=== PATIENT | male | born 1955 | race Caucasian/White ===

== ENCOUNTER 2017-04-25 17:47 | Inpatient (IN) ==
[2017-04-25] MEDS ORDERED: 0.9 % Sodium Chloride 250 ML IVC ONE ×2 (18:13→18:30)
--- NOTE | 2017-04-25 18:20 | Emergency Department Note ---
Disposition Clinical Impression: Pre-syncope Disposition: Still a Patient Condition: Good [facility]: [facility] Care Provider[facility] - Forms: ED Satisfaction Letter Time of Disposition: 19:02 General Adult HPI - General Chief complaint: ED Weakness Stated complaint: low blood pressure Time Seen by Provider: 04/25/17 17:52 Source: patient, EMS Limitations: no limitations Nursing Notes Reviewed: Yes Vital Signs Reviewed: Yes - History of Present Illness HPI Narrative: Patient complaining of weakness that started today after dialysis. States that he was hypotensive on dialysis. After he got home he was weak and felt like he may pass out. Pain Scale: 0 - Related Data Home Medications Medication Instructions Recorded Confirmed Atorvastatin Calcium [Lipitor] 20 mg PO DAILY 10/04/16 10/22/16 Calcium Acetate [Phos-LO] 1,334 mg PO TIDWM 10/04/16 10/22/16 Carboxymethylcellulos/Glycerin 1 drop BOTH EYES QID 10/04/16 10/22/16 [Refresh Optive Gel Eye Drops] Fluticasone Propionate Nasal 100 mcg NS DAILY 10/04/16 10/22/16 [Flonase] Furosemide [Lasix] 40 mg PO QAM 10/04/16 10/22/16 Gabapentin [Neurontin] 300 mg PO BID 10/04/16 10/22/16 Insulin ASPART [NovoLOG] 35 unit SQ BIDWM 10/04/16 10/22/16 Insulin Glargine [Lantus] 78 unit SQ BID 10/04/16 10/22/16 Loratadine [Claritin] 10 mg PO DAILY 10/04/16 10/22/16 [place]-3 Acid Ethyl Esters [Lovaza] 4 gm PO DAILY 10/04/16 10/22/16 Oxycodone HCl 10 mg PO Q6H PRN 10/04/16 10/22/16 Pantoprazole Sodium [Protonix] 40 mg PO DAILY 10/04/16 10/22/16 Paroxetine [Paxil] 20 mg PO QAM 10/04/16 10/22/16 Ranitidine HCl [Heartburn Relief] 150 mg PO DAILY 10/04/16 10/22/16 Sod Chloride/B-6/Zinc Acet/Ca 1 - 2 spray TP AD 10/04/16 10/22/16 [Wound Cleanser] Tamsulosin [Flomax] 0.4 mg PO DAILY 10/04/16 10/22/16 amLODIPine [Norvasc] 5 mg PO DAILY 10/04/16 10/22/16 Furosemide [Lasix] 20 mg PO QPM 10/22/16 10/22/16 Ranolazine [Ranexa] 500 mg PO BID 10/22/16 10/22/16 Previous Rx's Medication Instructions Recorded Nitroglycerin 0.4 mg SL Q5MIN PRN #1 / 10/07/16 Sevelamer [Renvela] 1,600 mg PO TIDWM #180 tablet 10/07/16 Aspirin 81 mg PO DAILY #30 tab.chew 10/24/16 Atorvastatin [Lipitor] 20 mg PO DAILY #30 tablet 10/24/16 Clopidogrel [Plavix] 75 mg PO DAILY #30 tablet 10/24/16 Isosorbide MONOnitrate (24 HR) 30 mg PO DAILY #30 tab.er.24h 10/24/16 [Imdur] Metoprolol [Lopressor] 50 mg PO BID #60 tablet 10/24/16 Allergies Allergy/AdvReac Type Severity Reaction Status Date / Time codeine Allergy Unknown Hives Verified 10/04/16 16:06 Methadone Allergy Unknown Rash Verified 10/04/16 16:06 Penicillins [PCN] Allergy Unknown Rash Verified 10/04/16 16:06 promethazine [From Phenergan] Allergy Unknown Hives Verified 10/04/16 16:06 trazodone Allergy Unknown Itching Verified 10/04/16 16:06 Review of Systems: Patient denies any fevers or chills. He denies any headaches or vision changes. He does report generalized weakness and the feeling of near-syncope. He denies any chest pain or shortness of breath. He denies Coughs or congestion. He denies any abdominal pain nausea vomiting or diarrhea. He does report that his urine has a foul smell occasionally however it is not darker and there is no burning on urination. He denies any hematochezia hematuria or melena. He denies any swelling to his extremities. He states that he did finish his dialysis today. He does this 3 times a week. All systems ED: reviewed and negative except as stated. Past Medical History - Past Medical History Medical history: Reports: coronary artery disease, diabetes, hyperlipidemia, hypertension, renal disease, other Surgical history: Reports: angioplasty/stent (1997), coronary bypass (CABG) ( 1998 and 2002) Psychiatric history: Reports: bipolar - Social History Smoking Status: Never smoker Smokeless Tobacco Status: No Alcohol use: Reports: none Drug use: Reports: opiates Physical Exam - General Limitations: no limitations General appearance: alert, in no apparent distress - Head Head exam: atraumatic, normocephalic, normal inspection - Eye Eye exam: Present: normal appearance, PERRL, EOMI. Absent: scleral icterus - ENT ENT exam: normal exam, normal oropharynx, mucous membranes moist - Neck Neck exam: Present: normal inspection, full ROM, trachea midline. Absent: tenderness, meningismus, lymphadenopathy - Chest Chest inspection: Present: normal inspection, symmetric chest wall rise. Absent : tenderness, rash, abscess - Respiratory Respiratory exam: Present: normal lung sounds bilaterally. Absent: respiratory distress, wheezes - Cardiovascular Cardiovascular exam: Present: regular rate, normal rhythm, normal heart sounds - Abdominal Exam Abdominal exam: Present: soft, Non-Tender, normal bowel sounds. Absent: tenderness, distention, guarding, rebound, rigidity, organomegaly - Extremities Exam Extremities exam: Present: normal inspection, full ROM, normal capillary refill. Absent: tenderness, pedal edema - Back Exam Back exam: Present: normal inspection, full ROM. Absent: tenderness, CVA tenderness (R), CVA tenderness (L) - Neurological Exam Neurological exam: Present: alert, oriented X3 - Psychiatric Psychiatric exam: Present: normal affect, normal mood - Skin Skin exam: Present: warm, dry, intact, normal color Course Course Narrative: Male dialysis patient presents the emergency department complaining of generalized weakness. He states he was at dialysis today and had low blood pressure. He states it was in the 70s systolic. He is to come back out and he is discharged home. He states when he got home he felt dizzy lightheaded like he may pass out. He did not have a syncopal episode. He states that he still feels weak at this time. Patient is hypotensive in the 80's. He denies any chest pain or shortness of breath. He denies any blurry vision or headaches. He denies any urinary symptoms or trouble defecating. He states that his urine does have a foul odor occasionally. He denies any hematochezia or melena. He denies any hematuria. He is alert and oriented 3 mentating appropriately. He states that he had a stress test done yesterday. We will give the patient a small fluid challenge while he is here. We will get a basic lab workup. On patient's EKG he does have some worsening of his ST depressions in leads V4 V5 and V6. I anticipate admission for this patient however he will be signed out to the oncoming night staff. I signed this patient out to the night staff. Vital Signs Temperature 97.7 F 04/25/17 17:50 Pulse Rate 83 04/25/17 17:50 Respiratory Rate 18 04/25/17 17:50 Blood Pressure 88/76 04/25/17 17:50 O2 Sat by Pulse Oximetry 99 04/25/17 17:50 Temperature 97.7 F 04/25/17 17:50 Pulse Rate 81 04/25/17 19:06 Respiratory Rate 16 04/25/17 19:06 Blood Pressure 115/68 04/25/17 19:06 O2 Sat by Pulse Oximetry 100 04/25/17 19:06 Oxygen Delivery Oxygen Delivery Room Air Medical Decision Making - Lab Data Result diagrams: 04/25/17 18:58 Lab Results 04/25/17 04/25/17 Range/Units 18:58 18:58 WBC 4.0 L (4.3-11.1) K/mcL RBC 3.06 L (4.19-5.50) M/mcL Hgb 9.4 L (12.9-16.9) g/dL Hct 27.1 L (37.5-50.1) % MCV 88.6 (83.0-100.0) fL MCH 30.7 (28.0-33.3) pg MCHC 34.7 (31.6-35.5) g/dL RDW 13.4 (11.5-14.5) % Plt Count 116 L (140-400) K/mcL MPV 10.5 (9.4-12.4) fL Immature Gran % 0.8 (0-4) % Seg Neutrophils % 64.0 % Lymphocytes % 22.6 % Monocytes % 9.8 % Eosinophils % 2.3 % Basophils % 0.5 % Neutrophils # 2.6 (1.6-8.9) K/mcL Lymphocytes # 0.9 (0.6-4.6) K/mcL Monocytes # 0.4 (0.0-1.3) K/mcL Eosinophils # 0.1 (0.0-0.6) K/mcL Basophils # 0.0 (0.0-0.2) K/mcL Troponin I 1.25 H* (0-0.03) ng/mL - EKG Data EKG #1 EKG attestation: Yes I reviewed and interpreted this EKG. EKG results narrative: Normal sinus rhythm at a rate of 83. NC interval is 174. QRS duration is 91. QT is 380. QTC is 420. Patient has T-wave inversions in lead one to aVL aVF and V4 V5 and V6. He has ST depressions in leads 1 to aVL V4 V5 and V6. He has ST elevation in leads aVR. The only significant change that I can appreciate from previous EKG dated 10/22/2016 was good deepening of his T-wave inversions in leads V4 V5 and V6. Attestation Statement - Attestation Attestation: I, Virgil Carey, examined this patient and my medical decision-making was reviewed with the J[employer]AG CLIPPER/PA/Advanced Practice Nurse/Resident Physician. I agree with the documented findings, disposition and treatment plan as described except to the extent set forth below. 61-year-old male presents after a near syncopal episode at home. Patient states he is dialysis today and was hypotensive after the treatment. He had a blood pressure in the 70s at that time. He went home feeling well after a small amount of IV fluids. While at home he developed near syncopal episode where he became mildly mildly nauseated. Patient denies chest pain emergency department. He is not short of breath or to and denies other symptoms. EKG was concerning for a normal sinus rhythm with a rate of [address] depressions in V5 V6 with mild elevation in aVR. Patient has no chest pain at this time however we will obtain labs and evaluate further for possible ACS. Patient had a stress testyesterday which was technically difficult and showed a mild area of ischemia on the imaging portion of the stress test. At this time this patient is pending laboratory results and he will be signed out to the night physician pending further evaluation and disposition.
[2017-04-25 19:08] LABS: Basophils % 0.5 %; Eosinophils # 0.1 K/mcL (0.0-0.6); Eosinophils % 2.3 %; Hematocrit 27.1 % (37.5-50.1); Hemoglobin 9.4 g/dL (12.9-16.9); Immature Granulocytes % 0.8 % (0-4); Lymphocytes # 0.9 K/mcL (0.6-4.6); Lymphocytes % 22.6 %; Mean Corpuscular HGB Conc 34.7 g/dL (31.6-35.5); Mean Corpuscular Hemoglobin 30.7 pg (28.0-33.3); Mean Corpuscular Volume 88.6 fL (83.0-100.0); Mean Platelet Volume 10.5 fL (9.4-12.4); Monocytes # 0.4 K/mcL (0.0-1.3); Monocytes % 9.8 %; Neutrophils # 2.6 K/mcL (1.6-8.9); Platelet Count 116 K/mcL (140-400); Red Blood Count 3.06 M/mcL (4.19-5.50); Red Cell Distribution Width 13.4 % (11.5-14.5)
--- NOTE | 2017-04-25 19:11 | Emergency Department Note ---
Disposition Clinical Impression: NSTEMI (non-ST elevated myocardial infarction) Disposition: Admitted As Inpatient Condition: Fair [facility]errals: [facility] [Primary Care Provider[facility] - Forms: ED Satisfaction Letter General Adult HPI - General Chief complaint: ED Weakness Stated complaint: low blood pressure Time Seen by Provider: 04/25/17 17:52 Source: patient, EMS Mode of arrival: EMS Limitations: no limitations Nursing Notes Reviewed: Yes Vital Signs Reviewed: Yes - History of Present Illness HPI Narrative: 61-year-old male history of end-stage renal disease dialysis dependent, CAD, CABG, hypertension who presents to the ER with a chief complaint of of weakness and dizziness. Patient reports that he was at dialysis earlier today and that his blood pressure was low. He states that this happens periodically and they recently changed his metoprolol from 100 mg twice a day to 25 mg twice a day. He states that he went home and then became dizzy and had a near syncopal episode. Patient reports he has felt weak ever since dialysis. He denies any chest pain or shortness of breath. He denies syncope. No other complaints. Pt Subjective Complaint: hypotension, weakness Onset (ago): hour(s) Radiation: non-radiation Pain Scale: 0 Consistency: constant Improves with: nothing Worsens with: nothing Associated symptoms: Reports: weakness. Denies: chest pain, cough, diaphoresis , nausea/vomiting, shortness of breath Treatments Prior to Arrival: none - Related Data Home Medications Medication Instructions Recorded Confirmed Atorvastatin Calcium [Lipitor] 20 mg PO DAILY 10/04/16 10/22/16 Calcium Acetate [Phos-LO] 1,334 mg PO TIDWM 10/04/16 10/22/16 Carboxymethylcellulos/Glycerin 1 drop BOTH EYES QID 10/04/16 10/22/16 [Refresh Optive Gel Eye Drops] Fluticasone Propionate Nasal 100 mcg NS DAILY 10/04/16 10/22/16 [Flonase] Furosemide [Lasix] 40 mg PO QAM 10/04/16 10/22/16 Gabapentin [Neurontin] 300 mg PO BID 10/04/16 10/22/16 Insulin ASPART [NovoLOG] 35 unit SQ BIDWM 10/04/16 10/22/16 Insulin Glargine [Lantus] 78 unit SQ BID 10/04/16 10/22/16 Loratadine [Claritin] 10 mg PO DAILY 10/04/16 10/22/16 [place]-3 Acid Ethyl Esters [Lovaza] 4 gm PO DAILY 10/04/16 10/22/16 Oxycodone HCl 10 mg PO Q6H PRN 10/04/16 10/22/16 Pantoprazole Sodium [Protonix] 40 mg PO DAILY 10/04/16 10/22/16 Paroxetine [Paxil] 20 mg PO QAM 10/04/16 10/22/16 Ranitidine HCl [Heartburn Relief] 150 mg PO DAILY 10/04/16 10/22/16 Sod Chloride/B-6/Zinc Acet/Ca 1 - 2 spray TP AD 10/04/16 10/22/16 [Wound Cleanser] Tamsulosin [Flomax] 0.4 mg PO DAILY 10/04/16 10/22/16 amLODIPine [Norvasc] 5 mg PO DAILY 10/04/16 10/22/16 Furosemide [Lasix] 20 mg PO QPM 10/22/16 10/22/16 Ranolazine [Ranexa] 500 mg PO BID 10/22/16 10/22/16 Previous Rx's Medication Instructions Recorded Nitroglycerin 0.4 mg SL Q5MIN PRN #1 / 10/07/16 Sevelamer [Renvela] 1,600 mg PO TIDWM #180 tablet 10/07/16 Aspirin 81 mg PO DAILY #30 tab.chew 10/24/16 Atorvastatin [Lipitor] 20 mg PO DAILY #30 tablet 10/24/16 Clopidogrel [Plavix] 75 mg PO DAILY #30 tablet 10/24/16 Isosorbide MONOnitrate (24 HR) 30 mg PO DAILY #30 tab.er.24h 10/24/16 [Imdur] Metoprolol [Lopressor] 50 mg PO BID #60 tablet 10/24/16 Allergies Allergy/AdvReac Type Severity Reaction Status Date / Time codeine Allergy Unknown Hives Verified 10/04/16 16:06 Methadone Allergy Unknown Rash Verified 10/04/16 16:06 Penicillins [PCN] Allergy Unknown Rash Verified 10/04/16 16:06 promethazine [From Phenergan] Allergy Unknown Hives Verified 10/04/16 16:06 trazodone Allergy Unknown Itching Verified 10/04/16 16:06 All systems ED: reviewed and negative except as stated. Constitutional: Denies: fever Cardiovascular: Denies: chest pain Respiratory: Denies: cough, dyspnea Gastrointestinal: Denies: abdominal pain, nausea, vomiting Neurological: Reports: weakness Past Medical History - Past Medical History Attestation: Yes The following information was validated with the patient. Source: patient Medical history: Reports: coronary artery disease, diabetes, hyperlipidemia, hypertension, renal disease, other Surgical history: Reports: angioplasty/stent (1997), coronary bypass (CABG) ( 1998 and 2002) Psychiatric history: Reports: bipolar - Social History Smoking Status: Never smoker Smokeless Tobacco Status: No Alcohol use: Reports: none Drug use: Reports: opiates Physical Exam - General Limitations: no limitations General appearance: alert, in no apparent distress - Head Head exam: atraumatic, normocephalic, normal inspection - Eye Eye exam: Present: normal appearance, EOMI - ENT ENT exam: normal exam - Neck Neck exam: Present: normal inspection - Chest Chest inspection: Present: normal inspection, symmetric chest wall rise - Respiratory Respiratory exam: Present: normal lung sounds bilaterally - Cardiovascular Cardiovascular exam: Present: regular rate, normal rhythm, normal heart sounds - Abdominal Exam Abdominal exam: Present: soft, Non-Tender. Absent: tenderness - Extremities Exam Extremities exam: Present: normal inspection, full ROM - Expanded Upper Extremity Exam Shoulder exam: Present: normal inspection, full ROM Arm exam: Present: normal inspection, full ROM Elbow exam: Present: normal inspection, full ROM Forearm/Wrist exam: Present: normal inspection, full ROM Hand exam: Present: normal inspection, full ROM - Expanded Lower Extremity Exam Hip/Pelvis exam: Present: normal inspection, full ROM Upper leg exam: Present: normal inspection, full ROM Knee exam: Present: normal inspection, full ROM Lower leg exam: Present: normal inspection, full ROM Ankle exam: Present: normal inspection, full ROM Foot/toe exam: Present: normal inspection, full ROM - Neurological Exam Neurological exam: Present: alert - Psychiatric Psychiatric exam: Present: normal affect, normal mood - Skin Skin exam: Present: warm, dry, intact, normal color Course Course Narrative: Patient seen and examined. Vital signs reviewed. EKG reviewed as well which shows worsening ST depressions as compared to previous. We will obtain serum chemistry S the patient had labs earlier today and he will likely require admission for his new EKG findings and symptomatology. - Reevaluation(s) Reevaluation #1: I discussed results of labwork and cardiology recommendations with the patient. He is agreeable with staying in the hospital. He still denies chest pain at this time. - Consultations Consultation #1: I discussed this case with the on-call clinical manager home care Dr. Carrillo. Discussed patient's history, vitals, prior cardiac history and current lab and EKG findings. He recommends to heparinize the patient and they will see them in the morning in consultation. Vital Signs Temperature 97.7 F 04/25/17 17:50 Pulse Rate 83 04/25/17 17:50 Respiratory Rate 18 04/25/17 17:50 Blood Pressure 88/76 04/25/17 17:50 O2 Sat by Pulse Oximetry 99 04/25/17 17:50 Temperature 97.7 F 04/25/17 17:50 Pulse Rate 81 04/25/17 19:06 Respiratory Rate 16 04/25/17 19:06 Blood Pressure 115/68 04/25/17 19:06 O2 Sat by Pulse Oximetry 100 04/25/17 19:06 Oxygen Delivery Oxygen Delivery Room Air Medical Decision Making - MDM Narrative Medical decision making narrative: 61-year-old male presents to the ER after dialysis due to weakness and dizziness. He was hypotensive earlier today. Here his EKG shows new ischemic changes from his prior EKG with ST depressions in the lateral leads. His troponin is elevated at 1.25. This case was discussed with the clinical manager home care who recommended to heparinize the patient and admit for serial troponins and cardiac consultation in the morning. - Lab Data Lab results reviewed: Yes I reviewed the patient's lab results. Result diagrams: 04/25/17 18:58 04/25/17 18:58 Lab Results 04/25/17 04/25/17 04/25/17 Range/Units 18:58 18:58 18:58 WBC 4.0 L (4.3-11.1) K/mcL RBC 3.06 L (4.19-5.50) M/mcL Hgb 9.4 L (12.9-16.9) g/dL Hct 27.1 L (37.5-50.1) % MCV 88.6 (83.0-100.0) fL MCH 30.7 (28.0-33.3) pg MCHC 34.7 (31.6-35.5) g/dL RDW 13.4 (11.5-14.5) % Plt Count 116 L (140-400) K/mcL MPV 10.5 (9.4-12.4) fL Immature Gran % 0.8 (0-4) % Seg Neutrophils % 64.0 % Lymphocytes % 22.6 % Monocytes % 9.8 % Eosinophils % 2.3 % Basophils % 0.5 % Neutrophils # 2.6 (1.6-8.9) K/mcL Lymphocytes # 0.9 (0.6-4.6) K/mcL Monocytes # 0.4 (0.0-1.3) K/mcL Eosinophils # 0.1 (0.0-0.6) K/mcL Basophils # 0.0 (0.0-0.2) K/mcL Sodium 135 L (136-145) mEq/L Potassium 4.1 (3.5-4.5) mEq/L Chloride 97 L (98-109) mEq/L Carbon Dioxide 28 (19-29) mEq/L BUN 13 (8-26) mg/dL Creatinine 3.08 H (0.72-1.25) mg/dL Est GFR ( Amer) 25 L (> 60) Est GFR (Non-Af Amer) 21 L (> 60) BUN/Creatinine Ratio 4 L (6-26) Glucose 269 H (70-99) mg/dL Calculated Osmolality 290 (280-300) Calcium 9.1 (8.6-10.8) mg/dL Total Bilirubin 0.5 (0.2-1.2) mg/dL AST 60 H (5-34) Units/L ALT 48 (0-55) Units/L Alkaline Phosphatase 196 H (38-126) Units/L Troponin I 1.25 H* (0-0.03) ng/mL Serum Total Protein 7.8 (6.0-8.3) g/dL Albumin 3.4 L (3.5-5.0) g/dL Globulin 4.4 H (2.4-3.5) g/dL Albumin/Globulin Ratio 0.8 L (1.1-2.2) Urine Color (Yellow) Urine Clarity (Clear) Urine pH (5.0-8.0) pH Units Ur Specific Crystal (1.010-1.025) Urine Protein (Neg-Trace) mg/dL Urine Glucose (UA) (Normal) mg/dL Urine Ketones (Negative) mg/dL Urine Blood (Negative) Urine Nitrite (Negative) Urine Bilirubin (Negative) Urine Urobilinogen (Normal) mg/dL Ur Leukocyte Esterase (Negative) Urine Microscopic RBC (0-3) per hpf Urine Microscopic WBC (0-3) per hpf Ur Squamous Epith Cells (None-Few) per lpf Urine Bacteria (None-Few) per hpf Hyaline Casts (None-Few) per lpf Ur Culture Indicated? (NO) 04/25/17 Range/Units 19:23 WBC (4.3-11.1) K/mcL RBC (4.19-5.50) M/mcL Hgb (12.9-16.9) g/dL Hct (37.5-50.1) % MCV (83.0-100.0) fL MCH (28.0-33.3) pg MCHC (31.6-35.5) g/dL RDW (11.5-14.5) % Plt Count (140-400) K/mcL MPV (9.4-12.4) fL Immature Gran % (0-4) % Seg Neutrophils % % Lymphocytes % % Monocytes % % Eosinophils % % Basophils % % Neutrophils # (1.6-8.9) K/mcL Lymphocytes # (0.6-4.6) K/mcL Monocytes # (0.0-1.3) K/mcL Eosinophils # (0.0-0.6) K/mcL Basophils # (0.0-0.2) K/mcL Sodium (136-145) mEq/L Potassium (3.5-4.5) mEq/L Chloride (98-109) mEq/L Carbon Dioxide (19-29) mEq/L BUN (8-26) mg/dL Creatinine (0.72-1.25) mg/dL Est GFR ( Amer) (> 60) Est GFR (Non-Af Amer) (> 60) BUN/Creatinine Ratio (6-26) Glucose (70-99) mg/dL Calculated Osmolality (280-300) Calcium (8.6-10.8) mg/dL Total Bilirubin (0.2-1.2) mg/dL AST (5-34) Units/L ALT (0-55) Units/L Alkaline Phosphatase (38-126) Units/L Troponin I (0-0.03) ng/mL Serum Total Protein (6.0-8.3) g/dL Albumin (3.5-5.0) g/dL Globulin (2.4-3.5) g/dL Albumin/Globulin Ratio (1.1-2.2) Urine Color Yellow (Yellow) Urine Clarity Cloudy A (Clear) Urine pH 7.0 (5.0-8.0) pH Units Ur Specific Crystal 1.018 (1.010-1.025) Urine Protein >=300 H (Neg-Trace) mg/dL Urine Glucose (UA) 250 H (Normal) mg/dL Urine Ketones Negative (Negative) mg/dL Urine Blood Negative (Negative) Urine Nitrite Negative (Negative) Urine Bilirubin Negative (Negative) Urine Urobilinogen Normal (Normal) mg/dL Ur Leukocyte Esterase Negative (Negative) Urine Microscopic RBC 5-15 H (0-3) per hpf Urine Microscopic WBC 0-3 (0-3) per hpf Ur Squamous Epith Cells Many H (None-Few) per lpf Urine Bacteria None Seen (None-Few) per hpf Hyaline Casts None Seen (None-Few) per lpf Ur Culture Indicated? NO (NO) - EKG Data EKG #1 EKG attestation: Yes I reviewed and interpreted this EKG. EKG results narrative: EKG demonstrates normal sinus rhythm with a rate of 83 bpm. Normal axis. NV interval 174 QRS duration 91 QTC 420 there are T-wave inversions in lead 1 and unchanged from previous EKG. There are also T-wave inversions in lead aVL unchanged from previous EKG. There are T-wave inversions in the lateral leads V4 through V6 with ST depression in leads V5 and V6 that are new compared to his old EKG on 10/22/16. Critical Care Time Critical Care Time: Yes Total Critical Care Time: 45 Attestation: Critical care performed: Time is exclusive of separately billable procedures. Time includes: direct patient care, patient reassessment, coordination of patient care, interpretation of data (laboratory data, radiology data, and respiratory data), review of patient's medical records, medical consultation and documentation of patient care. Procedures included in critical care time: Procedures excluded from critical care time: S.B.A.R. - Michelle Situation: Demographics, MOA Background: Presenting Complaint, Relevant PMH, Meds, & Allergies Assessment: Vital Signs, Course and respsone to treatment, Exam Concerns, Patient/Family Expectation, Pertinant Lab Results, Outstanding Labs Recommendation: Barrier(s) to disposition, Recommendation based on pending studies, treatments, or consults SMele Report Given to: Dr. Wilmer Martinez Repor Time: 19:53 Attestation Statement - Attestation Attestation: I, Maik Samuels MD, personally evaluated this patient and discussed their management with the resident physician. I reviewed the resident's note and agree with the documented findings, medical decision making, and plan of care. This patient was signed out at shift change from day shift, Dr. Carey and Dr. Calhoun. Please refer to their notes for complete details of the history and physical examination. Patient is a 61-year-old male who is on hemodialysis and presented to the emergency department complaining that after his dialysis this morning his blood pressure was low when he felt very weak. He had near syncope but denies loss of consciousness. He denies any chest pain or palpitations or shortness of breath. On examination patient is a well-developed well-nourished male in no acute distress. He is alert and oriented 3. There is no cyanosis or diaphoresis. Breath sounds are clear and equal bilaterally. Heart regular rate and rhythm. Abdomen is soft and nontender with normal bowel sounds. Labs reviewed. Troponin elevated at 1.5. Anterolateral ischemic changes on EKG. Chest x-ray negative. Dr. Bond discussed the case with the clinical manager home care air route controller, Dr. Carrillo, and he recommended the patient be started on heparin and admitted to the hospitalist to trend his troponins. He felt this was likely due to demand ischemia secondary to the patient's hypotension. The hospitalist, Dr. Guillen, was consulted and accepted admission of the patient.
[2017-04-25] MEDS ORDERED: 0.9 % Sodium Chloride 250 ML ONE (19:18)
[2017-04-25 19:26] LABS: Albumin 3.4 g/dL (3.5-5.0); Albumin/Globulin Ratio 0.8 (1.1-2.2); Bilirubin,Total 0.5 mg/dL (0.2-1.2); Calcium 9.1 mg/dL (8.6-10.8); Globulin 4.4 g/dL (2.4-3.5); Potassium 4.1 mEq/L (3.5-4.5); Total Protein 7.8 g/dL (6.0-8.3)
[2017-04-25 19:31] LABS: Bilirubin,Urine Negative (Negative); Blood,Urine Negative (Negative); Clarity,Urine Cloudy (Clear); Color,Urine Yellow (Yellow); Glucose,Urine (UA) 250 mg/dL (Normal); Ketones,Urine Negative (Negative); Leukocyte Esterase,Urine Negative (Negative); Nitrite,Urine Negative (Negative); Protein,Urine >=300 mg/dL (Neg-Trace); Specific Gravity,Urine 1.018 (1.010-1.025); Urobilinogen,Urine Normal (Normal)
[2017-04-25 19:32] LABS: Bacteria,Urine None Seen per hpf (None-Few); Hyaline Casts,Urine None Seen per lpf (None-Few); Squamous Epithelial Cell,Urine Many per lpf (None-Few); WBC,Urine 0-3 per hpf (0-3)
[2017-04-25] MEDS ORDERED: *HR* Heparin 5,000 UNIT/ML VIAL IVP PRN (19:43)
[2017-04-25] MEDS ORDERED: *HR* Heparin 5,000 UNIT/ML VIAL IVP ONE (19:43)
[2017-04-25] MEDS ORDERED: Heparin 25,000 UNIT/500 ML D5W 25,000 UNIT/500 ML MLS IVC SCH (19:45)
[2017-04-25 20:12] LABS: INR 1.1; Prothrombin Time 11.6 Seconds (9.4-12.1)
[2017-04-25 20:15] LABS: Activated Partial Thrombo Time 29.3 Seconds (26.0-36.0)
[2017-04-25] MEDS ORDERED: *HR* OxyCODONE Immed Rel 5 MG TABLET PO ONE (20:26)
[2017-04-25] MEDS ORDERED: Acetaminophen 325 MG TABLET PO PRN (21:01)
[2017-04-25] MEDS ORDERED: Naloxone 0.4 MG/ML INJ IVP PRN (21:01)
[2017-04-25] MEDS ORDERED: Ondansetron 4 MG/2 ML VIAL IVP PRN (21:01)
--- NOTE | 2017-04-25 23:42 | Event Note ---
Date of Encounter: 04/25/17 Time of Encounter: 23:39 I examined this patient and my medical decision-making was reviewed with the INTAKE NURSE/PA/Advanced Practice Nurse/Resident Physician. I agree with the documented findings, disposition and treatment plan as described except to the extent set forth below. 61-year-old male with a history of end-stage renal disease, coronary artery disease status post CABG presented to the emergency department due to lightheadedness. He denies any chest pain, shortness of breath. In the emergency department, he was found to have a non-STEMI and has been started on heparin drip after consultation with cardiology. On exam, lying in bed in no acute distress. Clear breath sounds bilaterally. First and second heart sounds present. Midline CABG scar. EKG reviewed personally-compared to prior EKG, new onset T-wave inversions in leads 2 and aVF suggestive of inferior wall ischemia. Labs reviewed. Assessment/plan: 1. [id number] to the hospital to inpatient status. Expect her to be in the hospital for at least overnight. High risk due to risk of lethal arrhythmias and the need for intravenous heparin drip which needs close monitoring. Expected discharge disposition is back home. Cardiac consult. Continue heparin drip. Continue aspirin, Plavix, statin and beta sam. Echocardiogram. Currently chest pain-free and hence no indication for nitroglycerin. 2. Coronary artery disease status post CABG and currently with non-STEMI 3. End-stage renal disease on hemodialysis-nephrology consult. LANDON Whitlock
--- NOTE | 2017-04-25 23:50 | Internal Med History&Physical ---
Date of Encounter: 04/26/17 Time of Encounter: 23:00 Assessment and Plan (1) NSTEMI (non-ST elevated myocardial infarction) Current visit: Yes Status: Acute Assess: Patient presents with non-NSTEMI and is high risk due to arrhythmias and need for IV heparain which will require close monitoring. Plan: Cardiology consult ordered Heparin drip started EV echocardiogram ordered Continuous cardiac telemetry ordered Continue aspirin therapy Continue Plavix Continue statin and beta-sam Monitor patient and vital signs (2) Coronary artery disease Current visit: Yes Status: Chronic Assess: Patient presents with history of coronary artery disease post CABG which is complicated by current status of non-STEMI. Plan: Cardiology consult ordered Heparin drip started EV echocardiogram ordered Continuous cardiac telemetry ordered Continue aspirin therapy Continue Plavix Continue statin and beta-sam Monitor patient and vital signs Qualifiers: Coronary Disease-Associated Artery/Lesion type: bypass graft [place] vs. transplanted heart: [place] heart Associated angina: with unstable angina Qualified Code(s): I25.700 - Atherosclerosis of coronary artery bypass graft(s) , unspecified, with unstable angina pectoris (3) ESRD (end stage renal disease) on dialysis Current visit: Yes Status: Chronic Assess: Patient presents with end stage renal disease (stage 5) on dialysis. Plan: Nephrology consult ordered (4) Hypertension Current visit: Yes Status: Chronic Assess: Patient presents with history of chronic hypertension. Plan: Continue Lopressor 25 mg BID Qualifiers: Hypertension type: essential hypertension Qualified Code(s): I10 - Essential (primary) hypertension (5) DVT prophylaxis Current visit: Yes Status: Acute Assess: Patient to be placed on DVT prophylaxis due to admission protocol and current diagnosis of non-STEMI. Plan: Heparin drip started Internal Medicine - H&P: HPI Chief complaint: Lightheadedness/Near Syncope Admitted From: Emergency Dept Plans for Post Hospital Care: Home History of present illness: Mr. Velarde is a 61 year old male presents from the ED with chief complaint of dizziness/lightheadedness, weakness in his legs, and near syncope within the past 24 hours after having dialysis performed. Patient states that following dialysis, his blood pressure was low and he had to drink several glasses of water to bring the BP up. He reports that the last time this occurred was several months ago. He also states that his dosing of metoprolol was changed from 100 mg twice a day to 50 mg twice a day to 25 mg twice a day due to his BP being so low. He denies chest pain or shortness of breath, cough diaphoresis nausea, vomiting, or syncope. Patient has history of coronary artery disease, diabetes, hyperlipidemia, hypertension, and end-stage renal disease. Patient also reports anxiety and depression. Patient had angioplasty with 2 stent placement in 1997, coronary bypass (CABG) in 1998 at [address] Patient [address] Dr[address] Castaneda for dialysis. Patient had nuclear stress test performed yesterday () which was considered abnormal. Consults to cardiology and nephrology have been placed. Patient to be placed as inpatient status due to initial diagnosis of non-NSTEMI. Patient is at high risk due to his risk factors of CAD , hypertension, hyperlipidemia, and previous CABG . Orders for continuous cardiac monitoring, EV echocardiogram, and heparin drip have been placed. EKG dated 04/25/17 shows new T-wave inversions in leads II and aVF when compared to previous EKG which is suggestive of inferior wall ischemia. Patient to be monitored closely and placed as falls precautions and [id number] only due to near syncopal episodes. Orthostatic BP and vital signs ordered as well. Past Med Surg Social Fam HX - Past Medical History Source: patient Medical history: coronary artery disease, diabetes, hyperlipidemia, hypertension , renal disease, other Psychiatric history: anxiety, depression - Past Surgical History Surgical History: angioplasty/stent, coronary bypass (CABG), orthopedic, other ( Surgery on right knee x4, scope on left knee x1), other (Amputation of left great toe, re-attachment of right hand after accident at work) - Social History Smoking Status: Never smoker Smokeless Tobacco Status: No Alcohol use: none Drug use: none Occupational status: retired Current living situation: Home - Independent Activity Level: Independent ambulation Recent Out of Country Travel Within the Last 8 Weeks: No Exposure or Possible Exposure to Illness During Travel: No - Family History Mother Adopted: No Family Member Ethnicity: Non- Living Status: Still Living Hx Family Cardiac Disorders: Yes (Heart Disease) Hx Family Cancer: Yes (Melanoma) Hx Family GI Disorders: No Hx Family Endocrine Disorder: Yes (Diabetes) Hx Family Musculoskeletal Disorders: Yes (Arthritis) Hx Family Neuromuscular Disorders: No Hx Family Neurologic Disorders: No Hx Family HEENT Disorders: No Hx Family Autoimmune Disorders: No Father Race: Family Member Ethnicity: Non- Hx Family Cardiac Disorders: Yes (HD) Brother Race: Family Member Ethnicity: Non- Living Status: Still Living Hx Family Cardiac Disorders: Yes (MD) Sister Race: Family Member Ethnicity: Non- Living Status: Still Living Hx Family Endocrine Disorder: Yes (DM) Internal Medicine - H&P: Meds Atorvastatin Calcium [Lipitor] 20 mg PO HS 10/04/16 [History] Calcium Acetate [Phos-LO] 1,334 mg PO TIDWM 10/04/16 [History] Gabapentin [Neurontin] 300 mg PO BID 10/04/16 [History] Loratadine [Claritin] 10 mg PO DAILY 10/04/16 [History] [place]-3 Acid Ethyl Esters [Lovaza] 4 gm PO DAILY 10/04/16 [History] Pantoprazole Sodium [Protonix] 40 mg PO DAILY 10/04/16 [History] Paroxetine [Paxil] 20 mg PO QAM 10/04/16 [History] Ranitidine HCl [Heartburn Relief] 150 mg PO DAILY 10/04/16 [History] Tamsulosin [Flomax] 0.4 mg PO DAILY 10/04/16 [History] amLODIPine [Norvasc] 5 mg PO DAILY 10/04/16 [History] Furosemide [Lasix] 60 mg PO BID 10/22/16 [History] Aspirin 81 mg PO DAILY #30 tab.chew 10/24/16 [Rx] Metoprolol [Lopressor] 50 mg PO BID #60 tablet 10/24/16 [Rx] Insulin ASPART [NovoLOG] 35 unit SQ BIDWM 04/25/17 [History] Allergies codeine Allergy (Unknown, Verified 10/04/16 16:06) Hives Methadone Allergy (Unknown, Verified 10/04/16 16:06) Rash Penicillins [PCN] Allergy (Unknown, Verified 10/04/16 16:06) Rash promethazine [From Phenergan] Allergy (Unknown, Verified 10/04/16 16:06) Hives trazodone Allergy (Unknown, Verified 10/04/16 16:06) Itching All Systems PM: A 10-system review of systems was performed and is negative for pertinent findings except as documented above in the HPI. - Constitutional Constitutional: as per HPI, weakness, no chills, no fever(s), no night sweats - EENT Eyes: no change in vision, no discharge, no pain, no photophobia Ears: no ear discharge, no ear pain, no tinnitus Nose, mouth and throat: no dysphagia, no nasal discharge, no neck pain, no sore throat - Breasts Breasts: as per HPI - Cardiovascular Cardiovascular ROS IM: as per HPI, lightheadedness, no chest pain, no diaphoresis, no dyspnea, no palpitations, no syncope - Respiratory Respiratory: no cough, no dyspnea, no wheezing, no excessive phlegm production - Gastrointestinal Gastrointestinal: no abdominal pain, no diarrhea, no hematemesis, no hematochezia, no melena, no nausea, no vomiting - Genitourinary Genitourinary ROS male: as per HPI - Musculoskeletal Musculoskeletal ROS IM: no numbness, no tingling - Integumentary Integumentary IM: no rash, no unusual bruising - Neurological Neurological ROS: as per HPI, disequilibrium, dizziness, weakness - Psychiatric Psychiatric: as per HPI - Endocrine Endocrine IM: as per HPI - Hematologic/Lymphatic Hematologic/Lymphatic: no easy bruising - Allergic/Immunologic Allergic/Immunologic: as per HPI - Constitutional Vitals: Temp Pulse Resp BP Pulse Ox 98.9 F 86 19 145/65 97 04/25/17 23:37 04/25/17 23:37 04/25/17 23:37 04/25/17 23:37 04/25/17 23:37 General appearance: Present: cooperative, A&O X 3, pleasant, no acute distress, obese, answers questions appropriately - Head Head exam: Present: atraumatic, normocephalic - Eye Eye exam: Present: PERRL, conjuntiva pink, sclera anicteric Pupils: Present: PERRL - ENT ENT exam: Present: normal exam, normal external ear exam - Neck Neck exam general surgery: Present: supple, trachea midline. Absent: lymphadenopathy - Respiratory Respiratory exam: Present: CTAB. Absent: accessory muscle use, rales, rhonchi, wheezes - Cardiovascular Cardiovascular exam: Present: RRR, +S1, +S2. Absent: diastolic murmur, gallop, rubs, systolic murmur - GI/Abdominal GI/Abdominal exam: Present: normal bowel sounds, soft, no peritoneal signs. Absent: distended, tenderness - Rectal Rectal exam: Present: deferred - Additional comments: exam deferred. - Extremities Exam Extremities exam: Present: warm, radial pulses palpable and symetrical. Absent : calf tenderness, cyanotic, pedal edema - Back Exam Back exam: Present: normal inspection - Neurological Exam Neurological exam: Present: CN II-XII intact, oriented X3, no focal deficits. Absent: pronater drift, facial droop, speech deficit - Psychiatric Psychiatric exam: Present: normal affect, normal mood - Skin Skin exam: Present: dry, intact Internal Med - H&P Results - Labs CBC & Chem 7: 04/25/17 18:58 04/25/17 18:58 - EKG Data EKG shows normal: sinus rhythm - EKG Data When compared to previous EKG: there are significant changes EKG comments: 04/26/17 00:07 EKG dated 10/22/16 shows sinus rhythm with borderline right axis deviation, ST deviation and moderate T-wave abnormality, consider lateral ischemia. EKG dated 04/25/17 shows sinus rhythm with left ventricular hypertrophy and ST- T changes [voltage criteria plus ST/T abnormality]. There is new onset of T- wave inversions in leads II and aVF suggestive of inferior wall ischemia. - Diagnostic Studies Chest x-ray Additional comments: Impressions Chest X-Ray 04/25/17 18:11 IMPRESSION: 1. No acute cardiopulmonary abnormality. 2. Stable cardiomegaly. D/ / Arie Tarango MD / Arie Tarango MD Interpreting Provider: Arie Tarango MD
[2017-04-26 02:34] LABS: Basophils % 0.3 %; Eosinophils # 0.1 K/mcL (0.0-0.6); Eosinophils % 2.6 %; Hematocrit 26.7 % (37.5-50.1); Hemoglobin 9.1 g/dL (12.9-16.9); Immature Granulocytes % 0.9 % (0-4); Lymphocytes # 1.1 K/mcL (0.6-4.6); Lymphocytes % 30.1 %; Mean Corpuscular HGB Conc 34.1 g/dL (31.6-35.5); Mean Corpuscular Hemoglobin 30.6 pg (28.0-33.3); Mean Corpuscular Volume 89.9 fL (83.0-100.0); Mean Platelet Volume 11.1 fL (9.4-12.4); Monocytes # 0.3 K/mcL (0.0-1.3); Monocytes % 9.1 %; Red Blood Count 2.97 M/mcL (4.19-5.50); Red Cell Distribution Width 13.4 % (11.5-14.5)
[2017-04-26 02:35] LABS: Platelet Count 95 K/mcL (140-400)
[2017-04-26] MEDS: *HR* OxyCODONE Immed Rel 5 MG TABLET PO PRN ×3 (02:48→18:43)
[2017-04-26 02:56] LABS: Albumin 3.2 g/dL (3.5-5.0); Albumin/Globulin Ratio 0.8 (1.1-2.2); Bilirubin,Total 0.4 mg/dL (0.2-1.2); Calcium 8.6 mg/dL (8.6-10.8); Chol/HDL Ratio 3.7 (0-4.9); Globulin 3.9 g/dL (2.4-3.5); Magnesium 1.6 mg/dL (1.6-2.6); Potassium 4.5 mEq/L (3.5-4.5); Total Protein 7.1 g/dL (6.0-8.3)
[2017-04-26] MEDS: *HR* Heparin 5,000 UNIT/ML VIAL IVP PRN ×2 (02:57→10:14)
--- NOTE | 2017-04-26 08:16 | Nephrology Consult Note ---
Date of Encounter: 04/26/17 Time of Encounter: 08:13 Assessment and Plan (1) ESRD (end stage renal disease) on dialysis Current Visit: Yes Status: Chronic The patient has end-stage renal disease related to diabetic nephropathy. He had post-dialytic hypotension yesterday and presented with an elevated troponin. Does have a history of coronary disease. Heart catheter results from October have been noted. He is currently on heparin for possible end STEMI. He is going to see cardiology while he is here in the hospital. He may require a additional cardiac catheterization. (2) CAD (coronary artery disease), [place] coronary artery Current Visit: Yes Status: Acute Qualifiers: [place] vs. transplanted heart: [place] heart Associated angina: without angina Qualified Code(s): I25.10 - Atherosclerotic heart disease of [place] coronary artery without angina pectoris (3) NSTEMI (non-ST elevated myocardial infarction) Current Visit: No Status: Acute (4) Anemia in CKD (chronic kidney disease) Current Visit: No Status: Chronic History of Present Illness - History of Present Illness This is a 62-year-old male who has end-stage renal disease related to type 1 diabetes. Patient receives dialysis every Friday and . Yesterday the patient went home and experienced post-dialytic hypotension. He presented to the emergency room with a blood pressure of 88/ 76. Current blood pressure is 132/65. He was noted to have a troponin of 1.25 yesterday. This morning it is 0.97. Patient denies any chest pain nausea vomiting diaphoresis or shortness of breath. Patient does have a history of coronary disease. He has had a CABG in 1998 as well as the early 1999s. He had a cardiac catheter in 10/23/2016 which showed severe three-vessel coronary disease and patent grafts 2 out of 2. Ejection fraction was 65%. Patient had a stress test done on April 24 which showed some possible mild ischemia. However apparently the quality of the study was not ideal. Patient is currently on a heparin drip. Currently he has no complaints other than his chronic pain issues. Past Med Surg Social Fam HX - Past Medical History Medical history: coronary artery disease, diabetes, hyperlipidemia, hypertension , renal disease, other Psychiatric history: anxiety, depression - Past Surgical History Surgical History: angioplasty/stent, coronary bypass (CABG), orthopedic, other ( Surgery on right knee x4, scope on left knee x1), other (Amputation of left great toe, re-attachment of right hand after accident at work) - Social History Smoking Status: Never smoker Smokeless Tobacco Status: No Alcohol use: none Drug use: none - Family History Father Race: Family Member Ethnicity: Non- Hx Family Cardiac Disorders: Yes (HD) Brother Race: Family Member Ethnicity: Non- Living Status: Still Living Hx Family Cardiac Disorders: Yes (PR) Sister Race: Family Member Ethnicity: Non- Living Status: Still Living Hx Family Endocrine Disorder: Yes (DM) Mother Adopted: No Family Member Ethnicity: Non- Living Status: Still Living Hx Family Cardiac Disorders: Yes (Heart Disease) Hx Family Cancer: Yes (Melanoma) Hx Family GI Disorders: No Hx Family Endocrine Disorder: Yes (Diabetes) Hx Family Musculoskeletal Disorders: Yes (Arthritis) Hx Family Neuromuscular Disorders: No Hx Family Neurologic Disorders: No Hx Family HEENT Disorders: No Hx Family Autoimmune Disorders: No Medications and Allergies Atorvastatin Calcium [Lipitor] 20 mg PO HS 10/04/16 [History] Calcium Acetate [Phos-LO] 1,334 mg PO TIDWM 10/04/16 [History] Gabapentin [Neurontin] 300 mg PO BID 10/04/16 [History] Loratadine [Claritin] 10 mg PO DAILY 10/04/16 [History] [place]-3 Acid Ethyl Esters [Lovaza] 4 gm PO DAILY 10/04/16 [History] Pantoprazole Sodium [Protonix] 40 mg PO DAILY 10/04/16 [History] Paroxetine [Paxil] 20 mg PO QAM 10/04/16 [History] Ranitidine HCl [Heartburn Relief] 150 mg PO DAILY 10/04/16 [History] Tamsulosin [Flomax] 0.4 mg PO DAILY 10/04/16 [History] amLODIPine [Norvasc] 5 mg PO DAILY 10/04/16 [History] Furosemide [Lasix] 60 mg PO BID 10/22/16 [History] Aspirin 81 mg PO DAILY #30 tab.chew 10/24/16 [Rx] Metoprolol [Lopressor] 50 mg PO BID #60 tablet 10/24/16 [Rx] Insulin ASPART [NovoLOG] 35 unit SQ BIDWM 04/25/17 [History] OxyCODONE Immed Rel [Roxicodone 5 MG] 10 mg PO Q6HR PRN 04/26/17 [History] Allergies codeine Allergy (Unknown, Verified 10/04/16 16:06) Hives Methadone Allergy (Unknown, Verified 10/04/16 16:06) Rash Penicillins [PCN] Allergy (Unknown, Verified 10/04/16 16:06) Rash promethazine [From Phenergan] Allergy (Unknown, Verified 10/04/16 16:06) Hives trazodone Allergy (Unknown, Verified 10/04/16 16:06) Itching Review of Systems Constitutional: as per HPI Eyes: bilateral: blurred vision (patient denies), diplopia (patient denies) Nose, mouth and throat: no dizziness, no headache(s) Cardiovascular: no chest pain, no palpitations Respiratory: no cough, no dyspnea Gastrointestinal: no abdominal pain, no change in bowel habits Musculoskeletal: as per HPI, back pain Integumentary: no hirsutism, no striae Neurological: as per HPI Psychiatric: no depression, no difficulty concentrating Endocrine: as per HPI Hematologic/Lymphatic: no easy bruising, no lymphadenopathy Exam - Vital Signs Vital signs: Initial Vital Signs Temp Pulse Resp BP Pulse Ox 97.7 F 83 18 88/76 99 04/25/17 17:50 04/25/17 17:50 04/25/17 17:50 04/25/17 17:50 04/25/17 17:50 Vital Signs - Last 8 Hours Temp Pulse Resp BP Pulse Ox 04/26/17 06:51 97.7 F 78 16 132/65 98 04/26/17 04:59 98.1 F 80 16 140/58 98 Intake and Output 04/25/17 04/26/17 04/26/17 23:59 07:59 15:59 Intake Total 100 / 100 Balance 100 / 100 Intake: IV Fluids 100 / 100 Heparin 25,000 UNIT/500 100 / 100 ML D5W 25,000 unit In 500 ml @ 10.446 UNIT/KG/HR 19.995 mls/hr IVC .Q24H [id number] Rx#:[id number] Other: # Voids 1 Weight 98.1 kg Blood Glucose* 383 Patient Weight 04/26/17 23:59 Weight 98.1 kg - General Appearance Exam: Patient is alert and oriented. He is in no acute distress. Vital signs are stable. . Lungs clear to auscultation. Heart regular rate and rhythm with a 2/6 stock ejection murmur. Abdomen shows normal bowel sounds of bruits masses gema megaly or tenderness. There is no lower extremity swelling. There is a functioning AV fistula in the left arm. Results - Lab Results 04/26/17 02:08 04/26/17 02:08 Most recent lab results Calcium 8.6 mg/dL (8.6-10.8) 04/26/17 02:08 Magnesium 1.6 mg/dL (1.6-2.6) 04/26/17 02:08 Consult Discharge Plan - Plan [facility]errals: [facility] Care Provider[facility] -
[2017-04-26] MEDS: Insulin LISPRO 300 UNITS/3 ML VIAL SQ SCH ×2 (08:29→18:36)
[2017-04-26] MEDS: Gabapentin 300 MG CAPSULE PO SCH ×2 (08:30→21:07)
[2017-04-26] MEDS: Loratadine 10 MG TABLET PO SCH (08:30)
[2017-04-26] MEDS: Aspirin 81 MG TAB.CHEW PO SCH (08:30)
[2017-04-26] MEDS: Calcium Acetate 667 MG CAPSULE PO SCH ×3 (08:31→18:36)
[2017-04-26] MEDS: OMEGA ACID ETHYL ESTERS PO SCH (08:32)
[2017-04-26] MEDS ORDERED: Pantoprazole 40 MG VIAL IVP SCH (09:00)
[2017-04-26] MEDS ORDERED: Furosemide 20 MG TABLET PO SCH (09:00)
[2017-04-26] MEDS ORDERED: NON-FORMULARY MEDICATION 1 EACH EACH (Ranitidine Hcl [Heartburn Relief] 150 MG) PO SCH (09:00)
[2017-04-26] MEDS ORDERED: amLODIPine 5 MG TABLET PO SCH (09:00)
--- NOTE | 2017-04-26 10:57 | Cardiology Consult Note ---
Date of Encounter: 04/26/17 Time of Encounter: 10:00 Assessment and Plan (1) Elevated troponin Current Visit: Yes Status: Acute Presented with pre-syncopal symptoms, likely secondary to hypovolemia, improved with IVF. Peak troponin 1.25 with downward trend, no significant ECG changes from previous. Chest pain free, denies chest pain prior to admission. Suspect troponin elevation secondary to acute hypotensive episode after HD yesterday, SBP 70's. No indication for cardiac rehab at this time. [facility] 10/2016--patent 2/2 bypass grafts, medical management recommended. Recommend limited echo to evaluate LVEF and wall motion. Stop IV heparin gtt. Continue asa, plavix, and betablocker. Will resume home statin. If not significant findings on TTE, anticipate sign-off. He should follow closely with [facility] within 1-2 weeks after discharge. (2) Renal failure Current Visit: Yes Status: Acute ESRD on HD, MWF. Nephrology consulted and following. Discussion w patient/family: The assessment and plan as outlined above was discussed with the patient and/or family members who expressed understanding and agreement. All questions were answered. Thank you for involving us in the care of your patient. Please call with any questions. The patient will be discussed and reviewed with Dr. Carrillo; changes to be made accordingly. History of Present Illness Consult date: 04/26/17 Requesting physician: Lucio Damon Consult reason: Elevated troponin Chief complaint: Dizziness, pre-syncope History of present illness: Mr. Velarde is a 62 year old male with PMH significant for CAD s/p 2v CABG (1998 ) and redo 3v CABG (2002), ESRD on HD, HTN, DMII, and PUD who presented to the ED with complaints of pre-syncopal symptoms including dizziness and lightheadedness after HD yesterday. He reports hypotension throughout dialysis, SBP was in the 70's. After going home, he continued to feel worse and called EMS. Upon arrival to ED, he was hypotensive with SBP in the 80's, he states symptoms improved with IVF. He denies chest pain or discomfort or dyspnea. Follows with the [facility] for Card[facility]. Recent CV testing at [facility]: [facility] 10/23/16: s/p CABG 2 of 2 patent bypass grafts; medical management recommended, mild, non-obstructive disease in LCx. TTE 10/23/16: EF 55%, severe LVDD, moderate to severely dilated LA, mild MR, TR, and PH, normal wall motion Regadenoson nuclear 04/24/17: poor quality study, global and regional areas of hypokinesis, unable to r/o ischemia in the basal to mid anterior wall, borderline evidence for TID, gated EF unreliable Past Med Surg Social Fam HX - Past Medical History Attestation: Yes The following information was validated with the patient. Source: patient, old records reviewed Medical history: coronary artery disease, diabetes, GERD, hyperlipidemia, hypertension, renal disease Psychiatric history: anxiety, depression - Past Surgical History Surgical History: angioplasty/stent, coronary bypass (CABG) (2v CABG in 1998, redo 3v CABG in 2002), orthopedic, other (Surgery on right knee x4, scope on left knee x1), other (Amputation of left great toe, re-attachment of right hand after accident at work) - Social History Smoking Status: Never smoker Smokeless Tobacco Status: No Alcohol use: none Drug use: none - Family History Father Race: Family Member Ethnicity: Non- Hx Family Cardiac Disorders: Yes (HD) Brother Race: Family Member Ethnicity: Non- Living Status: Still Living Hx Family Cardiac Disorders: Yes ([place]) Sister Race: Family Member Ethnicity: Non- Living Status: Still Living Hx Family Endocrine Disorder: Yes (DM) Mother Adopted: No Family Member Ethnicity: Non- Living Status: Still Living Hx Family Cardiac Disorders: Yes (Heart Disease) Hx Family Cancer: Yes (Melanoma) Hx Family GI Disorders: No Hx Family Endocrine Disorder: Yes (Diabetes) Hx Family Musculoskeletal Disorders: Yes (Arthritis) Hx Family Neuromuscular Disorders: No Hx Family Neurologic Disorders: No Hx Family HEENT Disorders: No Hx Family Autoimmune Disorders: No Medications and Allergies Atorvastatin Calcium [Lipitor] 20 mg PO HS 10/04/16 [History] Calcium Acetate [Phos-LO] 1,334 mg PO TIDWM 10/04/16 [History] Gabapentin [Neurontin] 300 mg PO BID 10/04/16 [History] Loratadine [Claritin] 10 mg PO DAILY 10/04/16 [History] [place]-3 Acid Ethyl Esters [Lovaza] 4 gm PO DAILY 10/04/16 [History] Pantoprazole Sodium [Protonix] 40 mg PO DAILY 10/04/16 [History] Paroxetine [Paxil] 20 mg PO QAM 10/04/16 [History] Ranitidine HCl [Heartburn Relief] 150 mg PO DAILY 10/04/16 [History] Tamsulosin [Flomax] 0.4 mg PO DAILY 10/04/16 [History] amLODIPine [Norvasc] 5 mg PO DAILY 10/04/16 [History] Furosemide [Lasix] 60 mg PO BID 10/22/16 [History] Aspirin 81 mg PO DAILY #30 tab.chew 10/24/16 [Rx] Metoprolol [Lopressor] 50 mg PO BID #60 tablet 10/24/16 [Rx] Insulin ASPART [NovoLOG] 35 unit SQ BIDWM 04/25/17 [History] OxyCODONE Immed Rel [Roxicodone 5 MG] 10 mg PO Q6HR PRN 04/26/17 [History] Allergies codeine Allergy (Unknown, Verified 10/04/16 16:06) Hives Methadone Allergy (Unknown, Verified 10/04/16 16:06) Rash Penicillins [PCN] Allergy (Unknown, Verified 10/04/16 16:06) Rash promethazine [From Phenergan] Allergy (Unknown, Verified 10/04/16 16:06) Hives trazodone Allergy (Unknown, Verified 10/04/16 16:06) Itching All Systems Review: A 10-system review of systems was performed and is negative for pertinent findings except as documented above in the HPI. - Cardiovascular Cardiovascular: as per HPI Physical Examination General: Conversant, Other (appears chronically ill) Cardiac: Reg Rate and Rhythm, Normal S1 and S2 Lungs: Normal Breath Sounds Neuro: Alert and responsive Abdomen: Soft Skin: No rashes noted on visualized skin Musculoskeletal: No Chest Wall Tenderness Extremities: No Edema, Normal Pulses Results 04/26/17 02:08 04/26/17 02:08 Lab Results 04/26/17 04/26/17 04/26/17 02:08 02:08 02:08 WBC 3.5 L Hgb 9.1 L Hct 26.7 L Plt Count 95 L APTT 32.0 Sodium 133 L Potassium 4.5 Chloride 96 L Carbon Dioxide 26 BUN 20 Creatinine 3.72 H Glucose 370 H Calcium 8.6 Magnesium 1.6 Total Bilirubin 0.4 AST 40 H ALT 38 Alkaline Phosphatase 176 H Troponin I B-Natriuretic Peptide 04/26/17 04/26/17 04/26/17 02:08 05:52 09:34 WBC Hgb Hct Plt Count APTT 38.8 H Sodium Potassium Chloride Carbon Dioxide BUN Creatinine Glucose Calcium Magnesium Total Bilirubin AST ALT Alkaline Phosphatase Troponin I 0.97 H* B-Natriuretic Peptide 463 H - Imaging and Cardiology Stress Test: report reviewed Echo: report reviewed Cardiac cath: report reviewed Other Results: 12 hour tele: avg HR=80 SR. No significant event noted. - EKG Interpretation EKG results cardiology: personally reviewed Consult Discharge Plan - Plan [facility]errals: [facility] [Primary Care Provider] -
--- NOTE | 2017-04-26 14:59 | Internal Med Progress Note ---
Date of Encounter: 04/26/17 Time of Encounter: 11:30 - Assessment and plan (1) Hypotension of hemodialysis Current Visit: Yes Status: Acute Assessment and plan: Pt stated his BP has been on low side in dialysis recently. Will monitor BP here. (2) Coronary artery disease Current Visit: Yes Status: Chronic Assessment and plan: No acute issues at this time. Qualifiers: Coronary Disease-Associated Artery/Lesion type: bypass graft [place] vs. transplanted heart: [place] heart Associated angina: without angina Qualified Code(s): I25.810 - Atherosclerosis of coronary artery bypass graft(s) without angina pectoris (3) Diabetes mellitus Current Visit: Yes Status: Chronic Assessment and plan: Following blood sugars. Qualifiers: Diabetes mellitus type: type 2 Diabetes mellitus complication status: with kidney complications Diabetes mellitus complication detail: with chronic kidney disease Diabetes mellitus watermaster insulin use: with correction use Chronic kidney disease stage: stage 5, not on chronic dialysis Qualified Code( s): E11.22 - Type 2 diabetes mellitus with diabetic chronic kidney disease; N18.5 - Chronic kidney disease, stage 5; Z79.4 - nursing home (current) use of insulin (4) Anemia in CKD (chronic kidney disease) Current Visit: No Status: Chronic Assessment and plan: Following. (5) Diastolic CHF, chronic Current Visit: No Status: Chronic Assessment and plan: Continue current management. (6) Elevated troponin Current Visit: Yes Status: Acute Assessment and plan: Demand ischemia. Appreciate cardiology input. (7) ESRD (end stage renal disease) on dialysis Current Visit: Yes Status: Chronic Assessment and plan: Per Dr. Castaneda. - Subjective Interval history: Mr. Velarde is currently admitted for hypotension post dialysis and elevated troponin. He remains moderate to high risk due to potential for worsening cardiac symptoms. Mr. Velarde feels OK but is very tired. No CP or SOB. Says BP was low after dialysis. No dysuria. No cough. No GI symptoms. No fever or chills. - Constitutional Vitals: Temp Pulse Resp BP Pulse Ox 97.6 F 74 16 134/76 98 04/26/17 11:02 04/26/17 11:02 04/26/17 11:02 04/26/17 11:02 04/26/17 11:02 General appearance: Present: cooperative, A&O X 3, pleasant, answers questions appropriately - Head Head exam: Present: normocephalic - Eye Eye exam: Present: EOMI, conjuntiva pink - ENT ENT exam: Present: mucous membranes moist - Respiratory Respiratory exam: Present: decreased breath sounds, CTAB - Cardiovascular Cardiovascular exam: Present: RRR. Absent: tachycardia - GI/Abdominal GI/Abdominal exam: Present: soft. Absent: mass, tenderness - Extremities Exam Extremities exam: Present: warm. Absent: tenderness - Neurological Exam Neurological exam: Present: alert, oriented X3 - Psychiatric Psychiatric exam: Present: normal affect, normal mood Internal Medicine: Result - Labs CBC & Chem 7: 04/26/17 02:08 04/26/17 02:08 Labs: Short CBC 04/26/17 Range/Units 02:08 WBC 3.5 L (4.3-11.1) K/mcL Hgb 9.1 L (12.9-16.9) g/dL Hct 26.7 L (37.5-50.1) % Plt Count 95 L (140-400) K/mcL Neutrophils # 2.0 (1.6-8.9) K/mcL BMP 04/26/17 02:08 Sodium 133 L Potassium 4.5 Chloride 96 L Carbon Dioxide 26 BUN 20 Creatinine 3.72 H Glucose 370 H Calcium 8.6 Cardiac Enzymes 04/26/17 Range/Units 05:52 Troponin I 0.97 H* (0-0.03) ng/mL Liver Function 04/26/17 Range/Units 02:08 Total Bilirubin 0.4 (0.2-1.2) mg/dL AST 40 H (5-34) Units/L ALT 38 (0-55) Units/L Alkaline Phosphatase 176 H (38-126) Units/L Albumin 3.2 L (3.5-5.0) g/dL - ABG Interpretation ABG results: PT/INR, D-dimer PT 11.6 Seconds (9.4-12.1) 04/25/17 18:58 Consult Discharge Plan - Plan [facility]errals: [facility] [Primary Care Provider] -
[2017-04-26] MEDS: *HR* Heparin 5,000 UNIT/ML VIAL SQ SCH (18:37)
[2017-04-27 04:33] LABS: Red Cell Distribution Width 13.5 % (11.5-14.5)
[2017-04-27 04:35] LABS: Hematocrit 25.3 % (37.5-50.1); Hemoglobin 8.6 g/dL (12.9-16.9); Immature Platelets 5.3 % (1.1-6.1); Mean Corpuscular Hemoglobin 30.5 pg (28.0-33.3); Mean Corpuscular Volume 89.7 fL (83.0-100.0); Mean Platelet Volume 11.4 fL (9.4-12.4); Red Blood Count 2.82 M/mcL (4.19-5.50)
[2017-04-27 04:48] LABS: Calcium 9.3 mg/dL (8.6-10.8); Potassium 4.7 mEq/L (3.5-4.5)
[2017-04-27] MEDS: *HR* Heparin 5,000 UNIT/ML VIAL SQ SCH ×2 (05:14→17:14)
[2017-04-27] MEDS: Aspirin 81 MG TAB.CHEW PO SCH (08:09)
[2017-04-27] MEDS: Insulin LISPRO 300 UNITS/3 ML VIAL SQ SCH ×2 (08:10→17:13)
[2017-04-27] MEDS: Gabapentin 300 MG CAPSULE PO SCH ×2 (08:10→20:30)
[2017-04-27] MEDS: Calcium Acetate 667 MG CAPSULE PO SCH ×3 (08:10→17:14)
[2017-04-27] MEDS: Loratadine 10 MG TABLET PO SCH (08:10)
[2017-04-27] MEDS: OMEGA ACID ETHYL ESTERS PO SCH (08:11)
[2017-04-27] MEDS: *HR* OxyCODONE Immed Rel 5 MG TABLET PO PRN ×2 (11:02→17:20)
--- NOTE | 2017-04-27 13:45 | Internal Med Progress Note ---
Date of Encounter: 04/27/17 Time of Encounter: 11:30 - Assessment and plan (1) Hypotension of hemodialysis Current Visit: Yes Status: Resolved Assessment and plan: BP beginning to increase. Will increase metoprolol to home dose. Norvasc still on hold. (2) Thrombocytopenia Current Visit: Yes Status: Acute Assessment and plan: ? med related. Recheck tomorrow. (3) Coronary artery disease Current Visit: Yes Status: Chronic Assessment and plan: No acute issues at this time. Qualifiers: Coronary Disease-Associated Artery/Lesion type: bypass graft [place] vs. transplanted heart: [place] heart Associated angina: without angina Qualified Code(s): I25.810 - Atherosclerosis of coronary artery bypass graft(s) without angina pectoris (4) Diabetes mellitus Current Visit: Yes Status: Chronic Assessment and plan: Very uncontrolled but is only on short acting insulin. Add back Lantus. 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 (6) Diastolic CHF, chronic Current Visit: No Status: Chronic Assessment and plan: Continue current management. (7) Elevated troponin Current Visit: Yes Status: Acute Assessment and plan: Demand ischemia. Appreciate cardiology input. - Subjective Interval history: Mr. Velarde is currently admitted for hypotension post dialysis and elevated troponin. He remains moderate to high risk due to potential for worsening cardiac symptoms. Mr. Velarde feels somewhat better today as well. No cough. No fever. No CP or worsening dyspnea. BP has been higher. Blood sugar very high - has not been on the long acting med (Lantus). - Constitutional Vitals: Temp Pulse Resp BP Pulse Ox 98.1 F 73 16 117/51 98 04/27/17 11:23 04/27/17 11:23 04/27/17 11:23 04/27/17 11:23 04/27/17 11:23 General appearance: Present: cooperative, A&O X 3, pleasant, answers questions appropriately - Head Head exam: Present: normocephalic - Eye Eye exam: Present: conjuntiva pink - ENT ENT exam: Present: mucous membranes moist - Respiratory Respiratory exam: Present: decreased breath sounds, CTAB. Absent: rhonchi, wheezes - Cardiovascular Cardiovascular exam: Present: RRR. Absent: tachycardia - GI/Abdominal GI/Abdominal exam: Present: soft, no peritoneal signs. Absent: tenderness - Extremities Exam Extremities exam: Present: warm. Absent: tenderness - Neurological Exam Neurological exam: Present: alert, oriented X3 - Psychiatric Psychiatric exam: Present: normal affect, normal mood Internal Medicine: Result - Labs CBC & Chem 7: 04/27/17 03:54 04/27/17 03:54 Labs: Short CBC 04/27/17 Range/Units 03:54 WBC 3.5 L (4.3-11.1) K/mcL Hgb 8.6 L (12.9-16.9) g/dL Hct 25.3 L (37.5-50.1) % Plt Count 90 L (140-400) K/mcL [facility] 04/27/17 03:54 Sodium 134 L Potassium 4.7 H Chloride 96 L Carbon Dioxide 26 BUN 30 H D Creatinine 4.59 H Glucose 261 H Calcium 9.3 - ABG Interpretation ABG results: PT/INR, D-dimer PT 11.6 Seconds (9.4-12.1) 04/25/17 18:58 Consult Discharge Plan - Plan [facility]errals: [facility] [Primary Care Provider] -
[2017-04-27] MEDS: Insulin DETEMIR 100 UNIT/ML X5UNITS SQ SCH (20:30)
[2017-04-28] MEDS: *HR* OxyCODONE Immed Rel 5 MG TABLET PO PRN ×3 (00:43→16:57)
[2017-04-28 03:47] LABS: Hematocrit 24.5 % (37.5-50.1); Hemoglobin 8.2 g/dL (12.9-16.9); Mean Corpuscular HGB Conc 33.5 g/dL (31.6-35.5); Mean Corpuscular Hemoglobin 30.3 pg (28.0-33.3); Mean Corpuscular Volume 90.4 fL (83.0-100.0); Mean Platelet Volume 11.2 fL (9.4-12.4); Red Blood Count 2.71 M/mcL (4.19-5.50); Red Cell Distribution Width 13.9 % (11.5-14.5)
[2017-04-28 03:49] LABS: Platelet Count 88 K/mcL (140-400)
[2017-04-28 03:59] LABS: Calcium 9.3 mg/dL (8.6-10.8); Potassium 5.1 mEq/L (3.5-4.5)
--- NOTE | 2017-04-28 07:08 | Electrocardiograph Report ---
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
[2017-04-28] MEDS ORDERED: 0.9 % Sodium Chloride 250 ML IVC PRN (08:37)
--- NOTE | 2017-04-28 08:38 | Nephrology Progress Note ---
Date of Encounter: 04/28/17 Time of Encounter: 08:36 - Assessment and Plan (1) ESRD (end stage renal disease) on dialysis Current Visit: Yes Status: Chronic Patient will undergo dialysis today. Orders have been submitted. The patient may be able to be discharged home later today. (2) CAD (coronary artery disease), [place] coronary artery Current Visit: Yes Status: Acute Qualifiers: [place] vs. transplanted heart: [place] heart Associated angina: without angina Qualified Code(s): I25.10 - Atherosclerotic heart disease of [place] coronary artery without angina pectoris (3) NSTEMI (non-ST elevated myocardial infarction) Current Visit: No Status: Acute (4) Anemia in CKD (chronic kidney disease) Current Visit: No Status: Chronic Subjective Interval history: Cardiology input has been noted. The patient denies any chest pain or shortness of breath. He has had minimal dizziness. His main complaint is that of his chronic pain. He also has unsteadiness on his feet. Patient will undergo his usual dialysis today. Objective - Vital Signs Vital signs: Vital Signs Temp Pulse Resp BP Pulse Ox 04/28/17 06:56 97.7 F 76 16 147/65 95 04/28/17 03:53 97.7 F 77 16 139/71 96 04/27/17 20:30 97 04/27/17 20:21 97.7 F 79 16 171/80 97 04/27/17 15:27 98 F 78 16 133/72 98 04/27/17 11:23 98.1 F 73 16 117/51 98 Intake and Output 04/27/17 04/28/17 04/28/17 23:59 07:59 15:59 Intake Total 0 / 0 200 / 200 Balance 0 / 0 200 / 200 Intake: Oral 0 / 0 200 / 200 Other: # Voids 0 Weight 98.6 kg Blood Glucose* 216 292 Patient Weight 04/28/17 23:59 Weight 98.6 kg - General Appearance Exam: Patient is alert and oriented. He is in no acute distress. Lungs clear to auscultation. Heart regular rate and rhythm. Abdomen is benign. There is no lower extremity swelling. There is a functioning AV fistula in the left arm. - Lab 04/28/17 03:22 04/28/17 03:22 Most recent lab results Calcium 9.3 mg/dL (8.6-10.8) 04/28/17 03:22 Magnesium 1.6 mg/dL (1.6-2.6) 04/26/17 02:08 Consult Discharge Plan - Plan [facility]errals: [facility] [Primary Care Provider] -
[2017-04-28] MEDS: Insulin DETEMIR 100 UNIT/ML X5UNITS SQ SCH (09:09)
[2017-04-28] MEDS: *HR* Heparin 5,000 UNIT/ML VIAL SQ SCH ×2 (09:09→17:45)
[2017-04-28] MEDS: Calcium Acetate 667 MG CAPSULE PO SCH ×3 (09:10→16:57)
[2017-04-28] MEDS: Loratadine 10 MG TABLET PO SCH (09:10)
[2017-04-28] MEDS: Gabapentin 300 MG CAPSULE PO SCH (09:10)
[2017-04-28] MEDS: Aspirin 81 MG TAB.CHEW PO SCH (09:10)
[2017-04-28] MEDS: OMEGA ACID ETHYL ESTERS PO SCH (09:11)
[2017-04-28] MEDS: Insulin LISPRO 300 UNITS/3 ML VIAL SQ SCH ×2 (09:12→16:58)
[2017-04-28] MEDS ORDERED: 0.9 % Sodium Chloride 2,000 ML ONE (12:36)
[2017-04-28 13:04] VITALS: BP 135/60
--- NOTE | 2017-04-28 13:34 | Discharge Summary ---
<Arie Ahumada - Last Filed: 04/28/17 14:10> Date of Encounter: 04/28/17 Time of Encounter: 13:31 - Discharge Diagnosis (1) Near syncope Priority: Primary Status: Acute (2) Coronary artery disease Priority: Secondary Status: Chronic Qualifiers: Coronary Disease-Associated Artery/Lesion type: bypass graft [place] vs. transplanted heart: [place] heart Associated angina: without angina Qualified Code(s): I25.810 - Atherosclerosis of coronary artery bypass graft(s) without angina pectoris (3) NSTEMI (non-ST elevated myocardial infarction) Priority: Primary Status: Acute (4) Chronic kidney disease, stage V Priority: Secondary Status: Chronic (5) ESRD (end stage renal disease) on dialysis Priority: Primary Status: Chronic (6) Diastolic CHF, chronic Priority: Secondary Status: Chronic (7) Hypotension of hemodialysis Priority: Primary Status: Resolved (8) Thrombocytopenia Priority: Secondary Status: Acute (9) DM renal manif type II Priority: Secondary Status: Acute Qualifiers: Qualified Code(s): E11.22 - Type 2 diabetes mellitus with diabetic chronic kidney disease; N18.6 - End stage renal disease; Z79.4 - lobsterman (current) use of insulin; Z99.2 - Dependence on renal dialysis - Discharge Medications Prescriptions: Clopidogrel [Plavix] 75 mg PO DAILY #30 tablet Home Medications: Atorvastatin Calcium [Lipitor] 20 mg PO HS 10/04/16 [History] Calcium Acetate [Phos-LO] 1,334 mg PO TIDWM 10/04/16 [History] Gabapentin [Neurontin] 300 mg PO BID 10/04/16 [History] Loratadine [Claritin] 10 mg PO DAILY 10/04/16 [History] [place]-3 Acid Ethyl Esters [Lovaza] 4 gm PO DAILY 10/04/16 [History] Pantoprazole Sodium [Protonix] 40 mg PO DAILY 10/04/16 [History] Paroxetine [Paxil] 20 mg PO QAM 10/04/16 [History] Ranitidine HCl [Heartburn Relief] 150 mg PO DAILY 10/04/16 [History] Tamsulosin [Flomax] 0.4 mg PO DAILY 10/04/16 [History] Aspirin 81 mg PO DAILY #30 tab.chew 10/24/16 [Rx] Metoprolol [Lopressor] 50 mg PO BID #60 tablet 10/24/16 [Rx] Insulin ASPART [NovoLOG] 35 unit SQ BIDWM 04/25/17 [History] OxyCODONE Immed Rel [Roxicodone 5 MG] 10 mg PO Q6HR PRN 04/26/17 [History] Clopidogrel [Plavix] 75 mg PO DAILY #30 tablet 04/28/17 [Rx] Allergies/Adverse Reactions: Allergies codeine Allergy (Unknown, Verified 10/04/16 16:06) Hives Methadone Allergy (Unknown, Verified 10/04/16 16:06) Rash Penicillins [PCN] Allergy (Unknown, Verified 10/04/16 16:06) Rash promethazine [From Phenergan] Allergy (Unknown, Verified 10/04/16 16:06) Hives trazodone Allergy (Unknown, Verified 10/04/16 16:06) Itching Procedures/tests Complete & Pending: Procedures Performed prior 72 hours Category Date Time Status EV limited echocardiogram Routine Y 04/26/17 10:39 Completed Date of admission: 04/26/17 00:29 [facility] physician[facility] Consults: 04/28/17 08:45 Consult to Dialysis [CONS] ONCE Discharging clinician: Arie Ahumada Anticipated date of discharge: 04/28/17 - Patient Status Disposition: Home, Self-Care Condition: Fair Functional capacity at discharge: uses cane/walker Overall status at discharge: patient is progressing back to baseline - Discharge Instructions Instructions: Clopidogrel (By mouth), Renal Failure Diet (DC), Dialysis Diet ( DC), Chronic Kidney Disease, Caddie Supervisor (GEN) Follow Up With: [facility] [Primary Care Provider] - (F/u with his PCP in a week for hospital d/c f /u.) [facility] [Outside] (F/u with 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 Velarde is a 62 year old male with chief complaint of dizziness/ lightheadedness, weakness in his legs, and near syncope within the past 24 hours after having dialysis performed. Patient states that following dialysis, his blood pressure was low and he had to drink several glasses of water to bring the BP up. Patient had nuclear stress test performed (04/24/17) which was considered abnormal. 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 During this hospital stay, CCB and lasix home dosages were held and his BP improved. Nephro was consulted for M,W, F HD. 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 - Time Spent with Patient Total time spent providing and/or coordinating discharge services: - Constitutional Vitals: Temp Pulse Resp BP Pulse Ox 98.8 F 76 14 135/60 95 04/28/17 12:45 04/28/17 08:58 04/28/17 12:45 04/28/17 12:45 04/28/17 09:30 General appearance: Present: cooperative, A&O X 3, pleasant, answers questions appropriately - Respiratory Respiratory exam: Present: CTAB. Absent: rales, rhonchi, wheezes - Cardiovascular Cardiovascular exam: Present: RRR, +S1, +S2. Absent: clicks, diastolic murmur, gallop, systolic murmur - GI/Abdominal GI/Abdominal exam: Present: normal bowel sounds, soft. Absent: distended, firm , guarding, rebound, rigid, tenderness - Extremities Exam Extremities exam: Present: warm, radial pulses palpable and symetrical. Absent : calf tenderness, tenderness <Phillip Iqbal - Last Filed: 04/28/17 15:52> Date of Encounter: 04/28/17 - Discharge Diagnosis (1) Hypotension of hemodialysis Status: Resolved (2) Thrombocytopenia Status: Acute (3) Coronary artery disease Status: Chronic Qualifiers: Coronary Disease-Associated Artery/Lesion type: bypass graft [place] vs. transplanted heart: [place] heart Associated angina: without angina Qualified Code(s): I25.810 - Atherosclerosis of coronary artery bypass graft(s) without angina pectoris (4) Diabetes mellitus Priority: Secondary Status: Chronic Qualifiers: Diabetes mellitus type: type 2 Diabetes mellitus complication status: with kidney complications Diabetes mellitus complication detail: with chronic kidney disease Diabetes mellitus senior living insulin use: with terminal operator use Chronic kidney disease stage: on chronic dialysis Qualified Code(s): E11.22 - Type 2 diabetes mellitus with diabetic chronic kidney disease; N18.6 - End stage renal disease; Z79.4 - alf (current) use of insulin; Z99.2 - Dependence on renal dialysis (5) Anemia in CKD (chronic kidney disease) Priority: Secondary Status: Chronic (6) Diastolic CHF, chronic Status: Chronic (7) Elevated troponin Priority: Secondary Status: Resolved Procedures/tests Complete & Pending: Procedures Performed prior 72 hours Category Date Time Status EV limited echocardiogram Routine Y 04/26/17 10:39 Completed Date of admission: 04/26/17 00:29 Primary care physician: PCP CT Consults: 04/28/17 08:45 Consult to Dialysis [CONS] ONCE Hospital course: Mr. Velarde is a 62 year old male - Time Spent with Patient Total time spent providing and/or coordinating discharge services: 36min - Constitutional Vitals: Temp Pulse Resp BP Pulse Ox 98.8 F 76 14 135/60 95 04/28/17 12:45 04/28/17 08:58 04/28/17 12:45 04/28/17 12:45 04/28/17 09:30 - Attending Attestation I examined this patient and my medical decision-making was reviewed with the Resident Physician on 04/28/17. I agree with the documented findings, disposition and treatment plan as described except to the extent set forth below. Mr Velarde is feeling OK at this time. He has had no issues since admit. BP has been stable even in dialysis today. No fever. Exam Alert. Comfortable Heart reg No edema Plan D/C today Hold Lasix at discharge Follow with PCP and Dr. Castaneda.
== END 2017-04-28 18:50 | disposition home or self-care (01) | DRG 280 ==
LOC: 2NENU 17:47 → EMEROO 17:47 → 2NENU 21:09
PROVIDERS: ADMIT Internal Medicine; ATTEND Internal Medicine

== ENCOUNTER 2017-05-23 18:57 | Inpatient (IN) ==
[2017-05-23] MEDS ORDERED: Naloxone 0.4 MG/ML INJ IVP PRN (21:21)
--- NOTE | 2017-05-23 21:26 | Internal Med History&Physical ---
Date of Encounter: 05/23/17 Time of Encounter: 21:26 Assessment and Plan (1) Physical deconditioning Current visit: Yes Status: Acute patient's presentation is concerning for deconditioning, we will get PT/OT to weigh in (2) Type 2 diabetes mellitus with diabetic chronic kidney disease Current visit: Yes Status: Chronic his A1c was 7.9% in 10/2016, he is on insulin regimen, we will continue his home basal bolus regimen with FS ACHS, will update A1c Qualifiers: Diabetes mellitus moth exterminator insulin use: with mcc use Chronic kidney disease stage: on chronic dialysis Qualified Code(s): E11.22 - Type 2 diabetes mellitus with diabetic chronic kidney disease; N18.6 - End stage renal disease; Z79.4 - intermediate (current) use of insulin; Z99.2 - Dependence on renal dialysis (3) Hypertension Current visit: Yes Status: Chronic we will continue his home antihypertensive regimen, he reports that for some time now he has been hypotensive during dialysis prompting a reduction in his metoprolol dose from 100mg BID to 25mg PO Q12H, we will continue to monitor closely Qualifiers: Hypertension type: essential hypertension Qualified Code(s): I10 - Essential (primary) hypertension (4) ESRD (end stage renal disease) on dialysis Current visit: Yes Status: Chronic he has ESRD on HD MWF, he missed today, clinically he looks euvolumic and his CXR was unremarkable, we will get nephrology to weigh in regarding inpatient dialysis Internal Medicine - H&P: HPI Chief complaint: fatigue Admitted From: Emergency Dept Plans for Post Hospital Care: Home History of present illness: Mr. Velarde is a 62 year old male with a hx of ESRD on HD MWF/HTN/DM2 among other comorbidities was sent here from [facility] as a referral after he showed up there today. He reports that for the past couple of weeks he has been unwell with complaints of fatigue, lightheadedness, generalized weakness, headache and dyspnea. He has been able to follow his regular HD schedule despite these limiting symptoms but his symptoms worsened over the past 3 days so he was unable to go for HD today and rather went to the ER for further evaluation. He was able to have his HD on Friday per schedule. He denies fever but reports chills, has nausea but no vomiting and also reports non productive cough. He still produces urine but has no concerning urinary symptoms. Brad transferred him here for further evaluation. Past Med Surg Social Fam HX - Past Medical History Medical history: coronary artery disease, diabetes, GERD, hyperlipidemia, hypertension, renal disease (ESRD on HD) Psychiatric history: anxiety, depression - Past Surgical History Surgical History: angioplasty/stent, coronary bypass (CABG) (2v CABG in 1998, redo 3v CABG in 2002), orthopedic, other (Surgery on right knee x4, scope on left knee x1), other (Amputation of left great toe, re-attachment of right hand after accident at work) - Social History Smoking Status: Never smoker Smokeless Tobacco Status: No Alcohol use: none Drug use: none - Family History Father Family Member Ethnicity: Non- Hx Family Cardiac Disorders: Yes (HD) Brother Family Member Ethnicity: Non- Living Status: Still Living Hx Family Cardiac Disorders: Yes ([place]) Sister Family Member Ethnicity: Non- Living Status: Still Living Hx Family Endocrine Disorder: Yes (DM) Mother Adopted: No Family Member Ethnicity: Non- Living Status: Still Living Hx Family Cardiac Disorders: Yes (Heart Disease) Hx Family Cancer: Yes (Melanoma) Hx Family GI Disorders: No Hx Family Endocrine Disorder: Yes (Diabetes) Hx Family Neuromuscular Disorders: No Hx Family Neurologic Disorders: No Hx Family HEENT Disorders: No Hx Family Autoimmune Disorders: No Internal Medicine - H&P: Meds Atorvastatin Calcium [Lipitor] 20 mg PO HS 10/04/16 [History] Calcium Acetate [Phos-LO] 1,334 mg PO TIDWM 10/04/16 [History] Gabapentin [Neurontin] 300 mg PO BID 10/04/16 [History] Loratadine [Claritin] 10 mg PO DAILY 10/04/16 [History] Pantoprazole Sodium [Protonix] 40 mg PO DAILY 10/04/16 [History] Paroxetine [Paxil] 20 mg PO QAM 10/04/16 [History] Ranitidine HCl [Heartburn Relief] 150 mg PO DAILY 10/04/16 [History] Tamsulosin [Flomax] 0.4 mg PO DAILY 10/04/16 [History] Aspirin 81 mg PO DAILY #30 tab.chew 10/24/16 [Rx] Metoprolol [Lopressor] 50 mg PO BID #60 tablet 10/24/16 [Rx] Insulin ASPART [NovoLOG] 35 unit SQ BIDWM 04/25/17 [History] OxyCODONE Immed Rel [Roxicodone 5 MG] 10 mg PO Q6HR PRN 04/26/17 [History] Clopidogrel [Plavix] 75 mg PO DAILY #30 tablet 04/28/17 [Rx] Furosemide [Lasix] 60 mg PO BID 05/23/17 [History] Isosorbide MONOnitrate (24 HR) [Imdur] 30 mg PO DAILY 05/23/17 [History] Nitroglycerin [Nitrostat] 0.4 mg SL Q5M PRN 05/23/17 [History] amLODIPine [Norvasc] 5 mg PO DAILY 05/23/17 [History] Allergies codeine Allergy (Unknown, Verified 10/04/16 16:06) Hives Methadone Allergy (Unknown, Verified 10/04/16 16:06) Rash Penicillins [PCN] Allergy (Unknown, Verified 10/04/16 16:06) Rash promethazine [From Phenergan] Allergy (Unknown, Verified 10/04/16 16:06) Hives trazodone Allergy (Unknown, Verified 10/04/16 16:06) Itching All Systems PM: A 10-system review of systems was performed and is negative for pertinent findings except as documented above in the HPI. - Constitutional Vitals: Temp Pulse Resp BP Pulse Ox 97.6 F 70 15 145/60 98 05/23/17 20:39 05/23/17 20:39 05/23/17 20:39 05/23/17 20:39 05/23/17 20:39 GENERAL: Adult male, sitting up at the edge of his bed, Alert, not in acute distress, HEENT: NC/AT, EOMI, PERRLA, anicteric sclera, normal conjunctiva, supple, clear nares, moist mucous membranes, clear oropharynx, central uvula RESP: Lungs are clear to auscultation bilaterally, good AE bilaterally, No crackles or wheeze CARDIO: Normal hearts sounds; S1 and 2, RRR with no murmurs, no JVD, no ankle edema GI: Soft, full, no tenderness, no organomegaly felt, normal bowel sounds heard MUSCULOSKELETAL: grossly normal movements bilaterally, left great toe missing, LAVF with thrill and bruit NEUROLOGIC: CN 2-12 intact grossly. No motor/sensory deficit appreciated, PSYCHIATRY: AAO x 3. Mood is fair, SKIN: desquamated skin on lower extremities bilaterally, surgical scars noted on the LUE Internal Med - H&P Results - EKG Data -: EKG Interpreted by Myself - Diagnostic Studies Chest x-ray Additional comments: reviewed imaging reports as well as labs from transferring hospital
[2017-05-23] MEDS ORDERED: *HR* Dextrose 50 % in Water (Syg) 50 ML SYRINGE IVP PRN (22:40)
[2017-05-23] MEDS ORDERED: D5% in Water 1,000 ML IVC PRN (22:40)
[2017-05-23] MEDS ORDERED: Dextrose Gel 15 GM PO PRN ×2 (22:40)
[2017-05-23] MEDS: Insulin LISPRO 300 UNITS/3 ML VIAL SQ SCH ×2 (23:21)
[2017-05-23] MEDS: *HR* OxyCODONE Immed Rel 5 MG TABLET PO PRN (23:51)
[2017-05-23] MEDS: Gabapentin 300 MG CAPSULE PO SCH (23:51)
[2017-05-23] MEDS: *HR* Heparin 5,000 UNIT/ML VIAL SQ SCH (23:51)
[2017-05-24] MEDS: *HR* LORazepam 0.5 MG TABLET PO PRN ×2 (00:01→12:42)
[2017-05-24] MEDS: *HR* Heparin 5,000 UNIT/ML VIAL SQ SCH ×3 (05:38→21:24)
[2017-05-24 07:01] LABS: Calcium 8.5 mg/dL (8.6-10.8); Magnesium 1.7 mg/dL (1.6-2.6); Phosphorous 5.4 mg/dL (2.3-4.7)
[2017-05-24 07:03] LABS: Hemoglobin A1C 9.6 %
[2017-05-24 08:10] LABS: Basophils % 0.4 %; Hemoglobin 7.6 g/dL (12.9-16.9); Immature Granulocytes % 0.4 % (0-4)
[2017-05-24 08:12] LABS: Eosinophils % 1.6 %; Hematocrit 23.5 % (37.5-50.1); Immature Platelets 4.1 % (1.1-6.1); Lymphocytes # 0.9 K/mcL (0.6-4.6); Lymphocytes % 37.2 %; Mean Corpuscular HGB Conc 32.3 g/dL (31.6-35.5); Mean Corpuscular Hemoglobin 30.9 pg (28.0-33.3); Mean Corpuscular Volume 95.5 fL (83.0-100.0); Mean Platelet Volume 11.1 fL (9.4-12.4); Monocytes # 0.3 K/mcL (0.0-1.3); Monocytes % 10.9 %; Neutrophils # 1.2 K/mcL (1.6-8.9); Red Blood Count 2.46 M/mcL (4.19-5.50); Red Cell Distribution Width 15.6 % (11.5-14.5); Segmented Neutrophils % 49.5 %
--- NOTE | 2017-05-24 08:17 | Nephrology Consult Note ---
Date of Encounter: 05/24/17 Time of Encounter: 08:15 Assessment and Plan (1) ESRD (end stage renal disease) on dialysis Current Visit: Yes Status: Chronic The patient will undergo dialysis today since he missed yesterday. He will not require much in the way of volume removal. He is currently on amlodipine. Blood pressure stable at 134/72. We will monitor his blood pressure closely. (2) Weakness Current Visit: Yes Status: Acute (3) Hypotension Current Visit: Yes Status: Acute Qualifiers: Hypotension type: unspecified hypotension type Qualified Code(s): I95.9 - Hypotension, unspecified History of Present Illness - History of Present Illness This is a 62-year-old male with end-stage renal disease related to diabetic nephropathy. Patient receives dialysis every Friday in [place]. Patient was admitted to the hospital with several days of weakness and lightheadedness. He has had issues with low blood pressure and dialysis and his beta sam has been reduced in dosage. Patient also complains of some diffuse pain as well as some chest pain. Patient was recently admitted to the hospital for chest pain and seen by cardiology at that time. Patient has have a history of coronary disease and is status post CABG. Patient did not receive his dialysis yesterday because he was feeling poorly. Past Med Surg Social Fam HX - Past Medical History Medical history: coronary artery disease, diabetes, GERD, hyperlipidemia, hypertension, renal disease (ESRD on HD) Psychiatric history: anxiety, depression - Past Surgical History Surgical History: angioplasty/stent, coronary bypass (CABG) (2v CABG in 1998, redo 3v CABG in 2002), orthopedic, other (Surgery on right knee x4, scope on left knee x1), other (Amputation of left great toe, re-attachment of right hand after accident at work) - Social History Smoking Status: Never smoker Smokeless Tobacco Status: No Alcohol use: none Drug use: none - Family History Father Family Member Ethnicity: Non- Hx Family Cardiac Disorders: Yes (HD) Brother Family Member Ethnicity: Non- Living Status: Still Living Hx Family Cardiac Disorders: Yes ([place]) Sister Family Member Ethnicity: Non- Living Status: Still Living Hx Family Endocrine Disorder: Yes (DM) Mother History Unknown: Yes Adopted: [place]: Jessica Cotton Age: 82 Family Member Ethnicity: Non- Living Status: Still Living Hx Family Cardiac Disorders: Yes (Heart Disease) Hx Family Respiratory Disorders: Yes Hx Family Cancer: Yes (Melanoma) Hx Family GI Disorders: No Hx Family Genitourinary Disorders: No Hx Family Endocrine Disorder: Yes (Diabetes) Hx Family Musculoskeletal Disorders: No Hx Family Neuromuscular Disorders: No Hx Family Neurologic Disorders: No Hx Family HEENT Disorders: No Hx Family Autoimmune Disorders: No Medications and Allergies Atorvastatin Calcium [Lipitor] 20 mg PO HS 10/04/16 [History] Calcium Acetate [Phos-LO] 1,334 mg PO TIDWM 10/04/16 [History] Gabapentin [Neurontin] 300 mg PO BID 10/04/16 [History] Loratadine [Claritin] 10 mg PO DAILY 10/04/16 [History] Pantoprazole Sodium [Protonix] 40 mg PO DAILY 10/04/16 [History] Paroxetine [Paxil] 20 mg PO QAM 10/04/16 [History] Ranitidine HCl [Heartburn Relief] 150 mg PO DAILY 10/04/16 [History] Tamsulosin [Flomax] 0.4 mg PO DAILY 10/04/16 [History] Aspirin 81 mg PO DAILY #30 tab.chew 10/24/16 [Rx] Metoprolol [Lopressor] 50 mg PO BID #60 tablet 10/24/16 [Rx] Insulin ASPART [NovoLOG] 35 unit SQ BIDWM 04/25/17 [History] OxyCODONE Immed Rel [Roxicodone 5 MG] 10 mg PO Q6HR PRN 04/26/17 [History] Clopidogrel [Plavix] 75 mg PO DAILY #30 tablet 04/28/17 [Rx] Furosemide [Lasix] 60 mg PO BID 05/23/17 [History] Isosorbide MONOnitrate (24 HR) [Imdur] 30 mg PO DAILY 05/23/17 [History] Nitroglycerin [Nitrostat] 0.4 mg SL Q5M PRN 05/23/17 [History] amLODIPine [Norvasc] 5 mg PO DAILY 05/23/17 [History] Allergies codeine Allergy (Unknown, Verified 10/04/16 16:06) Hives Methadone Allergy (Unknown, Verified 10/04/16 16:06) Rash Penicillins [PCN] Allergy (Unknown, Verified 10/04/16 16:06) Rash promethazine [From Phenergan] Allergy (Unknown, Verified 10/04/16 16:06) Hives trazodone Allergy (Unknown, Verified 10/04/16 16:06) Itching Review of Systems Constitutional: as per HPI, weakness Eyes: bilateral: blurred vision (patient denies), diplopia (patient denies) Nose, mouth and throat: no dizziness, no headache(s) Cardiovascular: as per HPI, chest pain, chest pain at rest, dyspnea on exertion Respiratory: dyspnea on exertion Gastrointestinal: no abdominal pain, no change in bowel habits Musculoskeletal: as per HPI, back pain Integumentary: no hirsutism, no striae Neurological: as per HPI, weakness Psychiatric: no depression, no difficulty concentrating Endocrine: as per HPI Exam - Vital Signs Vital signs: Initial Vital Signs Temp Pulse Resp BP Pulse Ox 97.6 F 70 15 145/60 98 05/23/17 20:39 05/23/17 20:39 05/23/17 20:39 05/23/17 20:39 05/23/17 20:39 Vital Signs - Last 8 Hours Temp Pulse Resp BP Pulse Ox 05/24/17 07:11 98.1 F 71 16 134/72 94 05/24/17 04:08 97.7 F 72 15 124/64 95 Intake and Output 05/23/17 05/24/17 05/24/17 23:59 07:59 15:59 Intake Total 0 / 0 Balance 0 / 0 Intake: Oral 0 / 0 Other: Weight 100.516 kg 105.715 kg Blood Glucose* 150 206 Patient Weight 05/24/17 23:59 Weight 105.715 kg - General Appearance Exam: The patient is somnolent. He awakens to verbal stimuli he will answer a few questions and then drifts back off to sleep. Blood pressures 134/72. He is afebrile. He does appear to be oriented. Lungs diminished breath sounds otherwise clear. Heart regular rate and rhythm with a 2/6 soft ejection murmur. Abdomen shows a mobile sounds or bruits masses or megaly or tenderness. There is no lower extremity swelling. There is a functioning AV fistula in the left arm. Results - Lab Results 05/24/17 06:40 Most recent lab results Calcium 8.5 mg/dL (8.6-10.8) L 07/08/17 06:40 Phosphorus 5.4 mg/dL (2.3-4.7) H 05/24/17 06:40 Magnesium 1.7 mg/dL (1.6-2.6) 05/24/17 06:40 Consult Discharge Plan - Plan [facility]errals: [facility],PCP [Primary Care Provider] -
[2017-05-24] MEDS ORDERED: 0.9 % Sodium Chloride 250 ML IVC PRN (08:19)
[2017-05-24 08:23] LABS: Platelet Count 80 K/mcL (140-400)
--- NOTE | 2017-05-24 08:25 | Internal Med Progress Note ---
<Sarah Graves - Last Filed: 05/24/17 17:03> Date of Encounter: 05/24/17 Time of Encounter: 08:22 - Assessment and plan (1) Physical deconditioning Current Visit: Yes Status: Acute Assessment and plan: Patient presents with weakness and lethargy. PT and OT consult has been ordered. (2) Type 2 diabetes mellitus with diabetic chronic kidney disease Current Visit: Yes Status: Chronic Assessment and plan: Blood glucose is 203 and hemoglobin A1C is 9.6. October 2016 it was 7.9. We will continue his home medications, diabetic diet has been ordered. We will continue to monitor. Qualifiers: Diabetes mellitus fci insulin use: with terminal superintendent use Chronic kidney disease stage: on chronic dialysis Qualified Code(s): E11.22 - Type 2 diabetes mellitus with diabetic chronic kidney disease; N18.6 - End stage renal disease; Z79.4 - alf (current) use of insulin; Z99.2 - Dependence on renal dialysis (3) ESRD (end stage renal disease) on dialysis Current Visit: Yes Status: Chronic Assessment and plan: Nephrology was consulted and had patient complete hemodialysis today, since he did not have it yesterday. He normally gets hemodialysis Friday. Electrolytes are normal but will continue to monitor. (4) Hypertension Current Visit: Yes Status: Chronic Assessment and plan: Hypertension is at goal for this patient. We will continue to monitor. Qualifiers: Hypertension type: essential hypertension Qualified Code(s): I10 - Essential (primary) hypertension (5) Pancytopenia Current Visit: Yes Status: Acute Assessment and plan: Patient is currently has pancytopenia. WBC 2.5, Hgb 7.6, platelets 80. Patient chronically has pancytopenia. Chronic kidney disease may play a role. We will continue to monitor. Ferrous sulfate supplements have been ordered. There is no sign of active bleeding. Patient denies melena, hematemesis. - Subjective Interval history: Patient is laying in bed lethargic but answering questions appropriately. He states that he currently has fatigue and weakness. He denies chest pain, shortness of breath, cough. He will be getting hemodialysis today. - Constitutional Vitals: Temp Pulse Resp BP Pulse Ox 98.1 F 71 16 134/72 94 05/24/17 07:11 05/24/17 07:11 05/24/17 07:11 05/24/17 07:11 05/24/17 07:11 General appearance: Present: A&O X 3, pleasant, answers questions appropriately - Head Head exam: Present: atraumatic, normal inspection - Eye Eye exam: Present: EOMI, conjuntiva pink. Absent: periorbital swelling, scleral icterus - Respiratory Respiratory exam: Present: rales. Absent: accessory muscle use, decreased breath sounds, wheezes Additional comments: RALES at the base of lungs bilaterally - Cardiovascular Cardiovascular exam: Present: RRR, +S1, +S2. Absent: clicks, gallop - GI/Abdominal GI/Abdominal exam: Present: distended, normal bowel sounds, soft. Absent: guarding, tenderness - Extremities Exam Extremities exam: Absent: calf tenderness, pedal edema, tenderness Additional comments: No edema in lower extremities - Neurological Exam Neurological exam: Present: CN II-XII intact, oriented X3, no focal deficits. Absent: pronater drift, facial droop, speech deficit - Skin Skin exam: Present: dry, intact, petechiae (on lower extremities b/l) Internal Medicine: Result - Labs CBC & Chem 7: 05/24/17 07:57 05/24/17 06:40 Labs: BMP 05/24/17 06:40 Sodium 137 Potassium 4.0 Chloride 103 Carbon Dioxide 25 BUN 45 H Creatinine 6.11 H Glucose 203 H Calcium 8.5 L Consult Discharge Plan - Plan [facility]: [facility] Care Provider[facility] - <Mervin Schmidt - Last Filed: 05/24/17 18:28> Date of Encounter: 05/24/17 - Constitutional Vitals: Temp Pulse Resp BP Pulse Ox 98 F 79 14 134/71 95 05/24/17 15:36 05/24/17 15:36 05/24/17 15:36 05/24/17 15:36 05/24/17 15:36 Internal Medicine: Result - Labs CBC & Chem 7: 05/24/17 07:57 05/24/17 06:40 Labs: Short CBC 05/24/17 Range/Units 07:57 WBC 2.5 L (4.3-11.1) K/mcL Hgb 7.6 L (12.9-16.9) g/dL Hct 23.5 L (37.5-50.1) % Plt Count 80 L (140-400) K/mcL Neutrophils # 1.2 L (1.6-8.9) K/mcL BMP 05/24/17 06:40 Sodium 137 Potassium 4.0 Chloride 103 Carbon Dioxide 25 BUN 45 H Creatinine 6.11 H Glucose 203 H Calcium 8.5 L Cardiac Enzymes 05/24/17 Range/Units 07:57 Troponin I 0.10 H* (0-0.03) ng/mL - Attending Attestation I examined this patient and my medical decision-making was reviewed with the Resident Physician, Dr Graves. I agree with the documented findings, disposition and treatment plan as described except to the extent set forth below. patient presented to the hospital for evaluation of generalized weakness. On exam he appears sedated but in no Acute distress. Heart reveals regular S1 and S2 with no murmur. Lungs are clear. Abdomen is obese and soft. skin reveals small nonblanching macular rash on lower extremities, abdomen and hands. Plan: I will add a basic autoimmune workup to rule out vasculitisgiven weakness, pancytopenia and rash. ESR and CRP are elevated with no clear sign of infection.
[2017-05-24] MEDS: Aspirin 81 MG TAB.CHEW PO SCH (08:58)
[2017-05-24] MEDS: Gabapentin 300 MG CAPSULE PO SCH ×2 (08:58→21:24)
[2017-05-24] MEDS ORDERED: 0.9 % Sodium Chloride 2,000 ML ONE (08:58)
[2017-05-24] MEDS: Calcium Acetate 667 MG CAPSULE PO SCH ×3 (08:58→16:39)
[2017-05-24] MEDS: Insulin LISPRO 300 UNITS/3 ML VIAL SQ SCH ×4 (08:58→21:24)
[2017-05-24 09:05] LABS: Thyroid Stimulating Hormone 2.481 mcIU/mL (0.350-4.840)
[2017-05-24] MEDS: *HR* OxyCODONE Immed Rel 5 MG TABLET PO PRN ×2 (09:12→18:36)
[2017-05-24 10:33] LABS: Hepatitis B Surface Antigen Nonreactive (Nonreactive)
[2017-05-24] MEDS: amLODIPine 5 MG TABLET PO SCH (16:40)
[2017-05-24 19:19] LABS: Albumin 3.2 g/dL (3.5-5.0); Albumin/Globulin Ratio 0.8 (1.1-2.2); Bilirubin,Total 0.5 mg/dL (0.2-1.2); Calcium 8.8 mg/dL (8.6-10.8); Globulin 3.9 g/dL (2.4-3.5); Potassium 4.3 mEq/L (3.5-4.5); Total Protein 7.1 g/dL (6.0-8.3)
[2017-05-25] MEDS: *HR* OxyCODONE Immed Rel 5 MG TABLET PO PRN ×4 (00:55→22:03)
[2017-05-25] MEDS: *HR* LORazepam 0.5 MG TABLET PO PRN ×2 (00:58→15:18)
[2017-05-25 03:54] LABS: Immature Granulocytes % 0.4 % (0-4)
[2017-05-25 03:55] LABS: Eosinophils % 1.2 %; Hematocrit 21.9 % (37.5-50.1); Hemoglobin 7.2 g/dL (12.9-16.9); Immature Platelets 5.5 % (1.1-6.1); Lymphocytes # 0.8 K/mcL (0.6-4.6); Lymphocytes % 32.4 %; Mean Corpuscular HGB Conc 32.9 g/dL (31.6-35.5); Mean Corpuscular Hemoglobin 31.2 pg (28.0-33.3); Mean Corpuscular Volume 94.8 fL (83.0-100.0); Mean Platelet Volume 11.9 fL (9.4-12.4); Monocytes # 0.3 K/mcL (0.0-1.3); Monocytes % 11.5 %; Neutrophils # 1.3 K/mcL (1.6-8.9); Red Blood Count 2.31 M/mcL (4.19-5.50); Red Cell Distribution Width 15.1 % (11.5-14.5); Segmented Neutrophils % 54.5 %
[2017-05-25 04:02] LABS: Platelet Count 82 K/mcL (140-400)
[2017-05-25] MEDS: *HR* Heparin 5,000 UNIT/ML VIAL SQ SCH ×3 (06:50→22:04)
[2017-05-25] MEDS: amLODIPine 5 MG TABLET PO SCH (08:13)
[2017-05-25] MEDS: Calcium Acetate 667 MG CAPSULE PO SCH ×3 (08:13→18:06)
[2017-05-25] MEDS: Aspirin 81 MG TAB.CHEW PO SCH (08:13)
[2017-05-25] MEDS: Gabapentin 300 MG CAPSULE PO SCH ×2 (08:13→22:03)
[2017-05-25] MEDS: Insulin LISPRO 300 UNITS/3 ML VIAL SQ SCH ×4 (08:26→20:18)
[2017-05-25 09:00] LABS: Calcium 8.7 mg/dL (8.6-10.8); Magnesium 1.6 mg/dL (1.6-2.6); Potassium 4.6 mEq/L (3.5-4.5)
--- NOTE | 2017-05-25 19:50 | Internal Med Progress Note ---
Date of Encounter: 05/25/17 Time of Encounter: 11:00 - Assessment and plan (1) Type 2 diabetes mellitus with diabetic chronic kidney disease Current Visit: Yes Status: Chronic Assessment and plan: Blood glucose is 203 and hemoglobin A1C is 9.6. October 2016 it was 7.9. We will continue his home medications, diabetic diet has been ordered. We will continue to monitor. Qualifiers: Diabetes mellitus tank terminal gauger insulin use: with mcfp use Chronic kidney disease stage: on chronic dialysis Qualified Code(s): E11.22 - Type 2 diabetes mellitus with diabetic chronic kidney disease; N18.6 - End stage renal disease; Z79.4 - terminal make up operator (current) use of insulin; Z99.2 - Dependence on renal dialysis (2) ESRD (end stage renal disease) on dialysis Current Visit: Yes Status: Chronic Assessment and plan: hhemodialysis per nephrology Friday. (3) Pre-syncope Current Visit: No Status: Acute Assessment and plan: Orthostatics are negative. I will hold amlodipine since his blood pressure is well ontrolled. (4) Hypotension of hemodialysis Current Visit: No Status: Resolved Assessment and plan: consider midodrine. (5) Physical deconditioning Current Visit: Yes Status: Acute Assessment and plan: Patient presents with weakness and lethargy. PT and OT consult has been ordered. (6) Pancytopenia Current Visit: Yes Status: Acute Assessment and plan: Patient is currently has pancytopenia. WBC 2.5, Hgb 7.6, platelets 80. Patient chronically has pancytopenia. Chronic kidney disease may play a role. We will continue to monitor. Ferrous sulfate supplements have been ordered. There is no sign of active bleeding. Patient denies melena, hematemesis. - Subjective Interval history: patient reports lightheadedness upon standingunchanged from yesterday. No chest pain or syncope. - Constitutional Vitals: Temp Pulse Resp BP Pulse Ox 97.3 F L 90 18 125/63 96 05/25/17 15:46 05/25/17 15:46 05/25/17 15:46 05/25/17 15:52 05/25/17 15:46 General appearance: Present: A&O X 3, pleasant, answers questions appropriately - Eye Eye exam: Present: PERRL, conjuntiva pink, sclera anicteric Pupils: Present: PERRL - Respiratory Respiratory exam: Present: CTAB. Absent: accessory muscle use, rales, rhonchi, wheezes - Cardiovascular Cardiovascular exam: Present: RRR, +S1, +S2. Absent: diastolic murmur, gallop, rubs, systolic murmur - GI/Abdominal GI/Abdominal exam: Present: normal bowel sounds, soft, no peritoneal signs. Absent: distended, tenderness - Extremities Exam Extremities exam: Present: warm, radial pulses palpable and symetrical. Absent : calf tenderness, cyanotic, pedal edema - Skin Skin exam: Present: dry, intact Additional comments: petechial rash on lower extremities im Improved from yesterday. Internal Medicine: Result - Labs CBC & Chem 7: 05/25/17 03:08 05/25/17 08:15 Labs: Short CBC 05/25/17 Range/Units 03:08 WBC 2.4 L (4.3-11.1) K/mcL Hgb 7.2 L (12.9-16.9) g/dL Hct 21.9 L (37.5-50.1) % Plt Count 82 L (140-400) K/mcL Neutrophils # 1.3 L (1.6-8.9) K/mcL BMP 05/25/17 08:15 Sodium 135 L Potassium 4.6 H Chloride 99 Carbon Dioxide 28 BUN 30 H Creatinine 4.38 H Glucose 296 H Calcium 8.7 - Impressions Impressions Brain MRI 05/25/17 13:52 IMPRESSION: Suspected small focus of chronic ischemia within the right frontal lobe deep white matter. Mild atrophy. No evidence of acute intracranial abnormality. D/ /25/2017 14:58:52 Avila Hinton MD / earnold Interpreting Provider: Avila Hinton MD Consult Discharge Plan - Plan [facility]errals: [facility] [Primary Care Provider] -
[2017-05-25 21:13] LABS: Basophils % 0.4 %; Eosinophils % 1.4 %; Hemoglobin 7.4 g/dL (12.9-16.9); Mean Platelet Volume 11.5 fL (9.4-12.4); Segmented Neutrophils % 62.6 %
[2017-05-25 21:15] LABS: Immature Granulocytes % 0.4 % (0-4); Immature Platelets 4.6 % (1.1-6.1); Lymphocytes # 0.8 K/mcL (0.6-4.6); Mean Corpuscular HGB Conc 33.6 g/dL (31.6-35.5); Mean Corpuscular Hemoglobin 31.8 pg (28.0-33.3); Mean Corpuscular Volume 94.4 fL (83.0-100.0); Monocytes # 0.2 K/mcL (0.0-1.3); Monocytes % 8.2 %; Neutrophils # 1.8 K/mcL (1.6-8.9); Red Blood Count 2.33 M/mcL (4.19-5.50); Red Cell Distribution Width 15.3 % (11.5-14.5)
[2017-05-25 21:28] LABS: Magnesium 1.8 mg/dL (1.6-2.6); Potassium 4.5 mEq/L (3.5-4.5)
[2017-05-25 21:32] LABS: Platelet Count 84 K/mcL (140-400)
[2017-05-25 21:50] LABS: Platelet Estimate Decreased (Normal)
[2017-05-25 21:51] LABS: Anisocytosis 1+ (Not Present)
[2017-05-25] MEDS ORDERED: Magnesium Oxide 400 MG TABLET PO ONE (22:00)
[2017-05-26] MEDS: *HR* LORazepam 0.5 MG TABLET PO PRN ×2 (00:07→12:04)
[2017-05-26 03:38] LABS: Hemoglobin 7.4 g/dL (12.9-16.9); Lymphocytes % 20.2 %
[2017-05-26 03:40] LABS: Basophils % 0.3 %; Eosinophils % 0.6 %; Hematocrit 22.4 % (37.5-50.1); Immature Granulocytes % 0.6 % (0-4); Lymphocytes # 0.7 K/mcL (0.6-4.6); Mean Corpuscular Hemoglobin 31.1 pg (28.0-33.3); Mean Corpuscular Volume 94.1 fL (83.0-100.0); Mean Platelet Volume 11.7 fL (9.4-12.4); Monocytes # 0.3 K/mcL (0.0-1.3); Monocytes % 9.8 %; Neutrophils # 2.3 K/mcL (1.6-8.9); Red Blood Count 2.38 M/mcL (4.19-5.50); Red Cell Distribution Width 15.2 % (11.5-14.5); Segmented Neutrophils % 68.5 %
[2017-05-26 03:44] LABS: Platelet Count 81 K/mcL (140-400)
[2017-05-26 03:52] LABS: Albumin 3.4 g/dL (3.5-5.0); Bilirubin,Total 0.6 mg/dL (0.2-1.2); Calcium 9.1 mg/dL (8.6-10.8); Globulin 3.5 g/dL (2.4-3.5); Total Protein 6.9 g/dL (6.0-8.3)
[2017-05-26 04:15] LABS: Platelet Estimate Decreased (Normal)
[2017-05-26] MEDS: *HR* OxyCODONE Immed Rel 5 MG TABLET PO PRN ×3 (06:03→21:26)
[2017-05-26] MEDS: *HR* Heparin 5,000 UNIT/ML VIAL SQ SCH ×3 (06:05→21:25)
[2017-05-26] MEDS ORDERED: Lactulose Oral Soln 20 GM/30 ML UDC PO PRN (06:30)
[2017-05-26] MEDS: Calcium Acetate 667 MG CAPSULE PO SCH ×3 (08:37→18:00)
[2017-05-26] MEDS: Gabapentin 300 MG CAPSULE PO SCH ×2 (08:38→20:39)
[2017-05-26] MEDS: Aspirin 81 MG TAB.CHEW PO SCH (08:38)
[2017-05-26] MEDS: Insulin LISPRO 300 UNITS/3 ML VIAL SQ SCH ×5 (08:42→21:25)
--- NOTE | 2017-05-26 08:42 | Nephrology Progress Note ---
Date of Encounter: 05/26/17 Time of Encounter: 08:40 - Assessment and Plan (1) ESRD (end stage renal disease) on dialysis Current Visit: Yes Status: Chronic Patient will undergo dialysis today. I am going to transfuse him 2 units of packed red blood cells on dialysis to see if this helps some of his symptoms. I would recommend hematology evaluation for what appears to be pancytopenia. (2) Weakness Current Visit: Yes Status: Acute (3) Hypotension Current Visit: Yes Status: Acute Qualifiers: Hypotension type: unspecified hypotension type Qualified Code(s): I95.9 - Hypotension, unspecified Subjective Interval history: Patient reports she was sitting on the edge of the bed last night and apparently passed out and found himself lying on the floor. He continues to complain of generalized weakness and lightheadedness. Hemoglobin is 7.4. Hemoglobin as an outpatient was 9.1. His Aranesp was increased but his subsequent hemoglobin decreased to 8.3. Patient denies any melena or hematochezia. Objective - Vital Signs Vital signs: Vital Signs Temp Pulse Resp BP BP BP Pulse Ox 05/26/17 07:24 98.7 F 103 24 118/76 92 05/26/17 04:38 98.1 F 100 18 105/64 92 05/25/17 23:54 98.6 F 95 18 122/72 92 05/25/17 22:00 98 127/71 05/25/17 20:13 98.4 F 96 20 118/76 90 05/25/17 15:52 125/63 124/68 05/25/17 15:46 97.3 F L 90 18 125/63 96 Intake and Output 05/25/17 05/26/17 05/26/17 23:59 07:59 15:59 Intake Total 1040 / 1040 Balance 1040 / 1040 Intake: Oral 1040 / 1040 Other: Meal Dinner Percent of Meal Consumed 100% # Voids 3 Weight 103.4 kg Blood Glucose* 349 334 Patient Weight 05/26/17 23:59 Weight 103.4 kg - General Appearance Exam: Patient is alert and oriented. He is in no acute distress. Lungs clear to auscultation. Heart regular rate and rhythm. Abdomen is benign. There is no peripheral edema. There is a left arm AV fistula. - Lab 05/26/17 03:02 05/26/17 03:02 Most recent lab results Calcium 9.1 mg/dL (8.6-10.8) 05/26/17 03:02 Phosphorus 5.4 mg/dL (2.3-4.7) H 05/24/17 06:40 Magnesium 1.8 mg/dL (1.6-2.6) 05/25/17 21:03 Consult Discharge Plan - Plan [facility]errals: [facility] [Primary Care Provider] -
[2017-05-26] MEDS ORDERED: 0.9 % Sodium Chloride 250 ML IVC PRN (08:43)
[2017-05-26 09:28] LABS: % Iron Saturation 12 % (20-55); Iron 32 mcg/dL (65-175); Transferrin 193 mg/dL (174-364)
[2017-05-26 09:37] LABS: Hepatitis B Surface Antibody 0.35 mIU/mL
[2017-05-26 09:49] LABS: Ferritin 694 ng/ml (22-275)
[2017-05-26 12:25] LABS: Folate 4.9 ng/mL (7.0-31.4)
--- NOTE | 2017-05-26 14:10 | Oncology Inp Consult Note ---
Date of Encounter: 05/26/17 Time of Encounter: 12:00 Assessment and Plan (1) Anemia Status: Acute Assessment and plan: Patient with low-dose iron saturation, ferritin around 600, status post Aranesp dosed by nephrology, patient reports having had a GI workup endoscopy colonoscopy outside facility these reports are not available. Review her results consider repeat testing. Folic acid supplements added, pancytopenia/anemia probably multifactorial. Patient reports having had a bone marrow procedure completed last year at outside facility? [facility],? [facility] and reports not scanned into the system. If patient has not had one outside recommend a bone marrow aspiration and biopsy during this hospitalization. Lethargy-likely related to anemia-r/o ac process like infection. Ct Po iron. He is likely to receive PRBC tomorrow with dialysis. Plan d/w patient, will review above results from outside Qualifiers: Anemia type: iron deficiency Iron deficiency anemia type: unspecified iron deficiency Qualified Code(s): D50.9 - Iron deficiency anemia, unspecified - Data of Consult Requesting Physician: Mervin Schmidt MD Primary Care Provider: PCP [place] - Consult Narrative Reason for consult: Anemia History of present illness: Mr. Velarde is a 62 year old male with medical history significant for coronary artery disease, history of CHF, end-stage renal disease on hemodialysis, chronic anemia, per nephrology on Aranesp dosing has been changed still patient was hospitalized with generalized weakness fatigue and a low hemoglobin. He is scheduled to have transfusion with the dialysis for hemoglobin today of 7.4. Patient denies any melena or hematochezia. He denies any abdominal pain discomfort. Lab work showed your folate levels on folic acid supplements. Ferritin was in 600s. Patient reports having had a colonoscopy and upper GI endoscopy late last year reports not in our system. He also reports having had a bone marrow procedure last year, reports not in the system. He denies any chest pain lower extremity discomfort or neuropathy symptoms. Past Med Surg Social Fam HX - Past Medical History Medical history: coronary artery disease, diabetes, GERD, hyperlipidemia, hypertension, renal disease (ESRD on HD) Psychiatric history: anxiety, depression - Past Surgical History Surgical History: angioplasty/stent, coronary bypass (CABG) (2v CABG in 1998, redo 3v CABG in 2002), orthopedic, other (Surgery on right knee x4, scope on left knee x1), other (Amputation of left great toe, re-attachment of right hand after accident at work) - Social History Smoking Status: Never smoker Smokeless Tobacco Status: No Alcohol use: none Drug use: none - Family History Father Family Member Ethnicity: Non- Hx Family Cardiac Disorders: Yes (HD) Brother Family Member Ethnicity: Non- Living Status: Still Living Hx Family Cardiac Disorders: Yes ([place]) Sister Family Member Ethnicity: Non- Living Status: Still Living Hx Family Endocrine Disorder: Yes (DM) Mother History Unknown: Yes Adopted: [place]: Jessica Cotton Age: 82 Family Member Ethnicity: Non- Living Status: Still Living Hx Family Cardiac Disorders: Yes (Heart Disease) Hx Family Respiratory Disorders: Yes Hx Family Cancer: Yes (Melanoma) Hx Family GI Disorders: No Hx Family Genitourinary Disorders: No Hx Family Endocrine Disorder: Yes (Diabetes) Hx Family Musculoskeletal Disorders: No Hx Family Neuromuscular Disorders: No Hx Family Neurologic Disorders: No Hx Family HEENT Disorders: No Hx Family Autoimmune Disorders: No Medications and Allergies Atorvastatin Calcium [Lipitor] 20 mg PO HS 10/04/16 [History] Calcium Acetate [Phos-LO] 1,334 mg PO TIDWM 10/04/16 [History] Gabapentin [Neurontin] 300 mg PO BID 10/04/16 [History] Loratadine [Claritin] 10 mg PO DAILY 10/04/16 [History] Pantoprazole Sodium [Protonix] 40 mg PO DAILY 10/04/16 [History] Paroxetine [Paxil] 20 mg PO QAM 10/04/16 [History] Ranitidine HCl [Heartburn Relief] 150 mg PO DAILY 10/04/16 [History] Tamsulosin [Flomax] 0.4 mg PO DAILY 10/04/16 [History] Aspirin 81 mg PO DAILY #30 tab.chew 10/24/16 [Rx] Metoprolol [Lopressor] 50 mg PO BID #60 tablet 10/24/16 [Rx] Insulin ASPART [NovoLOG] 35 unit SQ BIDWM 04/25/17 [History] OxyCODONE Immed Rel [Roxicodone 5 MG] 10 mg PO Q6HR PRN 04/26/17 [History] Clopidogrel [Plavix] 75 mg PO DAILY #30 tablet 04/28/17 [Rx] Furosemide [Lasix] 60 mg PO BID 05/23/17 [History] Isosorbide MONOnitrate (24 HR) [Imdur] 30 mg PO DAILY 05/23/17 [History] Nitroglycerin [Nitrostat] 0.4 mg SL Q5M PRN 05/23/17 [History] amLODIPine [Norvasc] 5 mg PO DAILY 05/23/17 [History] Allergies codeine Allergy (Unknown, Verified 10/04/16 16:06) Hives Methadone Allergy (Unknown, Verified 10/04/16 16:06) Rash Penicillins [PCN] Allergy (Unknown, Verified 10/04/16 16:06) Rash promethazine [From Phenergan] Allergy (Unknown, Verified 10/04/16 16:06) Hives trazodone Allergy (Unknown, Verified 10/04/16 16:06) Itching Review of systems: as in HPI Oncology - Exam - Constitutional Vitals: Temp Pulse Resp BP Pulse Ox 98.9 F 101 22 116/73 91 05/26/17 11:10 05/26/17 11:10 05/26/17 11:10 05/26/17 11:10 05/26/17 11:10 General appearance: no acute distress Exam: lethargic, in the chair-eating lunch - Head Head exam: Present: atraumatic - Eye Eye exam: Present: sclera anicteric - ENT ENT exam: Present: mucous membranes moist - Neck Neck exam: Present: normal inspection - Respiratory Respiratory exam: Present: CTAB - Cardiovascular Cardiovascular exam: Present: +S1, +S2 - GI/Abdominal GI/Abdominal exam: Present: soft Additional comments: distended, non tender - Extremities Exam Additional comments: trace edema, LUext shunt - Neurological Exam Neurological exam: Present: altered, CN II-XII intact, no focal deficits - Psychiatric Additional comments: not assessed Oncology - Results - Labs Labs: Short CBC 05/25/17 05/26/17 Range/Units 21:03 03:02 WBC 2.8 L 3.4 L (4.3-11.1) K/mcL Hgb 7.4 L 7.4 L (12.9-16.9) g/dL Hct 22.0 L 22.4 L (37.5-50.1) % Plt Count 84 L 81 L (140-400) K/mcL Neutrophils # 1.8 2.3 (1.6-8.9) K/mcL BMP 05/25/17 05/26/17 21:03 03:02 Sodium 135 L 132 L Potassium 4.5 5.0 H Chloride 99 98 Carbon Dioxide 26 24 BUN 36 H 38 H Creatinine 4.86 H 5.13 H Glucose 301 H 282 H Calcium 9.0 9.1 Cardiac Enzymes 05/25/17 05/26/17 05/26/17 Range/Units 21:03 03:02 08:42 Troponin I 0.05 H* 0.05 H* 0.05 H* (0-0.03) ng/mL Liver Function 05/26/17 Range/Units 03:02 Total Bilirubin 0.6 (0.2-1.2) mg/dL AST 12 (5-34) Units/L ALT 9 (0-55) Units/L Alkaline Phosphatase 123 (38-126) Units/L Albumin 3.4 L (3.5-5.0) g/dL Consult Discharge Plan - Plan [facility]errals: [facility] [Primary Care Provider] -
[2017-05-26] MEDS ORDERED: 0.9 % Sodium Chloride 2,000 ML ONE (17:09)
--- NOTE | 2017-05-26 17:23 | Internal Med Progress Note ---
<Sarah Graves - Last Filed: 05/26/17 18:01> Date of Encounter: 05/26/17 Time of Encounter: 13:00 - Assessment and plan (1) Physical deconditioning Current Visit: Yes Status: Acute Assessment and plan: Patient presents with weakness and lethargy. PT and OT recommend that patient be discharged to SNF to address weakness strengthen balance (2) Type 2 diabetes mellitus with diabetic chronic kidney disease Current Visit: Yes Status: Chronic Assessment and plan: Blood glucose is 282 and hemoglobin A1C is 9.6. October 2016 it was 7.9. We will continue his home medications, diabetic diet has been ordered. We will continue to monitor. Qualifiers: Diabetes mellitus terminal operator insulin use: with terminal operator use Chronic kidney disease stage: on chronic dialysis Qualified Code(s): E11.22 - Type 2 diabetes mellitus with diabetic chronic kidney disease; N18.6 - End stage renal disease; Z79.4 - FPC (current) use of insulin; Z99.2 - Dependence on renal dialysis (3) ESRD (end stage renal disease) on dialysis Current Visit: Yes Status: Chronic Assessment and plan: Hemodialysis per nephrology Friday. The patient had hemodialysis today along with 2 the packed red blood cells in his dialysis to help alleviate some of his symptoms. (4) Hypertension Current Visit: Yes Status: Chronic Assessment and plan: Hypertension is at goal for this patient. We will continue to monitor. Qualifiers: Hypertension type: essential hypertension Qualified Code(s): I10 - Essential (primary) hypertension (5) Pancytopenia Current Visit: Yes Status: Acute Assessment and plan: Patient chronically has pancytopenia. This is probably multifactorial. WBC 3.5 has increase Hgb 7.4 platelets 81 Hematology has been consulted. The patient has possibly had a bone marrow aspiration and biopsy and EGD/ colonoscopy a year ago at the [place]. We are requesting the patient's medical history from the [place] so that we can verify this procedures. We will continue to monitor. Ferrous sulfate and folate supplements have been ordered. There is no sign of active bleeding. Patient denies melena, hematemesis, hematochezia. - Subjective Interval history: Patient is laying in bed lethargic but answering questions appropriately. He states that he currently has fatigue and weakness. He denies chest pain, shortness of breath, cough. He received hemodialysis today. - Constitutional Vitals: Temp Pulse Resp BP Pulse Ox 97.7 F 87 18 119/64 91 05/26/17 16:40 05/26/17 16:40 05/26/17 16:40 05/26/17 17:00 05/26/17 11:10 General appearance: Present: A&O X 3, pleasant, answers questions appropriately - Head Head exam: Present: atraumatic, normocephalic - Eye Eye exam: Present: normal appearance, conjuntiva pink - Respiratory Respiratory exam: Present: CTAB (In the upper lobes lungs bilaterally) Additional comments: No strider, rhonchi, accessory muscle use, wheezing. - Cardiovascular Cardiovascular exam: Present: RRR, +S1, +S2 - GI/Abdominal GI/Abdominal exam: Present: normal bowel sounds, soft. Absent: guarding, tenderness - Extremities Exam Extremities exam: Absent: mottling, pedal edema, tenderness - Back Exam Back exam: Present: normal inspection. Absent: tenderness - Skin Skin exam: Present: dry, intact Internal Medicine: Result - Labs CBC & Chem 7: 05/26/17 03:02 05/26/17 03:02 Labs: Short CBC 05/25/17 05/26/17 Range/Units 21:03 03:02 WBC 2.8 L 3.4 L (4.3-11.1) K/mcL Hgb 7.4 L 7.4 L (12.9-16.9) g/dL Hct 22.0 L 22.4 L (37.5-50.1) % Plt Count 84 L 81 L (140-400) K/mcL Neutrophils # 1.8 2.3 (1.6-8.9) K/mcL BMP 05/25/17 05/26/17 21:03 03:02 Sodium 135 L 132 L Potassium 4.5 5.0 H Chloride 99 98 Carbon Dioxide 26 24 BUN 36 H 38 H Creatinine 4.86 H 5.13 H Glucose 301 H 282 H Calcium 9.0 9.1 Cardiac Enzymes 05/25/17 05/26/17 05/26/17 Range/Units 21:03 03:02 08:42 Troponin I 0.05 H* 0.05 H* 0.05 H* (0-0.03) ng/mL Liver Function 05/26/17 Range/Units 03:02 Total Bilirubin 0.6 (0.2-1.2) mg/dL AST 12 (5-34) Units/L ALT 9 (0-55) Units/L Alkaline Phosphatase 123 (38-126) Units/L Albumin 3.4 L (3.5-5.0) g/dL - Impressions Impressions Head CT 05/25/17 20:27 IMPRESSION: No acute intracranial abnormality. D/ / Raciel Ku MD / Raciel Ku MD Interpreting Provider: Raciel Ku MD Hip X-Ray 05/26/17 21:56 IMPRESSION: No acute osseous abnormality. The femur is well seated in the acetabulum. D/ / Reese Trujillo MD / Reese Trujillo MD Interpreting Provider: Reese Trujillo MD Consult Discharge Plan - Plan [facility]errals: [facility] [Primary Care Provider[facility] - <Mervin Schmdit - Last Filed: 05/26/17 19:55> Date of Encounter: 05/26/17 - Assessment and plan (1) Type 2 diabetes mellitus with diabetic chronic kidney disease Current Visit: Yes Status: Chronic Qualifiers: Diabetes mellitus senior care insulin use: with senior care use Chronic kidney disease stage: on chronic dialysis Qualified Code(s): E11.22 - Type 2 diabetes mellitus with diabetic chronic kidney disease; N18.6 - End stage renal disease; 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; Z99.2 - Dependence on renal dialysis (2) ESRD (end stage renal disease) on dialysis Current Visit: Yes Status: Chronic (3) Pre-syncope Current Visit: No Status: Acute (4) Physical deconditioning Current Visit: Yes Status: Acute (5) Pancytopenia Current Visit: Yes Status: Acute - Constitutional Vitals: Temp Pulse Resp BP Pulse Ox 97.7 F 87 18 115/49 91 05/26/17 17:30 05/26/17 16:40 05/26/17 17:30 05/26/17 17:30 05/26/17 11:10 Internal Medicine: Result - Labs CBC & Chem 7: 05/26/17 03:02 05/26/17 03:02 Labs: Short CBC 05/25/17 05/26/17 Range/Units 21:03 03:02 WBC 2.8 L 3.4 L (4.3-11.1) K/mcL Hgb 7.4 L 7.4 L (12.9-16.9) g/dL Hct 22.0 L 22.4 L (37.5-50.1) % Plt Count 84 L 81 L (140-400) K/mcL Neutrophils # 1.8 2.3 (1.6-8.9) K/mcL BMP 05/25/17 05/26/17 21:03 03:02 Sodium 135 L 132 L Potassium 4.5 5.0 H Chloride 99 98 Carbon Dioxide 26 24 BUN 36 H 38 H Creatinine 4.86 H 5.13 H Glucose 301 H 282 H Calcium 9.0 9.1 Cardiac Enzymes 05/25/17 05/26/17 05/26/17 Range/Units 21:03 03:02 08:42 Troponin I 0.05 H* 0.05 H* 0.05 H* (0-0.03) ng/mL Liver Function 05/26/17 Range/Units 03:02 Total Bilirubin 0.6 (0.2-1.2) mg/dL AST 12 (5-34) Units/L ALT 9 (0-55) Units/L Alkaline Phosphatase 123 (38-126) Units/L Albumin 3.4 L (3.5-5.0) g/dL - Impressions Impressions Head CT 05/25/17 20:27 IMPRESSION: No acute intracranial abnormality. D/ / Raciel Ku MD / Raciel Ku MD Interpreting Provider: Raciel Ku MD Hip X-Ray 05/26/17 21:56 IMPRESSION: No acute osseous abnormality. The femur is well seated in the acetabulum. D/ / Reese Trujillo MD / Reese Trujillo MD Interpreting Provider: Reese Trujillo MD - Attending Attestation I examined this patient and my medical decision-making was reviewed with the Resident Physician, Dr Graves. I agree with the documented findings, disposition and treatment plan as described except to the extent set forth below. [facility] for [facility]cytopenia. Continue with hemodialysis. On exam he appears tired, no acute distress. Heart is rrregular with S1-S2.
[2017-05-26] MEDS: Insulin DETEMIR 100 UNIT/ML X5UNITS SQ SCH (21:25)
[2017-05-27] MEDS: *HR* LORazepam 0.5 MG TABLET PO PRN ×2 (00:50→12:02)
[2017-05-27] MEDS: *HR* Heparin 5,000 UNIT/ML VIAL SQ SCH ×3 (05:06→23:19)
[2017-05-27 05:54] LABS: Albumin 3.4 g/dL (3.5-5.0); Albumin/Globulin Ratio 0.9 (1.1-2.2); Bilirubin,Total 0.9 mg/dL (0.2-1.2); Calcium 9.3 mg/dL (8.6-10.8); Globulin 3.6 g/dL (2.4-3.5)
[2017-05-27 06:00] LABS: Basophils % 0.3 %; Hematocrit 27.1 % (37.5-50.1); Red Cell Distribution Width 15.8 % (11.5-14.5)
[2017-05-27 06:02] LABS: Eosinophils # 0.1 K/mcL (0.0-0.6); Eosinophils % 1.4 %; Hemoglobin 8.9 g/dL (12.9-16.9); Immature Granulocytes % 0.3 % (0-4); Immature Platelets 6.3 % (1.1-6.1); Lymphocytes # 0.7 K/mcL (0.6-4.6); Lymphocytes % 19.8 %; Mean Corpuscular HGB Conc 32.8 g/dL (31.6-35.5); Mean Corpuscular Hemoglobin 30.3 pg (28.0-33.3); Mean Corpuscular Volume 92.2 fL (83.0-100.0); Mean Platelet Volume 11.4 fL (9.4-12.4); Monocytes # 0.3 K/mcL (0.0-1.3); Monocytes % 9.5 %; Neutrophils # 2.5 K/mcL (1.6-8.9); Red Blood Count 2.94 M/mcL (4.19-5.50); Segmented Neutrophils % 68.7 %
[2017-05-27 06:04] LABS: Platelet Count 71 K/mcL (140-400)
[2017-05-27] MEDS: Gabapentin 300 MG CAPSULE PO SCH ×2 (08:09→23:18)
[2017-05-27] MEDS: Folic Acid 1 MG TABLET PO SCH (08:09)
[2017-05-27] MEDS: Calcium Acetate 667 MG CAPSULE PO SCH ×3 (08:09→16:55)
[2017-05-27] MEDS: Aspirin 81 MG TAB.CHEW PO SCH (08:09)
[2017-05-27] MEDS: Insulin DETEMIR 100 UNIT/ML X5UNITS SQ SCH ×2 (08:10→20:18)
[2017-05-27] MEDS: Insulin LISPRO 300 UNITS/3 ML VIAL SQ SCH ×7 (08:10→20:18)
[2017-05-27] MEDS: *HR* OxyCODONE Immed Rel 5 MG TABLET PO PRN (10:59)
--- NOTE | 2017-05-27 11:12 | Internal Med Progress Note ---
<Sarah Graves - Last Filed: 05/27/17 11:54> Date of Encounter: 05/27/17 Time of Encounter: 10:00 - Assessment and plan (1) Physical deconditioning Current Visit: Yes Status: Acute Assessment and plan: Patient presents with weakness and lethargy. PT and OT recommend that patient be discharged to SNF to address weakness strengthen balance (2) Type 2 diabetes mellitus with diabetic chronic kidney disease Current Visit: Yes Status: Chronic Assessment and plan: Blood glucose is 249, improving from yesterday it was 282. We will continue his home medications, diabetic diet has been ordered. We will continue to monitor. 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 The patient will hav hemodialysis tomorrow. (4) Hypertension Current Visit: Yes Status: Chronic Assessment and plan: Hypertension is at goal for this patient. We will continue to monitor. Qualifiers: Hypertension type: essential hypertension Qualified Code(s): I10 - Essential (primary) hypertension (5) Pancytopenia Current Visit: Yes Status: Acute Assessment and plan: Patient chronically has pancytopenia. This is probably multifactorial. WBC 3.6 has increase Hgb 8.9 platelets 71 decreased Hematology has been consulted. The patient has possibly had a bone marrow aspiration and biopsy and EGD/ colonoscopy a year ago at the [place]. We are requesting the patient's medical history from the [place] so that we can verify this procedures. Respiratory infection panel, Parvovirus, and Monospot test has been ordered. Patient has has a sick contact within 2 weeks. Chest X-ray has been ordered due to RALES in right middle and lower lobes of lung. Lasix has been restarted. We will continue to monitor. Ferrous sulfate and folate supplements have been ordered. There is no sign of active bleeding. Patient denies melena, hematemesis, hematochezia. - Subjective Interval history: Patient is laying in bed comfortably answering questions appropriately. He states that he still has dizziness. He admits to shortness of breath and submandibular tenderness. He denies chest pain, cough, nausea, vomiting, abdominal pain, palpitations. He received hemodialysis yesterday. - Constitutional Vitals: Temp Pulse Resp BP Pulse Ox 98.3 F 90 16 133/76 93 05/27/17 07:52 05/27/17 07:52 05/27/17 07:52 05/27/17 07:52 05/27/17 08:26 General appearance: Present: A&O X 3, pleasant, answers questions appropriately - Head Head exam: Present: atraumatic, normocephalic - Eye Eye exam: Present: conjuntiva pink. Absent: scleral icterus - ENT ENT exam: Present: mucous membranes moist - Neck Neck exam general surgery: Present: lymphadenopathy (Submandibular lymphadenopathy and tenderness on the right side), tenderness, supple, trachea midline - Respiratory Respiratory exam: Present: CTAB (Left lung and right upper lung ), rales (Right middle and lower lobes ). Absent: chest wall tenderness, respiratory distress, wheezes - Cardiovascular Cardiovascular exam: Present: RRR, +S1, +S2. Absent: rubs - GI/Abdominal GI/Abdominal exam: Present: normal bowel sounds. Absent: guarding, tenderness - Extremities Exam Extremities exam: Absent: calf tenderness, mottling, pedal edema - Back Exam Back exam: Absent: rash noted, tenderness - Skin Skin exam: Present: dry, intact Internal Medicine: Result - Labs CBC & Chem 7: 05/27/17 05:02 05/27/17 05:02 Labs: Short CBC 05/27/17 Range/Units 05:02 WBC 3.6 L (4.3-11.1) K/mcL Hgb 8.9 L D (12.9-16.9) g/dL Hct 27.1 L (37.5-50.1) % Plt Count 71 L (140-400) K/mcL Neutrophils # 2.5 (1.6-8.9) K/mcL BMP 05/27/17 05:02 Sodium 131 L Potassium 5.0 H Chloride 98 Carbon Dioxide 24 BUN 46 H Creatinine 5.81 H Glucose 249 H Calcium 9.3 Liver Function 05/27/17 Range/Units 05:02 Total Bilirubin 0.9 (0.2-1.2) mg/dL AST 14 (5-34) Units/L ALT 9 (0-55) Units/L Alkaline Phosphatase 123 (38-126) Units/L Albumin 3.4 L (3.5-5.0) g/dL Consult Discharge Plan - Plan [facility]errals: [facility] [Primary Care Provider] - <Lucio Damon H - Last Filed: 05/27/17 12:52> Date of Encounter: 05/27/17 - Constitutional Vitals: Temp Pulse Resp BP Pulse Ox 98.2 F 90 16 134/77 98 05/27/17 11:51 05/27/17 12:08 05/27/17 12:08 05/27/17 11:51 05/27/17 12:08 Internal Medicine: Result - Labs CBC & Chem 7: 05/27/17 05:02 05/27/17 05:02 Labs: Short CBC 05/27/17 Range/Units 05:02 WBC 3.6 L (4.3-11.1) K/mcL Hgb 8.9 L D (12.9-16.9) g/dL Hct 27.1 L (37.5-50.1) % Plt Count 71 L (140-400) K/mcL Neutrophils # 2.5 (1.6-8.9) K/mcL BMP 05/27/17 05:02 Sodium 131 L Potassium 5.0 H Chloride 98 Carbon Dioxide 24 BUN 46 H Creatinine 5.81 H Glucose 249 H Calcium 9.3 Liver Function 05/27/17 Range/Units 05:02 Total Bilirubin 0.9 (0.2-1.2) mg/dL AST 14 (5-34) Units/L ALT 9 (0-55) Units/L Alkaline Phosphatase 123 (38-126) Units/L Albumin 3.4 L (3.5-5.0) g/dL - Attending Attestation pancytopenia of unclear etiology. COnsider viral infection a a cause. Parvo, EBV, etc, Send RUQ ultrasound ( cirrhosis?) Consider Plavix as a possible cause, consider discontinuing Plavix I examined this patient and my medical decision-making was reviewed with the RADIO MECHANIC/PA/Advanced Practice Nurse/Resident Physician. I agree with the documented findings, disposition and treatment plan as described except to the extent set forth below.
--- NOTE | 2017-05-27 11:38 | Nephrology Progress Note ---
Date of Encounter: 05/27/17 Time of Encounter: 11:30 - Assessment and Plan (1) ESRD (end stage renal disease) on dialysis Current Visit: Yes Status: Chronic Hgb 8.9. Onc consult appreciated. HD tomorrow, keeping MWF schedule. Subjective Interval history: Laying in bed, states feeling somewhat better following PRBC transfusiion yesterday. No new complaints. Objective - Vital Signs Vital signs: Vital Signs Temp Pulse Resp BP Pulse Ox 05/27/17 08:26 93 05/27/17 07:52 98.3 F 90 16 133/76 89 05/27/17 04:55 98.2 F 89 19 110/51 92 05/26/17 23:35 97.9 F 87 18 116/67 91 05/26/17 20:43 97.6 F 88 18 136/84 92 05/26/17 17:30 97.7 F 18 115/49 05/26/17 17:15 108/65 05/26/17 17:00 119/64 05/26/17 16:45 118/66 05/26/17 16:40 97.7 F 87 18 107/63 05/26/17 16:30 112/66 05/26/17 16:15 117/70 05/26/17 16:00 97.5 F L 87 18 112/61 05/26/17 15:45 97.7 F 87 18 104/61 05/26/17 15:40 98 F 86 18 103/63 05/26/17 15:30 94/38 05/26/17 15:20 97.4 F L 18 106/65 05/26/17 15:15 110/69 05/26/17 15:05 98.1 F 80 18 98/62 05/26/17 15:00 102/61 05/26/17 14:45 101/62 05/26/17 14:30 100/68 05/26/17 14:15 98.1 F 19 105/62 Intake and Output 05/26/17 05/27/17 05/27/17 23:59 07:59 15:59 Intake Total 590 / 590 400 / 400 Output Total 1580 / 1580 280 / 280 250 / 250 Balance -990 / -990 120 / 120 -250 / -250 Intake: Oral 240 / 240 400 / 400 Blood Product 350 / 350 Rbcs Leuko Poor As-1 350 / 350 Unit [id number] Output: Urine 280 / 280 280 / 280 250 / 250 Total Dialysis (HD) 1300 / 1300 Output Other: Meal Dinner Breakfast Percent of Meal Consumed 80% 100% Weight 103.7 kg Blood Glucose* 265 270 Hemodialysis Net Fluid 700 Removed (mL) Patient Weight 05/27/17 23:59 Weight 103.7 kg - General Appearance General appearance: Present: well-developed, well-nourished, appears started age EENT: Present: mucous membranes moist Neck: Present: no JVD Respiratory: Present: clear Cardiology: Present: edema, regular rate, regular rhythm Additional Comments: trace pitting LE Gastrointestinal: Present: hypoactive bowel sounds, no tenderness Integumentary: Present: warm and dry Neurologic: Present: alert and oriented x3 Psychiatric: Present: mood/affect appropriate, cooperative - Lab 05/27/17 05:02 05/27/17 05:02 Most recent lab results Calcium 9.3 mg/dL (8.6-10.8) 05/27/17 05:02 Phosphorus 5.4 mg/dL (2.3-4.7) H 05/24/17 06:40 Magnesium 1.8 mg/dL (1.6-2.6) 05/25/17 21:03 Consult Discharge Plan - Plan [facility]errals: [facility] [Primary Care Provider] -
--- NOTE | 2017-05-27 16:06 | Electrocardiograph Report ---
[place] [id number] Test Date: 2017-05-25 Pat Name: Orlando Velarde Department: 112 Room: 2A Gender: M Manager Of Care: : 1955 Requested By: Mervin Schmidt Order Number: [id number] Reading MD: Virgil Ruiz Measurements Intervals [place] Rate: 91 P: 11 DC: 129 QRS: 83 QRSD: 101 T: -87 QT: 358 QTc: 407 Interpretive Statements SINUS RHYTHM ST DEVIATION AND MODERATE T-WAVE ABNORMALITY, CONSIDER INFERIOR ISCHEMIA LVH Electronically Signed On 05-27-2017 16:04:49 EDT by Virgil Ruiz
[2017-05-27 23:24] LABS: Adenovirus Not Detected (Not Detect); Bordetella Pertussis Not Detected (Not Detect); Chlamydophila pneumoniae Not Detected (Not Detect); Coronavirus 229E Not Detected (Not Detect); Coronavirus HKU1 Not Detected (Not Detect); Coronavirus NL63 Not Detected (Not Detect); Coronavirus OC43 Not Detected (Not Detect); Human Metapneumovirus Not Detected (Not Detect); Human Rhinovirus/Enterovirus Not Detected (Not Detect); Influenza A Subtype 2009 H1 Not Detected (Not Detect); Influenza A Untypeable Not Detected (Not Detect); Influenza B Not Detected (Not Detect); Mycoplasma pneumoniae Not Detected (Not Detect); Parainfluenza Virus 1 Not Detected (Not Detect); Parainfluenza Virus 2 Not Detected (Not Detect); Parainfluenza Virus 3 Not Detected (Not Detect); Parainfluenza Virus 4 Not Detected (Not Detect); Respiratory Syncytial Virus Not Detected (Not Detect)
[2017-05-28 06:09] LABS: Basophils % 0.4 %; Immature Granulocytes % 0.4 % (0-4)
[2017-05-28 06:11] LABS: Eosinophils # 0.1 K/mcL (0.0-0.6); Hematocrit 25.3 % (37.5-50.1); Hemoglobin 8.3 g/dL (12.9-16.9); Immature Platelets 6.2 % (1.1-6.1); Lymphocytes # 0.6 K/mcL (0.6-4.6); Lymphocytes % 24.6 %; Mean Corpuscular HGB Conc 32.8 g/dL (31.6-35.5); Mean Corpuscular Hemoglobin 30.2 pg (28.0-33.3); Mean Platelet Volume 11.7 fL (9.4-12.4); Monocytes # 0.2 K/mcL (0.0-1.3); Monocytes % 9.4 %; Neutrophils # 1.5 K/mcL (1.6-8.9); Red Blood Count 2.75 M/mcL (4.19-5.50); Red Cell Distribution Width 15.3 % (11.5-14.5); Segmented Neutrophils % 63.2 %
[2017-05-28 06:16] LABS: Platelet Count 66 K/mcL (140-400)
[2017-05-28 06:20] LABS: Potassium 4.6 mEq/L (3.5-4.5)
[2017-05-28 07:53] LABS: CKMB Percent NOT DONE (0.0-5.0)
[2017-05-28 07:53] LABS: Complement Component 3 103 mg/dL (88-201); Complement Component 4 21 mg/dL (10-40)
[2017-05-28 07:53] LABS: CKMB Percent NOT DONE (0.0-5.0)
[2017-05-28 08:01] LABS: ANA IgG by ELISA DETECTED (None Detected)
[2017-05-28] MEDS: Folic Acid 1 MG TABLET PO SCH (08:30)
[2017-05-28] MEDS: Gabapentin 300 MG CAPSULE PO SCH ×2 (08:31→21:58)
[2017-05-28] MEDS: Aspirin 81 MG TAB.CHEW PO SCH (08:31)
[2017-05-28] MEDS: Calcium Acetate 667 MG CAPSULE PO SCH ×3 (08:32→17:15)
[2017-05-28] MEDS: Insulin DETEMIR 100 UNIT/ML X5UNITS SQ SCH ×2 (08:34→22:04)
[2017-05-28] MEDS: Insulin LISPRO 300 UNITS/3 ML VIAL SQ SCH ×7 (08:35→22:01)
[2017-05-28] MEDS: *HR* Heparin 5,000 UNIT/ML VIAL SQ SCH ×3 (08:36→22:04)
[2017-05-28] MEDS ORDERED: Ferumoxytol 510 MG in 0.9 % Sodium Chloride 100 ML IVPB ONE (08:42)
--- NOTE | 2017-05-28 08:42 | Nephrology Progress Note ---
Date of Encounter: 05/28/17 Time of Encounter: 08:39 - Assessment and Plan (1) ESRD (end stage renal disease) on dialysis Current Visit: Yes Status: Chronic The patient will undergo dialysis today. Iron saturation is 12% so he will receive some parenteral iron. Folic acid is low so he will receive supplements. His overall clinical picture raises the issue that possibly the patient is overmedicated. He is on oxycodone and Lyrica and lorazepam. I would favor reducing the doses of some of these medications if possible. This may lead to some improvement in the patient's overall complaints of weakness and lightheadedness. (2) Weakness Current Visit: Yes Status: Acute (3) Hypotension Current Visit: Yes Status: Acute Qualifiers: Hypotension type: unspecified hypotension type Qualified Code(s): I95.9 - Hypotension, unspecified Subjective Interval history: The patient continues to complain of generalized weakness and lightheadedness. Oncology consultation has been reviewed. Patient is scheduled for his usual dialysis today Objective - Vital Signs Vital signs: Vital Signs Temp Pulse Resp BP Pulse Ox 05/28/17 08:18 98.0 F 81 26 131/77 96 05/28/17 04:08 97.6 F 78 17 109/63 96 05/28/17 00:50 97.5 F L 85 17 148/77 95 05/27/17 20:18 93 05/27/17 20:09 97.9 F 84 20 138/71 93 05/27/17 15:58 97.5 F L 84 22 135/77 96 05/27/17 12:08 90 16 94 05/27/17 11:51 98.2 F 90 22 134/77 87 Intake and Output 05/27/17 05/28/17 05/28/17 23:59 07:59 15:59 Intake Total 440 / 440 600 / 600 Output Total 220 / 220 425 / 425 Balance 220 / 220 175 / 175 Intake: Oral 440 / 440 600 / 600 Output: Urine 220 / 220 425 / 425 Other: Meal 2 cereals Percent of Meal Consumed 100% Stool Size Small Stool Consistency formed Stool Color Brown Weight 103.8 kg Blood Glucose* 219 273 Patient Weight 05/28/17 23:59 Weight 103.8 kg - General Appearance Exam: Patient is alert and oriented but appears lethargic. Lungs exhibit rales in the right base. Heart regular rate and rhythm. Abdomen is benign. There is minimal lower extremity swelling. There is an AV fistula in the left arm. - Lab 05/28/17 05:55 05/28/17 05:55 Most recent lab results Calcium 9.0 mg/dL (8.6-10.8) 05/28/17 05:55 Phosphorus 5.4 mg/dL (2.3-4.7) H 05/24/17 06:40 Magnesium 1.8 mg/dL (1.6-2.6) 05/25/17 21:03 Consult Discharge Plan - Plan [facility]errals: [facility] [Primary Care Provider] -
[2017-05-28] MEDS ORDERED: 0.9 % Sodium Chloride 250 ML IVC PRN (08:43)
--- NOTE | 2017-05-28 09:22 | Internal Med Progress Note ---
<Sarah Graves - Last Filed: 05/28/17 10:08> Date of Encounter: 05/28/17 Time of Encounter: 09:00 - Assessment and plan (1) Pancytopenia Current Visit: Yes Status: Acute Assessment and plan: Patient has pancytopenia. This is probably multifactorial. 10/26/2014 Bone marrow aspiration and biopsy (@[facility])- no primary or secondary pathology, anemia of chronic disease(increase iron storage, decrease sideroblasts), pancytopenia, no immunophenotypic abnormalities. 06/19/2016 (@[facility]) Colonoscopy- normal EGD- severe gastritis, ulcers in body of stomach, polyp in antrum. Biopsies taken from all of the previous. Report not sent over. Will consult Hem/ Onc. Negative for respiratory infection panel, Parvovirus, and Monospot. Chest X-ray demonstrated acute CHF- Lasix increased Ferrous sulfate and folate supplements have been ordered. There is no sign of active bleeding. Patient denies melena, hematemesis, hematochezia. (2) ESRD (end stage renal disease) on dialysis Current Visit: Yes Status: Chronic Assessment and plan: Hemodialysis Friday. The patient will have hemodialysis today. (3) Type 2 diabetes mellitus with diabetic chronic kidney disease Current Visit: Yes Status: Chronic Assessment and plan: Blood glucose is 276. We will continue his home medications, diabetic diet. We will continue to monitor. Qualifiers: Diabetes mellitus fdc insulin use: with fdc use Chronic kidney disease stage: on chronic dialysis Qualified Code(s): E11.22 - Type 2 diabetes mellitus with diabetic chronic kidney disease; N18.6 - End stage renal disease; Z79.4 - long term care phlebotomist (current) use of insulin; Z99.2 - Dependence on renal dialysis (4) Hypertension Current Visit: Yes Status: Chronic Assessment and plan: Hypertension is at goal for this patient. We will continue to monitor. Qualifiers: Hypertension type: essential hypertension Qualified Code(s): I10 - Essential (primary) hypertension (5) Physical deconditioning Current Visit: Yes Status: Acute Assessment and plan: Patient presents with weakness and lethargy. PT and OT recommend that patient be discharged to SNF to address weakness strengthen balance - Subjective Interval history: Patient is sitting up in bed comfortably answering questions appropriately. He states that he still has dizziness and weakness, cough with jerome sputum, and shortness of breath. He denies chest pain, nausea, vomiting, abdominal pain, palpitations, change in vision. He will receive hemodialysis today. He is on 2 L of oxygen. - Constitutional Vitals: Temp Pulse Resp BP Pulse Ox 98.0 F 81 26 131/77 96 05/28/17 08:18 05/28/17 08:18 05/28/17 08:18 05/28/17 08:18 05/28/17 08:18 General appearance: Present: A&O X 3, pleasant, answers questions appropriately - Head Head exam: Present: atraumatic, normocephalic - Eye Eye exam: Present: conjuntiva pink. Absent: scleral icterus - Neck Neck exam general surgery: Present: supple, trachea midline - Respiratory Respiratory exam: Present: CTAB (Upper lobes of lungs bilaterally), rales (Base of lungs bilaterally). Absent: accessory muscle use, respiratory distress, stridor, wheezes - Cardiovascular Cardiovascular exam: Present: RRR, +S1, +S2. Absent: clicks, rubs - GI/Abdominal GI/Abdominal exam: Present: normal bowel sounds. Absent: guarding, tenderness - Extremities Exam Extremities exam: Absent: calf tenderness, joint swelling, mottling - Back Exam Back exam: Present: normal inspection. Absent: tenderness - Skin Skin exam: Present: dry, intact Internal Medicine: Result - Labs CBC & Chem 7: 05/28/17 05:55 05/28/17 05:55 Labs: Short CBC 05/28/17 Range/Units 05:55 WBC 2.4 L (4.3-11.1) K/mcL Hgb 8.3 L (12.9-16.9) g/dL Hct 25.3 L (37.5-50.1) % Plt Count 66 L (140-400) K/mcL Neutrophils # 1.5 L (1.6-8.9) K/mcL BMP 05/28/17 05:55 Sodium 131 L Potassium 4.6 H Chloride 97 L Carbon Dioxide 24 BUN 53 H Creatinine 5.98 H Glucose 276 H Calcium 9.0 Cardiac Enzymes 05/26/17 05/26/17 Range/Units 03:02 08:42 CK-MB (CK-2) 2.3 2.1 (0.0-5.0) ug/L - Impressions Impressions Chest X-Ray 05/27/17 11:42 IMPRESSION: Findings suggesting developing acute congestive heart failure with mild effusions. D/ / 05/27/2017 14:27:11 Terry Selby MD / [email or web address] Interpreting Provider: Terry Selby MD Abdomen Ultrasound 05/27/17 20:00 IMPRESSION: Hepatomegaly, with coarsened echotexture which may be related to fibrofatty infiltration. No definite capsular nodularity is identified. Small stones and sludge within the gallbladder, without evidence of cholecystitis. Incidental note made of a right pleural effusion. D/ / Reese Trujillo MD / Reese Trujillo MD Interpreting Provider: Reese Trujillo MD Consult Discharge Plan - Plan [facility]errals: [facility] [Primary Care Provider] - <Lucio Damon H - Last Filed: 05/28/17 11:04> Date of Encounter: 05/28/17 - Constitutional Vitals: Temp Pulse Resp BP Pulse Ox 98.0 F 81 26 131/77 96 05/28/17 08:18 05/28/17 08:18 05/28/17 08:18 05/28/17 08:18 05/28/17 08:18 Internal Medicine: Result - Labs CBC & Chem 7: 05/28/17 05:55 05/28/17 05:55 Labs: Short CBC 05/28/17 Range/Units 05:55 WBC 2.4 L (4.3-11.1) K/mcL Hgb 8.3 L (12.9-16.9) g/dL Hct 25.3 L (37.5-50.1) % Plt Count 66 L (140-400) K/mcL Neutrophils # 1.5 L (1.6-8.9) K/mcL BMP 05/28/17 05:55 Sodium 131 L Potassium 4.6 H Chloride 97 L Carbon Dioxide 24 BUN 53 H Creatinine 5.98 H Glucose 276 H Calcium 9.0 Cardiac Enzymes 05/26/17 05/26/17 Range/Units 03:02 08:42 CK-MB (CK-2) 2.3 2.1 (0.0-5.0) ug/L - Impressions Impressions Chest X-Ray 05/27/17 11:42 IMPRESSION: Findings suggesting developing acute congestive heart failure with mild effusions. D/ / 05/27/2017 14:27:11 Terry Selby MD / [email or web address] Interpreting Provider: Terry Selby MD Abdomen Ultrasound 05/27/17 20:00 IMPRESSION: Hepatomegaly, with coarsened echotexture which may be related to fibrofatty infiltration. No definite capsular nodularity is identified. Small stones and sludge within the gallbladder, without evidence of cholecystitis. Incidental note made of a right pleural effusion. D/ / Reese Trujillo MD / Reese Trujillo MD Interpreting Provider: Reese Trujillo MD - Attending Attestation -Acute diastolic CHF likely related to volume overload from ESRD CXR on 05/26/17 acute CHF with mild effusions Robb remove 2 Lt of Volume through HD COntinue Lasix - Pancytopenia unclear origin Liver ultrasound did not show signs of cirrhosis Parvo and EBV test pending consier Plavix as a possible cause, consider discontinuing it Oncology recommendations appreciated I examined this patient and my medical decision-making was reviewed with the INSTRUMENTATION SPECIALIST/PA/Advanced Practice Nurse/Resident Physician. I agree with the documented findings, disposition and treatment plan as described except to the extent set forth below.
[2017-05-28] MEDS ORDERED: 0.9 % Sodium Chloride 2,000 ML ONE (10:48)
[2017-05-28] MEDS: *HR* OxyCODONE Immed Rel 5 MG TABLET PO PRN ×2 (14:50→22:00)
[2017-05-28] MEDS: *HR* LORazepam 0.5 MG TABLET PO PRN (14:51)
[2017-05-28] MEDS: Furosemide 40 MG TABLET PO SCH (17:15)
[2017-05-29] MEDS: *HR* Heparin 5,000 UNIT/ML VIAL SQ SCH ×3 (06:31→21:31)
[2017-05-29 06:43] LABS: Calcium 9.1 mg/dL (8.6-10.8); Potassium 4.7 mEq/L (3.5-4.5)
[2017-05-29 06:50] LABS: Hematocrit 25.3 % (37.5-50.1); Hemoglobin 8.3 g/dL (12.9-16.9); Immature Platelets 9.4 % (1.1-6.1); Mean Corpuscular HGB Conc 32.8 g/dL (31.6-35.5); Mean Corpuscular Hemoglobin 30.5 pg (28.0-33.3); Mean Platelet Volume 12.4 fL (9.4-12.4); Red Blood Count 2.72 M/mcL (4.19-5.50); Red Cell Distribution Width 15.4 % (11.5-14.5)
--- NOTE | 2017-05-29 09:33 | Nephrology Progress Note ---
Date of Encounter: 05/29/17 Time of Encounter: 09:20 - Assessment and Plan (1) ESRD (end stage renal disease) on dialysis Current Visit: Yes Status: Chronic Hgb 8.3. Tsat 12, will repeat Ferehem today. Onc consult appreciated. HD tomorrow, keeping MWF schedule. Subjective Interval history: Laying in bed, states feeling somewhat weak. No new complaints. Objective - Vital Signs Vital signs: Vital Signs Temp Pulse Resp BP Pulse Ox 05/29/17 08:17 97.7 F 83 16 135/72 94 05/29/17 00:17 97.6 F 79 17 133/69 97 05/28/17 19:42 98.0 F 88 15 129/63 100 05/28/17 16:39 98.0 F 87 16 125/78 94 05/28/17 13:10 98.3 F 16 123/69 05/28/17 13:00 115/64 05/28/17 12:45 118/74 05/28/17 12:30 115/63 05/28/17 12:15 112/65 05/28/17 12:00 118/63 05/28/17 11:45 122/62 05/28/17 11:30 114/65 05/28/17 11:15 118/66 05/28/17 11:00 115/49 05/28/17 10:45 111/56 05/28/17 10:30 117/65 05/28/17 10:15 119/72 05/28/17 10:00 98.0 F 16 133/67 Intake and Output 05/28/17 05/29/17 05/29/17 23:59 07:59 15:59 Intake Total 540 / 540 460 / 460 Output Total 250 / 250 50 / 50 Balance 290 / 290 -50 / -50 460 / 460 Intake: Oral 540 / 540 460 / 460 Output: Urine 250 / 250 50 / 50 Other: Meal Dinner Breakfast Percent of Meal Consumed 100% 100% Blood Glucose* 338 284 - General Appearance General appearance: Present: well-developed, well-nourished, appears started age EENT: Present: mucous membranes moist Neck: Present: no JVD Respiratory: Present: clear Cardiology: Present: edema, regular rate, regular rhythm Additional Comments: mild pitting LE Gastrointestinal: Present: normoactive bowel sounds, no tenderness, distended Integumentary: Present: warm and dry Neurologic: Present: alert and oriented x3 Psychiatric: Present: mood/affect appropriate, cooperative - Lab 05/29/17 04:31 05/29/17 04:31 Most recent lab results Calcium 9.1 mg/dL (8.6-10.8) 05/29/17 04:31 Phosphorus 5.4 mg/dL (2.3-4.7) H 05/24/17 06:40 Magnesium 1.8 mg/dL (1.6-2.6) 05/25/17 21:03 Consult Discharge Plan - Plan [facility]errals: [facility] [Primary Care Provider] - ([facility] )
[2017-05-29] MEDS ORDERED: Ferumoxytol 510 MG in 0.9 % Sodium Chloride 100 ML IVPB ONE (09:34)
[2017-05-29] MEDS: Calcium Acetate 667 MG CAPSULE PO SCH ×3 (09:50→17:53)
[2017-05-29] MEDS: Insulin LISPRO 300 UNITS/3 ML VIAL SQ SCH ×7 (09:50→21:31)
[2017-05-29] MEDS: Furosemide 40 MG TABLET PO SCH ×2 (09:50→17:53)
[2017-05-29] MEDS: Gabapentin 300 MG CAPSULE PO SCH ×2 (09:50→20:05)
[2017-05-29] MEDS: Folic Acid 1 MG TABLET PO SCH (09:51)
[2017-05-29] MEDS: Insulin DETEMIR 100 UNIT/ML X5UNITS SQ SCH ×2 (09:51→21:30)
[2017-05-29] MEDS: Aspirin 81 MG TAB.CHEW PO SCH (09:51)
--- NOTE | 2017-05-29 11:22 | Internal Med Progress Note ---
<Sarah Graves - Last Filed: 05/29/17 11:20> Date of Encounter: 05/29/17 Time of Encounter: 11:20 - Assessment and plan (1) Pancytopenia Current Visit: Yes Status: Acute Assessment and plan: Patient has pancytopenia, this is chronic. This is probably multifactorial. 10/26/2014 Bone marrow aspiration and biopsy (@[facility])- no primary or secondary pathology, anemia of chronic disease(increase iron storage, decrease sideroblasts), pancytopenia, no immunophenotypic abnormalities. 06/19/2016 (@[facility]) Colonoscopy- normal EGD- severe gastritis, ulcers in body of stomach, polyp in antrum. Biopsies taken from all of the previous. Report not sent over. Hem/ Onc consult appreciated. Negative for respiratory infection panel, Parvovirus, and Monospot. Chest X-ray demonstrated acute CHF- Lasix increased Ferrous sulfate and folate supplements have been ordered. There is no sign of active bleeding. Patient denies melena, hematemesis, hematochezia. (2) ESRD (end stage renal disease) on dialysis Current Visit: Yes Status: Chronic Assessment and plan: Hemodialysis Friday. (3) Type 2 diabetes mellitus with diabetic chronic kidney disease Current Visit: Yes Status: Chronic Assessment and plan: Blood glucose is 310- increasing Levemir for better control. We will continue his home medications, diabetic diet. We will continue to monitor. 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 We will continue to monitor. Qualifiers: Hypertension type: essential hypertension Qualified Code(s): I10 - Essential (primary) hypertension (5) Physical deconditioning Current Visit: Yes Status: Acute Assessment and plan: Patient presents with weakness and lethargy. PT and OT recommend that patient be discharged to SNF to address weakness strengthen balance - Subjective Interval history: Patient is laying in bed comfortably answering questions appropriately. He states that he still has dizziness and weakness, and shortness of breath that has improved from yesterday. He denies chest pain, nausea, vomiting, abdominal pain, palpitations, change in vision. He will receive hemodialysis tomorrow. He is on 2 L of oxygen. - Constitutional Vitals: Temp Pulse Resp BP Pulse Ox 97.9 F 80 16 120/55 96 05/29/17 11:07 05/29/17 11:07 05/29/17 11:07 05/29/17 11:07 05/29/17 11:07 General appearance: Present: A&O X 3, pleasant, answers questions appropriately - Head Head exam: Present: atraumatic, normocephalic - Eye Eye exam: Present: conjuntiva pink. Absent: scleral icterus - Neck Neck exam general surgery: Present: lymphadenopathy (Less tender on the right submandibular), supple, trachea midline - Respiratory Respiratory exam: Present: CTAB (Right and left upper lobes), rales (Lower lobes bilaterally, improved from yesterday). Absent: respiratory distress, stridor, wheezes - Cardiovascular Cardiovascular exam: Present: RRR, +S1, +S2. Absent: gallop - GI/Abdominal GI/Abdominal exam: Present: normal bowel sounds. Absent: guarding, tenderness - Extremities Exam Extremities exam: Present: normal inspection. Absent: mottling, tenderness - Back Exam Back exam: Absent: rash noted, tenderness - Skin Skin exam: Present: dry, intact Internal Medicine: Result - Labs CBC & Chem 7: 05/29/17 04:31 05/29/17 04:31 Labs: Short CBC 05/29/17 Range/Units 04:31 WBC 2.1 L (4.3-11.1) K/mcL Hgb 8.3 L (12.9-16.9) g/dL Hct 25.3 L (37.5-50.1) % Plt Count 72 L (140-400) K/mcL BMP 05/29/17 04:31 Sodium 131 L Potassium 4.7 H Chloride 98 Carbon Dioxide 26 BUN 38 H D Creatinine 4.54 H Glucose 310 H Calcium 9.1 Consult Discharge Plan - Plan [facility]errals: [facility] [Primary Care Provider] - ([facility] ) <Lucio Damon H - Last Filed: 05/29/17 13:10> Date of Encounter: 05/29/17 - Constitutional Vitals: Temp Pulse Resp BP Pulse Ox 98.0 F 78 14 142/68 95 05/29/17 12:43 05/29/17 12:43 05/29/17 12:43 05/29/17 12:43 05/29/17 12:43 Internal Medicine: Result - Labs CBC & Chem 7: 05/29/17 04:31 05/29/17 04:31 Labs: Short CBC 05/29/17 Range/Units 04:31 WBC 2.1 L (4.3-11.1) K/mcL Hgb 8.3 L (12.9-16.9) g/dL Hct 25.3 L (37.5-50.1) % Plt Count 72 L (140-400) K/mcL BMP 05/29/17 04:31 Sodium 131 L Potassium 4.7 H Chloride 98 Carbon Dioxide 26 BUN 38 H D Creatinine 4.54 H Glucose 310 H Calcium 9.1 - Attending Attestation Parvovirus test pending ( unlikely the source of his pancytopenia. ) Oncology recommendations appreciated. The patient is feeling very nauseous, start Zofran IV as needed I examined this patient and my medical decision-making was reviewed with the GRAIN BLENDER/PA/Advanced Practice Nurse/Resident Physician. I agree with the documented findings, disposition and treatment plan as described except to the extent set forth below.
[2017-05-29] MEDS: *HR* OxyCODONE Immed Rel 5 MG TABLET PO PRN ×2 (11:31→20:04)
[2017-05-29] MEDS: Ondansetron 4 MG/2 ML VIAL IVP PRN (13:48)
[2017-05-29] MEDS: Lactulose Oral Soln 20 GM/30 ML UDC PO PRN (14:37)
[2017-05-29] MEDS: *HR* LORazepam 0.5 MG TABLET PO PRN (17:54)
[2017-05-30] MEDS: *HR* Heparin 5,000 UNIT/ML VIAL SQ SCH ×3 (06:02→22:19)
[2017-05-30 06:48] LABS: Calcium 9.3 mg/dL (8.6-10.8); Eosinophils % 1.5 %; Hematocrit 25.9 % (37.5-50.1); Hemoglobin 8.3 g/dL (12.9-16.9); Immature Granulocytes % 0.5 % (0-4); Lymphocytes # 0.5 K/mcL (0.6-4.6); Lymphocytes % 27.2 %; Mean Corpuscular Hemoglobin 29.7 pg (28.0-33.3); Mean Corpuscular Volume 92.8 fL (83.0-100.0); Mean Platelet Volume 11.6 fL (9.4-12.4); Monocytes # 0.2 K/mcL (0.0-1.3); Monocytes % 10.8 %; Neutrophils # 1.2 K/mcL (1.6-8.9); Red Blood Count 2.79 M/mcL (4.19-5.50); Red Cell Distribution Width 14.9 % (11.5-14.5)
[2017-05-30 07:40] LABS: Platelet Count 81 K/mcL (140-400)
[2017-05-30 07:44] LABS: Platelet Estimate Slight Decrease (Normal)
[2017-05-30 08:04] LABS: ANA IgG IFA Titer 1:40 (<1:40)
[2017-05-30 08:30] LABS: Parvovirus B19, IgG 5.25 IV (<=0.89); Parvovirus B19, IgM 0.11 IV (<=0.89)
[2017-05-30] MEDS: Calcium Acetate 667 MG CAPSULE PO SCH ×3 (08:50→18:34)
[2017-05-30] MEDS: *HR* OxyCODONE Immed Rel 5 MG TABLET PO PRN ×2 (08:50→18:35)
[2017-05-30] MEDS: Folic Acid 1 MG TABLET PO SCH (08:51)
[2017-05-30] MEDS: Insulin LISPRO 300 UNITS/3 ML VIAL SQ SCH ×7 (08:51→20:21)
[2017-05-30] MEDS: Aspirin 81 MG TAB.CHEW PO SCH (08:51)
[2017-05-30] MEDS: Gabapentin 300 MG CAPSULE PO SCH ×2 (08:51→20:17)
[2017-05-30] MEDS: Insulin DETEMIR 100 UNIT/ML X5UNITS SQ SCH ×2 (08:57→20:17)
[2017-05-30] MEDS: Furosemide 40 MG TABLET PO SCH ×2 (08:57→18:34)
--- NOTE | 2017-05-30 09:37 | Nephrology Progress Note ---
Date of Encounter: 05/30/17 Time of Encounter: 09:25 - Assessment and Plan (1) ESRD (end stage renal disease) on dialysis Current Visit: Yes Status: Chronic Hgb stable. Onc consult appreciated. HD today, keeping MWF schedule. Orders given. Subjective Interval history: Laying in bed, states feeling somewhat weak. No new complaints. Objective - Vital Signs Vital signs: Vital Signs Temp Pulse Resp BP Pulse Ox 05/30/17 08:06 97.7 F 80 22 126/74 96 05/30/17 04:00 97.8 F 76 16 129/72 95 05/30/17 00:02 97.6 F 74 16 126/65 97 05/29/17 19:37 97.4 F L 76 18 118/68 94 05/29/17 15:59 97.5 F L 77 24 132/71 92 05/29/17 12:43 98.0 F 78 14 142/68 95 05/29/17 11:07 97.9 F 80 16 120/55 96 05/29/17 09:50 96 Intake and Output 05/29/17 05/30/17 05/30/17 23:59 07:59 15:59 Intake Total 0 / 0 Output Total 125 / 125 Balance -125 / -125 Intake: Oral 0 / 0 Output: Urine 125 / 125 Other: Weight 103.079 kg Blood Glucose* 204 269 Patient Weight 05/30/17 23:59 Weight 103.079 kg - General Appearance General appearance: Present: well-developed, well-nourished, appears started age , obese EENT: Present: mucous membranes moist Neck: Present: no JVD Respiratory: Present: clear Cardiology: Present: edema, regular rate, regular rhythm Additional Comments: trace pitting Gastrointestinal: Present: normoactive bowel sounds, no tenderness, distended Integumentary: Present: warm and dry Neurologic: Present: alert and oriented x3 Psychiatric: Present: mood/affect appropriate - Lab 05/30/17 06:00 05/30/17 06:00 Most recent lab results Calcium 9.3 mg/dL (8.6-10.8) 05/30/17 06:00 Phosphorus 5.4 mg/dL (2.3-4.7) H 05/24/17 06:40 Magnesium 1.8 mg/dL (1.6-2.6) 05/25/17 21:03 Consult Discharge Plan - Plan [facility]errals: [facility] [Primary Care Provider] - ([facility] )
[2017-05-30] MEDS ORDERED: 0.9 % Sodium Chloride 250 ML IVC PRN (10:34)
[2017-05-30] MEDS ORDERED: 0.9 % Sodium Chloride 1,000 ML PRIME SCH (10:45)
[2017-05-30] MEDS: Ondansetron 4 MG/2 ML VIAL IVP PRN (12:10)
[2017-05-30] MEDS: *HR* LORazepam 0.5 MG TABLET PO PRN (13:57)
--- NOTE | 2017-05-30 14:01 | Oncology Inp Progress Note ---
Date of Encounter: 05/30/17 Time of Encounter: 13:00 (1) Anemia Current Visit: No Status: Acute Assessment and plan: This patient has a normocytic normochromic anemia with indices consistent with anemia of chronic kidney disease as well as functional iron deficiency. I would continue with JAMES with hemodialysis and maximize dosing per nephrology protocol, in addition, I would recommend continued iron supplementation to achieve a transferrin saturation greater than 20% as I think is functional iron deficiency is contributing. His ferritin is likely elevated in the setting of cirrhosis. Qualifiers: Anemia type: iron deficiency Iron deficiency anemia type: unspecified iron deficiency Qualified Code(s): D50.9 - Iron deficiency anemia, unspecified (2) Pancytopenia Current Visit: Yes Status: Acute Assessment and plan: His leukopenia and from cytopenia are secondary to splenic sequestration related to cirrhosis. No intervention is necessary Oncology: Subj Interval history: Currently eating lunch. States once does not taste all that good to him. No fever chills symptoms of infection. Still short of breath. Frustrated about having to undergo dialysis. Still fatigued and tired as well. - Constitutional Vitals: Vital Signs Temp Pulse Resp BP Pulse Ox 05/30/17 11:58 97.6 F 79 16 161/74 95 05/30/17 09:00 96 05/30/17 08:06 97.7 F 80 22 126/74 96 05/30/17 04:00 97.8 F 76 16 129/72 95 05/30/17 00:02 97.6 F 74 16 126/65 97 05/29/17 19:37 97.4 F L 76 18 118/68 94 05/29/17 15:59 97.5 F L 77 24 132/71 92 Intake and Output 05/30/17 05/30/17 05/30/17 00:59 08:59 16:59 Intake Total 0 / 0 240 / 240 Output Total 125 / 125 0 / 0 Balance -125 / -125 240 / 240 Intake: Oral 0 / 0 240 / 240 Output: Urine 125 / 125 0 / 0 Other: Meal Lunch Percent of Meal Consumed 95% Weight 103.079 kg Blood Glucose* 204 269 242 Patient Weight 05/31/17 00:59 Weight 103.079 kg General appearance: no acute distress, obese - Head Head exam: Present: atraumatic, normal inspection, normocephalic - Eye Eye exam: Present: normal appearance - ENT ENT exam: Present: mucous membranes moist, normal oropharynx - Neck Neck exam: Present: full ROM, normal inspection - Respiratory Respiratory exam: Present: CTAB - Cardiovascular Cardiovascular exam: Present: RRR - GI/Abdominal GI/Abdominal exam: Present: normal bowel sounds, soft - Extremities Exam Extremities exam: Present: pedal edema - Neurological Exam Neurological exam: Present: alert, CN II-XII intact, oriented X3 Oncology: Obj Data - Labs CBC & Chem 7: 05/30/17 06:00 05/30/17 06:00 Labs: Laboratory Results - last 24 hr 05/25/17 05/27/17 05/28/17 03:08 12:05 16:41 WBC RBC Hgb Hct MCV MCH MCHC RDW Plt Count MPV Immature Gran % Seg Neutrophils % Lymphocytes % Monocytes % Eosinophils % Basophils % Neutrophils # Lymphocytes # Monocytes # Eosinophils # Basophils # Platelet Estimate Immature Plt Fraction Sodium Potassium Chloride Carbon Dioxide BUN Creatinine Est GFR ( Amer) Est GFR (Non-Af Amer) BUN/Creatinine Ratio Glucose POC Glucose 302 H Calculated Osmolality Calcium SABAS Titer 1:40 H Parvovirus B19 IgG Ab 5.25 H Parvovirus B19 IgM Ab 0.11 05/29/17 05/29/17 05/29/17 08:12 11:03 12:42 WBC RBC Hgb Hct MCV MCH MCHC RDW Plt Count MPV Immature Gran % Seg Neutrophils % Lymphocytes % Monocytes % Eosinophils % Basophils % Neutrophils # Lymphocytes # Monocytes # Eosinophils # Basophils # Platelet Estimate Immature Plt Fraction Sodium Potassium Chloride Carbon Dioxide BUN Creatinine Est GFR ( Amer) Est GFR (Non-Af Amer) BUN/Creatinine Ratio Glucose POC Glucose 284 H 309 H 209 H Calculated Osmolality Calcium SABAS Titer Parvovirus B19 IgG Ab Parvovirus B19 IgM Ab 05/29/17 05/29/17 05/30/17 16:02 20:30 06:00 WBC 2.0 L RBC 2.79 L Hgb 8.3 L Hct 25.9 L MCV 92.8 MCH 29.7 MCHC 32.0 RDW 14.9 H Plt Count 81 L MPV 11.6 Immature Gran % 0.5 Seg Neutrophils % 60.0 Lymphocytes % 27.2 Monocytes % 10.8 Eosinophils % 1.5 Basophils % 0.0 Neutrophils # 1.2 L Lymphocytes # 0.5 L Monocytes # 0.2 Eosinophils # 0.0 Basophils # 0.0 Platelet Estimate Slight Decrease L Immature Plt Fraction 7.0 H Sodium Potassium Chloride Carbon Dioxide BUN Creatinine Est GFR ( Amer) Est GFR (Non-Af Amer) BUN/Creatinine Ratio Glucose POC Glucose 88 204 H Calculated Osmolality Calcium SABAS Titer Parvovirus B19 IgG Ab Parvovirus B19 IgM Ab 05/30/17 05/30/17 06:00 08:10 WBC RBC Hgb Hct MCV MCH MCHC RDW Plt Count MPV Immature Gran % Seg Neutrophils % Lymphocytes % Monocytes % Eosinophils % Basophils % Neutrophils # Lymphocytes # Monocytes # Eosinophils # Basophils # Platelet Estimate Immature Plt Fraction Sodium 134 L Potassium 5.0 H Chloride 98 Carbon Dioxide 27 BUN 43 H Creatinine 4.98 H Est GFR ( Amer) 14 L Est GFR (Non-Af Amer) 12 L BUN/Creatinine Ratio 9 Glucose 237 H POC Glucose 269 H Calculated Osmolality 297 Calcium 9.3 SABAS Titer Parvovirus B19 IgG Ab Parvovirus B19 IgM Ab - Impressions Impressions Abdomen/Pelvis CT 05/29/17 14:00 IMPRESSION: 1. No acute intra-abdominal or intrapelvic process. 2. Mild splenomegaly may suggest underlying portal hypertension given the patient's history of cirrhosis. There is a minimal amount of subphrenic ascites. 3. Cholelithiasis. 4. Bilateral renal cysts. 5. Bilateral pleural effusions, right greater than left, with bibasilar atelectasis. There is mild interstitial pulmonary edema as well. D/ : / 05/29/2017 14:42:18 Leonidas Arnold MD / [email or web address] Interpreting Provider: Leonidas Arnold MD Consult Discharge Plan - Plan [facility]errals: [facility] [Primary Care Provider] - (Patient will more than j[facility] go [place] [facility] )
--- NOTE | 2017-05-30 14:35 | Internal Med Progress Note ---
<Sarah Graves - Last Filed: 05/30/17 14:33> Date of Encounter: 05/30/17 Time of Encounter: 10:00 - Assessment and plan (1) Pancytopenia Current Visit: Yes Status: Acute Assessment and plan: Patient has chronic pancytopenia. Hem/ Onc consult appreciated. -Leukopenia and cytopenia are most likely secondary to splenic sequestration related to cirrhosis. -The patient has a normocytic normochromic anemia that is distant with anemia of chronic kidney disease. Along with a iron deficiency. 10/26/2014 Bone marrow aspiration and biopsy (@[place])- no primary or secondary pathology, anemia of chronic disease(increase iron storage, decrease sideroblasts), pancytopenia, no immunophenotypic abnormalities. 06/19/2016 (@[place]) Colonoscopy- normal EGD- severe gastritis, ulcers in body of stomach, polyp in antrum. Biopsies taken from all of the previous. Report not sent over. Ct abd/pelvis demonstrate no acute process. Mild splenomegaly from portal hypertension given cirrhosis. Negative for respiratory infection panel, Parvovirus, and Monospot. No intervention needed. Ferrous sulfate and folate supplements continued. There is no sign of active bleeding. Patient denies melena, hematemesis, hematochezia. (2) ESRD (end stage renal disease) on dialysis Current Visit: Yes Status: Chronic Assessment and plan: Hemodialysis Friday. Continue with JAMES (3) Type 2 diabetes mellitus with diabetic chronic kidney disease Current Visit: Yes Status: Chronic Assessment and plan: Blood glucose has improved and is 239 Levemir was increased for better control. We will continue his home medications, diabetic diet. We will continue to monitor. Qualifiers: Diabetes mellitus senior living insulin use: with senior living use Chronic kidney disease stage: on chronic dialysis Qualified Code(s): E11.22 - Type 2 diabetes mellitus with diabetic chronic kidney disease; N18.6 - End stage renal disease; Z79.4 - bed bug exterminator (current) use of insulin; Z99.2 - Dependence on renal dialysis (4) Hypertension Current Visit: Yes Status: Chronic Assessment and plan: Hypertension is at goal for this patient. We will continue to monitor. Qualifiers: Hypertension type: essential hypertension Qualified Code(s): I10 - Essential (primary) hypertension (5) Physical deconditioning Current Visit: Yes Status: Acute Assessment and plan: Patient presents with weakness and lethargy. PT and OT recommend that patient be discharged to SNF to address weakness strengthen balance Patient would rather go home but is considering. - Subjective Interval history: Patient is laying in bed comfortably answering questions appropriately. He states that he still has dizziness and weakness, and shortness of breath that has improved from yesterday. He denies chest pain, nausea, vomiting, abdominal pain, palpitations, change in vision. He will receive hemodialysis today He is on 2 L of oxygen. - Constitutional Vitals: Temp Pulse Resp BP Pulse Ox 97.6 F 79 16 161/74 95 05/30/17 11:58 05/30/17 11:58 05/30/17 11:58 05/30/17 11:58 05/30/17 11:58 General appearance: Present: A&O X 3, pleasant, answers questions appropriately - Head Head exam: Present: atraumatic, normocephalic - Eye Eye exam: Present: PERRL, conjuntiva pink. Absent: scleral icterus - Neck Neck exam general surgery: Present: supple, trachea midline - Respiratory Respiratory exam: Present: CTAB (Upper lobes of lung bilaterally), rales (Very little and lower lobes of long bilaterally). Absent: stridor, wheezes - Cardiovascular Cardiovascular exam: Present: RRR, +S1, +S2. Absent: rubs - GI/Abdominal GI/Abdominal exam: Present: normal bowel sounds. Absent: guarding, tenderness - Extremities Exam Extremities exam: Present: normal inspection. Absent: mottling, pedal edema, tenderness - Back Exam Back exam: Present: normal inspection. Absent: tenderness - Skin Skin exam: Present: dry, intact Internal Medicine: Result - Labs CBC & Chem 7: 05/30/17 06:00 05/30/17 06:00 Labs: Short CBC 05/30/17 Range/Units 06:00 WBC 2.0 L (4.3-11.1) K/mcL Hgb 8.3 L (12.9-16.9) g/dL Hct 25.9 L (37.5-50.1) % Plt Count 81 L (140-400) K/mcL Neutrophils # 1.2 L (1.6-8.9) K/mcL BMP 05/30/17 06:00 Sodium 134 L Potassium 5.0 H Chloride 98 Carbon Dioxide 27 BUN 43 H Creatinine 4.98 H Glucose 237 H Calcium 9.3 - Impressions Impressions Abdomen/Pelvis CT 05/29/17 14:00 IMPRESSION: 1. No acute intra-abdominal or intrapelvic process. 2. Mild splenomegaly may suggest underlying portal hypertension given the patient's history of cirrhosis. There is a minimal amount of subphrenic ascites. 3. Cholelithiasis. 4. Bilateral renal cysts. 5. Bilateral pleural effusions, right greater than left, with bibasilar atelectasis. There is mild interstitial pulmonary edema as well. D/ / 05/29/2017 14:42:18 Leonidas Arnold MD / [email or web address] Interpreting Provider: Leonidas Arnold MD Consult Discharge Plan - Plan [facility]errals: [facility] [Primary Care Provider] - (Patient will more than jaja go to [facility] ) <Phillip Iqbal - Last Filed: 05/30/17 18:15> Date of Encounter: 05/30/17 - Assessment and plan (1) Pancytopenia Current Visit: Yes Status: Acute (2) Weakness Current Visit: Yes Status: Acute (3) Hypertension Current Visit: Yes Status: Chronic Qualifiers: Hypertension type: essential hypertension Qualified Code(s): I10 - Essential (primary) hypertension (4) Physical deconditioning Current Visit: Yes Status: Acute (5) ESRD (end stage renal disease) on dialysis Current Visit: Yes Status: Chronic (6) Type 2 diabetes mellitus with diabetic chronic kidney disease Current Visit: Yes Status: Chronic Qualifiers: Diabetes mellitus senior living insulin use: with machine long goods helper use Chronic kidney disease stage: on chronic dialysis Qualified Code(s): E11.22 - Type 2 diabetes mellitus with diabetic chronic kidney disease; N18.6 - End stage renal disease; Z79.4 - bed bug exterminator (current) use of insulin; Z99.2 - Dependence on renal dialysis (7) Anemia Current Visit: No Status: Acute Qualifiers: Anemia type: due to chronic kidney disease Chronic kidney disease stage: on chronic dialysis Qualified Code(s): N18.6 - End stage renal disease; D63.1 - Anemia in chronic kidney disease; Z99.2 - Dependence on renal dialysis - Constitutional Vitals: Temp Pulse Resp BP Pulse Ox 97.9 F 79 18 132/67 95 05/30/17 14:40 05/30/17 11:58 05/30/17 14:40 05/30/17 17:25 05/30/17 11:58 Internal Medicine: Result - Labs CBC & Chem 7: 05/30/17 06:00 05/30/17 06:00 Labs: Short CBC 05/30/17 Range/Units 06:00 WBC 2.0 L (4.3-11.1) K/mcL Hgb 8.3 L (12.9-16.9) g/dL Hct 25.9 L (37.5-50.1) % Plt Count 81 L (140-400) K/mcL Neutrophils # 1.2 L (1.6-8.9) K/mcL BMP 05/30/17 06:00 Sodium 134 L Potassium 5.0 H Chloride 98 Carbon Dioxide 27 BUN 43 H Creatinine 4.98 H Glucose 237 H Calcium 9.3 - Impressions Impressions Abdomen/Pelvis CT 05/29/17 14:00 IMPRESSION: 1. No acute intra-abdominal or intrapelvic process. 2. Mild splenomegaly may suggest underlying portal hypertension given the patient's history of cirrhosis. There is a minimal amount of subphrenic ascites. 3. Cholelithiasis. 4. Bilateral renal cysts. 5. Bilateral pleural effusions, right greater than left, with bibasilar atelectasis. There is mild interstitial pulmonary edema as well. D/ / 05/29/2017 14:42:18 Leonidas Arnold MD / [email or web address] Interpreting Provider: Leonidas Arnold MD - Attending Attestation I examined this patient and my medical decision-making was reviewed with the Resident Physician on 05/30/17. I agree with the documented findings, disposition and treatment plan as described except to the extent set forth below. Mr. Velarde is currently admitted due to pancytopenia, weakness and and ESRD. He remains moderate risk due to potential for worsening clinical status due to chronic comorbidities. Mr. Velarde still feels very tired. He is very reluctant to go to rehab. He denies CP or SOB. No cough. No fever or chills. His blood pressure and blood sugar have been doing somewhat better. Exam Alert Comfortable in bed Mucus membranes dry Heart reg Lungs diminished Abd soft - nontender Labs reviewed I/P 1. Pancytopenia - appears related to splenic sequestration. 2. Anemia chr disease 3. ESRD on HD 4. HTN - currently controlled 5. DM Further diagnoses and plan as above [facility] We will continue to address over the weekend.
[2017-05-31] MEDS: *HR* LORazepam 0.5 MG TABLET PO PRN ×2 (02:27→21:31)
[2017-05-31] MEDS: *HR* OxyCODONE Immed Rel 5 MG TABLET PO PRN ×3 (03:24→21:28)
[2017-05-31] MEDS: *HR* Heparin 5,000 UNIT/ML VIAL SQ SCH ×3 (05:46→21:32)
[2017-05-31 07:36] LABS: Immature Granulocytes % 0.5 % (0-4); Mean Platelet Volume 11.8 fL (9.4-12.4)
[2017-05-31 07:37] LABS: Potassium 4.8 mEq/L (3.5-4.5)
[2017-05-31 07:38] LABS: Eosinophils % 1.4 %; Hematocrit 24.5 % (37.5-50.1); Hemoglobin 7.8 g/dL (12.9-16.9); Immature Platelets 5.8 % (1.1-6.1); Lymphocytes # 0.6 K/mcL (0.6-4.6); Lymphocytes % 27.4 %; Mean Corpuscular HGB Conc 31.8 g/dL (31.6-35.5); Mean Corpuscular Volume 94.2 fL (83.0-100.0); Monocytes # 0.3 K/mcL (0.0-1.3); Monocytes % 12.6 %; Neutrophils # 1.3 K/mcL (1.6-8.9); Red Cell Distribution Width 14.6 % (11.5-14.5); Segmented Neutrophils % 58.1 %
[2017-05-31 07:51] LABS: Platelet Count 79 K/mcL (140-400)
[2017-05-31] MEDS: Folic Acid 1 MG TABLET PO SCH (08:11)
[2017-05-31] MEDS: Aspirin 81 MG TAB.CHEW PO SCH (08:11)
[2017-05-31] MEDS: Gabapentin 300 MG CAPSULE PO SCH ×2 (08:11→21:28)
[2017-05-31] MEDS: Calcium Acetate 667 MG CAPSULE PO SCH ×3 (08:11→17:04)
[2017-05-31] MEDS: Furosemide 40 MG TABLET PO SCH ×2 (08:12→17:04)
[2017-05-31] MEDS: Insulin LISPRO 300 UNITS/3 ML VIAL SQ SCH ×7 (08:12→21:28)
[2017-05-31] MEDS: Insulin DETEMIR 100 UNIT/ML X5UNITS SQ SCH ×2 (08:12→21:28)
--- NOTE | 2017-05-31 09:52 | Nephrology Progress Note ---
Date of Encounter: 05/31/17 Time of Encounter: 09:10 - Assessment and Plan (1) ESRD (end stage renal disease) on dialysis Current Visit: Yes Status: Chronic Hem/Onc consult appreciated. Next HD on Friday, keeping MWF schedule. Orders given. Subjective Interval history: Laying in bed, states feeling somewhat weak, feels fatigued. No new complaints. Objective - Vital Signs Vital signs: Vital Signs Temp Pulse Resp BP Pulse Ox 05/31/17 06:54 97.5 F L 74 18 113/57 98 05/31/17 03:59 97.9 F 80 16 134/72 95 05/30/17 23:59 98.1 F 82 16 134/61 97 05/30/17 19:53 97.9 F 85 16 156/73 95 05/30/17 18:00 98.4 F 18 131/69 05/30/17 17:40 128/66 05/30/17 17:25 132/67 05/30/17 17:10 125/64 05/30/17 16:55 122/61 05/30/17 16:40 123/60 05/30/17 16:25 129/56 05/30/17 16:10 123/63 05/30/17 15:55 130/64 05/30/17 15:40 132/63 05/30/17 15:25 117/62 05/30/17 15:10 122/63 05/30/17 14:55 134/70 05/30/17 14:40 97.9 F 18 132/71 05/30/17 11:58 97.6 F 79 16 161/74 95 Intake and Output 05/30/17 05/31/17 05/31/17 23:59 07:59 15:59 Intake Total 840 / 840 0 / 0 480 / 480 Output Total 2850 / 2850 100 / 100 Balance -2009 / -2009 -100 / -100 480 / 480 Intake: Oral 840 / 840 0 / 0 480 / 480 Output: Urine 250 / 250 100 / 100 Total Dialysis (HD) 2600 / 2600 Output Other: Meal Dinner Breakfast Percent of Meal Consumed 100% 95% Weight 102.149 kg Blood Glucose* 225 266 Hemodialysis Net Fluid 2000 Removed (mL) Patient Weight 05/31/17 23:59 Weight 102.149 kg - General Appearance General appearance: Present: well-developed, well-nourished, appears started age EENT: Present: mucous membranes moist Neck: Present: no JVD Respiratory: Present: clear Cardiology: Present: no edema, regular rate, regular rhythm Gastrointestinal: Present: normoactive bowel sounds, no tenderness, distended Integumentary: Present: warm and dry Neurologic: Present: alert and oriented x3 Psychiatric: Present: mood/affect appropriate, cooperative - Lab 05/31/17 06:20 05/31/17 06:20 Most recent lab results Calcium 9.0 mg/dL (8.6-10.8) 05/31/17 06:20 Phosphorus 5.4 mg/dL (2.3-4.7) H 05/24/17 06:40 Magnesium 1.8 mg/dL (1.6-2.6) 05/25/17 21:03 Consult Discharge Plan - Plan [facility]errals: [facility]Primary Care Provider[facility] - [facility]
--- NOTE | 2017-05-31 14:02 | Internal Med Progress Note ---
<Adrian Velarde - Last Filed: 05/31/17 15:16> Date of Encounter: 05/31/17 Time of Encounter: 10:45 - Assessment and plan (1) Pancytopenia Current Visit: Yes Status: Acute Assessment and plan: Patient has chronic pancytopenia. There is no sign of active bleeding. Hem/ Onc consult appreciated. -Leukopenia and cytopenia are most likely secondary to splenic sequestration related to cirrhosis. -The patient has a normocytic normochromic anemia that is distant with anemia of chronic kidney disease with concurrent with a iron deficiency. 10/26/2014 Bone marrow aspiration and biopsy (@[place])- no primary or secondary pathology, anemia of chronic disease(increase iron storage, decrease sideroblasts), pancytopenia, no immunophenotypic abnormalities. 06/19/2016 (@[place]) Colonoscopy- normal EGD- severe gastritis, ulcers in body of stomach, polyp in antrum. Biopsies taken from all of the previous. Report not sent over. Ct abd/pelvis demonstrate no acute process. Mild splenomegaly from portal hypertension given cirrhosis. Negative for respiratory infection panel, Parvovirus, and Monospot. No intervention needed currently Ferrous sulfate and folate supplements continued. (2) ESRD (end stage renal disease) on dialysis Current Visit: Yes Status: Chronic Assessment and plan: Hemodialysis Friday per nephrology Avoid potentially nephrotoxic agents Nephrology following (3) Hypertension Current Visit: Yes Status: Chronic Assessment and plan: Hypertension is at goal for this patient. We will continue to monitor. Qualifiers: Hypertension type: essential hypertension Qualified Code(s): I10 - Essential (primary) hypertension (4) Physical deconditioning Current Visit: Yes Status: Acute Assessment and plan: Patient continues to have weakness and lethargy. Possibly a result of his multiple medical conditions and pancytopenia PT and OT recommend that patient be discharged to SNF to address weakness strengthen balance Patient would rather go home but is considering. (5) Type 2 diabetes mellitus with diabetic chronic kidney disease Current Visit: Yes Status: Chronic Assessment and plan: Blood glucose has improved, but is still elevated Levemir was increased to 20 units BID diabetic diet Insulin sliding scale Continued monitoring with regular POC glucose checks Qualifiers: Diabetes mellitus mcc insulin use: with mcc use Chronic kidney disease stage: on chronic dialysis Qualified Code(s): E11.22 - Type 2 diabetes mellitus with diabetic chronic kidney disease; N18.6 - End stage renal disease; Z79.4 - prison (current) use of insulin; Z99.2 - Dependence on renal dialysis (6) Weakness Current Visit: Yes Status: Acute Assessment and plan: Patient has continued weakness and lethargy. He is recommended to go to rehab at discharge (7) DVT prophylaxis Current Visit: No Status: Acute Assessment and plan: Heparin SQ TID - Subjective Interval history: Patient reports little change in his overall weakness since yesterday. He continues to report his chronic whole body pain. He states that he is still undecided about whether or not to pursue rehab (as recommended). - Constitutional Vitals: Temp Pulse Resp BP Pulse Ox 97.6 F 74 18 129/69 98 05/31/17 10:49 05/31/17 10:49 05/31/17 10:49 05/31/17 10:49 05/31/17 10:49 General appearance: Present: A&O X 3, pleasant, answers questions appropriately Exam: General: Cooperative, pleasant, no acute distress, alert and oriented 3, answers questions appropriately HEENT: Normocephalic, atraumatic, neck supple, trachea midline, Conjunctiva pink , sclera anicteric, oral mucosa moist, no orophargeal erythema or exudates Respiratory: No accessory muscle usage, slight bibasilar rales Cardiovascular: Regular rate and rhythm, S1 and S2 present, no murmurs/rubs/ gallops/clicks appreciated GI/abdominal: Nondistended, nontender, soft, normal bowel sounds, no peritoneal signs Extremities: No calf tenderness, noncyanotic, no pedal edema appreciated, warm, lower extremity pulses palpable and symmetrical Neurological: Alert and oriented 3, no facial droop, no focal deficits Skin: Dry, intact, normal color Internal Medicine: Result - Labs CBC & Chem 7: 05/31/17 06:20 05/31/17 06:20 Labs: Short CBC 05/31/17 Range/Units 06:20 WBC 2.2 L (4.3-11.1) K/mcL Hgb 7.8 L (12.9-16.9) g/dL Hct 24.5 L (37.5-50.1) % Plt Count 79 L (140-400) K/mcL Neutrophils # 1.3 L (1.6-8.9) K/mcL BMP 05/31/17 06:20 Sodium 135 L Potassium 4.8 H Chloride 98 Carbon Dioxide 31 H BUN 29 H D Creatinine 3.88 H Glucose 275 H Calcium 9.0 Consult Discharge Plan - Plan [facility]errals: [facility] [Primary Care Provider] - (Patient will more than jaja go to in rehab ) <Phillip Iqbal - Last Filed: 05/31/17 17:41> Date of Encounter: 05/31/17 - Assessment and plan (1) Pancytopenia Current Visit: Yes Status: Acute (2) Weakness Current Visit: Yes Status: Acute (3) Hypertension Current Visit: Yes Status: Chronic Qualifiers: Hypertension type: essential hypertension Qualified Code(s): I10 - Essential (primary) hypertension (4) Physical deconditioning Current Visit: Yes Status: Acute (5) ESRD (end stage renal disease) on dialysis Current Visit: Yes Status: Chronic (6) Type 2 diabetes mellitus with diabetic chronic kidney disease Current Visit: Yes Status: Chronic Qualifiers: Diabetes mellitus mcc insulin use: with tank terminal gauger use Chronic kidney disease stage: on chronic dialysis Qualified Code(s): E11.22 - Type 2 diabetes mellitus with diabetic chronic kidney disease; N18.6 - End stage renal disease; Z79.4 - manager long term care (current) use of insulin; Z99.2 - Dependence on renal dialysis (7) Anemia Current Visit: No Status: Acute Qualifiers: Anemia type: due to chronic kidney disease Chronic kidney disease stage: on chronic dialysis Qualified Code(s): N18.6 - End stage renal disease; D63.1 - Anemia in chronic kidney disease; Z99.2 - Dependence on renal dialysis - Constitutional Vitals: Temp Pulse Resp BP Pulse Ox 97.4 F L 73 18 132/66 98 05/31/17 15:14 05/31/17 15:14 05/31/17 15:14 05/31/17 15:14 05/31/17 15:14 Internal Medicine: Result - Labs CBC & Chem 7: 05/31/17 06:20 05/31/17 06:20 Labs: Short CBC 05/31/17 Range/Units 06:20 WBC 2.2 L (4.3-11.1) K/mcL Hgb 7.8 L (12.9-16.9) g/dL Hct 24.5 L (37.5-50.1) % Plt Count 79 L (140-400) K/mcL Neutrophils # 1.3 L (1.6-8.9) K/mcL BMP 05/31/17 06:20 Sodium 135 L Potassium 4.8 H Chloride 98 Carbon Dioxide 31 H BUN 29 H D Creatinine 3.88 H Glucose 275 H Calcium 9.0 - Attending Attestation I examined this patient and my medical decision-making was reviewed with the Resident Physician on 05/31/17. I agree with the documented findings, disposition and treatment plan as described except to the extent set forth below. Mr. Velarde is currently admitted for pancytopenia and weakness. He remains moderate risk due to continued symptoms despite treatment. Mr. Velarde remains very weak he reports. Seems to be sleeping a lot. No fever or chills. No diarrhea. No CP or SOB. Still thinking about whether to go to rehab. Exam Alert. Comfortable at rest. Mucus membranes dry Heart reg No wheeze but poor effort. Abd soft I/P 1. Pancytopenia - presumed due to cirrhosis but has no prior diagnoses. Liver spleen scan ordered. Continue to monitor. 2. Fatigue - recheck echo. ? if another process (i.e. depression). Needs rehab but he has been reluctant to go. 3. ESRD on HD Further diagnoses and plan as above.
[2017-05-31] MEDS: Lactulose Oral Soln 20 GM/30 ML UDC PO PRN (21:34)
[2017-06-01] MEDS: *HR* Heparin 5,000 UNIT/ML VIAL SQ SCH ×3 (06:04→20:56)
[2017-06-01] MEDS: *HR* OxyCODONE Immed Rel 5 MG TABLET PO PRN ×3 (06:07→20:56)
[2017-06-01 06:15] LABS: Hemoglobin 8.2 g/dL (12.9-16.9); Mean Corpuscular Volume 92.6 fL (83.0-100.0)
[2017-06-01 06:17] LABS: Eosinophils % 1.5 %; Hematocrit 25.1 % (37.5-50.1); Immature Granulocytes % 0.4 % (0-4); Immature Platelets 3.9 % (1.1-6.1); Lymphocytes % 24.7 %; Mean Corpuscular HGB Conc 32.7 g/dL (31.6-35.5); Mean Corpuscular Hemoglobin 30.3 pg (28.0-33.3); Mean Platelet Volume 10.7 fL (9.4-12.4); Monocytes # 0.3 K/mcL (0.0-1.3); Monocytes % 11.4 %; Neutrophils # 1.6 K/mcL (1.6-8.9); Red Blood Count 2.71 M/mcL (4.19-5.50); Red Cell Distribution Width 14.6 % (11.5-14.5)
[2017-06-01 06:18] LABS: Lymphocytes # 0.6 K/mcL (0.6-4.6); Platelet Count 95 K/mcL (140-400)
[2017-06-01 06:31] LABS: Calcium 9.2 mg/dL (8.6-10.8); Potassium 4.4 mEq/L (3.5-4.5)
[2017-06-01 06:54] LABS: Platelet Estimate Slight Decrease (Normal)
[2017-06-01] MEDS: Furosemide 40 MG TABLET PO SCH ×2 (08:08→17:02)
[2017-06-01] MEDS: Gabapentin 300 MG CAPSULE PO SCH ×2 (08:08→20:56)
[2017-06-01] MEDS: Aspirin 81 MG TAB.CHEW PO SCH (08:08)
[2017-06-01] MEDS: Folic Acid 1 MG TABLET PO SCH (08:08)
[2017-06-01] MEDS: Calcium Acetate 667 MG CAPSULE PO SCH ×3 (08:09→17:02)
[2017-06-01] MEDS: Insulin LISPRO 300 UNITS/3 ML VIAL SQ SCH ×7 (08:10→21:00)
[2017-06-01] MEDS: Insulin DETEMIR 100 UNIT/ML X5UNITS SQ SCH ×2 (08:14→20:56)
--- NOTE | 2017-06-01 08:17 | Nephrology Progress Note ---
Date of Encounter: 06/01/17 Time of Encounter: 08:00 - Assessment and Plan (1) ESRD (end stage renal disease) on dialysis Current Visit: Yes Status: Chronic Hem/Onc consult appreciated. Next HD on Friday, keeping MWF schedule. Orders given. Subjective Interval history: Sitting on edge of bed, eating breakfast. Feels fatigued. No new complaints. States will be staying at [facility] when discharged. Objective - Vital Signs Vital signs: Vital Signs Temp Pulse Resp BP Pulse Ox 06/01/17 07:08 98 F 82 18 149/72 95 06/01/17 03:41 97.8 F 82 16 151/79 95 05/31/17 23:35 98.2 F 88 16 152/74 98 05/31/17 20:06 98.2 F 79 16 137/67 98 05/31/17 15:14 97.4 F L 73 18 132/66 98 05/31/17 10:49 97.6 F 74 18 129/69 98 Intake and Output 05/31/17 06/01/17 06/01/17 23:59 07:59 15:59 Output Total 150 / 150 Balance -150 / -150 Output: Urine 150 / 150 Other: Weight 102.7 kg Blood Glucose* 210 248 Patient Weight 06/01/17 23:59 Weight 102.7 kg - General Appearance General appearance: Present: well-developed, well-nourished, appears started age EENT: Present: mucous membranes moist Neck: Present: no JVD Respiratory: Present: clear Cardiology: Present: edema, regular rate, regular rhythm Additional Comments: trace Gastrointestinal: Present: normoactive bowel sounds, no tenderness, distended Integumentary: Present: warm and dry Neurologic: Present: alert and oriented x3 Psychiatric: Present: cooperative - Lab 06/01/17 05:57 06/01/17 05:57 Most recent lab results Calcium 9.2 mg/dL (8.6-10.8) 06/01/17 05:57 Phosphorus 5.4 mg/dL (2.3-4.7) H 05/24/17 06:40 Magnesium 1.8 mg/dL (1.6-2.6) 05/25/17 21:03 Consult Discharge Plan - Plan [facility]errals: [facility] [Primary Care Provider[facility] - [facility]
--- NOTE | 2017-06-01 13:46 | Discharge Summary ---
<Adrian Velarde - Last Filed: 06/01/17 13:42> Date of Encounter: 06/01/17 Time of Encounter: 09:30 - Discharge Diagnosis (1) Pancytopenia Priority: Primary Status: Acute (2) ESRD (end stage renal disease) on dialysis Priority: Primary Status: Chronic (3) Hypertension Priority: Primary Status: Chronic Qualifiers: Hypertension type: essential hypertension Qualified Code(s): I10 - Essential (primary) hypertension (4) Physical deconditioning Priority: Primary Status: Acute (5) Type 2 diabetes mellitus with diabetic chronic kidney disease Priority: Primary Status: Chronic Qualifiers: 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 school teacher insulin use: with intermediate school teacher use Chronic kidney disease stage: on chronic dialysis Qualified Code(s): E11.22 - Type 2 diabetes mellitus with diabetic chronic kidney disease; N18.6 - End stage renal disease; Z79.4 - continuous churn buttermaker (current) use of insulin; Z99.2 - Dependence on renal dialysis (6) Weakness Priority: Primary Status: Acute (7) DVT prophylaxis Priority: Secondary Status: Acute - Discharge Medications Prescriptions: Ferrous Sulfate 325 mg PO DAILY@0800 #30 tab Home Medications: Atorvastatin Calcium [Lipitor] 20 mg PO HS 10/04/16 [History] Calcium Acetate [Phos-LO] 1,334 mg PO TIDWM 10/04/16 [History] Gabapentin [Neurontin] 300 mg PO BID 10/04/16 [History] Loratadine [Claritin] 10 mg PO DAILY 10/04/16 [History] Pantoprazole Sodium [Protonix] 40 mg PO DAILY 10/04/16 [History] Paroxetine [Paxil] 20 mg PO QAM 10/04/16 [History] Ranitidine HCl [Heartburn Relief] 150 mg PO DAILY 10/04/16 [History] Tamsulosin [Flomax] 0.4 mg PO DAILY 10/04/16 [History] Aspirin 81 mg PO DAILY #30 tab.chew 10/24/16 [Rx] Metoprolol [Lopressor] 50 mg PO BID #60 tablet 10/24/16 [Rx] Insulin ASPART [NovoLOG] 35 unit SQ BIDWM 04/25/17 [History] OxyCODONE Immed Rel [Roxicodone 5 MG] 10 mg PO Q6HR PRN 04/26/17 [History] Clopidogrel [Plavix] 75 mg PO DAILY #30 tablet 04/28/17 [Rx] Furosemide [Lasix] 60 mg PO BID 05/23/17 [History] Isosorbide MONOnitrate (24 HR) [Imdur] 30 mg PO DAILY 05/23/17 [History] Nitroglycerin [Nitrostat] 0.4 mg SL Q5M PRN 05/23/17 [History] amLODIPine [Norvasc] 5 mg PO DAILY 05/23/17 [History] Docusate [Colace] 100 mg PO DAILY 06/01/17 [Rx] Ferrous Sulfate 325 mg PO DAILY@0800 #30 tab 06/01/17 [Rx] Folic Acid 2 mg PO DAILY tab 06/01/17 [Rx] Allergies/Adverse Reactions: Allergies codeine Allergy (Unknown, Verified 10/04/16 16:06) Hives Methadone Allergy (Unknown, Verified 10/04/16 16:06) Rash Penicillins [PCN] Allergy (Unknown, Verified 10/04/16 16:06) Rash promethazine [From Phenergan] Allergy (Unknown, Verified 10/04/16 16:06) Hives trazodone Allergy (Unknown, Verified 10/04/16 16:06) Itching Procedures/tests Complete & Pending: Procedures Performed prior 72 hours Category Date Time Status CT abd pelvis wo no iv no oral [CT] Routine Cat Scan 05/29/17 14:00 Completed NM liver and spleen static [NM] Routine Exams 05/31/17 12:43 Completed EV limited echocardiogram Routine Y 06/01/17 12:42 Completed Date of admission: 05/23/17 21:21 [facility] Consults: 05/23/17 21:24 Consult to Nephrology [CONS] Routine Consulting Provider: Kidney [facility] HTN Spclst JAIRO Reason for Consult: pls assist in managing this pt known to you for inpt HD, thanks Call Completed: No 05/24/17 03:37 Consult to Occupational Therapy [CONS] Routine Comment: Evaluate, develop and implement POC Reason for Consult: concerned about physical deconditioning Consult to Physical Therapy [CONS] Routine Comment: Evaluate, develop and implement POC Reason for Consult: concerned about physical deconditioning 05/24/17 08:30 Consult to Dialysis [CONS] ONCE 05/26/17 08:45 Consult to Dialysis [CONS] ONCE 05/26/17 11:16 Consult to Oncology Hematology [CONS] Routine Consulting Provider: Margarita Heller Reason for Consult: Pancytopenia Time Notified: 11:20 Call Completed: Yes 05/26/17 17:23 Consult to Smokehouse Operator [CONS] Routine Reason for SW Consult: PT/OT recommending SNF/ECF. 05/28/17 08:45 Consult to Dialysis [CONS] ONCE 05/30/17 10:45 Consult to Dialysis [CONS] ONCE Discharging clinician: Adrian Prachi Anticipated date of discharge: 06/02/17 - Patient Status Disposition: Home, Self-Care Condition: Fair Functional capacity at discharge: independent ambulation Overall status at discharge: patient is back to baseline - Discharge Instructions Follow Up With: Kevan Carrizales MD [Partnered Physician] - [place],PCP [Primary Care Provider] - (Patient will [facility] ) Additional Instructions: Take all medications as prescribed: Continue your home medications Start iron daily Start folic acid daily Follow up with your primary care physician in 1-2 weeks Follow up with Heme/Onc in 2-4 weeks Return to ER if return of symptoms, development of fever, chest pain, or shortness of breath - Diet and Activity Activity: as per physical therapy, increase activity as tolerated Diet: diabetic diet Interval History: Patient reports feeling much better today than he has previously. He reports no concerns/complaints today. Hospital course: Mr. Velarde is a 62 year old male with past medical history of chronic pancytopenia, CAD, ESRD on HD mwf presented to [facility] from [facility] as transfer on . He had originally presented to [facility] because of generalized weakness and fatigue of several weeks duration with worsening for several days prior to presentation, causing him to miss a session of dialysis. During his admission to [facility] he was continued on his normal HD regimen and he received PT/OT. Hematology was consulted to help address his chronic pancytopenia. He had had prior bone marrow aspiration and colonoscopy that were negative. It was Heme/Onc 's opinion that his chronic pancytopenia was due to his chronic kidney disease with concurrent iron deficiency anemia. It is recommended to continue workup for his anemia as an outpatient. As of now patient reports feeling much improved and he is safe/stable for discharge. It is recommended that he do to an inpatient rehab facility where he could further work on his strength, though this was highly recommended multiple times, he refused both the inpatient rehab as well as home health. - Time Spent with Patient Total time spent providing and/or coordinating discharge services: Greater than 30 minutes - Constitutional Vitals: Temp Pulse Resp BP Pulse Ox 98 F 80 18 156/71 99 06/01/17 11:05 06/01/17 11:05 06/01/17 11:05 06/01/17 11:05 06/01/17 11:05 General appearance: Present: A&O X 3, pleasant, answers questions appropriately Exam: General: Cooperative, pleasant, no acute distress, alert and oriented 3, answers questions appropriately HEENT: Normocephalic, atraumatic, neck supple, trachea midline, Conjunctiva pink , sclera anicteric, oral mucosa moist, no orophargeal erythema or exudates Respiratory: No accessory muscle usage, slight bibasilar rales Cardiovascular: Regular rate and rhythm, S1 and S2 present, no murmurs/rubs/ gallops/clicks appreciated GI/abdominal: Nondistended, nontender, soft, normal bowel sounds, no peritoneal signs Extremities: No calf tenderness, noncyanotic, no pedal edema appreciated, warm, lower extremity pulses palpable and symmetrical Neurological: Alert and oriented 3, no facial droop, no focal deficits Skin: Dry, intact, normal color <Phillip Iqbal - Last Filed: 06/01/17 16:10> Date of Encounter: 06/01/17 - Discharge Diagnosis (1) Pancytopenia Status: Acute (2) Weakness Status: Acute (3) Hypertension Status: Chronic Qualifiers: Hypertension type: essential hypertension Qualified Code(s): I10 - Essential (primary) hypertension (4) Physical deconditioning Status: Acute (5) ESRD (end stage renal disease) on dialysis Status: Chronic (6) Type 2 diabetes mellitus with diabetic chronic kidney disease Status: Chronic Qualifiers: 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 school teacher insulin use: with intermediate school teacher use Chronic kidney disease stage: on chronic dialysis Qualified Code(s): E11.22 - Type 2 diabetes mellitus with diabetic chronic kidney disease; N18.6 - End stage renal disease; Z79.4 - continuous churn buttermaker (current) use of insulin; Z99.2 - Dependence on renal dialysis (7) Anemia Status: Acute Qualifiers: Anemia type: due to chronic kidney disease Chronic kidney disease stage: on chronic dialysis Qualified Code(s): N18.6 - End stage renal disease; D63.1 - Anemia in chronic kidney disease; Z99.2 - Dependence on renal dialysis (8) Portal hypertension Priority: Secondary Status: Chronic (9) Splenomegaly Priority: Secondary Status: Chronic Procedures/tests Complete & Pending: Procedures Performed prior 72 hours Category Date Time Status NM liver and spleen static [NM] Routine Exams 05/31/17 12:43 Completed EV limited echocardiogram Routine Y 06/01/17 12:42 Completed Date of admission: 05/23/17 21:21 [facility] physician: [facility] Consults: 05/23/17 21:24 Consult to Nephrology [CONS] Routine Consulting Provider: Kidney & HTN Spclst JAIRO Reason for Consult: pls assist in managing this pt known to you for inpt HD, thanks Call Completed: No 05/24/17 03:37 Consult to Occupational Therapy [CONS] Routine Comment: Evaluate, develop and implement POC Reason for Consult: concerned about physical deconditioning Consult to Physical Therapy [CONS] Routine Comment: Evaluate, develop and implement POC Reason for Consult: concerned about physical deconditioning 05/24/17 08:30 Consult to Dialysis [CONS] ONCE 05/26/17 08:45 Consult to Dialysis [CONS] ONCE 05/26/17 11:16 Consult to Oncology Hematology [CONS] Routine Consulting Provider: Margarita Heller Reason for Consult: Pancytopenia Time Notified: 11:20 Call Completed: Yes 05/26/17 17:23 Consult to Smokehouse Operator [CONS] Routine Reason for SW Consult: PT/OT recommending SNF/ECF. 05/28/17 08:45 Consult to Dialysis [CONS] ONCE 05/30/17 10:45 Consult to Dialysis [CONS] ONCE Hospital course: Mr. Velarde is a 62 year old male - Time Spent with Patient Total time spent providing and/or coordinating discharge services: 40min - Constitutional Vitals: Temp Pulse Resp BP Pulse Ox 98 F 80 18 156/71 99 06/01/17 11:05 06/01/17 11:05 06/01/17 11:05 06/01/17 11:05 06/01/17 11:05 - Attending Attestation I examined this patient and my medical decision-making was reviewed with the Resident Physician on 06/01/17. I agree with the documented findings, disposition and treatment plan as described except to the extent set forth below. Mr. Velarde feels somewhat better today. He is concerned about liver/spleen. No fever or chills and vitals stable. Exam Alert. Comfortable Mucus membranes dry Heart reg No wheeze Abd soft Plan D/C after dialysis [facility]
[2017-06-01] MEDS: *HR* LORazepam 0.5 MG TABLET PO PRN (20:56)
[2017-06-02] MEDS: *HR* OxyCODONE Immed Rel 5 MG TABLET PO PRN ×2 (03:33→13:49)
[2017-06-02 05:36] LABS: Immature Granulocytes % 0.4 % (0-4)
[2017-06-02 05:38] LABS: Eosinophils % 1.8 %; Hematocrit 24.2 % (37.5-50.1); Immature Platelets 4.3 % (1.1-6.1); Lymphocytes # 0.6 K/mcL (0.6-4.6); Lymphocytes % 26.1 %; Mean Corpuscular HGB Conc 33.1 g/dL (31.6-35.5); Mean Corpuscular Hemoglobin 30.7 pg (28.0-33.3); Mean Corpuscular Volume 92.7 fL (83.0-100.0); Mean Platelet Volume 11.4 fL (9.4-12.4); Monocytes # 0.3 K/mcL (0.0-1.3); Monocytes % 11.1 %; Neutrophils # 1.4 K/mcL (1.6-8.9); Platelet Count 82 K/mcL (140-400); Red Blood Count 2.61 M/mcL (4.19-5.50); Red Cell Distribution Width 14.5 % (11.5-14.5); Segmented Neutrophils % 60.6 %
[2017-06-02 05:47] LABS: Calcium 9.2 mg/dL (8.6-10.8); Potassium 4.6 mEq/L (3.5-4.5)
[2017-06-02] MEDS: *HR* Heparin 5,000 UNIT/ML VIAL SQ SCH ×2 (06:40→13:49)
[2017-06-02] MEDS: Insulin LISPRO 300 UNITS/3 ML VIAL SQ SCH ×4 (08:08→12:15)
[2017-06-02] MEDS: Aspirin 81 MG TAB.CHEW PO SCH (08:09)
[2017-06-02] MEDS: Calcium Acetate 667 MG CAPSULE PO SCH ×2 (08:09→12:16)
[2017-06-02] MEDS: Folic Acid 1 MG TABLET PO SCH (08:09)
[2017-06-02] MEDS: Gabapentin 300 MG CAPSULE PO SCH (08:09)
[2017-06-02] MEDS: Furosemide 40 MG TABLET PO SCH (08:09)
[2017-06-02] MEDS: Insulin DETEMIR 100 UNIT/ML X5UNITS SQ SCH (08:13)
[2017-06-02] MEDS ORDERED: Darbepoetin 100 MCG/0.5 ML SYRINGE SQ SCH (08:15)
--- NOTE | 2017-06-02 08:15 | Nephrology Progress Note ---
Date of Encounter: 06/02/17 Time of Encounter: 08:14 - Assessment and Plan (1) ESRD (end stage renal disease) on dialysis Current Visit: Yes Status: Chronic The patient will undergo dialysis today. He will receive Aranesp for his anemia. He will be discharged following dialysis today. (2) Weakness Current Visit: Yes Status: Acute (3) Hypotension Current Visit: Yes Status: Acute Qualifiers: Hypotension type: unspecified hypotension type Qualified Code(s): I95.9 - Hypotension, unspecified Subjective Interval history: Patient reports she is feeling better. He is scheduled to be discharged home following dialysis. Objective - Vital Signs Vital signs: Vital Signs Temp Pulse Resp BP Pulse Ox 06/02/17 07:33 97.4 F L 78 21 149/74 97 06/02/17 03:00 97.6 F 79 16 138/73 98 06/01/17 23:13 97.5 F L 84 18 139/70 96 06/01/17 20:54 98 F 84 18 141/67 97 06/01/17 16:26 98 F 82 18 153/70 98 06/01/17 11:05 98 F 80 18 156/71 99 Intake and Output 06/01/17 06/02/17 06/02/17 23:59 07:59 15:59 Output Total 800 / 800 925 / 925 Balance -800 / -800 -925 / -925 Output: Urine 800 / 800 925 / 925 Other: Weight 104.3 kg Blood Glucose* 195 287 Patient Weight 06/02/17 23:59 Weight 104.3 kg - General Appearance Exam: Patient is sitting on the edge of the bed eating breakfast. He is alert and oriented. Lungs essentially clear to auscultation. Heart regular rate and rhythm. Abdomen is benign. There is minimal lower extremity swelling. There is an AV fistula in the left upper extremity. - Lab 06/02/17 04:37 06/02/17 04:37 Most recent lab results Calcium 9.2 mg/dL (8.6-10.8) 06/02/17 04:37 Phosphorus 5.4 mg/dL (2.3-4.7) H 05/24/17 06:40 Magnesium 1.8 mg/dL (1.6-2.6) 05/25/17 21:03 Consult Discharge Plan - Plan Additional Instructions: Take all medications as prescribed: Continue your home medications Start iron daily Start folic acid daily Follow up with your primary care physician in 1-2 weeks Follow up with Heme/Onc in 2-4 weeks Return to ER if return of symptoms, development of fever, chest pain, or shortness of breath Referrals: Kevan Carrizales MD [Partnered Physician] - [place],PCP [Primary Care Provider] - (Patient will more than likley go to [facility] ) Prescriptions: Ferrous Sulfate 325 mg PO DAILY@0800 #30 tab
[2017-06-02] MEDS ORDERED: 0.9 % Sodium Chloride 250 ML IVC PRN (08:16)
--- NOTE | 2017-06-02 10:10 | Internal Med Progress Note ---
<Sarah Graves - Last Filed: 06/02/17 10:07> Date of Encounter: 06/02/17 Time of Encounter: 10:00 - Assessment and plan (1) Pancytopenia Current Visit: Yes Status: Acute Assessment and plan: Patient has chronic pancytopenia. There is no sign of active bleeding. Hem/ Onc consult appreciated. -Leukopenia and cytopenia are most likely secondary to splenic sequestration related to cirrhosis. -The patient has a normocytic normochromic anemia that is constant with anemia of chronic kidney disease with concurrent with a iron deficiency. 10/26/2014 Bone marrow aspiration and biopsy (@[facility])- no primary or secondary pathology, anemia of chronic disease(increase iron storage, decrease sideroblasts), pancytopenia, no immunophenotypic abnormalities. 06/19/2016 (@[facility]) Colonoscopy- normal EGD- severe gastritis, ulcers in body of stomach, polyp in antrum. Biopsies taken from all of the previous. Report not sent over. Ct abd/pelvis demonstrate no acute process. Mild splenomegaly from portal hypertension given cirrhosis. Negative for respiratory infection panel, Parvovirus, and Monospot. No intervention needed currently Ferrous sulfate and folate supplements continued. Patient is to follow up with PCP. (2) ESRD (end stage renal disease) on dialysis Current Visit: Yes Status: Chronic Assessment and plan: Hemodialysis Friday per nephrology Avoid potentially nephrotoxic agents Nephrology following (3) Type 2 diabetes mellitus with diabetic chronic kidney disease Current Visit: Yes Status: Chronic Assessment and plan: Blood glucose has improved, but is still elevated Levemir was increased to 20 units BID diabetic diet Insulin sliding scale Continued monitoring with regular POC glucose checks Upon discharge patient is to follow up with PCP for better glucose control Qualifiers: Diabetes mellitus [facility] insulin use: with [facility] use Chronic kidney disease stage: on chronic dialysis Qualified Code(s): E11.22 - Type 2 diabetes mellitus with diabetic chronic kidney disease; N18.6 - End stage renal disease; Z79.4 - intermediate manager (current) use of insulin; Z99.2 - Dependence on renal dialysis (4) Hypertension Current Visit: Yes Status: Chronic Assessment and plan: Hypertension is at goal for this patient. We will continue to monitor. Echocardiogram: normal left systolic function LVEF 55-60%, atypical septal motion consistent with prior cardiac surgery. - Unchanged from 04/26/2017 LVEF 60% Qualifiers: Hypertension type: essential hypertension Qualified Code(s): I10 - Essential (primary) hypertension (5) Physical deconditioning Current Visit: Yes Status: Acute Assessment and plan: Patient continues to have weakness and lethargy. Possibly a result of his multiple medical conditions and pancytopenia PT and OT recommend that patient be discharged to SNF to address weakness strengthen balance Patient stated he wants to go home. - Subjective Interval history: Patient getting dialysis and laying in bed comfortably answering questions appropriately. Patient said he feels much better today and is looking forward to going home. He denies chest pain, shortness of breath, nausea, vomiting, abdominal pain, palpitations, change in vision. - Constitutional Vitals: Temp Pulse Resp BP Pulse Ox 97.4 F L 78 21 149/74 97 06/02/17 07:33 06/02/17 07:33 06/02/17 07:33 06/02/17 09:44 06/02/17 07:33 General appearance: Present: A&O X 3, pleasant, answers questions appropriately - Head Head exam: Present: atraumatic, normocephalic - Eye Eye exam: Present: conjuntiva pink. Absent: scleral icterus - Neck Neck exam general surgery: Present: supple, trachea midline - Respiratory Respiratory exam: Present: CTAB. Absent: rales, respiratory distress, stridor, wheezes - Cardiovascular Cardiovascular exam: Present: RRR, +S1, +S2. Absent: gallop - GI/Abdominal GI/Abdominal exam: Present: normal bowel sounds, soft. Absent: guarding, tenderness - Extremities Exam Extremities exam: Present: normal inspection, radial pulses palpable and symetrical. Absent: calf tenderness, tenderness - Back Exam Back exam: Present: normal inspection. Absent: rash noted, tenderness - Skin Skin exam: Present: dry, intact Internal Medicine: Result - Labs CBC & Chem 7: 06/02/17 04:37 06/02/17 04:37 Labs: Short CBC 06/02/17 Range/Units 04:37 WBC 2.3 L (4.3-11.1) K/mcL Hgb 8.0 L (12.9-16.9) g/dL Hct 24.2 L (37.5-50.1) % Plt Count 82 L (140-400) K/mcL Neutrophils # 1.4 L (1.6-8.9) K/mcL BMP 06/02/17 04:37 Sodium 133 L Potassium 4.6 H Chloride 97 L Carbon Dioxide 31 H BUN 43 H Creatinine 4.94 H Glucose 284 H Calcium 9.2 - Impressions Impressions Liver/Spleen Scan Nuclear Medicine 05/31/17 12:43 IMPRESSION: Splenomegaly and borderline colloid shift. D/ / Dominick Miller MD / Dominick Miller MD Interpreting Provider: Dominick Miller MD Consult Discharge Plan - Plan Additional Instructions: Take all medications as prescribed: Continue your home medications Start iron daily Start folic acid daily Follow up with your primary care physician in 1-2 weeks Follow up with Heme/Onc in 2-4 weeks Return to ER if return of symptoms, development of fever, chest pain, or shortness of breath Referrals: Kevan Carrizales MD [Partnered Physician] - 06/23/17 8:00 am (Please follow up as schedule...) VENECIA,PCP [Primary Care Provider] - 06/10/17 2:15 pm ( Please follow up as schedule.....) Prescriptions: Ferrous Sulfate 325 mg PO DAILY@0800 #30 tab <Phillip Iqbal - Last Filed: 06/02/17 16:17> Date of Encounter: 06/02/17 - Assessment and plan (1) Pancytopenia Current Visit: Yes Status: Acute (2) Weakness Current Visit: Yes Status: Acute (3) Hypertension Current Visit: Yes Status: Chronic Qualifiers: Hypertension type: essential hypertension Qualified Code(s): I10 - Essential (primary) hypertension (4) Physical deconditioning Current Visit: Yes Status: Acute (5) ESRD (end stage renal disease) on dialysis Current Visit: Yes Status: Chronic (6) Type 2 diabetes mellitus with diabetic chronic kidney disease Current Visit: Yes Status: Chronic Qualifiers: Diabetes mellitus buttermaker insulin use: with buttermaker use Chronic kidney disease stage: on chronic dialysis Qualified Code(s): E11.22 - Type 2 diabetes mellitus with diabetic chronic kidney disease; N18.6 - End stage renal disease; Z79.4 - senior care (current) use of insulin; Z99.2 - Dependence on renal dialysis (7) Anemia Current Visit: No Status: Acute Qualifiers: Anemia type: due to chronic kidney disease Chronic kidney disease stage: on chronic dialysis Qualified Code(s): N18.6 - End stage renal disease; D63.1 - Anemia in chronic kidney disease; Z99.2 - Dependence on renal dialysis (8) Portal hypertension Current Visit: Yes Status: Chronic (9) Splenomegaly Current Visit: Yes Status: Chronic - Constitutional Vitals: Temp Pulse Resp BP Pulse Ox 98.3 F 78 18 125/68 97 06/02/17 14:21 06/02/17 07:33 06/02/17 14:21 06/02/17 14:21 06/02/17 07:33 Internal Medicine: Result - Labs CBC & Chem 7: 06/02/17 04:37 06/02/17 04:37 Labs: Short CBC 06/02/17 Range/Units 04:37 WBC 2.3 L (4.3-11.1) K/mcL Hgb 8.0 L (12.9-16.9) g/dL Hct 24.2 L (37.5-50.1) % Plt Count 82 L (140-400) K/mcL Neutrophils # 1.4 L (1.6-8.9) K/mcL BMP 06/02/17 04:37 Sodium 133 L Potassium 4.6 H Chloride 97 L Carbon Dioxide 31 H BUN 43 H Creatinine 4.94 H Glucose 284 H Calcium 9.2 - Attending Attestation I examined this patient and my medical decision-making was reviewed with the Resident Physician on 06/02/17. I agree with the documented findings, disposition and treatment plan as described except to the extent set forth below. Mr. Velarde had no issues overnight. He has had dialysis today. No dyspnea. No fever or chills. Vitals are stable. Plan for d/c today after dialysis. He is currently moderate risk due to his comorbid conditions. Exam Alert. Comfortable Mucus membranes dry Heart reg No wheeze No edema Abd soft I/P 1. Pancytopenia - numbers appear to be stable 2. ESRD on HD Pt does not want to go to rehab or have HHC. Plan d/c today Follow up with PCP and Dr. Castaneda.
[2017-06-02] MEDS: *HR* LORazepam 0.5 MG TABLET PO PRN (13:50)
[2017-06-02 14:23] VITALS: BP 125/68
[2017-06-02] MEDS ORDERED: 0.9 % Sodium Chloride 2,000 ML ONE (14:44)
== END 2017-06-02 16:13 | disposition home or self-care (01) | DRG 808 ==
LOC: 2ANU → SUATTDRO 21:21
PROVIDERS: ADMIT Family Medicine; ATTEND Internal Medicine

== ENCOUNTER 2017-06-04 13:46 | Inpatient (IN) ==
[2017-06-04] MEDS ORDERED: *HR* LORazepam 2 MG/ML VIAL IVP ONE (14:33)
[2017-06-04] MEDS ORDERED: Furosemide 40 MG/4 ML VIAL IVP ONE (14:33)
--- NOTE | 2017-06-04 15:26 | Emergency Department Note ---
Disposition Clinical Impression: Acute CHF (congestive heart failure), Chest pain, rule out acute myocardial infarction, Elevated troponin Disposition: Admitted As Inpatient Condition: Good [facility] - Forms: ED Satisfaction Letter Time of Disposition: 13:00 SOB HPI - General Chief Complaint: ED Shortness of Breath/Dyspnea Stated Complaint: Luis Fernando, Chest pressure (Troponin elevated) Time Seen by Provider: 06/04/17 14:08 Source: patient, EMS Limitations: no limitations Nursing Notes Reviewed: Yes Vital Signs Reviewed: Yes - History of Present Illness 62-year-old male presents with concerns of difficulty in breathing and chest pain. Patient states he was just discharged from the hospital 5 days ago and has since had increasing shortness of breath. Patient feels like he is fluid overloaded. [facility] of breath which has been increasing over the past 2 days. The shortness of breath with his with exertion. He also had associated chest pain today. He did not become nauseated or have diaphoresis however he feels weak and fatigued. Initial troponin was elevated 0.09. This could be due to the patient's renal failure however it is mildly elevated compared to what it was on previous evaluations. He has no chest pain in the emergency department. Patient states he does produce some urine and takes 60 mg of Lasix 3 times a day. - Related Data Home Medications Medication Instructions Recorded Confirmed Atorvastatin Calcium [Lipitor] 20 mg PO HS 10/04/16 05/23/17 Calcium Acetate [Phos-LO] 1,334 mg PO TIDWM 10/04/16 05/23/17 Gabapentin [Neurontin] 300 mg PO BID 10/04/16 05/23/17 Loratadine [Claritin] 10 mg PO DAILY 10/04/16 05/23/17 Pantoprazole Sodium [Protonix] 40 mg PO DAILY 10/04/16 05/23/17 Paroxetine [Paxil] 20 mg PO QAM 10/04/16 05/23/17 Ranitidine HCl [Heartburn Relief] 150 mg PO DAILY 10/04/16 05/23/17 Tamsulosin [Flomax] 0.4 mg PO DAILY 10/04/16 05/23/17 Insulin ASPART [NovoLOG] 35 unit SQ BIDWM 04/25/17 05/23/17 OxyCODONE Immed Rel [Roxicodone 5 10 mg PO Q6HR PRN 04/26/17 05/23/17 MG] Furosemide [Lasix] 60 mg PO BID 05/23/17 05/23/17 Isosorbide MONOnitrate (24 HR) 30 mg PO DAILY 05/23/17 [Imdur] Nitroglycerin [Nitrostat] 0.4 mg SL Q5M PRN 05/23/17 amLODIPine [Norvasc] 5 mg PO DAILY 05/23/17 05/23/17 Previous Rx's Medication Instructions Recorded Aspirin 81 mg PO DAILY #30 tab.chew 10/24/16 Metoprolol [Lopressor] 50 mg PO BID #60 tablet 10/24/16 Clopidogrel [Plavix] 75 mg PO DAILY #30 tablet 04/28/17 Docusate [Colace] 100 mg PO DAILY 06/01/17 Ferrous Sulfate 325 mg PO DAILY@0800 #30 tab 06/01/17 Folic Acid 2 mg PO DAILY tab 06/01/17 Allergies Allergy/AdvReac Type Severity Reaction Status Date / Time codeine Allergy Unknown Hives Verified 10/04/16 16:06 Methadone Allergy Unknown Rash Verified 10/04/16 16:06 Penicillins [PCN] Allergy Unknown Rash Verified 10/04/16 16:06 promethazine [From Phenergan] Allergy Unknown Hives Verified 10/04/16 16:06 trazodone Allergy Unknown Itching Verified 10/04/16 16:06 All systems ED: reviewed and negative except as stated. Constitutional: Denies: fever, chills, weakness Cardiovascular: Reports: chest pain, dyspnea on exertion, edema. Denies: palpitations, syncope Respiratory: Reports: dyspnea. Denies: cough, wheezes, hemoptysis Gastrointestinal: Denies: abdominal pain, nausea, vomiting, diarrhea Integumentary: Denies: rash Neurological: Denies: headache, weakness, numbness Past Medical History - Past Medical History Attestation: Yes The following information was validated with the patient. Source: patient Medical history: Reports: coronary artery disease, diabetes, GERD, hyperlipidemia, hypertension, renal disease Surgical history: Reports: angioplasty/stent, coronary bypass (CABG) (2v CABG in 1998, redo 3v CABG in 2002), orthopedic, other (Surgery on right knee x4, scope on left knee x1), other (Amputation of left great toe, re-attachment of right hand after accident at work) Psychiatric history: Reports: anxiety, depression - Social History Smoking Status: Never smoker Smokeless Tobacco Status: No Alcohol use: Reports: none Drug use: Reports: none Physical Exam General: Alert and in no acute distress Skin: Warm, dry, intact Head: Normocephalic and atraumatic Neck: Supple, trachea midline and no tenderness Cardiovascular: RRR, no murmur, normal perfusion Respiratory: Crackles in the bilateral lung bases. Otherwise breath sounds present bilaterally. Musculoskeletal: Normal strength, no tenderness, swelling or deformity GI: Soft, nontender, nondistended. Bowel sounds present Neuro: A&O to person, place, time and situation. No focal deficits noted on exam Psychiatric: cooperative and appropriate mood and affect. - General Limitations: no limitations General appearance: alert, in no apparent distress Course Vital Signs Temperature 98.6 F 06/04/17 13:48 Pulse Rate 86 06/04/17 13:48 Respiratory Rate 18 06/04/17 13:48 Blood Pressure 132/71 06/04/17 13:48 O2 Sat by Pulse Oximetry 94 06/04/17 13:48 Temperature 98.6 F 06/04/17 13:48 Pulse Rate 84 06/04/17 14:40 Respiratory Rate 18 06/04/17 14:40 Blood Pressure 132/71 06/04/17 14:40 O2 Sat by Pulse Oximetry 98 06/04/17 14:40 Oxygen Delivery Oxygen Delivery Nasal Cannula Shortness of Breath/Dyspnea - [facility] Narrative Medical decision making narrative: Laboratory testing an x-ray performed at the [facility] which show troponin of 0.09, white blood cell count of 4.1, hemoglobin 9.5, lactate of 0.9, AST 20, ALC 21, calcium 9.1, albumin 3.7, sodium 139, potassium 4.1, chloride 101, glucose 231, BUNs and 35, creatinine 4.71, estimated GFR 13.5, BNP 12,300 . I spoke with Dr. Hallman with nephrology who agreed patient would be able to receive dialysis today. EKG in the emergency department shows mild ST depression of lead 1 however it does not show any evidence of STEMI and has a normal sinus rhythm with a rate of 86. Patient will be admitted to the hospitalist for further care and evaluation of his chest pain, for dialysis and further care. - Medical Records Medical records reviewed: Yes I reviewed the patient's medical records. - Lab Data Lab results reviewed: Yes I reviewed the patient's lab results. - Radiology Data Radiology results reviewed: Yes I reviewed the patient's radiology results.
[2017-06-04] MEDS ORDERED: Acetaminophen 325 MG TABLET PO PRN (17:38)
[2017-06-04] MEDS ORDERED: Ondansetron 4 MG/2 ML VIAL IVP PRN (17:38)
[2017-06-04] MEDS ORDERED: Naloxone 0.4 MG/ML INJ IVP PRN (17:38)
[2017-06-04] MEDS ORDERED: D5% in Water 1,000 ML IVC PRN (17:46)
[2017-06-04] MEDS ORDERED: Dextrose Gel 15 GM PO PRN ×2 (17:46)
[2017-06-04] MEDS ORDERED: *HR* Dextrose 50 % in Water (Syg) 50 ML SYRINGE IVP PRN (17:46)
[2017-06-04] MEDS ORDERED: Ipratropium/Albuterol Neb 3 ML IH PRN (17:49)
[2017-06-04] MEDS ORDERED: Nitroglycerin 0.4 MG TAB.SUBL SL PRN (18:13)
[2017-06-04] MEDS: Insulin LISPRO 300 UNITS/3 ML VIAL SQ SCH (18:26)
[2017-06-04] MEDS: Pantoprazole 40 MG VIAL IVP SCH (18:26)
[2017-06-04 18:36] LABS: Basophils % 0.3 %; Eosinophils % 0.9 %; Hematocrit 28.5 % (37.5-50.1); Hemoglobin 9.4 g/dL (12.9-16.9); Immature Granulocytes % 0.9 % (0-4); Lymphocytes # 0.6 K/mcL (0.6-4.6); Lymphocytes % 17.6 %; Mean Corpuscular Hemoglobin 30.9 pg (28.0-33.3); Mean Corpuscular Volume 93.8 fL (83.0-100.0); Mean Platelet Volume 11.4 fL (9.4-12.4); Monocytes # 0.2 K/mcL (0.0-1.3); Monocytes % 6.7 %; Neutrophils # 2.4 K/mcL (1.6-8.9); Platelet Count 114 K/mcL (140-400); Red Blood Count 3.04 M/mcL (4.19-5.50); Segmented Neutrophils % 73.6 %
[2017-06-04 18:44] LABS: INR 1.1; Prothrombin Time 12.2 Seconds (9.4-12.1)
[2017-06-04 18:47] LABS: Activated Partial Thrombo Time 24.3 Seconds (26.0-36.0); Calcium 9.5 mg/dL (8.6-10.8); Potassium 4.4 mEq/L (3.5-4.5)
[2017-06-04 18:51] LABS: Chol/HDL Ratio 4.5 (0-4.9); Magnesium 1.9 mg/dL (1.6-2.6)
--- NOTE | 2017-06-04 19:28 | Internal Med History&Physical ---
<ShirleypiyushdeniseBenigno umaña - Last Filed: 06/04/17 20:08> Date of Encounter: 06/04/17 Time of Encounter: 16:00 Assessment and Plan (1) Chest pain Current visit: Yes Status: Acute Patient presents with acute chest pressure that he states is across his sub- sternal region of his chest. He states the pressure is there with and without exertion. Patient was seen previously in April for similar symptoms when he was given an echocardiogram and stress test. Echocardiogram shows LVEF of 55-60%. Stress test showed gated EF of 55% which may be unreliable and borderline evidence of transient ischemic dilation. EKG dated today shows sinus rhythm with ST deviation moderate T-wave abnormality. Consider lateral ischemia and inferior ischemia. Patient to have troponins trended x2. Patient will be placed on continuous cardiac telemetry with supplemental O2. Nitroglycerin PRN ordered. Will continue patient's statin and anti-hypertensive medications. Patient to be monitored closely for signs of increasing cardiac and/or respiratory distress. Qualifiers: Chest pain type: other chest pain Qualified Code(s): R07.89 - Other chest pain; R07.8 - Other chest pain (2) SOB (shortness of breath) Current visit: Yes Status: Acute Patient presents with acute SOB related to current chest pain symptoms and symptoms correlating to acute exacerbation of CHF. Will place patient on supplemental O2 with titration if SPO2 < 92% and continuous SpO2 monitoring. DuoNebs ordered Q4 PRN. Patient to be placed as falls precautions/[id number] /bed rest with bathroom privileges with assist only due to current SOB. Will monitor patient and vital signs. (3) Acute CHF (congestive heart failure) Current visit: Yes Status: Acute Patient presents with acute CHF exacerbation symptoms which may be related to current need for dialysis. Patient was given IV Lasix in the ED but only produced a small amount of urine. Currently patient does not have pitting edema in lower extremities. Fluid restriction of 1.5 L daily ordered. Will continue patient's Lasix 60 mg by mouth daily BID. Will monitor I&O and daily weight. Qualifiers: Congestive heart failure type: unspecified congestive heart failure type Qualified Code(s): I50.9 - Heart failure, unspecified (4) Elevated troponin Current visit: Yes Status: Acute Patient presents with initial troponin of 0.09 when he was admitted to the ED. Will trend troponins x2 and place patient on continuous cardiac telemetry. Patient's last echocardiogram and stress test were last month. Follow-up labs ordered. (5) Anemia Current visit: Yes Status: Chronic Patient presents with chronic anemia related to current renal failure. Patient reports when he was hospitalized previously, he was transfused with 3 units of packed RBCs. Will monitor patient's H/H. Patient's current Hgb is 9.4 today, up from 8.0 from 06/02/17. Will continue to monitor patient for signs of bleeding or anemia. Qualifiers: Anemia type: due to chronic kidney disease Chronic kidney disease stage: on chronic dialysis Qualified Code(s): N18.6 - End stage renal disease; D63.1 - Anemia in chronic kidney disease; Z99.2 - Dependence on renal dialysis (6) Diabetes mellitus Current visit: Yes Status: Chronic Patient presents with history of chronic diabetes requiring insulin dependency. Patient's current diabetes medications in order low-dose correction insulin sliding scale as well as hypoglycemia protocol. Blood glucose monitoring ACHS. A1c ordered. 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 Patient was supposed to receive dialysis today but became short of breath at the [facility] and came to the ED instead. He is consult with Dr. Campoverde is aware of patient' s required dialysis. Dr. Campoverde to see patient tomorrow (06/05/17). Renal diet ordered with fluid restriction of 1.5 L daily. (8) Hypertension Current visit: Yes Status: Chronic Patient presents with history of chronic hypertension. Will continue patient's Norvasc and Lopressor. Will monitor patient's vital signs. Qualifiers: Hypertension type: essential hypertension Qualified Code(s): I10 - Essential (primary) hypertension (9) HLD (hyperlipidemia) Current visit: Yes Status: Chronic Patient presents with history of chronic hyperlipidemia. Lipid panel ordered. Continue patient's Lipitor. Qualifiers: Hyperlipidemia type: pure hypercholesterolemia Qualified Code(s): E78.00 - Pure hypercholesterolemia, unspecified; E78.0 - Pure hypercholesterolemia (10) DVT prophylaxis Current visit: Yes Status: Acute Patient to be placed on DVT prophylaxis due to current admission protocol and current bed rest status. Bilateral SCDs ordered for patient's LEs. Internal Medicine - H&P: HPI Chief complaint: Shortness of breath, chest pressure Admitted From: Emergency Dept Plans for Post Hospital Care: Home History of present illness: Mr. Velarde is a 62 year old male who presents from the ED with chief complaint of shortness of breath and chest pressure that he describes as located at the sternum of his chest. Patient reports he was discharged from the hospital 5 days ago for similar symptoms. Patient states he feels as if he is fluid overloaded. Patient currently requires dialysis Friday, Friday, and Friday. He went to the [facility] today to complete paperwork and became extremely short of breath with chest pressure and missed his dialysis appointment to come to the ED. Initial troponin was 0.09. Consult with Dr. Castaneda placed in the ED. She will require dialysis as today is Friday. Patient denies nausea, vomiting, fever, chills, recent illness, weakness, palpitations, syncope, numbness, or tingling. Patient has a history of coronary artery disease, diabetes with insulin dependency, GERD, HLD, HTN, renal disease requiring dialysis. Patient is at high risk for cardiac event based on current risk factors of CAD, diabetes, HLD, and HTN as well as current symptomatology. Patient currently exhibits symptoms which correlate with CHF. Patient placed as inpatient status with continuous cardiac telemetry, trend troponins 2, supplemental O2 with titration if SpO2 < 92%, continuous SpO2 monitoring, aspirin therapy, nitroglycerin PRN, and bed rest status. We will also continue patient's statin and anti-hypertensive medications. Patient to be monitored closely for signs of increasing cardiac and/or respiratory distress. Time spent with patient > 40 minutes. Past Med Surg Social Fam HX - Past Medical History Source: patient Medical history: coronary artery disease, diabetes, GERD, hyperlipidemia, hypertension, renal disease Psychiatric history: anxiety, depression - Past Surgical History Surgical History: angioplasty/stent, coronary bypass (CABG) (2v CABG in 1998, redo 3v CABG in 2002), orthopedic, other (Surgery on right knee x4, scope on left knee x1), other (Amputation of left great toe, re-attachment of right hand after accident at work) - Social History Smoking Status: Never smoker Smokeless Tobacco Status: No Alcohol use: none Drug use: none Occupational status: previously employed Current living situation: Home Activity Level: Independent ambulation Recent Out of Country Travel Within the Last 8 Weeks: No Exposure or Possible Exposure to Illness During Travel: No - Family History Father History Unknown: Yes Adopted: [place]: Ephraim Velarde Age: 81 Race: Family Member Ethnicity: Non- Living Status: Still Living Brother Family Member Ethnicity: Non- Living Status: Still Living Hx Family Cardiac Disorders: Yes (VT) Sister Family Member Ethnicity: Non- Living Status: Still Living Hx Family Endocrine Disorder: Yes (DM) Mother Adopted: [place]: Jessica Yury Age: 82 Race: Family Member Ethnicity: Non- Living Status: Still Living Hx Family Cardiac Disorders: Yes (VT, Pacemaker) Hx Family Respiratory Disorders: Yes (COPD) Hx Family Endocrine Disorder: Yes (DM) Internal Medicine - H&P: Meds Atorvastatin Calcium [Lipitor] 20 mg PO HS 10/04/16 [History] Calcium Acetate [Phos-LO] 1,334 mg PO TIDWM 10/04/16 [History] Gabapentin [Neurontin] 300 mg PO BID 10/04/16 [History] Loratadine [Claritin] 10 mg PO DAILY 10/04/16 [History] Pantoprazole Sodium [Protonix] 40 mg PO DAILY 10/04/16 [History] Paroxetine [Paxil] 20 mg PO QAM 10/04/16 [History] Ranitidine HCl [Heartburn Relief] 150 mg PO DAILY 10/04/16 [History] Tamsulosin [Flomax] 0.4 mg PO DAILY 10/04/16 [History] Aspirin 81 mg PO DAILY #30 tab.chew 10/24/16 [Rx] Insulin ASPART [NovoLOG] 35 unit SQ BIDWM 04/25/17 [History] OxyCODONE Immed Rel [Roxicodone 5 MG] 10 mg PO Q6HR PRN 04/26/17 [History] Clopidogrel [Plavix] 75 mg PO DAILY #30 tablet 04/28/17 [Rx] Furosemide [Lasix] 60 mg PO BID 05/23/17 [History] amLODIPine [Norvasc] 5 mg PO DAILY 05/23/17 [History] Docusate [Colace] 100 mg PO DAILY 06/01/17 [Rx] Ferrous Sulfate 325 mg PO DAILY@0800 #30 tab 06/01/17 [Rx] Folic Acid 2 mg PO DAILY tab 06/01/17 [Rx] Metoprolol [Lopressor] 50 mg PO BID 06/04/17 [History] Allergies codeine Allergy (Unknown, Verified 10/04/16 16:06) Hives Methadone Allergy (Unknown, Verified 10/04/16 16:06) Rash Penicillins [PCN] Allergy (Unknown, Verified 10/04/16 16:06) Rash promethazine [From Phenergan] Allergy (Unknown, Verified 10/04/16 16:06) Hives trazodone Allergy (Unknown, Verified 10/04/16 16:06) Itching All Systems PM: A 10-system review of systems was performed and is negative for pertinent findings except as documented above in the HPI. - Constitutional Constitutional: no chills, no fever(s), no night sweats - EENT Eyes: no change in vision, no discharge, no pain, no photophobia Ears: no ear discharge, no ear pain, no tinnitus Nose, mouth and throat: no dysphagia, no nasal discharge, no neck pain, no sore throat - Breasts Breasts: as per HPI - Cardiovascular Cardiovascular ROS IM: as per HPI, chest pain, dyspnea, edema - Respiratory Respiratory: as per HPI, dyspnea - Gastrointestinal Gastrointestinal: no abdominal pain, no diarrhea, no hematemesis, no hematochezia, no melena, no nausea, no vomiting - Genitourinary Genitourinary ROS male: as per HPI, difficulty urinating (Due to renal failure requiring dialysis. Patient states he still makes urine but in small amounts. ) - Musculoskeletal Musculoskeletal ROS IM: no numbness, no tingling - Integumentary Integumentary IM: no rash, no unusual bruising - Neurological Neurological ROS: no confusion, no convulsions, no focal weakness, no numbness, no tingling, no tremor(s) - Psychiatric Psychiatric: as per HPI - Endocrine Endocrine IM: as per HPI - Hematologic/Lymphatic Hematologic/Lymphatic: no easy bruising - Allergic/Immunologic Allergic/Immunologic: as per HPI - Constitutional Vitals: Temp Pulse Resp BP Pulse Ox 97.5 F L 84 16 148/78 97 06/04/17 17:42 06/04/17 17:42 06/04/17 17:42 06/04/17 17:42 06/04/17 17:42 General appearance: Present: cooperative, A&O X 3, pleasant, no acute distress, obese, answers questions appropriately - Head Head exam: Present: atraumatic, normocephalic - Eye Eye exam: Present: PERRL, conjuntiva pink, sclera anicteric Pupils: Present: PERRL - ENT ENT exam: Present: normal exam, normal external ear exam - Neck Neck exam general surgery: Present: supple, trachea midline. Absent: lymphadenopathy - Respiratory Respiratory exam: Present: CTAB. Absent: accessory muscle use, rales, rhonchi, wheezes - Cardiovascular Cardiovascular exam: Present: RRR, +S1, +S2. Absent: diastolic murmur, gallop, rubs, systolic murmur - GI/Abdominal GI/Abdominal exam: Present: normal bowel sounds, soft, no peritoneal signs. Absent: distended, tenderness - Rectal Rectal exam: Present: deferred - Additional comments: exam deferred. - Extremities Exam Extremities exam: Present: warm, radial pulses palpable and symetrical. Absent : calf tenderness, cyanotic, pedal edema - Back Exam Back exam: Present: normal inspection - Neurological Exam Neurological exam: Present: CN II-XII intact, oriented X3, no focal deficits. Absent: pronater drift, facial droop, speech deficit - Psychiatric Psychiatric exam: Present: normal affect, normal mood - Skin Skin exam: Present: dry, intact Internal Med - H&P Results - Labs CBC & Chem 7: 06/04/17 17:54 06/04/17 17:54 Labs: Short CBC 06/04/17 Range/Units 17:54 WBC 3.3 L (4.3-11.1) K/mcL Hgb 9.4 L (12.9-16.9) g/dL Hct 28.5 L (37.5-50.1) % Plt Count 114 L (140-400) K/mcL Neutrophils # 2.4 (1.6-8.9) K/mcL BMP 06/04/17 17:54 Sodium 137 Potassium 4.4 Chloride 101 Carbon Dioxide 29 BUN 39 H Creatinine 4.64 H Glucose 373 H Calcium 9.5 Cardiac Enzymes 06/04/17 Range/Units 17:54 Troponin I 0.05 H* (0-0.03) ng/mL - EKG Data EKG shows normal: sinus rhythm - EKG Data Prior EKG available for review: yes When compared to previous EKG: there is no significant change Interpretation IM: suggestive of ischemia EKG comments: 06/04/17 19:38 EKG dated 05/25/17 shows sinus rhythm with ST deviation and moderate T-wave abnormality. Consider inferior ischemia, LVH. EKG dated 06/04/17 shows sinus rhythm with ST deviation and moderate T-wave abnormality. Consider lateral ischemia and inferior ischemia. - VTE Documentation of Mechanical Device: Intermittent pneumatic compression device <Faizan León - Last Filed: 06/04/17 20:52> Date of Encounter: 06/04/17 Internal Medicine - H&P: HPI History of present illness: Mr. Velarde is a 62 year old male All Systems PM: A 10-system review of systems was performed and is negative for pertinent findings except as documented above in the HPI. - Constitutional Vitals: Temp Pulse Resp BP Pulse Ox 98.1 F 93 16 146/75 97 06/04/17 19:33 06/04/17 19:33 06/04/17 19:33 06/04/17 19:33 06/04/17 19:33 Internal Med - H&P Results - Labs CBC & Chem 7: 06/04/17 17:54 06/04/17 17:54 Labs: Short CBC 06/04/17 Range/Units 17:54 WBC 3.3 L (4.3-11.1) K/mcL Hgb 9.4 L (12.9-16.9) g/dL Hct 28.5 L (37.5-50.1) % Plt Count 114 L (140-400) K/mcL Neutrophils # 2.4 (1.6-8.9) K/mcL BMP 06/04/17 17:54 Sodium 137 Potassium 4.4 Chloride 101 Carbon Dioxide 29 BUN 39 H Creatinine 4.64 H Glucose 373 H Calcium 9.5 Cardiac Enzymes 06/04/17 Range/Units 17:54 Troponin I 0.05 H* (0-0.03) ng/mL - Attending Attestation I have seen and examined pt. I discussed with ADMISSION SPECIALIST regarding the management plan. I agree with the documentation. Pt may has fluid overload, nephrology informed, plan for HD. Will track 3 sets of troponin for chest pain and elevated troponin.
[2017-06-04] MEDS: Furosemide 20 MG TABLET PO SCH (20:30)
[2017-06-04] MEDS: Gabapentin 300 MG CAPSULE PO SCH (20:30)
[2017-06-04] MEDS: *HR* OxyCODONE Immed Rel 5 MG TABLET PO PRN (20:45)
[2017-06-04] MEDS ORDERED: Insulin LISPRO 300 UNITS/3 ML VIAL SQ SCH (21:00)
[2017-06-05 01:39] LABS: Basophils % 0.3 %; Eosinophils # 0.1 K/mcL (0.0-0.6); Eosinophils % 1.4 %; Hematocrit 27.4 % (37.5-50.1); Immature Granulocytes % 0.6 % (0-4); Lymphocytes # 0.9 K/mcL (0.6-4.6); Lymphocytes % 23.9 %; Mean Corpuscular HGB Conc 32.8 g/dL (31.6-35.5); Mean Corpuscular Hemoglobin 30.9 pg (28.0-33.3); Mean Corpuscular Volume 94.2 fL (83.0-100.0); Mean Platelet Volume 11.5 fL (9.4-12.4); Monocytes # 0.3 K/mcL (0.0-1.3); Monocytes % 8.2 %; Neutrophils # 2.3 K/mcL (1.6-8.9); Platelet Count 109 K/mcL (140-400); Red Blood Count 2.91 M/mcL (4.19-5.50); Segmented Neutrophils % 65.6 %
[2017-06-05 01:49] LABS: Calcium 9.2 mg/dL (8.6-10.8); Potassium 4.6 mEq/L (3.5-4.5)
[2017-06-05 01:50] LABS: Hemoglobin A1C 8.3 %
[2017-06-05] MEDS ORDERED: Insulin LISPRO 300 UNITS/3 ML VIAL SQ SCH ×3 (07:30→21:00)
[2017-06-05] MEDS: Furosemide 20 MG TABLET PO SCH ×2 (08:43→21:01)
[2017-06-05] MEDS: Calcium Acetate 667 MG CAPSULE PO SCH ×3 (08:43→16:58)
[2017-06-05] MEDS: Gabapentin 300 MG CAPSULE PO SCH ×2 (08:44→21:01)
[2017-06-05] MEDS: Loratadine 10 MG TABLET PO SCH (08:45)
[2017-06-05] MEDS: Aspirin 81 MG TAB.CHEW PO SCH (08:45)
[2017-06-05] MEDS: Insulin LISPRO 300 UNITS/3 ML VIAL SQ SCH ×4 (08:46→17:03)
[2017-06-05] MEDS: Pantoprazole 40 MG VIAL IVP SCH (08:47)
[2017-06-05] MEDS: *HR* OxyCODONE Immed Rel 5 MG TABLET PO PRN ×2 (08:55→21:00)
[2017-06-05] MEDS ORDERED: amLODIPine 5 MG TABLET PO SCH (09:00)
--- NOTE | 2017-06-05 10:06 | Nephrology Consult Note ---
Date of Encounter: 06/05/17 Time of Encounter: 09:25 Assessment and Plan (1) ESRD (end stage renal disease) on dialysis Current Visit: Yes Status: Chronic Chest pressure, continuous cardiac monitoring. ESRD- will do HD today, orders given. Fluid restriction. History of Present Illness - Reason for Consult end stage renal disease - History of Present Illness Mr. Velarde is a 62 year old male with ESRD who dialyzes at [place] on MWF, last dialysis this past Friday which was his day of hospital discharge for weakness, fatigue and chronic pancytopenia. Other PMH- coronary artery disease, CABG, Stent, diabetes, GERD, hyperlipidemia, hypertension. Mr. Velarde states he was at the [facility] yesterday dropping off paperwork and became increasingly short of breath which he had noticed for past two days and chest pressure. He presented to their ER to be evaluated and was transferred to [place]. He missed his scheduled dialysis yesterday r/t this event. EKG in ER no evidence of STEMI. He received Lasix in ER with small output of urine. This morning he continues to have weakness, states chest pressure "almost gone. " He can reproduce with movement. Past Med Surg Social Fam HX - Past Medical History Medical history: coronary artery disease, diabetes, GERD, hyperlipidemia, hypertension, renal disease Psychiatric history: anxiety, depression - Past Surgical History Surgical History: angioplasty/stent, coronary bypass (CABG) (2v CABG in 1998, redo 3v CABG in 2002), orthopedic, other (Surgery on right knee x4, scope on left knee x1), other (Amputation of left great toe, re-attachment of right hand after accident at work) - Social History Smoking Status: Never smoker Smokeless Tobacco Status: No Alcohol use: none Drug use: none - Family History Father History Unknown: Yes Adopted: [place]: Ephraim Velarde Age: 81 Race: Family Member Ethnicity: Non- Living Status: Still Living Hx Family Cardiac Disorders: Yes (Coronary artery disease?) Hx Family Respiratory Disorders: No Hx Family Cancer: Yes Hx Family GI Disorders: No Hx Family Genitourinary Disorders: No Hx Family Endocrine Disorder: Yes (brothers, sister) Hx Family Musculoskeletal Disorders: Yes Hx Family Neuromuscular Disorders: No Hx Family Neurologic Disorders: No Hx Family HEENT Disorders: No Hx Family Autoimmune Disorders: No Hx Family Reproductive Disorders: No Hx Family Psychosocial Disorders: Yes (Biplar disorder) Hx Family Medical Disorders: No Brother Family Member Ethnicity: Non- Living Status: Still Living Hx Family Cardiac Disorders: Yes (LA) Sister Family Member Ethnicity: Non- Living Status: Still Living Hx Family Endocrine Disorder: Yes (DM) Mother Adopted: [place]: Jessica Cotton Age: 82 Race: Family Member Ethnicity: Non- Living Status: Still Living Hx Family Cardiac Disorders: Yes (LA, Pacemaker) Hx Family Respiratory Disorders: Yes (COPD) Hx Family Cancer: Yes Hx Family GI Disorders: No Hx Family Genitourinary Disorders: No Hx Family Endocrine Disorder: Yes (DM) Hx Family Musculoskeletal Disorders: Yes (Arthritis) Hx Family Neuromuscular Disorders: No Hx Family Neurologic Disorders: No Hx Family HEENT Disorders: No Hx Family Autoimmune Disorders: No Hx Family Reproductive Disorders: No Hx Family Psychosocial Disorders: No Hx Family Medical Disorders: No Medications and Allergies Atorvastatin Calcium [Lipitor] 20 mg PO HS 10/04/16 [History] Calcium Acetate [Phos-LO] 1,334 mg PO TIDWM 10/04/16 [History] Gabapentin [Neurontin] 300 mg PO BID 10/04/16 [History] Loratadine [Claritin] 10 mg PO DAILY 10/04/16 [History] Pantoprazole Sodium [Protonix] 40 mg PO DAILY 10/04/16 [History] Paroxetine [Paxil] 20 mg PO QAM 10/04/16 [History] Ranitidine HCl [Heartburn Relief] 150 mg PO DAILY 10/04/16 [History] Tamsulosin [Flomax] 0.4 mg PO DAILY 10/04/16 [History] Aspirin 81 mg PO DAILY #30 tab.chew 10/24/16 [Rx] Insulin ASPART [NovoLOG] 35 unit SQ BIDWM 04/25/17 [History] OxyCODONE Immed Rel [Roxicodone 5 MG] 10 mg PO Q6HR PRN 04/26/17 [History] Clopidogrel [Plavix] 75 mg PO DAILY #30 tablet 04/28/17 [Rx] Furosemide [Lasix] 60 mg PO BID 05/23/17 [History] amLODIPine [Norvasc] 5 mg PO DAILY 05/23/17 [History] Docusate [Colace] 100 mg PO DAILY 06/01/17 [Rx] Ferrous Sulfate 325 mg PO DAILY@0800 #30 tab 06/01/17 [Rx] Folic Acid 2 mg PO DAILY tab 06/01/17 [Rx] Metoprolol [Lopressor] 50 mg PO BID 06/04/17 [History] Allergies codeine Allergy (Unknown, Verified 10/04/16 16:06) Hives Methadone Allergy (Unknown, Verified 10/04/16 16:06) Rash Penicillins [PCN] Allergy (Unknown, Verified 10/04/16 16:06) Rash promethazine [From Phenergan] Allergy (Unknown, Verified 10/04/16 16:06) Hives trazodone Allergy (Unknown, Verified 10/04/16 16:06) Itching Review of Systems All Systems: reviewed and no additional remarkable complaints except as stated Exam - Vital Signs Vital signs: Initial Vital Signs Temp Pulse Resp BP Pulse Ox 98.6 F 86 18 132/71 94 06/04/17 13:48 06/04/17 13:48 06/04/17 13:48 06/04/17 13:48 06/04/17 13:48 Vital Signs - Last 8 Hours Temp Pulse Resp BP Pulse Ox 06/05/17 06:44 97.6 F 66 18 125/70 97 06/05/17 03:49 97.9 F 62 16 121/69 98 Intake and Output 06/04/17 06/05/17 06/05/17 23:59 07:59 15:59 Intake Total 0 / 0 120 / 120 Output Total 500 / 500 200 / 200 Balance -500 / -500 -200 / -200 120 / 120 Intake: Oral 0 / 0 120 / 120 Output: Urine 500 / 500 200 / 200 Other: Meal Breakfast Percent of Meal Consumed 25% Weight 101.8 kg Blood Glucose* 380 310 Patient Weight 06/05/17 23:59 Weight 101.8 kg - General Appearance General appearance: well-developed, well-nourished, appears started age EENT: mucous membranes moist Neck: no JVD, no carotid bruit Respiratory: clear Cardiology: edema, regular rate, regular rhythm Additional Comments: 2/6 systolic murmur - Dialysis Access Dialysis Vascular Access: Arteriovenous Fistula thrill: Yes bruit: Yes Gastrointestinal: normoactive bowel sounds, no tenderness Integumentary: warm and dry Neurologic: alert and oriented x3 Psychiatric: mood/affect appropriate, cooperative Results - Lab Results 06/05/17 00:44 06/05/17 00:44 Most recent lab results Calcium 9.2 mg/dL (8.6-10.8) 06/05/17 00:44 Phosphorus 3.0 mg/dL (2.3-4.7) 06/04/17 17:54 Magnesium 1.9 mg/dL (1.6-2.6) 06/04/17 17:54 Consult Discharge Plan - Plan [facility]errals: [facility] [Primary Care Provider] -
[2017-06-05] MEDS: Insulin DETEMIR 100 UNIT/ML X5UNITS SQ SCH (12:14)
[2017-06-05] MEDS ORDERED: 0.9 % Sodium Chloride 250 ML IVC PRN (12:24)
[2017-06-05] MEDS ORDERED: 0.9 % Sodium Chloride 1,000 ML PRIME SCH (12:45)
--- NOTE | 2017-06-05 15:05 | Electrocardiograph Report ---
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
--- NOTE | 2017-06-05 20:10 | Internal Med Progress Note ---
Date of Encounter: 06/05/17 Time of Encounter: 19:00 - Assessment and plan (1) Chest pain Current Visit: Yes Status: Acute Assessment and plan: Patient presents with left-sided chest pain. Last C was in Oct 2016 and showed patent 2/2 grafts. He was seen here in April for similar chest pain symptoms and had an echocardiogram and stress test. Echocardiogram shows LVEF of 55-60%. Stress test was unremarkable. Now, troponins are adynamic 0.05 and 0.04. EKG was reviewed. Patient is asymptomatic. continue cardiac telemetry. add imdur. if no recurrent chest pain , i will dc in am. Qualifiers: Chest pain type: other chest pain Qualified Code(s): R07.89 - Other chest pain; R07.8 - Other chest pain (2) Elevated troponin Current Visit: Yes Status: Acute Assessment and plan: adynamic. secondary to ESRD. (3) ESRD (end stage renal disease) on dialysis Current Visit: Yes Status: Chronic Assessment and plan: appreciate nephrology input. dialysis. (4) Hypertension Current Visit: Yes Status: Chronic Assessment and plan: controlled. continue home meds Qualifiers: Hypertension type: essential hypertension Qualified Code(s): I10 - Essential (primary) hypertension (5) Type 2 diabetes mellitus with diabetic chronic kidney disease Current Visit: No Status: Chronic Assessment and plan: iss. diabetic diet. 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 he had dialysis this morning. no complains. - Constitutional Vitals: Temp Pulse Resp BP Pulse Ox 97.6 F 66 14 124/65 98 06/05/17 19:13 06/05/17 19:13 06/05/17 19:13 06/05/17 19:13 06/05/17 19:13 General appearance: Present: cooperative, A&O X 3, pleasant, no acute distress, obese, answers questions appropriately - Neck Neck exam general surgery: Present: supple, trachea midline. Absent: lymphadenopathy - Respiratory Respiratory exam: Present: CTAB - Cardiovascular Cardiovascular exam: Present: RRR - GI/Abdominal GI/Abdominal exam: Present: normal bowel sounds, soft. Absent: distended, tenderness - Extremities Exam Extremities exam: Absent: pedal edema - Back Exam Back exam: Absent: CVA tenderness (L), CVA tenderness (R) - Neurological Exam Neurological exam: Present: alert, oriented X3, no focal deficits. Absent: facial droop, speech deficit - Skin Skin exam: Absent: rash Internal Medicine: Result - Labs CBC & Chem 7: 06/05/17 00:44 06/05/17 00:44 Labs: Short CBC 06/05/17 Range/Units 00:44 WBC 3.6 L (4.3-11.1) K/mcL Hgb 9.0 L (12.9-16.9) g/dL Hct 27.4 L (37.5-50.1) % Plt Count 109 L (140-400) K/mcL Neutrophils # 2.3 (1.6-8.9) K/mcL BMP 06/05/17 00:44 Sodium 136 Potassium 4.6 H Chloride 101 Carbon Dioxide 30 H BUN 43 H Creatinine 4.76 H Glucose 339 H Calcium 9.2 Cardiac Enzymes 06/05/17 06/05/17 Range/Units 00:44 06:07 Troponin I 0.04 H* 0.04 H* (0-0.03) ng/mL - ABG Interpretation ABG results: PT/INR, D-dimer PT 12.2 Seconds (9.4-12.1) H 06/04/17 17:54 - VTE Documentation of Mechanical Device: Intermittent pneumatic compression device Consult Discharge Plan - Plan [facility]errals: [facility] [Primary Care Provider] - 06/10/17 2:15 pm
[2017-06-06 05:28] LABS: Basophils % 0.3 %; Eosinophils # 0.1 K/mcL (0.0-0.6); Eosinophils % 1.6 %; Hematocrit 26.4 % (37.5-50.1); Hemoglobin 8.6 g/dL (12.9-16.9); Immature Granulocytes % 0.3 % (0-4); Lymphocytes # 0.8 K/mcL (0.6-4.6); Mean Corpuscular HGB Conc 32.6 g/dL (31.6-35.5); Mean Corpuscular Hemoglobin 30.6 pg (28.0-33.3); Mean Platelet Volume 11.4 fL (9.4-12.4); Monocytes # 0.3 K/mcL (0.0-1.3); Monocytes % 10.1 %; Neutrophils # 1.9 K/mcL (1.6-8.9); Platelet Count 100 K/mcL (140-400); Red Blood Count 2.81 M/mcL (4.19-5.50); Red Cell Distribution Width 14.9 % (11.5-14.5); Segmented Neutrophils % 60.7 %
[2017-06-06 05:43] LABS: Magnesium 1.9 mg/dL (1.6-2.6)
[2017-06-06] MEDS ORDERED: Isosorbide MONOnitrate (24 HR) 30 MG TAB.ER.24H PO SCH (09:00)
[2017-06-06] MEDS: Gabapentin 300 MG CAPSULE PO SCH (09:06)
[2017-06-06] MEDS: Calcium Acetate 667 MG CAPSULE PO SCH ×3 (09:06→18:49)
[2017-06-06] MEDS: Loratadine 10 MG TABLET PO SCH (09:06)
[2017-06-06] MEDS: Aspirin 81 MG TAB.CHEW PO SCH (09:06)
[2017-06-06] MEDS: Furosemide 20 MG TABLET PO SCH (09:06)
[2017-06-06] MEDS: Insulin LISPRO 300 UNITS/3 ML VIAL SQ SCH ×3 (09:08→18:48)
[2017-06-06] MEDS: Pantoprazole 40 MG VIAL IVP SCH (09:08)
[2017-06-06] MEDS: Insulin DETEMIR 100 UNIT/ML X5UNITS SQ SCH (09:08)
[2017-06-06] MEDS: *HR* OxyCODONE Immed Rel 5 MG TABLET PO PRN ×2 (09:15→17:51)
[2017-06-06] MEDS ORDERED: 0.9 % Sodium Chloride 250 ML IVC PRN (09:19)
[2017-06-06] MEDS ORDERED: 0.9 % Sodium Chloride 1,000 ML PRIME SCH (09:30)
--- NOTE | 2017-06-06 09:43 | Nephrology Progress Note ---
Date of Encounter: 06/06/17 Time of Encounter: 09:25 - Assessment and Plan (1) ESRD (end stage renal disease) on dialysis Current Visit: Yes Status: Chronic ESRD- Will dialyze again today, keeping MWF schedule. Orders given. Subjective Interval history: Laying in bed, states feels much better, stronger. Objective - Vital Signs Vital signs: Vital Signs Temp Pulse Resp BP Pulse Ox 06/06/17 09:20 100 06/06/17 07:00 98 F 61 13 103/62 99 06/06/17 03:23 97.6 F 58 15 95/57 97 06/05/17 23:06 98.1 F 66 13 133/75 96 06/05/17 19:13 97.6 F 66 14 124/65 98 06/05/17 16:52 97.7 F 67 18 118/71 95 06/05/17 15:46 98.3 F 18 126/69 06/05/17 14:45 110/54 06/05/17 14:30 106/69 06/05/17 14:15 106/52 06/05/17 14:00 112/63 06/05/17 13:45 117/59 06/05/17 13:30 111/59 06/05/17 13:15 114/59 06/05/17 13:00 108/60 06/05/17 12:45 105/59 06/05/17 12:30 109/57 06/05/17 12:15 115/61 06/05/17 12:00 116/66 06/05/17 11:45 124/59 06/05/17 11:30 122/65 06/05/17 11:15 97.6 F 18 126/70 Intake and Output 06/05/17 06/06/17 06/06/17 23:59 07:59 15:59 Intake Total 570 / 570 0 / 0 470 / 470 Output Total 3250 / 3250 0 / 0 Balance -2680 / -2680 0 / 0 470 / 470 Intake: Oral 570 / 570 0 / 0 470 / 470 Output: Urine 250 / 250 0 / 0 Total Dialysis Output 3000 / 3000 Other: Meal Dinner Breakfast Percent of Meal Consumed 100% 100% Weight 101.2 kg Blood Glucose* 340 322 Patient Weight 06/06/17 23:59 Weight 101.2 kg - General Appearance General appearance: Present: well-developed, well-nourished, appears started age EENT: Present: mucous membranes moist Neck: Present: no JVD Respiratory: Present: clear Cardiology: Present: no edema, regular rate, regular rhythm Gastrointestinal: Present: normoactive bowel sounds, no tenderness Integumentary: Present: warm and dry Neurologic: Present: alert and oriented x3 Psychiatric: Present: mood/affect appropriate, cooperative - Lab 06/06/17 04:40 06/06/17 04:40 Most recent lab results Calcium 9.0 mg/dL (8.6-10.8) 06/06/17 04:40 Phosphorus 3.0 mg/dL (2.3-4.7) 06/04/17 17:54 Magnesium 1.9 mg/dL (1.6-2.6) 06/06/17 04:40 - VTE Documentation of Mechanical Device: Intermittent pneumatic compression device Consult Discharge Plan - Plan Referrals: [facility] [Primary Care Provider] - 06/10/17 2:15 pm
--- NOTE | 2017-06-06 11:09 | Discharge Summary ---
Date of Encounter: 06/07/17 Time of Encounter: 11:06 - Discharge Diagnosis (1) Chest pain Priority: Primary Status: Acute Qualifiers: Chest pain type: other chest pain Qualified Code(s): R07.89 - Other chest pain; R07.8 - Other chest pain (2) Elevated troponin Priority: Primary Status: Acute (3) ESRD (end stage renal disease) on dialysis Priority: Secondary Status: Chronic (4) Hypertension Priority: Secondary Status: Chronic Qualifiers: Hypertension type: essential hypertension Qualified Code(s): I10 - Essential (primary) hypertension (5) Type 2 diabetes mellitus with diabetic chronic kidney disease Priority: Secondary Status: Chronic Qualifiers: 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 Chronic kidney disease stage: on chronic dialysis Qualified Code(s): E11.22 - Type 2 diabetes mellitus with diabetic chronic kidney disease; N18.6 - End stage renal disease; 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; Z99.2 - Dependence on renal dialysis - Discharge Medications Prescriptions: Isosorbide MONOnitrate (24 HR) [Imdur] 30 mg PO DAILY #30 Home Medications: Atorvastatin Calcium [Lipitor] 20 mg PO HS 10/04/16 [History] Calcium Acetate [Phos-LO] 1,334 mg PO TIDWM 10/04/16 [History] Gabapentin [Neurontin] 300 mg PO BID 10/04/16 [History] Loratadine [Claritin] 10 mg PO DAILY 10/04/16 [History] Pantoprazole Sodium [Protonix] 40 mg PO DAILY 10/04/16 [History] Paroxetine [Paxil] 20 mg PO QAM 10/04/16 [History] Ranitidine HCl [Heartburn Relief] 150 mg PO DAILY 10/04/16 [History] Tamsulosin [Flomax] 0.4 mg PO DAILY 10/04/16 [History] Aspirin 81 mg PO DAILY #30 tab.chew 10/24/16 [Rx] Insulin ASPART [NovoLOG] 35 unit SQ BIDWM 04/25/17 [History] OxyCODONE Immed Rel [Roxicodone 5 MG] 10 mg PO Q6HR PRN 04/26/17 [History] Clopidogrel [Plavix] 75 mg PO DAILY #30 tablet 04/28/17 [Rx] Furosemide [Lasix] 60 mg PO BID 05/23/17 [History] Ferrous Sulfate 325 mg PO DAILY@0800 #30 tab 06/01/17 [Rx] Folic Acid 2 mg PO DAILY tab 06/01/17 [Rx] Metoprolol [Lopressor] 50 mg PO BID 06/04/17 [History] Docusate [Colace] 100 mg PO DAILY PRN #0 06/06/17 [Rx] Isosorbide MONOnitrate (24 HR) [Imdur] 30 mg PO DAILY #30 06/06/17 [Rx] Allergies/Adverse Reactions: Allergies codeine Allergy (Unknown, Verified 10/04/16 16:06) Hives Methadone Allergy (Unknown, Verified 10/04/16 16:06) Rash Penicillins [PCN] Allergy (Unknown, Verified 10/04/16 16:06) Rash promethazine [From Phenergan] Allergy (Unknown, Verified 10/04/16 16:06) Hives trazodone Allergy (Unknown, Verified 10/04/16 16:06) Itching Procedures/tests Complete & Pending: Procedures Performed prior 72 hours Category Date Time Status ECG 12 lead ECG [ECG] Routine Y 06/04/17 13:53 Completed Date of admission: 06/04/17 16:19 [facility] physician[facility] Consults: 06/05/17 12:30 Consult to Dialysis [CONS] ONCE 06/06/17 09:30 Consult to Dialysis [CONS] ONCE - Patient Status Disposition: Home, Self-Care Condition: Good Functional capacity at discharge: independent ambulation Overall status at discharge: patient is progressing back to baseline - Discharge Instructions Instructions: Heart Failure (DC), Chest Pain (DC), Diabetes Mellitus Type 2 in Adults (DC), Chronic Hypertension (DC), Anemia (GEN) Follow Up With: [facility] [Primary Care Provider] - 06/10/17 2:15 pm Additional Instructions: check your blood pressure twice daily, same time in the morning and evening. write down numbers and bring record to doctor's appointment. follow a strict diabetic diet, check your blood sugars before meals and at bedtime. write down numbers and bring record to doctor's appointment. - Diet and Activity Activity: resume usual activities as tolerated Diet: diabetic diet, low fat, low cholesterol, low salt diet Interval History: patient denies any chest pain or shortness of breath. he complains of arthritis pain in knees. Hospital course: Mr. Velarde is a 62 year old male with past medical history of diabetes, hypertension, end-stage renal disease on dialysis and CAD who presented with a chief complaint of left-sided chest pain. Last C was in Oct 2016 and showed patent 2/2 grafts. He was seen here in April for similar chest pain symptoms and had an echocardiogram and stress test. Echocardiogram shows LVEF of 55-60%. Stress test was unremarkable. During this admission, troponins are adynamic 0.05 and 0.04. EKG was unremarkable. Patient remained asymptomatic. Imdur was added. Plan: Follow with primary care physician next week. - Time Spent with Patient Total time spent providing and/or coordinating discharge services: - Constitutional Vitals: Temp Pulse Resp BP Pulse Ox 98 F 61 13 103/62 94 06/06/17 07:00 06/06/17 07:00 06/06/17 07:00 06/06/17 07:00 06/06/17 10:43 General appearance: Present: cooperative, A&O X 3, pleasant, no acute distress, obese, answers questions appropriately - Respiratory Respiratory exam: Present: CTAB - Cardiovascular Cardiovascular exam: Present: RRR - GI/Abdominal GI/Abdominal exam: Present: normal bowel sounds, soft. Absent: distended, tenderness - Back Exam Back exam: Absent: CVA tenderness (L), CVA tenderness (R) - Neurological Exam Neurological exam: Present: alert, strengths equal and symetr throughout. Absent: facial droop, speech deficit - Skin Skin exam: Absent: rash - VTE Documentation of Mechanical Device: Intermittent pneumatic compression device
[2017-06-06] MEDS ORDERED: 0.9 % Sodium Chloride 2,000 ML ONE (12:23)
[2017-06-06 19:53] VITALS: BP 136/50
== END 2017-06-06 20:45 | disposition home or self-care (01) | DRG 313 ==
LOC: EMEROO 13:46 → SUATTDRO 16:19 → 2ANU 16:19
PROVIDERS: ADMIT Internal Medicine; ATTEND Internal Medicine

== ENCOUNTER 2017-09-15 20:27 | Inpatient (IN) ==
[2017-09-15] MEDS ORDERED: Ondansetron 4 MG/2 ML VIAL IVP ONE (20:39)
--- NOTE | 2017-09-15 20:44 | Emergency Department Note ---
Disposition Clinical Impression: Hyperglycemia, Elevated troponin, ESRD (end stage renal disease) CHF exacerbation Qualifiers: Congestive heart failure type: unspecified congestive heart failure type Qualified Code(s): I50.9 - Heart failure, unspecified Nausea and vomiting Qualifiers: Vomiting type: unspecified Vomiting Intractability: non-intractable Qualified Code(s): R11.2 - Nausea with vomiting, unspecified Disposition: Admitted As Inpatient Condition: Good General Adult HPI - General Chief complaint: ED Nausea/Vomiting/Diarrhea Stated complaint: N/V after dialysis Time Seen by Provider: 09/15/17 20:33 Source: patient, EMS Limitations: no limitations Nursing Notes Reviewed: Yes Vital Signs Reviewed: Yes - History of Present Illness HPI Narrative: 62-year-old male past medical history of coronary arterial disease with history of bypass, end-stage renal disease on dialysis. He presents after having dialysis today with nausea and vomiting. He started to have the nausea and near the end of his dialysis session. He has had a couple episodes of vomiting but mostly his nausea. After he started vomiting he did develop some epigastric discomfort. He is not having any chest pain. He denies having a fever. He still makes urine and is still urinating without difficulty and is having normal bowel movements. He denies a history of nausea and vomiting after dialysis. He also states for the last 2-3 weeks he has been feeling short of breath when he lays down flat. He does not feel short of breath when he sitting upright. Radiation: non-radiation Pain Severity: moderate Pain Scale: 7 Consistency: constant Improves with: nothing Worsens with: nothing Associated symptoms: Reports: denies other symptoms Treatments Prior to Arrival: none - Related Data Home Medications Medication Instructions Recorded Confirmed Atorvastatin Calcium [Lipitor] 20 mg PO HS 10/04/16 06/04/17 Calcium Acetate [Phos-LO] 1,334 mg PO TIDWM 10/04/16 06/04/17 Gabapentin [Neurontin] 300 mg PO BID 10/04/16 06/04/17 Loratadine [Claritin] 10 mg PO DAILY 10/04/16 06/04/17 Pantoprazole Sodium [Protonix] 40 mg PO DAILY 10/04/16 06/04/17 Paroxetine [Paxil] 20 mg PO QAM 10/04/16 06/04/17 Ranitidine HCl [Heartburn Relief] 150 mg PO DAILY 10/04/16 06/04/17 Tamsulosin [Flomax] 0.4 mg PO DAILY 10/04/16 06/04/17 Insulin ASPART [NovoLOG] 35 unit SQ BIDWM 04/25/17 06/04/17 OxyCODONE Immed Rel [Roxicodone 5 10 mg PO Q6HR PRN 04/26/17 06/04/17 MG] Furosemide [Lasix] 60 mg PO BID 05/23/17 06/04/17 Metoprolol [Lopressor] 50 mg PO BID 06/04/17 06/04/17 Previous Rx's Medication Instructions Recorded Aspirin 81 mg PO DAILY #30 tab.chew 10/24/16 Clopidogrel [Plavix] 75 mg PO DAILY #30 tablet 04/28/17 Ferrous Sulfate 325 mg PO DAILY@0800 #30 tab 06/01/17 Folic Acid 2 mg PO DAILY tab 06/01/17 Docusate [Colace] 100 mg PO DAILY PRN #0 06/06/17 Isosorbide MONOnitrate (24 HR) 30 mg PO DAILY #30 06/06/17 [Imdur] Allergies Allergy/AdvReac Type Severity Reaction Status Date / Time codeine Allergy Unknown Hives Verified 10/04/16 16:06 Methadone Allergy Unknown Rash Verified 10/04/16 16:06 Penicillins [PCN] Allergy Unknown Rash Verified 10/04/16 16:06 promethazine [From Phenergan] Allergy Unknown Hives Verified 10/04/16 16:06 trazodone Allergy Unknown Itching Verified 10/04/16 16:06 All systems ED: reviewed and negative except as stated. Constitutional: Denies: fever ENT ED: Denies: throat pain Cardiovascular: Denies: chest pain Respiratory: Denies: cough Musculoskeletal: Denies: back pain Integumentary: Denies: rash Endocrine: Denies: fatigue Past Medical History - Past Medical History Medical history: Reports: coronary artery disease, diabetes, GERD, hyperlipidemia, hypertension, renal disease Surgical history: Reports: angioplasty/stent, coronary bypass (CABG) (2v CABG in 1998, redo 3v CABG in 2002), orthopedic, other (Surgery on right knee x4, scope on left knee x1), other (Amputation of left great toe, re-attachment of right hand after accident at work) Psychiatric history: Reports: anxiety, depression - Social History Smoking Status: Never smoker Smokeless Tobacco Status: No Alcohol use: Reports: none Drug use: Reports: none Physical Exam - General Limitations: no limitations General appearance: alert, in no apparent distress - Head Head exam: atraumatic - Eye Eye exam: Present: normal appearance, PERRL - ENT ENT exam: normal exam, normal oropharynx - Neck Neck exam: Present: normal inspection - Chest Chest inspection: Present: normal inspection - Respiratory Respiratory exam: Present: normal lung sounds bilaterally. Absent: respiratory distress - Cardiovascular Cardiovascular exam: Present: regular rate, normal rhythm - Abdominal Exam Abdominal exam: Present: soft, tenderness (Mild epigastric). Absent: guarding, rebound - Extremities Exam Extremities exam: Present: normal inspection - Neurological Exam Neurological exam: Present: alert, oriented X3 - Psychiatric Psychiatric exam: Present: normal affect, normal mood - Skin Skin exam: Present: warm, dry Course Course Narrative: We will treat him symptomatically and look for electrolyte derangement. In addition I will get a chest x-ray and a BNP due to his long-standing shortness of breath with laying supine. CXR shows signs of CHF. He is symptomatic with orthopnea. Not hypoxic. Will give lasix as he still makes urine and put on nitropaste. He is in no distress. Will obtain CT abd/pelvis due to n/v. EF 55-60% in May of this year. He does have hyperglycemia but is not acidotic. He does have ketones but no elevated lactate. He is not in DKA, but we will go ahead and give some IV insulin. He does not appear to be dehydrated and I am giving him some Lasix and nitroglycerin due to his congestive heart failure. CT scan of the belly is negative. He will be admitted observation due to his congestive heart failure, hyperglycemia, nausea or vomiting. Vital Signs Temperature 97.7 F 09/15/17 20:31 Pulse Rate 80 09/15/17 20:31 Respiratory Rate 16 09/15/17 20:31 Blood Pressure 151/78 09/15/17 20:31 O2 Sat by Pulse Oximetry 92 09/15/17 20:31 Temperature 97.5 F L 09/16/17 03:28 Pulse Rate 67 09/16/17 03:28 Respiratory Rate 16 09/16/17 03:28 Blood Pressure 142/64 09/16/17 03:28 O2 Sat by Pulse Oximetry 98 09/16/17 03:28 Oxygen Delivery Oxygen Delivery Room Air Medical Decision Making - Medical Records Medical records reviewed: Yes I reviewed the patient's medical records. - Lab Data Lab results reviewed: Yes I reviewed the patient's lab results. Result diagrams: 09/16/17 02:30 09/16/17 02:30 Lab Results 09/15/17 09/15/17 09/15/17 Range/Units 21:14 21:14 22:02 WBC 2.7 L (4.3-11.1) K/mcL RBC 2.91 L (4.19-5.50) M/mcL Hgb 9.1 L (12.9-16.9) g/dL Hct 26.7 L (37.5-50.1) % MCV 91.8 (83.0-100.0) fL MCH 31.3 (28.0-33.3) pg MCHC 34.1 (31.6-35.5) g/dL RDW 13.4 (11.5-14.5) % Plt Count 80 L (140-400) K/mcL MPV 11.5 (9.4-12.4) fL Immature Gran % 0.4 (0-4) % Seg Neutrophils % 75.7 % Lymphocytes % 14.6 % Monocytes % 8.2 % Eosinophils % 0.7 % Basophils % 0.4 % Neutrophils # 2.0 (1.6-8.9) K/mcL Lymphocytes # 0.4 L (0.6-4.6) K/mcL Monocytes # 0.2 (0.0-1.3) K/mcL Eosinophils # 0.0 (0.0-0.6) K/mcL Basophils # 0.0 (0.0-0.2) K/mcL VBG pH (7.32-7.42) pH Units VBG pCO2 (41-51) mmHg VBG pO2 (25-50) mmHg VBG HCO3 (21-27) mEq/L Sodium 137 (136-145) mEq/L Potassium 4.7 H (3.5-4.5) mEq/L Chloride 97 L (98-109) mEq/L Carbon Dioxide 25 (19-29) mEq/L BUN 15 (8-26) mg/dL Creatinine 3.04 H (0.72-1.25) mg/dL Est GFR ( Amer) 26 L (> 60) Est GFR (Non-Af Amer) 21 L (> 60) BUN/Creatinine Ratio 5 L (6-26) Glucose 391 H (70-99) mg/dL Calculated Osmolality 301 H (280-300) Lactic Acid (0.5-2.2) mmol/L Calcium 9.3 (8.6-10.8) mg/dL Total Bilirubin 1.2 (0.2-1.2) mg/dL Direct Bilirubin 0.5 (0.0-0.5) mg/dL Indirect Bilirubin 0.7 (0.0-1.2) mg/dL AST 14 (5-34) Units/L ALT 9 (0-55) Units/L Alkaline Phosphatase 157 H (38-126) Units/L Troponin I (0-0.03) ng/mL B-Natriuretic Peptide (0-100) pg/mL Serum Total Protein 7.7 (6.0-8.3) g/dL Albumin 3.8 (3.5-5.0) g/dL Globulin 3.9 H (2.4-3.5) g/dL Albumin/Globulin Ratio 1.0 L (1.1-2.2) Lipase 38 (8-78) Units/L Beta-Hydroxybutyric Acd (0.02-0.27) mmol/L Urine Color Yellow (Yellow) Urine Clarity Clear (Clear) Urine pH 7.5 (5.0-8.0) pH Units Ur Specific [place] 1.019 (1.010-1.025) Urine Protein >=300 H (Neg-Trace) mg/dL Urine Glucose (UA) >=1000 H (Normal) mg/dL Urine Ketones Trace H (Negative) mg/dL Urine Blood Trace H (Negative) Urine Nitrite Negative (Negative) Urine Bilirubin Negative (Negative) Urine Urobilinogen Normal (Normal) mg/dL Ur Leukocyte Esterase Negative (Negative) Urine Microscopic RBC 3-5 H (0-3) per hpf Urine Microscopic WBC 0-3 (0-3) per hpf Ur Squamous Epith Cells Many H (None-Few) per lpf Urine Bacteria None Seen (None-Few) per hpf Hyaline Casts None Seen (None-Few) per lpf Ur Culture Indicated? NO (NO) 09/15/17 09/15/17 09/15/17 Range/Units 23:10 23:10 23:10 WBC (4.3-11.1) K/mcL RBC (4.19-5.50) M/mcL Hgb (12.9-16.9) g/dL Hct (37.5-50.1) % MCV (83.0-100.0) fL MCH (28.0-33.3) pg MCHC (31.6-35.5) g/dL RDW (11.5-14.5) % Plt Count (140-400) K/mcL MPV (9.4-12.4) fL Immature Gran % (0-4) % Seg Neutrophils % % Lymphocytes % % Monocytes % % Eosinophils % % Basophils % % Neutrophils # (1.6-8.9) K/mcL Lymphocytes # (0.6-4.6) K/mcL Monocytes # (0.0-1.3) K/mcL Eosinophils # (0.0-0.6) K/mcL Basophils # (0.0-0.2) K/mcL VBG pH (7.32-7.42) pH Units VBG pCO2 (41-51) mmHg VBG pO2 (25-50) mmHg VBG HCO3 (21-27) mEq/L Sodium (136-145) mEq/L Potassium (3.5-4.5) mEq/L Chloride (98-109) mEq/L Carbon Dioxide (19-29) mEq/L BUN (8-26) mg/dL Creatinine (0.72-1.25) mg/dL Est GFR ( Amer) (> 60) Est GFR (Non-Af Amer) (> 60) BUN/Creatinine Ratio (6-26) Glucose (70-99) mg/dL Calculated Osmolality (280-300) Lactic Acid 1.3 (0.5-2.2) mmol/L Calcium (8.6-10.8) mg/dL Total Bilirubin (0.2-1.2) mg/dL Direct Bilirubin (0.0-0.5) mg/dL Indirect Bilirubin (0.0-1.2) mg/dL AST (5-34) Units/L ALT (0-55) Units/L Alkaline Phosphatase (38-126) Units/L Troponin I 0.04 H* (0-0.03) ng/mL B-Natriuretic Peptide (0-100) pg/mL Serum Total Protein (6.0-8.3) g/dL Albumin (3.5-5.0) g/dL Globulin (2.4-3.5) g/dL Albumin/Globulin Ratio (1.1-2.2) Lipase (8-78) Units/L Beta-Hydroxybutyric Acd > 2.00 H (0.02-0.27) mmol/L Urine Color (Yellow) Urine Clarity (Clear) Urine pH (5.0-8.0) pH Units Ur Specific [place] (1.010-1.025) Urine Protein (Neg-Trace) mg/dL Urine Glucose (UA) (Normal) mg/dL Urine Ketones (Negative) mg/dL Urine Blood (Negative) Urine Nitrite (Negative) Urine Bilirubin (Negative) Urine Urobilinogen (Normal) mg/dL Ur Leukocyte Esterase (Negative) Urine Microscopic RBC (0-3) per hpf Urine Microscopic WBC (0-3) per hpf Ur Squamous Epith Cells (None-Few) per lpf Urine Bacteria (None-Few) per hpf Hyaline Casts (None-Few) per lpf Ur Culture Indicated? (NO) 09/15/17 09/15/17 Range/Units 23:10 23:24 WBC (4.3-11.1) K/mcL RBC (4.19-5.50) M/mcL Hgb (12.9-16.9) g/dL Hct (37.5-50.1) % MCV (83.0-100.0) fL MCH (28.0-33.3) pg MCHC (31.6-35.5) g/dL RDW (11.5-14.5) % Plt Count (140-400) K/mcL MPV (9.4-12.4) fL Immature Gran % (0-4) % Seg Neutrophils % % Lymphocytes % % Monocytes % % Eosinophils % % Basophils % % Neutrophils # (1.6-8.9) K/mcL Lymphocytes # (0.6-4.6) K/mcL Monocytes # (0.0-1.3) K/mcL Eosinophils # (0.0-0.6) K/mcL Basophils # (0.0-0.2) K/mcL VBG pH 7.42 (7.32-7.42) pH Units VBG pCO2 43 (41-51) mmHg VBG pO2 85 H (25-50) mmHg VBG HCO3 28 H (21-27) mEq/L Sodium (136-145) mEq/L Potassium (3.5-4.5) mEq/L Chloride (98-109) mEq/L Carbon Dioxide (19-29) mEq/L BUN (8-26) mg/dL Creatinine (0.72-1.25) mg/dL Est GFR ( Amer) (> 60) Est GFR (Non-Af Amer) (> 60) BUN/Creatinine Ratio (6-26) Glucose (70-99) mg/dL Calculated Osmolality (280-300) Lactic Acid (0.5-2.2) mmol/L Calcium (8.6-10.8) mg/dL Total Bilirubin (0.2-1.2) mg/dL Direct Bilirubin (0.0-0.5) mg/dL Indirect Bilirubin (0.0-1.2) mg/dL AST (5-34) Units/L ALT (0-55) Units/L Alkaline Phosphatase (38-126) Units/L Troponin I (0-0.03) ng/mL B-Natriuretic Peptide 2618 H (0-100) pg/mL Serum Total Protein (6.0-8.3) g/dL Albumin (3.5-5.0) g/dL Globulin (2.4-3.5) g/dL Albumin/Globulin Ratio (1.1-2.2) Lipase (8-78) Units/L Beta-Hydroxybutyric Acd (0.02-0.27) mmol/L Urine Color (Yellow) Urine Clarity (Clear) Urine pH (5.0-8.0) pH Units Ur Specific [place] (1.010-1.025) Urine Protein (Neg-Trace) mg/dL Urine Glucose (UA) (Normal) mg/dL Urine Ketones (Negative) mg/dL Urine Blood (Negative) Urine Nitrite (Negative) Urine Bilirubin (Negative) Urine Urobilinogen (Normal) mg/dL Ur Leukocyte Esterase (Negative) Urine Microscopic RBC (0-3) per hpf Urine Microscopic WBC (0-3) per hpf Ur Squamous Epith Cells (None-Few) per lpf Urine Bacteria (None-Few) per hpf Hyaline Casts (None-Few) per lpf Ur Culture Indicated? (NO) - Radiology Data Radiology results reviewed: Yes I reviewed the patient's radiology results. - EKG Data EKG #1 EKG attestation: Yes I reviewed and interpreted this EKG. EKG shows normal: sinus rhythm Rate: normal [place]/QRS: normal ST segment depression in: II, v5, v6 T wave inversions noted in: II, v6 When compared to previous EKG there are: no significant changes Interpretation: no acute changes Attestation Statement - Attestation Attestation: I examined this patient and my medical decision-making was reviewed with the Resident Physician. I agree with the documented findings, disposition and treatment plan as described except to the extent set forth below. Heart failure , increasing pro BNP, plan admit for cardiac consultation, possible need for echocardiogram, evaluation of nausea vomiting the setting of end-stage renal disease.
[2017-09-15 21:24] LABS: Basophils % 0.4 %; Eosinophils % 0.7 %; Hematocrit 26.7 % (37.5-50.1); Hemoglobin 9.1 g/dL (12.9-16.9); Immature Granulocytes % 0.4 % (0-4); Lymphocytes # 0.4 K/mcL (0.6-4.6); Lymphocytes % 14.6 %; Mean Corpuscular HGB Conc 34.1 g/dL (31.6-35.5); Mean Corpuscular Hemoglobin 31.3 pg (28.0-33.3); Mean Corpuscular Volume 91.8 fL (83.0-100.0); Mean Platelet Volume 11.5 fL (9.4-12.4); Monocytes # 0.2 K/mcL (0.0-1.3); Monocytes % 8.2 %; Red Blood Count 2.91 M/mcL (4.19-5.50); Red Cell Distribution Width 13.4 % (11.5-14.5); Segmented Neutrophils % 75.7 %
[2017-09-15 21:26] LABS: Platelet Count 80 K/mcL (140-400)
[2017-09-15 21:38] LABS: Albumin 3.8 g/dL (3.5-5.0); Bilirubin,Direct 0.5 mg/dL (0.0-0.5); Bilirubin,Indirect 0.7 mg/dL (0.0-1.2); Bilirubin,Total 1.2 mg/dL (0.2-1.2); Calcium 9.3 mg/dL (8.6-10.8); Globulin 3.9 g/dL (2.4-3.5); Potassium 4.7 mEq/L (3.5-4.5); Total Protein 7.7 g/dL (6.0-8.3)
[2017-09-15 22:16] LABS: Bilirubin,Urine Negative (Negative); Blood,Urine Trace (Negative); Clarity,Urine Clear (Clear); Color,Urine Yellow (Yellow); Glucose,Urine (UA) >=1000 mg/dL (Normal); Ketones,Urine Trace mg/dL (Negative); Leukocyte Esterase,Urine Negative (Negative); Nitrite,Urine Negative (Negative); PH,Urine 7.5 pH Units (5.0-8.0); Protein,Urine >=300 mg/dL (Neg-Trace); Specific Gravity,Urine 1.019 (1.010-1.025); Urobilinogen,Urine Normal (Normal)
[2017-09-15 22:18] LABS: Bacteria,Urine None Seen per hpf (None-Few); Hyaline Casts,Urine None Seen per lpf (None-Few); Squamous Epithelial Cell,Urine Many per lpf (None-Few); WBC,Urine 0-3 per hpf (0-3)
[2017-09-15] MEDS ORDERED: Furosemide 40 MG/4 ML VIAL IVP ONE (22:45)
[2017-09-15] MEDS ORDERED: Nitroglycerin 1 INCH/GM PACKET TP ONE (22:46)
[2017-09-15 23:29] LABS: VBG HCO3 28 mEq/L (21-27); VBG PCO2 43 mmHg (41-51); VBG PH 7.42 pH Units (7.32-7.42); VBG PO2 85 mmHg (25-50)
[2017-09-15] MEDS ORDERED: Insulin Regular, Human 100 UNIT/ML IV ONE (23:35)
[2017-09-15] MEDS ORDERED: *HR* OxyCODONE Immed Rel 5 MG TABLET PO ONE (23:55)
[2017-09-16] MEDS ORDERED: Naloxone 0.4 MG/ML INJ IVP PRN (01:19)
[2017-09-16] MEDS ORDERED: Ondansetron 4 MG/2 ML VIAL IVP PRN (01:19)
[2017-09-16] MEDS ORDERED: Acetaminophen 325 MG TABLET PO PRN (01:19)
[2017-09-16] MEDS ORDERED: *HR* OxyCODONE Immed Rel 5 MG TABLET PO PRN (01:34)
[2017-09-16] MEDS ORDERED: Dextrose Gel 15 GM PO PRN ×2 (01:38)
[2017-09-16] MEDS ORDERED: D5% in Water 1,000 ML IVC PRN (01:38)
--- NOTE | 2017-09-16 01:48 | Internal Med History&Physical ---
Date of Encounter: 09/16/17 Time of Encounter: 11:00 Assessment and Plan (1) Abdominal pain Current visit: Yes Status: Acute he has significant epigastric discomfort. CT abdomen showed some gallstones. I will order ultrasound of gallbladder in the morning and keep patient nothing by mouth. Due to CHF it would be difficult to start IV fluid. I will keep him on Pepcid IV. Qualifiers: Abdominal location: epigastric Qualified Code(s): R10.13 - Epigastric pain (2) Diabetic ketoacidosis Current visit: Yes Status: Acute Blood sugar elevated with beta hydroxybutyric acid also elevated. This could be due to chronic kidney disease. However he also has an anion gap. Due to CHF it would be very difficult to start IV fluid and IV insulin drip. For now I will try to treat him with subcutaneous insulin and see if it produced desired if fact. His electrolyte and beta hydroxybutyric acid will be monitored. Patient is transferred to [facility]. Qualifiers: Diabetes mellitus type: type 2 Diabetes mellitus complication detail: without coma Qualified Code(s): E13.10 - Other specified diabetes mellitus with ketoacidosis without coma (3) Bilateral pleural effusion Current visit: Yes Status: Acute Chest x-ray and CAT scan showed bilateral pleural effusion with possible underlying pneumonia. Blood culture ordered IV Zosyn as started. (4) Congestive heart failure Current visit: Yes Status: Acute Patient has history of coronary artery disease and had CHF in the past. He is a hemodialysis patient. We have restarted him on IV Lasix however he probably will need another dialysis and therefore nephrology is consulted. Dr. Rubio needs to be called in the morning. Qualifiers: Congestive heart failure type: unspecified congestive heart failure type Congestive heart failure chronicity: unspecified congestive heart failure chronicity Qualified Code(s): I50.9 - Heart failure, unspecified (5) CAD (coronary artery disease), [place] coronary artery Current visit: Yes Status: Acute History of coronary artery disease status post CABG. Troponin slightly elevated but this could be secondary to renal failure and also therefore I have ordered serial troponin to see what is the trend. EKG did not show any ST elevations. Continue beta sam and aspirin and if appear necessary nitrates can be added Qualifiers: [place] vs. transplanted heart: [place] heart Associated angina: without angina Qualified Code(s): I25.10 - Atherosclerotic heart disease of [place] coronary artery without angina pectoris (6) Nausea and vomiting Current visit: Yes Status: Acute Treat symptomatically unfortunately due to CHF IV fluid will be avoided.. Qualifiers: Vomiting type: unspecified Vomiting Intractability: non-intractable Qualified Code(s): R11.2 - Nausea with vomiting, unspecified Internal Medicine - H&P: HPI Chief complaint: Nausea / Vomitting Admitted From: Home Plans for Post Hospital Care: Home History of present illness: Mr. Velarde is a 62 year old male past medical history significant for ESRD/ dialysis, diabetes hypertension dyslipidemia and coronary artery disease status post CABG. Patient had been short of breath lately however he claims that he had dialysis today and his body weight is actually under his dry body weight. The reason he came in is mainly nausea vomiting diarrhea. Mild epigastric abdominal pain with tenderness. No fever no blood in his stools or urine or hematemesis or hemoptysis or chest pain palpitations and dizziness syncope. In ER chest x-ray was done which showed bilateral pleural effusion with atelectasis. His blood sugars are also noted elevated with elevated beta hydroxybutyric acid and positive anion gap. However venous ABG were done and pH is not too bad. Past Med Surg Social Fam HX - Past Medical History Medical history: arthritis, CHF, coronary artery disease, diabetes, GERD, hyperlipidemia, hypertension, renal disease Psychiatric history: anxiety, depression - Past Surgical History Surgical History: angioplasty/stent, coronary bypass (CABG), orthopedic, other, other - Social History Smoking Status: Never smoker Smokeless Tobacco Status: No Alcohol use: none Drug use: none - Family History Father Adopted: No Family Member Ethnicity: Non- Living Status: Still Living Hx Family Cardiac Disorders: Yes (Coronary artery disease?) Hx Family Respiratory Disorders: No Hx Family Cancer: Yes Hx Family GI Disorders: No Hx Family Endocrine Disorder: Yes (brothers, sister) Hx Family Neuromuscular Disorders: No Hx Family Neurologic Disorders: No Hx Family HEENT Disorders: No Hx Family Autoimmune Disorders: No Brother Family Member Ethnicity: Non- Living Status: Still Living Hx Family Cardiac Disorders: Yes ([place]) Sister Family Member Ethnicity: Non- Living Status: Still Living Hx Family Endocrine Disorder: Yes (DM) Mother Adopted: No Family Member Ethnicity: Non- Living Status: Still Living Hx Family Cardiac Disorders: Yes ([place], Pacemaker) Hx Family Respiratory Disorders: Yes (COPD) Hx Family Cancer: Yes Hx Family GI Disorders: No Hx Family Endocrine Disorder: Yes (DM) Hx Family Neuromuscular Disorders: No Hx Family Neurologic Disorders: No Hx Family HEENT Disorders: No Hx Family Autoimmune Disorders: No Internal Medicine - H&P: Meds Atorvastatin Calcium [Lipitor] 20 mg PO HS 10/04/16 [History] Calcium Acetate [Phos-LO] 1,334 mg PO TIDWM 10/04/16 [History] Gabapentin [Neurontin] 300 mg PO BID 10/04/16 [History] Loratadine [Claritin] 10 mg PO DAILY 10/04/16 [History] Pantoprazole Sodium [Protonix] 40 mg PO DAILY 10/04/16 [History] Paroxetine [Paxil] 20 mg PO QAM 10/04/16 [History] Ranitidine HCl [Heartburn Relief] 150 mg PO DAILY 10/04/16 [History] Tamsulosin [Flomax] 0.4 mg PO DAILY 10/04/16 [History] Aspirin 81 mg PO DAILY #30 tab.chew 10/24/16 [Rx] Insulin ASPART [NovoLOG] 35 unit SQ BIDWM 04/25/17 [History] OxyCODONE Immed Rel [Roxicodone 5 MG] 10 mg PO Q6HR PRN 04/26/17 [History] Clopidogrel [Plavix] 75 mg PO DAILY #30 tablet 04/28/17 [Rx] Furosemide [Lasix] 60 mg PO BID 05/23/17 [History] Ferrous Sulfate 325 mg PO DAILY@0800 #30 tab 06/01/17 [Rx] Folic Acid 2 mg PO DAILY tab 06/01/17 [Rx] Metoprolol [Lopressor] 50 mg PO BID 06/04/17 [History] Docusate [Colace] 100 mg PO DAILY PRN #0 06/06/17 [Rx] Isosorbide MONOnitrate (24 HR) [Imdur] 30 mg PO DAILY #30 06/06/17 [Rx] 3 Allergy/AdvReac Type Severity Reaction Status Date / Time codeine Allergy Unknown Hives Verified 10/04/16 16:06 Methadone Allergy Unknown Rash Verified 10/04/16 16:06 Penicillins [PCN] Allergy Unknown Rash Verified 10/04/16 16:06 promethazine [From Phenergan] Allergy Unknown Hives Verified 10/04/16 16:06 trazodone Allergy Unknown Itching Verified 10/04/16 16:06 All Systems PM: A 10-system review of systems was performed and is negative for pertinent findings except as documented above in the HPI. - Constitutional Vitals: Temp Pulse Resp BP Pulse Ox 99.3 F 74 17 140/73 97 09/16/17 01:29 09/16/17 01:29 09/16/17 01:29 09/16/17 01:29 09/16/17 01:29 General appearance: Present: A&O X 3, no acute distress, answers questions appropriately - Head Head exam: Present: atraumatic, normocephalic - Eye Eye exam: Present: PERRL, conjuntiva pink, sclera anicteric Pupils: Present: PERRL - Neck Neck exam general surgery: Present: supple, trachea midline. Absent: lymphadenopathy - Respiratory Respiratory exam: Present: CTAB. Absent: accessory muscle use, rales, rhonchi, wheezes - Cardiovascular Cardiovascular exam: Present: RRR, +S1, +S2. Absent: diastolic murmur, gallop, rubs, systolic murmur - GI/Abdominal GI/Abdominal exam: Present: normal bowel sounds, soft, tenderness, no peritoneal signs. Absent: distended - Extremities Exam Extremities exam: Present: warm, radial pulses palpable and symmetrical. Absent : calf tenderness, cyanotic, pedal edema - Neurological Exam Neurological exam: Present: CN II-XII intact, oriented X3, no focal deficits. Absent: pronater drift, facial droop, speech deficit - Skin Skin exam: Present: dry, intact Internal Med - H&P Results - Labs CBC & Chem 7: 09/15/17 21:14 09/15/17 21:14
[2017-09-16] MEDS ORDERED: Levofloxacin 500 MG/100 ML 500 MG/100 ML BAG IVPB SCH (02:00)
[2017-09-16] MEDS: MetroNIDAZOLE 500 MG/100 ML 500 MG/100 ML BAG IVPB SCH ×3 (02:36→08:45)
[2017-09-16] MEDS: Furosemide 40 MG/4 ML VIAL IVP SCH ×3 (02:36→16:51)
[2017-09-16 02:39] LABS: Basophils % 0.4 %; Mean Corpuscular HGB Conc 34.4 g/dL (31.6-35.5)
[2017-09-16 02:41] LABS: Eosinophils % 1.1 %; Hematocrit 24.7 % (37.5-50.1); Hemoglobin 8.5 g/dL (12.9-16.9); Immature Granulocytes % 0.8 % (0-4); Immature Platelets 8.2 % (1.1-6.1); Lymphocytes # 0.7 K/mcL (0.6-4.6); Lymphocytes % 24.4 %; Mean Corpuscular Hemoglobin 31.6 pg (28.0-33.3); Mean Corpuscular Volume 91.8 fL (83.0-100.0); Mean Platelet Volume 11.6 fL (9.4-12.4); Monocytes # 0.3 K/mcL (0.0-1.3); Monocytes % 9.8 %; Neutrophils # 1.7 K/mcL (1.6-8.9); Red Blood Count 2.69 M/mcL (4.19-5.50); Red Cell Distribution Width 13.2 % (11.5-14.5); Segmented Neutrophils % 63.5 %
[2017-09-16 02:44] LABS: Beta-Hydroxybutyric Acid > 2.00 mmol/L (0.02-0.27)
[2017-09-16 02:47] LABS: Platelet Count 91 K/mcL (140-400)
[2017-09-16 02:56] LABS: Alanine Aminotransferase 9 Units/L (0-55); Albumin 3.5 g/dL (3.5-5.0); Alkaline Phosphatase 139 Units/L (38-126); Aspartate Amino Transferase 12 Units/L (5-34); BUN/Creatinine Ratio 5 (6-26); Blood Urea Nitrogen 17 mg/dL (8-26); Calcium 9.1 mg/dL (8.6-10.8); Carbon Dioxide 26 mEq/L (19-29); Chloride 99 mEq/L (98-109); Chol/HDL Ratio 8.9 (0-4.9); Cholesterol 186 mg/dL (< 200); Globulin 3.4 g/dL (2.4-3.5); Glucose 347 mg/dL (70-99); HDL Cholesterol 21 mg/dL (40-59); LDL Cholesterol,Calculated 107 mg/dL (0-99); Magnesium 1.8 mg/dL (1.6-2.6); Osmolality,Calculated 299 (280-300); Phosphorous 3.4 mg/dL (2.3-4.7); Potassium 4.2 mEq/L (3.5-4.5); Sodium 137 mEq/L (136-145); Total Protein 6.9 g/dL (6.0-8.3); Triglycerides 292 mg/dL (< 150); eGFR For African Americans 22 (> 60); eGFR For Non-African Americans 18 (> 60)
[2017-09-16 03:10] LABS: Hemoglobin A1C 12.1 %
[2017-09-16] MEDS ORDERED: Famotidine 20 MG/2 ML VIAL IVP SCH (06:00)
[2017-09-16] MEDS: Insulin LISPRO 300 UNITS/3 ML VIAL SQ SCH ×3 (06:14→17:57)
[2017-09-16] MEDS: Aspirin 81 MG TAB.CHEW PO SCH (08:36)
[2017-09-16] MEDS: Folic Acid 1 MG TABLET PO SCH (08:36)
[2017-09-16] MEDS: Isosorbide MONOnitrate (24 HR) 30 MG TAB.ER.24H PO SCH (08:36)
[2017-09-16] MEDS: Calcium Acetate 667 MG CAPSULE PO SCH ×3 (08:36→16:49)
[2017-09-16] MEDS: Gabapentin 300 MG CAPSULE PO SCH ×2 (08:36→20:43)
[2017-09-16] MEDS ORDERED: Famotidine 20 MG TABLET PO SCH (09:00)
[2017-09-16 09:11] LABS: Bilirubin,Urine Negative (Negative); Blood,Urine Trace (Negative); Clarity,Urine Clear (Clear); Color,Urine Yellow (Yellow); Glucose,Urine (UA) >=1000 mg/dL (Normal); Ketones,Urine Trace mg/dL (Negative); Leukocyte Esterase,Urine Negative (Negative); Nitrite,Urine Negative (Negative); Protein,Urine 100 mg/dL (Neg-Trace); Specific Gravity,Urine 1.016 (1.010-1.025); Urobilinogen,Urine Normal (Normal)
[2017-09-16 09:13] LABS: Bacteria,Urine None Seen per hpf (None-Few); Hyaline Casts,Urine None Seen per lpf (None-Few); RBC,Urine 0-3 per hpf (0-3); Squamous Epithelial Cell,Urine Many per lpf (None-Few)
[2017-09-16 10:21] LABS: Beta-Hydroxybutyric Acid 0.23 mmol/L (0.02-0.27)
--- NOTE | 2017-09-16 10:55 | Internal Med Progress Note ---
Date of Encounter: 09/16/17 Time of Encounter: 10:10 - Assessment and plan (1) Nausea and vomiting Current Visit: Yes Status: Acute Assessment and plan: Unclear etiology. Started after completing hemodialysis session yesterday. Could be related to hyperglycemia. Currently improving. Continue supportive care with when necessary antiemetics. CT abdomen/pelvis shows no acute abnormality except cholelithiasis. Right upper quadrant ultrasound shows no evidence of cholecystitis, does show gallstones and gallbladder sludge. Start diet as tolerated. Qualifiers: Vomiting type: unspecified Vomiting Intractability: non-intractable Qualified Code(s): R11.2 - Nausea with vomiting, unspecified (2) Acute exacerbation of congestive heart failure Current Visit: Yes Status: Acute Assessment and plan: Patient reports at least 2-3 week history of exertional dyspnea. Continue IV Lasix. Will receive hemodialysis per schedule. Continue Imdur, beta sam, supplemental oxygen as needed. Echocardiogram reviewed-shows ejection fraction around 55%, mild concentric left ventricular hypertrophy, severe left ventricular diastolic dysfunction. Qualifiers: Congestive heart failure type: diastolic Qualified Code(s): I50.33 - Acute on chronic diastolic (congestive) heart failure (3) Coronary artery disease Current Visit: Yes Status: Chronic Assessment and plan: Continue aspirin, Plavix, beta sam and statin. Serial troponins are flat and adynamic, around 0.05. Likely related to volume overload and underlying end -stage renal disease. Qualifiers: Coronary Disease-Associated Artery/Lesion type: bypass graft [place] vs. transplanted heart: [place] heart Associated angina: without angina Qualified Code(s): I25.810 - Atherosclerosis of coronary artery bypass graft(s) without angina pectoris (4) Diabetes mellitus Current Visit: Yes Status: Chronic Assessment and plan: Patient presented with hyperglycemia, did not meet criteria for DKA. Continues to have mild beta hydroxybutyric acid elevation with no metabolic acidosis, normal pH. Blood sugars noted to be improving, continue to be high 200s. Start basal insulin. Continue Accu-Chek blood glucose monitoring with sliding scale insulin. Diabetic diet as tolerated. Hemoglobin A1c noted to be 12.1% suggestive of poorly controlled diabetes. 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 Follows with oncology as outpatient. Continue Aranesp along with oral ferrous sulfate supplements. Qualifiers: Chronic kidney disease stage: on chronic dialysis Qualified Code(s): N18.6 - End stage renal disease; D63.1 - Anemia in chronic kidney disease; D63.1 - Anemia in chronic kidney disease; Z99.2 - Dependence on renal dialysis; Z99.2 - Dependence on renal dialysis; Z99.2 - Dependence on renal dialysis; Z99.2 - Dependence on renal dialysis (6) ESRD (end stage renal disease) on dialysis Current Visit: Yes Status: Chronic Assessment and plan: Nephrology consulted for hemodialysis needs. Scheduled for dialysis tomorrow, per schedule. (7) HLD (hyperlipidemia) Current Visit: Yes Status: Chronic Qualifiers: Hyperlipidemia type: unspecified Qualified Code(s): E78.5 - Hyperlipidemia , unspecified (8) Hyperglycemia Current Visit: Yes Status: Acute Assessment and plan: Improving. Plan as above. - Subjective Interval history: Continues to have intermittent nausea; abdominal pain from retching and vomiting ; no diarrhea, fever/chills; completed dialysis yesterday, after which his symptoms began. - Constitutional Vitals: Temp Pulse Resp BP Pulse Ox 97.9 F 61 16 120/62 96 09/16/17 07:03 09/16/17 07:03 09/16/17 07:03 09/16/17 07:03 09/16/17 07:03 General appearance: Present: A&O X 3, answers questions appropriately - Respiratory Respiratory exam: Present: CTAB. Absent: accessory muscle use, rales, rhonchi, wheezes - Cardiovascular Cardiovascular exam: Present: RRR, +S1, +S2. Absent: diastolic murmur, gallop, rubs, systolic murmur - GI/Abdominal GI/Abdominal exam: Present: normal bowel sounds, soft, no peritoneal signs. Absent: distended, tenderness - Extremities Exam Extremities exam: Present: full ROM, warm, radial pulses palpable and symmetrical. Absent: calf tenderness, cyanotic, pedal edema - Neurological Exam Neurological exam: Present: CN II-XII intact, oriented X3, no focal deficits. Absent: pronater drift, facial droop, speech deficit Internal Medicine: Result - Labs CBC & Chem 7: 09/16/17 02:30 09/16/17 09:37 Labs: Short CBC 09/16/17 Range/Units 02:30 WBC 2.7 L (4.3-11.1) K/mcL Hgb 8.5 L (12.9-16.9) g/dL Hct 24.7 L (37.5-50.1) % Plt Count 91 L (140-400) K/mcL Neutrophils # 1.7 (1.6-8.9) K/mcL BMP 09/16/17 02:30 Sodium 137 Potassium 4.2 Chloride 99 Carbon Dioxide 26 BUN 17 Creatinine 3.46 H Glucose 347 H Calcium 9.1 Cardiac Enzymes 09/16/17 09/16/17 Range/Units 02:30 07:45 Troponin I 0.04 H* 0.05 H* (0-0.03) ng/mL Liver Function 09/16/17 Range/Units 02:30 Total Bilirubin 1.0 (0.2-1.2) mg/dL AST 12 (5-34) Units/L ALT 9 (0-55) Units/L Alkaline Phosphatase 139 H (38-126) Units/L Albumin 3.5 (3.5-5.0) g/dL Urine 09/16/17 Range/Units 08:55 Urine Color Yellow (Yellow) Urine Clarity Clear (Clear) Urine pH 7.0 (5.0-8.0) pH Units Ur Specific [place] 1.016 (1.010-1.025) Urine Protein 100 H (Neg-Trace) mg/dL Urine Glucose (UA) >=1000 H (Normal) mg/dL - VTE Documentation of Mechanical Device: Graduated compression elastic hosiery Consult Discharge Plan - Plan [facility]errals: [facility] [Primary Care Provider] -
[2017-09-16 10:59] LABS: Magnesium 1.8 mg/dL (1.6-2.6); Potassium 3.8 mEq/L (3.5-4.5)
--- NOTE | 2017-09-16 12:44 | Nephrology Consult Note ---
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 He developed nausea and vomiting at the end of his dialysis session yesterday. This may be related to over aggressive volume removal. Is unclear if he had hypotension at the time. He denies having any muscle cramps at that time. Patient will continue to be supported with dialysis every Friday. With his next session we will be less aggressive with fluid removal. Patient has a several month history of exertional dyspnea. He denies any chest pain. Etiology is unclear. It is important to note that his last heart catheterization back in October 2016 did show an 80% lesion of the bypass graft to the first diagonal branch. (2) Anemia in CKD (chronic kidney disease) Current Visit: No Status: Chronic Qualifiers: Chronic kidney disease stage: on chronic dialysis Qualified Code(s): N18.6 - End stage renal disease; D63.1 - Anemia in chronic kidney disease; D63.1 - Anemia in chronic kidney disease; Z99.2 - Dependence on renal dialysis; Z99.2 - Dependence on renal dialysis; Z99.2 - Dependence on renal dialysis; Z99.2 - Dependence on renal dialysis (3) CAD (coronary artery disease), [place] coronary artery Current Visit: Yes Status: Acute Qualifiers: [place] vs. transplanted heart: [place] heart Associated angina: without angina Qualified Code(s): I25.10 - Atherosclerotic heart disease of [place] coronary artery without angina pectoris (4) Nausea and vomiting Current Visit: Yes Status: Acute Qualifiers: Vomiting type: unspecified Vomiting Intractability: non-intractable Qualified Code(s): R11.2 - Nausea with vomiting, unspecified History of Present Illness - History of Present Illness This is a 62-year-old male who has end-stage renal disease related to type I diabetic nephropathy. He receives dialysis every Friday in [place]. At the conclusion of the patient's dialysis session yesterday he developed some nausea and vomiting. He subsequently presents to emergency room and was admitted to the hospital for further evaluation and management. He has some abdominal pain which he blames on the nausea and vomiting. Today his nausea is still present but partially improved. He has had no further vomiting. Imaging studies have shown evidence of gallbladder disease but no acute cholecystitis. Patient is also been having issues with chronic exertional dyspnea for several months. He denies any chest pain. He does not have any peripheral edema. He does have anemia of chronic kidney disease which has been treated aggressively. He has had several similar episodes of nausea and vomiting following dialysis within the past several weeks. We have been trying to keep his dry weight as low as possible because of his complaints of exertional dyspnea. His last echocardiogram showed an ejection fraction of 55- 60%. Patient did undergo a cardiac catheterization December 2015. He had 2 bypass grafts evaluated. The graft to the first diagonal was said to have an 80 % stenosis. Medical therapy was recommended at that time. Past Med Surg Social Fam HX - Past Medical History Medical history: coronary artery disease, diabetes, GERD, hyperlipidemia, hypertension, renal disease Psychiatric history: anxiety, depression - Past Surgical History Surgical History: angioplasty/stent, coronary bypass (CABG) (2v CABG in 1998, redo 3v CABG in 2002), orthopedic, other (Surgery on right knee x4, scope on left knee x1), other (Amputation of left great toe, re-attachment of right hand after accident at work) - Social History Smoking Status: Never smoker Smokeless Tobacco Status: No Alcohol use: none Drug use: none - Family History Father Adopted: No Family Member Ethnicity: Non- Living Status: Still Living Hx Family Cardiac Disorders: Yes (Coronary artery disease?) Hx Family Respiratory Disorders: No Hx Family Cancer: Yes Hx Family GI Disorders: No Hx Family Endocrine Disorder: Yes (brothers, sister) Hx Family Neuromuscular Disorders: No Hx Family Neurologic Disorders: No Hx Family HEENT Disorders: No Hx Family Autoimmune Disorders: No Brother Family Member Ethnicity: Non- Living Status: Still Living Hx Family Cardiac Disorders: Yes ([place]) Sister Family Member Ethnicity: Non- Living Status: Still Living Hx Family Endocrine Disorder: Yes (DM) Mother Adopted: No Family Member Ethnicity: Non- Living Status: Still Living Hx Family Cardiac Disorders: Yes ([place], Pacemaker) Hx Family Respiratory Disorders: Yes (COPD) Hx Family Cancer: Yes Hx Family GI Disorders: No Hx Family Endocrine Disorder: Yes (DM) Hx Family Neuromuscular Disorders: No Hx Family Neurologic Disorders: No Hx Family HEENT Disorders: No Hx Family Autoimmune Disorders: No Medications and Allergies Calcium Acetate [Phos-LO] 1,334 mg PO TIDWM 10/04/16 [History] Gabapentin [Neurontin] 300 mg PO BID 10/04/16 [History] Loratadine [Claritin] 10 mg PO DAILY 10/04/16 [History] Pantoprazole Sodium [Protonix] 40 mg PO DAILY 10/04/16 [History] Paroxetine [Paxil] 20 mg PO QAM 10/04/16 [History] Ranitidine HCl [Heartburn Relief] 150 mg PO DAILY 10/04/16 [History] Tamsulosin [Flomax] 0.4 mg PO DAILY 10/04/16 [History] Aspirin 81 mg PO DAILY #30 tab.chew 10/24/16 [Rx] Insulin ASPART [NovoLOG] 35 unit SQ BIDWM 04/25/17 [History] OxyCODONE Immed Rel [Roxicodone 5 MG] 10 mg PO Q6HR PRN 04/26/17 [History] Clopidogrel [Plavix] 75 mg PO DAILY #30 tablet 04/28/17 [Rx] Furosemide [Lasix] 60 mg PO BID 05/23/17 [History] Ferrous Sulfate 325 mg PO DAILY@0800 #30 tab 06/01/17 [Rx] Folic Acid 2 mg PO DAILY tab 06/01/17 [Rx] Metoprolol [Lopressor] 50 mg PO BID 06/04/17 [History] Docusate [Colace] 100 mg PO DAILY PRN #0 06/06/17 [Rx] Isosorbide MONOnitrate (24 HR) [Imdur] 30 mg PO DAILY #30 06/06/17 [Rx] 3 Allergy/AdvReac Type Severity Reaction Status Date / Time codeine Allergy Unknown Hives Verified 10/04/16 16:06 Methadone Allergy Unknown Rash Verified 10/04/16 16:06 Penicillins [PCN] Allergy Unknown Rash Verified 10/04/16 16:06 promethazine [From Phenergan] Allergy Unknown Hives Verified 10/04/16 16:06 trazodone Allergy Unknown Itching Verified 10/04/16 16:06 Review of Systems Constitutional: as per HPI, weakness Nose, mouth and throat: no dizziness, no headache(s) Cardiovascular: dyspnea, dyspnea on exertion Respiratory: dyspnea, dyspnea on exertion Gastrointestinal: abdominal pain, nausea, vomiting Genitourinary Male: as per HPI Musculoskeletal: back pain Integumentary: no hirsutism, no striae Neurological: as per HPI, weakness Psychiatric: no depression, no difficulty concentrating Endocrine: as per HPI Exam - Vital Signs Vital signs: Initial Vital Signs Temp Pulse Resp BP Pulse Ox 97.7 F 80 16 151/78 92 09/15/17 20:31 09/15/17 20:31 09/15/17 20:31 09/15/17 20:31 09/15/17 20:31 Vital Signs - Last 8 Hours Temp Pulse Resp BP Pulse Ox 09/16/17 07:03 97.9 F 61 16 120/62 96 Intake and Output 09/15/17 09/16/17 09/16/17 23:59 07:59 15:59 Intake Total 100 / 100 Output Total 400 / 400 Balance 100 / 100 -400 / -400 Intake: IV Fluids 100 / 100 Flagyl Premix 500 MG/100 ML 500 100 / 100 mg In 100 ml @ 100 mls/hr IVPB Q8HR COUNT INCLUDES THE [facility] Rx#:[id number] Oral 0 / 0 Output: Urine 400 / 400 Other: Weight 93.497 kg Blood Glucose* 286 Patient Weight 09/16/17 23:59 Weight 93.497 kg - General Appearance Exam: Patient is alert and oriented. He is in no acute distress. Appears chronically ill. Lungsbreath sounds otherwise clear to auscultation. Heart regular rate and rhythm with a 2/6 ejection murmur. Abdomen shows normal bowel sounds. Abdomen is soft. There is some mild tenderness in left lower quadrant as well as the right upper quadrant. There is no guarding or rigidity. There is no lower extremity swelling. There is a functioning AV fistula in the left upper extremity. Results - Lab Results 09/16/17 02:30 09/16/17 09:37 Most recent lab results Calcium 9.0 mg/dL (8.6-10.8) 09/16/17 09:37 Phosphorus 3.4 mg/dL (2.3-4.7) 09/16/17 02:30 Magnesium 1.8 mg/dL (1.6-2.6) 09/16/17 09:37 Consult Discharge Plan - Plan [facility]errals: [facility] [Primary Care Provider] -
[2017-09-16 13:51] LABS: Thyroid Stimulating Hormone 1.868 mcIU/mL (0.350-4.840)
[2017-09-16] MEDS: Darbepoetin 100 MCG/0.5 ML SYRINGE SQ SCH (13:59)
[2017-09-16 15:57] LABS: Hepatitis B Surface Antibody 1.68 mIU/mL; Hepatitis B Surface Antigen Nonreactive (Nonreactive)
--- NOTE | 2017-09-16 17:17 | Electrocardiograph Report ---
[address] [address] Test Date: 2017-09-15 Pat Name: Orlando Velarde Department: 103 Room: 2A Gender: M [employer] Miner: HERBERTH : 1955 Requested By: Ang Diaz Order Number: [id number] Reading MD: Makayla Jimenez Measurements Intervals [place] Rate: 74 P: -5 MD: 142 QRS: 75 QRSD: 98 T: 159 QT: 417 QTc: 445 Interpretive Statements SINUS RHYTHM LEFT VENTRICULAR HYPERTROPHY AND ST-T CHANGE [VOLTAGE CRITERIA PLUS ST/T ABNORMALITY] Electronically Signed On 09-16-2017 17:15:36 EDT by Makayla Jimenez
[2017-09-16] MEDS: *HR* OxyCODONE Immed Rel 5 MG TABLET PO PRN (18:32)
[2017-09-16] MEDS: Insulin DETEMIR 100 UNIT/ML X5UNITS SQ SCH (22:49)
[2017-09-17] MEDS: Insulin LISPRO 300 UNITS/3 ML VIAL SQ SCH ×6 (00:48→20:13)
[2017-09-17] MEDS: *HR* OxyCODONE Immed Rel 5 MG TABLET PO PRN ×3 (00:54→18:51)
[2017-09-17 05:42] LABS: Mean Platelet Volume 11.2 fL (9.4-12.4)
[2017-09-17 05:44] LABS: Basophils % 0.4 %; Eosinophils # 0.1 K/mcL (0.0-0.6); Eosinophils % 2.2 %; Hematocrit 24.7 % (37.5-50.1); Hemoglobin 8.3 g/dL (12.9-16.9); Immature Platelets 6.5 % (1.1-6.1); Lymphocytes # 0.9 K/mcL (0.6-4.6); Lymphocytes % 31.5 %; Mean Corpuscular HGB Conc 33.6 g/dL (31.6-35.5); Mean Corpuscular Hemoglobin 30.9 pg (28.0-33.3); Mean Corpuscular Volume 91.8 fL (83.0-100.0); Monocytes # 0.3 K/mcL (0.0-1.3); Monocytes % 11.4 %; Neutrophils # 1.5 K/mcL (1.6-8.9); Red Blood Count 2.69 M/mcL (4.19-5.50); Red Cell Distribution Width 13.4 % (11.5-14.5); Segmented Neutrophils % 54.5 %
[2017-09-17 05:47] LABS: Platelet Count 86 K/mcL (140-400)
[2017-09-17 05:55] LABS: Albumin 3.2 g/dL (3.5-5.0); Calcium 9.4 mg/dL (8.6-10.8); Potassium 3.7 mEq/L (3.5-4.5)
[2017-09-17 06:02] LABS: Albumin 3.2 g/dL (3.5-5.0); Albumin/Globulin Ratio 0.9 (1.1-2.2); Bilirubin,Total 0.4 mg/dL (0.2-1.2); Calcium 9.3 mg/dL (8.6-10.8); Globulin 3.4 g/dL (2.4-3.5); Magnesium 1.9 mg/dL (1.6-2.6); Potassium 3.7 mEq/L (3.5-4.5); Total Protein 6.6 g/dL (6.0-8.3)
[2017-09-17] MEDS: Aspirin 81 MG TAB.CHEW PO SCH (08:15)
[2017-09-17] MEDS: Calcium Acetate 667 MG CAPSULE PO SCH ×3 (08:15→17:15)
[2017-09-17] MEDS: Gabapentin 300 MG CAPSULE PO SCH ×2 (08:15→20:13)
[2017-09-17] MEDS: Folic Acid 1 MG TABLET PO SCH (08:15)
[2017-09-17] MEDS: Insulin DETEMIR 100 UNIT/ML X5UNITS SQ SCH ×2 (08:16→20:12)
[2017-09-17] MEDS: Famotidine 20 MG TABLET PO SCH (08:16)
[2017-09-17] MEDS: Furosemide 40 MG/4 ML VIAL IVP SCH ×2 (08:16→18:49)
[2017-09-17] MEDS ORDERED: 0.9 % Sodium Chloride 250 ML IVC PRN (08:20)
--- NOTE | 2017-09-17 08:20 | Nephrology Progress Note ---
Date of Encounter: 09/17/17 Time of Encounter: 08:19 - Assessment and Plan (1) ESRD (end stage renal disease) on dialysis Current Visit: Yes Status: Chronic Patient will undergo dialysis today. He will he is on Aranesp for his anemia. It may be worthwhile to request a cardiology review his previous heart catheterization results from October 2016 where it was noted that he had an 80 % stenosis in one of his bypass grafts. (2) Anemia in CKD (chronic kidney disease) Current Visit: Yes Status: Chronic Qualifiers: Chronic kidney disease stage: on chronic dialysis Qualified Code(s): N18.6 - End stage renal disease; D63.1 - Anemia in chronic kidney disease; D63.1 - Anemia in chronic kidney disease; Z99.2 - Dependence on renal dialysis; Z99.2 - Dependence on renal dialysis; Z99.2 - Dependence on renal dialysis; Z99.2 - Dependence on renal dialysis (3) CAD (coronary artery disease), [place] coronary artery Current Visit: Yes Status: Acute Qualifiers: [place] vs. transplanted heart: [place] heart Associated angina: without angina Qualified Code(s): I25.10 - Atherosclerotic heart disease of [place] coronary artery without angina pectoris (4) Nausea and vomiting Current Visit: Yes Status: Acute Qualifiers: Vomiting type: unspecified Vomiting Intractability: non-intractable Qualified Code(s): R11.2 - Nausea with vomiting, unspecified Subjective Interval history: The patient reports his nausea vomiting abdominal pain have resolved. He also reports he is less short of breath with the use of supplemental oxygen. He is scheduled for his usual dialysis today. Echocardiogram shows severe diastolic dysfunction. Objective - Vital Signs Vital signs: Vital Signs Temp Pulse Resp BP Pulse Ox 09/17/17 07:42 98.0 F 50 16 131/63 98 09/17/17 03:56 97.6 F 48 17 102/55 97 09/16/17 23:49 98.8 F 65 18 128/65 97 09/16/17 19:45 98.6 F 60 18 115/53 97 09/16/17 15:48 99.1 F 59 17 122/55 93 09/16/17 13:59 123/46 09/16/17 12:51 97.7 F 51 17 123/46 97 Intake and Output 09/16/17 09/17/17 09/17/17 23:59 07:59 15:59 Intake Total 240 / 240 Output Total 175 / 175 Balance -175 / -175 240 / 240 Intake: Oral 240 / 240 Output: Urine 175 / 175 Other: Weight 208.9 kg Blood Glucose* 222 195 Patient Weight 09/17/17 23:59 Weight 208.9 kg - General Appearance Exam: Patient is alert and oriented. He is in no acute distress. Lungs diminished breath sounds otherwise clear. Heart regular rate and rhythm with a 2/6 talk ejection murmur. Abdomen is benign. There is no lower extremity swelling. There is a functioning AV fistula in the left upper extremity. - Lab 09/17/17 05:25 09/17/17 05:25 Most recent lab results Calcium 9.4 mg/dL (8.6-10.8) 09/17/17 05:25 Phosphorus 4.0 mg/dL (2.3-4.7) 09/17/17 05:25 Magnesium 1.9 mg/dL (1.6-2.6) 09/17/17 05:25 - VTE Documentation of Mechanical Device: Graduated compression elastic hosiery Consult Discharge Plan - Plan [facility]errals: [facility] [Primary Care Provider] -
--- NOTE | 2017-09-17 13:11 | Internal Med Progress Note ---
Date of Encounter: 09/17/17 Time of Encounter: 13:09 - Assessment and plan (1) Nausea and vomiting Current Visit: Yes Status: Resolved Assessment and plan: Unclear etiology. Started after completing hemodialysis session yesterday. Likely related to excess ultrafiltration, per nephrology. Could be related to hyperglycemia. Currently resolved. Able to tolerate oral diet. Continue supportive care with when necessary antiemetics. CT abdomen/pelvis shows no acute abnormality except cholelithiasis. Right upper quadrant ultrasound shows no evidence of cholecystitis, does show gallstones and gallbladder sludge. Qualifiers: Vomiting type: unspecified Vomiting Intractability: non-intractable Qualified Code(s): R11.2 - Nausea with vomiting, unspecified (2) Acute exacerbation of congestive heart failure Current Visit: Yes Status: Acute Assessment and plan: Patient reports at least 2-3 week history of exertional dyspnea. Case discussed with nephrology, patient has been doing poorly at least for the last few months, continues to deteriorate. Requested cardiology to review patient's previous left heart catheterization report from October 2016 which shows multiple abnormalities and medical management was recommended at that time. Will continue to f/up. Serial Troponins are flat and adynamic. Will receive hemodialysis per schedule. Continue Lasix, Imdur, beta sam, supplemental oxygen as needed. Echocardiogram reviewed-shows ejection fraction around 55%, mild concentric left ventricular hypertrophy, severe left ventricular diastolic dysfunction. Qualifiers: Congestive heart failure type: diastolic Qualified Code(s): I50.33 - Acute on chronic diastolic (congestive) heart failure (3) Coronary artery disease Current Visit: Yes Status: Chronic Assessment and plan: Continue aspirin, Plavix, beta sam and statin. Serial troponins are flat and adynamic, around 0.05. Likely related to volume overload and underlying end -stage renal disease. Qualifiers: Coronary Disease-Associated Artery/Lesion type: bypass graft [place] vs. transplanted heart: [place] heart Associated angina: without angina Qualified Code(s): I25.810 - Atherosclerosis of coronary artery bypass graft(s) without angina pectoris (4) Diabetes mellitus Current Visit: Yes Status: Chronic Assessment and plan: Patient presented with hyperglycemia, did not meet criteria for DKA. Blood sugars noted to be improving, but intermittent high readings, we will increase basal insulin and continue sliding scale insulin. Patient is noted to take high -dose of twice-daily short-acting insulin at home, which is erroneous. Continue Accu-Chek blood glucose monitoring. Diabetic diet as tolerated. Hemoglobin A1c noted to be 12.1% suggestive of poorly controlled diabetes. Qualifiers: Diabetes mellitus type: type 2 Diabetes mellitus complication status: with kidney complications Diabetes mellitus complication detail: with chronic kidney disease Diabetes mellitus care home insulin use: with hide sorter use Chronic kidney disease stage: on chronic dialysis Qualified Code(s): E11.22 - Type 2 diabetes mellitus with diabetic chronic kidney disease; N18.6 - End stage renal disease; N18.6 - End stage renal disease; N18.6 - End stage renal disease; N18.6 - End stage renal disease; Z79.4 - custodial (current) use of insulin; Z79.4 - custodial (current) use of insulin; Z79.4 - custodial (current ) use of insulin; Z79.4 - custodial (current) use of insulin; Z99.2 - Dependence on renal dialysis; Z99.2 - Dependence on renal dialysis; Z99.2 - Dependence on renal dialysis; Z99.2 - Dependence on renal dialysis (5) Anemia in CKD (chronic kidney disease) Current Visit: Yes Status: Chronic Assessment and plan: Patient does have a history of cirrhosis and splenomegaly. Follows with oncology as outpatient. Continue Aranesp along with oral ferrous sulfate supplements. Qualifiers: Chronic kidney disease stage: on chronic dialysis Qualified Code(s): N18.6 - End stage renal disease; D63.1 - Anemia in chronic kidney disease; D63.1 - Anemia in chronic kidney disease; Z99.2 - Dependence on renal dialysis; Z99.2 - Dependence on renal dialysis; Z99.2 - Dependence on renal dialysis; Z99.2 - Dependence on renal dialysis (6) ESRD (end stage renal disease) on dialysis Current Visit: Yes Status: Chronic Assessment and plan: Nephrology consulted for hemodialysis needs. Scheduled for dialysis today, per schedule. (7) HLD (hyperlipidemia) Current Visit: Yes Status: Chronic Qualifiers: Hyperlipidemia type: unspecified Qualified Code(s): E78.5 - Hyperlipidemia , unspecified (8) Hyperglycemia Current Visit: Yes Status: Resolved - Subjective Interval history: Feels better today; sitting up at the edge of bed and having lunch; improved nausea, vomiting; no diarrhea, fever/chills. Does have exertional dyspnea for the last few months; has elevated blood sugar readings at home and claims he has been prescribed 35units of Novolog twice daily? - Constitutional Vitals: Temp Pulse Resp BP Pulse Ox 98.3 F 55 18 113/63 97 09/17/17 11:29 09/17/17 11:29 09/17/17 11:29 09/17/17 11:29 09/17/17 11:29 General appearance: Present: A&O X 3, answers questions appropriately - Respiratory Respiratory exam: Present: CTAB. Absent: accessory muscle use, rales, rhonchi, wheezes - Cardiovascular Cardiovascular exam: Present: RRR, +S1, +S2. Absent: diastolic murmur, gallop, rubs, systolic murmur - GI/Abdominal GI/Abdominal exam: Present: normal bowel sounds, soft, no peritoneal signs. Absent: distended, tenderness - Extremities Exam Extremities exam: Present: full ROM, warm, radial pulses palpable and symmetrical. Absent: calf tenderness, cyanotic, pedal edema - Neurological Exam Neurological exam: Present: CN II-XII intact, oriented X3, no focal deficits. Absent: pronater drift, facial droop, speech deficit Internal Medicine: Result - Labs CBC & Chem 7: 09/17/17 05:25 09/17/17 05:25 Labs: Short CBC 09/17/17 Range/Units 05:25 WBC 2.7 L (4.3-11.1) K/mcL Hgb 8.3 L (12.9-16.9) g/dL Hct 24.7 L (37.5-50.1) % Plt Count 86 L (140-400) K/mcL Neutrophils # 1.5 L (1.6-8.9) K/mcL BMP 09/16/17 09/17/17 09/17/17 09:37 05:25 05:25 Sodium 138 139 140 Potassium 3.8 3.7 3.7 Chloride 100 100 100 Carbon Dioxide 29 29 30 H BUN 19 22 22 Creatinine 3.70 H 4.99 H 5.00 H Glucose 239 H 210 H 213 H Calcium 9.0 9.3 9.4 Cardiac Enzymes 09/16/17 Range/Units 13:33 Troponin I 0.05 H* (0-0.03) ng/mL Liver Function 09/17/17 09/17/17 Range/Units 05:25 05:25 Total Bilirubin 0.4 (0.2-1.2) mg/dL AST 10 (5-34) Units/L ALT 6 (0-55) Units/L Alkaline Phosphatase 126 (38-126) Units/L Albumin 3.2 L 3.2 L (3.5-5.0) g/dL - Impressions Impressions Echocardiogram 09/16/17 01:29 Impressions: LVEF 55%. Atypical septal motion. Mild concentric left ventricular hypertrophy. Severe left ventricular diastolic dysfunction. Normal right ventricular structure and function. Mild tricuspid regurgitation. Mild pulmonary hypertension. Left Ventricular Wall Motion: Rest Echo Findings All wall segments showed normal motion. Findings: Study Quality * Technically adequate exam. ECG Findings * Sinus bradycardia. Left Ventricle * LVEF 55%. * Atypical septal motion consistent with post-operative status. * Mild concentric left ventricular hypertrophy. * Normal LV size. * Severe left ventricular diastolic dysfunction. Systolic blunting of the pulmonary venous waveform. Right Ventricle * Normal right ventricular structure and function. Left Atrium * Severely dilated left atrium. Right Atrium * Normal right atrial size. Aortic Valve * Trileaflet aortic valve. * Mildly sclerotic aortic valve leaflets. * No aortic stenosis. * Trace aortic regurgitation. Mitral Valve * No mitral stenosis. * Trace mitral regurgitation. * Mild mitral annular calcification Tricuspid Valve * Normal tricuspid valve structure. * Mild tricuspid regurgitation. * Estimated RA pressure is 3 mmHg. * Estimated RVSP is 43 mmHg. * Mild pulmonary hypertension. Pulmonic Valve * Pulmonic valve is not well visualized. * No pulmonic stenosis. * No pulmonic regurgitation. Pulmonary Artery * Pulmonary artery not well visualized. Aorta * Normally sized aortic root. Pericardium * There is no pericardial effusion present. Interatrial Septum * No evidence of PFO by color Doppler. IVC * The IVC is not dilated. * < 50% respiratory change. - VTE Documentation of Mechanical Device: Graduated compression elastic hosiery Consult Discharge Plan - Plan [facility]errals: [facility] [Primary Care Provider] -
[2017-09-17] MEDS: Isosorbide MONOnitrate (24 HR) 30 MG TAB.ER.24H PO SCH (18:00)
[2017-09-17] MEDS ORDERED: 0.9 % Sodium Chloride 1,000 ML ONE (19:09)
[2017-09-18] MEDS: *HR* OxyCODONE Immed Rel 5 MG TABLET PO PRN ×2 (02:32→21:28)
[2017-09-18 05:55] LABS: Mean Corpuscular Volume 92.3 fL (83.0-100.0)
[2017-09-18 05:57] LABS: Eosinophils # 0.1 K/mcL (0.0-0.6); Eosinophils % 2.2 %; Hematocrit 23.9 % (37.5-50.1); Hemoglobin 7.9 g/dL (12.9-16.9); Immature Granulocytes % 0.4 % (0-4); Lymphocytes # 0.6 K/mcL (0.6-4.6); Mean Corpuscular HGB Conc 33.1 g/dL (31.6-35.5); Mean Corpuscular Hemoglobin 30.5 pg (28.0-33.3); Mean Platelet Volume 11.7 fL (9.4-12.4); Monocytes # 0.3 K/mcL (0.0-1.3); Monocytes % 12.8 %; Neutrophils # 1.3 K/mcL (1.6-8.9); Red Blood Count 2.59 M/mcL (4.19-5.50); Red Cell Distribution Width 13.4 % (11.5-14.5); Segmented Neutrophils % 57.6 %
[2017-09-18 06:14] LABS: Albumin/Globulin Ratio 0.9 (1.1-2.2); Bilirubin,Total 0.4 mg/dL (0.2-1.2); Calcium 8.4 mg/dL (8.6-10.8); Globulin 3.5 g/dL (2.4-3.5); Magnesium 1.6 mg/dL (1.6-2.6); Potassium 4.5 mEq/L (3.5-4.5); Total Protein 6.5 g/dL (6.0-8.3)
[2017-09-18 06:18] LABS: Platelet Count 66 K/mcL (140-400)
[2017-09-18] MEDS: Insulin LISPRO 300 UNITS/3 ML VIAL SQ SCH ×6 (08:35→21:29)
[2017-09-18] MEDS: Calcium Acetate 667 MG CAPSULE PO SCH ×3 (08:35→16:06)
[2017-09-18] MEDS: Furosemide 40 MG/4 ML VIAL IVP SCH ×2 (08:35→17:00)
[2017-09-18] MEDS: Gabapentin 300 MG CAPSULE PO SCH ×2 (08:36→21:27)
[2017-09-18] MEDS: Famotidine 20 MG TABLET PO SCH (08:36)
[2017-09-18] MEDS: Aspirin 81 MG TAB.CHEW PO SCH (08:36)
[2017-09-18] MEDS: Isosorbide MONOnitrate (24 HR) 30 MG TAB.ER.24H PO SCH (08:36)
[2017-09-18] MEDS: Folic Acid 1 MG TABLET PO SCH (08:36)
[2017-09-18] MEDS: Insulin DETEMIR 100 UNIT/ML X5UNITS SQ SCH ×2 (09:31→21:27)
--- NOTE | 2017-09-18 10:38 | Nephrology Progress Note ---
Date of Encounter: 09/18/17 Time of Encounter: 10:15 - Assessment and Plan (1) ESRD (end stage renal disease) on dialysis Current Visit: Yes Status: Chronic No HD today, keeping MWF schedule. Subjective Interval history: Sleeping left side, arouses easily. O2 NC. States breathing easier, denies N/V. Objective - Vital Signs Vital signs: Vital Signs Temp Pulse Resp BP Pulse Ox 09/18/17 06:46 98.1 F 59 18 138/69 99 09/18/17 04:30 98.7 F 61 16 127/61 99 09/17/17 23:44 98.5 F 64 16 159/68 93 09/17/17 19:16 98.1 F 71 16 99/58 92 09/17/17 18:25 97.6 F 16 145/60 09/17/17 18:00 138/62 09/17/17 17:30 144/65 09/17/17 17:00 157/74 09/17/17 16:30 148/72 09/17/17 16:00 139/62 09/17/17 15:30 137/61 09/17/17 15:00 97.7 F 18 125/59 09/17/17 11:29 98.3 F 55 18 113/63 97 Intake and Output 09/17/17 09/18/17 09/18/17 23:59 07:59 15:59 Intake Total 240 / 240 Output Total 1600 / 1600 175 / 175 Balance -1600 / -1600 -175 / -175 240 / 240 Intake: Oral 240 / 240 Output: Urine 0 / 0 175 / 175 Total Dialysis (HD) Output 1600 / 1600 Other: Meal Breakfast Percent of Meal Consumed 100% Weight 209 kg Blood Glucose* 145 375 Hemodialysis Net Fluid Removed 1000 (mL) Patient Weight 09/18/17 23:59 Weight 209 kg - General Appearance General appearance: Present: well-developed, well-nourished, appears started age EENT: Present: mucous membranes moist Neck: Present: no JVD Respiratory: Present: clear Cardiology: Present: no edema, regular rate, regular rhythm Gastrointestinal: Present: normoactive bowel sounds, no tenderness Integumentary: Present: warm and dry Neurologic: Present: alert and oriented x3 Psychiatric: Present: mood/affect appropriate, cooperative - Lab 09/18/17 05:34 09/18/17 05:34 Most recent lab results Calcium 8.4 mg/dL (8.6-10.8) L 09/18/17 05:34 Phosphorus 3.0 mg/dL (2.3-4.7) 09/18/17 05:34 Magnesium 1.6 mg/dL (1.6-2.6) 09/18/17 05:34 - VTE Documentation of Mechanical Device: Intermittent pneumatic compression device Consult Discharge Plan - Plan Referrals: [facility] [Primary Care Provider] -
--- NOTE | 2017-09-18 11:22 | Cardiology Consult Note ---
Date of Encounter: 09/18/17 Time of Encounter: 11:18 Assessment and Plan (1) Anginal equivalent Current Visit: Yes Status: Acute Pt reports nausea, vomiting, worsening fatigue and dyspnea over the past 4-5 weeks. Reports similar to previous anginal equivalent. Borderline trops 0.04 x 2 and 0.05 x 2 in setting of ESRD on dialysis and CHF-- nondiagnostic for ACS. No EKG changes. Echo EF preserved, severe LVDD. Hx of CAD s/p CABG, CABG redo and PCI. [facility] 10/23/16: s/p CABG 2 of 2 patent bypass grafts; medical management recommended, mild, non-obstructive disease in LCx. Regadenoson nuclear 04/24/17: poor quality study, global and regional areas of hypokinesis, unable to r/o ischemia in the basal to mid anterior wall, borderline evidence for TID, gated EF unreliable. Given symptoms concerning for anginal equivalent and recent stress test with unclear results/unable to rule out ischemia, recommend [facility] to further evaluate. R/B/A discussed. Pt agrees to proceed. Continue ASA, Plavix, Statin, BB. Chronic anemia in setting of CKD, pancytopenic but already on ASA and Plavix at home. (2) Coronary artery disease Current Visit: Yes Status: Chronic Hx CABG and PCI as above. ASA, Statin, Plavix, BB. Qualifiers: Coronary Disease-Associated Artery/Lesion type: bypass graft [place] vs. transplanted heart: [place] heart Associated angina: without angina Qualified Code(s): I25.810 - Atherosclerosis of coronary artery bypass graft(s) without angina pectoris (3) Diastolic CHF, acute on chronic Current Visit: Yes Status: Acute BNP 2618 (baseline 500s-600s). Also in setting of ESRD on dialysis. Worsening dyspnea x 4-5 weeks. Makes urine output, agree with IV Lasix 40mg BID for diuresis and also dialysis to help achieve optimal fluid volume status. Imaging consistent with CHF and pleural effusions. Echo EF preserved, severe diastolic dysfunction. Strict I/Os, Na and fluid restriction, daily weights. (4) Anemia in CKD (chronic kidney disease) Current Visit: Yes Status: Chronic Chronic anemia and pancytopenic. HGB 7.9, PLT 66. Within previous baseline range. Already on ASA and Plavix at home. Qualifiers: Chronic kidney disease stage: on chronic dialysis Qualified Code(s): N18.6 - End stage renal disease; D63.1 - Anemia in chronic kidney disease; D63.1 - Anemia in chronic kidney disease; Z99.2 - Dependence on renal dialysis; Z99.2 - Dependence on renal dialysis; Z99.2 - Dependence on renal dialysis; Z99.2 - Dependence on renal dialysis Discussion w patient/family: The assessment and plan as outlined above was discussed with the patient and/or family members who expressed understanding and agreement. All questions were answered. Thank you for involving us in the care of your patient. Please call with any questions. I will discuss all the above with Dr. Perdomo and make changes as necessary. History of Present Illness Consult date: 09/18/17 Requesting physician: Suyapa Ortiz Consult reason: anginal equivalent, CHF Chief complaint: dyspnea, n/v History of present illness: Mr. Velarde is a 62 year old male with PMH significant for CAD s/p 2v CABG (1998 ) and redo 3v CABG (2002), ESRD on HD, HTN, DMII, anemia of chronic disease, and PUD who presented to the ED with complaints of nausea, vomiting, diarrhea, fatigue, worsening dyspnea over the past 4-5 weeks. BNP 2618 (baseline 500s-600s ). Troponins borderline 0.04 x2 and 0.05 x2. Per pt, symptoms feel similar to past anginal equivalent. He denies any significant chest pain, but reports he experienced some when vomiting. Imaging shows gallstones, pleural effusions and findings consistent with CHF. Echo completed 09/16/17 EF 55%, mild concentric LVH, severe LVDD, mild TR, mild phtn. Pt reports he does still have urine output despite being on dialysis. Follows with the [facility] for Cardiology. Recent CV testing at [facility]: [facility] 10/23/16: s/p CABG 2 of 2 patent bypass grafts; medical management recommended, mild, non-obstructive disease in LCx. [facility] 10/23/16: EF 55%, severe LVDD, moderate to severely dilated LA, mild MR, TR, and PH, normal wall motion Regadenoson nuclear 04/24/17: poor quality study, global and regional areas of hypokinesis, unable to r/o ischemia in the basal to mid anterior wall, borderline evidence for TID, gated EF unreliable Past Med Surg Social Fam HX - Past Medical History Medical history: coronary artery disease, diabetes, GERD, hyperlipidemia, hypertension, renal disease Psychiatric history: anxiety, depression - Past Surgical History Surgical History: angioplasty/stent, coronary bypass (CABG) (2v CABG in 1998, redo 3v CABG in 2002), orthopedic, other (Surgery on right knee x4, scope on left knee x1), other (Amputation of left great toe, re-attachment of right hand after accident at work) - Social History Smoking Status: Never smoker Smokeless Tobacco Status: No Alcohol use: none Drug use: none - Family History Father Adopted: No Family Member Ethnicity: Non- Living Status: Still Living Hx Family Cardiac Disorders: Yes (Coronary artery disease?) Hx Family Respiratory Disorders: No Hx Family Cancer: Yes Hx Family GI Disorders: No Hx Family Endocrine Disorder: Yes (brothers, sister) Hx Family Neuromuscular Disorders: No Hx Family Neurologic Disorders: No Hx Family HEENT Disorders: No Hx Family Autoimmune Disorders: No Brother Family Member Ethnicity: Non- Living Status: Still Living Hx Family Cardiac Disorders: Yes ([place]) Sister Family Member Ethnicity: Non- Living Status: Still Living Hx Family Endocrine Disorder: Yes (DM) Mother Adopted: No Family Member Ethnicity: Non- Living Status: Still Living Hx Family Cardiac Disorders: Yes ([place], Pacemaker) Hx Family Respiratory Disorders: Yes (COPD) Hx Family Cancer: Yes Hx Family GI Disorders: No Hx Family Endocrine Disorder: Yes (DM) Hx Family Neuromuscular Disorders: No Hx Family Neurologic Disorders: No Hx Family HEENT Disorders: No Hx Family Autoimmune Disorders: No Medications and Allergies Calcium Acetate [Phos-LO] 1,334 mg PO TIDWM 10/04/16 [History] Gabapentin [Neurontin] 300 mg PO BID 10/04/16 [History] Loratadine [Claritin] 10 mg PO DAILY 10/04/16 [History] Pantoprazole Sodium [Protonix] 40 mg PO DAILY 10/04/16 [History] Paroxetine [Paxil] 20 mg PO QAM 10/04/16 [History] Ranitidine HCl [Heartburn Relief] 150 mg PO DAILY 10/04/16 [History] Tamsulosin [Flomax] 0.4 mg PO DAILY 10/04/16 [History] Aspirin 81 mg PO DAILY #30 tab.chew 12/08/16 [Rx] Insulin ASPART [NovoLOG] 35 unit SQ BIDWM 04/25/17 [History] OxyCODONE Immed Rel [Roxicodone 5 MG] 10 mg PO Q6HR PRN 04/26/17 [History] Clopidogrel [Plavix] 75 mg PO DAILY #30 tablet 04/28/17 [Rx] Furosemide [Lasix] 60 mg PO BID 05/23/17 [History] Ferrous Sulfate 325 mg PO DAILY@0800 #30 tab 06/01/17 [Rx] Folic Acid 2 mg PO DAILY tab 06/01/17 [Rx] Metoprolol [Lopressor] 50 mg PO BID 06/04/17 [History] Docusate [Colace] 100 mg PO DAILY PRN #0 06/06/17 [Rx] Isosorbide MONOnitrate (24 HR) [Imdur] 30 mg PO DAILY #30 06/06/17 [Rx] 3 Allergy/AdvReac Type Severity Reaction Status Date / Time codeine Allergy Unknown Hives Verified 10/04/16 16:06 Methadone Allergy Unknown Rash Verified 10/04/16 16:06 Penicillins [PCN] Allergy Unknown Rash Verified 10/04/16 16:06 promethazine [From Phenergan] Allergy Unknown Hives Verified 10/04/16 16:06 trazodone Allergy Unknown Itching Verified 10/04/16 16:06 All Systems Review: A 10-system review of systems was performed and is negative for pertinent findings except as documented above in the HPI. - Constitutional Constitutional: fatigue, weakness - Cardiovascular Cardiovascular: as per HPI, dyspnea at rest, dyspnea on exertion - Gastrointestinal Gastrointestinal: nausea Physical Examination Vital Signs, Last 4 Hours Temp Pulse Resp BP Pulse Ox 09/18/17 10:36 98.2 F 54 16 104/53 100 Vital Signs Temp Pulse Resp BP Pulse Ox 09/18/17 10:36 98.2 F 54 16 104/53 100 09/18/17 06:46 98.1 F 59 18 138/69 99 09/18/17 04:30 98.7 F 61 16 127/61 99 09/17/17 23:44 98.5 F 64 16 159/68 93 09/17/17 19:16 98.1 F 71 16 99/58 92 09/17/17 18:25 97.6 F 16 145/60 09/17/17 18:00 138/62 09/17/17 17:30 144/65 09/17/17 17:00 157/74 09/17/17 16:30 148/72 09/17/17 16:00 139/62 09/17/17 15:30 137/61 09/17/17 15:00 97.7 F 18 125/59 09/17/17 11:29 98.3 F 55 18 113/63 97 Intake and Output 09/17/17 09/18/17 09/18/17 23:59 07:59 15:59 Intake Total 240 / 240 Output Total 1600 / 1600 175 / 175 Balance -1600 / -1600 -175 / -175 240 / 240 Intake: Oral 240 / 240 Output: Urine 0 / 0 175 / 175 Total Dialysis (HD) Output 1600 / 1600 Other: Meal Breakfast Percent of Meal Consumed 100% Weight 209 kg Blood Glucose* 145 375 220 Hemodialysis Net Fluid Removed 1000 (mL) Patient Weight 09/18/17 23:59 Weight 209 kg General: Conversant, No Apparent Distress HEENT: Atraumatic, Normocephaly, Mucus Membranes Moist Neck: Normal carotid pulses Cardiac: Reg Rate and Rhythm, Normal S1 and S2, No Murmur Lungs: Other (diminished) Neuro: Alert and responsive, No focal deficits noted Abdomen: Soft, Non-Tender Skin: No rashes noted on visualized skin Musculoskeletal: No Chest Wall Tenderness Extremities: No Clubbing, No Cyanosis, No Edema, Normal Pulses Results 09/18/17 05:34 09/18/17 05:34 Lab Results 09/18/17 09/18/17 05:34 05:34 WBC 2.3 L Hgb 7.9 L Hct 23.9 L Plt Count 66 L Sodium 135 L Potassium 4.5 Chloride 98 Carbon Dioxide 29 BUN 17 Creatinine 4.34 H Glucose 461 H Calcium 8.4 L Magnesium 1.6 Total Bilirubin 0.4 AST 13 ALT 9 Alkaline Phosphatase 136 H Short CBC 09/18/17 Range/Units 05:34 WBC 2.3 L (4.3-11.1) K/mcL Hgb 7.9 L (12.9-16.9) g/dL Hct 23.9 L (37.5-50.1) % Plt Count 66 L (140-400) K/mcL Neutrophils # 1.3 L (1.6-8.9) K/mcL BMP 09/18/17 Range/Units 05:34 Sodium 135 L (136-145) mEq/L Potassium 4.5 (3.5-4.5) mEq/L Chloride 98 (98-109) mEq/L Carbon Dioxide 29 (19-29) mEq/L BUN 17 (8-26) mg/dL Creatinine 4.34 H (0.72-1.25) mg/dL Glucose 461 H (70-99) mg/dL Calcium 8.4 L (8.6-10.8) mg/dL Liver Function 09/18/17 Range/Units 05:34 Total Bilirubin 0.4 (0.2-1.2) mg/dL AST 13 (5-34) Units/L ALT 9 (0-55) Units/L Alkaline Phosphatase 136 H (38-126) Units/L Albumin 3.0 L (3.5-5.0) g/dL Active Medications Acetaminophen (Tylenol) 650 mg PO Q6HR PRN PRN Reason: Mild Pain (1-3) Stop: 03/18/18 01:20 Aspirin (Aspirin) 81 mg PO DAILY [facility] Stop: 03/18/18 09:01 Last Admin: 09/18/17 08:36 Dose: 81 mg Calcium Acetate (Phos-Lo) 1,334 mg PO TIDWM [facility] Stop: 03/18/18 08:01 Last Admin: 09/18/17 08:35 Dose: 1,334 mg Clopidogrel Bisulfate (Plavix) 75 mg PO DAILY [facility] Stop: 03/18/18 09:01 Last Admin: 09/18/17 08:36 Dose: 75 mg Darbepoetin Jordi (Aranesp) 100 mcg SQ Tu@0900 [facility] Stop: 03/18/18 13:01 Last Admin: 09/16/17 13:59 Dose: 100 mcg Dextrose/Water (Dextrose 50% (Syg)) 25 ml IVP AD PRN PRN Reason: Hypoglycemia Stop: 03/18/18 01:39 Docusate Sodium (Colace) 100 mg PO BID PRN PRN Reason: Constipation Stop: 03/18/18 01:20 Famotidine (Pepcid) 20 mg PO DAILY [facility] PRN Reason: Protocol Stop: 03/19/18 09:01 Last Admin: 09/18/17 08:36 Dose: 20 mg Ferrous Sulfate (Ferrous Sulfate) 325 mg PO DAILY@0800 [facility] Stop: 03/18/18 08:01 Last Admin: 09/18/17 08:36 Dose: 325 mg Folic Acid (Folic Acid) 2 mg PO DAILY [facility] Stop: 03/18/18 09:01 Last Admin: 09/18/17 08:36 Dose: 2 mg Furosemide (Lasix) 40 mg IVP BIDDIURETIC [facility] Stop: 03/18/18 17:01 Last Admin: 09/18/17 08:35 Dose: 40 mg Gabapentin (Neurontin) 300 mg PO BID [facility] Stop: 03/18/18 09:01 Last Admin: 09/18/17 08:36 Dose: 300 mg Glucagon (Glucagen) 1 mg IM ONCE PRN PRN Reason: Hypoglycemia Stop: 03/18/18 01:39 Glucose (Gluctose) 15 gm PO ONCE PRN PRN Reason: Hypoglycemia Stop: 03/18/18 01:39 Glucose (Gluctose) 30 gm PO ONCE PRN PRN Reason: Hypoglycemia Stop: 03/18/18 01:39 Dextrose (Dextrose 5%) 1,000 mls @ 100 mls/hr IVC .Q10H PRN PRN Reason: HYPOGLYCEMIA Stop: 03/18/18 01:39 Sodium Chloride (0.9 % Sodium Chloride) 250 mls @ 937.5 mls/hr IVC .Q16M PRN PRN Reason: Hypotension Stop: 03/19/18 08:21 Insulin Detemir (Levemir) 20 unit SQ BID [facility] Stop: 03/19/18 21:01 Last Admin: 09/18/17 09:31 Dose: 20 unit Insulin Human Lispro (Humalog) 0 units SQ HS [facility] PRN Reason: Protocol Stop: 03/19/18 21:01 Last Admin: 09/17/17 20:13 Dose: Not Given Insulin Human Lispro (Humalog) 0 units SQ TIDAC [facility] PRN Reason: Protocol Stop: 03/19/18 11:31 Last Admin: 09/18/17 08:35 Dose: 14 units Insulin Human Lispro (Humalog) 5 units SQ TIDWM [facility] Stop: 03/20/18 12:01 Isosorbide Mononitrate (Imdur) 30 mg PO DAILY [facility] Stop: 03/18/18 09:01 Last Admin: 09/18/17 08:36 Dose: 30 mg Metoprolol Tartrate (Lopressor) 50 mg PO BID [facility] Stop: 03/18/18 09:01 Last Admin: 09/18/17 08:36 Dose: Not Given Naloxone HCl (Narcan) 0.4 mg IVP Q2MIN PRN PRN Reason: Opioid Reversal Stop: 03/18/18 01:20 Ondansetron HCl (Zofran) 4 mg IVP Q6HR PRN PRN Reason: Nausea And Vomiting Stop: 03/18/18 01:20 Oxycodone HCl (Roxicodone) 10 mg PO Q6HR PRN PRN Reason: Moderate to Severe Pain (4-10) Stop: 03/18/18 01:35 Last Admin: 09/18/17 02:32 Dose: 10 mg Paroxetine HCl (Paxil) 20 mg PO QAM [facility] PRN Reason: Protocol Stop: 03/18/18 09:01 Last Admin: 09/18/17 08:36 Dose: 20 mg Simvastatin (Zocor) 40 mg PO HS [facility] Stop: 03/18/18 01:46 Last Admin: 09/17/17 20:13 Dose: 40 mg Tamsulosin HCl (Flomax) 0.4 mg PO DAILY [facility] PRN Reason: Protocol Stop: 03/18/18 09:01 Last Admin: 09/18/17 08:36 Dose: 0.4 mg - Imaging and Cardiology Stress Test: report reviewed Echo: report reviewed Cardiac cath: report reviewed - EKG Interpretation EKG results cardiology: personally reviewed (SR, LVH), other (12 hr tele AVG HR 60, SR, no significant pauses or arrhythmias.) Consult Discharge Plan - Plan [facility]errals: [facility] [Primary Care Provider] -
--- NOTE | 2017-09-18 13:04 | Internal Med Progress Note ---
Date of Encounter: 09/18/17 Time of Encounter: 10:00 - Assessment and plan (1) Nausea and vomiting Current Visit: Yes Status: Resolved Qualifiers: Vomiting type: unspecified Vomiting Intractability: non-intractable Qualified Code(s): R11.2 - Nausea with vomiting, unspecified (2) Acute exacerbation of congestive heart failure Current Visit: Yes Status: Acute Assessment and plan: Worsening fatigue, exertional dyspnea, pedal edema over last few months. Serial Troponins are flat and adynamic. Will receive hemodialysis per schedule. Continue Lasix, Imdur, beta sam, supplemental oxygen as needed. Echocardiogram reviewed-shows ejection fraction around 55%, mild concentric left ventricular hypertrophy, severe left ventricular diastolic dysfunction. Cardiology consulted, plan for LHC due to abnormal stress test and LHC in 2016; Qualifiers: Congestive heart failure type: diastolic Qualified Code(s): I50.33 - Acute on chronic diastolic (congestive) heart failure (3) Coronary artery disease Current Visit: Yes Status: Chronic Assessment and plan: Continue aspirin, Plavix, beta sam and statin. Serial troponins are flat and adynamic, around 0.05. Likely related to volume overload and underlying end -stage renal disease. Qualifiers: Coronary Disease-Associated Artery/Lesion type: bypass graft [place] vs. transplanted heart: [place] heart Associated angina: without angina Qualified Code(s): I25.810 - Atherosclerosis of coronary artery bypass graft(s) without angina pectoris (4) Diabetes mellitus Current Visit: Yes Status: Chronic Assessment and plan: Patient presented with hyperglycemia, did not meet criteria for DKA. Blood sugars noted to be improving, but intermittent high readings, we will increase bedtime basal insulin and continue sliding scale insulin, add nutritional insulin. Patient is noted to take high-dose of twice-daily short-acting insulin at home, which is erroneous. Continue Accu-Chek blood glucose monitoring. Diabetic diet as tolerated. Hemoglobin A1c noted to be 12.1% suggestive of poorly controlled diabetes. 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 Follows with oncology as outpatient. Continue Aranesp along with oral ferrous sulfate supplements. Qualifiers: Chronic kidney disease stage: on chronic dialysis Qualified Code(s): N18.6 - End stage renal disease; D63.1 - Anemia in chronic kidney disease; D63.1 - Anemia in chronic kidney disease; Z99.2 - Dependence on renal dialysis; Z99.2 - Dependence on renal dialysis; Z99.2 - Dependence on renal dialysis; Z99.2 - Dependence on renal dialysis (6) ESRD (end stage renal disease) on dialysis Current Visit: Yes Status: Chronic Assessment and plan: Nephrology consulted for hemodialysis needs. Receiving HD per schedule. (7) HLD (hyperlipidemia) Current Visit: Yes Status: Chronic Qualifiers: Hyperlipidemia type: unspecified Qualified Code(s): E78.5 - Hyperlipidemia , unspecified - Subjective Interval history: Feels tired today; no nausea, vomiting, abdominal pain, diarrhea; no chest pain ; - Constitutional Vitals: Temp Pulse Resp BP Pulse Ox 98.2 F 54 16 104/53 100 09/18/17 10:36 09/18/17 10:36 09/18/17 10:36 09/18/17 10:36 09/18/17 10:36 General appearance: Present: A&O X 3, answers questions appropriately - Respiratory Respiratory exam: Present: CTAB. Absent: accessory muscle use, rales, rhonchi, wheezes - Cardiovascular Cardiovascular exam: Present: RRR, +S1, +S2. Absent: diastolic murmur, gallop, rubs, systolic murmur - GI/Abdominal GI/Abdominal exam: Present: normal bowel sounds, soft, no peritoneal signs. Absent: distended, tenderness - Extremities Exam Extremities exam: Present: pedal edema, warm, radial pulses palpable and symmetrical. Absent: calf tenderness, cyanotic - Neurological Exam Neurological exam: Present: CN II-XII intact, oriented X3, no focal deficits. Absent: pronater drift, facial droop, speech deficit Internal Medicine: Result - Labs CBC & Chem 7: 09/18/17 05:34 09/18/17 05:34 Labs: Short CBC 09/18/17 Range/Units 05:34 WBC 2.3 L (4.3-11.1) K/mcL Hgb 7.9 L (12.9-16.9) g/dL Hct 23.9 L (37.5-50.1) % Plt Count 66 L (140-400) K/mcL Neutrophils # 1.3 L (1.6-8.9) K/mcL BMP 09/18/17 05:34 Sodium 135 L Potassium 4.5 Chloride 98 Carbon Dioxide 29 BUN 17 Creatinine 4.34 H Glucose 461 H Calcium 8.4 L Liver Function 09/18/17 Range/Units 05:34 Total Bilirubin 0.4 (0.2-1.2) mg/dL AST 13 (5-34) Units/L ALT 9 (0-55) Units/L Alkaline Phosphatase 136 H (38-126) Units/L Albumin 3.0 L (3.5-5.0) g/dL - VTE Documentation of Mechanical Device: Intermittent pneumatic compression device Consult Discharge Plan - Plan [facility]errals: [facility] [Primary Care Provider] -
[2017-09-18] MEDS: *HR* Dextrose 50 % in Water (Syg) 50 ML SYRINGE IVP PRN ×2 (14:18→16:06)
[2017-09-18] MEDS ORDERED: *HR* Heparin 10,000 UNIT/10 ML VIAL ONE (16:15)
[2017-09-18] MEDS ORDERED: 0.9 % Sodium Chloride 1,000 ML ONE ×2 (16:15→16:18)
[2017-09-18] MEDS ORDERED: Heparin 1,000 UNITS/500 mL NS 500 ML ONE (16:15)
[2017-09-18] MEDS ORDERED: Nitroglycerin 1,000 MCG/10 ML VIAL IV ONE (16:18)
--- NOTE | 2017-09-18 16:51 | Pre-Sedation Evaluation ---
Pre-sedation evaluation - Pre-sedation checklist Date of procedure: 09/18/17 Procedure: HEART CATH Recent Vitals: Last Vital Signs Temp 97.8 F 09/18/17 15:38 Pulse 63 09/18/17 15:38 Resp 22 09/18/17 15:38 BP 128/53 09/18/17 15:38 Pulse Ox 96 09/18/17 15:38 H&P (including ROS) documented in medical record: Yes Previous reaction to sedatives/anesthetics: No Dietary Status: NPO 6 hours prior to procedure Airway Assessment: Patient can open mouth completely, TMJ function normal Dentition: No loose teeth or bridges Possible difficult airway: No ASA Classification *see protocol: CLASS III-Severe systemic disease Plan of Care: Pt appropriate candidate for procedure/moderate/conscious sedation , Risks/benefits of procedure/sedation discussed w/ patient/family, If not NPO; Risk of intake outweiged by necessity to perform procedure
[2017-09-18] MEDS ORDERED: *HR* Midazolam HCl 2 MG/2 ML VIAL ONE ×2 (16:56→17:25)
--- NOTE | 2017-09-18 18:20 | Event Note ---
Date of Encounter: 09/18/17 Time of Encounter: 18:15 - Cardiology Event Note Left heart Cath results: EF 35%, ant, apical hypokinesis LMT distal 80% to 0% with 3.5 x 8 Synergy LAD - occluded prox Cirx, - mild distal disease OM1 chronic total occlusoin prox, filled distal by severlely diseased SVG. RCA - chronic total occlusoinpo LOPEZ - occluded proximal SVG to OM! -90% proximal lesion,extreemely tortuous, able to cross wire, but unable to cross with 1.5 mm balloon
[2017-09-19] MEDS: *HR* OxyCODONE Immed Rel 5 MG TABLET PO PRN ×3 (03:59→17:54)
[2017-09-19 04:11] LABS: Eosinophils % 1.2 %; Hematocrit 23.5 % (37.5-50.1); Immature Granulocytes % 0.4 % (0-4); Monocytes % 8.5 %; Red Cell Distribution Width 13.6 % (11.5-14.5)
[2017-09-19 04:13] LABS: Immature Platelets 7.3 % (1.1-6.1); Lymphocytes # 0.4 K/mcL (0.6-4.6); Lymphocytes % 17.1 %; Mean Corpuscular Hemoglobin 31.3 pg (28.0-33.3); Mean Corpuscular Volume 91.8 fL (83.0-100.0); Monocytes # 0.2 K/mcL (0.0-1.3); Neutrophils # 1.9 K/mcL (1.6-8.9); Red Blood Count 2.56 M/mcL (4.19-5.50); Segmented Neutrophils % 72.8 %
[2017-09-19 04:15] LABS: Platelet Count 63 K/mcL (140-400)
[2017-09-19 04:26] LABS: Calcium 8.7 mg/dL (8.6-10.8); Phosphorous 3.3 mg/dL (2.3-4.7); Potassium 4.3 mEq/L (3.5-4.5)
[2017-09-19] MEDS: Insulin LISPRO 300 UNITS/3 ML VIAL SQ SCH ×7 (08:07→20:47)
[2017-09-19] MEDS: Furosemide 40 MG/4 ML VIAL IVP SCH ×2 (08:09→17:54)
[2017-09-19] MEDS: Isosorbide MONOnitrate (24 HR) 30 MG TAB.ER.24H PO SCH (08:09)
[2017-09-19] MEDS: Gabapentin 300 MG CAPSULE PO SCH ×2 (08:10→20:46)
[2017-09-19] MEDS: Aspirin 81 MG TAB.CHEW PO SCH (08:10)
[2017-09-19] MEDS: Famotidine 20 MG TABLET PO SCH (08:10)
[2017-09-19] MEDS: Folic Acid 1 MG TABLET PO SCH (08:10)
[2017-09-19] MEDS ORDERED: 0.9 % Sodium Chloride 250 ML IVC PRN (09:08)
[2017-09-19] MEDS ORDERED: Insulin LISPRO 300 UNITS/3 ML VIAL SQ ONE ×3 (09:12→18:04)
[2017-09-19] MEDS ORDERED: 0.9 % Sodium Chloride 1,000 ML PRIME SCH (09:15)
--- NOTE | 2017-09-19 09:27 | Nephrology Progress Note ---
Date of Encounter: 09/19/17 Time of Encounter: 09:10 - Assessment and Plan (1) ESRD (end stage renal disease) on dialysis Current Visit: Yes Status: Chronic S/P LHC-stent x 1. HD today, keeping MWF schedule. Orders given. Subjective Interval history: S/P LHC. Laying quietly, denies chest pain. Objective - Vital Signs Vital signs: Vital Signs Temp Pulse Resp BP Pulse Ox 09/19/17 07:34 98.2 F 70 17 128/70 92 09/19/17 03:34 98.3 F 18 159/67 94 09/18/17 23:35 97.6 F 70 16 169/77 93 09/18/17 21:15 97.4 F L 66 16 171/73 93 09/18/17 20:15 97.7 F 68 18 138/66 100 09/18/17 19:45 97.3 F L 59 14 130/56 97 09/18/17 19:19 98.2 F 57 17 139/67 97 09/18/17 19:01 58 12 131/62 96 09/18/17 18:37 97.6 F 57 10 127/64 97 09/18/17 17:15 97.4 F L 56 12 132/71 97 09/18/17 15:38 97.8 F 63 22 128/53 96 09/18/17 10:36 98.2 F 54 16 104/53 100 Intake and Output 09/18/17 09/19/17 09/19/17 23:59 07:59 15:59 Intake Total 0 / 0 400 / 400 Output Total 300 / 300 Balance 0 / 0 -300 / -300 400 / 400 Intake: Oral 0 / 0 400 / 400 Output: Urine 300 / 300 Other: Meal Dinner Percent of Meal Consumed 0% Weight 96.706 kg Blood Glucose* 98 427 444 Patient Weight 09/19/17 23:59 Weight 96.706 kg - General Appearance General appearance: Present: well-developed, well-nourished, appears started age EENT: Present: mucous membranes moist Neck: Present: no JVD Respiratory: Present: clear Cardiology: Present: no edema, regular rate, regular rhythm Gastrointestinal: Present: normoactive bowel sounds, no tenderness Integumentary: Present: warm and dry Neurologic: Present: alert and oriented x3 Psychiatric: Present: mood/affect appropriate, cooperative - Lab 09/19/17 04:01 09/19/17 04:01 Most recent lab results Calcium 8.7 mg/dL (8.6-10.8) 09/19/17 04:01 Phosphorus 3.3 mg/dL (2.3-4.7) 09/19/17 04:01 Magnesium 1.6 mg/dL (1.6-2.6) 09/18/17 05:34 - VTE Documentation of Mechanical Device: Intermittent pneumatic compression device Consult Discharge Plan - Plan Referrals: [facility] [Primary Care Provider] -
--- NOTE | 2017-09-19 09:49 | Cardiology Progress Note ---
Date of Encounter: 09/19/17 Time of Encounter: 09:44 Assessment and Plan (1) Coronary artery disease Current Visit: Yes Status: Chronic Hx of CABG, CABG redo and PCI. S/P C yesterday for anginal equivalent symptoms--PCI/ABBI to LM artery 80% distal stenosis. LAD occluded proximally, LCx with mid to distal disease, OM1 ADJUNCT PROFESSOR OF VOICE proximal filled distal by severely diseased SVG. RCA ADJUNCT PROFESSOR OF VOICE. The LOPEZ is occluded proximally, SVG-OM1 90% proximal lesion was extremely tortuous, able to cross wire but unable to cross balloon. Final cath report pending. EF on cath estimated to be 35%. However, Echo this admission shows EF preserved, severe diastolic dysfunction. DAPT (ASA and Plavix) uninterrupted x 1 year. Pt verbalizes understanding. Continue BB and Statin. Will increase Imdur to 60mg daily given his significant CAD. Right femoral access site healing well. No bleeding, hematoma or ecchymosis noted. Restrictions discussed. Cardiology signing off. Reconsult PRN. Follow-up as outpt in 2 weeks. Will coordinate. Qualifiers: Coronary Disease-Associated Artery/Lesion type: bypass graft [place] vs. transplanted heart: [place] heart Associated angina: without angina Qualified Code(s): I25.810 - Atherosclerosis of coronary artery bypass graft(s) without angina pectoris (2) Diastolic CHF, acute on chronic Current Visit: Yes Status: Acute BNP 2618 (baseline 500s-600s). Also in setting of ESRD on dialysis. Worsening dyspnea x 4-5 weeks. Makes urine output, agree with IV Lasix 40mg BID for diuresis and also dialysis to help achieve optimal fluid volume status. Imaging consistent with CHF and pleural effusions. Echo EF preserved, severe diastolic dysfunction. Strict I/Os, Na and fluid restriction, daily weights. (3) Anemia in CKD (chronic kidney disease) Current Visit: Yes Status: Chronic Chronic anemia and pancytopenic. Within previous baseline range. Continue ASA and Plavix. Qualifiers: Chronic kidney disease stage: on chronic dialysis Qualified Code(s): N18.6 - End stage renal disease; D63.1 - Anemia in chronic kidney disease; D63.1 - Anemia in chronic kidney disease; Z99.2 - Dependence on renal dialysis; Z99.2 - Dependence on renal dialysis; Z99.2 - Dependence on renal dialysis; Z99.2 - Dependence on renal dialysis Discussion w patient/family: The assessment and plan as outlined above was discussed with the patient and/or family members who expressed understanding and agreement. All questions were answered. Thank you for involving us in the care of your patient. Please call with any questions. I will discuss all the above with Dr. Perdomo and make changes as necessary. Subjective Principal diagnosis: CAD, CHF Interval history: S/P C yesterday--PCI/ABBI to LM artery 80% distal stenosis. LAD occluded proximally, LCx with mid to distal disease, OM1 ADJUNCT PROFESSOR OF VOICE proximal filled distal by severely diseased SVG. RCA ADJUNCT PROFESSOR OF VOICE. The LOPEZ is occluded proximally, SVG-OM1 90% proximal lesion was extremely tortuous, able to cross wire but unable to cross balloon. Final cath report pending. EF on cath estimated 35%. Reports breathing has improved from admission. Denies chest pain. Objective Vital Signs, Last 4 Hours Temp Pulse Resp BP Pulse Ox 09/19/17 07:34 98.2 F 70 17 128/70 92 Vital Signs Temp Pulse Resp BP Pulse Ox 09/19/17 07:34 98.2 F 70 17 128/70 92 09/19/17 03:34 98.3 F 18 159/67 94 09/18/17 23:35 97.6 F 70 16 169/77 93 09/18/17 21:15 97.4 F L 66 16 171/73 93 09/18/17 20:15 97.7 F 68 18 138/66 100 09/18/17 19:45 97.3 F L 59 14 130/56 97 09/18/17 19:19 98.2 F 57 17 139/67 97 09/18/17 19:01 58 12 131/62 96 09/18/17 18:37 97.6 F 57 10 127/64 97 09/18/17 17:15 97.4 F L 56 12 132/71 97 09/18/17 15:38 97.8 F 63 22 128/53 96 09/18/17 10:36 98.2 F 54 16 104/53 100 Intake and Output 09/18/17 09/19/17 09/19/17 23:59 07:59 15:59 Intake Total 0 / 0 400 / 400 Output Total 300 / 300 Balance 0 / 0 -300 / -300 400 / 400 Intake: Oral 0 / 0 400 / 400 Output: Urine 300 / 300 Other: Meal Dinner Percent of Meal Consumed 0% Weight 96.706 kg Blood Glucose* 98 427 444 Patient Weight 09/19/17 23:59 Weight 96.706 kg General: Conversant, No Apparent Distress HEENT: Atraumatic, Normocephaly, Mucus Membranes Moist Neck: Normal carotid pulses Cardiac: Reg Rate and Rhythm, Normal S1 and S2, No Murmur Lungs: Other (diminished) Neuro: Alert and responsive, No focal deficits noted Abdomen: Soft, Non-Tender Skin: Other (right femoral access site healing well. No bleeding, hematoma or ecchymosis noted.) Musculoskeletal: No Chest Wall Tenderness Extremities: No Clubbing, No Cyanosis, No Edema, Normal Pulses Results 09/19/17 04:01 09/19/17 04:01 Lab Results 09/19/17 09/19/17 04:01 04:01 WBC 2.6 L Hgb 8.0 L Hct 23.5 L Plt Count 63 L Sodium 136 Potassium 4.3 Chloride 101 Carbon Dioxide 25 BUN 23 Creatinine 5.11 H Glucose 286 H Calcium 8.7 Short CBC 09/19/17 Range/Units 04:01 WBC 2.6 L (4.3-11.1) K/mcL Hgb 8.0 L (12.9-16.9) g/dL Hct 23.5 L (37.5-50.1) % Plt Count 63 L (140-400) K/mcL Neutrophils # 1.9 (1.6-8.9) K/mcL BMP 09/19/17 Range/Units 04:01 Sodium 136 (136-145) mEq/L Potassium 4.3 (3.5-4.5) mEq/L Chloride 101 (98-109) mEq/L Carbon Dioxide 25 (19-29) mEq/L BUN 23 (8-26) mg/dL Creatinine 5.11 H (0.72-1.25) mg/dL Glucose 286 H (70-99) mg/dL Calcium 8.7 (8.6-10.8) mg/dL Liver Function 09/19/17 Range/Units 04:01 Albumin 3.0 L (3.5-5.0) g/dL Active Medications Acetaminophen (Tylenol) 650 mg PO Q6HR PRN PRN Reason: Mild Pain (1-3) Stop: 03/18/18 01:20 Aspirin (Aspirin) 81 mg PO DAILY [facility] Stop: 03/18/18 09:01 Last Admin: 09/19/17 08:10 Dose: 81 mg Calcium Acetate (Phos-Lo) 1,334 mg PO TIDWM [facility] Stop: 03/18/18 08:01 Last Admin: 09/18/17 16:06 Dose: Not Given Clopidogrel Bisulfate (Plavix) 75 mg PO DAILY [facility] Stop: 03/18/18 09:01 Last Admin: 09/19/17 08:10 Dose: 75 mg Darbepoetin Jordi (Aranesp) 100 mcg SQ Tu@0900 [facility] Stop: 03/18/18 13:01 Last Admin: 09/16/17 13:59 Dose: 100 mcg Dextrose/Water (Dextrose 50% (Syg)) 25 ml IVP AD PRN PRN Reason: Hypoglycemia Stop: 03/18/18 01:39 Last Admin: 09/18/17 16:06 Dose: 25 ml Docusate Sodium (Colace) 100 mg PO BID PRN PRN Reason: Constipation Stop: 03/18/18 01:20 Famotidine (Pepcid) 20 mg PO DAILY ЕЛЕНА PRN Reason: Protocol Stop: 03/19/18 09:01 Last Admin: 09/19/17 08:10 Dose: 20 mg Ferrous Sulfate (Ferrous Sulfate) 325 mg PO DAILY@0800 [facility] Stop: 03/18/18 08:01 Last Admin: 09/19/17 08:10 Dose: 325 mg Folic Acid (Folic Acid) 2 mg PO DAILY ЕЛЕНА Stop: 03/18/18 09:01 Last Admin: 09/19/17 08:10 Dose: 2 mg Furosemide (Lasix) 40 mg IVP BIDDIURETIC ЕЛЕНА Stop: 03/18/18 17:01 Last Admin: 09/19/17 08:09 Dose: 40 mg Gabapentin (Neurontin) 300 mg PO BID ЕЛЕНА Stop: 03/18/18 09:01 Last Admin: 09/19/17 08:10 Dose: 300 mg Glucagon (Glucagen) 1 mg IM ONCE PRN PRN Reason: Hypoglycemia Stop: 03/18/18 01:39 Glucose (Gluctose) 15 gm PO ONCE PRN PRN Reason: Hypoglycemia Stop: 03/18/18 01:39 Glucose (Gluctose) 30 gm PO ONCE PRN PRN Reason: Hypoglycemia Stop: 03/18/18 01:39 Dextrose (Dextrose 5%) 1,000 mls @ 100 mls/hr IVC .Q10H PRN PRN Reason: HYPOGLYCEMIA Stop: 03/18/18 01:39 Sodium Chloride (0.9 % Sodium Chloride) 250 mls @ 937.5 mls/hr IVC .Q16M PRN PRN Reason: Hypotension Stop: 03/19/18 08:21 Sodium Chloride (0.9 % Sodium Chloride) 250 mls @ 937.5 mls/hr IVC .Q16M PRN PRN Reason: Hypotension Stop: 03/21/18 09:09 Sodium Chloride (0.9 % Sodium Chloride) 1,000 mls @ 0 mls/hr PRIME .Q0M ЕЛЕНА PRN Reason: As Directed Stop: 03/21/18 09:16 Insulin Detemir (Levemir) 20 unit SQ BID [facility] Stop: 03/19/18 21:01 Last Admin: 09/18/17 21:27 Dose: 20 unit Insulin Human Lispro (Humalog) 0 units SQ HS [facility] PRN Reason: Protocol Stop: 03/19/18 21:01 Last Admin: 09/18/17 21:29 Dose: Not Given Insulin Human Lispro (Humalog) 0 units SQ TIDAC [facility] PRN Reason: Protocol Stop: 03/19/18 11:31 Last Admin: 09/19/17 08:09 Dose: 16 units Insulin Human Lispro (Humalog) 5 units SQ TIDWM [facility] Stop: 03/20/18 12:01 Last Admin: 09/19/17 08:07 Dose: 5 units Isosorbide Mononitrate (Imdur) 30 mg PO DAILY [facility] Stop: 03/18/18 09:01 Last Admin: 09/19/17 08:09 Dose: 30 mg Metoprolol Tartrate (Lopressor) 50 mg PO BID [facility] Stop: 03/18/18 09:01 Last Admin: 09/19/17 08:09 Dose: 50 mg Naloxone HCl (Narcan) 0.4 mg IVP Q2MIN PRN PRN Reason: Opioid Reversal Stop: 03/18/18 01:20 Ondansetron HCl (Zofran) 4 mg IVP Q6HR PRN PRN Reason: Nausea And Vomiting Stop: 03/18/18 01:20 Oxycodone HCl (Roxicodone) 10 mg PO Q6HR PRN PRN Reason: Moderate to Severe Pain (4-10) Stop: 03/18/18 01:35 Last Admin: 09/19/17 03:59 Dose: 10 mg Paroxetine HCl (Paxil) 20 mg PO QAM ЕЛЕНА PRN Reason: Protocol Stop: 03/18/18 09:01 Last Admin: 09/19/17 08:09 Dose: 20 mg Simvastatin (Zocor) 40 mg PO HS ЕЛЕНА Stop: 03/18/18 01:46 Last Admin: 09/18/17 21:27 Dose: 40 mg Tamsulosin HCl (Flomax) 0.4 mg PO DAILY ЕЛЕНА PRN Reason: Protocol Stop: 03/18/18 09:01 Last Admin: 09/19/17 08:09 Dose: 0.4 mg - VTE Documentation of Mechanical Device: Intermittent pneumatic compression device Consult Discharge Plan - Plan Additional Instructions: RISK FACTORS: STOP SMOKING: If you smoke, STOP. Smoking or tobacco use significantly increases your risk of heart disease because nicotine causes the arteries to narrow or constrict. It also causes fats to stick to the artery. Your chances of having a heart attack are greatly increased if you continue to smoke. For more information, call the education line for smoking cessation 2-358-MYUGUOK EAT A LOW FAT/CHOLESTEROL/SODIUM DIET: This diet may help reduce your chances of having a heart attack. LIFTING: Avoid lifting anything more than 10 pounds for 5-7 days Prior to straining, laughing, sneezing and/or coughing, apply manual pressure directly over insertion site. ACTIVITY: You may walk or climb stairs as tolerated You can resume sexual activity as tolerated In general, you are encouraged to engage in a minimum of 30 minutes or more of moderate intensity physical activity, such as brisk walking, daily or at least 3 -4 times weekly BATHING Do not submerge the site into water (bath tub, hot tub, swimming pool) for 1 week. This can be a source for infection into the blood stream. You may shower after 24 hours SITE CARE: After 24 hours, you may remove the dressing and leave the site open to air. Keep the site clean and dry. Clean gently and pat dry. You can expect bruising and tenderness that gradually resolve within a week or two. Return to work as instructed per your physician Resume driving as instructed per physician Keep all scheduled follow up appointments Resume medications as instructed IMPORTANT: If prescribed a Platelet Aggregation Inhibitor such as, Plavix, Brilinta or Effient: Duration of therapy is minimum one year These medications are often used in combination with Aspirin in prevention of future heart attacks Never discontinue unless consult with your Painting Worker STROKE (CVA) Risk factors for a stroke are: Age, cigarette smoking, diabetes, excessive alcohol consumption, family history, high blood pressure, overweight, physical inactivity, prior stroke, heart attack, diagnosis of carotid artery stenosis or other artery disease. Warning signs: Sudden numbness or weakness of the face, arm or leg; especially on one side of the body, sudden confusion, trouble speaking or understanding, sudden trouble seeing in one or both eyes, sudden trouble walking, dizziness, loss of balance or coordination, sudden severe headache with no cause. Call 911 or go to the Emergency Room. CONGESTIVE HEART FAILURE: If you have been diagnosed with Congestive Heart Failure (CHF) and your symptoms return, make an appointment with your physician Weigh yourself daily. Notify your physician if you have a weight gain of two or more pounds in one day or five or more pounds in one week. If you experience any difficulty breathing, please call 911 BLEEDING: Although the risk of bleeding is minimal, it can happen. If you have any bleeding from the site, apply firm pressure above the puncture site for 10-15 minutes. If the bleeding does not stop, continue manual pressure and call 911 Contact your physician if: You develop a fever greater than 101 degrees Fahrenheit Your site becomes reddened or has any drainage You have an increase in pain or burning at the site or if a large knot forms at the site. If you experience chest pain, shortness of breath, dizziness, or extreme tiredness, stop the activity and rest. Please notify your physicians office if you experience any of these symptoms and they are not relieved by rest please call 911! [facility]errals: [facility] [Primary Care Provider[facility] -
[2017-09-19] MEDS: Calcium Acetate 667 MG CAPSULE PO SCH ×3 (10:39→18:46)
--- NOTE | 2017-09-19 16:55 | Internal Med Progress Note ---
Date of Encounter: 09/19/17 Time of Encounter: 15:15 - Assessment and plan (1) Bronchitis Current Visit: Yes Status: Acute (2) Diabetes mellitus Current Visit: Yes Status: Chronic Qualifiers: Diabetes mellitus type: type 2 Diabetes mellitus complication status: with kidney complications Diabetes mellitus complication detail: with chronic kidney disease Diabetes mellitus tank terminal gauger insulin use: with tank terminal gauger use Chronic kidney disease stage: on chronic dialysis Qualified Code(s): E11.22 - Type 2 diabetes mellitus with diabetic chronic kidney disease; N18.6 - End stage renal disease; Z99.2 - Dependence on renal dialysis; Z99.2 - Dependence on renal dialysis; Z99.2 - Dependence on renal dialysis; N18.6 - End stage renal disease; N18.6 - End stage renal disease; N18.6 - End stage renal disease ; Z79.4 - FPC (current) use of insulin; Z79.4 - FPC (current) use of insulin; Z79.4 - FPC (current) use of insulin; Z79.4 - FPC ( current) use of insulin; Z99.2 - Dependence on renal dialysis (3) Anemia Current Visit: Yes Status: Acute Qualifiers: Anemia type: due to chronic kidney disease Chronic kidney disease stage: on chronic dialysis Qualified Code(s): N18.6 - End stage renal disease; D63.1 - Anemia in chronic kidney disease; D63.1 - Anemia in chronic kidney disease; Z99.2 - Dependence on renal dialysis; Z99.2 - Dependence on renal dialysis; Z99.2 - Dependence on renal dialysis; Z99.2 - Dependence on renal dialysis - Subjective Interval history: Patient is complaining of trouble swallowing occasionally had a very high blood sugar this morning, he is complaining of generalized body aching. - Constitutional Vitals: Temp Pulse Resp BP Pulse Ox 98.6 F 58 17 123/54 96 09/19/17 15:56 09/19/17 15:56 09/19/17 15:56 09/19/17 15:56 09/19/17 15:56 General appearance: Present: A&O X 3, pleasant, no acute distress, answers questions appropriately - Head Head exam: Present: atraumatic, normocephalic - Neck Neck exam general surgery: Present: supple, trachea midline. Absent: lymphadenopathy - Respiratory Respiratory exam: Present: decreased breath sounds, prolonged expiratory phase, rales (Left upper and lower lobe). Absent: accessory muscle use, rhonchi, wheezes - Cardiovascular Cardiovascular exam: Present: RRR, +S1, +S2. Absent: diastolic murmur, gallop, rubs, systolic murmur - GI/Abdominal GI/Abdominal exam: Present: normal bowel sounds, soft, no peritoneal signs. Absent: distended, tenderness - Extremities Exam Extremities exam: Present: warm, radial pulses palpable and symmetrical. Absent : calf tenderness, cyanotic, pedal edema Internal Medicine: Result - Labs CBC & Chem 7: 09/19/17 04:01 09/19/17 04:01 Labs: Short CBC 09/19/17 Range/Units 04:01 WBC 2.6 L (4.3-11.1) K/mcL Hgb 8.0 L (12.9-16.9) g/dL Hct 23.5 L (37.5-50.1) % Plt Count 63 L (140-400) K/mcL Neutrophils # 1.9 (1.6-8.9) K/mcL BMP 09/19/17 04:01 Sodium 136 Potassium 4.3 Chloride 101 Carbon Dioxide 25 BUN 23 Creatinine 5.11 H Glucose 286 H Calcium 8.7 Liver Function 09/19/17 Range/Units 04:01 Albumin 3.0 L (3.5-5.0) g/dL - VTE Documentation of Mechanical Device: Intermittent pneumatic compression device Consult Discharge Plan - Plan Additional Instructions: RISK FACTORS: STOP SMOKING: If you smoke, STOP. Smoking or tobacco use significantly increases your risk of heart disease because nicotine causes the arteries to narrow or constrict. It also causes fats to stick to the artery. Your chances of having a heart attack are greatly increased if you continue to smoke. For more information, call the education line for smoking cessation 9-516-RZHNWKD EAT A LOW FAT/CHOLESTEROL/SODIUM DIET: This diet may help reduce your chances of having a heart attack. LIFTING: Avoid lifting anything more than 10 pounds for 5-7 days Prior to straining, laughing, sneezing and/or coughing, apply manual pressure directly over insertion site. ACTIVITY: You may walk or climb stairs as tolerated You can resume sexual activity as tolerated In general, you are encouraged to engage in a minimum of 30 minutes or more of moderate intensity physical activity, such as brisk walking, daily or at least 3 -4 times weekly BATHING Do not submerge the site into water (bath tub, hot tub, swimming pool) for 1 week. This can be a source for infection into the blood stream. You may shower after 24 hours SITE CARE: After 24 hours, you may remove the dressing and leave the site open to air. Keep the site clean and dry. Clean gently and pat dry. You can expect bruising and tenderness that gradually resolve within a week or two. Return to work as instructed per your physician Resume driving as instructed per physician Keep all scheduled follow up appointments Resume medications as instructed IMPORTANT: If prescribed a Platelet Aggregation Inhibitor such as, Plavix, Brilinta or Effient: Duration of therapy is minimum one year These medications are often used in combination with Aspirin in prevention of future heart attacks Never discontinue unless consult with your Spray Drier STROKE (CVA) Risk factors for a stroke are: Age, cigarette smoking, diabetes, excessive alcohol consumption, family history, high blood pressure, overweight, physical inactivity, prior stroke, heart attack, diagnosis of carotid artery stenosis or other artery disease. Warning signs: Sudden numbness or weakness of the face, arm or leg; especially on one side of the body, sudden confusion, trouble speaking or understanding, sudden trouble seeing in one or both eyes, sudden trouble walking, dizziness, loss of balance or coordination, sudden severe headache with no cause. Call 911 or go to the Emergency Room. CONGESTIVE HEART FAILURE: If you have been diagnosed with Congestive Heart Failure (CHF) and your symptoms return, make an appointment with your physician Weigh yourself daily. Notify your physician if you have a weight gain of two or more pounds in one day or five or more pounds in one week. If you experience any difficulty breathing, please call 911 BLEEDING: Although the risk of bleeding is minimal, it can happen. If you have any bleeding from the site, apply firm pressure above the puncture site for 10-15 minutes. If the bleeding does not stop, continue manual pressure and call 911 Contact your physician if: You develop a fever greater than 101 degrees Fahrenheit Your site becomes reddened or has any drainage You have an increase in pain or burning at the site or if a large knot forms at the site. If you experience chest pain, shortness of breath, dizziness, or extreme tiredness, stop the activity and rest. Please notify your physicians office if you experience any of these symptoms and they are not relieved by rest please call 911! [facility]errals: [facility] [Primary Care Provider[facility] -
[2017-09-19] MEDS ORDERED: 0.9 % Sodium Chloride 2,000 ML ONE (17:13)
[2017-09-19] MEDS: Insulin DETEMIR 100 UNIT/ML X5UNITS SQ SCH ×2 (17:36→20:47)
[2017-09-19] MEDS: traMADol 50 MG TABLET PO SCH (20:46)
[2017-09-20 07:06] LABS: % Iron Saturation 20 % (20-55); Iron 43 mcg/dL (65-175); Transferrin 156 mg/dL (174-364)
[2017-09-20] MEDS: Insulin LISPRO 300 UNITS/3 ML VIAL SQ SCH ×7 (07:31→20:49)
--- NOTE | 2017-09-20 08:43 | Nephrology Progress Note ---
Date of Encounter: 09/20/17 Time of Encounter: 08:25 - Assessment and Plan (1) ESRD (end stage renal disease) on dialysis Current Visit: Yes Status: Chronic S/P LHC-stent x 1. No HD today, keeping MWF schedule. Subjective Principal diagnosis: CAD, CHF Interval history: S/P LHC. Sitting on edge of bed. Ate breakfast. Denies chest pain or nausea. Objective - Vital Signs Vital signs: Vital Signs Temp Pulse Resp BP Pulse Ox 09/20/17 06:21 98.5 F 76 17 130/66 95 09/20/17 04:42 98.2 F 58 18 108/55 94 09/20/17 00:27 98.6 F 56 18 130/66 94 09/19/17 20:34 98.7 F 09/19/17 19:07 99.1 F 64 16 129/62 92 09/19/17 15:56 98.6 F 58 17 123/54 96 09/19/17 14:30 97.9 F 15 108/51 09/19/17 14:20 103/55 09/19/17 14:05 102/58 09/19/17 13:50 113/44 09/19/17 13:35 94/63 09/19/17 13:20 98/65 09/19/17 13:05 104/47 09/19/17 12:50 111/59 09/19/17 12:35 117/45 09/19/17 12:20 100/46 09/19/17 12:05 101/56 09/19/17 11:50 111/58 09/19/17 11:35 113/58 09/19/17 11:20 97.8 F 17 129/63 09/19/17 10:21 98.8 F 55 17 143/63 92 Intake and Output 09/19/17 09/20/17 09/20/17 23:59 07:59 15:59 Intake Total 720 / 720 Balance 720 / 720 Intake: Oral 720 / 720 Other: Meal Breakfast Percent of Meal Consumed 100% # Voids 1 Weight 96.887 kg Blood Glucose* 205 129 Patient Weight 09/20/17 23:59 Weight 96.887 kg - General Appearance General appearance: Present: well-developed, well-nourished, appears started age EENT: Present: mucous membranes moist Neck: Present: no JVD Respiratory: Present: clear Cardiology: Present: no edema, regular rate, regular rhythm Gastrointestinal: Present: normoactive bowel sounds, no tenderness Integumentary: Present: warm and dry Neurologic: Present: alert and oriented x3 Psychiatric: Present: mood/affect appropriate, cooperative - Lab 09/19/17 04:01 09/19/17 04:01 Most recent lab results Calcium 8.7 mg/dL (8.6-10.8) 09/19/17 04:01 Phosphorus 3.3 mg/dL (2.3-4.7) 09/19/17 04:01 Magnesium 1.6 mg/dL (1.6-2.6) 09/18/17 05:34 - VTE Documentation of Mechanical Device: Intermittent pneumatic compression device Consult Discharge Plan - Plan Additional Instructions: RISK FACTORS: STOP SMOKING: If you smoke, STOP. Smoking or tobacco use significantly increases your risk of heart disease because nicotine causes the arteries to narrow or constrict. It also causes fats to stick to the artery. Your chances of having a heart attack are greatly increased if you continue to smoke. For more information, call the education line for smoking cessation 5-236-HMLIRLY EAT A LOW FAT/CHOLESTEROL/SODIUM DIET: This diet may help reduce your chances of having a heart attack. LIFTING: Avoid lifting anything more than 10 pounds for 5-7 days Prior to straining, laughing, sneezing and/or coughing, apply manual pressure directly over insertion site. ACTIVITY: You may walk or climb stairs as tolerated You can resume sexual activity as tolerated In general, you are encouraged to engage in a minimum of 30 minutes or more of moderate intensity physical activity, such as brisk walking, daily or at least 3 -4 times weekly BATHING Do not submerge the site into water (bath tub, hot tub, swimming pool) for 1 week. This can be a source for infection into the blood stream. You may shower after 24 hours SITE CARE: After 24 hours, you may remove the dressing and leave the site open to air. Keep the site clean and dry. Clean gently and pat dry. You can expect bruising and tenderness that gradually resolve within a week or two. Return to work as instructed per your physician Resume driving as instructed per physician Keep all scheduled follow up appointments Resume medications as instructed IMPORTANT: If prescribed a Platelet Aggregation Inhibitor such as, Plavix, Brilinta or Effient: Duration of therapy is minimum one year These medications are often used in combination with Aspirin in prevention of future heart attacks Never discontinue unless consult with your [employer] Storage Architect STROKE (CVA) Risk factors for a stroke are: Age, cigarette smoking, diabetes, excessive alcohol consumption, family history, high blood pressure, overweight, physical inactivity, prior stroke, heart attack, diagnosis of carotid artery stenosis or other artery disease. Warning signs: Sudden numbness or weakness of the face, arm or leg; especially on one side of the body, sudden confusion, trouble speaking or understanding, sudden trouble seeing in one or both eyes, sudden trouble walking, dizziness, loss of balance or coordination, sudden severe headache with no cause. Call 911 or go to the Emergency Room. CONGESTIVE HEART FAILURE: If you have been diagnosed with Congestive Heart Failure (CHF) and your symptoms return, make an appointment with your physician Weigh yourself daily. Notify your physician if you have a weight gain of two or more pounds in one day or five or more pounds in one week. If you experience any difficulty breathing, please call 911 BLEEDING: Although the risk of bleeding is minimal, it can happen. If you have any bleeding from the site, apply firm pressure above the puncture site for 10-15 minutes. If the bleeding does not stop, continue manual pressure and call 911 Contact your physician if: You develop a fever greater than 101 degrees Fahrenheit Your site becomes reddened or has any drainage You have an increase in pain or burning at the site or if a large knot forms at the site. If you experience chest pain, shortness of breath, dizziness, or extreme tiredness, stop the activity and rest. Please notify your physicians office if you experience any of these symptoms and they are not relieved by rest please call 911! [facility]: [facility] [Primary Care Provider[facility] -
[2017-09-20] MEDS: Calcium Acetate 667 MG CAPSULE PO SCH ×3 (09:49→17:39)
[2017-09-20] MEDS: Insulin DETEMIR 100 UNIT/ML X5UNITS SQ SCH ×2 (09:50→22:23)
[2017-09-20] MEDS: Furosemide 40 MG/4 ML VIAL IVP SCH ×2 (09:51→17:39)
[2017-09-20] MEDS: Folic Acid 1 MG TABLET PO SCH (09:51)
[2017-09-20] MEDS: traMADol 50 MG TABLET PO SCH ×3 (09:51→20:02)
[2017-09-20] MEDS: Famotidine 20 MG TABLET PO SCH ×2 (09:51→19:52)
[2017-09-20] MEDS: Gabapentin 300 MG CAPSULE PO SCH ×2 (09:52→20:02)
[2017-09-20] MEDS: Isosorbide MONOnitrate (24 HR) 60 MG TAB.ER.24H PO SCH (09:52)
[2017-09-20] MEDS: Aspirin 81 MG TAB.CHEW PO SCH (09:52)
[2017-09-20] MEDS ORDERED: Iron Sucrose Complex 250 MG in 0.9 % Sodium Chloride 250 ML IVPB ONE (11:30)
[2017-09-20 16:25] LABS: Hematocrit 22.7 % (37.5-50.1); Hemoglobin 7.6 g/dL (12.9-16.9)
[2017-09-20] MEDS ORDERED: Lactulose Oral Soln 20 GM/30 ML UDC PO ONE (18:14)
[2017-09-20] MEDS ORDERED: Sennosides/Docusate Sodium TABLET PO PRN (18:14)
--- NOTE | 2017-09-20 18:51 | Internal Med Progress Note ---
Date of Encounter: 09/20/17 Time of Encounter: 15:45 - Assessment and plan (1) Bronchitis Current Visit: Yes Status: Acute (2) Diabetes mellitus Current Visit: Yes Status: Chronic Qualifiers: Diabetes mellitus type: type 2 Diabetes mellitus complication status: with kidney complications Diabetes mellitus complication detail: with chronic kidney disease Diabetes mellitus documentation clerk insulin use: with documentation clerk use Chronic kidney disease stage: on chronic dialysis Qualified Code(s): E11.22 - Type 2 diabetes mellitus with diabetic chronic kidney disease; N18.6 - End stage renal disease; Z99.2 - Dependence on renal dialysis; Z99.2 - Dependence on renal dialysis; Z99.2 - Dependence on renal dialysis; N18.6 - End stage renal disease; N18.6 - End stage renal disease; N18.6 - End stage renal disease ; Z79.4 - halfway (current) use of insulin; Z79.4 - halfway (current) use of insulin; Z79.4 - halfway (current) use of insulin; Z79.4 - halfway ( current) use of insulin; Z99.2 - Dependence on renal dialysis (3) Anemia Current Visit: Yes Status: Acute Qualifiers: Anemia type: due to chronic kidney disease Chronic kidney disease stage: on chronic dialysis Qualified Code(s): N18.6 - End stage renal disease; D63.1 - Anemia in chronic kidney disease; D63.1 - Anemia in chronic kidney disease; Z99.2 - Dependence on renal dialysis; Z99.2 - Dependence on renal dialysis; Z99.2 - Dependence on renal dialysis; Z99.2 - Dependence on renal dialysis (4) Constipation Current Visit: Yes Status: Acute Qualifiers: Constipation type: slow transit constipation Qualified Code(s): K59.01 - Slow transit constipation (5) GERD (gastroesophageal reflux disease) Current Visit: Yes Status: Acute Qualifiers: Esophagitis presence: without esophagitis Qualified Code(s): K21.9 - Gastro -esophageal reflux disease without esophagitis - Time Spent With Patient Hx of CABG, CABG redo and PCI.S/P [facility] yesterday for anginal equivalent symptoms- -PCI/ABBI to LM artery 80% distal stenosis. LAD occluded proximally, LCx with mid to distal disease, OM1 MASTER HEARTH TECHNICIAN proximal filled distal by severely diseased SVG. RCA MASTER HEARTH TECHNICIAN. The LOPEZ is occluded proximally, SVG-OM1 90% proximal lesion was extremely tortuous, able to cross wire but unable to cross balloon. EF on cath estimated to be 35%. Patient hemoglobin is trending down, received Aranesp . We will transfuse 1 unit of blood, add Protonix twice a day, check hemoglobin at every morning, add laxative, close monitoring of patient's symptom, with his significant coronary artery disease keep hemoglobin more than 8. With his recent stent to continue Plavix for now, repeat chest x-ray consistent and clinical exam consistent with pneumonia. Admit Augmentin and doxycycline, glucose monitoring of patient's symptom, add Mucinex twice a day, aerosol treatment every 6 hour. Incentive spirometry Greater than 35 minutes - Subjective Interval history: Patient is feeling tired. Patient denies any bowel movement since admission. Drop of his hemoglobin compared to his baseline. Patient has a symptoms of gastroesophageal reflux disease. - Constitutional Vitals: Temp Pulse Resp BP Pulse Ox 98.3 F 59 18 127/64 96 09/20/17 16:31 09/20/17 16:31 09/20/17 16:31 09/20/17 16:31 09/20/17 16:31 General appearance: Present: A&O X 3, pleasant, no acute distress - Head Head exam: Present: atraumatic, normocephalic - Neck Neck exam general surgery: Present: supple, trachea midline. Absent: lymphadenopathy - Respiratory Respiratory exam: Present: decreased breath sounds. Absent: accessory muscle use, rales, rhonchi, wheezes - Cardiovascular Cardiovascular exam: Present: RRR, +S1, +S2. Absent: diastolic murmur, gallop, rubs, systolic murmur - GI/Abdominal GI/Abdominal exam: Present: normal bowel sounds, soft, tenderness (Mild diffuse abdominal tenderness ), no peritoneal signs. Absent: distended - Extremities Exam Extremities exam: Present: warm, radial pulses palpable and symmetrical. Absent : calf tenderness, cyanotic, pedal edema - Skin Skin exam: Present: dry, intact Internal Medicine: Result - Labs CBC & Chem 7: 09/20/17 16:17 09/19/17 04:01 Labs: Short CBC 09/20/17 Range/Units 16:17 Hgb 7.6 L (12.9-16.9) g/dL Hct 22.7 L (37.5-50.1) % - Impressions Impressions Chest X-Ray 09/19/17 18:28 IMPRESSION: Right pleural effusion has resolved. Hazy opacity again noted throughout the lungs, worse on the left. This is stable to minimally improved. D/ / Kate Fernando MD / Kate Fernando MD Interpreting Provider: Kate Fernando MD - VTE Documentation of Mechanical Device: Intermittent pneumatic compression device Consult Discharge Plan - Plan Additional Instructions: RISK FACTORS: STOP SMOKING: If you smoke, STOP. Smoking or tobacco use significantly increases your risk of heart disease because nicotine causes the arteries to narrow or constrict. It also causes fats to stick to the artery. Your chances of having a heart attack are greatly increased if you continue to smoke. For more information, call the education line for smoking cessation 9-565-ZTTLFAG EAT A LOW FAT/CHOLESTEROL/SODIUM DIET: This diet may help reduce your chances of having a heart attack. LIFTING: Avoid lifting anything more than 10 pounds for 5-7 days Prior to straining, laughing, sneezing and/or coughing, apply manual pressure directly over insertion site. ACTIVITY: You may walk or climb stairs as tolerated You can resume sexual activity as tolerated In general, you are encouraged to engage in a minimum of 30 minutes or more of moderate intensity physical activity, such as brisk walking, daily or at least 3 -4 times weekly BATHING Do not submerge the site into water (bath tub, hot tub, swimming pool) for 1 week. This can be a source for infection into the blood stream. You may shower after 24 hours SITE CARE: After 24 hours, you may remove the dressing and leave the site open to air. Keep the site clean and dry. Clean gently and pat dry. You can expect bruising and tenderness that gradually resolve within a week or two. Return to work as instructed per your physician Resume driving as instructed per physician Keep all scheduled follow up appointments Resume medications as instructed IMPORTANT: If prescribed a Platelet Aggregation Inhibitor such as, Plavix, Brilinta or Effient: Duration of therapy is minimum one year These medications are often used in combination with Aspirin in prevention of future heart attacks Never discontinue unless consult with your Sales And Marketing Executive STROKE (CVA) Risk factors for a stroke are: Age, cigarette smoking, diabetes, excessive alcohol consumption, family history, high blood pressure, overweight, physical inactivity, prior stroke, heart attack, diagnosis of carotid artery stenosis or other artery disease. Warning signs: Sudden numbness or weakness of the face, arm or leg; especially on one side of the body, sudden confusion, trouble speaking or understanding, sudden trouble seeing in one or both eyes, sudden trouble walking, dizziness, loss of balance or coordination, sudden severe headache with no cause. Call 911 or go to the Emergency Room. CONGESTIVE HEART FAILURE: If you have been diagnosed with Congestive Heart Failure (CHF) and your symptoms return, make an appointment with your physician Weigh yourself daily. Notify your physician if you have a weight gain of two or more pounds in one day or five or more pounds in one week. If you experience any difficulty breathing, please call 911 BLEEDING: Although the risk of bleeding is minimal, it can happen. If you have any bleeding from the site, apply firm pressure above the puncture site for 10-15 minutes. If the bleeding does not stop, continue manual pressure and call 911 Contact your physician if: You develop a fever greater than 101 degrees Fahrenheit Your site becomes reddened or has any drainage You have an increase in pain or burning at the site or if a large knot forms at the site. If you experience chest pain, shortness of breath, dizziness, or extreme tiredness, stop the activity and rest. Please notify your physicians office if you experience any of these symptoms and they are not relieved by rest please call 911! [facility]errals: [facility] [Primary Care Provider] -
[2017-09-20] MEDS ORDERED: Doxycycline 100 MG in 0.9 % Sodium Chloride Mini Bag 100 ML IVPB ONE (18:54)
[2017-09-20] MEDS ORDERED: 0.9 % Sodium Chloride 250 ML ONE (19:49)
[2017-09-20] MEDS: Lactobacillus 1 EACH CAP.SPRINK PO SCH (19:52)
[2017-09-20] MEDS ORDERED: Cefepime HCl 1,000 MG in Water for inj. (sterile) 10 ML IVP SCH (20:00)
[2017-09-20] MEDS: Cefepime HCl 1,000 MG in Water for inj. (sterile) 10 ML IVP SCH (20:02)
[2017-09-20] MEDS: Ipratropium/Albuterol Neb 3 ML IH SCH ×2 (20:59→23:43)
[2017-09-21] MEDS: *HR* OxyCODONE Immed Rel 5 MG TABLET PO PRN ×3 (00:01→21:28)
[2017-09-21] MEDS ORDERED: 0.9 % Sodium Chloride 1,000 ML ONE (01:19)
[2017-09-21] MEDS ORDERED: 0.9 % Sodium Chloride 250 ML ONE (01:20)
[2017-09-21] MEDS: Ipratropium/Albuterol Neb 3 ML IH SCH ×6 (04:10→23:38)
[2017-09-21] MEDS: Folic Acid 1 MG TABLET PO SCH (07:42)
[2017-09-21] MEDS: Famotidine 20 MG TABLET PO SCH (07:42)
[2017-09-21] MEDS: Lactobacillus 1 EACH CAP.SPRINK PO SCH (07:42)
[2017-09-21] MEDS: Aspirin 81 MG TAB.CHEW PO SCH (07:43)
[2017-09-21] MEDS: Calcium Acetate 667 MG CAPSULE PO SCH ×3 (07:43→17:54)
[2017-09-21] MEDS: Isosorbide MONOnitrate (24 HR) 60 MG TAB.ER.24H PO SCH (07:43)
[2017-09-21] MEDS: Gabapentin 300 MG CAPSULE PO SCH ×2 (07:43→21:19)
[2017-09-21] MEDS: Furosemide 40 MG/4 ML VIAL IVP SCH ×2 (07:44→17:54)
[2017-09-21] MEDS: Insulin DETEMIR 100 UNIT/ML X5UNITS SQ SCH (07:53)
[2017-09-21] MEDS: Insulin LISPRO 300 UNITS/3 ML VIAL SQ SCH ×7 (07:54→21:17)
[2017-09-21 08:45] LABS: Immature Granulocytes % 0.4 % (0-4); Mean Platelet Volume 12.2 fL (9.4-12.4); Red Cell Distribution Width 15.1 % (11.5-14.5)
[2017-09-21 08:47] LABS: Eosinophils % 1.7 %; Hematocrit 27.5 % (37.5-50.1); Hemoglobin 9.3 g/dL (12.9-16.9); Immature Platelets 7.7 % (1.1-6.1); Lymphocytes # 0.6 K/mcL (0.6-4.6); Lymphocytes % 23.9 %; Mean Corpuscular HGB Conc 33.8 g/dL (31.6-35.5); Mean Corpuscular Hemoglobin 30.8 pg (28.0-33.3); Mean Corpuscular Volume 91.1 fL (83.0-100.0); Monocytes # 0.3 K/mcL (0.0-1.3); Monocytes % 10.5 %; Neutrophils # 1.5 K/mcL (1.6-8.9); Red Blood Count 3.02 M/mcL (4.19-5.50); Segmented Neutrophils % 63.5 %
[2017-09-21 08:48] LABS: Platelet Count 71 K/mcL (140-400)
[2017-09-21 08:57] LABS: Albumin 3.3 g/dL (3.5-5.0); Magnesium 1.7 mg/dL (1.6-2.6); Potassium 4.1 mEq/L (3.5-4.5)
[2017-09-21] MEDS ORDERED: Iron Sucrose Complex 200 MG in 0.9 % Sodium Chloride 100 ML IVPB ONE (09:00)
--- NOTE | 2017-09-21 09:42 | Internal Med Progress Note ---
Date of Encounter: 09/21/17 Time of Encounter: 09:40 - Assessment and plan (1) Diabetes mellitus Current Visit: Yes Status: Chronic Qualifiers: Diabetes mellitus type: type 2 Diabetes mellitus complication status: with kidney complications Diabetes mellitus complication detail: with chronic kidney disease Diabetes mellitus superintendent marine oil terminal insulin use: with fpc use Chronic kidney disease stage: on chronic dialysis Qualified Code(s): E11.22 - Type 2 diabetes mellitus with diabetic chronic kidney disease; N18.6 - End stage renal disease; Z99.2 - Dependence on renal dialysis; Z99.2 - Dependence on renal dialysis; Z99.2 - Dependence on renal dialysis; N18.6 - End stage renal disease; N18.6 - End stage renal disease; N18.6 - End stage renal disease ; Z79.4 - longterm (current) use of insulin; Z79.4 - longterm (current) use of insulin; Z79.4 - longterm (current) use of insulin; Z79.4 - tank terminal gauger ( current) use of insulin; Z99.2 - Dependence on renal dialysis (2) Anemia Current Visit: Yes Status: Acute Qualifiers: Anemia type: due to chronic kidney disease Chronic kidney disease stage: on chronic dialysis Qualified Code(s): N18.6 - End stage renal disease; D63.1 - Anemia in chronic kidney disease; D63.1 - Anemia in chronic kidney disease; Z99.2 - Dependence on renal dialysis; Z99.2 - Dependence on renal dialysis; Z99.2 - Dependence on renal dialysis; Z99.2 - Dependence on renal dialysis (3) Constipation Current Visit: Yes Status: Acute Qualifiers: Constipation type: slow transit constipation Qualified Code(s): K59.01 - Slow transit constipation (4) GERD (gastroesophageal reflux disease) Current Visit: Yes Status: Acute Qualifiers: Esophagitis presence: without esophagitis Qualified Code(s): K21.9 - Gastro -esophageal reflux disease without esophagitis (5) Pneumonia Current Visit: Yes Status: Acute Qualifiers: Pneumonia type: due to unspecified organism Laterality: bilateral Lung location: lower lobe of lung Qualified Code(s): J18.9 - Pneumonia, unspecified organism - Time Spent With Patient Hemoglobin is trending up, patient had history of severe gastritis. Patient stated that recently he had colonoscopy and EGD. Patient denies any nausea vomiting. Patient is feeling better now. Continue proton pump inhibitor, close monitoring of his H&H, continue aspirin and Plavix. If his H&H stable tomorrow morning patient can be discharged home. Continue current antibiotic. Counseling patient about deep breathing . Adjust medication for diabetes 25 - 35 minutes - Subjective Interval history: Patient denies any chest pain or shortness of breath. Patient is feeling better compared to yesterday. Patient had bowel movement of the laxative - Constitutional Vitals: Temp Pulse Resp BP Pulse Ox 98.3 F 57 14 159/84 95 09/21/17 07:23 09/21/17 07:23 09/21/17 07:23 09/21/17 07:23 09/21/17 07:23 General appearance: Present: A&O X 3, pleasant, no acute distress - Head Head exam: Present: atraumatic, normocephalic - Neck Neck exam general surgery: Present: supple, trachea midline. Absent: lymphadenopathy - Respiratory Respiratory exam: Present: decreased breath sounds (Markedly diminished breathing sounds right lung base), prolonged expiratory phase. Absent: accessory muscle use, rales, rhonchi, wheezes - GI/Abdominal GI/Abdominal exam: Present: normal bowel sounds, soft, no peritoneal signs. Absent: distended, tenderness - Extremities Exam Extremities exam: Present: warm, radial pulses palpable and symmetrical. Absent : calf tenderness, cyanotic, pedal edema - Neurological Exam Neurological exam: Present: CN II-XII intact, oriented X3, no focal deficits. Absent: pronater drift, facial droop, speech deficit Internal Medicine: Result - Labs CBC & Chem 7: 09/21/17 08:28 09/21/17 08:28 Labs: Short CBC 09/20/17 09/21/17 Range/Units 16:17 08:28 WBC 2.4 L (4.3-11.1) K/mcL Hgb 7.6 L 9.3 L D (12.9-16.9) g/dL Hct 22.7 L 27.5 L (37.5-50.1) % Plt Count 71 L (140-400) K/mcL Neutrophils # 1.5 L (1.6-8.9) K/mcL BMP 09/21/17 08:28 Sodium 134 L Potassium 4.1 Chloride 98 Carbon Dioxide 24 BUN 31 H Creatinine 5.35 H Glucose 219 H Calcium 9.0 Liver Function 09/21/17 Range/Units 08:28 Albumin 3.3 L (3.5-5.0) g/dL - VTE Documentation of Mechanical Device: Intermittent pneumatic compression device Consult Discharge Plan - Plan Additional Instructions: RISK FACTORS: STOP SMOKING: If you smoke, STOP. Smoking or tobacco use significantly increases your risk of heart disease because nicotine causes the arteries to narrow or constrict. It also causes fats to stick to the artery. Your chances of having a heart attack are greatly increased if you continue to smoke. For more information, call the education line for smoking cessation 9-813-SAKZUWD EAT A LOW FAT/CHOLESTEROL/SODIUM DIET: This diet may help reduce your chances of having a heart attack. LIFTING: Avoid lifting anything more than 10 pounds for 5-7 days Prior to straining, laughing, sneezing and/or coughing, apply manual pressure directly over insertion site. ACTIVITY: You may walk or climb stairs as tolerated You can resume sexual activity as tolerated In general, you are encouraged to engage in a minimum of 30 minutes or more of moderate intensity physical activity, such as brisk walking, daily or at least 3 -4 times weekly BATHING Do not submerge the site into water (bath tub, hot tub, swimming pool) for 1 week. This can be a source for infection into the blood stream. You may shower after 24 hours SITE CARE: After 24 hours, you may remove the dressing and leave the site open to air. Keep the site clean and dry. Clean gently and pat dry. You can expect bruising and tenderness that gradually resolve within a week or two. Return to work as instructed per your physician Resume driving as instructed per physician Keep all scheduled follow up appointments Resume medications as instructed IMPORTANT: If prescribed a Platelet Aggregation Inhibitor such as, Plavix, Brilinta or Effient: Duration of therapy is minimum one year These medications are often used in combination with Aspirin in prevention of future heart attacks Never discontinue unless consult with your Optical Mechanic STROKE (CVA) Risk factors for a stroke are: Age, cigarette smoking, diabetes, excessive alcohol consumption, family history, high blood pressure, overweight, physical inactivity, prior stroke, heart attack, diagnosis of carotid artery stenosis or other artery disease. Warning signs: Sudden numbness or weakness of the face, arm or leg; especially on one side of the body, sudden confusion, trouble speaking or understanding, sudden trouble seeing in one or both eyes, sudden trouble walking, dizziness, loss of balance or coordination, sudden severe headache with no cause. Call 911 or go to the Emergency Room. CONGESTIVE HEART FAILURE: If you have been diagnosed with Congestive Heart Failure (CHF) and your symptoms return, make an appointment with your physician Weigh yourself daily. Notify your physician if you have a weight gain of two or more pounds in one day or five or more pounds in one week. If you experience any difficulty breathing, please call 911 BLEEDING: Although the risk of bleeding is minimal, it can happen. If you have any bleeding from the site, apply firm pressure above the puncture site for 10-15 minutes. If the bleeding does not stop, continue manual pressure and call 911 Contact your physician if: You develop a fever greater than 101 degrees Fahrenheit Your site becomes reddened or has any drainage You have an increase in pain or burning at the site or if a large knot forms at the site. If you experience chest pain, shortness of breath, dizziness, or extreme tiredness, stop the activity and rest. Please notify your physicians office if you experience any of these symptoms and they are not relieved by rest please call 911! [facility]errals: [facility] [Primary Care Provider] -
[2017-09-21] MEDS ORDERED: Insulin DETEMIR 100 UNIT/ML X5UNITS SQ SCH (09:47)
[2017-09-21] MEDS: traMADol 50 MG TABLET PO SCH ×3 (09:57→21:19)
--- NOTE | 2017-09-21 10:33 | Nephrology Progress Note ---
Date of Encounter: 09/21/17 Time of Encounter: 10:15 - Assessment and Plan (1) ESRD (end stage renal disease) on dialysis Current Visit: Yes Status: Chronic S/P LHC-stent x 1. No HD today, keeping MWF schedule. Subjective Principal diagnosis: CAD, CHF Interval history: S/P LHC. Denies chest pain or nausea. Rec'd PRBC yesterday. Objective - Vital Signs Vital signs: Vital Signs Temp Pulse Resp BP Pulse Ox 09/21/17 07:23 98.3 F 57 14 159/84 95 09/21/17 04:26 97.5 F L 58 16 157/78 94 09/21/17 04:12 18 96 09/21/17 01:49 EST 97.4 F L 65 16 157/73 96 09/21/17 01:24 EST 98.4 F 09/21/17 01:20 EST 98.4 F 66 16 141/60 94 09/20/17 23:45 18 95 09/20/17 23:22 98.6 F 62 18 139/65 94 09/20/17 21:02 18 92 09/20/17 18:59 98.3 F 66 16 134/59 92 09/20/17 16:31 98.3 F 59 18 127/64 96 Intake and Output 09/21/17 09/21/17 09/21/17 00:59 07:59 15:59 Intake Total 240 / 240 Output Total 0 / 0 Balance 240 / 240 Intake: Oral 240 / 240 Blood Product Rbcs Leuko Poor As-1 Unit [id number] Output: Urine 0 / 0 Other: Meal Breakfast Percent of Meal Consumed 100% Weight Blood Glucose* Patient Weight 09/21/17 22:59 Weight 97.341 kg - General Appearance General appearance: Present: well-developed, well-nourished, appears started age EENT: Present: mucous membranes moist Neck: Present: no JVD Respiratory: Present: clear Cardiology: Present: no edema, regular rate, regular rhythm Dialysis Vascular Access: Arteriovenous Fistula Gastrointestinal: Present: normoactive bowel sounds, no tenderness Integumentary: Present: warm and dry Neurologic: Present: alert and oriented x3 Psychiatric: Present: mood/affect appropriate, cooperative - Lab 09/21/17 08:28 09/21/17 08:28 Most recent lab results Calcium 9.0 mg/dL (8.6-10.8) 09/21/17 08:28 Phosphorus 3.3 mg/dL (2.3-4.7) 09/19/17 04:01 Magnesium 1.7 mg/dL (1.6-2.6) 09/21/17 08:28 - VTE Documentation of Mechanical Device: Intermittent pneumatic compression device Consult Discharge Plan - Plan Additional Instructions: RISK FACTORS: STOP SMOKING: If you smoke, STOP. Smoking or tobacco use significantly increases your risk of heart disease because nicotine causes the arteries to narrow or constrict. It also causes fats to stick to the artery. Your chances of having a heart attack are greatly increased if you continue to smoke. For more information, call the education line for smoking cessation 5-526-LAKZFPS EAT A LOW FAT/CHOLESTEROL/SODIUM DIET: This diet may help reduce your chances of having a heart attack. LIFTING: Avoid lifting anything more than 10 pounds for 5-7 days Prior to straining, laughing, sneezing and/or coughing, apply manual pressure directly over insertion site. ACTIVITY: You may walk or climb stairs as tolerated You can resume sexual activity as tolerated In general, you are encouraged to engage in a minimum of 30 minutes or more of moderate intensity physical activity, such as brisk walking, daily or at least 3 -4 times weekly BATHING Do not submerge the site into water (bath tub, hot tub, swimming pool) for 1 week. This can be a source for infection into the blood stream. You may shower after 24 hours SITE CARE: After 24 hours, you may remove the dressing and leave the site open to air. Keep the site clean and dry. Clean gently and pat dry. You can expect bruising and tenderness that gradually resolve within a week or two. Return to work as instructed per your physician Resume driving as instructed per physician Keep all scheduled follow up appointments Resume medications as instructed IMPORTANT: If prescribed a Platelet Aggregation Inhibitor such as, Plavix, Brilinta or Effient: Duration of therapy is minimum one year These medications are often used in combination with Aspirin in prevention of future heart attacks Never discontinue unless consult with your Environmental Systems Coordinator STROKE (CVA) Risk factors for a stroke are: Age, cigarette smoking, diabetes, excessive alcohol consumption, family history, high blood pressure, overweight, physical inactivity, prior stroke, heart attack, diagnosis of carotid artery stenosis or other artery disease. Warning signs: Sudden numbness or weakness of the face, arm or leg; especially on one side of the body, sudden confusion, trouble speaking or understanding, sudden trouble seeing in one or both eyes, sudden trouble walking, dizziness, loss of balance or coordination, sudden severe headache with no cause. Call 911 or go to the Emergency Room. CONGESTIVE HEART FAILURE: If you have been diagnosed with Congestive Heart Failure (CHF) and your symptoms return, make an appointment with your physician Weigh yourself daily. Notify your physician if you have a weight gain of two or more pounds in one day or five or more pounds in one week. If you experience any difficulty breathing, please call 911 BLEEDING: Although the risk of bleeding is minimal, it can happen. If you have any bleeding from the site, apply firm pressure above the puncture site for 10-15 minutes. If the bleeding does not stop, continue manual pressure and call 911 Contact your physician if: You develop a fever greater than 101 degrees Fahrenheit Your site becomes reddened or has any drainage You have an increase in pain or burning at the site or if a large knot forms at the site. If you experience chest pain, shortness of breath, dizziness, or extreme tiredness, stop the activity and rest. Please notify your physicians office if you experience any of these symptoms and they are not relieved by rest please call 911! [facility]errals: [facility] [Primary Care Provider] -
[2017-09-21] MEDS: Cefepime HCl 1,000 MG in Water for inj. (sterile) 10 ML IVP SCH (21:16)
[2017-09-22] MEDS: Ipratropium/Albuterol Neb 3 ML IH SCH ×5 (03:51→20:09)
[2017-09-22] MEDS: *HR* OxyCODONE Immed Rel 5 MG TABLET PO PRN ×2 (04:33→20:35)
[2017-09-22] MEDS ORDERED: 0.9 % Sodium Chloride 250 ML IVC PRN (08:43)
--- NOTE | 2017-09-22 08:43 | Nephrology Progress Note ---
Date of Encounter: 09/22/17 Time of Encounter: 08:41 - Assessment and Plan (1) ESRD (end stage renal disease) on dialysis Current Visit: Yes Status: Chronic Patient will undergo dialysis today. He continues on Aranesp for his anemia. Unfortunately he still has some coronary lesions which were unable to be treated. (2) Anemia in CKD (chronic kidney disease) Current Visit: Yes Status: Chronic Qualifiers: Chronic kidney disease stage: on chronic dialysis Qualified Code(s): N18.6 - End stage renal disease; D63.1 - Anemia in chronic kidney disease; D63.1 - Anemia in chronic kidney disease; Z99.2 - Dependence on renal dialysis; Z99.2 - Dependence on renal dialysis; Z99.2 - Dependence on renal dialysis; Z99.2 - Dependence on renal dialysis (3) CAD (coronary artery disease), [place] coronary artery Current Visit: Yes Status: Acute Qualifiers: [place] vs. transplanted heart: [place] heart Associated angina: without angina Qualified Code(s): I25.10 - Atherosclerotic heart disease of [place] coronary artery without angina pectoris (4) Nausea and vomiting Current Visit: Yes Status: Resolved Qualifiers: Vomiting type: unspecified Vomiting Intractability: non-intractable Qualified Code(s): R11.2 - Nausea with vomiting, unspecified Subjective Principal diagnosis: CAD, CHF Interval history: Patient reports he is having less exertional dyspnea since undergoing cardiac catheterization and stent placement last week. He denies any chest pain. He is scheduled for his usual dialysis today. Objective - Vital Signs Vital signs: Vital Signs Temp Pulse Resp BP Pulse Ox 09/22/17 08:15 97.5 F L 67 18 154/63 95 09/22/17 04:14 97.6 F 64 18 146/64 95 09/22/17 03:51 19 95 09/22/17 00:16 98.2 F 62 18 136/67 94 09/21/17 23:38 16 93 09/21/17 20:12 18 95 09/21/17 18:37 97.8 F 68 18 130/58 97 09/21/17 16:15 16 95 09/21/17 15:47 97.8 F 62 18 161/77 96 09/21/17 12:06 98.4 F 61 16 141/55 97 09/21/17 10:39 16 92 Intake and Output 09/21/17 09/22/17 09/22/17 23:59 07:59 15:59 Intake Total 380 / 380 Output Total 250 / 250 450 / 450 Balance 130 / 130 -450 / -450 Intake: IV Fluids 20 / 20 Maxipime 1,000 MG In Water for 20 / 20 inj. (sterile) 10 ML @ 150 mls/ hr IVP Q24H [id number] Rx#:[id number] Oral 360 / 360 Output: Urine 250 / 250 450 / 450 Other: Meal Dinner Percent of Meal Consumed 100% Weight 97.2 kg Blood Glucose* 151 166 Patient Weight 09/22/17 23:59 Weight 97.2 kg - General Appearance Exam: Patient is alert and oriented. He is in no acute distress. Lungs clear to auscultation. Heart regular rate and rhythm with a 2/6 systolic ejection murmur. Abdomen is benign. There is no lower extremity swelling. There is a functioning AV fistula in the left upper extremity. - Lab 09/21/17 08:28 09/21/17 08:28 Most recent lab results Calcium 9.0 mg/dL (8.6-10.8) 09/21/17 08:28 Phosphorus 3.3 mg/dL (2.3-4.7) 09/19/17 04:01 Magnesium 1.7 mg/dL (1.6-2.6) 09/21/17 08:28 - VTE Documentation of Mechanical Device: Intermittent pneumatic compression device Consult Discharge Plan - Plan Additional Instructions: RISK FACTORS: STOP SMOKING: If you smoke, STOP. Smoking or tobacco use significantly increases your risk of heart disease because nicotine causes the arteries to narrow or constrict. It also causes fats to stick to the artery. Your chances of having a heart attack are greatly increased if you continue to smoke. For more information, call the education line for smoking cessation 4-993-QCBZVJM EAT A LOW FAT/CHOLESTEROL/SODIUM DIET: This diet may help reduce your chances of having a heart attack. LIFTING: Avoid lifting anything more than 10 pounds for 5-7 days Prior to straining, laughing, sneezing and/or coughing, apply manual pressure directly over insertion site. ACTIVITY: You may walk or climb stairs as tolerated You can resume sexual activity as tolerated In general, you are encouraged to engage in a minimum of 30 minutes or more of moderate intensity physical activity, such as brisk walking, daily or at least 3 -4 times weekly BATHING Do not submerge the site into water (bath tub, hot tub, swimming pool) for 1 week. This can be a source for infection into the blood stream. You may shower after 24 hours SITE CARE: After 24 hours, you may remove the dressing and leave the site open to air. Keep the site clean and dry. Clean gently and pat dry. You can expect bruising and tenderness that gradually resolve within a week or two. Return to work as instructed per your physician Resume driving as instructed per physician Keep all scheduled follow up appointments Resume medications as instructed IMPORTANT: If prescribed a Platelet Aggregation Inhibitor such as, Plavix, Brilinta or Effient: Duration of therapy is minimum one year These medications are often used in combination with Aspirin in prevention of future heart attacks Never discontinue unless consult with your Propulsion Motor And Generator Repairer STROKE (CVA) Risk factors for a stroke are: Age, cigarette smoking, diabetes, excessive alcohol consumption, family history, high blood pressure, overweight, physical inactivity, prior stroke, heart attack, diagnosis of carotid artery stenosis or other artery disease. Warning signs: Sudden numbness or weakness of the face, arm or leg; especially on one side of the body, sudden confusion, trouble speaking or understanding, sudden trouble seeing in one or both eyes, sudden trouble walking, dizziness, loss of balance or coordination, sudden severe headache with no cause. Call 911 or go to the Emergency Room. CONGESTIVE HEART FAILURE: If you have been diagnosed with Congestive Heart Failure (CHF) and your symptoms return, make an appointment with your physician Weigh yourself daily. Notify your physician if you have a weight gain of two or more pounds in one day or five or more pounds in one week. If you experience any difficulty breathing, please call 911 BLEEDING: Although the risk of bleeding is minimal, it can happen. If you have any bleeding from the site, apply firm pressure above the puncture site for 10-15 minutes. If the bleeding does not stop, continue manual pressure and call 911 Contact your physician if: You develop a fever greater than 101 degrees Fahrenheit Your site becomes reddened or has any drainage You have an increase in pain or burning at the site or if a large knot forms at the site. If you experience chest pain, shortness of breath, dizziness, or extreme tiredness, stop the activity and rest. Please notify your physicians office if you experience any of these symptoms and they are not relieved by rest please call 911! [facility]: [facility] [Primary Care Provider] -
[2017-09-22] MEDS: Furosemide 40 MG/4 ML VIAL IVP SCH ×2 (09:58→16:56)
[2017-09-22] MEDS: Insulin DETEMIR 100 UNIT/ML X5UNITS SQ SCH ×2 (09:58→20:46)
[2017-09-22] MEDS: Lactobacillus 1 EACH CAP.SPRINK PO SCH (09:59)
[2017-09-22] MEDS: Famotidine 20 MG TABLET PO SCH (09:59)
[2017-09-22] MEDS: Gabapentin 300 MG CAPSULE PO SCH ×2 (10:00→20:37)
[2017-09-22] MEDS: Calcium Acetate 667 MG CAPSULE PO SCH ×3 (10:00→17:00)
[2017-09-22] MEDS: traMADol 50 MG TABLET PO SCH ×3 (10:00→20:35)
[2017-09-22] MEDS: Folic Acid 1 MG TABLET PO SCH (10:00)
[2017-09-22] MEDS: Aspirin 81 MG TAB.CHEW PO SCH (10:01)
[2017-09-22] MEDS: Isosorbide MONOnitrate (24 HR) 60 MG TAB.ER.24H PO SCH (10:02)
[2017-09-22] MEDS: Insulin LISPRO 300 UNITS/3 ML VIAL SQ SCH ×7 (10:03→20:36)
[2017-09-22] MEDS ORDERED: 0.9 % Sodium Chloride 2,000 ML ONE (10:51)
[2017-09-22 12:17] LABS: Hematocrit 25.4 % (37.5-50.1); Hemoglobin 8.6 g/dL (12.9-16.9)
[2017-09-22 12:30] LABS: Calcium 8.8 mg/dL (8.6-10.8); Potassium 3.7 mEq/L (3.5-4.5)
[2017-09-22] MEDS ORDERED: hydrALAZINE 25 MG TABLET PO PRN (16:09)
--- NOTE | 2017-09-22 16:13 | Internal Med Progress Note ---
Date of Encounter: 09/22/17 Time of Encounter: 16:11 - Assessment and plan (1) Diabetes mellitus Current Visit: Yes Status: Chronic Qualifiers: Diabetes mellitus type: type 2 Diabetes mellitus complication status: with kidney complications Diabetes mellitus complication detail: with chronic kidney disease Diabetes mellitus exterminator termite insulin use: with penitentiary use Chronic kidney disease stage: on chronic dialysis Qualified Code(s): E11.22 - Type 2 diabetes mellitus with diabetic chronic kidney disease; N18.6 - End stage renal disease; Z99.2 - Dependence on renal dialysis; Z99.2 - Dependence on renal dialysis; Z99.2 - Dependence on renal dialysis; N18.6 - End stage renal disease; N18.6 - End stage renal disease; N18.6 - End stage renal disease ; Z79.4 - shelter (current) use of insulin; Z79.4 - shelter (current) use of insulin; Z79.4 - shelter (current) use of insulin; Z79.4 - terminal operations supervisor ( current) use of insulin; Z99.2 - Dependence on renal dialysis (2) Anemia Current Visit: Yes Status: Acute Qualifiers: Anemia type: due to chronic kidney disease Chronic kidney disease stage: on chronic dialysis Qualified Code(s): N18.6 - End stage renal disease; D63.1 - Anemia in chronic kidney disease; D63.1 - Anemia in chronic kidney disease; Z99.2 - Dependence on renal dialysis; Z99.2 - Dependence on renal dialysis; Z99.2 - Dependence on renal dialysis; Z99.2 - Dependence on renal dialysis (3) Constipation Current Visit: Yes Status: Acute Qualifiers: Constipation type: slow transit constipation Qualified Code(s): K59.01 - Slow transit constipation (4) GERD (gastroesophageal reflux disease) Current Visit: Yes Status: Acute Qualifiers: Esophagitis presence: without esophagitis Qualified Code(s): K21.9 - Gastro -esophageal reflux disease without esophagitis (5) Pneumonia Current Visit: Yes Status: Acute Qualifiers: Pneumonia type: due to unspecified organism Laterality: bilateral Lung location: lower lobe of lung Qualified Code(s): J18.9 - Pneumonia, unspecified organism (6) Constipation Current Visit: Yes Status: Acute Qualifiers: Constipation type: slow transit constipation Qualified Code(s): K59.01 - Slow transit constipation - Time Spent With Patient Continue Protonix twice a day for gastritis, with his CV of constipation with add lactulose 20 g PRN x 4 doses. If no bowel movement, rectal enema, discussed with dampener operator about patient hemoglobin and condition. He stated this most likely secondary to chronic kidney disease. Recommended to monitor. If any evidence of GI bleeding will report to dampener operator. Awaiting stool for occult blood test. Add hydralazine as needed for blood pressure more than 150. Continue beta sam and Imdur. Discussed with clinical pharmacy is about diabetic medication and adjustment of insulin on days of dialysis and days off dialysis. Reevaluate patient. If better possible discharge in next 24 hour 25 - 35 minutes - Subjective Interval history: Patient complaining of nausea, he is feeling sick to his stomach. Patient stated that he has not had any bowel movement for last 6 days. He denies any vomiting. no CP or sob . - Constitutional Vitals: Temp Pulse Resp BP Pulse Ox 89.2 F L 68 17 175/60 97 09/22/17 15:59 09/22/17 15:59 09/22/17 15:59 09/22/17 15:59 09/22/17 15:59 General appearance: Present: A&O X 3, pleasant, no acute distress - Neck Neck exam general surgery: Present: supple, trachea midline. Absent: lymphadenopathy - Respiratory Respiratory exam: Present: decreased breath sounds, rales (bilateral lung base) . Absent: accessory muscle use, rhonchi, wheezes - GI/Abdominal GI/Abdominal exam: Present: normal bowel sounds, soft, tenderness (mild diffuse abdominal tenderness), no peritoneal signs. Absent: distended - Extremities Exam Extremities exam: Present: warm, radial pulses palpable and symmetrical. Absent : calf tenderness, cyanotic, pedal edema - Neurological Exam Neurological exam: Present: CN II-XII intact, oriented X3, no focal deficits. Absent: pronater drift, facial droop, speech deficit Internal Medicine: Result - Labs CBC & Chem 7: 09/22/17 12:05 09/22/17 12:05 Labs: Short CBC 09/22/17 Range/Units 12:05 Hgb 8.6 L (12.9-16.9) g/dL Hct 25.4 L (37.5-50.1) % BMP 09/22/17 12:05 Sodium 137 Potassium 3.7 Chloride 97 L Carbon Dioxide 29 BUN 19 D Creatinine 3.07 H Glucose 126 H Calcium 8.8 - Impressions Impressions Chest X-Ray 09/22/17 06:00 IMPRESSION: Small right pleural effusion with airspace opacity in the retrocardiac region seen only on the lateral view. Pneumonia is not excluded. Otherwise stable cardiomegaly and interstitial edema. D/ / 09/22/2017 14:20:07 Juani Stephenson MD / [employer]arter Interpreting Provider: Juani Stephenson MD - VTE Documentation of Mechanical Device: Intermittent pneumatic compression device Consult Discharge Plan - Plan Additional Instructions: RISK FACTORS: STOP SMOKING: If you smoke, STOP. Smoking or tobacco use significantly increases your risk of heart disease because nicotine causes the arteries to narrow or constrict. It also causes fats to stick to the artery. Your chances of having a heart attack are greatly increased if you continue to smoke. For more information, call the education line for smoking cessation 0-324-UGHXIBC EAT A LOW FAT/CHOLESTEROL/SODIUM DIET: This diet may help reduce your chances of having a heart attack. LIFTING: Avoid lifting anything more than 10 pounds for 5-7 days Prior to straining, laughing, sneezing and/or coughing, apply manual pressure directly over insertion site. ACTIVITY: You may walk or climb stairs as tolerated You can resume sexual activity as tolerated In general, you are encouraged to engage in a minimum of 30 minutes or more of moderate intensity physical activity, such as brisk walking, daily or at least 3 -4 times weekly BATHING Do not submerge the site into water (bath tub, hot tub, swimming pool) for 1 week. This can be a source for infection into the blood stream. You may shower after 24 hours SITE CARE: After 24 hours, you may remove the dressing and leave the site open to air. Keep the site clean and dry. Clean gently and pat dry. You can expect bruising and tenderness that gradually resolve within a week or two. Return to work as instructed per your physician Resume driving as instructed per physician Keep all scheduled follow up appointments Resume medications as instructed IMPORTANT: If prescribed a Platelet Aggregation Inhibitor such as, Plavix, Brilinta or Effient: Duration of therapy is minimum one year These medications are often used in combination with Aspirin in prevention of future heart attacks Never discontinue unless consult with your Land Clearer STROKE (CVA) Risk factors for a stroke are: Age, cigarette smoking, diabetes, excessive alcohol consumption, family history, high blood pressure, overweight, physical inactivity, prior stroke, heart attack, diagnosis of carotid artery stenosis or other artery disease. Warning signs: Sudden numbness or weakness of the face, arm or leg; especially on one side of the body, sudden confusion, trouble speaking or understanding, sudden trouble seeing in one or both eyes, sudden trouble walking, dizziness, loss of balance or coordination, sudden severe headache with no cause. Call 911 or go to the Emergency Room. CONGESTIVE HEART FAILURE: If you have been diagnosed with Congestive Heart Failure (CHF) and your symptoms return, make an appointment with your physician Weigh yourself daily. Notify your physician if you have a weight gain of two or more pounds in one day or five or more pounds in one week. If you experience any difficulty breathing, please call 911 BLEEDING: Although the risk of bleeding is minimal, it can happen. If you have any bleeding from the site, apply firm pressure above the puncture site for 10-15 minutes. If the bleeding does not stop, continue manual pressure and call 911 Contact your physician if: You develop a fever greater than 101 degrees Fahrenheit Your site becomes reddened or has any drainage You have an increase in pain or burning at the site or if a large knot forms at the site. If you experience chest pain, shortness of breath, dizziness, or extreme tiredness, stop the activity and rest. Please notify your physicians office if you experience any of these symptoms and they are not relieved by rest please call 911! [facility]errals: [facility] [Primary Care Provider] -
[2017-09-22] MEDS: Lactulose Oral Soln 20 GM/30 ML UDC PO SCH ×4 (17:46→22:37)
[2017-09-22] MEDS: Cefepime HCl 1,000 MG in Water for inj. (sterile) 10 ML IVP SCH (20:36)
[2017-09-23] MEDS: Ipratropium/Albuterol Neb 3 ML IH SCH ×7 (00:25→23:55)
[2017-09-23] MEDS: *HR* OxyCODONE Immed Rel 5 MG TABLET PO PRN (06:04)
[2017-09-23] MEDS: Insulin LISPRO 300 UNITS/3 ML VIAL SQ SCH ×7 (09:38→20:59)
[2017-09-23] MEDS: Lactobacillus 1 EACH CAP.SPRINK PO SCH (09:40)
[2017-09-23] MEDS: Darbepoetin 100 MCG/0.5 ML SYRINGE SQ SCH (09:40)
[2017-09-23] MEDS: Gabapentin 300 MG CAPSULE PO SCH ×2 (09:41→20:59)
[2017-09-23] MEDS: traMADol 50 MG TABLET PO SCH ×3 (09:41→20:59)
[2017-09-23] MEDS: Calcium Acetate 667 MG CAPSULE PO SCH ×3 (09:41→17:41)
[2017-09-23] MEDS: Folic Acid 1 MG TABLET PO SCH (09:41)
[2017-09-23] MEDS: Isosorbide MONOnitrate (24 HR) 60 MG TAB.ER.24H PO SCH (09:42)
[2017-09-23] MEDS: Aspirin 81 MG TAB.CHEW PO SCH (09:42)
[2017-09-23] MEDS: Furosemide 40 MG/4 ML VIAL IVP SCH ×2 (09:42→17:41)
[2017-09-23] MEDS: Insulin DETEMIR 100 UNIT/ML X5UNITS SQ SCH ×2 (10:02→20:58)
--- NOTE | 2017-09-23 17:26 | Internal Med Progress Note ---
Date of Encounter: 09/23/17 Time of Encounter: 17:00 - Assessment and plan (1) Pneumonia Current Visit: Yes Status: Acute Assessment and plan: Now improved Continue DuoNeb breathing treatment, IV cefepime Cultures - no growth Qualifiers: Pneumonia type: due to unspecified organism Laterality: bilateral Lung location: lower lobe of lung Qualified Code(s): J18.9 - Pneumonia, unspecified organism (2) Congestive heart failure Current Visit: No Status: Acute Assessment and plan: Systolic dysfunction CHF, LVEF 35% - stable Continue Lopressor, Lasix Fluid restriction, strict I's and O's, daily weight Qualifiers: Congestive heart failure type: diastolic Congestive heart failure chronicity: unspecified congestive heart failure chronicity Qualified Code(s) : I50.30 - Unspecified diastolic (congestive) heart failure (3) CAD (coronary artery disease), [place] coronary artery Current Visit: Yes Status: Acute Assessment and plan: Status post LHC - ABBI with PTCA to left main Continue Aspirin, Plavix, Lipitor Qualifiers: [place] vs. transplanted heart: [place] heart Associated angina: without angina Qualified Code(s): I25.10 - Atherosclerotic heart disease of [place] coronary artery without angina pectoris (4) ESRD (end stage renal disease) on dialysis Current Visit: Yes Status: Chronic Assessment and plan: Nephrology consulted for hemodialysis needs. Receiving HD per schedule - Friday (5) Diabetes mellitus Current Visit: Yes Status: Chronic Assessment and plan: Type 2 diabetes mellitus, insulin-dependent, hyperglycemia Sliding-scale insulin, glucose checks Qualifiers: Diabetes mellitus type: type 2 Diabetes mellitus complication status: with kidney complications Diabetes mellitus complication detail: with chronic kidney disease Diabetes mellitus long term care administrator insulin use: with penitentiary use Chronic kidney disease stage: on chronic dialysis Qualified Code(s): E11.22 - Type 2 diabetes mellitus with diabetic chronic kidney disease; N18.6 - End stage renal disease; Z99.2 - Dependence on renal dialysis; Z99.2 - Dependence on renal dialysis; Z99.2 - Dependence on renal dialysis; N18.6 - End stage renal disease; N18.6 - End stage renal disease; N18.6 - End stage renal disease ; Z79.4 - medical terminologist (current) use of insulin; Z79.4 - nursing home (current) use of insulin; Z79.4 - medical terminologist (current) use of insulin; Z79.4 - nursing home ( current) use of insulin; Z99.2 - Dependence on renal dialysis (6) DVT prophylaxis Current Visit: Yes Status: Acute Assessment and plan: Continue SCDs, ambulate - Time Spent With Patient 25 - 35 minutes - Subjective Interval history: Examined this evening. Patient is awake and alert. Not in any distress. Denies chest pain or shortness of breath. Tolerating oral diet well. No fever. Hemodynamically stable. No other acute events or complaints. Anticipate discharge tomorrow. - Constitutional Vitals: Temp Pulse Resp BP Pulse Ox 98.1 F 64 17 123/53 96 09/23/17 15:08 09/23/17 15:08 09/23/17 15:08 09/23/17 15:08 09/23/17 15:08 General appearance: Present: cooperative, A&O X 3, pleasant, no acute distress, answers questions appropriately - Head Head exam: Present: atraumatic - Eye Eye exam: Present: EOMI - ENT ENT exam: Present: mucous membranes moist - Respiratory Respiratory exam: Present: CTAB. Absent: rales, rhonchi, wheezes, tachypnea - Cardiovascular Cardiovascular exam: Present: RRR, +S1, +S2 - GI/Abdominal GI/Abdominal exam: Present: soft. Absent: distended, firm, guarding, tenderness - Extremities Exam Extremities exam: Present: radial pulses palpable and symmetrical. Absent: calf tenderness, cyanotic, pedal edema - Neurological Exam Neurological exam: Present: alert, oriented X3, no focal deficits. Absent: facial droop, speech deficit Internal Medicine: Result - Labs CBC & Chem 7: 09/22/17 12:05 09/22/17 12:05 - VTE Documentation of Mechanical Device: Intermittent pneumatic compression device Consult Discharge Plan - Plan Additional Instructions: RISK FACTORS: STOP SMOKING: If you smoke, STOP. Smoking or tobacco use significantly increases your risk of heart disease because nicotine causes the arteries to narrow or constrict. It also causes fats to stick to the artery. Your chances of having a heart attack are greatly increased if you continue to smoke. For more information, call the education line for smoking cessation 6-197-SPEMGUX EAT A LOW FAT/CHOLESTEROL/SODIUM DIET: This diet may help reduce your chances of having a heart attack. LIFTING: Avoid lifting anything more than 10 pounds for 5-7 days Prior to straining, laughing, sneezing and/or coughing, apply manual pressure directly over insertion site. ACTIVITY: You may walk or climb stairs as tolerated You can resume sexual activity as tolerated In general, you are encouraged to engage in a minimum of 30 minutes or more of moderate intensity physical activity, such as brisk walking, daily or at least 3 -4 times weekly BATHING Do not submerge the site into water (bath tub, hot tub, swimming pool) for 1 week. This can be a source for infection into the blood stream. You may shower after 24 hours SITE CARE: After 24 hours, you may remove the dressing and leave the site open to air. Keep the site clean and dry. Clean gently and pat dry. You can expect bruising and tenderness that gradually resolve within a week or two. Return to work as instructed per your physician Resume driving as instructed per physician Keep all scheduled follow up appointments Resume medications as instructed IMPORTANT: If prescribed a Platelet Aggregation Inhibitor such as, Plavix, Brilinta or Effient: Duration of therapy is minimum one year These medications are often used in combination with Aspirin in prevention of future heart attacks Never discontinue unless consult with your Side Hemmer STROKE (CVA) Risk factors for a stroke are: Age, cigarette smoking, diabetes, excessive alcohol consumption, family history, high blood pressure, overweight, physical inactivity, prior stroke, heart attack, diagnosis of carotid artery stenosis or other artery disease. Warning signs: Sudden numbness or weakness of the face, arm or leg; especially on one side of the body, sudden confusion, trouble speaking or understanding, sudden trouble seeing in one or both eyes, sudden trouble walking, dizziness, loss of balance or coordination, sudden severe headache with no cause. Call 911 or go to the Emergency Room. CONGESTIVE HEART FAILURE: If you have been diagnosed with Congestive Heart Failure (CHF) and your symptoms return, make an appointment with your physician Weigh yourself daily. Notify your physician if you have a weight gain of two or more pounds in one day or five or more pounds in one week. If you experience any difficulty breathing, please call 911 BLEEDING: Although the risk of bleeding is minimal, it can happen. If you have any bleeding from the site, apply firm pressure above the puncture site for 10-15 minutes. If the bleeding does not stop, continue manual pressure and call 911 Contact your physician if: You develop a fever greater than 101 degrees Fahrenheit Your site becomes reddened or has any drainage You have an increase in pain or burning at the site or if a large knot forms at the site. If you experience chest pain, shortness of breath, dizziness, or extreme tiredness, stop the activity and rest. Please notify your physicians office if you experience any of these symptoms and they are not relieved by rest please call 911! [facility]errals: [facility] [Primary Care Provider] -
[2017-09-23] MEDS: Cefepime HCl 1,000 MG in Water for inj. (sterile) 10 ML IVP SCH (20:58)
[2017-09-24] MEDS: *HR* OxyCODONE Immed Rel 5 MG TABLET PO PRN ×3 (00:39→16:50)
[2017-09-24] MEDS: Ipratropium/Albuterol Neb 3 ML IH SCH ×2 (03:31→08:09)
[2017-09-24 03:54] LABS: Eosinophils % 1.8 %; Hemoglobin 8.2 g/dL (12.9-16.9); Mean Platelet Volume 12.1 fL (9.4-12.4); Red Cell Distribution Width 14.6 % (11.5-14.5)
[2017-09-24 03:56] LABS: Eosinophils # 0.1 K/mcL (0.0-0.6); Hematocrit 24.9 % (37.5-50.1); Immature Granulocytes % 0.7 % (0-4); Immature Platelets 8.4 % (1.1-6.1); Lymphocytes # 0.5 K/mcL (0.6-4.6); Lymphocytes % 19.1 %; Mean Corpuscular HGB Conc 32.9 g/dL (31.6-35.5); Mean Corpuscular Hemoglobin 30.9 pg (28.0-33.3); Monocytes # 0.4 K/mcL (0.0-1.3); Monocytes % 14.7 %; Neutrophils # 1.8 K/mcL (1.6-8.9); Red Blood Count 2.65 M/mcL (4.19-5.50); Segmented Neutrophils % 63.7 %
[2017-09-24 04:08] LABS: Calcium 8.9 mg/dL (8.6-10.8); Potassium 4.6 mEq/L (3.5-4.5)
[2017-09-24 04:15] LABS: Platelet Count 74 K/mcL (140-400)
[2017-09-24] MEDS: Calcium Acetate 667 MG CAPSULE PO SCH ×3 (08:00→16:49)
[2017-09-24] MEDS: Lactobacillus 1 EACH CAP.SPRINK PO SCH (08:01)
[2017-09-24] MEDS: Aspirin 81 MG TAB.CHEW PO SCH (08:01)
[2017-09-24] MEDS: traMADol 50 MG TABLET PO SCH ×3 (08:02→20:57)
[2017-09-24] MEDS: Isosorbide MONOnitrate (24 HR) 60 MG TAB.ER.24H PO SCH (08:02)
[2017-09-24] MEDS: Gabapentin 300 MG CAPSULE PO SCH ×2 (08:02→20:57)
[2017-09-24] MEDS: Folic Acid 1 MG TABLET PO SCH (08:03)
[2017-09-24] MEDS: Famotidine 20 MG TABLET PO SCH (08:03)
[2017-09-24] MEDS: Insulin LISPRO 300 UNITS/3 ML VIAL SQ SCH ×7 (08:08→20:56)
[2017-09-24] MEDS ORDERED: 0.9 % Sodium Chloride 250 ML IVC PRN (08:13)
--- NOTE | 2017-09-24 08:13 | Nephrology Progress Note ---
Date of Encounter: 09/24/17 Time of Encounter: 08:11 - Assessment and Plan (1) ESRD (end stage renal disease) on dialysis Current Visit: Yes Status: Chronic Patient will undergo routine dialysis today. 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 This is in the setting of pancytopenia. My recommendation is that the patient have another hematology oncology evaluation and that he would likely benefit from a bone marrow biopsy. I did discuss this with the patient and he said he would be willing to do this. (2) Anemia in CKD (chronic kidney disease) Current Visit: Yes Status: Chronic Qualifiers: Chronic kidney disease stage: on chronic dialysis Qualified Code(s): N18.6 - End stage renal disease; D63.1 - Anemia in chronic kidney disease; D63.1 - Anemia in chronic kidney disease; Z99.2 - Dependence on renal dialysis; Z99.2 - Dependence on renal dialysis; Z99.2 - Dependence on renal dialysis; Z99.2 - Dependence on renal dialysis (3) CAD (coronary artery disease), [place] coronary artery Current Visit: Yes Status: Acute Qualifiers: [place] vs. transplanted heart: [place] heart Associated angina: without angina Qualified Code(s): I25.10 - Atherosclerotic heart disease of [place] coronary artery without angina pectoris (4) Nausea and vomiting Current Visit: Yes Status: Resolved Qualifiers: Vomiting type: unspecified Vomiting Intractability: non-intractable Qualified Code(s): R11.2 - Nausea with vomiting, unspecified Subjective Principal diagnosis: CAD, CHF Interval history: The patient voices no new complaints. His serum hemoglobin continues to slowly decrease. He is going from 9.3-8.6-8.2. He also was leukopenic and thrombocytopenic. He previously been seen by hematology oncology back in May. Patient reports she had a bone marrow biopsy several years ago although he does not remember exactly when or where or what the findings were. Objective - Vital Signs Vital signs: Vital Signs Temp Pulse Resp BP Pulse Ox 09/24/17 07:07 97.6 F 64 18 134/66 96 09/24/17 03:31 16 98 09/24/17 03:24 97.9 F 65 16 143/70 92 09/23/17 23:57 18 95 09/23/17 22:41 98.3 F 67 20 131/62 93 09/23/17 20:46 97.8 F 64 16 130/53 100 09/23/17 20:34 17 97 09/23/17 15:08 98.1 F 64 17 123/53 96 09/23/17 11:28 98.1 F 69 17 136/62 100 09/23/17 11:22 16 95 Intake and Output 09/23/17 09/24/17 09/24/17 23:59 07:59 15:59 Intake Total 1180 / 1180 Output Total 200 / 200 325 / 325 Balance 980 / 980 -325 / -325 Intake: Oral 1180 / 1180 Output: Urine 200 / 200 325 / 325 Other: Meal Dinner Percent of Meal Consumed 100% Weight 97.84 kg Blood Glucose* 212 162 Patient Weight 09/24/17 23:59 Weight 97.84 kg - General Appearance Exam: Patient is alert and oriented. He is in no acute distress. Lungs essentially clear to auscultation. Heart regular rate and rhythm. Abdomen is benign. There is no peripheral edema. There is a functioning AV fistula in the left upper extremity. - Lab 09/24/17 03:22 09/24/17 03:22 Most recent lab results Calcium 8.9 mg/dL (8.6-10.8) 09/24/17 03:22 Phosphorus 3.3 mg/dL (2.3-4.7) 09/19/17 04:01 Magnesium 1.7 mg/dL (1.6-2.6) 09/21/17 08:28 - VTE Documentation of Mechanical Device: Intermittent pneumatic compression device Consult Discharge Plan - Plan Additional Instructions: RISK FACTORS: STOP SMOKING: If you smoke, STOP. Smoking or tobacco use significantly increases your risk of heart disease because nicotine causes the arteries to narrow or constrict. It also causes fats to stick to the artery. Your chances of having a heart attack are greatly increased if you continue to smoke. For more information, call the education line for smoking cessation 9-185-NGLRGDX EAT A LOW FAT/CHOLESTEROL/SODIUM DIET: This diet may help reduce your chances of having a heart attack. LIFTING: Avoid lifting anything more than 10 pounds for 5-7 days Prior to straining, laughing, sneezing and/or coughing, apply manual pressure directly over insertion site. ACTIVITY: You may walk or climb stairs as tolerated You can resume sexual activity as tolerated In general, you are encouraged to engage in a minimum of 30 minutes or more of moderate intensity physical activity, such as brisk walking, daily or at least 3 -4 times weekly BATHING Do not submerge the site into water (bath tub, hot tub, swimming pool) for 1 week. This can be a source for infection into the blood stream. You may shower after 24 hours SITE CARE: After 24 hours, you may remove the dressing and leave the site open to air. Keep the site clean and dry. Clean gently and pat dry. You can expect bruising and tenderness that gradually resolve within a week or two. Return to work as instructed per your physician Resume driving as instructed per physician Keep all scheduled follow up appointments Resume medications as instructed IMPORTANT: If prescribed a Platelet Aggregation Inhibitor such as, Plavix, Brilinta or Effient: Duration of therapy is minimum one year These medications are often used in combination with Aspirin in prevention of future heart attacks Never discontinue unless consult with your Furnace Caretaker STROKE (CVA) Risk factors for a stroke are: Age, cigarette smoking, diabetes, excessive alcohol consumption, family history, high blood pressure, overweight, physical inactivity, prior stroke, heart attack, diagnosis of carotid artery stenosis or other artery disease. Warning signs: Sudden numbness or weakness of the face, arm or leg; especially on one side of the body, sudden confusion, trouble speaking or understanding, sudden trouble seeing in one or both eyes, sudden trouble walking, dizziness, loss of balance or coordination, sudden severe headache with no cause. Call 911 or go to the Emergency Room. CONGESTIVE HEART FAILURE: If you have been diagnosed with Congestive Heart Failure (CHF) and your symptoms return, make an appointment with your physician Weigh yourself daily. Notify your physician if you have a weight gain of two or more pounds in one day or five or more pounds in one week. If you experience any difficulty breathing, please call 911 BLEEDING: Although the risk of bleeding is minimal, it can happen. If you have any bleeding from the site, apply firm pressure above the puncture site for 10-15 minutes. If the bleeding does not stop, continue manual pressure and call 911 Contact your physician if: You develop a fever greater than 101 degrees Fahrenheit Your site becomes reddened or has any drainage You have an increase in pain or burning at the site or if a large knot forms at the site. If you experience chest pain, shortness of breath, dizziness, or extreme tiredness, stop the activity and rest. Please notify your physicians office if you experience any of these symptoms and they are not relieved by rest please call 911! [facility]errals: [facility] [Primary Care Provider] -
[2017-09-24] MEDS ORDERED: Ipratropium/Albuterol Neb 3 ML IH PRN (09:13)
[2017-09-24] MEDS: Insulin DETEMIR 100 UNIT/ML X5UNITS SQ SCH ×2 (09:29→22:13)
[2017-09-24] MEDS ORDERED: 0.9 % Sodium Chloride 2,000 ML ONE (11:18)
[2017-09-24] MEDS: Furosemide 40 MG/4 ML VIAL IVP SCH ×2 (11:57→16:48)
--- NOTE | 2017-09-24 15:24 | Internal Med Progress Note ---
Date of Encounter: 09/24/17 Time of Encounter: 10:40 - Assessment and plan (1) Pneumonia Current Visit: Yes Status: Acute Assessment and plan: Now improved Continue DuoNeb breathing treatment, IV Cefepime Chest x-ray - airspace opacity seen on lateral view, small right pleural effusion Cultures - no growth Qualifiers: Pneumonia type: due to unspecified organism Laterality: bilateral Lung location: lower lobe of lung Qualified Code(s): J18.9 - Pneumonia, unspecified organism (2) Congestive heart failure Current Visit: No Status: Acute Assessment and plan: Systolic dysfunction CHF, LVEF 35% - stable - not in exacerbation Continue Lopressor, Lasix Fluid restriction, strict I's and O's, daily weight Qualifiers: Congestive heart failure type: diastolic Congestive heart failure chronicity: unspecified congestive heart failure chronicity Qualified Code(s) : I50.30 - Unspecified diastolic (congestive) heart failure (3) CAD (coronary artery disease), [place] coronary artery Current Visit: Yes Status: Acute Assessment and plan: Status post LHC - ABBI with PTCA to left main Continue Aspirin, Plavix, Lipitor Qualifiers: [place] vs. transplanted heart: [place] heart Associated angina: without angina Qualified Code(s): I25.10 - Atherosclerotic heart disease of [place] coronary artery without angina pectoris (4) ESRD (end stage renal disease) on dialysis Current Visit: Yes Status: Chronic Assessment and plan: Nephrology consulted for hemodialysis needs Receiving HD per schedule - Friday (5) Diabetes mellitus Current Visit: Yes Status: Chronic Assessment and plan: Type 2 diabetes mellitus, insulin-dependent, hyperglycemia Sliding-scale insulin, glucose checks Qualifiers: Diabetes mellitus type: type 2 Diabetes mellitus complication status: with kidney complications Diabetes mellitus complication detail: with chronic kidney disease Diabetes mellitus termite exterminator insulin use: with jail use Chronic kidney disease stage: on chronic dialysis Qualified Code(s): E11.22 - Type 2 diabetes mellitus with diabetic chronic kidney disease; N18.6 - End stage renal disease; Z99.2 - Dependence on renal dialysis; Z99.2 - Dependence on renal dialysis; Z99.2 - Dependence on renal dialysis; N18.6 - End stage renal disease; N18.6 - End stage renal disease; N18.6 - End stage renal disease ; Z79.4 - retirement (current) use of insulin; Z79.4 - retirement (current) use of insulin; Z79.4 - manager intermediate (current) use of insulin; Z79.4 - manager intermediate ( current) use of insulin; Z99.2 - Dependence on renal dialysis (6) DVT prophylaxis Current Visit: Yes Status: Acute Assessment and plan: Continue SCDs, ambulate - Time Spent With Patient 25 - 35 minutes - Subjective Interval history: Examined this evening. Patient is awake and alert. Not in any distress. Denies chest pain or shortness of breath. Tolerating oral diet well. No fever. Hemodynamically stable. No other acute events or complaints. Anticipate discharge in a.m. Hemodialysis today. - Constitutional Vitals: Temp Pulse Resp BP Pulse Ox 97 F L 64 18 127/63 96 09/24/17 10:55 09/24/17 07:07 09/24/17 10:55 09/24/17 13:25 09/24/17 07:07 General appearance: Present: cooperative, A&O X 3, pleasant, no acute distress, answers questions appropriately - Head Head exam: Present: atraumatic - Eye Eye exam: Present: EOMI - ENT ENT exam: Present: mucous membranes moist - Respiratory Respiratory exam: Present: CTAB. Absent: rales, rhonchi, wheezes, tachypnea - Cardiovascular Cardiovascular exam: Present: RRR, +S1, +S2 - GI/Abdominal GI/Abdominal exam: Present: soft. Absent: distended, firm, guarding, tenderness - Extremities Exam Extremities exam: Present: radial pulses palpable and symmetrical. Absent: calf tenderness, cyanotic, pedal edema - Neurological Exam Neurological exam: Present: alert, oriented X3, no focal deficits. Absent: facial droop, speech deficit Internal Medicine: Result - Labs CBC & Chem 7: 09/24/17 03:22 09/24/17 03:22 Labs: Short CBC 09/24/17 Range/Units 03:22 WBC 2.8 L (4.3-11.1) K/mcL Hgb 8.2 L (12.9-16.9) g/dL Hct 24.9 L (37.5-50.1) % Plt Count 74 L (140-400) K/mcL Neutrophils # 1.8 (1.6-8.9) K/mcL BMP 09/24/17 03:22 Sodium 135 L Potassium 4.6 H Chloride 97 L Carbon Dioxide 27 BUN 32 H D Creatinine 5.02 H D Glucose 163 H Calcium 8.9 - VTE Documentation of Mechanical Device: Intermittent pneumatic compression device Consult Discharge Plan - Plan Additional Instructions: RISK FACTORS: STOP SMOKING: If you smoke, STOP. Smoking or tobacco use significantly increases your risk of heart disease because nicotine causes the arteries to narrow or constrict. It also causes fats to stick to the artery. Your chances of having a heart attack are greatly increased if you continue to smoke. For more information, call the education line for smoking cessation 5-088-TEKHBQY EAT A LOW FAT/CHOLESTEROL/SODIUM DIET: This diet may help reduce your chances of having a heart attack. LIFTING: Avoid lifting anything more than 10 pounds for 5-7 days Prior to straining, laughing, sneezing and/or coughing, apply manual pressure directly over insertion site. ACTIVITY: You may walk or climb stairs as tolerated You can resume sexual activity as tolerated In general, you are encouraged to engage in a minimum of 30 minutes or more of moderate intensity physical activity, such as brisk walking, daily or at least 3 -4 times weekly BATHING Do not submerge the site into water (bath tub, hot tub, swimming pool) for 1 week. This can be a source for infection into the blood stream. You may shower after 24 hours SITE CARE: After 24 hours, you may remove the dressing and leave the site open to air. Keep the site clean and dry. Clean gently and pat dry. You can expect bruising and tenderness that gradually resolve within a week or two. Return to work as instructed per your physician Resume driving as instructed per physician Keep all scheduled follow up appointments Resume medications as instructed IMPORTANT: If prescribed a Platelet Aggregation Inhibitor such as, Plavix, Brilinta or Effient: Duration of therapy is minimum one year These medications are often used in combination with Aspirin in prevention of future heart attacks Never discontinue unless consult with your Clarity Specialists STROKE (CVA) Risk factors for a stroke are: Age, cigarette smoking, diabetes, excessive alcohol consumption, family history, high blood pressure, overweight, physical inactivity, prior stroke, heart attack, diagnosis of carotid artery stenosis or other artery disease. Warning signs: Sudden numbness or weakness of the face, arm or leg; especially on one side of the body, sudden confusion, trouble speaking or understanding, sudden trouble seeing in one or both eyes, sudden trouble walking, dizziness, loss of balance or coordination, sudden severe headache with no cause. Call 911 or go to the Emergency Room. CONGESTIVE HEART FAILURE: If you have been diagnosed with Congestive Heart Failure (CHF) and your symptoms return, make an appointment with your physician Weigh yourself daily. Notify your physician if you have a weight gain of two or more pounds in one day or five or more pounds in one week. If you experience any difficulty breathing, please call 911 BLEEDING: Although the risk of bleeding is minimal, it can happen. If you have any bleeding from the site, apply firm pressure above the puncture site for 10-15 minutes. If the bleeding does not stop, continue manual pressure and call 911 Contact your physician if: You develop a fever greater than 101 degrees Fahrenheit Your site becomes reddened or has any drainage You have an increase in pain or burning at the site or if a large knot forms at the site. If you experience chest pain, shortness of breath, dizziness, or extreme tiredness, stop the activity and rest. Please notify your physicians office if you experience any of these symptoms and they are not relieved by rest please call 911! [facility]errals: [facility] [Primary Care Provider] -
--- NOTE | 2017-09-24 16:22 | Oncology Inp Consult Note ---
Date of Encounter: 09/24/17 Time of Encounter: 16:17 Assessment and Plan (1) Pancytopenia Status: Acute Assessment and plan: - Etiology remains unclear. Mr. Velarde was evaluated by hematology as inpatient on May 26, 2010, a bone marrow biopsy was considered during inpatient stay in view of the persistent/worsening cytopenias. Peripheric blood smear reviewed: expected thrombocytopenia, with normocytic, hypocromic red blood cells, no schistocytes, no blasts, but a few myelocytes seen. In view of the chronicity , negative previous work up, and lack of a clear explanation, a primary bone marrow disorder needs to be ruled out. I discussed with him my recommendations to proceed with a bone marrow biopsy ( as inpatient ) and he expressed agreement. Plan: - Please arrange for an IR guided bone marrow biopsy/aspirate - Check for flow cytometry, cytogenetics from bone marrow material. - If his cytopenias remain stable, he can be discharged home after completion of the BMBx, but please arrange for hematology outpatient follow up in a couple of weeks to review the results and discuss further recommendations. - Data of Consult Requesting Physician: Suyapa Ortiz MD Primary Care Provider: PCP [place] - Consult Narrative Reason for consult: pancytopenia. History of present illness: Mr. Velarde is a 62 year old male with history of chronic pancytopenia, ESRD admitted due to nausea, vomiting. Hematology consult was requested due to chronic, worsening pancytopenia of unclear etiology. Upon review of his records , his pancytopenia has been present at least for one year, and is characterized for normocytic anemia, resistant to prior treatments with aranesp. His WBC has remained in the range of 2-3K since Oct 2016. There is also associated thrombocytopenia, present at least since January 2016, overall stable in the 80s, but dropping to the 70s during the current admission. Prior US of the abdomen showed evidence of hepatomegaly. He is not sure whether or not he had a BMBx years ago, but is not sure whether or not the procedure was done, the location and timing. He was evaluated by hematology here in [place] in May, with a bone marrow biopsy recommended if not BMBx performed previously. He denies recent bleeding events. Denies recent febrile episodes, but reports recurrent and chronic episodes of night sweats. He reports being , having 3 adult daughters. Currently living with his brother. He is being followed closely by nephrology for his ESRD, on HD. His last ferritin levels on may 26, 2017 were 694 ng/ml. Prior labs showed a low albumin ( 3.3), but normal INR ( 1.1 on May). He reports significant improvement of his nausea since admission. Past Med Surg Social Fam HX - Past Medical History Medical history: coronary artery disease, diabetes, GERD, hyperlipidemia, hypertension, renal disease Psychiatric history: anxiety, depression - Past Surgical History Surgical History: angioplasty/stent, coronary bypass (CABG) (2v CABG in 1998, redo 3v CABG in 2002), orthopedic, other (Surgery on right knee x4, scope on left knee x1), other (Amputation of left great toe, re-attachment of right hand after accident at work) - Social History Smoking Status: Never smoker Smokeless Tobacco Status: No Alcohol use: none Drug use: none - Family History Father Adopted: No Family Member Ethnicity: Non- Living Status: Still Living Hx Family Cardiac Disorders: Yes (Coronary artery disease?) Hx Family Respiratory Disorders: No Hx Family Cancer: Yes Hx Family GI Disorders: No Hx Family Endocrine Disorder: Yes (brothers, sister) Hx Family Neuromuscular Disorders: No Hx Family Neurologic Disorders: No Hx Family HEENT Disorders: No Hx Family Autoimmune Disorders: No Brother Family Member Ethnicity: Non- Living Status: Still Living Hx Family Cardiac Disorders: Yes ([place]) Sister Family Member Ethnicity: Non- Living Status: Still Living Hx Family Endocrine Disorder: Yes (DM) Mother Adopted: No Family Member Ethnicity: Non- Living Status: Still Living Hx Family Cardiac Disorders: Yes ([place], Pacemaker) Hx Family Respiratory Disorders: Yes (COPD) Hx Family Cancer: Yes Hx Family GI Disorders: No Hx Family Endocrine Disorder: Yes (DM) Hx Family Neuromuscular Disorders: No Hx Family Neurologic Disorders: No Hx Family HEENT Disorders: No Hx Family Autoimmune Disorders: No Medications and Allergies Calcium Acetate [Phos-LO] 1,334 mg PO TIDWM 10/04/16 [History] Gabapentin [Neurontin] 300 mg PO BID 10/04/16 [History] Loratadine [Claritin] 10 mg PO DAILY 10/04/16 [History] Pantoprazole Sodium [Protonix] 40 mg PO DAILY 10/04/16 [History] Paroxetine [Paxil] 20 mg PO QAM 10/04/16 [History] Ranitidine HCl [Heartburn Relief] 150 mg PO DAILY 10/04/16 [History] Tamsulosin [Flomax] 0.4 mg PO DAILY 10/04/16 [History] Aspirin 81 mg PO DAILY #30 tab.chew 10/24/16 [Rx] Insulin ASPART [NovoLOG] 35 unit SQ BIDWM 04/25/17 [History] OxyCODONE Immed Rel [Roxicodone 5 MG] 10 mg PO Q6HR PRN 04/26/17 [History] Clopidogrel [Plavix] 75 mg PO DAILY #30 tablet 04/28/17 [Rx] Furosemide [Lasix] 60 mg PO BID 05/23/17 [History] Ferrous Sulfate 325 mg PO DAILY@0800 #30 tab 06/01/17 [Rx] Folic Acid 2 mg PO DAILY tab 06/01/17 [Rx] Metoprolol [Lopressor] 50 mg PO BID 06/04/17 [History] Docusate [Colace] 100 mg PO DAILY PRN #0 06/06/17 [Rx] Isosorbide MONOnitrate (24 HR) [Imdur] 30 mg PO DAILY #30 06/06/17 [Rx] 3 Allergy/AdvReac Type Severity Reaction Status Date / Time codeine Allergy Unknown Hives Verified 10/04/16 16:06 Methadone Allergy Unknown Rash Verified 10/04/16 16:06 Penicillins [PCN] Allergy Unknown Rash Verified 10/04/16 16:06 promethazine [From Phenergan] Allergy Unknown Hives Verified 10/04/16 16:06 trazodone Allergy Unknown Itching Verified 10/04/16 16:06 Constitutional: Present: fatigue. Absent: fever(s) Cardiovascular: Absent: chest pain, chest pain with activity, diaphoresis Respiratory: Absent: hemoptysis, pain on inspiration Gastrointestinal: Present: early satiety. Absent: diarrhea Musculoskeletal: Absent: arthralgias Integumentary: Absent: bleeding lesions Neurological: Absent: behavioral changes, lack of coordination Psychiatric: Absent: hallucinations Hematologic/Lymphatic: Present: as per HPI Oncology - Exam - Constitutional Vitals: Temp Pulse Resp BP Pulse Ox 97.7 F 66 22 129/61 96 09/24/17 16:00 09/24/17 16:00 09/24/17 16:00 09/24/17 16:00 09/24/17 16:00 - Head Head exam: Present: normal inspection, normocephalic - Eye Eye exam: Present: EOMI, normal appearance - ENT ENT exam: Present: normal exam - Neck Neck exam: Absent: tenderness, thyromegaly - Respiratory Respiratory exam: Present: CTAB. Absent: prolonged expiratory phase - Cardiovascular Cardiovascular exam: Present: RRR. Absent: irregular rhythm - GI/Abdominal GI/Abdominal exam: Present: normal bowel sounds, organomegaly (mild hepatomegaly ) - Extremities Exam Extremities exam: Present: normal inspection, pedal edema - Back Exam Back exam: Present: normal inspection. Absent: paraspinal tenderness - Neurological Exam Neurological exam: Present: alert, oriented X3 - Psychiatric Psychiatric exam: Present: normal affect, normal mood - Skin Skin exam: Present: normal color, pallor Oncology - Results Labs: Short CBC 09/24/17 Range/Units 03:22 WBC 2.8 L (4.3-11.1) K/mcL Hgb 8.2 L (12.9-16.9) g/dL Hct 24.9 L (37.5-50.1) % Plt Count 74 L (140-400) K/mcL Neutrophils # 1.8 (1.6-8.9) K/mcL BMP 09/24/17 03:22 Sodium 135 L Potassium 4.6 H Chloride 97 L Carbon Dioxide 27 BUN 32 H D Creatinine 5.02 H D Glucose 163 H Calcium 8.9 Consult Discharge Plan - Plan Additional Instructions: RISK FACTORS: STOP SMOKING: If you smoke, STOP. Smoking or tobacco use significantly increases your risk of heart disease because nicotine causes the arteries to narrow or constrict. It also causes fats to stick to the artery. Your chances of having a heart attack are greatly increased if you continue to smoke. For more information, call the education line for smoking cessation 1-513-COBQGSK EAT A LOW FAT/CHOLESTEROL/SODIUM DIET: This diet may help reduce your chances of having a heart attack. LIFTING: Avoid lifting anything more than 10 pounds for 5-7 days Prior to straining, laughing, sneezing and/or coughing, apply manual pressure directly over insertion site. ACTIVITY: You may walk or climb stairs as tolerated You can resume sexual activity as tolerated In general, you are encouraged to engage in a minimum of 30 minutes or more of moderate intensity physical activity, such as brisk walking, daily or at least 3 -4 times weekly BATHING Do not submerge the site into water (bath tub, hot tub, swimming pool) for 1 week. This can be a source for infection into the blood stream. You may shower after 24 hours SITE CARE: After 24 hours, you may remove the dressing and leave the site open to air. Keep the site clean and dry. Clean gently and pat dry. You can expect bruising and tenderness that gradually resolve within a week or two. Return to work as instructed per your physician Resume driving as instructed per physician Keep all scheduled follow up appointments Resume medications as instructed IMPORTANT: If prescribed a Platelet Aggregation Inhibitor such as, Plavix, Brilinta or Effient: Duration of therapy is minimum one year These medications are often used in combination with Aspirin in prevention of future heart attacks Never discontinue unless consult with your [employer] STROKE (CVA) Risk factors for a stroke are: Age, cigarette smoking, diabetes, excessive alcohol consumption, family history, high blood pressure, overweight, physical inactivity, prior stroke, heart attack, diagnosis of carotid artery stenosis or other artery disease. Warning signs: Sudden numbness or weakness of the face, arm or leg; especially on one side of the body, sudden confusion, trouble speaking or understanding, sudden trouble seeing in one or both eyes, sudden trouble walking, dizziness, loss of balance or coordination, sudden severe headache with no cause. Call 911 or go to the Emergency Room. CONGESTIVE HEART FAILURE: If you have been diagnosed with Congestive Heart Failure (CHF) and your symptoms return, make an appointment with your physician Weigh yourself daily. Notify your physician if you have a weight gain of two or more pounds in one day or five or more pounds in one week. If you experience any difficulty breathing, please call 911 BLEEDING: Although the risk of bleeding is minimal, it can happen. If you have any bleeding from the site, apply firm pressure above the puncture site for 10-15 minutes. If the bleeding does not stop, continue manual pressure and call 911 Contact your physician if: You develop a fever greater than 101 degrees Fahrenheit Your site becomes reddened or has any drainage You have an increase in pain or burning at the site or if a large knot forms at the site. If you experience chest pain, shortness of breath, dizziness, or extreme tiredness, stop the activity and rest. Please notify your physicians office if you experience any of these symptoms and they are not relieved by rest please call 911! [facility]errals: [facility] [Primary Care Provider[facility] -
[2017-09-24] MEDS: Cefepime HCl 1,000 MG in Water for inj. (sterile) 10 ML IVP SCH (20:55)
[2017-09-25] MEDS: *HR* OxyCODONE Immed Rel 5 MG TABLET PO PRN (01:08)
[2017-09-25] MEDS: Insulin LISPRO 300 UNITS/3 ML VIAL SQ SCH ×7 (07:54→20:19)
[2017-09-25 07:57] LABS: Calcium 9.3 mg/dL (8.6-10.8); Potassium 4.3 mEq/L (3.5-4.5)
[2017-09-25 08:09] LABS: Basophils % 0.3 %; Immature Granulocytes % 0.3 % (0-4); Red Cell Distribution Width 14.4 % (11.5-14.5)
[2017-09-25] MEDS: Calcium Acetate 667 MG CAPSULE PO SCH ×3 (08:10→17:21)
[2017-09-25 08:11] LABS: Eosinophils # 0.1 K/mcL (0.0-0.6); Eosinophils % 1.9 %; Hematocrit 26.5 % (37.5-50.1); Hemoglobin 8.6 g/dL (12.9-16.9); Immature Platelets 9.8 % (1.1-6.1); Lymphocytes # 0.6 K/mcL (0.6-4.6); Lymphocytes % 15.2 %; Mean Corpuscular HGB Conc 32.5 g/dL (31.6-35.5); Mean Corpuscular Hemoglobin 30.8 pg (28.0-33.3); Mean Platelet Volume 12.9 fL (9.4-12.4); Monocytes # 0.5 K/mcL (0.0-1.3); Monocytes % 12.7 %; Neutrophils # 2.5 K/mcL (1.6-8.9); Red Blood Count 2.79 M/mcL (4.19-5.50); Segmented Neutrophils % 69.6 %
[2017-09-25] MEDS: Isosorbide MONOnitrate (24 HR) 60 MG TAB.ER.24H PO SCH (08:11)
[2017-09-25] MEDS: Gabapentin 300 MG CAPSULE PO SCH ×2 (08:11→20:31)
[2017-09-25] MEDS: Folic Acid 1 MG TABLET PO SCH (08:11)
[2017-09-25] MEDS: Furosemide 40 MG/4 ML VIAL IVP SCH ×2 (08:11→17:21)
[2017-09-25] MEDS: Lactobacillus 1 EACH CAP.SPRINK PO SCH (08:11)
[2017-09-25 08:12] LABS: Platelet Count 84 K/mcL (140-400)
[2017-09-25] MEDS: traMADol 50 MG TABLET PO SCH ×3 (08:12→20:31)
[2017-09-25] MEDS: Famotidine 20 MG TABLET PO SCH (08:12)
[2017-09-25] MEDS: Aspirin 81 MG TAB.CHEW PO SCH (08:12)
--- NOTE | 2017-09-25 08:59 | Nephrology Progress Note ---
Date of Encounter: 09/25/17 Time of Encounter: 08:50 - Assessment and Plan (1) ESRD (end stage renal disease) on dialysis Current Visit: Yes Status: Chronic S/P LHC-stent x 1. No HD today, keeping MWF schedule. Pancytopenia. Neupogen/ Aranesp resistant. Scheduled for bone marrow bx today. Subjective Principal diagnosis: CAD, CHF Interval history: Laying in bed. NPO. States going for bone marrow bx this afternoon Objective - Vital Signs Vital signs: Vital Signs Temp Pulse Resp BP Pulse Ox 09/25/17 07:48 98.9 F 71 16 132/64 96 09/25/17 04:31 98.7 F 68 17 138/66 96 09/24/17 23:53 18 93 09/24/17 23:21 98.1 F 60 16 131/67 94 09/24/17 19:20 98.0 F 64 16 144/65 94 09/24/17 16:00 97.7 F 66 22 129/61 96 09/24/17 14:15 97.1 F L 18 130/63 09/24/17 13:55 100/52 09/24/17 13:25 127/63 09/24/17 12:55 114/55 09/24/17 12:25 121/57 09/24/17 11:55 117/55 09/24/17 11:25 128/52 09/24/17 10:55 97 F L 18 130/62 Intake and Output 09/24/17 09/25/17 09/25/17 23:59 07:59 15:59 Intake Total 500 / 500 Output Total 325 / 325 150 / 150 Balance 175 / 175 -150 / -150 Intake: IV Fluids 20 / 20 Maxipime 1,000 MG In Water for 20 / 20 inj. (sterile) 10 ML @ 150 mls/ hr IVP Q24H [facility] Rx#:[id number] Oral 480 / 480 Output: Urine 325 / 325 150 / 150 Other: Meal Dinner Breakfast Percent of Meal Consumed 90% 20% Weight 98.6 kg Blood Glucose* 108 88 Patient Weight 09/25/17 23:59 Weight 98.6 kg - General Appearance General appearance: Present: well-developed, well-nourished, appears started age EENT: Present: mucous membranes moist Neck: Present: no JVD Respiratory: Present: clear Cardiology: Present: no edema, regular rate, regular rhythm Gastrointestinal: Present: normoactive bowel sounds, no tenderness Integumentary: Present: warm and dry Neurologic: Present: alert and oriented x3 Psychiatric: Present: mood/affect appropriate, cooperative - Lab 09/25/17 06:53 09/25/17 06:53 Most recent lab results Calcium 9.3 mg/dL (8.6-10.8) 09/25/17 06:53 Phosphorus 3.3 mg/dL (2.3-4.7) 09/19/17 04:01 Magnesium 1.7 mg/dL (1.6-2.6) 09/21/17 08:28 - VTE Documentation of Mechanical Device: Intermittent pneumatic compression device Consult Discharge Plan - Plan Additional Instructions: RISK FACTORS: STOP SMOKING: If you smoke, STOP. Smoking or tobacco use significantly increases your risk of heart disease because nicotine causes the arteries to narrow or constrict. It also causes fats to stick to the artery. Your chances of having a heart attack are greatly increased if you continue to smoke. For more information, call the education line for smoking cessation 2-811-VLZQUFY EAT A LOW FAT/CHOLESTEROL/SODIUM DIET: This diet may help reduce your chances of having a heart attack. LIFTING: Avoid lifting anything more than 10 pounds for 5-7 days Prior to straining, laughing, sneezing and/or coughing, apply manual pressure directly over insertion site. ACTIVITY: You may walk or climb stairs as tolerated You can resume sexual activity as tolerated In general, you are encouraged to engage in a minimum of 30 minutes or more of moderate intensity physical activity, such as brisk walking, daily or at least 3 -4 times weekly BATHING Do not submerge the site into water (bath tub, hot tub, swimming pool) for 1 week. This can be a source for infection into the blood stream. You may shower after 24 hours SITE CARE: After 24 hours, you may remove the dressing and leave the site open to air. Keep the site clean and dry. Clean gently and pat dry. You can expect bruising and tenderness that gradually resolve within a week or two. Return to work as instructed per your physician Resume driving as instructed per physician Keep all scheduled follow up appointments Resume medications as instructed IMPORTANT: If prescribed a Platelet Aggregation Inhibitor such as, Plavix, Brilinta or Effient: Duration of therapy is minimum one year These medications are often used in combination with Aspirin in prevention of future heart attacks Never discontinue unless consult with your [employer] STROKE (CVA) Risk factors for a stroke are: Age, cigarette smoking, diabetes, excessive alcohol consumption, family history, high blood pressure, overweight, physical inactivity, prior stroke, heart attack, diagnosis of carotid artery stenosis or other artery disease. Warning signs: Sudden numbness or weakness of the face, arm or leg; especially on one side of the body, sudden confusion, trouble speaking or understanding, sudden trouble seeing in one or both eyes, sudden trouble walking, dizziness, loss of balance or coordination, sudden severe headache with no cause. Call 911 or go to the Emergency Room. CONGESTIVE HEART FAILURE: If you have been diagnosed with Congestive Heart Failure (CHF) and your symptoms return, make an appointment with your physician Weigh yourself daily. Notify your physician if you have a weight gain of two or more pounds in one day or five or more pounds in one week. If you experience any difficulty breathing, please call 911 BLEEDING: Although the risk of bleeding is minimal, it can happen. If you have any bleeding from the site, apply firm pressure above the puncture site for 10-15 minutes. If the bleeding does not stop, continue manual pressure and call 911 Contact your physician if: You develop a fever greater than 101 degrees Fahrenheit Your site becomes reddened or has any drainage You have an increase in pain or burning at the site or if a large knot forms at the site. If you experience chest pain, shortness of breath, dizziness, or extreme tiredness, stop the activity and rest. Please notify your physicians office if you experience any of these symptoms and they are not relieved by rest please call 911! [facility]errals: [facility] [Primary Care Provider[facility] -
[2017-09-25] MEDS: Insulin DETEMIR 100 UNIT/ML X5UNITS SQ SCH ×2 (09:01→20:31)
[2017-09-25] MEDS ORDERED: *HR* Midazolam HCl 2 MG/2 ML VIAL ONE (14:26)
[2017-09-25] MEDS ORDERED: 0.9 % Sodium Chloride 500 ML ONE (14:27)
[2017-09-25] MEDS ORDERED: *HR* FentaNYL (PF) 100 MCG/2 ML VIAL ONE (14:27)
[2017-09-25] MEDS ORDERED: *HR* FentaNYL (PF) 100 MCG/2 ML VIAL IVP ONE (15:54)
[2017-09-25] MEDS ORDERED: *HR* Midazolam HCl 2 MG/2 ML VIAL IVP ONE (15:54)
--- NOTE | 2017-09-25 16:30 | Internal Med Progress Note ---
Date of Encounter: 09/25/17 Time of Encounter: 09:30 - Assessment and plan (1) Pancytopenia Current Visit: Yes Status: Acute Assessment and plan: Unclear etiology. Pancytopenia Peripheral smear - reviewed IR guided bone marrow biopsy done today - flow cytometry, cytogenetics from bone marrow material Oncology consult - appreciate input (2) Pneumonia Current Visit: Yes Status: Acute Assessment and plan: Now improved Continue DuoNeb breathing treatment, IV Cefepime, discharge on Levaquin Chest x-ray - airspace opacity seen on lateral view, small right pleural effusion Cultures - no growth Qualifiers: Pneumonia type: due to unspecified organism Laterality: bilateral Lung location: lower lobe of lung Qualified Code(s): J18.9 - Pneumonia, unspecified organism (3) Congestive heart failure Current Visit: No Status: Acute Assessment and plan: Systolic dysfunction CHF, LVEF 35% - stable - not in exacerbation Continue Lopressor, Lasix Fluid restriction, strict I's and O's, daily weight Qualifiers: Congestive heart failure type: diastolic Congestive heart failure chronicity: unspecified congestive heart failure chronicity Qualified Code(s) : I50.30 - Unspecified diastolic (congestive) heart failure (4) CAD (coronary artery disease), [place] coronary artery Current Visit: Yes Status: Acute Assessment and plan: Status post LHC - ABBI with PTCA to left main Continue Aspirin, Plavix, Lipitor Qualifiers: [place] vs. transplanted heart: [place] heart Associated angina: without angina Qualified Code(s): I25.10 - Atherosclerotic heart disease of [place] coronary artery without angina pectoris (5) ESRD (end stage renal disease) on dialysis Current Visit: Yes Status: Chronic Assessment and plan: Nephrology consulted for hemodialysis needs Receiving HD per schedule - Friday Continue regular hemodialysis on discharge (6) Diabetes mellitus Current Visit: Yes Status: Chronic Assessment and plan: Type 2 diabetes mellitus, insulin-dependent, hyperglycemia Sliding-scale insulin, glucose checks Qualifiers: Diabetes mellitus type: type 2 Diabetes mellitus complication status: with kidney complications Diabetes mellitus complication detail: with chronic kidney disease Diabetes mellitus watermaster insulin use: with watermaster use Chronic kidney disease stage: on chronic dialysis Qualified Code(s): E11.22 - Type 2 diabetes mellitus with diabetic chronic kidney disease; N18.6 - End stage renal disease; Z99.2 - Dependence on renal dialysis; Z99.2 - Dependence on renal dialysis; Z99.2 - Dependence on renal dialysis; N18.6 - End stage renal disease; N18.6 - End stage renal disease; N18.6 - End stage renal disease ; Z79.4 - skilled nursing (current) use of insulin; Z79.4 - skilled nursing (current) use of insulin; Z79.4 - watermaster (current) use of insulin; Z79.4 - skilled nursing ( current) use of insulin; Z99.2 - Dependence on renal dialysis (7) DVT prophylaxis Current Visit: Yes Status: Acute Assessment and plan: Continue SCDs, ambulate - Time Spent With Patient 25 - 35 minutes - Subjective Interval history: Examined this evening. Patient is awake and alert. Not in any distress. Denies chest pain or shortness of breath. Tolerating oral diet well. No fever. Hemodynamically stable. No other acute events or complaints. Anticipate discharge tomorrow. Oncology has evaluated patient. Bone marrow biopsy today. Discharge in a.m. if patient tolerates procedure well. - Constitutional Vitals: Temp Pulse Resp BP Pulse Ox 98.4 F 65 13 120/66 100 09/25/17 11:11 09/25/17 14:38 09/25/17 14:38 09/25/17 14:38 09/25/17 14:38 General appearance: Present: cooperative, A&O X 3, pleasant, no acute distress, answers questions appropriately - Head Head exam: Present: atraumatic - Eye Eye exam: Present: EOMI - ENT ENT exam: Present: mucous membranes moist - Respiratory Respiratory exam: Present: CTAB. Absent: chest wall tenderness, rales, rhonchi , wheezes, tachypnea - Cardiovascular Cardiovascular exam: Present: RRR, +S1, +S2 - GI/Abdominal GI/Abdominal exam: Present: soft. Absent: distended, firm, guarding, tenderness - Extremities Exam Extremities exam: Present: radial pulses palpable and symmetrical. Absent: calf tenderness, cyanotic, pedal edema - Neurological Exam Neurological exam: Present: alert, oriented X3, no focal deficits. Absent: facial droop, speech deficit Internal Medicine: Result - Labs CBC & Chem 7: 09/25/17 06:53 09/25/17 06:53 Labs: Short CBC 09/25/17 Range/Units 06:53 WBC 3.6 L (4.3-11.1) K/mcL Hgb 8.6 L (12.9-16.9) g/dL Hct 26.5 L (37.5-50.1) % Plt Count 84 L (140-400) K/mcL Neutrophils # 2.5 (1.6-8.9) K/mcL BMP 09/25/17 06:53 Sodium 135 L Potassium 4.3 Chloride 99 Carbon Dioxide 28 BUN 22 D Creatinine 3.86 H Glucose 83 Calcium 9.3 - Impressions Impressions Chest X-Ray 09/22/17 06:00 IMPRESSION: Small right pleural effusion with airspace opacity in the retrocardiac region seen only on the lateral view. Pneumonia is not excluded. Otherwise stable cardiomegaly and interstitial edema. D/ / 09/22/2017 14:20:07 Juani Stephenson MD / [email or web address] Interpreting Provider: Juani Stephenson MD - V[facility] Documentation of Mechanical Device: Intermittent pneumatic compression device Consult Discharge Plan - Plan Additional Instructions: RISK FACTORS: STOP SMOKING: If you smoke, STOP. Smoking or tobacco use significantly increases your risk of heart disease because nicotine causes the arteries to narrow or constrict. It also causes fats to stick to the artery. Your chances of having a heart attack are greatly increased if you continue to smoke. For more information, call the education line for smoking cessation 3-002-ZTACKZV EAT A LOW FAT/CHOLESTEROL/SODIUM DIET: This diet may help reduce your chances of having a heart attack. LIFTING: Avoid lifting anything more than 10 pounds for 5-7 days Prior to straining, laughing, sneezing and/or coughing, apply manual pressure directly over insertion site. ACTIVITY: You may walk or climb stairs as tolerated You can resume sexual activity as tolerated In general, you are encouraged to engage in a minimum of 30 minutes or more of moderate intensity physical activity, such as brisk walking, daily or at least 3 -4 times weekly BATHING Do not submerge the site into water (bath tub, hot tub, swimming pool) for 1 week. This can be a source for infection into the blood stream. You may shower after 24 hours SITE CARE: After 24 hours, you may remove the dressing and leave the site open to air. Keep the site clean and dry. Clean gently and pat dry. You can expect bruising and tenderness that gradually resolve within a week or two. Return to work as instructed per your physician Resume driving as instructed per physician Keep all scheduled follow up appointments Resume medications as instructed IMPORTANT: If prescribed a Platelet Aggregation Inhibitor such as, Plavix, Brilinta or Effient: Duration of therapy is minimum one year These medications are often used in combination with Aspirin in prevention of future heart attacks Never discontinue unless consult with your Motion Picture Director STROKE (CVA) Risk factors for a stroke are: Age, cigarette smoking, diabetes, excessive alcohol consumption, family history, high blood pressure, overweight, physical inactivity, prior stroke, heart attack, diagnosis of carotid artery stenosis or other artery disease. Warning signs: Sudden numbness or weakness of the face, arm or leg; especially on one side of the body, sudden confusion, trouble speaking or understanding, sudden trouble seeing in one or both eyes, sudden trouble walking, dizziness, loss of balance or coordination, sudden severe headache with no cause. Call 911 or go to the Emergency Room. CONGESTIVE HEART FAILURE: If you have been diagnosed with Congestive Heart Failure (CHF) and your symptoms return, make an appointment with your physician Weigh yourself daily. Notify your physician if you have a weight gain of two or more pounds in one day or five or more pounds in one week. If you experience any difficulty breathing, please call 911 BLEEDING: Although the risk of bleeding is minimal, it can happen. If you have any bleeding from the site, apply firm pressure above the puncture site for 10-15 minutes. If the bleeding does not stop, continue manual pressure and call 911 Contact your physician if: You develop a fever greater than 101 degrees Fahrenheit Your site becomes reddened or has any drainage You have an increase in pain or burning at the site or if a large knot forms at the site. If you experience chest pain, shortness of breath, dizziness, or extreme tiredness, stop the activity and rest. Please notify your physicians office if you experience any of these symptoms and they are not relieved by rest please call 911! [facility]errals: [facility] [Primary Care Provider[facility] -
[2017-09-25] MEDS: Cefepime HCl 1,000 MG in Water for inj. (sterile) 10 ML IVP SCH (20:31)
[2017-09-26] MEDS: *HR* OxyCODONE Immed Rel 5 MG TABLET PO PRN (03:58)
[2017-09-26 07:26] LABS: Hematocrit 26.6 % (37.5-50.1); Hemoglobin 8.5 g/dL (12.9-16.9); Mean Platelet Volume 11.9 fL (9.4-12.4); Red Blood Count 2.83 M/mcL (4.19-5.50); Red Cell Distribution Width 14.3 % (11.5-14.5)
[2017-09-26 07:28] LABS: Platelet Count 81 K/mcL (140-400)
[2017-09-26 07:40] LABS: Calcium 9.3 mg/dL (8.6-10.8); Potassium 4.6 mEq/L (3.5-4.5)
--- NOTE | 2017-09-26 08:48 | Nephrology Progress Note ---
Date of Encounter: 09/26/17 Time of Encounter: 08:35 - Assessment and Plan (1) ESRD (end stage renal disease) on dialysis Current Visit: Yes Status: Chronic S/P LHC-stent x 1. S/P bone marrow bx. HD today, keeping MWF schedule. Subjective Principal diagnosis: CAD, CHF Interval history: S/P bone Marrow bx. Sitting on edge of bed. No new complaints. Thinks is being discharged after HD today Objective - Vital Signs Vital signs: Vital Signs Temp Pulse Resp BP Pulse Ox 09/26/17 07:34 98.5 F 71 14 164/69 97 09/26/17 03:05 97.5 F L 76 16 134/64 96 09/25/17 23:21 97.6 F 63 16 147/68 97 09/25/17 18:53 97.9 F 60 18 108/51 95 09/25/17 17:06 97.5 F L 64 16 132/68 97 09/25/17 14:38 65 13 120/66 100 09/25/17 14:33 67 13 135/62 99 09/25/17 14:26 68 13 141/65 100 09/25/17 11:11 98.4 F 67 17 113/54 95 Intake and Output 09/25/17 09/26/17 09/26/17 23:59 07:59 15:59 Intake Total 120 / 120 Balance 120 / 120 Intake: Oral 120 / 120 Other: Meal Dinner Percent of Meal Consumed 85% Weight 95.617 kg Blood Glucose* 115 99 Patient Weight 09/26/17 23:59 Weight 95.617 kg - General Appearance General appearance: Present: well-developed, well-nourished, appears started age EENT: Present: mucous membranes moist Neck: Present: no JVD Respiratory: Present: clear Cardiology: Present: no edema, regular rate, regular rhythm Gastrointestinal: Present: normoactive bowel sounds, no tenderness Integumentary: Present: warm and dry Neurologic: Present: alert and oriented x3 Psychiatric: Present: mood/affect appropriate, cooperative - Lab 09/26/17 07:00 09/26/17 07:00 Most recent lab results Calcium 9.3 mg/dL (8.6-10.8) 09/26/17 07:00 Phosphorus 3.3 mg/dL (2.3-4.7) 09/19/17 04:01 Magnesium 1.7 mg/dL (1.6-2.6) 09/21/17 08:28 - VTE Documentation of Mechanical Device: Intermittent pneumatic compression device Consult Discharge Plan - Plan Additional Instructions: RISK FACTORS: STOP SMOKING: If you smoke, STOP. Smoking or tobacco use significantly increases your risk of heart disease because nicotine causes the arteries to narrow or constrict. It also causes fats to stick to the artery. Your chances of having a heart attack are greatly increased if you continue to smoke. For more information, call the education line for smoking cessation 1-678-VPNYMFM EAT A LOW FAT/CHOLESTEROL/SODIUM DIET: This diet may help reduce your chances of having a heart attack. LIFTING: Avoid lifting anything more than 10 pounds for 5-7 days Prior to straining, laughing, sneezing and/or coughing, apply manual pressure directly over insertion site. ACTIVITY: You may walk or climb stairs as tolerated You can resume sexual activity as tolerated In general, you are encouraged to engage in a minimum of 30 minutes or more of moderate intensity physical activity, such as brisk walking, daily or at least 3 -4 times weekly BATHING Do not submerge the site into water (bath tub, hot tub, swimming pool) for 1 week. This can be a source for infection into the blood stream. You may shower after 24 hours SITE CARE: After 24 hours, you may remove the dressing and leave the site open to air. Keep the site clean and dry. Clean gently and pat dry. You can expect bruising and tenderness that gradually resolve within a week or two. Return to work as instructed per your physician Resume driving as instructed per physician Keep all scheduled follow up appointments Resume medications as instructed IMPORTANT: If prescribed a Platelet Aggregation Inhibitor such as, Plavix, Brilinta or Effient: Duration of therapy is minimum one year These medications are often used in combination with Aspirin in prevention of future heart attacks Never discontinue unless consult with your Photolettering Machine Operator STROKE (CVA) Risk factors for a stroke are: Age, cigarette smoking, diabetes, excessive alcohol consumption, family history, high blood pressure, overweight, physical inactivity, prior stroke, heart attack, diagnosis of carotid artery stenosis or other artery disease. Warning signs: Sudden numbness or weakness of the face, arm or leg; especially on one side of the body, sudden confusion, trouble speaking or understanding, sudden trouble seeing in one or both eyes, sudden trouble walking, dizziness, loss of balance or coordination, sudden severe headache with no cause. Call 911 or go to the Emergency Room. CONGESTIVE HEART FAILURE: If you have been diagnosed with Congestive Heart Failure (CHF) and your symptoms return, make an appointment with your physician Weigh yourself daily. Notify your physician if you have a weight gain of two or more pounds in one day or five or more pounds in one week. If you experience any difficulty breathing, please call 911 BLEEDING: Although the risk of bleeding is minimal, it can happen. If you have any bleeding from the site, apply firm pressure above the puncture site for 10-15 minutes. If the bleeding does not stop, continue manual pressure and call 911 Contact your physician if: You develop a fever greater than 101 degrees Fahrenheit Your site becomes reddened or has any drainage You have an increase in pain or burning at the site or if a large knot forms at the site. If you experience chest pain, shortness of breath, dizziness, or extreme tiredness, stop the activity and rest. Please notify your physicians office if you experience any of these symptoms and they are not relieved by rest please call 911! [facility]errals: [facility] [Primary Care Provider] -
[2017-09-26] MEDS: Insulin LISPRO 300 UNITS/3 ML VIAL SQ SCH ×4 (08:58→13:29)
[2017-09-26] MEDS: Aspirin 81 MG TAB.CHEW PO SCH (09:13)
[2017-09-26] MEDS: Gabapentin 300 MG CAPSULE PO SCH (09:13)
[2017-09-26] MEDS: Lactobacillus 1 EACH CAP.SPRINK PO SCH (09:13)
[2017-09-26] MEDS: traMADol 50 MG TABLET PO SCH (09:13)
[2017-09-26] MEDS: Calcium Acetate 667 MG CAPSULE PO SCH ×2 (09:13→13:29)
[2017-09-26] MEDS: Famotidine 20 MG TABLET PO SCH (09:13)
[2017-09-26] MEDS: Folic Acid 1 MG TABLET PO SCH (09:13)
[2017-09-26] MEDS: Isosorbide MONOnitrate (24 HR) 60 MG TAB.ER.24H PO SCH (09:14)
[2017-09-26] MEDS: Insulin DETEMIR 100 UNIT/ML X5UNITS SQ SCH (09:14)
[2017-09-26] MEDS ORDERED: 0.9 % Sodium Chloride 250 ML IVC PRN (09:34)
--- NOTE | 2017-09-26 10:02 | Discharge Summary ---
Date of Encounter: 09/26/17 Time of Encounter: 09:40 - Discharge Diagnosis (1) Pancytopenia Priority: Primary Status: Acute Comments: Unclear etiology - Pancytopenia Peripheral smear - reviewed IR guided bone marrow bx done - flow cytometry, cytogenetics from bone marrow material Oncology consult - appreciate input Follow-up with oncology as outpatient (2) Pneumonia Priority: Primary Status: Acute Comments: Now improved Continue DuoNeb breathing treatment, IV Cefepime course complete - no need for antibiotics on discharge Chest x-ray - airspace opacity seen on lateral view, small right pleural effusion Cultures - no growth Qualifiers: Pneumonia type: due to unspecified organism Laterality: bilateral Lung location: lower lobe of lung Qualified Code(s): J18.9 - Pneumonia, unspecified organism (3) Congestive heart failure Priority: Primary Status: Acute Comments: Systolic dysfunction CHF, LVEF 35% - stable - not in exacerbation Continue Lopressor, Lasix Fluid restriction, strict I's and O's, daily weight Qualifiers: Congestive heart failure type: diastolic Congestive heart failure chronicity: unspecified congestive heart failure chronicity Qualified Code(s) : I50.30 - Unspecified diastolic (congestive) heart failure (4) CAD (coronary artery disease), [place] coronary artery Priority: Secondary Status: Acute Comments: Status post LHC - ABBI with PTCA to left main Continue Aspirin, Plavix, Lipitor Qualifiers: [place] vs. transplanted heart: [place] heart Associated angina: without angina Qualified Code(s): I25.10 - Atherosclerotic heart disease of [place] coronary artery without angina pectoris (5) ESRD (end stage renal disease) on dialysis Priority: Secondary Status: Chronic Comments: Nephrology consulted for hemodialysis needs Receiving HD per schedule - Friday Continue regular hemodialysis on discharge (6) Diabetes mellitus Priority: Secondary Status: Chronic Comments: Type 2 diabetes mellitus, insulin-dependent, hyperglycemia Continue regular home dose of insulin Qualifiers: Diabetes mellitus type: type 2 Diabetes mellitus complication status: with kidney complications Diabetes mellitus complication detail: with chronic kidney disease 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 Chronic kidney disease stage: on chronic dialysis Qualified Code(s): E11.22 - Type 2 diabetes mellitus with diabetic chronic kidney disease; N18.6 - End stage renal disease; N18.6 - End stage renal disease; N18.6 - End stage renal disease; N18.6 - End stage renal disease; 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; 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; Z79.4 - [facility] (current ) use of insulin; Z79.4 - [facility] (current) use of insulin; Z99.2 - Dependence on renal dialysis; Z99.2 - Dependence on renal dialysis; Z99.2 - Dependence on renal dialysis; Z99.2 - Dependence on renal dialysis - Discharge Medications Prescriptions: Atorvastatin Calcium [Lipitor] 20 mg PO HS #30 tablet Home Medications: Calcium Acetate [Phos-LO] 1,334 mg PO TIDWM 10/04/16 [History] Gabapentin [Neurontin] 300 mg PO BID 10/04/16 [History] Loratadine [Claritin] 10 mg PO DAILY 10/04/16 [History] Pantoprazole Sodium [Protonix] 40 mg PO DAILY 10/04/16 [History] Paroxetine [Paxil] 20 mg PO QAM 10/04/16 [History] Ranitidine HCl [Heartburn Relief] 150 mg PO DAILY 10/04/16 [History] Tamsulosin [Flomax] 0.4 mg PO DAILY 10/04/16 [History] Aspirin 81 mg PO DAILY #30 tab.chew 10/24/16 [Rx] Insulin ASPART [NovoLOG] 35 unit SQ BIDWM 04/25/17 [History] OxyCODONE Immed Rel [Roxicodone 5 MG] 10 mg PO Q6HR PRN 04/26/17 [History] Clopidogrel [Plavix] 75 mg PO DAILY #30 tablet 04/28/17 [Rx] Furosemide [Lasix] 60 mg PO BID 05/23/17 [History] Ferrous Sulfate 325 mg PO DAILY@0800 #30 tab 06/01/17 [Rx] Metoprolol [Lopressor] 50 mg PO BID 06/04/17 [History] Docusate [Colace] 100 mg PO DAILY PRN #0 06/06/17 [Rx] Isosorbide MONOnitrate (24 HR) [Imdur] 30 mg PO DAILY #30 06/06/17 [Rx] Atorvastatin Calcium [Lipitor] 20 mg PO HS #30 tablet 09/26/17 [Rx] Folic Acid 2 mg PO DAILY #0 tab 09/26/17 [Rx] Allergies/Adverse Reactions: 3 Allergy/AdvReac Type Severity Reaction Status Date / Time codeine Allergy Unknown Hives Verified 10/04/16 16:06 Methadone Allergy Unknown Rash Verified 10/04/16 16:06 Penicillins [PCN] Allergy Unknown Rash Verified 10/04/16 16:06 promethazine [From Phenergan] Allergy Unknown Hives Verified 10/04/16 16:06 trazodone Allergy Unknown Itching Verified 10/04/16 16:06 Procedures/tests Complete & Pending: Procedures Performed prior 72 hours Category Date Time Status CT guided biopsy [CT] Routine Cat Scan 09/25/[address] biopsy bone marrow [CT] Routine Exams 09/25/17 Taken Date of admission: 09/16/17 01:19 Primary care physician: [facility] Consults: 09/16/17 08:45 Consult to Nephrology [CONS] Routine Consulting Provider: [facility] Reason for Consult: ESRD, for HD Call Completed: No 09/17/17 08:30 Consult to Dialysis [CONS] ONCE 09/18/17 11:20 Consult to Cardiology [CONS] Routine Comment: Consulting Provider: Cardiology [facility] Reason for Consult: Exertional dyspnea, fatigue, abnormal LHC Call Completed: Yes 09/19/17 09:15 Consult to Dialysis [CONS] ONCE 09/19/17 10:07 Consult to Cardiac Rehabilitation-Phase1 [CONS] Routine Comment: Reason for Consult: CAD s/p PCI Call Completed: No 09/19/17 18:30 Consult to Speech Therapy [CONS] Routine Comment: Evaluate, develop and implement POC Reason for Consult: Possible dysphagia Call Completed: No 09/22/17 08:45 Consult to Dialysis [CONS] ONCE 09/24/17 08:15 Consult to Dialysis [CONS] ONCE 09/24/17 15:35 Consult to Oncology [CONS] Routine Consulting Provider: [facility] Reason for Consult: pancytopenia, possible need for bone marrow biopsy Call Completed: No 09/25/17 07:10 Consult to Interventional Radiology [CONS] Routine Consulting Provider: Radiology [facility] Reason for Consult: bone marrow biopsy for pancytopenia Call Completed: Yes 09/26/17 09:45 Consult to Dialysis [CONS] ONCE Anticipated date of discharge: 09/26/17 - Patient Status Disposition: Home, Self-Care Condition: Good Functional capacity at discharge: independent ambulation Overall status at discharge: patient is back to baseline - Discharge Instructions Follow Up With: [facility],PCP [Primary Care Provider] - Dot Beebe MD [Partnered Physician] - Additional Instructions: RISK FACTORS: STOP SMOKING: If you smoke, STOP. Smoking or tobacco use significantly increases your risk of heart disease because nicotine causes the arteries to narrow or constrict. It also causes fats to stick to the artery. Your chances of having a heart attack are greatly increased if you continue to smoke. For more information, call the education line for smoking cessation 6-524-QGNRSCI EAT A LOW FAT/CHOLESTEROL/SODIUM DIET: This diet may help reduce your chances of having a heart attack. - Continue all meds as per discharge instructions - Return if symptoms worsen - Advised to follow up with oncology/hematology as outpatient - Advised to follow-up with PCP at the [facility] - Diet and Activity Activity: increase activity as tolerated, resume usual activities as tolerated Diet: advance to your usual diet Hospital course: Mr. Velarde is a 62 year old male with past medical history of CHF, coronary artery disease, ESRD, diabetes, GERD, hyperlipidemia, hypertension, anxiety and depression. He presented to ED with complaints of nausea and vomiting. The patient also initially had diabetic ketoacidosis and was started on IV insulin drip and IV fluids. Abdominal pain and nausea vomiting most likely due to DKA. Patient was also having acute exacerbation of CHF. He was then given Lasix and was receiving hemodialysis as per his regular schedule. CHF is now improved. He is tolerating hemodialysis sessions well. Patient was continued on his regular home dose of aspirin and Plavix and statin and beta sam. Patient has a history of severe left ventricular diastolic dysfunction. Nephrology has evaluated the patient and has been following the patient. Cardiology has also evaluated the patient. Patient does have chronic anemia and also pancytopenia. Oncology recommended bone marrow biopsy and follow-up as outpatient. Patient tolerated bone marrow biopsy procedure well. Patient was also on IV cefepime for pneumonia and he has completed 7 day course. He does not require any more antibiotics. He is currently ambulating well and tolerating oral diet well. No other acute events or complications during his stay in the hospital. Advised to return if symptoms worsen. Follow up with primary care physician. Continue regular hemodialysis sessions. Patient has been explained about his condition and plan of care in detail. He understood and agreed. No unanswered questions. Patient is being discharged in stable condition. - Time Spent with Patient Total time spent providing and/or coordinating discharge services: Greater than 30 minutes - Constitutional Vitals: Temp Pulse Resp BP Pulse Ox 98.5 F 71 14 164/69 97 09/26/17 07:34 09/26/17 07:34 09/26/17 07:34 09/26/17 07:34 09/26/17 07:34 General appearance: Present: cooperative, A&O X 3, pleasant, no acute distress, answers questions appropriately - Head Head exam: Present: atraumatic - Eye Eye exam: Present: EOMI - ENT ENT exam: Present: mucous membranes moist - Respiratory Respiratory exam: Present: CTAB. Absent: accessory muscle use, rales, rhonchi, wheezes, tachypnea - Cardiovascular Cardiovascular exam: Present: RRR, +S1, +S2 - GI/Abdominal GI/Abdominal exam: Present: soft. Absent: distended, firm, guarding, tenderness - Extremities Exam Extremities exam: Present: radial pulses palpable and symmetrical. Absent: calf tenderness, cyanotic, pedal edema - Neurological Exam Neurological exam: Present: alert, oriented X3, no focal deficits. Absent: facial droop, speech deficit - VTE Documentation of Mechanical Device: Intermittent pneumatic compression device
[2017-09-26] MEDS: Furosemide 40 MG/4 ML VIAL IVP SCH (13:42)
[2017-09-26 15:46] VITALS: BP 149/78
== END 2017-09-26 15:01 | disposition home or self-care (01) | DRG 246 ==
LOC: 2ANU 20:27 → EMEROO 20:27 → 2ANU 09-16 01:06 → SUATTDRO 09-16 01:19
PROVIDERS: ADMIT Internal Medicine; ATTEND Internal Medicine

== ENCOUNTER 2018-01-29 05:45 | Observation (INO) ==
[2018-01-29] MEDS ORDERED: Ondansetron 4 MG/2 ML VIAL IVP ONE (06:22)
[2018-01-29] MEDS ORDERED: *HR* OxyCODONE/APAP 5/325 TABLET PO ONE (06:22)
[2018-01-29] MEDS ORDERED: OXYCODONE Oral CONC 10 MG/0.5 ML ORAL.SYG SL ONE (06:31)
--- NOTE | 2018-01-29 07:33 | Emergency Department Note ---
Disposition Clinical Impression: Syncope Qualifiers: Syncope type: unspecified Qualified Code(s): R55 - Syncope and collapse Disposition: Admitted As Inpatient Condition: Fair [facility]: [facility]Primary Care Provider[facility] - Forms: ED Satisfaction Letter Syncope HPI - General Chief Complaint: ED Fall Stated Complaint: Fall Time Seen by Provider: 01/29/18 06:12 Source: patient, family, EMS Mode of arrival: EMS Limitations: no limitations Nursing Notes Reviewed: Yes Vital Signs Reviewed: Yes - History of Present Illness Pt Subjective Complaint: collapsed Onset (ago): hour(s) Number of episodes: 1 Duration: second(s) Description of Event: post-event confusion, other (patient ambulated from his bed to the bathroom. He was in the bathroom with the door shut. Patient's son heard a "thud" and opened the door to find patient on the floor wedged between the toilet and the door. Patient was initially unresponsive, so the son picked him up away from the wall and placed him flat on the floor. Patient then regained consciousness and complained of pain in neck and right shoulder. ) Prodromal Symptoms: other (Patient woke his son up and told him that he was "feeling funny." Son checked patient's blood sugar. It was 98. Son notes that this is "low" for the patient. Patient then said he needed to use the bathroom. Patient was able to walk to the bathroom without assistance. ) Witnessed: no Context: after urination, standing up, other (Dialysis yesterday. Patient went to bed very early last night. After dialysis one day last week patient had to be sent to the ED for eval of low BP and weakness. ) Injuries Sustained Associated with Event: neck (back and right side), face (nose ), RUE, other (left hip) Current Symptoms: other ("A lot of pain, otherwise normal") History: previous syncopal episode, history of CAD, other (ESRD, DM) Treatments prior to arrival: other (C-collar applied) Associated trauma secondary to event: Yes - Related Data Home Medications Medication Instructions Recorded Confirmed Calcium Acetate [Phos-LO] 1,334 mg PO TIDWM 10/04/16 09/16/17 Gabapentin [Neurontin] 300 mg PO BID 10/04/16 09/16/17 Loratadine [Claritin] 10 mg PO DAILY 10/04/16 09/16/17 Pantoprazole Sodium [Protonix] 40 mg PO DAILY 10/04/16 09/16/17 Paroxetine [Paxil] 20 mg PO QAM 10/04/16 09/16/17 Ranitidine HCl [Heartburn Relief] 150 mg PO DAILY 10/04/16 09/16/17 Tamsulosin [Flomax] 0.4 mg PO DAILY 10/04/16 09/16/17 Insulin ASPART [NovoLOG] 35 unit SQ BIDWM 04/25/17 09/16/17 OxyCODONE Immed Rel [Roxicodone 5 10 mg PO Q6HR PRN 04/26/17 09/16/17 MG] Furosemide [Lasix] 60 mg PO BID 05/23/17 09/16/17 Metoprolol [Lopressor] 50 mg PO BID 06/04/17 09/16/17 Previous Rx's Medication Instructions Recorded Aspirin 81 mg PO DAILY #30 tab.chew 10/24/16 Clopidogrel [Plavix] 75 mg PO DAILY #30 tablet 04/28/17 Ferrous Sulfate 325 mg PO DAILY@0800 #30 tab 06/01/17 Docusate [Colace] 100 mg PO DAILY PRN #0 06/06/17 Isosorbide MONOnitrate (24 HR) 30 mg PO DAILY #30 06/06/17 [Imdur] Atorvastatin Calcium [Lipitor] 20 mg PO HS #30 tablet 09/26/17 Folic Acid 2 mg PO DAILY #0 tab 09/26/17 Allergies Allergy/AdvReac Type Severity Reaction Status Date / Time codeine Allergy Unknown Hives Verified 10/04/16 16:06 Methadone Allergy Unknown Rash Verified 10/04/16 16:06 Penicillins [PCN] Allergy Unknown Rash Verified 10/04/16 16:06 promethazine [From Phenergan] Allergy Unknown Hives Verified 10/04/16 16:06 trazodone Allergy Unknown Itching Verified 10/04/16 16:06 All systems ED: reviewed and negative except as stated. Review of Systems: As Per HPI Constitutional: Denies: fever, chills, weakness Eyes: Denies: vision change ENT ED: Denies: throat pain, dental pain (no loose teeth), congestion, dysphagia Cardiovascular: Denies: chest pain, palpitations, dyspnea on exertion, orthopnea , edema, syncope Respiratory: Denies: cough, dyspnea, wheezes, stridor Gastrointestinal: Denies: abdominal pain, nausea, vomiting, diarrhea Musculoskeletal: Reports: as per HPI, neck pain, arthralgia (left hip, right shoulder, right elbow, right wrist). Denies: back pain Neurological: Reports: numbness ("All the time" Hands and feet - symmetric, Hx of peripheral neuropathy). Denies: headache, paresthesias, confusion, vertigo Endocrine: Reports: fatigue Hematological/Lymphatic: Reports: easy bleeding, easy bruising Past Medical History - Past Medical History Attestation: Yes The following information was validated with the patient. Source: patient, old records reviewed, obtained from family Medical history: Reports: coronary artery disease, diabetes, dialysis, GERD, hyperlipidemia, hypertension, renal disease, other (C-spine DDD, Neuropathy) Surgical history: Reports: angioplasty/stent, coronary bypass (CABG) (2v CABG in 1998, redo 3v CABG in 2002), orthopedic, other (Surgery on right knee x4, scope on left knee x1), other (Amputation of left great toe, re-attachment of right hand after accident at work) Psychiatric history: Reports: anxiety, depression - Social History Smoking Status: Never smoker Smokeless Tobacco Status: No Alcohol use: Reports: none Drug use: Reports: none Physical Exam - General Limitations: no limitations General appearance: alert, in no apparent distress - Head Head exam: normocephalic - Expanded Head Exam Head exam physicial: Present: contusion (nasal bridge). Absent: laceration, abrasion, hematoma, raccoon eyes, Do's sign, CSF rhinorrhea, CSF otorrhea 1 - tenderness, contusion 2 - dried blood - Eye Eye exam: Present: normal appearance, PERRL, EOMI. Absent: scleral icterus, conjunctival injection, nystagmus, miosis, mydriasis, periorbital swelling, periorbital tenderness - ENT ENT exam: normal exam, normal oropharynx, mucous membranes moist - Neck Neck exam: Present: normal inspection, trachea midline, tenderness. Absent: full ROM (C-collar in place), meningismus, lymphadenopathy - Expanded Neck Exam Neck exam focused ED: Present: midline tenderness, paraspinal tenderness. Absent: tenderness (other), tracheal deviation, anterior neck swelling, JVD, carotid bruit - Chest Chest inspection: Present: normal inspection, symmetric chest wall rise. Absent : tenderness - Respiratory Respiratory exam: Present: normal lung sounds bilaterally. Absent: respiratory distress, wheezes, stridor, accessory muscle use, prolonged expiratory phase - Cardiovascular Cardiovascular exam: Present: regular rate, normal rhythm, normal heart sounds - Abdominal Exam Abdominal exam: Present: soft, Non-Tender. Absent: distention, guarding, rebound, rigidity, mass - Extremities Exam Extremities exam: Present: normal inspection, tenderness, normal capillary refill. Absent: full ROM, pedal edema, joint swelling - Expanded Lower Extremity Exam Hip/Pelvis exam: Present: pelvis stable. Absent: full ROM (decreased in left second to pain), tenderness, swelling, ecchymosis, deformity, crepitus, dislocation, external rotation, internal rotation, shortening Upper leg exam: Present: normal inspection. Absent: tenderness Knee exam: Present: normal inspection, full ROM. Absent: tenderness Lower leg exam: Present: normal inspection. Absent: tenderness Ankle exam: Present: normal inspection, full ROM. Absent: tenderness Foot/toe exam: Present: full ROM. Absent: normal inspection (Left great toe has been amputated), tenderness, swelling Neurovascular/Tendon exam: Present: normal capillary refill, sensory deficit ( decreased bilateral feet - symmetric). Absent: pulse deficit, motor deficit Gait: not tested/not observed - Back Exam Back exam: Absent: tenderness - Neurological Exam Neurological exam: Present: alert, oriented X3, CN II-XII intact - Psychiatric Psychiatric exam: Present: normal affect, normal mood - Skin Skin exam: Present: warm, dry, intact, normal color Course Course Narrative: Patient presents from home by squad with c-collar on. He was brought in for evaluation of injuries from a fall. He had a syncopal episode after urinating. He was standing in the bathroom at the time and ended up on the floor between the wall and the toilet. His family member helped him into a more comfortable position and called for the squad. Patient has end-stage renal disease and underwent dialysis yesterday. He came home and was feeling fine, but went to bed very early. He got up around 5:00 this morning and told his family member that he was not feeling well. His blood sugar was checked and it was 90. He was given by mouth glucose and then walked to the bathroom. He states that he remembers urinating in the toilet, while standing, and then he woke up on the floor. He complains of pain in the neck, right shoulder, right arm, right wrist and left hip. He has had problems with his neck and right shoulder in the past. He denies vertigo, chest pain, shortness of breath, recent fever, chills, nausea , vomiting, diarrhea or constipation. X-rays and CTs have been ordered along with pain medication. Patient had minimal relief with the pain medication. Additional meds have been ordered. - Reevaluation(s) Reevaluation #1: CT of face, head and c-spine show no acute abnormality per Radiologist. C- collar removed. Patient C/O 7/10 pain "everywhere". Time: 08:08 Reevaluation #2: Orthostatic vitals obtained. Patient is orthostatic. His blood pressure decreased to 89 systolic upon standing. His heart rate did not change. Supine , sitting or standing. Upon standing, he felt lightheaded. Once he returned to the supine position, his blood pressure returned to normal, 120 systolic. - Consultations Consultation #1: Labs are back and are at baseline for the patient. Vitals are stable. Pain is better controlled. Hospitalist has been consulted. He is in agreement with accepting the patient for admission. He requests that orthostatic vitals be obtained. Vital Signs Temperature 97.8 F 01/29/18 05:49 Pulse Rate 60 01/29/18 05:49 Respiratory Rate 18 01/29/18 05:49 Blood Pressure 124/56 01/29/18 05:49 O2 Sat by Pulse Oximetry 100 01/29/18 05:49 Temperature 97.8 F 01/29/18 05:49 Pulse Rate 57 01/29/18 06:40 Respiratory Rate 16 01/29/18 06:40 Blood Pressure 115/57 01/29/18 06:40 O2 Sat by Pulse Oximetry 100 01/29/18 06:40 Oxygen Delivery Oxygen Delivery Room Air Syncope - Medical Records Medical records reviewed: Yes I reviewed the patient's medical records. - Lab Data Lab results reviewed: Yes I reviewed the patient's lab results. Lab results narrative: Laboratory Last Values WBC 5.4 K/mcL (4.3-11.1) 01/29/18 07:59 RBC 3.07 M/mcL (4.19-5.50) L 01/29/18 07:59 Hgb 9.5 g/dL (12.9-16.9) L 01/29/18 07:59 Hct 27.2 % (37.5-50.1) L 01/29/18 07:59 MCV 88.6 fL (83.0-100.0) 01/29/18 07:59 MCH 30.9 pg (28.0-33.3) 01/29/18 07:59 MCHC 34.9 g/dL (31.6-35.5) 01/29/18 07:59 RDW 13.3 % (11.5-14.5) 01/29/18 07:59 Plt Count 130 K/mcL (140-400) L 01/29/18 07:59 MPV 10.1 fL (9.4-12.4) 01/29/18 07:59 Immature Gran % 0.4 % (0-4) 01/29/18 07:59 Seg Neutrophils % 65.8 % 01/29/18 07:59 Lymphocytes % 21.4 % 01/29/18 07:59 Monocytes % 11.6 % 01/29/18 07:59 Eosinophils % 0.6 % 01/29/18 07:59 Basophils % 0.2 % 01/29/18 07:59 Neutrophils # 3.6 K/mcL (1.6-8.9) 01/29/18 07:59 Lymphocytes # 1.2 K/mcL (0.6-4.6) 01/29/18 07:59 Monocytes # 0.6 K/mcL (0.0-1.3) 01/29/18 07:59 Eosinophils # 0.0 K/mcL (0.0-0.6) 01/29/18 07:59 Basophils # 0.0 K/mcL (0.0-0.2) 01/29/18 07:59 PT 11.6 Seconds (9.4-12.1) 01/29/18 07:59 INR 1.1 01/29/18 07:59 Sodium 136 mEq/L (136-145) 01/29/18 07:59 Potassium 4.0 mEq/L (3.5-5.1) 01/29/18 07:59 Chloride 98 mEq/L (98-107) 01/29/18 07:59 Carbon Dioxide 26 mEq/L (23-29) 01/29/18 07:59 BUN 31 mg/dL (8-23) H 01/29/18 07:59 Creatinine 5.69 mg/dL (0.70-1.30) H 01/29/18 07:59 Est GFR ( Amer) 12 (> 60) L 01/29/18 07:59 Est GFR (Non-Af Amer) 10 (> 60) L 01/29/18 07:59 BUN/Creatinine Ratio 5 (6-26) L 01/29/18 07:59 Glucose 113 mg/dL (70-105) H 01/29/18 07:59 POC Glucose 127 (58-89) H 01/29/18 05:59 Calculated Osmolality 289 (280-300) 01/29/18 07:59 Calcium 9.7 mg/dL (8.6-10.3) 01/29/18 07:59 Phosphorus 4.0 mg/dL (2.7-4.5) 01/29/18 07:59 Magnesium 2.3 mg/dL (1.6-2.6) 01/29/18 07:59 Troponin I < 0.03 ng/mL (< 0.04) 01/29/18 07:59 Lab Results 01/29/18 Range/Units 05:59 POC Glucose 127 H (58-89) - Radiology Data Radiology results reviewed: Yes I reviewed the patient's radiology results. Cervical Spine CT 01/29/18 06:22 IMPRESSION: No acute abnormality identified in the cervical spine. Multilevel degenerative changes. D/ / Reese Trujillo MD / Reese Trujillo MD Interpreting Provider: Reese Trujillo MD Elbow X-Ray 01/29/18 06:22 IMPRESSION: Old fracture seen through the distal right radius which is well healed. No acute abnormality seen within the right shoulder, right humerus, right elbow or right wrist. Normal x-ray left hip. D/ / 01/29/2018 08:46:42 Jair Kennedy MD / oliverio Interpreting Provider: Jair Kennedy MD Face CT 01/29/18 06:22 IMPRESSION: No acute intracranial abnormality. No acute traumatic injury of the facial bones. D/ / Quang Ward MD / Quang Ward MD Interpreting Provider: Quang Ward MD Head CT 01/29/18 06:22 IMPRESSION: No acute intracranial abnormality. No acute traumatic injury of the facial bones. D/ / Quang Ward MD / Quang Ward MD Interpreting Provider: Quang Ward MD Hip X-Ray 01/29/18 06:22 IMPRESSION: Old fracture seen through the distal right radius which is well healed. No acute abnormality seen within the right shoulder, right humerus, right elbow or right wrist. Normal x-ray left hip. D/ / 01/29/2018 08:46:42 Jair Kennedy MD / oliverio Interpreting Provider: Jair Kennedy MD Humerus X-Ray 01/29/18 06:22 IMPRESSION: Old fracture seen through the distal right radius which is well healed. No acute abnormality seen within the right shoulder, right humerus, right elbow or right wrist. Normal x-ray left hip. D/ / 01/29/2018 08:46:42 Jair Kennedy MD / oliverio Interpreting Provider: Jair Kennedy MD Shoulder X-Ray 01/29/18 06:22 IMPRESSION: Old fracture seen through the distal right radius which is well healed. No acute abnormality seen within the right shoulder, right humerus, right elbow or right wrist. Normal x-ray left hip. D/ / 01/29/2018 08:46:42 Jair Kennedy MD / oliverio Interpreting Provider: Jair Kennedy MD Wrist X-Ray 01/29/18 06:22
[2018-01-29 08:16] LABS: Basophils % 0.2 %; Eosinophils % 0.6 %; Hematocrit 27.2 % (37.5-50.1); Hemoglobin 9.5 g/dL (12.9-16.9); Immature Granulocytes % 0.4 % (0-4); Lymphocytes % 21.4 %; Mean Corpuscular HGB Conc 34.9 g/dL (31.6-35.5); Mean Corpuscular Hemoglobin 30.9 pg (28.0-33.3); Mean Corpuscular Volume 88.6 fL (83.0-100.0); Mean Platelet Volume 10.1 fL (9.4-12.4); Monocytes % 11.6 %; Platelet Count 130 K/mcL (140-400); Red Blood Count 3.07 M/mcL (4.19-5.50); Red Cell Distribution Width 13.3 % (11.5-14.5); Segmented Neutrophils % 65.8 %
[2018-01-29 08:17] LABS: Lymphocytes # 1.2 K/mcL (0.6-4.6); Monocytes # 0.6 K/mcL (0.0-1.3); Neutrophils # 3.6 K/mcL (1.6-8.9)
[2018-01-29 08:23] LABS: BUN/Creatinine Ratio 5 (6-26); Blood Urea Nitrogen 31 mg/dL (8-23); Calcium 9.7 mg/dL (8.6-10.3); Carbon Dioxide 26 mEq/L (23-29); Chloride 98 mEq/L (98-107); Glucose 113 mg/dL (70-105); Magnesium 2.3 mg/dL (1.6-2.6); Osmolality,Calculated 289 (280-300); Sodium 136 mEq/L (136-145); eGFR For African Americans 12 (> 60); eGFR For Non-African Americans 10 (> 60)
[2018-01-29] MEDS ORDERED: *HR* FentaNYL (PF) 100 MCG/2 ML VIAL IVP ONE (08:29)
[2018-01-29 08:37] LABS: INR 1.1; Prothrombin Time 11.6 Seconds (9.4-12.1)
[2018-01-29 08:41] LABS: Troponin I < 0.03 ng/mL (< 0.04)
[2018-01-29] MEDS ORDERED: Naloxone 0.4 MG/ML INJ IVP PRN (10:46)
--- NOTE | 2018-01-29 11:17 | Internal Med History&Physical ---
Date of Encounter: 01/29/18 Time of Encounter: 11:12 Assessment and Plan (1) Syncope Current visit: Yes Status: Acute Likely from hypotension. Orthostatic hypotension positive with HR maintaining in 60s with change despite change in positioning. Likely from beta sam. Will hold hypertensive medications and observe since this is recurring. Will give 250 ml bolus of IV fluids as well. Qualifiers: Syncope type: unspecified Qualified Code(s): R55 - Syncope and collapse (2) Anemia Current visit: No Status: Acute At baseline Qualifiers: Anemia type: due to chronic kidney disease Chronic kidney disease stage: on chronic dialysis Qualified Code(s): N18.6 - End stage renal disease; D63.1 - Anemia in chronic kidney disease; D63.1 - Anemia in chronic kidney disease; Z99.2 - Dependence on renal dialysis; Z99.2 - Dependence on renal dialysis; Z99.2 - Dependence on renal dialysis; Z99.2 - Dependence on renal dialysis (3) CAD (coronary artery disease), [place] coronary artery Current visit: No Status: Acute Continue ASA/Plavix Qualifiers: [place] vs. 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 Chronic kidney disease stage: on chronic dialysis Qualified Code(s): E11.22 - Type 2 diabetes mellitus with diabetic chronic kidney disease; N18.6 - End stage renal disease; N18.6 - End stage renal disease; N18.6 - End stage renal disease; N18.6 - End stage renal disease; Z99.2 - Dependence on renal dialysis; Z99.2 - Dependence on renal dialysis; Z99.2 - Dependence on renal dialysis; Z99.2 - Dependence on renal dialysis (7) Diastolic CHF, chronic Current visit: No Status: Chronic not in acute exacerbation (8) HLD (hyperlipidemia) Current visit: No Status: Chronic Qualifiers: Hyperlipidemia type: unspecified Qualified Code(s): E78.5 - Hyperlipidemia , unspecified (9) Hypertension Current visit: No Status: Chronic Because of hypotensive/syncopal episodes, will hold off medications for now and observe. Qualifiers: Hypertension type: essential hypertension Qualified Code(s): I10 - Essential (primary) hypertension (10) Fall Current visit: Yes Status: Acute Today event likely orthostatic hypotension. However this did happen in the past as well, likely hypotension. We will have PT/OT evaluate patient prior to discharge. - PT.OT Qualifiers: Encounter type: initial encounter Qualified Code(s): W19.XXXA - Unspecified fall, initial encounter (11) DVT prophylaxis Current visit: No Status: Acute Internal Medicine - H&P: HPI History of present illness: Mr. Velarde is a 62 year old male with history of CAD s/p CABG, DM, ESRD on dialysis, GERD, hypertension, diastolic heart failure presented for syncope. Patient was going from bed to bathroom and was urinating and son heard a fall. Patient had pain in neck and shoulder. At home his son checked patient's glucose and was 98. Patient has not taken his morning medications. He denies any symptoms prior to LOC. He awoke by his nephew and denied any loss of bowel or bladder function. He received dialysis yesterday per his normal schedule and states he gets dizzy and hypotensive regularly from this and occasionally needs to have IV fluids given. He was in ED last week for hypotension and fall as well. He has had a recent echocardiogram in 08/2017 that showed EF 55% with severe LV diastolic dysfunction. [place] in the ED showed Normal BMP outside of creatinine 5.69. Hemoglobin is 9.5 and INR 1.1. Troponin was negative on arrival. A spine, elbow, hip and head CT imaging were all negative for fracture. He was given Fentanyl and Percocet in ED for pain. He had orthostatic vitals that were positive from change in blood pressure. He denies any prior episode of syncope. Past Med Surg Social Fam HX - Past Medical History Medical history: coronary artery disease, diabetes, dialysis, GERD, hyperlipidemia, hypertension, renal disease, other (C-spine DDD, Neuropathy) Psychiatric history: anxiety, depression - Past Surgical History Surgical History: angioplasty/stent, coronary bypass (CABG) (2v CABG in 1998, redo 3v CABG in 2002), orthopedic, other (Surgery on right knee x4, scope on left knee x1), other (Amputation of left great toe, re-attachment of right hand after accident at work) - Social History Smoking Status: Never smoker Smokeless Tobacco Status: No Alcohol use: none Drug use: none - Family History Father Adopted: No Family Member Ethnicity: Non- Living Status: Still Living Hx Family Cardiac Disorders: Yes (Coronary artery disease?) Hx Family Respiratory Disorders: No Hx Family Cancer: Yes Hx Family GI Disorders: No Hx Family Endocrine Disorder: Yes (brothers, sister) Hx Family Neuromuscular Disorders: No Hx Family Neurologic Disorders: No Hx Family HEENT Disorders: No Hx Family Autoimmune Disorders: No Brother Family Member Ethnicity: Non- Living Status: Still Living Hx Family Cardiac Disorders: Yes ([place]) Sister Family Member Ethnicity: Non- Living Status: Still Living Hx Family Endocrine Disorder: Yes (DM) Mother Adopted: No Family Member Ethnicity: Non- Living Status: Still Living Hx Family Cardiac Disorders: Yes ([place], Pacemaker) Hx Family Respiratory Disorders: Yes (COPD) Hx Family Cancer: Yes Hx Family GI Disorders: No Hx Family Endocrine Disorder: Yes (DM) Hx Family Neuromuscular Disorders: No Hx Family Neurologic Disorders: No Hx Family HEENT Disorders: No Hx Family Autoimmune Disorders: No Internal Medicine - H&P: Meds Calcium Acetate [Phos-LO] 1,334 mg PO TIDWM 10/04/16 [History] Gabapentin [Neurontin] 300 mg PO BID 10/04/16 [History] Loratadine [Claritin] 10 mg PO DAILY 10/04/16 [History] Pantoprazole Sodium [Protonix] 40 mg PO DAILY 10/04/16 [History] Paroxetine [Paxil] 20 mg PO QAM 10/04/16 [History] Ranitidine HCl [Heartburn Relief] 150 mg PO DAILY 10/04/16 [History] Tamsulosin [Flomax] 0.4 mg PO DAILY 10/04/16 [History] Aspirin 81 mg PO DAILY #30 tab.chew 10/24/16 [Rx] Insulin ASPART [NovoLOG] 35 unit SQ BIDWM 04/25/17 [History] OxyCODONE Immed Rel [Roxicodone 5 MG] 10 mg PO Q6HR PRN 04/26/17 [History] Clopidogrel [Plavix] 75 mg PO DAILY #30 tablet 04/28/17 [Rx] Furosemide [Lasix] 60 mg PO BID 05/23/17 [History] Metoprolol [Lopressor] 50 mg PO BID 06/04/17 [History] Isosorbide MONOnitrate (24 HR) [Imdur] 30 mg PO DAILY #30 06/06/17 [Rx] Atorvastatin Calcium [Lipitor] 20 mg PO HS #30 tablet 09/26/17 [Rx] Insulin Glargine,Hum.rec.anlog [Lantus Solostar] 35 unit SQ DAILY 01/29/18 [ History] Renal Vitamin [Renal Caps Softgel] 1 mg PO DAILY 01/29/18 [History] 3 Allergy/AdvReac Type Severity Reaction Status Date / Time codeine Allergy Unknown Hives Verified 10/04/16 16:06 Methadone Allergy Unknown Rash Verified 10/04/16 16:06 Penicillins [PCN] Allergy Unknown Rash Verified 10/04/16 16:06 promethazine [From Phenergan] Allergy Unknown Hives Verified 10/04/16 16:06 trazodone Allergy Unknown Itching Verified 10/04/16 16:06 All Systems PM: A 10-system review of systems was performed and is negative for pertinent findings except as documented above in the HPI. Review of systems: As per HPI - Constitutional Vitals: Temp Pulse Resp BP Pulse Ox 97.8 F 63 18 125/70 100 01/29/18 05:49 01/29/18 10:57 01/29/18 10:57 01/29/18 10:57 01/29/18 10:57 - Head Head exam: Present: atraumatic, normocephalic - Eye Eye exam: Present: PERRL, conjuntiva pink, sclera anicteric Pupils: Present: PERRL - Neck Neck exam general surgery: Present: supple, trachea midline. Absent: lymphadenopathy - Respiratory Respiratory exam: Present: CTAB. Absent: accessory muscle use, rales, rhonchi, wheezes - Cardiovascular Cardiovascular exam: Present: RRR, +S1, +S2. Absent: diastolic murmur, gallop, rubs, systolic murmur - GI/Abdominal GI/Abdominal exam: Present: normal bowel sounds, soft, no peritoneal signs. Absent: distended, tenderness - Extremities Exam Extremities exam: Present: warm, radial pulses palpable and symmetrical. Absent : calf tenderness, cyanotic, pedal edema - Neurological Exam Neurological exam: Present: CN II-XII intact, oriented X3, no focal deficits. Absent: pronater drift, facial droop, speech deficit - Skin Skin exam: Present: dry, intact Internal Med - H&P Results - Labs CBC & Chem 7: 01/29/18 07:59 01/29/18 07:59
[2018-01-29] MEDS: Calcium Acetate 667 MG CAPSULE PO SCH ×2 (12:05→17:27)
[2018-01-29] MEDS ORDERED: *HR* FentaNYL (PF) 100 MCG/2 ML VIAL IVP PRN (13:41)
[2018-01-29] MEDS ORDERED: 0.9 % Sodium Chloride 250 ML IVC ONE (13:45)
[2018-01-29] MEDS: *HR* OxyCODONE Immed Rel 5 MG TABLET PO PRN ×2 (15:16→21:18)
[2018-01-29] MEDS: Insulin LISPRO 300 UNITS/3 ML VIAL SQ SCH ×2 (17:27→20:36)
[2018-01-29] MEDS: Gabapentin 300 MG CAPSULE PO SCH (20:41)
[2018-01-30 04:02] LABS: Basophils % 0.2 %; Eosinophils % 0.7 %; Hematocrit 25.5 % (37.5-50.1); Hemoglobin 9.1 g/dL (12.9-16.9); Immature Granulocytes % 0.5 % (0-4); Lymphocytes # 1.2 K/mcL (0.6-4.6); Lymphocytes % 29.8 %; Mean Corpuscular HGB Conc 35.7 g/dL (31.6-35.5); Mean Corpuscular Hemoglobin 31.6 pg (28.0-33.3); Mean Corpuscular Volume 88.5 fL (83.0-100.0); Monocytes # 0.4 K/mcL (0.0-1.3); Monocytes % 10.8 %; Neutrophils # 2.4 K/mcL (1.6-8.9); Platelet Count 103 K/mcL (140-400); Red Blood Count 2.88 M/mcL (4.19-5.50); Red Cell Distribution Width 13.4 % (11.5-14.5)
[2018-01-30 04:16] LABS: Calcium 9.3 mg/dL (8.6-10.3); Potassium 4.4 mEq/L (3.5-5.1)
[2018-01-30] MEDS: *HR* OxyCODONE Immed Rel 5 MG TABLET PO PRN ×2 (05:43→14:20)
[2018-01-30] MEDS: Gabapentin 300 MG CAPSULE PO SCH (07:52)
[2018-01-30] MEDS: Renal Vitamin 1 MG CAPSULE PO SCH (07:52)
[2018-01-30] MEDS: Loratadine 10 MG TABLET PO SCH (07:53)
[2018-01-30] MEDS: Insulin LISPRO 300 UNITS/3 ML VIAL SQ SCH ×4 (07:53→22:32)
[2018-01-30] MEDS: Calcium Acetate 667 MG CAPSULE PO SCH ×3 (07:53→17:10)
[2018-01-30] MEDS: Aspirin 81 MG TAB.CHEW PO SCH (07:53)
[2018-01-30] MEDS ORDERED: Furosemide 20 MG TABLET PO SCH (09:00)
[2018-01-30] MEDS ORDERED: Famotidine 20 MG TABLET PO SCH (09:00)
[2018-01-30 09:08] LABS: Hepatitis B Surface Antibody 4.86 mIU/mL; Hepatitis B Surface Antigen Nonreactive (Nonreactive)
--- NOTE | 2018-01-30 11:01 | Nephrology Consult Note ---
Date of Encounter: 01/30/18 Time of Encounter: 09:40 Assessment and Plan (1) ESRD (end stage renal disease) on dialysis Current Visit: Yes Status: Acute ESRD-HD today, keeping MWF schedule. Orders given, no fluid removal. Will stop Lasix. Most likely a DW issue versus autonomic neuropathy related to diabetes. History of Present Illness - Reason for Consult end stage renal disease - History of Present Illness Mr. Velarde is a 62 year old male with ESRD who dialyzes at [facility] on MWF, last HD on Friday. Other PMH-coronary artery disease, diabetes, dialysis, GERD, hyperlipidemia, hypertension, renal disease, other (C-spine DDD, Neuropathy) angioplasty/stent, coronary bypass (CABG) (2v CABG in 1998, redo 3v CABG in 2002), orthopedic, other (Surgery on right knee x4, scope on left knee x1), other (Amputation of left great toe, re-attachment of right hand after accident at work), anxiety, depression. Mr. Velarde presented to ER yesterday following a syncopal episode at home with LOC. Son checked blood sugar, it was 98. Patient had been sent to ER last week following HD for low BP and weakness. He denies increase of appetite leading to weight gain. He states he measures fluid intake, however coming to HD 4.5-5.5 kg above DW. CXR negative for fluid overload, no edema on exam. States taking Lasix at home but is only voiding small amounts, less gus one cup daily. Past Med Surg Social Fam HX - Past Medical History Medical history: coronary artery disease, diabetes, dialysis, GERD, hyperlipidemia, hypertension, renal disease, other (C-spine DDD, Neuropathy) Psychiatric history: anxiety, depression - Past Surgical History Surgical History: angioplasty/stent, coronary bypass (CABG) (2v CABG in 1998, redo 3v CABG in 2002), orthopedic, other (Surgery on right knee x4, scope on left knee x1), other (Amputation of left great toe, re-attachment of right hand after accident at work) - Social History Smoking Status: Never smoker Smokeless Tobacco Status: No Alcohol use: none Drug use: none - Family History Father Adopted: No Family Member Ethnicity: Non- Living Status: Still Living Hx Family Cardiac Disorders: Yes (Coronary artery disease?) Hx Family Respiratory Disorders: No Hx Family Cancer: Yes Hx Family GI Disorders: No Hx Family Endocrine Disorder: Yes (brothers, sister) Hx Family Neuromuscular Disorders: No Hx Family Neurologic Disorders: No Hx Family HEENT Disorders: No Hx Family Autoimmune Disorders: No Brother Family Member Ethnicity: Non- Living Status: Still Living Hx Family Cardiac Disorders: Yes (ME) Sister Family Member Ethnicity: Non- Living Status: Still Living Hx Family Endocrine Disorder: Yes (DM) Mother Adopted: No Family Member Ethnicity: Non- Living Status: Still Living Hx Family Cardiac Disorders: Yes (ME, Pacemaker) Hx Family Respiratory Disorders: Yes (COPD) Hx Family Cancer: Yes Hx Family GI Disorders: No Hx Family Endocrine Disorder: Yes (DM) Hx Family Neuromuscular Disorders: No Hx Family Neurologic Disorders: No Hx Family HEENT Disorders: No Hx Family Autoimmune Disorders: No Medications and Allergies Calcium Acetate [Phos-LO] 1,334 mg PO TIDWM 10/04/16 [History] Gabapentin [Neurontin] 300 mg PO BID 10/04/16 [History] Loratadine [Claritin] 10 mg PO DAILY 10/04/16 [History] Pantoprazole Sodium [Protonix] 40 mg PO DAILY 10/04/16 [History] Paroxetine [Paxil] 20 mg PO QAM 10/04/16 [History] Ranitidine HCl [Heartburn Relief] 150 mg PO DAILY 10/04/16 [History] Tamsulosin [Flomax] 0.4 mg PO DAILY 10/04/16 [History] Aspirin 81 mg PO DAILY #30 tab.chew 10/24/16 [Rx] Insulin ASPART [NovoLOG] 35 unit SQ BIDWM 04/25/17 [History] OxyCODONE Immed Rel [Roxicodone 5 MG] 10 mg PO Q6HR PRN 04/26/17 [History] Clopidogrel [Plavix] 75 mg PO DAILY #30 tablet 04/28/17 [Rx] Furosemide [Lasix] 60 mg PO BID 05/23/17 [History] Metoprolol [Lopressor] 50 mg PO BID 06/04/17 [History] Isosorbide MONOnitrate (24 HR) [Imdur] 30 mg PO DAILY #30 06/06/17 [Rx] Atorvastatin Calcium [Lipitor] 20 mg PO HS #30 tablet 09/26/17 [Rx] Insulin Glargine,Hum.rec.anlog [Lantus Solostar] 35 unit SQ DAILY 01/29/18 [ History] Renal Vitamin [Renal Caps Softgel] 1 mg PO DAILY 01/29/18 [History] 3 Allergy/AdvReac Type Severity Reaction Status Date / Time codeine Allergy Unknown Hives Verified 10/04/16 16:06 Methadone Allergy Unknown Rash Verified 10/04/16 16:06 Penicillins [PCN] Allergy Unknown Rash Verified 10/04/16 16:06 promethazine [From Phenergan] Allergy Unknown Hives Verified 10/04/16 16:06 trazodone Allergy Unknown Itching Verified 10/04/16 16:06 Exam - Vital Signs Vital signs: Initial Vital Signs Temp Pulse Resp BP Pulse Ox 97.8 F 60 18 124/56 100 01/29/18 05:49 01/29/18 05:49 01/29/18 05:49 01/29/18 05:49 01/29/18 05:49 Vital Signs - Last 8 Hours Temp Pulse Resp BP Pulse Ox 01/30/18 10:33 98.1 F 72 16 133/67 98 01/30/18 07:12 98.0 F 71 16 130/68 96 01/30/18 04:08 98.2 F 69 14 95/50 97 Intake and Output 01/29/18 01/30/18 01/30/18 23:59 07:59 15:59 Intake Total 60 / 60 350 / 350 240 / 240 Output Total 0 / 0 Balance 60 / 60 350 / 350 240 / 240 Intake: Oral 60 / 60 350 / 350 240 / 240 Output: Urine 0 / 0 Other: Meal HS SNACK. PE[employer] Breakfast Percent of Meal Consumed 100% # Voids 1 Weight 95.935 kg Blood Glucose* 192 253 Patient Weight 01/30/18 23:59 Weight 95.935 kg - General Appearance General appearance: well-developed, well-nourished, appears started age EENT: mucous membranes moist Neck: no JVD Respiratory: clear Cardiology: no edema, regular rate, regular rhythm - Dialysis Access Dialysis Vascular Access: Arteriovenous Fistula Gastrointestinal: normoactive bowel sounds, no tenderness Integumentary: warm and dry Neurologic: alert and oriented x3 Results - Lab Results 01/30/18 03:46 01/30/18 03:46 Most recent lab results Calcium 9.3 mg/dL (8.6-10.3) 01/30/18 03:46 Phosphorus 4.0 mg/dL (2.7-4.5) 01/29/18 07:59 Magnesium 2.3 mg/dL (1.6-2.6) 01/29/18 07:59 Consult Discharge Plan - Plan [facility]errals: [facility] [Primary Care Provider] -
[2018-01-30] MEDS: Gabapentin 100 MG CAPSULE PO SCH ×3 (11:53→22:33)
[2018-01-30] MEDS: Insulin DETEMIR 100 UNIT/ML X5UNITS SQ SCH (12:15)
[2018-01-30] MEDS ORDERED: 0.9 % Sodium Chloride 250 ML IVC PRN (12:54)
[2018-01-30] MEDS ORDERED: 0.9 % Sodium Chloride 1,000 ML PRIME SCH (13:00)
--- NOTE | 2018-01-30 14:42 | Internal Med Progress Note ---
Date of Encounter: 01/30/18 Time of Encounter: 11:10 - Assessment and plan (1) Syncope Current Visit: Yes Status: Acute Assessment and plan: Mostly due to ortho static reviewed his ortho stat vitals..very significant drop of BP noticed Will d/c his Lasix and hold all BP meds If nephro suggests will give gentle hydration strict fall precautions ordered 2 D Echo and Caroitd doppler for complete work up Qualifiers: Syncope type: unspecified Qualified Code(s): R55 - Syncope and collapse (2) Orthostatic hypotension Current Visit: Yes Status: Acute (3) ESRD (end stage renal disease) on dialysis Current Visit: Yes Status: Acute Assessment and plan: HD M/W/F As Nephr recommendations may need to keep more volume since he does have severe ortho static hypotension (4) Left hip pain Current Visit: Yes Status: Acute Assessment and plan: ordered CT of Hip - No acute / occult fx noticed DJD noticed PT / OT eval (5) CAD (coronary artery disease), [place] coronary artery Current Visit: No Status: Acute Assessment and plan: resumed home meds Qualifiers: [place] vs. transplanted heart: [place] heart Associated angina: without angina Qualified Code(s): I25.10 - Atherosclerotic heart disease of [place] coronary artery without angina pectoris (6) GERD (gastroesophageal reflux disease) Current Visit: No Status: Acute Assessment and plan: on PPI Qualifiers: Esophagitis presence: without esophagitis Qualified Code(s): K21.9 - Gastro -esophageal reflux disease without esophagitis (7) Physical deconditioning Current Visit: No Status: Acute Assessment and plan: PT / OT eval (8) Thrombocytopenia Current Visit: No Status: Acute Assessment and plan: chronic and stable (9) Anemia in CKD (chronic kidney disease) Current Visit: No Status: Chronic Assessment and plan: stable and at baseline Qualifiers: Chronic kidney disease stage: on chronic dialysis Qualified Code(s): N18.6 - End stage renal disease; D63.1 - Anemia in chronic kidney disease; D63.1 - Anemia in chronic kidney disease; Z99.2 - Dependence on renal dialysis; Z99.2 - Dependence on renal dialysis; Z99.2 - Dependence on renal dialysis; Z99.2 - Dependence on renal dialysis (10) Diastolic CHF, chronic Current Visit: No Status: Chronic (11) HLD (hyperlipidemia) Current Visit: No Status: Chronic Qualifiers: Hyperlipidemia type: unspecified Qualified Code(s): E78.5 - Hyperlipidemia , unspecified (12) Type 2 diabetes mellitus with diabetic chronic kidney disease Current Visit: No Status: Chronic Assessment and plan: on ISS Qualifiers: 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 Velarde is a 62 year old male with history of CAD s/p CABG, DM, ESRD on dialysis, GERD, hypertension, diastolic heart failure presented for syncope. Patient was going from bed to bathroom and was urinating and nephew heard a fall. Patient had pain in neck, shoulder and hip. He did mention of loss of conciousness briefly, he does not remember the fall. Now pt is alert, awake and O x 3. Denied any CP / SOB. However he does c/o moderate Left hip pain. - Constitutional Vitals: Temp Pulse Resp BP Pulse Ox 98.1 F 74 16 148/66 98 01/30/18 10:33 01/30/18 13:30 01/30/18 10:33 01/30/18 13:30 01/30/18 10:33 General appearance: Present: A&O X 3, no acute distress, answers questions appropriately - Head Head exam: Present: atraumatic, normal inspection - Neck Neck exam general surgery: Present: supple - Respiratory Respiratory exam: Present: decreased breath sounds. Absent: rales, respiratory distress, rhonchi, wheezes - Cardiovascular Cardiovascular exam: Present: RRR, +S1, +S2. Absent: tachycardia - GI/Abdominal GI/Abdominal exam: Present: normal bowel sounds, soft. Absent: rebound, rigid, tenderness - Extremities Exam Extremities exam: Absent: calf tenderness, pedal edema, tenderness Additional comments: moderate discomfort in Left hip.. no swelling noticed.. no bruises noticed. - Back Exam Back exam: Absent: CVA tenderness (L), CVA tenderness (R) - Neurological Exam Neurological exam: Present: alert, oriented X3 - Psychiatric Psychiatric exam: Present: normal affect, normal mood - Skin Skin exam: Absent: rash Internal Medicine: Result - Labs CBC & Chem 7: 01/30/18 03:46 01/30/18 03:46 Labs: Short CBC 01/30/18 Range/Units 03:46 WBC 4.1 L (4.3-11.1) K/mcL Hgb 9.1 L (12.9-16.9) g/dL Hct 25.5 L (37.5-50.1) % Plt Count 103 L (140-400) K/mcL Neutrophils # 2.4 (1.6-8.9) K/mcL BMP 01/30/18 03:46 Sodium 136 Potassium 4.4 Chloride 97 L Carbon Dioxide 27 BUN 40 H Creatinine 7.06 H Glucose 227 H Calcium 9.3 - ABG Interpretation ABG results: PT/INR, D-dimer PT 11.6 Seconds (9.4-12.1) 01/29/18 07:59 - Impressions Impressions Hip CT 01/30/18 12:30 IMPRESSION: 1. No acute osseous abnormality identified. 2. [id number] osteoarthritis of the bilateral hips. D/ / Raciel Ku MD / Raciel Ku MD Interpreting Provider: Raciel Ku MD Consult Discharge Plan - Plan Referrals: [facility] [Primary Care Provider] -
[2018-01-30] MEDS ORDERED: 0.9 % Sodium Chloride 1,000 ML ONE (15:41)
[2018-01-31] MEDS: *HR* OxyCODONE Immed Rel 5 MG TABLET PO PRN ×2 (00:12→09:27)
--- NOTE | 2018-01-31 09:16 | Nephrology Progress Note ---
Date of Encounter: 01/31/18 Time of Encounter: 08:50 - Assessment and Plan (1) ESRD (end stage renal disease) on dialysis Current Visit: Yes Status: Acute ESRD-No HD today, keeping MWF schedule. Most likely a DW issue versus autonomic neuropathy related to diabetes. Subjective Interval history: Laying quietly. States generalized discomfort related to hiss fall, "feels bruised." Objective - Vital Signs Vital signs: Vital Signs Temp Pulse Pulse Pulse Pulse Resp BP 01/31/18 07:10 98.6 F 78 18 126/63 01/31/18 04:34 98.2 F 18 131/74 01/31/18 01:09 98.1 F 82 16 130/71 01/30/18 20:07 98.3 F 76 16 129/61 01/30/18 18:39 97.2 F L 18 135/62 01/30/18 18:15 138/70 01/30/18 18:00 126/68 01/30/18 17:45 138/70 01/30/18 17:30 131/74 01/30/18 17:15 140/68 01/30/18 17:00 116/62 01/30/18 16:45 129/62 01/30/18 16:30 131/65 01/30/18 16:15 127/66 01/30/18 16:00 130/62 01/30/18 15:45 131/66 01/30/18 15:30 136/69 01/30/18 15:15 97.3 F L 18 141/69 01/30/18 13:30 74 73 76 01/30/18 10:33 98.1 F 72 16 133/67 BP BP BP Pulse Ox 01/31/18 07:10 98 01/31/18 04:34 96 01/31/18 01:09 99 01/30/18 20:07 98 01/30/18 18:39 01/30/18 18:15 01/30/18 18:00 01/30/18 17:45 01/30/18 17:30 01/30/18 17:15 01/30/18 17:00 01/30/18 16:45 01/30/18 16:30 01/30/18 16:15 01/30/18 16:00 01/30/18 15:45 01/30/18 15:30 03/16/18 15:15 01/30/18 13:30 148/66 124/63 96/57 01/30/18 10:33 98 Intake and Output 01/30/18 01/31/18 01/31/18 23:59 07:59 15:59 Intake Total 280 / 280 120 / 120 Output Total 700 / 700 Balance -420 / -420 120 / 120 Intake: Oral 280 / 280 120 / 120 Output: Urine 100 / 100 Total Dialysis (HD) Output 600 / 600 Other: Meal Dinner Breakfast Percent of Meal Consumed 0% 100% Weight 95.799 kg Blood Glucose* 158 280 Hemodialysis Net Fluid Removed 0 (mL) Patient Weight 01/31/18 23:59 Weight 95.799 kg - General Appearance General appearance: Present: well-developed, well-nourished, appears started age EENT: Present: mucous membranes moist Neck: Present: no JVD Respiratory: Present: clear Cardiology: Present: no edema, regular rate, regular rhythm Gastrointestinal: Present: normoactive bowel sounds, no tenderness Integumentary: Present: warm and dry Neurologic: Present: alert and oriented x3 - Lab 01/30/18 03:46 01/30/18 03:46 Most recent lab results Calcium 9.3 mg/dL (8.6-10.3) 01/30/18 03:46 Phosphorus 4.0 mg/dL (2.7-4.5) 01/29/18 07:59 Magnesium 2.3 mg/dL (1.6-2.6) 01/29/18 07:59 Consult Discharge Plan - Plan Referrals: [facility] [Primary Care Provider] -
[2018-01-31] MEDS: Insulin LISPRO 300 UNITS/3 ML VIAL SQ SCH ×2 (09:17→12:42)
[2018-01-31] MEDS: Renal Vitamin 1 MG CAPSULE PO SCH (09:18)
[2018-01-31] MEDS: Calcium Acetate 667 MG CAPSULE PO SCH ×2 (09:18→12:42)
[2018-01-31] MEDS: Aspirin 81 MG TAB.CHEW PO SCH (09:18)
[2018-01-31] MEDS: Loratadine 10 MG TABLET PO SCH (09:18)
[2018-01-31] MEDS: Insulin DETEMIR 100 UNIT/ML X5UNITS SQ SCH (09:18)
[2018-01-31] MEDS: Gabapentin 100 MG CAPSULE PO SCH (09:18)
[2018-01-31] MEDS ORDERED: Sennosides/Docusate Sodium TABLET PO SCH (10:30)
[2018-01-31 10:32] VITALS: BP 144/74
--- NOTE | 2018-01-31 11:31 | Discharge Summary ---
- NOTES TO OUTPATIENT PROVIDER Notes to Outpatient Provider: f/u with Ronnell Escamilla / Dr. Castaneda on Friday at HD clinic. Stop taking all BP meds including Lasix, Metoprolol and Imdur. If your BP is above 140 then you can start taking Metoprolol. Your geoscientist will discuss with you about medications again on Friday. please use front wheel walker when ambulate since you are high risk for falls Date of Encounter: 01/31/18 Time of Encounter: 11:29 - Discharge Diagnosis (1) Syncope Priority: Primary Status: Acute Qualifiers: Syncope type: unspecified Qualified Code(s): R55 - Syncope and collapse (2) Orthostatic hypotension Priority: Primary Status: Acute (3) ESRD (end stage renal disease) on dialysis Priority: Secondary Status: Acute (4) Left hip pain Priority: Secondary Status: Acute (5) CAD (coronary artery disease), [place] coronary artery Priority: Secondary Status: Acute Qualifiers: [place] vs. transplanted heart: [place] heart Associated angina: without angina Qualified Code(s): I25.10 - Atherosclerotic heart disease of [place] coronary artery without angina pectoris (6) GERD (gastroesophageal reflux disease) Priority: Secondary Status: Acute Qualifiers: Esophagitis presence: without esophagitis Qualified Code(s): K21.9 - Gastro -esophageal reflux disease without esophagitis (7) Physical deconditioning Priority: Secondary Status: Acute (8) Thrombocytopenia Priority: Secondary Status: Acute (9) Anemia in CKD (chronic kidney disease) Priority: Secondary Status: Chronic Qualifiers: Chronic kidney disease stage: on chronic dialysis Qualified Code(s): N18.6 - End stage renal disease; D63.1 - Anemia in chronic kidney disease; D63.1 - Anemia in chronic kidney disease; Z99.2 - Dependence on renal dialysis; Z99.2 - Dependence on renal dialysis; Z99.2 - Dependence on renal dialysis; Z99.2 - Dependence on renal dialysis (10) Diastolic CHF, chronic Priority: Secondary Status: Chronic (11) HLD (hyperlipidemia) Priority: Secondary Status: Chronic Qualifiers: Hyperlipidemia type: unspecified Qualified Code(s): E78.5 - Hyperlipidemia , unspecified (12) Type 2 diabetes mellitus with diabetic chronic kidney disease Priority: Secondary Status: Chronic Qualifiers: Diabetes mellitus correction insulin use: with correction use Chronic kidney disease stage: on chronic dialysis Qualified Code(s): E11.22 - Type 2 diabetes mellitus with diabetic chronic kidney disease; N18.6 - End stage renal disease; 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 Velarde is a 62 year old male with history of CAD s/p CABG, DM, ESRD on dialysis, GERD, hypertension, diastolic heart failure presented for syncope. Patient was going from bed to bathroom and was urinating and nephew heard a fall. Patient had pain in neck, shoulder and hip. He did mention of loss of conciousness briefly, he does not remember the fall. Pt was admitted in the hospital and placed him on hospital monitor. He does have significant ortho static hypotension which might contributed to his syncopal epiosde. Held all of his BP meds Lasix, Metoprolol and Imdur. Pt was evaluated by Nephro and held his HD on Friday. Pt has been doing well now, his BP and Ortho stat vital also little better today. So recommend to continue holding BP meds until he sees geoscientist on Friday at HD clinic. Also educated the pt about ortho stats. He was evaluated by PT / OT who suggested a front wheel walker, so will send him home with FWW today. Pt did c/o Left hip pain, I checked CT of Hip- which did not show any fracture. - Time Spent with Patient Total time spent providing and/or coordinating discharge services: - Discharge Medications Home Medications: Calcium Acetate [Phos-LO] 1,334 mg PO TIDWM 10/04/16 [History] Gabapentin [Neurontin] 300 mg PO BID 10/04/16 [History] Loratadine [Claritin] 10 mg PO DAILY 10/04/16 [History] Pantoprazole Sodium [Protonix] 40 mg PO DAILY 10/04/16 [History] Paroxetine [Paxil] 20 mg PO QAM 10/04/16 [History] Ranitidine HCl [Heartburn Relief] 150 mg PO DAILY 10/04/16 [History] Tamsulosin [Flomax] 0.4 mg PO DAILY 10/04/16 [History] Aspirin 81 mg PO DAILY #30 tab.chew 10/24/16 [Rx] Insulin ASPART [NovoLOG] 35 unit SQ BIDWM 04/25/17 [History] Clopidogrel [Plavix] 75 mg PO DAILY #30 tablet 04/28/17 [Rx] Atorvastatin Calcium [Lipitor] 20 mg PO HS #30 tablet 09/26/17 [Rx] Insulin Glargine,Hum.rec.anlog [Lantus Solostar] 35 unit SQ DAILY 01/29/18 [ History] Renal Vitamin [Renal Caps Softgel] 1 mg PO DAILY 01/29/18 [History] Lansoprazole [Prevacid] 30 mg PO QAM capsule. 01/31/18 [Rx] OxyCODONE Immed Rel [Roxicodone 5 MG] 5 mg PO Q6HR PRN 5 Days #0 01/31/18 [Rx] Allergies/Adverse Reactions: 3 Allergy/AdvReac Type Severity Reaction Status Date / Time codeine Allergy Unknown Hives Verified 10/04/16 16:06 Methadone Allergy Unknown Rash Verified 10/04/16 16:06 Penicillins [PCN] Allergy Unknown Rash Verified 10/04/16 16:06 promethazine [From Phenergan] Allergy Unknown Hives Verified 10/04/16 16:06 trazodone Allergy Unknown Itching Verified 10/04/16 16:06 Date of admission: 01/29/18 09:20 [facility] care physician: [facility] Consults: 01/29/18 13:36 Consult to Nephrology [CONS] Routine Consulting Provider: [facility]IRO Reason for Consult: dialysis patient, hypotension Call Completed: Yes 01/30/18 05:01 Consult to Studio Musician [CONS] Routine Reason for SW Consult: hemodialysis patient 01/30/18 05:02 Consult to Nutrition [CONS] Routine Comment: Consulting Provider: NUTRITION Reason for Dietary Consult: Other Other:: hemodialysis 01/30/18 13:00 Consult to Dialysis [CONS] ONCE - Constitutional Vitals: Temp Pulse Resp BP Pulse Ox 99.0 F 82 18 144/74 98 01/31/18 10:28 01/31/18 10:28 01/31/18 10:28 01/31/18 10:28 01/31/18 10:28 General appearance: Present: A&O X 3, no acute distress, answers questions appropriately - Head Head exam: Present: atraumatic, normal inspection - Neck Neck exam general surgery: Present: supple - Respiratory Respiratory exam: Present: decreased breath sounds. Absent: rales, respiratory distress, rhonchi, wheezes - Cardiovascular Cardiovascular exam: Present: RRR, +S1, +S2. Absent: tachycardia - GI/Abdominal GI/Abdominal exam: Present: normal bowel sounds, soft. Absent: rebound, rigid, tenderness - Extremities Exam Extremities exam: Absent: calf tenderness, pedal edema, tenderness - Back Exam Back exam: Absent: CVA tenderness (L), CVA tenderness (R) - Neurological Exam Neurological exam: Present: alert, no focal deficits - Psychiatric Psychiatric exam: Present: normal affect, normal mood - Patient Status Disposition: Home, Self-Care Condition: Good Overall status at discharge: patient is back to baseline - Discharge Instructions Follow Up With: [facility] [Primary Care Provider] - - Diet and Activity Activity: increase activity as tolerated Diet: low salt diet
--- NOTE | 2018-02-03 08:44 | Electrocardiograph Report ---
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
== END 2018-01-31 13:49 | disposition home or self-care (01) ==
LOC: 2ANU 05:45 → EMEROO 05:45 → 2ANU 11:07
PROVIDERS: ADMIT Student in an Organized Health Care Education/Training Program; ATTEND Family Medicine

== ENCOUNTER 2018-04-27 12:59 | Observation (INO) ==
[2018-04-27] MEDS ORDERED: Aspirin 81 MG TAB.CHEW PO ONE (13:23)
[2018-04-27] MEDS ORDERED: Ondansetron 4 MG/2 ML VIAL IVP ONE (13:23)
[2018-04-27] MEDS ORDERED: *HR* FentaNYL (PF) 100 MCG/2 ML VIAL IVP ONE ×2 (13:24→16:05)
[2018-04-27] MEDS ORDERED: Nitroglycerin 0.4 MG TAB.SUBL SL PRN (13:25)
--- NOTE | 2018-04-27 13:48 | Emergency Department Note ---
Disposition Clinical Impression: Chest pain Qualifiers: Chest pain type: unspecified Qualified Code(s): R07.9 - Chest pain, unspecified Disposition: Admitted As Inpatient Condition: Good Time of Disposition: 16:15 Chest Pain HPI - General Chief Complaint: ED Chest Pain Stated Complaint: CP Time Seen by Provider: 04/27/18 13:02 Source: patient, EMS Limitations: no limitations Vital Signs Reviewed: Yes Nursing Notes Reviewed: Yes - History of Present Illness HPI Narrative: Left-sided chest pain that began this morning. Sharp in nature. Radiates to his back and left arm. No associated shortness of breath. Is reporting some nausea this. One episode of diarrhea earlier this morning. Patient states this feels like his previous OR. Severity scale (1-10): 7 - Related Data Home Medications Medication Instructions Recorded Confirmed Calcium Acetate [Phos-LO] 1,334 mg PO TIDWM 10/04/16 01/29/18 Loratadine [Claritin] 10 mg PO DAILY 10/04/16 01/29/18 Pantoprazole Sodium [Protonix] 40 mg PO DAILY 10/04/16 01/29/18 Paroxetine [Paxil] 20 mg PO QAM 10/04/16 01/29/18 Ranitidine HCl [Heartburn Relief] 150 mg PO DAILY 10/04/16 01/29/18 Insulin ASPART [NovoLOG] 35 unit SQ BIDWM 04/25/17 09/16/17 Insulin Glargine,Hum.rec.anlog 35 unit SQ DAILY 01/29/18 01/29/18 [Lantus Solostar] Renal Vitamin [Renal Caps Softgel] 1 mg PO DAILY 01/29/18 01/29/18 OxyCODONE Immed Rel [Roxicodone 5 10 mg PO Q6HR PRN 04/27/18 04/27/18 MG] Tamsulosin [Flomax] 0.4 mg PO DAILY 04/27/18 04/27/18 Previous Rx's Medication Instructions Recorded Aspirin 81 mg PO DAILY #30 tab.chew 10/24/16 Clopidogrel [Plavix] 75 mg PO DAILY #30 tablet 04/28/17 Atorvastatin Calcium [Lipitor] 20 mg PO HS #30 tablet 09/26/17 Lansoprazole [Prevacid] 30 mg PO QAM capsule. 01/31/18 Allergies Allergy/AdvReac Type Severity Reaction Status Date / Time codeine Allergy Unknown Hives Verified 04/27/18 16:17 Methadone Allergy Unknown Rash Verified 04/27/18 16:17 Penicillins [PCN] Allergy Unknown Rash Verified 04/27/18 16:17 promethazine [From Phenergan] Allergy Unknown Hives Verified 04/27/18 16:17 trazodone Allergy Unknown Itching Verified 04/27/18 16:17 All systems ED: reviewed and negative except as stated. Constitutional: Reports: chills (Occasional). Denies: fever Cardiovascular: Reports: chest pain. Denies: palpitations, syncope Respiratory: Denies: cough, dyspnea Gastrointestinal: Reports: nausea, diarrhea. Denies: abdominal pain, vomiting Musculoskeletal: Denies: back pain, neck pain Integumentary: Denies: rash Neurological: Denies: weakness Chest Pain PMH - Past Medical History Medical history: Reports: coronary artery disease, diabetes, dialysis, GERD, hyperlipidemia, hypertension, renal disease, other Surgical history: Reports: angioplasty/stent, coronary bypass (CABG) (2v CABG in 1998, redo 3v CABG in 2002), orthopedic, other (Surgery on right knee x4, scope on left knee x1), other (Amputation of left great toe, re-attachment of right hand after accident at work) Psychiatric history: Reports: anxiety, depression - Social History Smoking Status: Never smoker Alcohol use: Reports: none Drug use: Reports: none Physical Exam - General Limitations: no limitations General appearance: alert, in no apparent distress - Head Head exam: atraumatic, normocephalic, normal inspection - Eye Eye exam: Present: normal appearance, PERRL, EOMI - ENT ENT exam: normal exam, normal oropharynx, mucous membranes moist - Neck Neck exam: Present: normal inspection, full ROM, trachea midline - Chest Chest inspection: Present: normal inspection, symmetric chest wall rise - Respiratory Respiratory exam: Present: normal lung sounds bilaterally - Cardiovascular Cardiovascular exam: Present: regular rate, normal rhythm, normal heart sounds - Abdominal Exam Abdominal exam: Present: soft, Non-Tender. Absent: tenderness, distention, guarding, rebound, rigidity, organomegaly - Extremities Exam Extremities exam: Present: normal inspection, full ROM, normal capillary refill. Absent: tenderness, pedal edema - Back Exam Back exam: Present: normal inspection, full ROM. Absent: tenderness - Neurological Exam Neurological exam: Present: alert, oriented X3 - Psychiatric Psychiatric exam: Present: normal affect, normal mood - Skin Skin exam: Present: warm, dry, intact, normal color. Absent: rash, cyanosis, diaphoresis Course Course Narrative: Male patient presenting to the emergency department, complaining of chest pain that started this morning. Describes it as a sharp pain in the left side of his chest radiates to his back and on his left arm. States this is how his previous OR stop. Did have an OR in October with one stent placed. He is a dialysis patient. Missed his last dialysis treatment last week and is now missing a dialysis treatment today. States that he just was not feeling well all week and all weekend. Just general malaise. Denies any shortness of breath. Lung sounds are clear heart tones are normal abdomen is soft nontender. Does report one episode of loose stools this morning. No blood in this. No trouble urinating. Does still make urine. We will get basic lab workup as well as EKG and chest x-ray. - Reevaluation(s) Reevaluation #1: Patient reassessed. He is still having chest pain. He has a concerning EKG with T-wave inversions in leads 1, V5 and V6. However these were present on his previous EKG dated 01/29/2018. We will place an inch of Nitropaste on the patient's chest admitted to the hospital. Time: 16:06 - Consultations Consultation #1: Dr Vivar accepted Pt in stable condition. Time: 17:04 Vital Signs Temperature 98.1 F 04/27/18 13:02 Pulse Rate 88 04/27/18 13:02 Respiratory Rate 18 04/27/18 13:02 Blood Pressure 118/72 04/27/18 13:02 O2 Sat by Pulse Oximetry 96 04/27/18 13:02 Temperature 98.1 F 04/27/18 13:02 Pulse Rate 72 04/27/18 16:51 Respiratory Rate 18 04/27/18 16:51 Blood Pressure 142/76 04/27/18 16:51 O2 Sat by Pulse Oximetry 99 04/27/18 16:51 Oxygen Delivery Oxygen Delivery Room Air Chest Pain - Medical Records Medical records reviewed: Yes I reviewed the patient's medical records. - Lab Data Lab results reviewed: Yes I reviewed the patient's lab results. Result diagrams: 04/27/18 13:58 04/27/18 13:58 Lab Results 04/27/18 04/27/18 04/27/18 Range/Units 13:58 13:58 13:58 WBC 4.0 L (4.3-11.1) K/mcL RBC 2.94 L (4.19-5.50) M/mcL Hgb 9.3 L (12.9-16.9) g/dL Hct 26.1 L (37.5-50.1) % MCV 88.8 (83.0-100.0) fL MCH 31.6 (28.0-33.3) pg MCHC 35.6 H (31.6-35.5) g/dL RDW 12.7 (11.5-14.5) % Plt Count 68 L (140-400) K/mcL MPV 11.4 (9.4-12.4) fL Immature Gran % 0.3 (0-4) % Seg Neutrophils % 66.5 % Lymphocytes % 21.3 % Monocytes % 10.6 % Eosinophils % 1.0 % Basophils % 0.3 % Neutrophils # 2.7 (1.6-8.9) K/mcL Lymphocytes # 0.9 (0.6-4.6) K/mcL Monocytes # 0.4 (0.0-1.3) K/mcL Eosinophils # 0.0 (0.0-0.6) K/mcL Basophils # 0.0 (0.0-0.2) K/mcL Immature Plt Fraction 5.5 (1.1-6.1) % PT 10.3 (9.4-12.1) Seconds INR 1.0 APTT 29.4 (26.0-36.0) Seconds Sodium 136 (136-145) mEq/L Potassium 4.0 (3.5-5.1) mEq/L Chloride 102 (98-107) mEq/L Carbon Dioxide 23 (23-29) mEq/L BUN 40 H (8-23) mg/dL Creatinine 4.50 H (0.70-1.30) mg/dL Est GFR ( Amer) 16 L (> 60) Est GFR (Non-Af Amer) 13 L (> 60) BUN/Creatinine Ratio 9 (6-26) Glucose 146 H (70-105) mg/dL Calculated Osmolality 294 (280-300) Calcium 9.3 (8.6-10.3) mg/dL Troponin I 0.05 H* (< 0.04) ng/mL - Radiology Data Radiology results reviewed: Yes I reviewed the patient's radiology results. - EKG Data EKG attestation: Yes I reviewed and interpreted this EKG. EKG results narrative: Normal sinus rhythm at a rate of 70. FL interval is 128. QRS duration is 102. QT is 419. QTC is 440. No signs of acute ischemia however there are T-wave inversions in leads 1 and V5 and V6. These are on the previous EKG dated 2017. No significant change from his previous EKG.
--- NOTE | 2018-04-27 14:23 | Emergency Department Note ---
Disposition Clinical Impression: Chest pain Qualifiers: Chest pain type: unspecified Qualified Code(s): R07.9 - Chest pain, unspecified Disposition: Admitted As Inpatient Condition: Good General Adult HPI - General Chief complaint: ED Chest Pain Stated complaint: CP Time Seen by Provider: 04/27/18 13:02 Source: patient, EMS Limitations: no limitations - History of Present Illness Pain Scale: 7 - Related Data Home Medications Medication Instructions Recorded Confirmed Calcium Acetate [Phos-LO] 1,334 mg PO TIDWM 10/04/16 04/27/18 Loratadine [Claritin] 10 mg PO DAILY 10/04/16 04/27/18 Pantoprazole Sodium [Protonix] 40 mg PO DAILY 10/04/16 04/27/18 Paroxetine [Paxil] 20 mg PO QAM 10/04/16 04/27/18 Ranitidine HCl [Heartburn Relief] 150 mg PO DAILY 10/04/16 04/27/18 Insulin ASPART [NovoLOG] 35 unit SQ BIDWM 04/25/17 04/27/18 Insulin Glargine,Hum.rec.anlog 35 unit SQ QAM 01/29/18 04/27/18 [Lantus Solostar] Renal Vitamin [Renal Caps Softgel] 1 mg PO DAILY 01/29/18 04/27/18 OxyCODONE Immed Rel [Roxicodone 5 10 mg PO Q6HR PRN 04/27/18 04/27/18 MG] Tamsulosin [Flomax] 0.4 mg PO DAILY 04/27/18 04/27/18 Previous Rx's Medication Instructions Recorded Aspirin 81 mg PO DAILY #30 tab.chew 10/24/16 Clopidogrel [Plavix] 75 mg PO DAILY #30 tablet 04/28/17 Atorvastatin Calcium [Lipitor] 20 mg PO HS #30 tablet 09/26/17 Lansoprazole [Prevacid] 30 mg PO QAM capsule. 01/31/18 Allergies Allergy/AdvReac Type Severity Reaction Status Date / Time codeine Allergy Unknown Hives Verified 04/27/18 16:17 Methadone Allergy Unknown Rash Verified 04/27/18 16:17 Penicillins [PCN] Allergy Unknown Rash Verified 04/27/18 16:17 promethazine [From Phenergan] Allergy Unknown Hives Verified 04/27/18 16:17 trazodone Allergy Unknown Itching Verified 04/27/18 16:17 Constitutional: Reports: chills (Occasional). Denies: fever Cardiovascular: Reports: chest pain. Denies: palpitations, syncope Respiratory: Denies: cough, dyspnea Gastrointestinal: Reports: nausea, diarrhea. Denies: abdominal pain, vomiting Musculoskeletal: Denies: back pain, neck pain Integumentary: Denies: rash Neurological: Denies: weakness Past Medical History - Past Medical History Medical history: Reports: coronary artery disease, diabetes, dialysis, GERD, hyperlipidemia, hypertension, renal disease, other Surgical history: Reports: angioplasty/stent, coronary bypass (CABG) (2v CABG in 1998, redo 3v CABG in 2002), orthopedic, other (Surgery on right knee x4, scope on left knee x1), other (Amputation of left great toe, re-attachment of right hand after accident at work) Psychiatric history: Reports: anxiety, depression - Social History Smoking Status: Never smoker Smokeless Tobacco Status: No Alcohol use: Reports: none Drug use: Reports: none Physical Exam - General Limitations: no limitations General appearance: alert, in no apparent distress Course Vital Signs Temperature 98.1 F 04/27/18 13:02 Pulse Rate 88 04/27/18 13:02 Respiratory Rate 18 04/27/18 13:02 Blood Pressure 118/72 04/27/18 13:02 O2 Sat by Pulse Oximetry 96 04/27/18 13:02 Temperature 97.7 F 04/27/18 19:43 Pulse Rate 62 04/27/18 19:43 Respiratory Rate 16 04/27/18 19:43 Blood Pressure 150/72 04/27/18 19:43 O2 Sat by Pulse Oximetry 99 04/27/18 19:43 Oxygen Delivery Oxygen Delivery Room Air Medical Decision Making - Lab Data Result diagrams: 04/27/18 13:58 04/27/18 13:58 Lab Results 04/27/18 04/27/18 04/27/18 Range/Units 13:58 13:58 13:58 WBC 4.0 L (4.3-11.1) K/mcL RBC 2.94 L (4.19-5.50) M/mcL Hgb 9.3 L (12.9-16.9) g/dL Hct 26.1 L (37.5-50.1) % MCV 88.8 (83.0-100.0) fL MCH 31.6 (28.0-33.3) pg MCHC 35.6 H (31.6-35.5) g/dL RDW 12.7 (11.5-14.5) % Plt Count 68 L (140-400) K/mcL MPV 11.4 (9.4-12.4) fL Immature Gran % 0.3 (0-4) % Seg Neutrophils % 66.5 % Lymphocytes % 21.3 % Monocytes % 10.6 % Eosinophils % 1.0 % Basophils % 0.3 % Neutrophils # 2.7 (1.6-8.9) K/mcL Lymphocytes # 0.9 (0.6-4.6) K/mcL Monocytes # 0.4 (0.0-1.3) K/mcL Eosinophils # 0.0 (0.0-0.6) K/mcL Basophils # 0.0 (0.0-0.2) K/mcL Immature Plt Fraction 5.5 (1.1-6.1) % PT 10.3 (9.4-12.1) Seconds INR 1.0 APTT 29.4 (26.0-36.0) Seconds Sodium 136 (136-145) mEq/L Potassium 4.0 (3.5-5.1) mEq/L Chloride 102 (98-107) mEq/L Carbon Dioxide 23 (23-29) mEq/L BUN 40 H (8-23) mg/dL Creatinine 4.50 H (0.70-1.30) mg/dL Est GFR ( Amer) 16 L (> 60) Est GFR (Non-Af Amer) 13 L (> 60) BUN/Creatinine Ratio 9 (6-26) Glucose 146 H (70-105) mg/dL Calculated Osmolality 294 (280-300) Calcium 9.3 (8.6-10.3) mg/dL Troponin I 0.05 H* (< 0.04) ng/mL Attestation Statement - Attestation Attestation: I examined this patient and my medical decision-making was reviewed with the Resident Physician. I agree with the documented findings, disposition and treatment plan as described except to the extent set forth below. Patient presents to the ED with a chief complaint of chest pain. Describes it as substernal pressure. Patient states it feels like prior MD. He was sent in from dialysis. He is on no distress with clear lungs on my examination. Plan. Cardiac workup and likely observation. Nitroglycerin trial.
[2018-04-27 14:32] LABS: Basophils % 0.3 %; Immature Granulocytes % 0.3 % (0-4); Mean Platelet Volume 11.4 fL (9.4-12.4); Monocytes % 10.6 %; Red Cell Distribution Width 12.7 % (11.5-14.5)
[2018-04-27 14:33] LABS: Hematocrit 26.1 % (37.5-50.1); Hemoglobin 9.3 g/dL (12.9-16.9); Immature Platelets 5.5 % (1.1-6.1); Lymphocytes % 21.3 %; Mean Corpuscular HGB Conc 35.6 g/dL (31.6-35.5); Mean Corpuscular Hemoglobin 31.6 pg (28.0-33.3); Mean Corpuscular Volume 88.8 fL (83.0-100.0); Monocytes # 0.4 K/mcL (0.0-1.3); Red Blood Count 2.94 M/mcL (4.19-5.50); Segmented Neutrophils % 66.5 %
[2018-04-27 14:39] LABS: Calcium 9.3 mg/dL (8.6-10.3)
[2018-04-27 14:41] LABS: Prothrombin Time 10.3 Seconds (9.4-12.1)
[2018-04-27 14:42] LABS: Troponin I 0.05 ng/mL (< 0.04)
[2018-04-27 14:43] LABS: Activated Partial Thrombo Time 29.4 Seconds (26.0-36.0)
[2018-04-27 15:38] LABS: Lymphocytes # 0.9 K/mcL (0.6-4.6); Neutrophils # 2.7 K/mcL (1.6-8.9); Platelet Count 68 K/mcL (140-400)
[2018-04-27] MEDS ORDERED: Nitroglycerin 1 INCH/GM PACKET TP ONE (16:04)
--- NOTE | 2018-04-27 18:07 | Internal Med History&Physical ---
Date of Encounter: 04/27/18 Time of Encounter: 18:05 Internal Medicine - H&P: HPI Chief complaint: chest pain Admitted From: Emergency Dept Plans for Post Hospital Care: Home History of present illness: Mr. Velarde is a 63 year old male Patient with history of CAD had a CABG in the past, diabetes, CHF, high cholesterol, hypertension, ESRD on HD hemodialysis, GERD anxiety and depression. Patient presented emergency room with chest pain describes as a pressure going down left arm and back says similar to previous CA chest pain has been over 7 hours mostly constant but recurrent troponin is mildly elevated last nuclear stress test April last which was negative for ischemia echo at that time EF 55% patient will be admitted I will consult cardiology for further evaluation. Past Med Surg Social Fam HX - Past Medical History Medical history: coronary artery disease, diabetes, dialysis, GERD, hyperlipidemia, hypertension, renal disease, other Additional medical history: dialysis M/W/F Psychiatric history: anxiety, depression - Past Surgical History Surgical History: angioplasty/stent, coronary bypass (CABG) (2v CABG in 1998, redo 3v CABG in 2002), orthopedic, other (Surgery on right knee x4, scope on left knee x1), other (Amputation of left great toe, re-attachment of right hand after accident at work) Additional surgical history: reattached hand, Left great toe amputee. - Social History Smoking Status: Never smoker Smokeless Tobacco Status: No Alcohol use: none Drug use: none - Family History Father Adopted: No Family Member Ethnicity: Non- Living Status: Still Living Hx Family Cardiac Disorders: Yes (Coronary artery disease?) Hx Family Respiratory Disorders: No Hx Family Cancer: Yes Hx Family GI Disorders: No Hx Family Endocrine Disorder: Yes (brothers, sister) Hx Family Neuromuscular Disorders: No Hx Family Neurologic Disorders: No Hx Family HEENT Disorders: No Hx Family Autoimmune Disorders: No Brother Family Member Ethnicity: Non- Living Status: Still Living Hx Family Cardiac Disorders: Yes (CA) Sister Family Member Ethnicity: Non- Living Status: Still Living Hx Family Endocrine Disorder: Yes (DM) Mother Adopted: No Family Member Ethnicity: Non- Living Status: Still Living Hx Family Cardiac Disorders: Yes (CA, Pacemaker) Hx Family Respiratory Disorders: Yes (COPD) Hx Family Cancer: Yes Hx Family GI Disorders: No Hx Family Endocrine Disorder: Yes (DM) Hx Family Neuromuscular Disorders: No Hx Family Neurologic Disorders: No Hx Family HEENT Disorders: No Hx Family Autoimmune Disorders: No Internal Medicine - H&P: Meds Calcium Acetate [Phos-LO] 1,334 mg PO TIDWM 10/04/16 [History] Loratadine [Claritin] 10 mg PO DAILY 10/04/16 [History] Pantoprazole Sodium [Protonix] 40 mg PO DAILY 10/04/16 [History] Paroxetine [Paxil] 20 mg PO QAM 10/04/16 [History] Ranitidine HCl [Heartburn Relief] 150 mg PO DAILY 10/04/16 [History] Aspirin 81 mg PO DAILY #30 tab.chew 10/24/16 [Rx] Insulin ASPART [NovoLOG] 35 unit SQ BIDWM 04/25/17 [History] Clopidogrel [Plavix] 75 mg PO DAILY #30 tablet 04/28/17 [Rx] Atorvastatin Calcium [Lipitor] 20 mg PO HS #30 tablet 09/26/17 [Rx] Insulin Glargine,Hum.rec.anlog [Lantus Solostar] 35 unit SQ QAM 01/29/18 [ History] Renal Vitamin [Renal Caps Softgel] 1 mg PO DAILY 01/29/18 [History] Lansoprazole [Prevacid] 30 mg PO QAM capsule. 01/31/18 [Rx] OxyCODONE Immed Rel [Roxicodone 5 MG] 10 mg PO Q6HR PRN 04/27/18 [History] Tamsulosin [Flomax] 0.4 mg PO DAILY 04/27/18 [History] 3 Allergy/AdvReac Type Severity Reaction Status Date / Time codeine Allergy Unknown Hives Verified 04/27/18 16:17 Methadone Allergy Unknown Rash Verified 04/27/18 16:17 Penicillins [PCN] Allergy Unknown Rash Verified 04/27/18 16:17 promethazine [From Phenergan] Allergy Unknown Hives Verified 04/27/18 16:17 trazodone Allergy Unknown Itching Verified 04/27/18 16:17 All Systems PM: A 10-system review of systems was performed and is negative for pertinent findings except as documented above in the HPI. - Constitutional Vitals: Temp Pulse Resp BP Pulse Ox 98.1 F 72 18 142/76 99 04/27/18 13:02 04/27/18 16:51 04/27/18 16:51 04/27/18 16:51 04/27/18 16:51 - Head Head exam: Present: atraumatic, normocephalic - Eye Eye exam: Present: PERRL, conjuntiva pink, sclera anicteric Pupils: Present: PERRL - Neck Neck exam general surgery: Present: supple, trachea midline. Absent: lymphadenopathy - Respiratory Respiratory exam: Present: CTAB. Absent: accessory muscle use, rales, rhonchi, wheezes - Cardiovascular Cardiovascular exam: Present: RRR, +S1, +S2. Absent: diastolic murmur, gallop, rubs, systolic murmur - GI/Abdominal GI/Abdominal exam: Present: normal bowel sounds, soft, no peritoneal signs. Absent: distended, tenderness - Extremities Exam Extremities exam: Present: warm, radial pulses palpable and symmetrical. Absent : calf tenderness, cyanotic, pedal edema - Neurological Exam Neurological exam: Present: CN II-XII intact, oriented X3, no focal deficits. Absent: pronater drift, facial droop, speech deficit - Skin Skin exam: Present: dry, intact Internal Med - H&P Results - Labs CBC & Chem 7: 04/27/18 13:58 04/27/18 13:58 - Assessment and plan (1) ESRD (end stage renal disease) Current Visit: Yes Status: Chronic Assessment and plan: Chronic will consult nephrology for dialysis (2) Chest pain Current Visit: No Status: Acute Assessment and plan: Chest pain no patient with history of a CABG troponin mildly elevated with trend troponin and consult cardiology nuclear stress s April last year negative for ischemia Qualifiers: Chest pain type: other chest pain Qualified Code(s): R07.89 - Other chest pain; R07.8 - Other chest pain (3) Anemia Current Visit: No Status: Chronic Qualifiers: Anemia type: due to chronic kidney disease Chronic kidney disease stage: on chronic dialysis Qualified Code(s): N18.6 - End stage renal disease; D63.1 - Anemia in chronic kidney disease; Z99.2 - Dependence on renal dialysis (4) Hypertension Current Visit: No Status: Chronic Assessment and plan: Chronic and well controlled Qualifiers: Hypertension type: essential hypertension Qualified Code(s): I10 - Essential (primary) hypertension (5) Elevated troponin Current Visit: No Status: Resolved Assessment and plan: With transient troponin and consult cardiology (6) HLD (hyperlipidemia) Current Visit: No Status: Chronic Qualifiers: Hyperlipidemia type: pure hypercholesterolemia Qualified Code(s): E78.00 - Pure hypercholesterolemia, unspecified; E78.0 - Pure hypercholesterolemia - Time Spent With Patient Total time spent is greater than 50% in coordination of care (as documented) at patient's floor/unit and/or counseling patient:
[2018-04-27] MEDS ORDERED: Acetaminophen 325 MG TABLET PO PRN (18:13)
[2018-04-27] MEDS ORDERED: traMADol 50 MG TABLET PO PRN (18:13)
[2018-04-27] MEDS ORDERED: Naloxone 0.4 MG/ML INJ IVP PRN (18:13)
[2018-04-27] MEDS ORDERED: *HR* HYDROcodone/Acet 5/325 mg TABLET PO PRN (18:13)
[2018-04-27] MEDS: *HR* OxyCODONE Immed Rel 5 MG TABLET PO PRN (19:52)
[2018-04-27] MEDS: Ondansetron 4 MG/2 ML VIAL IVP PRN (19:53)
[2018-04-27] MEDS ORDERED: *HR* Heparin 5,000 UNIT/ML VIAL IVP ONE (21:04)
[2018-04-27] MEDS ORDERED: *HR* Heparin 5,000 UNIT/ML VIAL IVP PRN ×2 (21:04)
[2018-04-27] MEDS ORDERED: Heparin 25,000 UNIT/500 ML D5W 25,000 UNIT/500 ML BAG IVC SCH (21:15)
--- NOTE | 2018-04-27 21:16 | Electrocardiograph Report ---
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
[2018-04-27 21:49] LABS: Mean Corpuscular Volume 89.5 fL (83.0-100.0)
[2018-04-27 21:51] LABS: Hematocrit 28.1 % (37.5-50.1); Mean Corpuscular HGB Conc 35.6 g/dL (31.6-35.5); Mean Corpuscular Hemoglobin 31.8 pg (28.0-33.3); Red Blood Count 3.14 M/mcL (4.19-5.50); Red Cell Distribution Width 12.8 % (11.5-14.5)
[2018-04-27 21:58] LABS: Prothrombin Time 11.1 Seconds (9.4-12.1)
[2018-04-27 22:06] LABS: Activated Partial Thrombo Time 30.9 Seconds (26.0-36.0)
--- NOTE | 2018-04-27 22:18 | Event Note ---
Date of Encounter: 04/27/18 Time of Encounter: 19:25 Alerted by patient's nurse YADY Pollard of critical troponin results. Previous troponin 0.05 with second troponin 0.04, trending down. However patient was reporting 7/10 chest pain and was given 10 mg Roxicodone. Patient has Nitropaste from ER in place. 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 Patient's stat EKG showed sinus rhythm with moderate T-wave abnormality, consider lateral ischemia. Patient's previous EKG from 13:09 today showed sinus rhythm with ST deviation and moderate T-wave abnormality, consider lateral ischemia. Dr. Perdomo's recommendation was to begin low-dose heparin drip due to patient's cardiac history and patient would be seen in the a.m. I appreciate the consult and recommendations. Will monitor patient, vital signs, troponin, and chest pain closely overnight.
--- NOTE | 2018-04-28 00:02 | Event Note ---
Date of Encounter: 04/27/18 Time of Encounter: 23:22 Pts. platelet count found to be 68. Order for heparin drip discontinued. Pt. received approx 5,350 units including initial bolus. Pt. still reports CP of . Discussed case w/Dr. León w/recommendation for 25 mcg IVP Fentanyl Q4HR PRN for CP. Waiting on third troponin level. Pt. has hx of low/fluctuating platelet counts over the past two years. Will monitor in 04:00 labs. Pt. to be monitored closely overnight.
[2018-04-28] MEDS: *HR* FentaNYL (PF) 100 MCG/2 ML VIAL IVP PRN ×2 (00:05→21:33)
[2018-04-28 05:41] LABS: Hematocrit 27.3 % (37.5-50.1); Hemoglobin 9.7 g/dL (12.9-16.9); Immature Platelets 4.7 % (1.1-6.1); Mean Corpuscular HGB Conc 35.5 g/dL (31.6-35.5); Mean Corpuscular Hemoglobin 31.9 pg (28.0-33.3); Mean Corpuscular Volume 89.8 fL (83.0-100.0); Mean Platelet Volume 10.9 fL (9.4-12.4); Red Blood Count 3.04 M/mcL (4.19-5.50); Red Cell Distribution Width 12.9 % (11.5-14.5)
[2018-04-28 05:57] LABS: Alanine Aminotransferase 17 Units/L (7-52); Albumin 3.6 g/dL (3.5-5.7); Albumin/Globulin Ratio 1.2 (1.1-2.2); Alkaline Phosphatase 117 Units/L (34-104); Aspartate Amino Transferase 22 Units/L (13-39); BUN/Creatinine Ratio 9 (6-26); Bilirubin,Total 0.4 mg/dL (0.3-1.0); Blood Urea Nitrogen 44 mg/dL (8-23); Calcium 8.9 mg/dL (8.6-10.3); Carbon Dioxide 23 mEq/L (23-29); Chloride 104 mEq/L (98-107); Chol/HDL Ratio 9.6 (0-4.9); Cholesterol 270 mg/dL (< 200); Globulin 2.9 g/dL (2.4-3.5); Glucose 201 mg/dL (70-105); HDL Cholesterol 28 mg/dL (40-59); Osmolality,Calculated 301 (280-300); Potassium 4.3 mEq/L (3.5-5.1); Sodium 137 mEq/L (136-145); Total Protein 6.5 g/dL (6.4-8.9); Triglycerides 467 mg/dL (< 150); eGFR For African Americans 15 (> 60); eGFR For Non-African Americans 13 (> 60)
[2018-04-28] MEDS ORDERED: 0.9 % Sodium Chloride 1,000 ML ONE (07:40)
--- NOTE | 2018-04-28 08:30 | Cardiology Consult Note ---
<TobiPeter Anum - Last Filed: 04/28/18 09:09> Date of Encounter: 04/28/18 Time of Encounter: 08:30 Assessment and Plan (1) Elevated troponin Current Visit: No Status: Acute Per Cardiology: Somewhat atypical symptoms. Has not been utilizing nitroglycerin pills. Mild troponin elevation 0.05 and then 0.043. Flat and adynamic. Appears to be around baseline since May 2017. Do not suspect non-STEMI, suspect demand ischemia. No cardiac rehabilitation warranted. Previously on long-acting nitrate, however patient is not sure why not taking now. We will start Imdur 30 mg by mouth daily. Additionally, patient reports Gemma Suggs CNP in process of exploring potential referral to [facility] for potential Rotablator-- Gemma notified and will explore in outpatient setting. Cardiology will sign off, reconsult as needed, follow-up arranged. (2) CAD (coronary artery disease), [place] coronary artery Current Visit: No Status: Chronic Per Cardiology: History of CAD with 2 vessel CABG in 1998 and redo three-vessel CABG in 2002. Last heart catheterization September 2017 status post drug-eluting stent to 80% left main distal stenosis, LAD occluded proximally, circumflex with mid to distal disease, OM1 with BAG BUNDLER proximal refill distal by severely diseased SVG, RCA BAG BUNDLER, occluded LOPEZ proximally, SVG to OM1 proximal extremely tortuous unable to cross balloon. Patient on dual antiplatelet therapy of aspirin and Plavix (llifelong). On statin, however cholesterol levels not well-controlled-- will titrate from 20 mg to 80 mg of Lipitor (patient agreeable). Will resume home dose of beta sam. Qualifiers: [place] vs. transplanted heart: [place] heart Associated angina: without angina Qualified Code(s): I25.10 - Atherosclerotic heart disease of [place] coronary artery without angina pectoris Discussion w patient/family: The assessment and plan as outlined above was discussed with the patient who expressed understanding and agreement. All questions were answered. Thank you for involving us in the care of your patient. Please call with any questions. History of Present Illness Consult date: 04/28/18 Requesting physician: Donnell Marie Consult reason: CP Chief complaint: CP History of present illness: Mr. Velarde is a 63 year old male with a relevant past medical history CAD with 2 vessel CABG in 1998 and redo three-vessel CABG in 2002, end-stage renal disease on hemodialysis, hypertension, DM 2, and anemia of chronic disease, chronic back pain and falls with pain management clinic. 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 Cardiology consult for chest pain. Patient reports he awakened yesterday morning to prepare for dialysis and had midsternal chest pressure/heaviness with nausea with radiation to left arm and on his back. He reports prior to this event has not been experiencing increased frequency of chest pain and does not utilize nitroglycerin pills in quite some time. He does report recent increase in emotional stress and financial stress dealing with a nephew. He reports he did miss dialysis yesterday because they sent him to the ER for evaluation. Past Med Surg Social Fam HX - Past Medical History Attestation: Yes The following information was validated with the patient. Source: patient, old records reviewed Medical history: coronary artery disease, diabetes, dialysis, GERD, hyperlipidemia, hypertension, renal disease, other Additional medical history: dialysis M/W/F Psychiatric history: anxiety, depression - Past Surgical History Surgical History: angioplasty/stent, coronary bypass (CABG) (2v CABG in 1998, redo 3v CABG in 2002), orthopedic, other (Surgery on right knee x4, scope on left knee x1), other (Amputation of left great toe, re-attachment of right hand after accident at work) Additional surgical history: hand reattached, knee surgery, toe amputation - Social History Smoking Status: Never smoker Smokeless Tobacco Status: No Alcohol use: none Drug use: none - Family History Father Adopted: No Family Member Ethnicity: Non- Living Status: Still Living Hx Family Cardiac Disorders: Yes (Coronary artery disease?) Hx Family Respiratory Disorders: No Hx Family Cancer: Yes Hx Family GI Disorders: No Hx Family Endocrine Disorder: Yes (brothers, sister) Hx Family Neuromuscular Disorders: No Hx Family Neurologic Disorders: No Hx Family HEENT Disorders: No Hx Family Autoimmune Disorders: No Brother Family Member Ethnicity: Non- Living Status: Still Living Hx Family Cardiac Disorders: Yes (MS) Sister Family Member Ethnicity: Non- Living Status: Still Living Hx Family Endocrine Disorder: Yes (DM) Mother Adopted: No Family Member Ethnicity: Non- Living Status: Still Living Hx Family Cardiac Disorders: Yes (MS, Pacemaker) Hx Family Respiratory Disorders: Yes (COPD) Hx Family Cancer: Yes Hx Family GI Disorders: No Hx Family Endocrine Disorder: Yes (DM) Hx Family Neuromuscular Disorders: No Hx Family Neurologic Disorders: No Hx Family HEENT Disorders: No Hx Family Autoimmune Disorders: No Medications and Allergies Calcium Acetate [Phos-LO] 1,334 mg PO TIDWM 10/04/16 [History] Loratadine [Claritin] 10 mg PO DAILY 10/04/16 [History] Pantoprazole Sodium [Protonix] 40 mg PO DAILY 10/04/16 [History] Paroxetine [Paxil] 20 mg PO QAM 10/04/16 [History] Ranitidine HCl [Heartburn Relief] 150 mg PO DAILY 10/04/16 [History] Aspirin 81 mg PO DAILY #30 tab.chew 10/24/16 [Rx] Insulin ASPART [NovoLOG] 35 unit SQ BIDWM 04/25/17 [History] Clopidogrel [Plavix] 75 mg PO DAILY #30 tablet 04/28/17 [Rx] Atorvastatin Calcium [Lipitor] 20 mg PO HS #30 tablet 09/26/17 [Rx] Insulin Glargine,Hum.rec.anlog [Lantus Solostar] 35 unit SQ QAM 01/29/18 [ History] Renal Vitamin [Renal Caps Softgel] 1 mg PO DAILY 01/29/18 [History] Lansoprazole [Prevacid] 30 mg PO QAM capsule. 01/31/18 [Rx] OxyCODONE Immed Rel [Roxicodone 5 MG] 10 mg PO Q6HR PRN 04/27/18 [History] Tamsulosin [Flomax] 0.4 mg PO DAILY 04/27/18 [History] 3 Allergy/AdvReac Type Severity Reaction Status Date / Time codeine Allergy Unknown Hives Verified 04/27/18 16:17 Methadone Allergy Unknown Rash Verified 04/27/18 16:17 Penicillins [PCN] Allergy Unknown Rash Verified 04/27/18 16:17 promethazine [From Phenergan] Allergy Unknown Hives Verified 04/27/18 16:17 trazodone Allergy Unknown Itching Verified 04/27/18 16:17 All Systems Review: The remainder of the systems were reviewed and are negative - Cardiovascular Cardiovascular: as per HPI, chest pain at rest, radiating jaw, neck or arm pain - Gastrointestinal Gastrointestinal: nausea Physical Examination Vital Signs, Last 4 Hours Temp Pulse Resp BP Pulse Ox 04/28/18 06:58 98 F 65 17 128/74 98 General: Conversant, No Apparent Distress HEENT: Atraumatic, Normocephaly, Mucus Membranes Moist Neck: No JVD, Normal carotid pulses Cardiac: Reg Rate and Rhythm, Normal S1 and S2, No Murmur Lungs: Normal Breath Sounds, No Wheeze, Rales, Rhonchi Neuro: Alert and responsive, No focal deficits noted Abdomen: Soft, Non-Tender Skin: No rashes noted on visualized skin Musculoskeletal: No Chest Wall Tenderness Extremities: No Clubbing, No Cyanosis, No Edema, Normal Pulses Results 04/28/18 05:21 04/28/18 05:21 Lab Results Laboratory Tests 04/27/18 04/27/18 04/27/18 13:58 13:58 18:42 Hgb Hct INR 1.0 Creatinine Est GFR (Non-Af Amer) Magnesium AST ALT Troponin I 0.05 H* 0.04 H* B-Natriuretic Peptide 04/28/18 04/28/18 04/28/18 00:35 05:21 05:21 Hgb 9.7 L Hct 27.3 L INR Creatinine 4.75 H Est GFR (Non-Af Amer) 13 L Magnesium 2.0 AST 22 ALT 17 Troponin I 0.04 H* B-Natriuretic Peptide 04/28/18 04/28/18 05:21 05:21 Hgb Hct INR Creatinine Est GFR (Non-Af Amer) Magnesium AST ALT Troponin I 0.04 H* B-Natriuretic Peptide 755 H ITS Impressions Chest X-Ray 04/27/18 13:23 IMPRESSION: Stable chest examination. Mild left basilar atelectasis. D/ / Adamaris Brito MD / Adamaris Brito MD Interpreting Provider: Adamaris Brito MD Active Medications Acetaminophen (Tylenol) 650 mg PO Q6HR PRN PRN Reason: Mild Pain/Fever Stop: 10/27/18 18:14 Hydrocodone Bitart/Acetaminophen ([place] 5-325 Mg) 1 tab PO Q6HR PRN PRN Reason: Moderate Pain Stop: 10/27/18 18:14 Aspirin (Aspirin) 81 mg PO DAILY [facility] Stop: 10/28/18 09:01 Atorvastatin Calcium (Lipitor) 20 mg PO HS [facility] Stop: 10/27/18 21:01 Last Admin: 04/27/18 19:52 Dose: 20 mg Calcium Acetate (Phos-Lo) 1,334 mg PO TIDWM [facility] Stop: 10/28/18 08:01 Clopidogrel Bisulfate (Plavix) 75 mg PO DAILY [facility] Stop: 10/28/18 09:01 Fentanyl Citrate (Fentanyl (Pf)) 25 mcg IVP Q4HR PRN PRN Reason: Chest Pain Stop: 10/28/18 00:01 Last Admin: 04/28/18 00:05 Dose: 25 mcg Insulin Detemir (Levemir) 35 unit SQ QAM [facility] Stop: 10/28/18 09:01 Lansoprazole (Prevacid) 30 mg PO QAM [facility] PRN Reason: Protocol Stop: 10/28/18 09:01 Loratadine (Claritin) 10 mg PO DAILY [facility] PRN Reason: Protocol Stop: 10/28/18 09:01 Naloxone HCl (Narcan) 0.4 mg IVP Q2MIN PRN PRN Reason: SEE COMMENTS Stop: 10/27/18 18:14 Nitroglycerin (Nitroglycerin) 0.4 mg SL Q5MIN PRN PRN Reason: Chest Pain Stop: 10/27/18 13:26 Last Admin: 04/27/18 13:57 Dose: 0.4 mg Ondansetron HCl (Zofran) 4 mg IVP Q6HR PRN; Protocol PRN Reason: Nausea And Vomiting Stop: 10/27/18 19:38 Last Admin: 04/27/18 19:53 Dose: 4 mg Oxycodone HCl (Roxicodone) 10 mg PO Q6HR PRN; Protocol PRN Reason: Severe Pain Stop: 10/27/18 18:16 Last Admin: 04/27/18 19:52 Dose: 10 mg Paroxetine HCl (Paxil) 20 mg PO QAM [facility] PRN Reason: Protocol Stop: 10/28/18 09:01 Tamsulosin HCl (Flomax) 0.4 mg PO DAILY [facility] PRN Reason: Protocol Stop: 10/28/18 09:01 Tramadol HCl (Ultram) 50 mg PO Q6HR PRN PRN Reason: Moderate Pain Stop: 10/27/18 18:14 Vitamin B Complex/Vit C/Folic Acid (Renal Caps Softgel) 1 mg PO DAILY ЕЛЕНА Stop: 10/28/18 09:01 - Imaging and Cardiology Echo: report reviewed Cardiac cath: report reviewed - EKG Interpretation EKG results cardiology: personally reviewed (No significant changes from baseline), sinus rhythm Consult Discharge Plan - Plan [facility] Care Provider[facility] - <Clovis Long - Last Filed: 04/28/18 17:00> Date of Encounter: 04/28/18 - Attending Attestation I have personally performed a face to face evaluation on this patient. I have reviewed and agree with the care plan. History and Exam by me shows: 63 YOM known extensive CAD presents with chest pain and adynamic trops. Reviewed last [facility] I believe his LOPEZ to LAD is patent and STENT to CIRC with excellent angiographic results. Continue medical management if echo reveals preserved EF as baseline Assessment and Plan Discussion w patient/family: The assessment and plan as outlined above was discussed with the patient and/or family members who expressed understanding and agreement. All questions were answered. Thank you for involving us in the care of your patient. Please call with any questions. History of Present Illness History of present illness: Mr. Velarde is a 63 year old male All Systems Review: The remainder of the systems were reviewed and are negative Physical Examination Vital Signs, Last 4 Hours Temp Resp BP 04/28/18 15:35 96.9 F L 18 124/62 04/28/18 15:15 118/48 04/28/18 15:00 114/55 04/28/18 14:45 120/57 04/28/18 14:30 120/57 04/28/18 14:15 116/55 04/28/18 14:00 109/56 04/28/18 13:45 116/57 04/28/18 13:30 123/56 04/28/18 13:15 124/61 04/28/18 13:00 124/59 Results 04/28/18 05:21 04/28/18 05:21 Lab Results 04/27/18 04/27/18 04/27/18 18:42 21:04 21:04 WBC 3.9 L Hgb 10.0 L Hct 28.1 L Plt Count 68 L INR 1.0 APTT 30.9 Sodium Potassium Chloride Carbon Dioxide BUN Creatinine Glucose Calcium Magnesium Total Bilirubin AST ALT Alkaline Phosphatase Troponin I 0.04 H* B-Natriuretic Peptide 04/28/18 04/28/18 04/28/18 00:35 05:21 05:21 WBC 3.2 L Hgb 9.7 L Hct 27.3 L Plt Count 65 L INR APTT Sodium 137 Potassium 4.3 Chloride 104 Carbon Dioxide 23 BUN 44 H Creatinine 4.75 H Glucose 201 H Calcium 8.9 Magnesium 2.0 Total Bilirubin 0.4 AST 22 ALT 17 Alkaline Phosphatase 117 H Troponin I 0.04 H* B-Natriuretic Peptide 04/28/18 04/28/18 04/28/18 05:21 05:21 05:21 WBC Hgb Hct Plt Count INR APTT 28.4 Sodium Potassium Chloride Carbon Dioxide BUN Creatinine Glucose Calcium Magnesium Total Bilirubin AST ALT Alkaline Phosphatase Troponin I 0.04 H* B-Natriuretic Peptide 755 H
[2018-04-28] MEDS ORDERED: NON-FORMULARY MEDICATION 1 EACH EACH (Pantoprazole Sodium [Protonix] 40 MG) PO SCH (09:00)
[2018-04-28] MEDS: *HR* OxyCODONE Immed Rel 5 MG TABLET PO PRN ×2 (09:52→23:36)
[2018-04-28] MEDS: Ondansetron 4 MG/2 ML VIAL IVP PRN (09:52)
[2018-04-28] MEDS ORDERED: 0.9 % Sodium Chloride 250 ML IVC PRN (11:44)
[2018-04-28] MEDS ORDERED: 0.9 % Sodium Chloride 1,000 ML PRIME SCH (12:00)
[2018-04-28 12:01] LABS: Hepatitis B Surface Antigen Nonreactive (Nonreactive)
[2018-04-28] MEDS: Calcium Acetate 667 MG CAPSULE PO SCH ×3 (12:34→16:41)
[2018-04-28] MEDS: Aspirin 81 MG TAB.CHEW PO SCH (16:41)
[2018-04-28] MEDS: Renal Vitamin 1 MG CAPSULE PO SCH (16:41)
[2018-04-28] MEDS: Isosorbide MONOnitrate (24 HR) 30 MG TAB.ER.24H PO SCH (16:41)
[2018-04-28] MEDS: Loratadine 10 MG TABLET PO SCH (16:42)
[2018-04-28] MEDS: Insulin DETEMIR 100 UNIT/ML X5UNITS SQ SCH (16:43)
--- NOTE | 2018-04-28 16:54 | Internal Med Progress Note ---
Date of Encounter: 04/28/18 Time of Encounter: 16:57 - Assessment and plan (1) Chest pain Current Visit: Yes Status: Acute Assessment and plan: presented with chest pain. Serial troponin 0.05, 0.04, 0.04. Evaluated by Cardiology who did not suspect non-STEMI but rather demand ischemia. Long- acting nitrate started per cardiology recommendations. Continues to have chest pain evening of 04/28 exam. Continue home ASA, Plavix, statin (dose increased by cardiology) and Imdur. Monitor on telemetry. Qualifiers: Chest pain type: unspecified Qualified Code(s): R07.9 - Chest pain, unspecified (2) CAD (coronary artery disease), [place] coronary artery Current Visit: No Status: Chronic Assessment and plan: hx 2 vessel CABG in 1998 and redo three-vessel CABG in 2002. 09/2017 [facility] with drug-eluting stent to left main distal stenosis. With chest pain and plan as noted above. ASA, Plavix, statin (dose increased by cardiology) and Imdur Qualifiers: [place] vs. transplanted heart: [place] heart Associated angina: without angina Qualified Code(s): I25.10 - Atherosclerotic heart disease of [place] coronary artery without angina pectoris (3) ESRD (end stage renal disease) on dialysis Current Visit: No Status: Acute Assessment and plan: per hx. On HD /. Nephrology following (4) DVT prophylaxis Current Visit: No Status: Acute Assessment and plan: SCD - Time Spent With Patient Total time spent is greater than 50% in coordination of care (as documented) at patient's floor/unit and/or counseling patient: - Subjective Interval history: Seen and examined at bedside. Patient is due to me, information obtained from chart review and patient report. He still reporting mild chest discomfort; says that Dr. Long came by later this afternoon and mention something about possible left heart catheterization. No chest pain. He just returned from HD in the setting of a bedside eating dinner. He is agreeable to stay overnight for further cardiac monitoring. - Constitutional Vitals: Temp Pulse Resp BP Pulse Ox 96.9 F L 64 18 124/62 98 04/28/18 15:35 04/28/18 11:07 04/28/18 15:35 04/28/18 15:35 04/28/18 11:07 General appearance: Present: A&O X 3, pleasant, no acute distress - Head Head exam: Present: atraumatic, normocephalic - Eye Eye exam: Present: PERRL, conjuntiva pink, sclera anicteric Pupils: Present: PERRL - Neck Neck exam general surgery: Present: supple, trachea midline. Absent: lymphadenopathy - Respiratory Respiratory exam: Present: CTAB. Absent: accessory muscle use, rales, rhonchi, wheezes - Cardiovascular Cardiovascular exam: Present: RRR, +S1, +S2. Absent: diastolic murmur, gallop, rubs, systolic murmur - GI/Abdominal GI/Abdominal exam: Present: normal bowel sounds, soft, no peritoneal signs. Absent: distended, tenderness - Extremities Exam Extremities exam: Present: warm, radial pulses palpable and symmetrical. Absent : calf tenderness, cyanotic, pedal edema - Neurological Exam Neurological exam: Present: CN II-XII intact, oriented X3, no focal deficits. Absent: pronater drift, facial droop, speech deficit - Skin Skin exam: Present: dry, intact Internal Medicine: Result - Labs CBC & Chem 7: 04/28/18 05:21 04/28/18 05:21 Labs: Short CBC 04/27/18 04/28/18 Range/Units 21:04 05:21 WBC 3.9 L 3.2 L (4.3-11.1) K/mcL Hgb 10.0 L 9.7 L (12.9-16.9) g/dL Hct 28.1 L 27.3 L (37.5-50.1) % Plt Count 68 L 65 L (140-400) K/mcL BMP 04/28/18 05:21 Sodium 137 Potassium 4.3 Chloride 104 Carbon Dioxide 23 BUN 44 H Creatinine 4.75 H Glucose 201 H Calcium 8.9 Cardiac Enzymes 04/27/18 04/28/18 04/28/18 Range/Units 18:42 00:35 05:21 Troponin I 0.04 H* 0.04 H* 0.04 H* (< 0.04) ng/mL Liver Function 04/28/18 Range/Units 05:21 Total Bilirubin 0.4 (0.3-1.0) mg/dL AST 22 (13-39) Units/L ALT 17 (7-52) Units/L Alkaline Phosphatase 117 H (34-104) Units/L Albumin 3.6 (3.5-5.7) g/dL - ABG Interpretation ABG results: PT/INR, D-dimer PT 11.1 Seconds (9.4-12.1) 04/27/18 21:04 Consult Discharge Plan - Plan [facility]errals: [facility] [Primary Care Provider] -
--- NOTE | 2018-04-28 18:21 | Electrocardiograph Report ---
[address] [place], [place] [address] Test Date: 2018-04-27 Pat Name: Orlando Velarde Department: 104 Room: 3B64 Gender: M Service Order Expediter: AM : 1955 Requested By: Marialuisa Vivar Order Number: [id number] Reading MD: Ivan Ruiz Measurements Intervals [place] Rate: 65 P: -11 LA: 155 QRS: 57 QRSD: 96 T: 147 QT: 434 QTc: 446 Interpretive Statements SINUS RHYTHM LATERAL ISCHEMIA Electronically Signed On 04-28-2018 18:19:41 EDT by Ivan Ruiz
--- NOTE | 2018-04-28 18:37 | Electrocardiograph Report ---
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
[2018-04-29] MEDS: *HR* FentaNYL (PF) 100 MCG/2 ML VIAL IVP PRN ×2 (01:33→09:04)
[2018-04-29 02:08] LABS: Hepatitis B Surface Antibody 0.85 mIU/mL
[2018-04-29] MEDS ORDERED: Melatonin 3 MG TABLET PO PRN (04:26)
[2018-04-29] MEDS ORDERED: 0.9 % Sodium Chloride 2,000 ML ONE (06:20)
[2018-04-29] MEDS: Isosorbide MONOnitrate (24 HR) 30 MG TAB.ER.24H PO SCH (08:02)
[2018-04-29 08:12] LABS: Mean Corpuscular Hemoglobin 32.3 pg (28.0-33.3); Red Cell Distribution Width 12.8 % (11.5-14.5)
[2018-04-29 08:14] LABS: Hematocrit 26.6 % (37.5-50.1); Hemoglobin 9.5 g/dL (12.9-16.9); Immature Platelets 5.9 % (1.1-6.1); Mean Corpuscular HGB Conc 35.7 g/dL (31.6-35.5); Mean Corpuscular Volume 90.5 fL (83.0-100.0); Mean Platelet Volume 11.5 fL (9.4-12.4); Red Blood Count 2.94 M/mcL (4.19-5.50)
[2018-04-29] MEDS ORDERED: D5% in Water 1,000 ML IVC PRN (08:17)
[2018-04-29] MEDS ORDERED: *HR* Dextrose 50 % in Water (Syg) 50 ML SYRINGE IVP PRN (08:17)
[2018-04-29] MEDS ORDERED: Dextrose Gel 15 GM/37.5 ML TUBE PO PRN ×2 (08:17)
[2018-04-29] MEDS: Aspirin 81 MG TAB.CHEW PO SCH (08:19)
[2018-04-29] MEDS: Loratadine 10 MG TABLET PO SCH (08:19)
[2018-04-29] MEDS: Calcium Acetate 667 MG CAPSULE PO SCH (08:19)
[2018-04-29] MEDS: Renal Vitamin 1 MG CAPSULE PO SCH (08:19)
[2018-04-29] MEDS: Insulin DETEMIR 100 UNIT/ML X5UNITS SQ SCH (08:19)
--- NOTE | 2018-04-29 08:38 | Nephrology Consult Note ---
Date of Encounter: 04/29/18 Time of Encounter: 08:36 Assessment and Plan (1) ESRD (end stage renal disease) on dialysis Current Visit: No Status: Acute The patient will undergo dialysis today to get him back on schedule. Hemoglobin is 9.7 be placed on Aranesp. He may be transferred to [facility] for further cardiac evaluation. (2) Type 2 diabetes mellitus with diabetic chronic kidney disease Current Visit: No Status: Chronic Qualifiers: Diabetes mellitus usp insulin use: with terminal clerk use Chronic kidney disease stage: on chronic dialysis Qualified Code(s): E11.22 - Type 2 diabetes mellitus with diabetic chronic kidney disease; N18.6 - End stage renal disease; Z79.4 - [facility] (current) use of insulin; Z99.2 - Dependence on renal dialysis (3) NSTEMI (non-ST elevated myocardial infarction) Current Visit: No Status: Acute History of Present Illness - History of Present Illness This is a 63-year-old male who is followed for end-stage renal disease related to diabetes and hypertension. Patient was admitted several days ago with the onset of chest pain similar to previous episodes of angina associated with coronary disease. He does have a significant history of coronary disease and is status post CABG. His last heart catheter believe was last year. Troponin is mildly elevated. He is continuing to experience chest discomfort that is not completely relieved with nitroglycerin. Patient has his usual shortness of breath. He denies any peripheral edema. He did miss dialysis Friday and he had dialysis here in the hospital yesterday. Past Med Surg Social Fam HX - Past Medical History Medical history: coronary artery disease, diabetes, dialysis, GERD, hyperlipidemia, hypertension, renal disease, other Additional medical history: dialysis M/W/F Psychiatric history: anxiety, depression - Past Surgical History Surgical History: angioplasty/stent, coronary bypass (CABG) (2v CABG in 1998, redo 3v CABG in 2002), orthopedic, other (Surgery on right knee x4, scope on left knee x1), other (Amputation of left great toe, re-attachment of right hand after accident at work) Additional surgical history: hand reattached, knee surgery, toe amputation - Social History Smoking Status: Never smoker Smokeless Tobacco Status: No Alcohol use: none Drug use: none - Family History Father Adopted: No Family Member Ethnicity: Non- Living Status: Still Living Hx Family Cardiac Disorders: Yes (Coronary artery disease?) Hx Family Respiratory Disorders: No Hx Family Cancer: Yes Hx Family GI Disorders: No Hx Family Endocrine Disorder: Yes (brothers, sister) Hx Family Neuromuscular Disorders: No Hx Family Neurologic Disorders: No Hx Family HEENT Disorders: No Hx Family Autoimmune Disorders: No Brother Family Member Ethnicity: Non- Living Status: Still Living Hx Family Cardiac Disorders: Yes (DC) Sister Family Member Ethnicity: Non- Living Status: Still Living Hx Family Endocrine Disorder: Yes (DM) Mother Adopted: No Family Member Ethnicity: Non- Living Status: Still Living Hx Family Cardiac Disorders: Yes (DC, Pacemaker) Hx Family Respiratory Disorders: Yes (COPD) Hx Family Cancer: Yes Hx Family GI Disorders: No Hx Family Endocrine Disorder: Yes (DM) Hx Family Neuromuscular Disorders: No Hx Family Neurologic Disorders: No Hx Family HEENT Disorders: No Hx Family Autoimmune Disorders: No Medications and Allergies Calcium Acetate [Phos-LO] 1,334 mg PO TIDWM 10/04/16 [History] Loratadine [Claritin] 10 mg PO DAILY 10/04/16 [History] Pantoprazole Sodium [Protonix] 40 mg PO DAILY 10/04/16 [History] Paroxetine [Paxil] 20 mg PO QAM 10/04/16 [History] Ranitidine HCl [Heartburn Relief] 150 mg PO DAILY 10/04/16 [History] Aspirin 81 mg PO DAILY #30 tab.chew 10/24/16 [Rx] Insulin ASPART [NovoLOG] 35 unit SQ BIDWM 04/25/17 [History] Clopidogrel [Plavix] 75 mg PO DAILY #30 tablet 04/28/17 [Rx] Atorvastatin Calcium [Lipitor] 20 mg PO HS #30 tablet 09/26/17 [Rx] Insulin Glargine,Hum.rec.anlog [Lantus Solostar] 35 unit SQ QAM 01/29/18 [ History] Renal Vitamin [Renal Caps Softgel] 1 mg PO DAILY 01/29/18 [History] Lansoprazole [Prevacid] 30 mg PO QAM 01/31/18 [Rx] OxyCODONE Immed Rel [Roxicodone 5 MG] 10 mg PO Q6HR PRN 04/27/18 [History] Tamsulosin [Flomax] 0.4 mg PO DAILY 04/27/18 [History] 3 Allergy/AdvReac Type Severity Reaction Status Date / Time codeine Allergy Unknown Hives Verified 04/27/18 16:17 Methadone Allergy Unknown Rash Verified 04/27/18 16:17 Penicillins [PCN] Allergy Unknown Rash Verified 04/27/18 16:17 promethazine [From Phenergan] Allergy Unknown Hives Verified 04/27/18 16:17 trazodone Allergy Unknown Itching Verified 04/27/18 16:17 Review of Systems Constitutional: as per HPI, weakness Eyes: bilateral: blurred vision (patient denies), diplopia (patient denies) Nose, mouth and throat: no dizziness, no headache(s) Cardiovascular: chest pain, chest pain at rest, dyspnea on exertion, no palpitations Respiratory: dyspnea on exertion Gastrointestinal: no abdominal pain, no change in bowel habits Genitourinary Male: as per HPI Musculoskeletal: no muscle weakness, no numbness Integumentary: no hirsutism, no striae Neurological: weakness Psychiatric: no depression, no difficulty concentrating Endocrine: as per HPI Hematologic/Lymphatic: no easy bruising, no lymphadenopathy Exam - Vital Signs Vital signs: Initial Vital Signs Temp Pulse Resp BP Pulse Ox 98.1 F 88 18 118/72 96 04/27/18 13:02 04/27/18 13:02 04/27/18 13:02 04/27/18 13:02 04/27/18 13:02 Vital Signs - Last 8 Hours Temp Pulse Resp BP Pulse Ox 04/29/18 07:06 98 F 62 17 109/52 98 04/29/18 03:31 98.2 F 72 16 111/49 99 Intake and Output 04/28/18 04/29/18 04/29/18 23:59 07:59 15:59 Output Total 200 / 200 Balance -200 / -200 Output: Urine 200 / 200 Other: Meal Dinner Percent of Meal Consumed 95% Weight 95.8 kg Blood Glucose* 291 332 Patient Weight 04/29/18 23:59 Weight 95.8 kg - General Appearance Exam: Patient is alert and oriented. In no acute distress. Blood pressure 109/52. Lungs essentially clear to auscultation. Heart regular rate and rhythm with a 2 /6 stock ejection murmur. Abdomen shows normal bowel sounds appraise masses, megaly or tenderness. There is functioning AV fistula in the left upper extremity. There is no significant lower extremity swelling. Results - Lab Results 04/29/18 07:36 04/28/18 05:21 Most recent lab results Calcium 8.9 mg/dL (8.6-10.3) 04/28/18 05:21 Magnesium 2.0 mg/dL (1.6-2.6) 04/28/18 05:21 Consult Discharge Plan - Plan [facility]errals: [facility] [Primary Care Provider] -
[2018-04-29 08:39] LABS: Calcium 8.7 mg/dL (8.6-10.3); Potassium 4.4 mEq/L (3.5-5.1)
[2018-04-29] MEDS ORDERED: 0.9 % Sodium Chloride 250 ML IVC PRN (08:39)
--- NOTE | 2018-04-29 09:17 | Discharge Summary ---
Date of Encounter: 04/29/18 Time of Encounter: 09:14 - Discharge Diagnosis (1) Chest pain Priority: Primary Status: Acute Assessment and Plan: presented with chest pain. Serial troponin 0.05, 0.04, 0.04. No acute EKG changes. Evaluated by Cardiology who did not suspect non-STEMI but rather demand ischemia. Long-acting nitrate started per cardiology recommendations. Continued to have chest pain despite adding isosorbide. Outpatient Ob Gyn was considering potential referral to [facility] for potential Rotablator as 09/2017 [facility] showed SCG-OM1 proximal lesion extremely tortuous, unable to cross balloon. Discussed case with [facility] transfer center and patient will be transferred to [facility] for cardiology consultation and possible intervention. Continue home ASA, Plavix, statin and Imdur. Qualifiers: Chest pain type: unspecified Qualified Code(s): R07.9 - Chest pain, unspecified (2) CAD (coronary artery disease), [place] coronary artery Priority: Primary Status: Chronic Assessment and Plan: hx 2 vessel CABG in 1998 and redo three-vessel CABG in 2002. Recent testing [facility] 09/18/17: successful PCI/ABBI to LM (80%) distal stenosis; LAD occluded proximally , LCx with mid to distal disease, OM1 [employer] proximal filled distal by severely diseased SVG, RCA [employer]; LOPEZ occluded proximally, SCG-OM1 proximal lesion extremely tortuous, unable to cross balloon. [facility] 09/16/17: LVEF 55%, mild cLVH , severe LVDD, normal RV structure and function, mild TR, mild PH, normal wall motion. Cont ASA, Plavix, statin and Imdur. Plan as noted above Qualifiers: [place] vs. transplanted heart: [place] heart Associated angina: without angina Qualified Code(s): I25.10 - Atherosclerotic heart disease of [place] coronary artery without angina pectoris (3) ESRD (end stage renal disease) on dialysis Priority: Primary Status: Acute Assessment and Plan: per hx. On HD M// (4) DM renal manif type II Priority: Primary Status: Acute Assessment and Plan: per hx. Blood sugars elevated. Cont home long-acting. 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 He still complaining of chest pain, rates 06/26. 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 Discussed with patient and he is requesting transfer to [facility].) - Time Spent with Patient Total time spent providing and/or coordinating discharge services: - Discharge Medications Home Medications: Calcium Acetate [Phos-LO] 1,334 mg PO TIDWM 10/04/16 [History] Loratadine [Claritin] 10 mg PO DAILY 10/04/16 [History] Pantoprazole Sodium [Protonix] 40 mg PO DAILY 10/04/16 [History] Paroxetine [Paxil] 20 mg PO QAM 10/04/16 [History] Ranitidine HCl [Heartburn Relief] 150 mg PO DAILY 10/04/16 [History] Aspirin 81 mg PO DAILY #30 tab.chew 10/24/16 [Rx] Insulin ASPART [NovoLOG] 35 unit SQ BIDWM 04/25/17 [History] Clopidogrel [Plavix] 75 mg PO DAILY #30 tablet 04/28/17 [Rx] Insulin Glargine,Hum.rec.anlog [Lantus Solostar] 35 unit SQ QAM 01/29/18 [ History] Renal Vitamin [Renal Caps Softgel] 1 mg PO DAILY 01/29/18 [History] Lansoprazole [Prevacid] 30 mg PO QAM capsule. 01/31/18 [Rx] OxyCODONE Immed Rel [Roxicodone 5 MG] 10 mg PO Q6HR PRN 04/27/18 [History] Tamsulosin [Flomax] 0.4 mg PO DAILY 04/27/18 [History] Atorvastatin [Lipitor] 80 mg PO HS tablet 04/29/18 [Rx] Isosorbide MONOnitrate (24 HR) [Imdur] 30 mg PO DAILY tab.er.24h 04/29/18 [Rx] Metoprolol [Lopressor] 12.5 mg PO BID tablet 04/29/18 [Rx] Allergies/Adverse Reactions: 3 Allergy/AdvReac Type Severity Reaction Status Date / Time codeine Allergy Unknown Hives Verified 04/27/18 16:17 Methadone Allergy Unknown Rash Verified 04/27/18 16:17 Penicillins [PCN] Allergy Unknown Rash Verified 04/27/18 16:17 promethazine [From Phenergan] Allergy Unknown Hives Verified 04/27/18 16:17 trazodone Allergy Unknown Itching Verified 04/27/18 16:17 Date of admission: 04/27/18 17:47 [facility] care physician[facility] Consults: 04/27/18 18:16 Consult to Cardiology [CONS] Routine Comment: Consulting Provider: Cardiology Poonam Reason for Consult: chest pain Time Notified: 18:17 Call Completed: No 04/28/18 11:45 Consult to Dialysis [CONS] ONCE 04/29/18 08:45 Consult to Dialysis [CONS] ONCE Discharging clinician: Candy Merino Anticipated date of discharge: 04/29/18 - Constitutional Vitals: Temp Pulse Resp BP Pulse Ox 98 F 62 17 109/52 98 04/29/18 07:06 04/29/18 07:06 04/29/18 07:06 04/29/18 07:06 04/29/18 07:06 General appearance: Present: mild distress (appears uncomfortable), A&O X 3, pleasant, no acute distress - Head Head exam: Present: atraumatic, normocephalic - Eye Eye exam: Present: PERRL, conjuntiva pink, sclera anicteric Pupils: Present: PERRL - Neck Neck exam general surgery: Present: supple, trachea midline. Absent: lymphadenopathy - Respiratory Respiratory exam: Present: CTAB. Absent: accessory muscle use, rales, rhonchi, wheezes - Cardiovascular Cardiovascular exam: Present: RRR, +S1, +S2. Absent: diastolic murmur, gallop, rubs, systolic murmur - GI/Abdominal GI/Abdominal exam: Present: normal bowel sounds, soft, no peritoneal signs. Absent: distended, tenderness - Extremities Exam Extremities exam: Present: warm, radial pulses palpable and symmetrical. Absent : calf tenderness, cyanotic, pedal edema - Neurological Exam Neurological exam: Present: CN II-XII intact, oriented X3, no focal deficits. Absent: pronater drift, facial droop, speech deficit - Skin Skin exam: Present: dry, intact - Patient Status Disposition: Transfer Other Condition: Good Functional capacity at discharge: independent ambulation Overall status at discharge: patient is progressing back to baseline - Discharge Instructions [facility] With: [facility] Care Provider[facility] - - Diet and Activity Activity: increase activity as tolerated Diet: low fat, low cholesterol
[2018-04-29 11:26] VITALS: BP 135/63
[2018-04-29] MEDS ORDERED: Insulin LISPRO 300 UNITS/3 ML VIAL SQ SCH ×2 (11:30→21:00)
== END 2018-04-29 11:56 | disposition short-term general hospital (02) ==
LOC: 3BNU 12:59 → EMEROO 12:59 → 3BNU 19:46
PROVIDERS: ADMIT Internal Medicine; ATTEND Internal Medicine

== ENCOUNTER 2018-12-10 01:32 | Inpatient (IN) ==
[2018-12-10] MEDS ORDERED: Cefepime HCl 1,000 MG in Water for inj. (sterile) 20 ML 10 ML IVP ONE (03:00)
--- NOTE | 2018-12-10 03:13 | Emergency Department Note ---
Addendum entered and electronically signed by Jesus Green DO 12/10/18 06:24: Patient's blood sugar was reported out as 2400. This information was relayed on to the hospitalist. We will recheck the patient's blood glucose and electrolytes Addendum entered and electronically signed by Jesus Green DO 12/10/18 05:28: POC glucose was read as high. Labs and they are diluting down the glucose. Will administer 10 units insulin as well as a 500 mL bolus. Original Note: Disposition Clinical Impression: End stage renal disease Diabetic foot ulcer Qualifiers: Diabetic foot ulcer location: unspecified part of foot Diabetes mellitus type: other specified (including ERIC) Laterality: unspecified laterality Non-pressure ulcer stage: unspecified non-pressure ulcer stage Qualified Code(s): E13.621 - Other specified diabetes mellitus with foot ulcer Disposition: Admitted As Inpatient Condition: Fair Time of Disposition: 05:00 Extremity Problem HPI - General Chief complaint: ED Extremity Problem,Nontraumatic Stated complaint: ulcer on left foot Time Seen by Provider: 12/10/18 02:44 Source: patient Mode of arrival: ambulatory Limitations: no limitations Nursing Notes Reviewed: Yes Vital Signs Reviewed: Yes - History of Present Illness HPI Narrative: 63-year-old male history of ESRD, HD Friday, CAD, diabetes. For evaluation of foot ulcer. Patient notes a foot also has started approximately 3-4 days ago on the lateral aspect of the left dorsum of his foot. Notes redness over the past 2 days. Patient is not on any antibiotics currently. Patient has a prior history of left great toe amputation. Patient denies any nausea vomiting. Denies abdominal pain. She denies any chest pain source of breath. No fevers. Patient does have decreased sensation of the lower extremities bilaterally consistent with his diabetes. Patient did com plete his dialysis appointment earlier today. Pain Scale: 7 - Related Data Home Medications Medication Instructions Recorded Confirmed RX: Calcium Acetate [Phos-LO] 1,334 mg PO TIDWM 10/04/16 05/29/18 RX: Loratadine [Claritin] 10 mg PO DAILY 10/04/16 05/29/18 RX: Pantoprazole Sodium [Protonix] 40 mg PO DAILY 10/04/16 05/29/18 RX: Paroxetine [Paxil] 20 mg PO QAM 10/04/16 05/29/18 RX: Ranitidine HCl [Heartburn 150 mg PO DAILY 10/04/16 05/29/18 Relief] RX: Insulin ASPART [NovoLOG] 35 unit SQ BIDWM 04/25/17 05/29/18 RX: Insulin Glargine,Hum.rec.anlog 35 unit SQ QAM 01/29/18 05/29/18 [Lantus Solostar] RX: Renal Vitamin [Renal Caps 1 mg PO DAILY 01/29/18 05/29/18 Softgel] RX: OxyCODONE Immed Rel 10 mg PO Q6HR PRN 04/27/18 05/29/18 [Roxicodone 5 MG] RX: Tamsulosin [Flomax] 0.4 mg PO DAILY 04/27/18 05/29/18 RX: Melatonin 1 mg PO HS 05/29/18 05/29/18 Previous Rx's Medication Instructions Recorded RX: Aspirin 81 mg PO DAILY #30 tab.chew 10/24/16 RX: Clopidogrel [Plavix] 75 mg PO DAILY #30 tablet 04/28/17 RX: Lansoprazole [Prevacid] 30 mg PO QAM capsule. 01/31/18 RX: Atorvastatin [Lipitor] 80 mg PO HS tablet 04/29/18 RX: Isosorbide MONOnitrate (24 HR) 30 mg PO DAILY tab.er.24h 04/29/18 [Imdur] RX: Metoprolol [Lopressor] 12.5 mg PO BID tablet 04/29/18 RX: Ranolazine [Ranexa] 500 mg PO BID #60 tab.er.12h 06/03/18 Allergies Allergy/AdvReac Type Severity Reaction Status Date / Time codeine Allergy Unknown Hives Verified 05/29/18 22:26 methadone [Methadone] Allergy Unknown Rash Verified 05/29/18 22:26 Penicillins [PCN] Allergy Unknown Rash Verified 05/29/18 22:26 promethazine [From Phenergan] Allergy Unknown Hives Verified 05/29/18 22:26 trazodone Allergy Unknown Itching Verified 05/29/18 22:26 All systems ED: reviewed and negative except as stated. Constitutional: Denies: fever Cardiovascular: Denies: chest pain Respiratory: Denies: cough, dyspnea Gastrointestinal: Denies: abdominal pain, nausea, vomiting Past Medical History - Past Medical History Source: patient Medical history: Reports: coronary artery disease, diabetes, dialysis, GERD, hyperlipidemia, hypertension, myocardial infarction, renal disease, other Surgical history: Reports: angioplasty/stent, coronary bypass (CABG) (2v CABG in 1998, redo 3v CABG in 2002), orthopedic, other (Surgery on right knee x4, scope on left knee x1), other (Amputation of left great toe, re-attachment of right hand after accident at work) Psychiatric history: Reports: anxiety, depression - Social History Smoking Status: Never smoker Smokeless Tobacco Status: No Alcohol use: Reports: none Drug use: Reports: none Physical Exam - General Limitations: no limitations General appearance: alert, in no apparent distress - Head Head exam: atraumatic, normocephalic, normal inspection - Eye Eye exam: Present: normal appearance, PERRL, EOMI - ENT ENT exam: normal exam, normal oropharynx, mucous membranes moist - Neck Neck exam: Present: normal inspection, full ROM, trachea midline - Chest Chest inspection: Present: normal inspection - Respiratory Respiratory exam: Present: normal lung sounds bilaterally. Absent: respiratory distress - Cardiovascular Cardiovascular exam: Present: regular rate, normal rhythm. Absent: systolic murmur - Abdominal Exam Abdominal exam: Present: soft, Non-Tender - Expanded Lower Extremity Exam Lower leg exam: Present: normal inspection Ankle exam: Present: normal inspection Foot/toe exam: Present: other (Patient does have a 1 cm circumferential ulcer on the lateral aspect of the dorsum of the left foot with some purulent drainage. Surrounding erythema. Palpable DPs 3 second cap refill.) - Back Exam Back exam: Present: normal inspection - Neurological Exam Neurological exam: Present: alert - Skin Skin exam: Present: warm, dry, intact, normal color Course Course Narrative: Patient seen and examined. Concerns for diabetic foot ulcer. Patient will get imaging of left foot as well as placed on appropriate antibiotics. Given the progression and timeframe or the past 4 days patient will likely require admission for monitoring as well as IV antibiotics. Vital Signs Temperature 97.6 F 12/10/18 01:39 Pulse Rate 83 12/10/18 01:39 Respiratory Rate 16 12/10/18 01:39 Blood Pressure 157/79 12/10/18 01:39 O2 Sat by Pulse Oximetry 99 12/10/18 01:39 Temperature 97.6 F 12/10/18 01:39 Pulse Rate 78 12/10/18 04:14 Respiratory Rate 16 12/10/18 04:14 Blood Pressure 147/58 12/10/18 04:14 O2 Sat by Pulse Oximetry 98 12/10/18 04:14 Oxygen Delivery Oxygen Delivery Room Air Extremity Problem, Nontraumati - MDM Narrative Medical decision making narrative: Patient presents for concerns of diabetic foot ulcer. Patient's onset of symptoms prompted ED evaluation and recommended admission. No signs of osteochondral on imaging. Patient will get basic labs as well as antibiotics Vanco and cefepime given his penicillin allergy. Consult was placed podiatry however call was not completed due to the nonemergent nature. - Lab Data Lab results reviewed: Yes I reviewed the patient's lab results. Result diagrams: 12/10/18 03:34 12/10/18 03:34 Lab Results 12/10/18 12/10/18 Range/Units 03:34 03:34 WBC 3.8 L (4.3-11.1) K/mcL RBC 3.47 L (4.19-5.50) M/mcL Hgb 10.6 L (12.9-16.9) g/dL Hct 31.8 L (37.5-50.1) % MCV 91.6 (83.0-100.0) fL MCH 30.5 (28.0-33.3) pg MCHC 33.3 (31.6-35.5) g/dL RDW 13.7 (11.5-14.5) % Plt Count 88 L (140-400) K/mcL MPV 11.8 (9.4-12.4) fL Immature Gran % 0.5 (0-4) % Seg Neutrophils % 74.6 % Lymphocytes % 12.7 % Monocytes % 11.4 % Eosinophils % 0.5 % Basophils % 0.3 % Neutrophils # 2.8 (1.6-8.9) K/mcL Lymphocytes # 0.5 L (0.6-4.6) K/mcL Monocytes # 0.4 (0.0-1.3) K/mcL Eosinophils # 0.0 (0.0-0.6) K/mcL Basophils # 0.0 (0.0-0.2) K/mcL Sodium 129 L (136-145) mEq/L Potassium 4.5 (3.5-5.1) mEq/L Chloride 92 L (98-107) mEq/L Carbon Dioxide 27 (23-29) mEq/L BUN 24 H (8-23) mg/dL Creatinine 3.81 H (0.70-1.30) mg/dL Est GFR ( Amer) 20 L (> 60) Est GFR (Non-Af Amer) 16 L (> 60) BUN/Creatinine Ratio 6 (6-26) Calcium 8.9 (8.6-10.3) mg/dL - Radiology Data Radiology results reviewed: Yes I reviewed the patient's radiology results. Foot X-Ray 12/10/18 02:58 IMPRESSION: No radiographic evidence of osteomyelitis. If there is persistent clinical concern, MRI with and without contrast can be performed. D/ / Alexi Leal MD / Alexi Leal MD Interpreting Provider: Alexi Leal MD S.B.ACalderonRCalderon - S.B.AJeffrey Situation: Demographics Background: Presenting Complaint Assessment: Vital Signs, Course and respsone to treatment, Patient/Family Expectation Recommendation: Barrier(s) to disposition, Recommendation based on pending studies, treatments, or consults S.B.A.R. Report Given to: Dr. Greenberg SCalderonBCalderonAJeffrey Repor Time: 05:01 Attestation Statement - Attestation Attestation: Dr. Sidhu note: Patient seen in conjunction with resident Dr. Jesus Green. Please see his charting for complete documentation. I spent fnoa-[id number]-nnic time with the patient and I agree with the patient's treatment and disposition. Hyperglycemia noted; insulin ordered; admitted in improved condition
[2018-12-10 03:50] LABS: Basophils % 0.3 %; Eosinophils % 0.5 %; Hematocrit 31.8 % (37.5-50.1); Hemoglobin 10.6 g/dL (12.9-16.9); Immature Granulocytes % 0.5 % (0-4); Lymphocytes # 0.5 K/mcL (0.6-4.6); Lymphocytes % 12.7 %; Mean Corpuscular HGB Conc 33.3 g/dL (31.6-35.5); Mean Corpuscular Hemoglobin 30.5 pg (28.0-33.3); Mean Corpuscular Volume 91.6 fL (83.0-100.0); Mean Platelet Volume 11.8 fL (9.4-12.4); Monocytes # 0.4 K/mcL (0.0-1.3); Monocytes % 11.4 %; Neutrophils # 2.8 K/mcL (1.6-8.9); Red Blood Count 3.47 M/mcL (4.19-5.50); Red Cell Distribution Width 13.7 % (11.5-14.5); Segmented Neutrophils % 74.6 %
[2018-12-10 03:51] LABS: Platelet Count 88 K/mcL (140-400)
[2018-12-10 05:07] LABS: BUN/Creatinine Ratio 6 (6-26); Blood Urea Nitrogen 24 mg/dL (8-23); Calcium 8.9 mg/dL (8.6-10.3); Carbon Dioxide 27 mEq/L (23-29); Chloride 92 mEq/L (98-107); Potassium 4.5 mEq/L (3.5-5.1); Sodium 129 mEq/L (136-145); eGFR For Non-African Americans 16 (> 60)
[2018-12-10] MEDS ORDERED: 0.9 % Sodium Chloride 500 ML IVC ONE (05:13)
[2018-12-10] MEDS ORDERED: Insulin Human Regular 10 UNIT in 0.9 % Sodium Chloride 10 ML IV ONE ×2 (05:18→09:19)
[2018-12-10] MEDS ORDERED: *HR* OxyCODONE/APAP 5/325 TABLET PO ONE (05:38)
[2018-12-10 06:17] LABS: Glucose > 2400 mg/dL (70-105)
--- NOTE | 2018-12-10 07:29 | Internal Med History&Physical ---
<Abigail Perdomo - Last Filed: 12/10/18 13:38> Date of Encounter: 12/10/18 Time of Encounter: 10:15 Internal Medicine - H&P: HPI Admitted From: Emergency Dept Plans for Post Hospital Care: Home History of present illness: Mr. Velarde is a 63 year old male Internal Medicine - H&P: Meds Calcium Acetate [Phos-LO] 1,334 mg PO TIDWM 10/04/16 [History] Pantoprazole Sodium [Protonix] 40 mg PO DAILY 10/04/16 [History] Ranitidine HCl [Heartburn Relief] 150 mg PO DAILY 10/04/16 [History] Insulin ASPART [NovoLOG] 45 unit SQ BIDWM 04/25/17 [History] Clopidogrel [Plavix] 75 mg PO DAILY #30 tablet 04/28/17 [Rx] Insulin Glargine,Hum.rec.anlog [Lantus Solostar] 90 unit SQ BID 01/29/18 [History] Renal Vitamin [Renal Caps Softgel] 1 mg PO DAILY 01/29/18 [History] OxyCODONE Immed Rel [Roxicodone 5 MG] 10 mg PO Q6HR PRN 04/27/18 [History] Isosorbide MONOnitrate (24 HR) [Imdur] 30 mg PO DAILY tab.er.24h 04/29/18 [Rx] Metoprolol [Lopressor] 12.5 mg PO BID tablet 04/29/18 [Rx] Atorvastatin Calcium [Lipitor] 40 mg PO HS 12/10/18 [History] Buspirone HCl [Buspar] 5 mg PO TID 12/10/18 [History] Cetirizine HCl [24Hour Allergy] 5 mg PO DAILY 12/10/18 [History] Furosemide [Lasix] 60 mg PO BID 12/10/18 [History] Gabapentin [Neurontin] 300 mg PO BID 12/10/18 [History] Levothyroxine [Synthroid] 25 mcg PO QAM 12/10/18 [History] Melatonin/Pyridoxine HCl (B6) [Melatonin 3 mg Tablet] 3 mg PO HS PRN 12/10/18 [History] Paroxetine [Paxil] 30 mg PO QAM 12/10/18 [History] Allergy/AdvReac Type Severity Reaction Status Date / Time codeine Allergy Unknown Hives Verified 05/29/18 22:26 methadone [Methadone] Allergy Unknown Rash Verified 05/29/18 22:26 Penicillins [PCN] Allergy Unknown Rash Verified 05/29/18 22:26 promethazine [From Phenergan] Allergy Unknown Hives Verified 05/29/18 22:26 trazodone Allergy Unknown Itching Verified 05/29/18 22:26 All Systems PM: A 10-system review of systems was performed and is negative for pertinent findings except as documented above in the HPI. - Constitutional Vitals: Temp Pulse Resp BP Pulse Ox 98.1 F 81 18 167/76 97 12/10/18 13:26 12/10/18 13:26 12/10/18 13:26 12/10/18 13:26 12/10/18 13:26 Internal Med - H&P Results - Labs CBC & Chem 7: 12/10/18 03:34 12/10/18 08:27 Labs: Short CBC 12/10/18 Range/Units 03:34 WBC 3.8 L (4.3-11.1) K/mcL Hgb 10.6 L (12.9-16.9) g/dL Hct 31.8 L (37.5-50.1) % Plt Count 88 L (140-400) K/mcL Neutrophils # 2.8 (1.6-8.9) K/mcL BMP 12/10/18 12/10/18 03:34 08:27 Sodium 129 L 129 L Potassium 4.5 4.5 Chloride 92 L 97 L Carbon Dioxide 27 22 L BUN 24 H 28 H Creatinine 3.81 H 3.82 H Glucose > 2400 H* 640 H* Calcium 8.9 8.6 - Impressions ITS Impressions Foot X-Ray 12/10/18 02:58 IMPRESSION: No radiographic evidence of osteomyelitis. If there is persistent clinical concern, MRI with and without contrast can be performed. 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 coronary artery Current Visit: No Status: Chronic Qualifiers: [place] vs. transplanted heart: [place] heart Associated angina: with unstable angina Qualified Code(s): I25.110 - Atherosclerotic heart disease of [place] coronary artery with unstable angina pectoris (5) HLD (hyperlipidemia) Current Visit: No Status: Chronic Qualifiers: Hyperlipidemia type: pure hypercholesterolemia Qualified Code(s): E78.00 - Pure hypercholesterolemia, unspecified; E78.0 - Pure hypercholesterolemia (6) Diabetic ketoacidosis Current Visit: No Status: Acute Qualifiers: Diabetes mellitus type: type 2 Diabetes mellitus complication detail: without coma Qualified Code(s): E11.10 - Type 2 diabetes mellitus with ketoacidosis without coma (7) ESRD (end stage renal disease) on dialysis Current Visit: Yes Status: Chronic (8) DVT prophylaxis Current Visit: Yes Status: Acute (9) Diabetic foot ulcer Current Visit: Yes Status: Acute Qualifiers: Diabetic foot ulcer location: midfoot Diabetes mellitus type: type 2 L aterality: left Non-pressure ulcer stage: unspecified non-pressure ulcer stage Qualified Code(s): E11.621 - Type 2 diabetes mellitus with foot ulcer; L97.429 - Non-pressure chronic ulcer of left heel and midfoot with unspecified severity - Time Spent With Patient Total time spent is greater than 50% in coordination of care (as documented) at patient's floor/unit and/or counseling patient: - Attending Attestation I saw evaluated and examined this patient and my medical decision-making was reviewed with the Resident Physician, Reese Guardado. I agree with the documented findings, disposition and treatment plan as described except to any changes set forth below. We independently had [id number] contact with the patient. Patient with a history of diabetes, end-stage renal disease on hemodialysis presented to the ER with complaints of ulcer on left foot that was initially found on Friday and has progressively worsened with erythema and swelling on the lateral aspect of the dorsum of the left foot. Patient denies any fevers or chills. He has diabetic neuropathy with associated numbness in his feet. He denies any pain. No nausea or vomiting. He reports that he ate dinner last night and took insulin. His blood sugars are very labile. He is had very high blood sugars over the past week and had one episode of hypoglycemia with blood sugar going as low as 52. In the ER, his blood sugar was initially reported as greater than 2400. A recheck after he received 10 units of insulin showed the blood sugar to be 640. Patient was dialyzed yesterday morning. He gets dialysis on Friday schedule General: Patient is alert, no acute distress, oriented x 3 Head: atraumatic, normocephalic, ENT: Mucous membranes moist Eye: normal appearance, PERRL, no scleral icterus, no conjunctival injection Neck: normal inspection, trachea midline, full ROM, no carotid bruits Chest: normal inspection, symmetric chest rise Respiratory: Good respiratory effort. Normal breath sounds. No wheezing or crackles. Cardiovascular: Regular rate and rhythm. s1 and s2 normal No clicks, rubs, gallops, or murmurs. No pedal edema Abdomen: Abdomen is soft, nontender. Bowel sounds are present Musculoskeletal: Spontaneously moving all extremities , status post left great toe amputation. Left foot currently bandaged. Skin: warm, dry, intact. Neuro: Alert oriented x 3 normal cranial nerves, no focal deficits Psych: Patient's affect is normal Diabetic ketoacidosis: Patient has elevated blood sugars with an anion gap. Will admit for diabetic ketoacidosis. Place patient on DKA protocol with IV insulin. Monitor blood sugars closely. Gentle IV hydration for now. Diabetic foot ulcer with surrounding cellulitis: ESR and CRP is slightly elevated. Follow podiatry recommendations. Continue antibiotics. Follow culture results. End-stage renal disease on hemodialysis: Nephrology has been consulted. Continue dialysis per usual schedule. Coronary artery disease: Continue Plavix, statin and metoprolol. No chest pain at this time. DVT prophylaxis with SCDs. Patient has chronic thrombocytopenia. Will avoid heparin products for now. <Reese Guardado - Last Filed: 12/10/18 16:59> Date of Encounter: 12/10/18 Time of Encounter: 07:28 Internal Medicine - H&P: HPI Chief complaint: [place] ulcer Admitted From: Emergency Dept Plans for Post Hospital Care: Home History of present illness: Mr. Velarde is a 63 [facility] with a past medical history of left great toe amputation, DM, CAD, HTN, HLD, and ESRD with HD MWF who presented complaining of left foot ulcer, redness, and swelling getting worse for the past 4 days. Patient reports associated cold-like symptoms with runny nose and cough. In the ED, patient's BMP revealed a glucose level > 2400 and he was found to be in DKA. Patient was started on insulin drip and transferred to ICU stepdown unit. Patient received one time dose of vancomycin and cefepime in ED. Awaiting wound culture status post podiatry debridement. Past Med Surg Social Fam HX - Past Medical History Medical history: coronary artery disease, diabetes, dialysis, GERD, hyperlipidemia, hypertension, myocardial infarction, renal disease, other Additional medical history: C1,2 L 5,6 arthritis , "nerve damage " Psychiatric history: anxiety, depression - Past Surgical History Surgical History: angioplasty/stent, coronary bypass (CABG) (2v CABG in 1998, redo 3v CABG in 2002), orthopedic, other (Surgery on right knee x4, scope on left knee x1), other (Amputation of left great toe, re-attachment of right hand after accident at work) Additional surgical history: cardia stents 04/2018 , cabg 99 and 03 , Right hand re attached previous work accident, toe left great toe, left 3rd finger unable to extend finger for a couple years . multiple knee scopes ,arthritis - Social History Smoking Status: Never smoker Smokeless Tobacco Status: No Alcohol use: none Drug use: none - Family History Father Adopted: No Family Member Ethnicity: Non- Living Status: Still Living Hx Family Cardiac Disorders: Yes (Coronary artery disease?) Hx Family Respiratory Disorders: No Hx Family Cancer: Yes Hx Family GI Disorders: No Hx Family Endocrine Disorder: Yes (brothers, sister) Hx Family Neuromuscular Disorders: No Hx Family Neurologic Disorders: No Hx Family HEENT Disorders: No Hx Family Autoimmune Disorders: No Brother Family Member Ethnicity: Non- Living Status: Still Living Hx Family Cardiac Disorders: Yes ([place]) Sister Family Member Ethnicity: Non- Living Status: Still Living Hx Family Endocrine Disorder: Yes (DM) Mother Adopted: No Family Member Ethnicity: Non- Living Status: Still Living Hx Family Cardiac Disorders: Yes ([place], Pacemaker) Hx Family Respiratory Disorders: Yes (COPD) Hx Family Cancer: Yes Hx Family GI Disorders: No Hx Family Endocrine Disorder: Yes (DM) Hx Family Neuromuscular Disorders: No Hx Family Neurologic Disorders: No Hx Family HEENT Disorders: No Hx Family Autoimmune Disorders: No All Systems PM: A 10-system review of systems was performed and is negative for pertinent findings except as documented above in the HPI. - Constitutional Constitutional: no chills, no fever(s), no falls, no weight gain, no weight loss - EENT Eyes: no blurry vision, no diplopia Nose, mouth and throat: dry mouth, hoarseness, nasal congestion, post-nasal drip, no nasal discharge, no nasal obstruction, no sinus pain, no sinus pressure, no sore throat - Cardiovascular Cardiovascular ROS IM: no chest pain, no dyspnea, no palpitations - Respiratory Respiratory: no dyspnea, no wheezing - Gastrointestinal Gastrointestinal: no abdominal pain, no diarrhea, no heartburn, no nausea, no vomiting - Genitourinary Genitourinary ROS male: no dysuria, no hematuria, no urinary frequency, no urinary urgency - Musculoskeletal Musculoskeletal ROS IM: no arthralgias, no joint swelling, no limited range of motion, no myalgias, no numbness, no tingling - Integumentary Integumentary IM: erythema, new lesions, skin ulcer - Neurological Neurological ROS: abnormal gait, no numbness, no tingling, no weakness - Psychiatric Psychiatric: no anxiety, no depression - Endocrine Endocrine IM: no fatigue, no polydipsia, no polyphagia, no polyuria - Constitutional Vitals: Temp Pulse Resp BP Pulse Ox 97.6 F 78 16 149/63 98 12/10/18 01:39 12/10/18 06:41 12/10/18 06:41 12/10/18 06:41 12/10/18 06:41 General appearance: Present: cooperative, A&O X 3, no acute distress Exam: awake - Head Head exam: Present: atraumatic, normocephalic - Eye Eye exam: Present: EOMI, PERRL, conjuntiva pink, sclera anicteric Pupils: Present: PERRL - ENT ENT exam: Present: mucous membranes dry, normal oropharynx - Neck Neck exam general surgery: Present: supple, trachea midline. Absent: lymphadenopathy - Respiratory Respiratory exam: Present: CTAB. Absent: accessory muscle use, rales, rhonchi, wheezes - Cardiovascular Cardiovascular exam: Present: RRR, +S1, +S2. Absent: diastolic murmur, gallop, rubs, systolic murmur - GI/Abdominal GI/Abdominal exam: Present: normal bowel sounds, soft, no peritoneal signs. Absent: distended, tenderness - Extremities Exam Extremities exam: Present: warm, radial pulses palpable and symmetrical. Absent: calf tenderness, cyanotic, normal inspection (1 cm left foot ulcer with minimal yellow purulent discharge at the base of the fifth toe with proximal streaking on the dorsal surface, erythema border outlined with skin marker), pedal edema - Neurological Exam Neurological exam: Present: alert, CN II-XII intact, oriented X3, no focal deficits. Absent: pronater drift, facial droop, speech deficit - Psychiatric Psychiatric exam: Present: normal affect, normal mood - Skin Skin exam: Present: dry, erythema (1 cm left foot ulcer with minimal yellow purulent discharge at the base of the fifth toe with proximal streaking on the dorsal surface, erythema border outlined with skin marker) Internal Med - H&P Results - Labs CBC & Chem 7: 12/10/18 03:34 12/10/18 14:51 Labs: Short CBC 12/10/18 Range/Units 03:34 WBC 3.8 L (4.3-11.1) K/mcL Hgb 10.6 L (12.9-16.9) g/dL Hct 31.8 L (37.5-50.1) % Plt Count 88 L (140-400) K/mcL Neutrophils # 2.8 (1.6-8.9) K/mcL BMP 12/10/18 03:34 Sodium 129 L Potassium 4.5 Chloride 92 L Carbon Dioxide 27 BUN 24 H Creatinine 3.81 H Glucose > 2400 H* Calcium 8.9 - Pulse Oximetry Interpretation Digit-Finger O2 Sat by Pulse Oximetry: 97 (on ambient air) - Impressions ITS Impressions Foot X-Ray 12/10/18 02:58 IMPRESSION: No radiographic evidence of osteomyelitis. If there is persistent clinical concern, MRI with and without contrast can be performed. D/ / Alexi Leal MD / Alexi Leal MD Interpreting Provider: Alexi Leal MD - Assessment and plan (1) Diabetic foot ulcer Current Visit: Yes Status: Acute Assessment and plan: Patient presented with left foot ulcer with purulent drainage and surrounding erythema Patient received vancomycin and cefepime 1 in the ED. Blood cultures pending X-ray revealed no radiographic evidence of osteomyelitis. ESR 73, CRP level 28. Low likelihood for osteomyelitis. No MRI indicated. Continue pain control. Continue empiric antibiotics for now until podiatry obtains deep wound cultures during wound debridement Podiatry consulted, anticipate wound debridement Qualifiers: Diabetic foot ulcer location: midfoot Diabetes mellitus type: type 2 Laterality: left Non-pressure ulcer stage: unspecified non-pressure ulcer sta ge Qualified Code(s): E11.621 - Type 2 diabetes mellitus with foot ulcer; L97.429 - Non-pressure chronic ulcer of left heel and midfoot with unspecified severity (2) Diabetic ketoacidosis Current Visit: Yes Status: Resolved Assessment and plan: Corrected sodium for hyperglycemia anion gap 19 Initial blood glucose >2400, repeat level 640 Started on DKA protocol, Insulin ggt, BMP q4h, potassium replacement prn Repeat Anion gap 9, insulin drip discontinued 1 hour after starting basal Levemir. Continue Accu-Cheks and sliding scale insulin ACHS Continue close monitoring Qualifiers: Diabetes mellitus type: type 2 Diabetes mellitus complication detail: without coma Qualified Code(s): E11.10 - Type 2 diabetes mellitus with ketoacidosis without coma (3) ESRD (end stage renal disease) on dialysis Current Visit: Yes Status: Chronic Assessment and plan: End-stage renal disease on hemodialysis Friday, Friday, Friday Avoid nephrotoxins Nephrology consulted. (4) Type 2 diabetes mellitus with diabetic chronic kidney disease Current Visit: No Status: Chronic Assessment and plan: Hemoglobin A1c 11.8 BNP revealed hyperglycemia Continue Accu-Cheks, Levemir and sliding scale insulin Qualifiers: 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 insulin use: with buttermaker continuous churn use Chronic kidney disease stage: on chronic dialysis Qualified Code(s): E11.22 - Type 2 diabetes mellitus with diabetic chronic kidney disease; N18.6 - End stage renal disease; Z79.4 - residential (current) use of insulin; Z99.2 - Dependence on renal dialysis (5) Diastolic CHF, chronic Current Visit: No Status: Chronic Assessment and plan: Echo 01/30/18 revealed LVEF 55%, Moderate left ventricular diastolic dysfunction, mild concentric left ventricular hypertrophy, atypical septal motion consistent with post-operative status, mildly dilated left atrium, moderate pulmonary hypertension Monitor daily weights and input/output Continue gentle hydration, monitor for signs of fluid overload (6) CAD (coronary artery disease), [place] coronary artery Current Visit: No Status: Chronic Assessment and plan: Continue home meds. Continue monitoring. Qualifiers: [place] vs. transplanted heart: [place] heart Associated angina: with unstable angina Qualified Code(s): I25.110 - Atherosclerotic heart disease of [place] coronary artery with unstable angina pectoris (7) Anemia Current Visit: No Status: Chronic Assessment and plan: Hemoglobin at baseline, no signs of active bleeding. Continue monitoring. Qualifiers: Anemia type: due to chronic kidney disease Chronic kidney disease stage: on chronic dialysis Qualified Code(s): N18.6 - End stage renal disease; D63.1 - Anemia in chronic kidney disease; Z99.2 - Dependence on renal dialysis (8) HLD (hyperlipidemia) Current Visit: No Status: Chronic Assessment and plan: Continue home meds Qualifiers: Hyperlipidemia type: pure hypercholesterolemia Qualified Code(s): E78.00 - Pure hypercholesterolemia, unspecified; E78.0 - Pure hypercholesterolemia (9) Thrombocytopenia Current Visit: No Status: Acute Assessment and plan: Chronic thrombocytopenia, no signs of bleeding. Avoid heparin. (10) DVT prophylaxis Current Visit: Yes Status: Acute Assessment and plan: SCDs - Time Spent With Patient Total time spent is greater than 50% in coordination of care (as documented) at patient's floor/unit and/or counseling patient:
[2018-12-10] MEDS ORDERED: *HR* Dextrose 50 % in Water (Syg) 50 ML SYRINGE IVP PRN (08:31)
[2018-12-10] MEDS ORDERED: D5% in Water 1,000 ML IVC PRN (08:31)
[2018-12-10] MEDS ORDERED: Acetaminophen 325 MG TABLET PO PRN (08:31)
[2018-12-10] MEDS ORDERED: Dextrose Gel 15 GM/37.5 ML TUBE PO PRN ×2 (08:31)
[2018-12-10] MEDS ORDERED: Ondansetron 4 MG/2 ML VIAL IVP PRN (08:31)
[2018-12-10] MEDS ORDERED: Naloxone 0.4 MG/ML INJ IVP PRN (08:31)
[2018-12-10] MEDS ORDERED: Insulin LISPRO 300 UNITS/3 ML VIAL SQ SCH ×3 (08:41→21:00)
[2018-12-10] MEDS ORDERED: 0.9 % Sodium Chloride 1,000 ML IVC SCH (08:45)
[2018-12-10 09:07] LABS: Calcium 8.6 mg/dL (8.6-10.3); Potassium 4.5 mEq/L (3.5-5.1)
[2018-12-10] MEDS ORDERED: Insulin DETEMIR 100 UNIT/ML X5UNITS SQ SCH (09:30)
[2018-12-10] MEDS ORDERED: D5% in 0.45% NACL w KCl 20 MEQ/1,000 ML MLS IVC PRN (09:36)
[2018-12-10] MEDS ORDERED: Insulin Human Regular 100 UNIT in 0.9 % Sodium Chloride 100 ML IVC SCH (09:45)
[2018-12-10 09:58] LABS: Estimated Average Glucose 292 mg/dl; Hemoglobin A1C 11.8 %
[2018-12-10] MEDS: 0.9 % Sodium Chloride 1,000 ML IVC SCH ×2 (10:20→11:16)
[2018-12-10 10:21] LABS: Magnesium 1.9 mg/dL (1.6-2.6)
--- NOTE | 2018-12-10 10:37 | Nephrology Consult Note ---
Addendum entered and electronically signed by Fantasma Rubio MD 12/10/18 22:57: I examined this patient and discussed the medical decision-making with JONA Diaz. I agree with the documented findings, disposition and treatment plan as described except to the extent set forth below. Patient with no need for dialysis today. Plan to continue with routine dialysis Friday. Original Note: Date of Encounter: 12/10/18 Time of Encounter: 10:27 Assessment and Plan (1) ESRD (end stage renal disease) on dialysis Current Visit: Yes Status: Chronic Current regimen is MWF with Dr. Sales Plan for HD tomorrow. Renal diet Renal vitamins Strict I/O Avoid nephrotoxins and renal dose all medications. (2) HHNC (hyperglycemic hyperosmolar nonketotic coma) Current Visit: Yes Status: Acute Continues to be on insulin drip. Per primary. (3) Diabetic foot ulcer Current Visit: Yes Status: Acute Recommend podiatry consult. Qualifiers: Diabetic foot ulcer location: midfoot Diabetes mellitus type: type 2 Laterality: left Non-pressure ulcer stage: unspecified non-pressure ulcer stage Qualified Code(s): E11.621 - Type 2 diabetes mellitus with foot ulcer; L97.429 - Non-pressure chronic ulcer of left heel and midfoot with unspecified severity History of Present Illness - Reason for Consult Consult date: 12/10/18 end stage renal disease Requesting physician: Dominick Greenberg - Chief Complaint ulcer on left food - History of Present Illness Mr. Velarde is a 63 year old male who presented to ED last night with a left foot ulcer. PMH: CAD, DM, HLD, HTN and [place]. ESRD MWF with Dr. Sales in [place]. Last HD treatment was Friday without complication (per patient). Pt reports he runs 3 hours and 15 mins and his EDW is 93.3 kg. He has a (+) (+) fistula to LUE. [facility], but their ED is not open then. He went decided to go back home and not come to [facility] ED. He was referred to wound care, but the appointment was cancelled because it was not approved by [place] at the time. He is not currently on any antibiotics. He denies tobacco use, etoh or illicit drug use. [facility] any specialists well managed inpatient dialysis, will plan for hemodialysis tomorrow. Past Med Surg Social Fam HX - Past Medical History Medical history: coronary artery disease, diabetes, dialysis, GERD, hyperlipidemia, hypertension, myocardial infarction, renal disease, other Additional medical history: C1,2 L 5,6 arthritis , "nerve damage " Psychiatric history: anxiety, depression - Past Surgical History Surgical History: angioplasty/stent, coronary bypass (CABG) (2v CABG in 1998, redo 3v CABG in 2002), orthopedic, other (Surgery on right knee x4, scope on left knee x1), other (Amputation of left great toe, re-attachment of right hand after accident at work) Additional surgical history: cardia stents 04/2018 , cabg 99 and 03 , Right hand re attached previous work accident, toe left great toe, left 3rd finger unable to extend finger for a couple years . multiple knee scopes ,arthritis - Social History Smoking Status: Never smoker Smokeless Tobacco Status: No Alcohol use: none Drug use: none - Family History Father Adopted: No Family Member Ethnicity: Non- Living Status: Still Living Hx Family Cardiac Disorders: Yes (Coronary artery disease?) Hx Family Respiratory Disorders: No Hx Family Cancer: Yes Hx Family GI Disorders: No Hx Family Endocrine Disorder: Yes (brothers, sister) Hx Family Neuromuscular Disorders: No Hx Family Neurologic Disorders: No Hx Family HEENT Disorders: No Hx Family Autoimmune Disorders: No Brother Family Member Ethnicity: Non- Living Status: Still Living Hx Family Cardiac Disorders: Yes ([place]) Sister Family Member Ethnicity: Non- Living Status: Still Living Hx Family Endocrine Disorder: Yes ([place]) Mother Adopted: No Family Member Ethnicity: Non- Living Status: Still Living Hx Family Cardiac Disorders: Yes ([place], Pacemaker) Hx Family Respiratory Disorders: Yes (COPD) Hx Family Cancer: Yes Hx Family GI Disorders: No Hx Family Endocrine Disorder: Yes (DM) Hx Family Neuromuscular Disorders: No Hx Family Neurologic Disorders: No Hx Family HEENT Disorders: No Hx Family Autoimmune Disorders: No Medications and Allergies Calcium Acetate [Phos-LO] 1,334 mg PO TIDWM 10/04/16 [History] Pantoprazole Sodium [Protonix] 40 mg PO DAILY 10/04/16 [History] Ranitidine HCl [Heartburn Relief] 150 mg PO DAILY 10/04/16 [History] Insulin ASPART [NovoLOG] 45 unit SQ BIDWM 04/25/17 [History] Clopidogrel [Plavix] 75 mg PO DAILY #30 tablet 04/28/17 [Rx] Insulin Glargine,Hum.rec.anlog [Lantus Solostar] 90 unit SQ BID 01/29/18 [History] Renal Vitamin [Renal Caps Softgel] 1 mg PO DAILY 01/29/18 [History] OxyCODONE Immed Rel [Roxicodone 5 MG] 10 mg PO Q6HR PRN 04/27/18 [History] Isosorbide MONOnitrate (24 HR) [Imdur] 30 mg PO DAILY tab.er.24h 04/29/18 [Rx] Metoprolol [Lopressor] 12.5 mg PO BID tablet 04/29/18 [Rx] Atorvastatin Calcium [Lipitor] 40 mg PO HS 12/10/18 [History] Buspirone HCl [Buspar] 5 mg PO TID 12/10/18 [History] Cetirizine HCl [24Hour Allergy] 5 mg PO DAILY 12/10/18 [History] Furosemide [Lasix] 60 mg PO BID 12/10/18 [History] Gabapentin [Neurontin] 300 mg PO BID 12/10/18 [History] Levothyroxine [Synthroid] 25 mcg PO QAM 12/10/18 [History] Melatonin/Pyridoxine HCl (B6) [Melatonin 3 mg Tablet] 3 mg PO HS PRN 12/10/18 [History] Paroxetine [Paxil] 30 mg PO QAM 12/10/18 [History] Allergy/AdvReac Type Severity Reaction Status Date / Time codeine Allergy Unknown Hives Verified 05/29/18 22:26 methadone [Methadone] Allergy Unknown Rash Verified 05/29/18 22:26 Penicillins [PCN] Allergy Unknown Rash Verified 05/29/18 22:26 promethazine [From Phenergan] Allergy Unknown Hives Verified 05/29/18 22:26 trazodone Allergy Unknown Itching Verified 05/29/18 22:26 Review of Systems All Systems review (narrative): The remainder of the systems are negative. Constitutional: no chills, no fatigue, no fever(s) Cardiovascular: no chest pain, no dyspnea, no edema, no orthopnea, no palpitations Respiratory: no cough Gastrointestinal: no abdominal pain, no diarrhea, no nausea, no vomiting Exam - Vital Signs Vital signs: Initial Vital Signs Temp Pulse Resp BP Pulse Ox 97.6 F 83 16 157/79 99 12/10/18 01:39 12/10/18 01:39 12/10/18 01:39 12/10/18 01:39 12/10/18 01:39 Vital Signs - Last 8 Hours Pulse Resp BP Pulse Ox 12/10/18 07:40 78 16 152/59 12/10/18 06:41 78 16 149/63 98 12/10/18 05:10 79 16 142/77 97 12/10/18 04:14 78 16 147/58 98 Intake and Output 12/09/18 12/10/18 12/10/18 23:59 07:59 15:59 Intake Total 770.1 / 770.1 Balance 770.1 / 770.1 Intake: IV Fluids 770.1 / 770.1 HumuLIN R 10 UNIT In Normal 10.1 / 10.1 Saline Flush 10 ML @ 1212 mls/ hr IV ONCE ONE Rx#:[id number] 0.9 % Sodium Chloride 500 ML @ 500 / 500 999 mls/hr IVC .Q31M ONE Rx#: [id number] Maxipime 1,000 MG In Water for 10 / 10 inj. (sterile) 10 ML @ 300 mls/ hr IVP ONCE ONE Rx#:[id number] Vancocin 1,500 MG In 0.9 % 250 / 250 Sodium Chloride 250 ML @ 167 mls/hr IVPB ONCE ONE Rx#: [id number] Other: Weight 95.617 kg Blood Glucose* 640 Patient Weight 12/10/18 23:59 Weight 95.617 kg - General Appearance General appearance: well-developed, well-nourished EENT: ATNC, hearing intact, vision intact Neck: supple Respiratory: clear Cardiology: no edema, normal S1, normal S2 - Dialysis Access Dialysis Vascular Access: Arteriovenous Fistula thrill: Yes bruit: Yes Gastrointestinal: normoactive bowel sounds, no tenderness, no guarding Integumentary: no rash, warm and dry Neurologic: alert and oriented x3 Musculoskeletal: no deformities, no erythema Additional Comments: Wound DRSG C/D/I to Left foot. Psychiatric: mood/affect appropriate, cooperative Results - Lab Results 12/10/18 03:34 12/10/18 08:27 Most recent lab results Calcium 8.6 mg/dL (8.6-10.3) 12/10/18 08:27 Magnesium 1.9 mg/dL (1.6-2.6) 12/10/18 08:27 Consult Discharge Plan - Plan [facility]errals: [facility] [Primary Care Provider] -
--- NOTE | 2018-12-10 13:15 | Podiatry Consult Note ---
Date of Encounter: 12/10/18 Time of Encounter: 12:50 Assessment and Plan (1) Diabetic foot ulcer Current visit: Yes Status: Acute Assessment: Partial thickness diabetic ulcer noted to left submetatarsal #5. Does not probe to bone. Erythema and edema noted, streaking from digit #5 left foot to midfoot. Demarcation line noted. Does not extend past line. Non-palpable pulses DP/PT left foot CFT <3 seconds left foot Left foot warm to touch ESR 73 CRP 28 Blood cultures pending Received one dose of IV vanc. WBC 3.8 Blood glucose level on admission >2400 Foot xray negative for OM HGB A1C 11.8 XR/XR foot 3V LT IMPRESSION: No radiographic evidence of osteomyelitis. If there is persistent clinical concern, MRI with and without contrast can be performed. D/ / Alexi Leal MD / Alexi Leal MD Plan: Painted ulceration with betadine. Covered with 4x4 dry gauze and kerlex ABIs ordered with TCPO2 pressures No indication for MRI at this time. Patient is ESRD and is not a good candidate for contrast Tight glycemic control to promote wound healing. Primary managing Will continue to follow Qualifiers: Diabetic foot ulcer location: other Diabetes mellitus type: type 2 Laterality: left Non-pressure ulcer stage: unspecified non-pressure ulcer stage Qualified Code(s): E11.621 - Type 2 diabetes mellitus with foot ulcer; L97.529 - Non-pressure chronic ulcer of other part of left foot with unspecified severity History of Present Illness HPI: Mr. Velarde is a 63 year old male who presented to the ED last evening for left foot ulcer. Patient was subsequently found to have elevated blood glucose levels reading >2400. [facility] normally receives care [facility]. PMH of CAD, DM, HLD, HTN, CABG, left hallux amputation, ESRD on dialysis, and [place]. Patient denies smoking or illicit drug use. Reports drinking a glass of wine once a month. Patient was seen once in podiatry clinic by Dr. Shelton in 2016 for abrasion of right foot. Patient states has had ulcer for a while. Daughter has been taking care of this. Patient showed a picture of wound from a few days ago that was macerated. Today wound appears to be dry with maceration noted around edges. Erythema noted with streaking extending to midfoot. Xray completed in ER does not show evidence of OM. Patient denies having vascular studies completed. Patient states his previous left hallux amputation was d/t an ingrown nail that became infected. Denies any pain. Denies any fevers, nausea, vomiting, or diarrhea. Denies any chest pain, shortness of breath, or calf pain. Past Med Surg Social Fam HX - Past Medical History Medical history: coronary artery disease, diabetes, dialysis, GERD, hyperlipidemia, hypertension, myocardial infarction, renal disease, other Additional medical history: C1,2 L 5,6 arthritis , "nerve damage " Psychiatric history: anxiety, depression - Past Surgical History Surgical History: angioplasty/stent, coronary bypass (CABG) (2v CABG in 1998, redo 3v CABG in 2002), orthopedic, other (Surgery on right knee x4, scope on left knee x1), other (Amputation of left great toe, re-attachment of right hand after accident at work) Additional surgical history: cardia stents 04/2018 , cabg 99 and 03 , Right hand re attached previous work accident, toe left great toe, left 3rd finger unable to extend finger for a couple years . multiple knee scopes ,arthritis - Social History Smoking Status: Never smoker Smokeless Tobacco Status: No Alcohol use: none Drug use: none - Family History Brother Family Member Ethnicity: Non- Living Status: Still Living Hx Family Cardiac Disorders: Yes ([place]) Father Adopted: No Family Member Ethnicity: Non- Living Status: Still Living Hx Family Cardiac Disorders: Yes (Coronary artery disease?) Hx Family Respiratory Disorders: No Hx Family Cancer: Yes Hx Family GI Disorders: No Hx Family Endocrine Disorder: Yes (brothers, sister) Hx Family Neuromuscular Disorders: No Hx Family Neurologic Disorders: No Hx Family HEENT Disorders: No Hx Family Autoimmune Disorders: No Mother Adopted: No Family Member Ethnicity: Non- Living Status: Still Living Hx Family Cardiac Disorders: Yes ([place], Pacemaker) Hx Family Respiratory Disorders: Yes (COPD) Hx Family Cancer: Yes Hx Family GI Disorders: No Hx Family Endocrine Disorder: Yes (DM) Hx Family Neuromuscular Disorders: No Hx Family Neurologic Disorders: No Hx Family HEENT Disorders: No Hx Family Autoimmune Disorders: No Sister Family Member Ethnicity: Non- Living Status: Still Living Hx Family Endocrine Disorder: Yes (DM) Medications and Allergies RX: Calcium Acetate [Phos-LO] 1,334 mg PO TIDWM 10/04/16 [History] RX: Pantoprazole Sodium [Protonix] 40 mg PO DAILY 10/04/16 [History] RX: Ranitidine HCl [Heartburn Relief] 150 mg PO DAILY 10/04/16 [History] RX: Insulin ASPART [NovoLOG] 45 unit SQ BIDWM 04/25/17 [History] RX: Clopidogrel [Plavix] 75 mg PO DAILY #30 tablet 04/28/17 [Rx] RX: Insulin Glargine,Hum.rec.anlog [Lantus Solostar] 90 unit SQ BID 01/29/18 [History] RX: Renal Vitamin [Renal Caps Softgel] 1 mg PO DAILY 01/29/18 [History] RX: OxyCODONE Immed Rel [Roxicodone 5 MG] 10 mg PO Q6HR PRN 04/27/18 [History] RX: Isosorbide MONOnitrate (24 HR) [Imdur] 30 mg PO DAILY tab.er.24h 04/29/18 [Rx] RX: Metoprolol [Lopressor] 12.5 mg PO BID tablet 04/29/18 [Rx] Atorvastatin Calcium [Lipitor] 40 mg PO HS 12/10/18 [History] Buspirone HCl [Buspar] 5 mg PO TID 12/10/18 [History] Cetirizine HCl [24Hour Allergy] 5 mg PO DAILY 12/10/18 [History] Furosemide [Lasix] 60 mg PO BID 12/10/18 [History] Gabapentin [Neurontin] 300 mg PO BID 12/10/18 [History] Melatonin/Pyridoxine HCl (B6) [Melatonin 3 mg Tablet] 3 mg PO HS PRN 12/10/18 [History] RX: Levothyroxine [Synthroid] 25 mcg PO QAM 12/10/18 [History] RX: Paroxetine [Paxil] 30 mg PO QAM 12/10/18 [History] Allergy/AdvReac Type Severity Reaction Status Date / Time codeine Allergy Unknown Hives Verified 05/29/18 22:26 methadone [Methadone] Allergy Unknown Rash Verified 05/29/18 22:26 Penicillins [PCN] Allergy Unknown Rash Verified 05/29/18 22:26 promethazine [From Phenergan] Allergy Unknown Hives Verified 05/29/18 22:26 trazodone Allergy Unknown Itching Verified 05/29/18 22:26 All Systems Reviewed: The remainder of the systems were reviewed and are negative - Constitutional Constitutional: no fever(s) - Cardiovascular Cardiovascular: as per HPI, other (left foot ulcer), no leg edema - Respiratory Respiratory: no cough - Musculoskeletal Musculoskeletal: numbness, tingling Physical Exam - Constitutional Vitals: Temp Pulse Resp BP Pulse Ox 97.6 F 74 16 153/64 98 12/10/18 01:39 12/10/18 12:00 12/10/18 12:41 12/10/18 12:41 12/10/18 06:41 Exam: Constitiutional: Alert and oriented x 3. Well nourished. No acute distress noted Vascular: Non-palpable DP/PT bilaterally, CFT <3 sec to all digits, warm to warm from tibia to toes bilaterally, left hallux amputation Neurologic: Sensation to touch, normal plantar response, abnormal position sense dorsiflexion/plantar flexion Dermatologic: Ulceration noted to left submetatarsal #5, does not probe to bone, erythema and edema noted, streaking to midfoot. Musculoskeletal: 4/5 muscle strength and normal tone LLE Results - Labs Result Diagrams: 12/10/18 03:34 12/10/18 14:51 Labs: Abnormal lab results WBC 3.8 K/mcL (4.3-11.1) L 12/10/18 03:34 RBC 3.47 M/mcL (4.19-5.50) L 12/10/18 03:34 Hgb 10.6 g/dL (12.9-16.9) L 12/10/18 03:34 Hct 31.8 % (37.5-50.1) L 12/10/18 03:34 Plt Count 88 K/mcL (140-400) L 12/10/18 03:34 Lymphocytes # 0.5 K/mcL (0.6-4.6) L 12/10/18 03:34 ESR 73 mm/hr (0-10) H 12/10/18 08:00 Sodium 129 mEq/L (136-145) L 12/10/18 08:27 Chloride 97 mEq/L (98-107) L 12/10/18 08:27 Carbon Dioxide 22 mEq/L (23-29) L 12/10/18 08:27 BUN 28 mg/dL (8-23) H 12/10/18 08:27 Creatinine 3.82 mg/dL (0.70-1.30) H 12/10/18 08:27 Est GFR ( Amer) 20 (> 60) L 12/10/18 08:27 Est GFR (Non-Af Amer) 16 (> 60) L 12/10/18 08:27 Glucose 640 mg/dL (70-105) H* 12/10/18 08:27 Hemoglobin A1c 11.8 % (-5.6) H 12/10/18 08:00 Calculated Osmolality 304 (280-300) H 12/10/18 08:27 C-Reactive Protein 28 mg/L (Less than 10) H 12/10/18 08:27 H & H 12/10/18 Range/Units 03:34 Hgb 10.6 L (12.9-16.9) g/dL Hct 31.8 L (37.5-50.1) % All other labs normal. - Diagnostic results Ankle/Foot x-ray: report reviewed Consult Discharge Plan - Plan [facility]errals: [facility] [Primary Care Provider] -
[2018-12-10] MEDS: 0.9 % Sodium Chloride w KCl 20 MEQ/1,000 ML MLS IVC SCH ×3 (13:47→15:42)
[2018-12-10] MEDS ORDERED: *HR* Heparin 5,000 UNIT/ML VIAL SQ SCH (14:00)
[2018-12-10 15:19] LABS: Calcium 8.4 mg/dL (8.6-10.3); Potassium 4.2 mEq/L (3.5-5.1)
[2018-12-10] MEDS ORDERED: (Melatonin/Pyridoxine Hcl (B6) [Melatonin 3 Mg Tablet) PO PRN (16:22)
[2018-12-10] MEDS: Furosemide 20 MG TABLET PO SCH (17:04)
[2018-12-10] MEDS: Calcium Acetate 667 MG CAPSULE PO SCH (17:04)
[2018-12-10] MEDS: Insulin DETEMIR 100 UNIT/ML X5UNITS SQ SCH ×2 (17:05→17:10)
[2018-12-10] MEDS: Insulin LISPRO 300 UNITS/3 ML VIAL SQ SCH (17:05)
[2018-12-10 18:39] LABS: Calcium 8.8 mg/dL (8.6-10.3); Potassium 4.5 mEq/L (3.5-5.1)
[2018-12-10] MEDS: Loratadine 10 MG TABLET PO SCH (18:39)
[2018-12-10] MEDS: *HR* OxyCODONE Immed Rel 5 MG TABLET PO PRN (20:17)
[2018-12-10] MEDS: Gabapentin 300 MG CAPSULE PO SCH (20:18)
[2018-12-10] MEDS: Menthol 9.1 MG LOZENGE PO PRN (20:21)
[2018-12-10 22:44] LABS: Calcium 8.9 mg/dL (8.6-10.3); Potassium 4.7 mEq/L (3.5-5.1)
[2018-12-11] MEDS: Menthol 9.1 MG LOZENGE PO PRN ×2 (00:35→02:19)
[2018-12-11] MEDS ORDERED: Benzonatate 100 MG CAPSULE PO PRN ×2 (01:50→09:30)
[2018-12-11] MEDS: *HR* OxyCODONE Immed Rel 5 MG TABLET PO PRN ×2 (02:16→17:41)
[2018-12-11] MEDS: Fluticasone Propionate Nasal 50 MCG/SPRAY BOTTLE NS SCH ×2 (02:20→08:46)
[2018-12-11] MEDS ORDERED: Cefepime HCl 1,000 MG in Water for inj. (sterile) 20 ML 10 ML IVP SCH (04:20)
[2018-12-11] MEDS ORDERED: Levothyroxine 25 MCG TABLET PO SCH (06:30)
[2018-12-11] MEDS ORDERED: 0.9 % Sodium Chloride 2,000 ML ONE (06:33)
[2018-12-11] MEDS ORDERED: Ipratropium/Albuterol Neb 3 ML IH PRN (06:42)
--- NOTE | 2018-12-11 06:43 | Internal Med Progress Note ---
Addendum entered and electronically signed by Reese Guardado DO 12/11/18 17:10: Updated Assessment and Plan (1) Elevated troponin Current Visit: Yes Status: Acute Assessment and Plan: Patient complained of chest pain after finishing dialysis today. EKG performed at 14:09 showed left ventricle hypertrophy with lateral T-wave ischemia which has unchanged compared to his EKG from 05/29/18 Troponin level was elevated at 0.08 possibly secondary to end-stage renal dise ase and demand ischemia from sepsis During last admission for NSTEMI, his previous troponin peak was 0.56 and decreased to .34 before LHC. At that time, LHC revealed severe three vessel coronary artery disease S/P CABG 2 of 2 patent bypass grafts and patent left main stent - protected left main. Cardiology recommendations at that time were optimal medical therapy and aggressive risk factor modification. Upon reassessment this afternoon, patient reports the pain is now more in his abdominal region. Another EKG was performed at 16:12 showed left ventricle hypertrophy with lateral T-wave ischemia which is unchanged from the previous EKGs. GI Cocktail was ordered. Aspirin 325mg PO was ordered, continue Aspirin 81mg daily. Will continue to trend serial troponins and consider cardiology evaluation if troponin continues to rise. Original Note: <Reese Guardado - Last Filed: 12/11/18 14:24> Hospitalist Progress Note - Encounter Date of Encounter: 12/11/18 Time of Encounter: 06:40 - Subjective Interval History: Patient seen and examined resting in bed. Patient reports ongoing dry cough and myalgias. Respiratory infection panel pending. Patient is now off the insulin drip and remains on IV antibiotics. ID was consulted for antibiotic recommendations. Anticipate dialysis today and transfer out of ICU stepdown unit. Continue hemodialysis as scheduled MWF. - Exam Vitals: Temp Pulse Resp BP Pulse Ox 98.0 F 101 17 135/77 98 12/11/18 03:08 12/11/18 04:45 12/11/18 03:08 12/11/18 03:08 12/11/18 03:08 Exam: General appearance: Present: cooperative, A&O X 3, no acute distress - Head Head exam: Present: atraumatic, normocephalic - Eye Eye exam: Present: EOMI, PERRL, conjuntiva pink, sclera anicteric Pupils: Present: PERRL - ENT ENT exam: Present: mucous membranes dry, normal oropharynx - Neck Neck exam general surgery: Present: supple, trachea midline. Absent: lymphadenopathy - Respiratory Respiratory exam: Present: CTAB. Absent: accessory muscle use, rales, rhonchi, wheezes - Cardiovascular Cardiovascular exam: Present: RRR, +S1, +S2. Absent: diastolic murmur, gallop, rubs, systolic murmur - GI/Abdominal GI/Abdominal exam: Present: normal bowel sounds, soft, no peritoneal signs. Absent: distended, tenderness - Extremities Exam Extremities exam: Present: warm, radial pulses palpable and symmetrical. Absent: calf tenderness, cyanotic, normal inspection (1 cm left foot ulcer with minimal yellow purulent discharge at the base of the fifth toe with proximal streaking on the dorsal surface, decreased erythema compared to initial border outlined with skin marker), pedal edema - Neurological Exam Neurological exam: Present: alert, CN II-XII intact, oriented X3, no focal deficits. Absent: pronater drift, facial droop, speech deficit - Psychiatric Psychiatric exam: Present: normal affect, normal mood - Skin Skin exam: Present: dry, erythema (1 cm left foot ulcer with minimal yellow purulent discharge at the base of the fifth toe with proximal streaking on the dorsal surface, decreased erythema compared to initial border outlined with skin marker) - Assessment and Plan (1) Diabetic foot ulcer Current Visit: Yes Status: Acute Assessment and Plan: Patient presented with left foot ulcer with purulent drainage and surrounding erythema Patient received vancomycin and cefepime in the ED. Wound culture ordered X-ray revealed no radiographic evidence of osteomyelitis. ESR 73, CRP level 28. Concerning for osteomyelitis, MRI left foot ordered per ID recommendations. Continue pain control. Continue empiric antibiotics for now, ID consulted for antibiotic recommendations Podiatry consulted, anticipate possible wound debridement (2) Diabetic ketoacidosis Current Visit: Yes Status: Resolved Assessment and Plan: Corrected sodium for hyperglycemia anion gap 34 on presentation using initial blood glucose >2400, Repeat blood glucose level 640 corrected sodium for hyperglycemia anion gap 19 Started on DKA protocol, Insulin ggt, BMP q4h, and potassium replacement prn Repeat Anion gap 9, insulin drip discontinued 1 hour after starting basal Levemir. Continue Accu-Cheks and sliding scale insulin ACHS Continue close monitoring (3) ESRD (end stage renal disease) on dialysis Current Visit: Yes Status: Chronic Assessment and Plan: End-stage renal disease on hemodialysis Friday, Friday, Friday Avoid nephrotoxins Nephrology consulted. (4) Type 2 diabetes mellitus with diabetic chronic kidney disease Current Visit: No Status: Chronic Assessment and Plan: Hemoglobin A1c 11.8 BNP revealed hyperglycemia Continue Accu-Cheks, Levemir and sliding scale insulin (5) Diastolic CHF, chronic Current Visit: No Status: Chronic Assessment and Plan: Echo 01/30/18 revealed LVEF 55%, Moderate left ventricular diastolic dysfunction, mild concentric left ventricular hypertrophy, atypical septal motion consistent with post-operative status, mildly dilated left atrium, moderate pulmonary hypertension CXR revealed mild interstitial pulmonary edema, new since the prior exam. Monitor daily weights and input/output Continue gentle hydration, monitor for signs of fluid overload Duonebs ordered. (6) CAD (coronary artery disease), ione coronary artery Current Visit: No Status: Chronic Assessment and Plan: Continue home meds. Continue monitoring. (7) Anemia Current Visit: No Status: Chronic Assessment and Plan: Hemoglobin at baseline, no signs of active bleeding. Continue monitoring. (8) HLD (hyperlipidemia) Current Visit: No Status: Chronic Assessment and Plan: Continue home meds (9) Thrombocytopenia Current Visit: No Status: Acute Assessment and Plan: Chronic thrombocytopenia, no signs of bleeding. Avoid heparin. (10) DVT prophylaxis Current Visit: Yes Status: Acute Assessment and Plan: SCDs (11) Sepsis Current Visit: Yes Status: Acute Assessment and Plan: Patient met 2 SIRS criteria for sepsis including leukopenia WBC 3.8 and tachycardia heart rate 102, and left leg cellulitis as likely source of infection Patient given IV sepsis fluid bolus during DKA protocol Blood cultures show no growth to date Wound cultures pending CXR shows mild interstitial pulmonary edema, new since the prior exam. Respiratory infection panel pending, continue symptomatic therapy Continue empiric vancomycin and cefepime, infectious disease consulted for antibiotic medications - Time Spent with Patient Total time spent is greater than 50% in coordination of care (as documented) at patient's floor/unit and/or counseling patient: Internal Medicine: Result - Labs CBC & Chem 7: 12/11/18 06:39 12/11/18 06:39 Labs: BMP 12/10/18 12/10/18 12/10/18 08:27 14:51 18:00 Sodium 129 L 135 L 136 Potassium 4.5 4.2 4.5 Chloride 97 L 104 105 Carbon Dioxide 22 L 25 24 BUN 28 H 26 H 26 H Creatinine 3.82 H 3.51 H 3.53 H Glucose 640 H* 301 H 235 H Calcium 8.6 8.4 L 8.8 12/10/18 22:14 Sodium 134 L Potassium 4.7 Chloride 104 Carbon Dioxide 22 L BUN 27 H Creatinine 3.74 H Glucose 266 H Calcium 8.9 - Pulse Oximetry Interpretation Digit-Finger Pulse Oximetry Readin (On ambient air) Actions taken: none - Impressions Impressions Chest X-Ray 12/10/18 13:52 IMPRESSION: Mild interstitial pulmonary edema, new since the prior exam. D/ / 12/10/2018 14:24:49 Kameron Castañeda MD / jolynn Interpreting Provider: Kameron Castañeda MD Consult Discharge Plan - Plan Referrals: [facility] [Primary Care Provider[facility] - <Abigail Perdomo - Last Filed: 12/11/18 15:30> Hospitalist Progress Note - Encounter Date of Encounter: 12/11/18 Time of Encounter: 15:25 - Exam Vitals: Temp Pulse Resp BP Pulse Ox 98.1 F 71 18 130/59 99 12/11/18 13:55 12/11/18 14:17 12/11/18 13:55 12/11/18 13:55 12/11/18 13:55 - Assessment and Plan (1) Type 2 diabetes mellitus with diabetic chronic kidney disease Current Visit: No Status: Chronic (2) Anemia Current Visit: No Status: Chronic (3) Diastolic CHF, chronic Current Visit: No Status: Chronic (4) CAD (coronary artery disease), ione coronary artery Current Visit: No Status: Chronic (5) Thrombocytopenia Current Visit: No Status: Acute (6) HLD (hyperlipidemia) Current Visit: No Status: Chronic (7) Diabetic ketoacidosis Current Visit: Yes Status: Resolved (8) ESRD (end stage renal disease) on dialysis Current Visit: Yes Status: Chronic (9) DVT prophylaxis Current Visit: Yes Status: Acute (10) Diabetic foot ulcer Current Visit: Yes Status: Acute (11) Sepsis Current Visit: Yes Status: Acute - Time Spent with Patient Total time spent is greater than 50% in coordination of care (as documented) at patient's floor/unit and/or counseling patient: Internal Medicine: Result - Labs CBC & Chem 7: 12/11/18 06:39 12/11/18 06:39 Labs: Short CBC 12/11/18 Range/Units 06:39 WBC 4.5 (4.3-11.1) K/mcL Hgb 9.1 L D (12.9-16.9) g/dL Hct 26.7 L (37.5-50.1) % Plt Count 77 L (140-400) K/mcL Neutrophils # 3.2 (1.6-8.9) K/mcL BMP 12/10/18 12/10/18 12/11/18 18:00 22:14 06:39 Sodium 136 134 L 133 L Potassium 4.5 4.7 4.7 Chloride 105 104 103 Carbon Dioxide 24 22 L 22 L BUN 26 H 27 H 28 H Creatinine 3.53 H 3.74 H 4.05 H Glucose 235 H 266 H 233 H Calcium 8.8 8.9 8.9 - ABG Interpretation ABG results: PT/INR, D-dimer PT 12.2 Seconds (9.4-12.1) H 12/11/18 06:39 - Attending Attestation I saw evaluated and examined this patient and my medical decision-making was reviewed with the Resident Physician, Reese Guardado. I agree with the documented findings, disposition and treatment plan as described except to any changes set forth below. We independently had [id number] contact with the patient. I saw patient in dialysis today. He complained of nasal congestion and sinus headache. After finishing dialysis, he also reported chest pain. EKG was done which showed lateral T-wave inversion which was chronic. No other ST segment changes. General: Patient is alert, mild distress, oriented x 3 Head: atraumatic, normocephalic, Chest: normal inspection, symmetric chest rise Respiratory: Good respiratory effort. Normal breath sounds. No wheezing or crackles. Cardiovascular: Regular rate and rhythm. s1 and s2 normal No clicks, rubs, gallops, or murmurs. No pedal edema Abdomen: Abdomen is soft, nontender. Bowel sounds are present Musculoskeletal: Spontaneously moving all extremities , status post left great toe amputation. Left foot currently bandaged. Skin: warm, dry, intact. Neuro: Alert oriented x 3 normal cranial nerves, no focal deficits Psych: Patient's affect is normal Diabetic ketoacidosis and diabetes mellitus test type II: DKA Resolved now. Patient on subcutaneous insulin at this time. Diabetic diet. Diabetic foot ulcer with surrounding cellulitis: Infectious disease and podiatry following. We will follow recommendations. Obtain MRI of the left foot. Continue current antibiotics. Obtain wound cultures. Vascular studies reviewed. Patient has normal JENNIFER. End-stage renal disease on hemodialysis: Dialysis today. Upper respiratory infection: Possibly viral in nature. Does have symptoms of sinusitis. Continue symptomatic treatment. Obtain respiratory infection panel. Coronary artery disease: Continue Plavix, statin and metoprolol. No chest pain at this time DVT prophylaxis with SCDs. Patient has chronic thrombocytopenia. Will avoid heparin products for now. ____ <Reese Guardado - Last Filed: 12/11/18 14:24> (1) Diabetic foot ulcer Qualifiers: Diabetic foot ulcer location: other Diabetes mellitus type: type 2 Laterality: left Non-pressure ulcer stage: unspecified non-pressure ulcer stage Qualified Code(s): E11.621 - Type 2 diabetes mellitus with foot ulcer; L97.529 - Non-pressure chronic ulcer of other part of left foot with unspecified severity (2) Diabetic ketoacidosis Qualifiers: Diabetes mellitus type: type 2 Diabetes mellitus complication detail: without coma Qualified Code(s): E11.10 - Type 2 diabetes mellitus with ketoacidosis without coma (4) Type 2 diabetes mellitus with diabetic chronic kidney disease Qualifiers: Diabetes mellitus fci insulin use: with superintendent [employer] use Chronic kidney disease stage: on chronic dialysis Qualified Code(s): E11.22 - Type 2 diabetes mellitus with diabetic chronic kidney disease; N18.6 - End stage renal disease; Z79.4 - snf (current) use of insulin; Z99.2 - Dependence on renal dialysis (6) CAD (coronary artery disease), ione coronary artery Qualifiers: [place] vs. transplanted heart: ione heart Associated angina: with unstable angina Qualified Code(s): I25.110 - Atherosclerotic heart disease of ione coronary artery with unstable angina pectoris (7) Anemia Qualifiers: Anemia type: due to chronic kidney disease Chronic kidney disease stage: on chronic dialysis Qualified Code(s): N18.6 - End stage renal disease; D63.1 - Anemia in chronic kidney disease; Z99.2 - Dependence on renal dialysis (8) HLD (hyperlipidemia) Qualifiers: Hyperlipidemia type: pure hypercholesterolemia Qualified Code(s): E78.00 - Pure hypercholesterolemia, unspecified; E78.0 - Pure hypercholesterolemia (11) Sepsis Qualifiers: Sepsis type: sepsis due to unspecified organism Qualified Code(s): A41.9 - Sepsis, unspecified organism <Abigail Perdomo - Last Filed: 12/11/18 15:30> (1) Type 2 diabetes mellitus with diabetic chronic kidney disease Qualifiers: Diabetes mellitus superintendent [employer] insulin use: with fci use Chronic kidney disease stage: on chronic dialysis Qualified Code(s): E11.22 - Type 2 diabetes mellitus with diabetic chronic kidney disease; N18.6 - End stage renal disease; Z79.4 - termination clerk (current) use of insulin; Z99.2 - Dependence on renal dialysis (2) Anemia Qualifiers: Anemia type: due to chronic kidney disease Chronic kidney disease stage: on chronic dialysis Qualified Code(s): N18.6 - End stage renal disease; D63.1 - Anemia in chronic kidney disease; Z99.2 - Dependence on renal dialysis (4) CAD (coronary artery disease), ione coronary artery Qualifiers: [place] vs. transplanted heart: ione heart Associated angina: with unstable angina Qualified Code(s): I25.110 - Atherosclerotic heart disease of ione coronary artery with unstable angina pectoris (6) HLD (hyperlipidemia) Qualifiers: Hyperlipidemia type: pure hypercholesterolemia Qualified Code(s): E78.00 - Pure hypercholesterolemia, unspecified; E78.0 - Pure hypercholesterolemia (7) Diabetic ketoacidosis Qualifiers: Diabetes mellitus type: type 2 Diabetes mellitus complication detail: without coma Qualified Code(s): E11.10 - Type 2 diabetes mellitus with ketoacidosis without coma (10) Diabetic foot ulcer Qualifiers: Diabetic foot ulcer location: other Diabetes mellitus type: type 2 Laterality: left Non-pressure ulcer stage: unspecified non-pressure ulcer stage Qualified Code(s): E11.621 - Type 2 diabetes mellitus with foot ulcer; L97.529 - Non-pressure chronic ulcer of other part of left foot with unspecified severity (11) Sepsis Qualifiers: Sepsis type: sepsis due to unspecified organism Qualified Code(s): A41.9 - Sepsis, unspecified organism
[2018-12-11] MEDS ORDERED: 0.9 % Sodium Chloride 250 ML IVC PRN ×2 (06:56→09:30)
[2018-12-11 06:57] LABS: Basophils % 0.2 %; Eosinophils % 0.9 %; Hematocrit 26.7 % (37.5-50.1); Hemoglobin 9.1 g/dL (12.9-16.9); Immature Granulocytes % 0.2 % (0-4); Lymphocytes # 0.7 K/mcL (0.6-4.6); Lymphocytes % 14.8 %; Mean Corpuscular HGB Conc 34.1 g/dL (31.6-35.5); Mean Corpuscular Hemoglobin 30.7 pg (28.0-33.3); Mean Corpuscular Volume 90.2 fL (83.0-100.0); Mean Platelet Volume 11.3 fL (9.4-12.4); Monocytes # 0.6 K/mcL (0.0-1.3); Monocytes % 12.8 %; Neutrophils # 3.2 K/mcL (1.6-8.9); Platelet Count 77 K/mcL (140-400); Red Blood Count 2.96 M/mcL (4.19-5.50); Red Cell Distribution Width 13.7 % (11.5-14.5); Segmented Neutrophils % 71.1 %
[2018-12-11] MEDS ORDERED: 0.9 % Sodium Chloride 1,000 ML PRIME SCH ×2 (07:00→09:30)
[2018-12-11 07:03] LABS: INR 1.1; Prothrombin Time 12.2 Seconds (9.4-12.1)
[2018-12-11] MEDS: Calcium Acetate 667 MG CAPSULE PO SCH ×3 (07:13→16:19)
[2018-12-11 07:15] LABS: Calcium 8.9 mg/dL (8.6-10.3); Potassium 4.7 mEq/L (3.5-5.1)
[2018-12-11] MEDS: Furosemide 20 MG TABLET PO SCH ×2 (08:41→16:18)
[2018-12-11] MEDS: Insulin LISPRO 300 UNITS/3 ML VIAL SQ SCH ×3 (08:46→16:30)
[2018-12-11] MEDS: Insulin DETEMIR 100 UNIT/ML X5UNITS SQ SCH ×2 (08:46→20:39)
[2018-12-11] MEDS: Loratadine 10 MG TABLET PO SCH (08:47)
[2018-12-11] MEDS: Gabapentin 300 MG CAPSULE PO SCH ×2 (08:47→20:38)
[2018-12-11] MEDS ORDERED: Renal Vitamin 1 CAP CAPSULE PO SCH (09:00)
[2018-12-11] MEDS ORDERED: Vancomycin 1 EACH in 0.9 % Sodium Chloride 250 ML IVPB PRN (09:00)
[2018-12-11] MEDS ORDERED: Famotidine 20 MG TABLET PO SCH (09:00)
[2018-12-11] MEDS ORDERED: Isosorbide MONOnitrate (24 HR) 30 MG TAB.ER.24H PO SCH (09:00)
[2018-12-11] MEDS ORDERED: D5% in Water 1,000 ML IVC PRN (09:30)
[2018-12-11] MEDS ORDERED: Ondansetron 4 MG/2 ML VIAL IVP PRN (09:30)
[2018-12-11] MEDS ORDERED: (Melatonin/Pyridoxine Hcl (B6) [Melatonin 3 Mg Tablet) PO PRN (09:30)
[2018-12-11] MEDS ORDERED: Naloxone 0.4 MG/ML INJ IVP PRN (09:30)
[2018-12-11] MEDS ORDERED: Menthol 9.1 MG LOZENGE PO PRN (09:30)
[2018-12-11] MEDS ORDERED: Acetaminophen 325 MG TABLET PO PRN (09:30)
[2018-12-11] MEDS ORDERED: Dextrose Gel 15 GM/37.5 ML TUBE PO PRN ×2 (09:30)
[2018-12-11] MEDS ORDERED: Vancomycin 1 EACH in 0.9 % Sodium Chloride 250 ML IVPB SCH (09:30)
[2018-12-11] MEDS ORDERED: *HR* Dextrose 50 % in Water (Syg) 50 ML SYRINGE IVP PRN (09:30)
--- NOTE | 2018-12-11 13:28 | Infectious Disease Consult ---
Date of Encounter: 12/11/18 Time of Encounter: 13:25 Assessment and Plan (1) Sepsis Status: Acute Assessment and plan: 2 SIRS criteria admission including tachycardia and leukopenia Likely secondary to cellulitis but could be also secondary to viral syndrome Qualifiers: Sepsis type: sepsis due to unspecified organism Qualified Code(s): A41.9 - Sepsis, unspecified organism (2) Cellulitis Status: Acute Assessment and plan: Causative organism not clear ESR is elevated Diabetic foot ulcer on the lateral side of the foot is unstageable Osteomyelitis is still my differential so we might have to consider an MRI Agree with vancomycin and cefepime for now Cefepime is dosed based on his creatinine clearance for dialysis Vancomycin random level is within normal limit Goal vancomycin levels 15-20 Duration of treatment depends on the MRI findings I appreciate podiatry's input Monitor labs and for drug toxicity Qualifiers: Site of cellulitis: extremity Site of cellulitis of extremity: lower extremity Laterality: left Qualified Code(s): L03.116 - Cellulitis of left lower limb (3) Viral syndrome Status: Acute Assessment and plan: Patient having runny nose, throat and sinus pressure Concern for viral syndrome Check restaurant infectious panel Placed the patient in droplet precautions until the best infectious panel is back (4) Renal failure Status: Acute Qualifiers: Renal failure chronicity: chronic Chronic kidney disease stage: on chronic dialysis Qualified Code(s): N18.6 - End stage renal disease; Z99.2 - Depen dence on renal dialysis (5) Coronary artery disease Status: Chronic Qualifiers: Coronary Disease-Associated Artery/Lesion type: bypass graft [place] vs. 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 use Diabetes mellitus complication status: with kidney co mplications Diabetes mellitus complication detail: with chronic kidney disease Chronic kidney disease stage: on chronic dialysis Qualified Code(s): E11.22 - Type 2 diabetes mellitus with diabetic chronic kidney disease; N18.6 - End stage renal disease; Z79.4 - retirement (current) use of insulin; Z99.2 - Dependence on renal dialysis (7) Diabetic foot ulcer Status: Acute Assessment and plan: Causative organism not clear Diabetic foot ulcer unstageable ESR 73 X-ray nonrevealing for osteomyelitis Consider MRI Await cultures finalize Continue with vancomycin and cefepime for now Aggressive wound care Qualifiers: Diabetic foot ulcer location: other Diabetes mellitus type: type 2 Laterality: left Non-pressure ulcer stage: unspecified non-pressure ulcer stage Qualified Code(s): E11.621 - Type 2 diabetes mellitus with foot ulcer; L97.529 - Non-pressure chronic ulcer of other part of left foot with unspecified severity Infectious Disease HPI - Data of Consult Patient: new to practice Consult date: 12/11/18 Requesting Physician: Abigail Perdomo MD Primary Care Provider: [facility] [place] - Consult Narrative Reason for consult: Cellulitis History of present illness: Mr. Velarde is a 63 year old male Patient is a 63-year-old gentleman who has an extensive past medical history mentioned below including coronary artery disease with history of CABG twice in 1998 2002, diabetes mellitus type 2 diagnosed in 1999 poorly controlled, hypertension, dyslipidemia, incision of disease on hemodialysis for about a year on Friday and Friday who apparently had an infected left great toe before due to an ingrown nail and had a great toe amputation done at the [facility] in [place] was not usual state of health until 2 days prior to admission when he noted an ulceration of the left foot lateral side with cellulitis. The ulcer looked old but the patient told me that it was not there before. I am not sure if the patient is the best historian. Patient also had erythema of the foot. Denied any fevers or chills but feels weak and tired and has no energy. On further questioning patient also tells me that he has not seen any wound care but he was scheduled to see them but he got sick before he got and a chest to see them. On further review of system patient is having runny nose sinus pressure and sore throat has been there for a couple days. Patient lives in [place] with his daughter. No children at home. No other sick contacts. Patient denies any fevers or chills. Patient denies any night sweats. Patient denied any chest pain or shortness of breath. No cough no sputum production. No nausea no vomiting no diarrhea no constipation. Patient does not produce any urine. No rash. Since admission, patient has been afebrile, had few episodes of tachycardia, and no tachypnea. Labs since admission WBC 3.8 with 75% neutrophils no bands. BUN 27, creatinine 3.74, hemoglobin A1c 11.8, ESR/CRP 73/28 respectively. Blood cultures were obtained and are no growth to date. X-ray of the foot 12/10/2018 reveals no radiographic evidence of osteomyelitis. Patient was started on vancomycin and cefepime. We were asked to evaluate the patient's make further recommendations. Currently patient is getting dialyzed. He tells me that he does not feel too good. He feels weak and tired. Review of system as above. CC: Abigail Perdomo MD Past Med Surg Social Fam HX - Past Medical History Medical history: coronary artery disease, diabetes, dialysis, GERD, hyperlipidemia, hypertension, myocardial infarction, renal disease, other Additional medical history: C1,2 L 5,6 arthritis , "nerve damage " Psychiatric history: anxiety, depression - Past Surgical History Surgical History: angioplasty/stent, coronary bypass (CABG) (2v CABG in 1998, redo 3v CABG in 2002), orthopedic, other (Surgery on right knee x4, scope on left knee x1), other (Amputation of left great toe, re-attachment of right hand after accident at work) Additional surgical history: cardia stents 04/2018 , cabg 99 and 03 , Right hand re attached previous work accident, toe left great toe, left 3rd finger unable to extend finger for a couple years . multiple knee scopes ,arthritis - Social History Smoking Status: Never smoker Smokeless Tobacco Status: No Alcohol use: none Drug use: none - Family History Brother Family Member Ethnicity: Non- Living Status: Still Living Hx Family Cardiac Disorders: Yes ([place]) Father Adopted: No Family Member Ethnicity: Non- Living Status: Still Living Hx Family Cardiac Disorders: Yes (Coronary artery disease?) Hx Family Respiratory Disorders: No Hx Family Cancer: Yes Hx Family GI Disorders: No Hx Family Endocrine Disorder: Yes (brothers, sister) Hx Family Neuromuscular Disorders: No Hx Family Neurologic Disorders: No Hx Family HEENT Disorders: No Hx Family Autoimmune Disorders: No Mother Adopted: No Family Member Ethnicity: Non- Living Status: Still Living Hx Family Cardiac Disorders: Yes ([place], Pacemaker) Hx Family Respiratory Disorders: Yes (COPD) Hx Family Cancer: Yes Hx Family GI Disorders: No Hx Family Endocrine Disorder: Yes (DM) Hx Family Neuromuscular Disorders: No Hx Family Neurologic Disorders: No Hx Family HEENT Disorders: No Hx Family Autoimmune Disorders: No Sister Family Member Ethnicity: Non- Living Status: Still Living Hx Family Endocrine Disorder: Yes (DM) Infectious Disease-CN:Meds RX: Calcium Acetate [Phos-LO] 1,334 mg PO TIDWM 10/04/16 [History] RX: Pantoprazole Sodium [Protonix] 40 mg PO DAILY 10/04/16 [History] RX: Ranitidine HCl [Heartburn Relief] 150 mg PO DAILY 10/04/16 [History] RX: Insulin ASPART [NovoLOG] 45 unit SQ BIDWM 04/25/17 [History] RX: Clopidogrel [Plavix] 75 mg PO DAILY #30 tablet 04/28/17 [Rx] RX: Insulin Glargine,Hum.rec.anlog [Lantus Solostar] 90 unit SQ BID 01/29/18 [History] RX: Renal Vitamin [Renal Caps Softgel] 1 mg PO DAILY 01/29/18 [History] RX: OxyCODONE Immed Rel [Roxicodone 5 MG] 10 mg PO Q6HR PRN 04/27/18 [History] RX: Isosorbide MONOnitrate (24 HR) [Imdur] 30 mg PO DAILY tab.er.24h 04/29/18 [Rx] RX: Metoprolol [Lopressor] 12.5 mg PO BID tablet 04/29/18 [Rx] Atorvastatin Calcium [Lipitor] 40 mg PO HS 12/10/18 [History] Buspirone HCl [Buspar] 5 mg PO TID 12/10/18 [History] Cetirizine HCl [24Hour Allergy] 5 mg PO DAILY 12/10/18 [History] Furosemide [Lasix] 60 mg PO BID 12/10/18 [History] Gabapentin [Neurontin] 300 mg PO BID 12/10/18 [History] Melatonin/Pyridoxine HCl (B6) [Melatonin 3 mg Tablet] 3 mg PO HS PRN 12/10/18 [History] RX: Levothyroxine [Synthroid] 25 mcg PO QAM 12/10/18 [History] RX: Paroxetine [Paxil] 30 mg PO QAM 12/10/18 [History] Allergy/AdvReac Type Severity Reaction Status Date / Time codeine Allergy Unknown Hives Verified 05/29/18 22:26 methadone [Methadone] Allergy Unknown Rash Verified 05/29/18 22:26 Penicillins [PCN] Allergy Unknown Rash Verified 05/29/18 22:26 promethazine [From Phenergan] Allergy Unknown Hives Verified 05/29/18 22:26 trazodone Allergy Unknown Itching Verified 05/29/18 22:26 Exam - Constitutional Vitals: Temp Pulse Resp BP Pulse Ox 98.9 F 73 18 113/49 94 12/11/18 09:45 12/11/18 08:54 12/11/18 09:45 12/11/18 13:00 12/11/18 07:39 General appearance: cooperative, disheveled, no febrile Exam: Was receiving dialysis - Head Head exam: Present: atraumatic, normocephalic - Eye Eye exam: Present: EOMI, PERRL, sclera anicteric - ENT ENT exam: Present: mucous membranes moist, normal exam Additional comments: I did not appreciate any tonsillar exudate or erythema. - Neck Neck exam: Present: full ROM. Absent: meningismus - Respiratory Respiratory exam: Present: CTAB. Absent: wheezes - Cardiovascular Cardiovascular exam: Present: RRR, +S1, +S2 - GI/Abdominal GI/Abdominal exam: Present: normal bowel sounds, soft. Absent: tenderness - Extremities Exam Additional comments: Adequate perfusion bilaterally Left foot with a diabetic foot ulcer about 1-2 cm in diameter unable to scale with surrounding erythema that is tracking all the way on the plantar aspect of the foot. Also has amputation of the left great toe - Neurological Exam Neurological exam: Present: alert, oriented X3. Absent: speech deficit - Psychiatric Psychiatric exam: Present: normal affect, normal mood - Skin Skin exam: Present: normal color. Absent: rash Infectious Disease CN: Results - Labs CBC & Chem 7: 12/11/18 06:39 12/11/18 06:39 Cultures: Cultures 12/10/18 03:52 Blood Culture - Preliminary Peripheral Venipuncture Culture is incubating and being continuously monitored for growth. Final report to follow. 12/10/18 03:34 Blood Culture - Preliminary Peripheral Venipuncture Culture is incubating and being continuously monitored for growth. Final report to follow. Consult Discharge Plan - Plan [facility]: [facility] [Primary Care Provider] -
[2018-12-11] MEDS ORDERED: Gadolinium Contrast Agent (WT Based) IV PRN (14:43)
[2018-12-11 15:33] LABS: Adenovirus Not Detected (Not Detect); Bordetella Pertussis Not Detected (Not Detect); Chlamydophila pneumoniae Not Detected (Not Detect); Coronavirus 229E Not Detected (Not Detect); Coronavirus HKU1 Not Detected (Not Detect); Coronavirus NL63 Not Detected (Not Detect); Coronavirus OC43 Not Detected (Not Detect); Human Metapneumovirus Not Detected (Not Detect); Human Rhinovirus/Enterovirus DETECTED (Not Detect); Influenza A Subtype 2009 H1 Not Detected (Not Detect); Influenza A Untypeable Not Detected (Not Detect); Influenza B Not Detected (Not Detect); Mycoplasma pneumoniae Not Detected (Not Detect); Parainfluenza Virus 1 Not Detected (Not Detect); Parainfluenza Virus 2 Not Detected (Not Detect); Parainfluenza Virus 3 Not Detected (Not Detect); Parainfluenza Virus 4 Not Detected (Not Detect); Respiratory Syncytial Virus Not Detected (Not Detect)
[2018-12-11] MEDS: Cefepime HCl 1,000 MG in Water for inj. (sterile) 20 ML 10 ML IVP SCH (16:19)
--- NOTE | 2018-12-11 17:27 | Podiatry Progress Note ---
Date of Encounter: 12/11/18 Time of Encounter: 15:00 - Assessment and Plan (1) Diabetic foot ulcer Current Visit: Yes Status: Acute Assessment: Partial thickness diabetic ulcer noted to left MTPJ #5. Does not probe to bone. Debrided bedside. Fibrinous base noted. Adequate bleeding noted to help promote wound healing. Erythema and edema noted, streaking from digit #5 left foot to midfoot. Demarcation line noted. Improved from yesterday. Palpable pulses DP/PT left foot CFT <3 seconds left foot Left foot warm to touch Blood cultures pending WBC 4.5 ID consulted for management of ATB- appreciate recommendations Foot xray negative for OM ABIs returned non-compressible PT bilateral feet. Otherwise normal. TCPO2 normal MRI ordered per primary team- pending Plan: Sharp surgical excisional debridement of all hyperkeratotic tissue/callus lesions MTPJ #5 left foot with #15 scalpel blade reveals ulceration measuring 1.5 cm x 1.5 cm x 0.3 cm. no undermining or tunneling noted. No abscess noted. Wound thoroughly irrigated with sterile saline and peroxide. Painted with betadine. Covered with gauze and kerlex. Wound cultures collected bedside. Nursing to send to lab. Tight glycemic control to promote wound healing. Primary managing May consider vascular consult for evaluation of non-compressible artery to promote wound healing. Qualifiers: Diabetic foot ulcer location: other Diabetes mellitus type: type 2 Laterality: left Non-pressure ulcer stage: unspecified non-pressure ulcer stage Qualified Code(s): E11.621 - Type 2 diabetes mellitus with foot ulcer; L97.529 - Non-pressure chronic ulcer of other part of left foot with unspecified severity Subjective Interval history: Patient lying in bed. Reports chest pain and nauseas after dialysis today. Denies any fevers, chills, diarrhea, calf pain, or shortness of breath. Objective - Vital Signs Vital Signs: Vital Signs Temp Pulse Resp BP Pulse Ox 12/11/18 16:16 99.0 F 72 18 123/54 94 12/11/18 14:17 71 12/11/18 13:55 98.1 F 70 18 130/59 99 12/11/18 13:35 97.7 F 20 120/53 12/11/18 13:15 116/53 12/11/18 13:00 113/49 12/11/18 12:45 118/53 12/11/18 12:30 127/52 12/11/18 12:15 113/54 12/11/18 12:00 113/55 12/11/18 11:45 108/58 12/11/18 11:30 105/49 12/11/18 11:15 107/52 12/11/18 11:00 99/49 12/11/18 10:45 108/50 12/11/18 10:30 106/52 12/11/18 10:15 98/50 12/11/18 10:00 101/54 12/11/18 09:45 98.9 F 18 105/56 12/11/18 08:54 73 12/11/18 07:39 99.1 F 99 18 138/80 94 12/11/18 04:45 101 12/11/18 03:08 98.0 F 101 17 135/77 98 12/11/18 00:25 102 12/10/18 23:38 99.0 F 71 18 145/93 97 12/10/18 20:10 82 12/10/18 19:53 98.1 F 83 20 150/66 95 Intake and Output 12/11/18 12/11/18 12/11/18 07:59 15:59 23:59 Intake Total 110 / 110 600 / 600 Output Total 550 / 550 1600 / 1600 Balance -440 / -440 -1000 / -1000 Intake: IV Fluids Maxipime 1,000 MG In Water for inj. (sterile) 10 ML @ 300 mls/ hr IVP Q24H [facility] Rx#:[id number] Oral 100 / 100 0 / 0 Intake, Rinseback and Flushes 600 / 600 Output: Urine 550 / 550 0 / 0 Total Dialysis (HD) Output 1600 / 1600 Other: Blood Glucose* 216 120 180 Hemodialysis Net Fluid Removed 1000 (mL) - Exam Exam: Constitiutional: Alert and oriented x 3. Well nourished. No acute distress noted Vascular: 2/4 DP/PT LLE, CFT <3 sec to all digits, warm to warm from tibia to toes bilaterally, left hallux amputation Neurologic: Sensation to touch, normal plantar response, abnormal position sense dorsiflexion/plantar flexion Dermatologic: Ulceration noted to left submetatarsal #5, does not probe to bone, erythema and edema noted, streaking to midfoot. Musculoskeletal: 4/5 muscle strength and normal tone LLE - Lab Result Diagrams: 12/11/18 06:39 12/11/18 06:39 Labs: Abnormal lab results RBC 2.96 M/mcL (4.19-5.50) L 12/11/18 06:39 Hgb 9.1 g/dL (12.9-16.9) L D 12/11/18 06:39 Hct 26.7 % (37.5-50.1) L 12/11/18 06:39 Plt Count 77 K/mcL (140-400) L 12/11/18 06:39 ESR 73 mm/hr (0-10) H 12/10/18 08:00 PT 12.2 Seconds (9.4-12.1) H 12/11/18 06:39 Sodium 133 mEq/L (136-145) L 12/11/18 06:39 Carbon Dioxide 22 mEq/L (23-29) L 12/11/18 06:39 BUN 28 mg/dL (8-23) H 12/11/18 06:39 Creatinine 4.05 mg/dL (0.70-1.30) H 12/11/18 06:39 Est GFR ( Amer) 18 (> 60) L 12/11/18 06:39 Est GFR (Non-Af Amer) 15 (> 60) L 12/11/18 06:39 Glucose 233 mg/dL (70-105) H 12/11/18 06:39 POC Glucose 216 mg/dL (70-99) H 12/11/18 07:41 Hemoglobin A1c 11.8 % (-5.6) H 12/10/18 08:00 Troponin I 0.08 ng/mL (< 0.04) H* 12/11/18 14:34 C-Reactive Protein 28 mg/L (Less than 10) H 12/10/18 08:27 Entero/Rhino (PCR) DETECTED (Not Detect) A 12/11/18 14:00 Microbiology, Last 48 Hours 12/10/18 03:52 Blood Culture - Preliminary Peripheral Venipuncture Culture is incubating and being continuously monitored for growth. Final report to follow. 12/10/18 03:34 Blood Culture - Preliminary Peripheral Venipuncture Culture is incubating and being continuously monitored for growth. Final report to follow. Consult Discharge Plan - Plan [facility]errals: [facility] [Primary Care Provider] -
[2018-12-11] MEDS ORDERED: GI Cocktail 40 ML EACH PO ONE (17:30)
[2018-12-11] MEDS ORDERED: Aspirin Enteric Coated 325 MG Tablet PO ONE (17:31)
[2018-12-11] MEDS ORDERED: Insulin LISPRO 300 UNITS/3 ML VIAL SQ SCH (21:00)
[2018-12-12] MEDS ORDERED: Cefepime HCl 1,000 MG in Water for inj. (sterile) 20 ML 10 ML IVP SCH (04:20)
[2018-12-12] MEDS: Levothyroxine 25 MCG TABLET PO SCH (05:51)
[2018-12-12 06:18] LABS: Hematocrit 24.5 % (37.5-50.1); Hemoglobin 8.4 g/dL (12.9-16.9); Mean Corpuscular HGB Conc 34.3 g/dL (31.6-35.5); Mean Corpuscular Hemoglobin 30.9 pg (28.0-33.3); Mean Corpuscular Volume 90.1 fL (83.0-100.0); Mean Platelet Volume 11.6 fL (9.4-12.4); Red Blood Count 2.72 M/mcL (4.19-5.50); Red Cell Distribution Width 13.4 % (11.5-14.5)
[2018-12-12 06:20] LABS: Platelet Count 65 K/mcL (140-400)
[2018-12-12 06:37] LABS: Calcium 8.9 mg/dL (8.6-10.3); Potassium 4.4 mEq/L (3.5-5.1)
[2018-12-12] MEDS: Calcium Acetate 667 MG CAPSULE PO SCH ×3 (08:19→17:11)
[2018-12-12] MEDS: Aspirin Enteric Coated 81 MG Tablet PO SCH (08:19)
[2018-12-12] MEDS: Gabapentin 300 MG CAPSULE PO SCH ×2 (08:19→21:09)
[2018-12-12] MEDS: Renal Vitamin 1 CAP CAPSULE PO SCH (08:19)
[2018-12-12] MEDS: Isosorbide MONOnitrate (24 HR) 30 MG TAB.ER.24H PO SCH (08:20)
[2018-12-12] MEDS: Famotidine 20 MG TABLET PO SCH (08:20)
[2018-12-12] MEDS: Furosemide 20 MG TABLET PO SCH ×2 (08:20→17:10)
[2018-12-12] MEDS: Loratadine 10 MG TABLET PO SCH (08:20)
[2018-12-12] MEDS: Insulin LISPRO 300 UNITS/3 ML VIAL SQ SCH ×3 (08:21→17:10)
[2018-12-12] MEDS: Insulin DETEMIR 100 UNIT/ML X5UNITS SQ SCH ×2 (08:21→21:09)
[2018-12-12] MEDS: Fluticasone Propionate Nasal 50 MCG/SPRAY BOTTLE NS SCH (08:21)
--- NOTE | 2018-12-12 11:24 | Internal Med Progress Note ---
Hospitalist Progress Note - Encounter Date of Encounter: 12/12/18 Time of Encounter: 09:20 - Subjective Interval History: Patient is lying down in bed. Comfortable. Denies any chest pain at this time. Feels somewhat better today. Nasal congestion is improving. Denies any pain in his lower extremities or fever. No Shortness of breath at this time. - Exam Vitals: Temp Pulse Resp BP Pulse Ox 98.7 F 76 16 109/56 96 12/12/18 07:45 12/12/18 07:45 12/12/18 07:45 12/12/18 07:45 12/12/18 08:34 Exam: General: Patient is alert, no acute distress, oriented x 3 ENT: Mucous membranes moist Respiratory: Good respiratory effort. Normal breath sounds. No wheezing or crackles. Cardiovascular: Regular rate and rhythm. s1 and s2 normal No clicks, rubs, gallops, or murmurs. No pedal edema Abdomen: Abdomen is soft, nontender. Bowel sounds are present Musculoskeletal: Spontaneously moving all extremities Skin: warm, dry, intact. Left foot cellulitis improving. Ulcer on plantar surface of left foot stable. Clean base. No discharge noted. Neuro: Alert oriented x 3 normal cranial nerves, no focal deficits - Assessment and Plan (1) Diabetic foot ulcer Current Visit: Yes Status: Acute Assessment and Plan: Debridement done at bedside yesterday. Awaiting wound culture results. Continue current antibiotics. Appears to be healing well at this time. Continue local wound care. Moderate risk for complications. Podiatry had recommended evaluation by vascular surgery. Consult placed and will discuss with vascular surgery (2) Type 2 diabetes mellitus with diabetic chronic kidney disease Current Visit: Yes Status: Chronic Assessment and Plan: Improved control overall. We will increase sliding scale coverage to medium correctional. Continue diabetic diet. (3) Anemia Current Visit: Yes Status: Chronic Assessment and Plan: hemoglobin 8.4 today. Due to chronic kidney disease. Patient also has chronically low platelets. We will continue to monitor closely. Epogen per nephrology recommendations as needed. (4) Diastolic CHF, chronic Current Visit: Yes Status: Chronic Assessment and Plan: Not in acute exacerbation. Continue oral Lasix (5) CAD (coronary artery disease), [place] coronary artery Current Visit: No Status: Chronic Assessment and Plan: Continue aspirin, statin, Plavix and Lopressor. Patient reported chest pain yesterday. Resolved soon. Patient and reported abdominal pain which improved after GI cocktail was given. Mild elevation in troponin. Adynamic. No further workup planned at this time. (6) Thrombocytopenia Current Visit: Yes Status: Acute Assessment and Plan: chronic. Avoiding heparin for anticoagulation. Platelets 65 today. No signs of overt bleeding. (7) HLD (hyperlipidemia) Current Visit: Yes Status: Chronic Assessment and Plan: Continue statin. (8) Diabetic ketoacidosis Current Visit: Yes Status: Resolved (9) ESRD (end stage renal disease) on dialysis Current Visit: Yes Status: Chronic Assessment and Plan: Continue dialysis per nephrology recommendations. (10) DVT prophylaxis Current Visit: Yes Status: Acute Assessment and Plan: With SCDs (11) Sepsis Current Visit: Yes Status: Acute - Time Spent with Patient Total time spent is greater than 50% in coordination of care (as documented) at patient's floor/unit and/or counseling patient: Internal Medicine: Result - Labs CBC & Chem 7: 12/12/18 05:40 12/12/18 05:40 Labs: Short CBC 12/12/18 Range/Units 05:40 WBC 4.0 L (4.3-11.1) K/mcL Hgb 8.4 L (12.9-16.9) g/dL Hct 24.5 L (37.5-50.1) % Plt Count 65 L (140-400) K/mcL BMP 12/12/18 05:40 Sodium 132 L Potassium 4.4 Chloride 98 Carbon Dioxide 28 BUN 20 Creatinine 3.30 H Glucose 205 H Calcium 8.9 Cardiac Enzymes 12/11/18 12/11/18 12/12/18 Range/Units 14:34 20:20 05:40 Troponin I 0.08 H* 0.08 H* 0.07 H* (< 0.04) ng/mL - ABG Interpretation ABG results: PT/INR, D-dimer PT 12.2 Seconds (9.4-12.1) H 12/11/18 06:39 - Impressions Impressions Chest X-Ray 12/10/18 13:52 IMPRESSION: Mild interstitial pulmonary edema, new since the prior exam. D/ / 12/10/2018 14:24:49 Kameron Castañeda MD / jolynn Interpreting Provider: Kameron Castañeda MD Foot MRI 12/11/18 14:43 IMPRESSION: 1. Moderate cellulitis of the dorsum of the foot. Mild cellulitis of the 5th toe. Irregularity/ulceration of the lateral forefoot as well as the dorsal/lateral aspect of the 5th toe base. Moderate myositis of the visualized intertarsal musculature. 2. No discrete organized fluid collection identified within the visualized soft tissues. 3. Mild marrow edema within the proximal phalanx of the 5th digit and 5th metatarsal head without discrete low T1 signal. Findings do not meet the MRI criteria for osteomyelitis at this point and are favored to represent reactive osteitis. No aggressive osseous destruction. 4. Prior amputation of the great toe phalanges. The findings were sent to the [facility]iology [facility] at 6:32 am on 12/12/2018to be communicated to a licensed caregiver. D/ / 12/12/2018 08:57:19 Jelani Perkins MD / jolynn Interpreting Provider: Jelani Perkins MD Consult Discharge Plan - Plan [facility]errals: [facility] [Primary Care Provider] - (1) Diabetic foot ulcer Qualifiers: Diabetic foot ulcer location: other Diabetes mellitus type: type 2 Laterality: left Non-pressure ulcer stage: unspecified non-pressure ulcer stage Qualified Code(s): E11.621 - Type 2 diabetes mellitus with foot ulcer; L97.529 - Non-pressure chronic ulcer of other part of left foot with unspecified severity (2) Type 2 diabetes mellitus with diabetic chronic kidney disease Qualifiers: Diabetes mellitus buttermaker insulin use: with buttermaker use Chronic kidney disease stage: on chronic dialysis Qualified Code(s): E11.22 - Type 2 diabetes mellitus with diabetic chronic kidney disease; N18.6 - End stage renal disease; Z79.4 - senior living (current) use of insulin; Z99.2 - Dependence on renal dialysis (3) Anemia Qualifiers: Anemia type: due to chronic kidney disease Chronic kidney disease stage: on chronic dialysis Qualified Code(s): N18.6 - End stage renal disease; D63.1 - Anemia in chronic kidney disease; Z99.2 - Dependence on renal dialysis (5) CAD (coronary artery disease), [place] coronary artery Qualifiers: [place] vs. transplanted heart: [place] heart Associated angina: with unstable angina Qualified Code(s): I25.110 - Atherosclerotic heart disease of [place] coronary artery with unstable angina pectoris (7) HLD (hyperlipidemia) Qualifiers: Hyperlipidemia type: pure hypercholesterolemia Qualified Code(s): E78.00 - Pure hypercholesterolemia, unspecified; E78.0 - Pure hypercholesterolemia (8) Diabetic ketoacidosis Qualifiers: Diabetes mellitus type: type 2 Diabetes mellitus complication detail: without coma Qualified Code(s): E11.10 - Type 2 diabetes mellitus with ketoacidosis without coma (11) Sepsis Qualifiers: Sepsis type: sepsis due to unspecified organism Qualified Code(s): A41.9 - Sepsis, unspecified organism
[2018-12-12] MEDS ORDERED: Insulin LISPRO 300 UNITS/3 ML VIAL SQ SCH (11:28)
--- NOTE | 2018-12-12 13:59 | Vascular/Endovasc Consult Note ---
Date of Encounter: 12/12/18 Time of Encounter: 13:56 Assessment and Plan (1) DM renal manif type II Current Visit: No Status: Chronic Patient has chronic diabetes dating back nearly 20 years. Qualifiers: Diabetes mellitus alf insulin use: unspecified alf insulin use status Diabetes mellitus complication detail: with chronic kidney disease Chronic kidney disease stage: on chronic dialysis Qualified Code(s): E11.22 - Type 2 diabetes mellitus with diabetic chronic kidney disease; N18.6 - End stage renal disease; Z99.2 - Dependence on renal dialysis (2) ESRD (end stage renal disease) on dialysis Current Visit: Yes Status: Chronic Patient on hemodialysis for approximately 1 year (3) Diabetic foot ulcer Current Visit: Yes Status: Acute New onset left foot diabetic ulcer. Blood flow however to the left foot appears normal by objective measurement. He does have a palpable posterior tibial pulse. The ABIs normal and the TC PO2 is normal. I do not recommend angiography for the patient. I would agree with continued aggressive wound care antibiotic therapy. Patient was invited to return to the vascular surgery clinic on a when necessary basis. Qualifiers: Diabetic foot ulcer location: other Diabetes mellitus type: type 2 Laterality: left Non-pressure ulcer stage: unspecified non-pressure ulcer stage Qualified Code(s): E11.621 - Type 2 diabetes mellitus with foot ulcer; L97.529 - Non-pressure chronic ulcer of other part of left foot with unspecified severity - History of Present Illness Consult date: 12/12/18 Consult reason: Diabetic foot woundleft Chief complaint: Left foot wound History of present illness: Mr. Velarde is a 63 year old male Who was admitted earlier this week for new onset of left foot wound. The patient states that his daughter discovered the wound this past Friday when she was looking at his left foot. The patient denies any pain or trauma to this area. He went on to have the area taken care of by his daughter with antibiotic cream. She doesn't soak the foot. Then on Friday it became red and he presented himself to the hospital for admission. He then underwent intravenous antibiotic therapy as well as consultation to nephrology and infectious disease and podiatry. The patient denies any previous ulcerations. He has a 18 year history of diabetes. He also has a history of diabetic neuropathy affecting both his feet and hands. He denies any symptoms of claudication or ischemic rest pain. He does describe over the past few weeks a sensation of weakness in both lower extremities. He has not had previous vascular testing. He has had no previous lower extremity vascular interventions. The patient has a number of chronic medical problems. The patient has been on dialysis for about 1 year. He has a left antecubital AV fistula created at [facility]. He is dialyzed on a Friday basis. He has known coronary artery disease. He has had 2 previous open heart bypass grafts to first in [place] at [facility] in the late and then a second bypass in [place]. The patient underwent noninvasive testing which demonstrates normal TCP O2 bilat erally. The patient had some noncompressible vessels noted but his ankle- brachial indices were normal bilaterally. MRI of the foot demonstrated no osteomyelitis. Past Med Surg Social Fam HX - Past Medical History Medical history: coronary artery disease, diabetes, dialysis, GERD, hyperlipidemia, hypertension, myocardial infarction, renal disease, other Additional medical history: C1,2 L 5,6 arthritis , "nerve damage " Psychiatric history: anxiety, depression - Past Surgical History Surgical History: angioplasty/stent, coronary bypass (CABG) (2v CABG in 1998, redo 3v CABG in 2002), orthopedic, other (Surgery on right knee x4, scope on lef t knee x1), other (Amputation of left great toe, re-attachment of right hand after accident at work) Additional surgical history: cardia stents 04/2018 , cabg 99 and 03 , Right hand re attached previous work accident, toe left great toe, left 3rd finger unable to extend finger for a couple years . multiple knee scopes ,arthritis , left antecubital AV fistula creation at [facility]. - Social History Smoking Status: Never smoker Smokeless Tobacco Status: No Alcohol use: none Drug use: none - Family History Father Adopted: No Family Member Ethnicity: Non- Living Status: Still Living Hx Family Cardiac Disorders: Yes (Coronary artery disease?) Hx Family Respiratory Disorders: No Hx Family Cancer: Yes Hx Family GI Disorders: No Hx Family Endocrine Disorder: Yes (brothers, sister) Hx Family Neuromuscular Disorders: No Hx Family Neurologic Disorders: No Hx Family HEENT Disorders: No Hx Family Autoimmune Disorders: No Brother Family Member Ethnicity: Non- Living Status: Still Living Hx Family Cardiac Disorders: Yes ([place]) Sister Family Member Ethnicity: Non- Living Status: Still Living Hx Family Endocrine Disorder: Yes (DM) Mother Adopted: No Family Member Ethnicity: Non- Living Status: Still Living Hx Family Cardiac Disorders: Yes ([place], Pacemaker) Hx Family Respiratory Disorders: Yes (COPD) Hx Family Cancer: Yes Hx Family GI Disorders: No Hx Family Endocrine Disorder: Yes (DM) Hx Family Neuromuscular Disorders: No Hx Family Neurologic Disorders: No Hx Family HEENT Disorders: No Hx Family Autoimmune Disorders: No Medications and Allergies Calcium Acetate [Phos-LO] 1,334 mg PO TIDWM 10/04/16 [History] Pantoprazole Sodium [Protonix] 40 mg PO DAILY 10/04/16 [History] Ranitidine HCl [Heartburn Relief] 150 mg PO DAILY 10/04/16 [History] Insulin ASPART [NovoLOG] 45 unit SQ BIDWM 04/25/17 [History] Clopidogrel [Plavix] 75 mg PO DAILY #30 tablet 04/28/17 [Rx] Insulin Glargine,Hum.rec.anlog [Lantus Solostar] 90 unit SQ BID 01/29/18 [History] Renal Vitamin [Renal Caps Softgel] 1 mg PO DAILY 01/29/18 [History] OxyCODONE Immed Rel [Roxicodone 5 MG] 10 mg PO Q6HR PRN 04/27/18 [History] Isosorbide MONOnitrate (24 HR) [Imdur] 30 mg PO DAILY tab.er.24h 04/29/18 [Rx] Metoprolol [Lopressor] 12.5 mg PO BID tablet 04/29/18 [Rx] Atorvastatin Calcium [Lipitor] 40 mg PO HS 12/10/18 [History] Buspirone HCl [Buspar] 5 mg PO TID 12/10/18 [History] Cetirizine HCl [24Hour Allergy] 5 mg PO DAILY 12/10/18 [History] Furosemide [Lasix] 60 mg PO BID 12/10/18 [History] Gabapentin [Neurontin] 300 mg PO BID 12/10/18 [History] Levothyroxine [Synthroid] 25 mcg PO QAM 12/10/18 [History] Melatonin/Pyridoxine HCl (B6) [Melatonin 3 mg Tablet] 3 mg PO HS PRN 12/10/18 [History] Paroxetine [Paxil] 30 mg PO QAM 12/10/18 [History] Allergy/AdvReac Type Severity Reaction Status Date / Time codeine Allergy Unknown Hives Verified 05/29/18 22:26 methadone [Methadone] Allergy Unknown Rash Verified 05/29/18 22:26 Penicillins [PCN] Allergy Unknown Rash Verified 05/29/18 22:26 promethazine [From Phenergan] Allergy Unknown Hives Verified 05/29/18 22:26 trazodone Allergy Unknown Itching Verified 05/29/18 22:26 All Systems Review: The remainder of the systems were reviewed and are negative Exam Vital Signs, Last 4 Hours Temp Pulse Resp BP Pulse Ox 12/12/18 12:07 70 12/12/18 11:48 97.9 F 71 16 113/63 94 General: Present: Conversant, No Apparent Distress, Well developed, Well nourished HEENT: Present: Atraumatic, Normocephaly, Trachea midline Neck: Absent: JVD, Left Carotid bruit, Right Carotid bruit, Midline deformity, Tracheal deviation Cardiac: Present: Reg Rate and Rhythm, Normal S1 and S2, No Murmur. Absent: Irregular Rhythm Lungs: Present: Normal Breath Sounds, No Wheeze, Rales, Rhonchi Neuro: Present: Alert and responsive, Cranial nerves grossly intact Abdomen: Present: Soft, Non-tender. Absent: Masses Vascular: Present: Capillary refill delayed, Pulse, normal (Palpable bilateral posterior tibial pulses. I do not palpate the dorsalis pedis pulses.), Color/Temperature (His feet are cool. There are PL in color.), Amputation(s) (Status post left first toe amputation that is well-healed.) Skin: Present: Wound/ulcer(s) (Patient has an ulceration on the lateral posterior aspect of the fifth metatarsal head region. This ulcer measures approximately 1 x 1 cm. There is no exposed bone or tendon. Patient has mild erythema surrounding the area. There is no odor. There is no gross necrotic material. There is limited granulation tissue in the wound. There is an area of redness that is on the dorsum of the foot but this is pale in color.) Consult Discharge Plan - Plan [facility]errals: [facility] Care Provider[facility] -
--- NOTE | 2018-12-12 16:21 | Nephrology Progress Note ---
Date of Encounter: 12/11/18 Time of Encounter: 12:00 - Assessment and Plan (1) ESRD (end stage renal disease) on dialysis Status: Chronic Continue HD with UF as tolerated Continue renal diet Lytes stable (2) Diabetic foot ulcer Status: Acute Podiatry following. Wound care as needed Qualifiers: Diabetic foot ulcer location: other Diabetes mellitus type: type 2 Latera lity: left Non-pressure ulcer stage: unspecified non-pressure ulcer stage Qualified Code(s): E11.621 - Type 2 diabetes mellitus with foot ulcer; L97.529 - Non-pressure chronic ulcer of other part of left foot with unspecified severity (3) HHNC (hyperglycemic hyperosmolar nonketotic coma) Status: Acute Resolving. Per primary. Subjective Interval history: Pt seen and examined on HD doing well with no complaints. Interim events noted, history of ESRD for 1 year at [facility] Objective - Vital Signs Vital signs: Vital Signs Temp Pulse Resp BP Pulse Ox 12/12/18 12:07 70 12/12/18 11:48 97.9 F 71 16 113/63 94 12/12/18 08:34 96 12/12/18 07:45 98.7 F 76 16 109/56 96 12/12/18 04:29 98.1 F 99 18 141/73 91 12/11/18 22:59 99.2 F 70 16 136/72 94 12/11/18 20:47 72 12/11/18 19:54 99.0 F 70 20 116/58 97 Intake and Output 12/12/18 12/12/18 12/12/18 07:59 15:59 23:59 Intake Total 0 / 0 360 / 360 Output Total 375 / 375 200 / 200 Balance -375 / -375 160 / 160 Intake: Oral 0 / 0 360 / 360 Output: Urine 375 / 375 200 / 200 Other: Meal Lunch Percent of Meal Consumed 100% Weight 100.1 kg Blood Glucose* 194 237 Patient Weight 12/12/18 23:59 Weight 100.1 kg - General Appearance General appearance: Present: well-developed, well-nourished EENT: Present: ATNC, mucous membranes moist Neck: Present: no JVD, supple Respiratory: Present: clear Cardiology: Present: no edema, normal S1, normal S2 Dialysis Vascular Access: Arteriovenous Fistula thrill: Yes bruit: Yes Gastrointestinal: Present: no tenderness, no guarding Integumentary: Present: warm and dry Additional Comments: LLE with dressing Neurologic: Present: no focal deficit Musculoskeletal: Present: no deformities Psychiatric: Present: mood/affect appropriate, cooperative - Lab 12/14/18 07:04 12/14/18 07:04 Most recent lab results Calcium 8.9 mg/dL (8.6-10.3) 12/12/18 05:40 Magnesium 1.9 mg/dL (1.6-2.6) 12/10/18 08:27 Consult Discharge Plan - Plan Instructions: Cephalexin (By mouth), Benzonatate (By mouth), Laxative, Stool Softeners (By mouth), Ipratropium/Albuterol (By breathing), Fluticasone (Into the nose), Cellulitis (DC), Diabetic Foot Care (DC), Diabetes Mellitus Type 2 in Adults (DC) Additional Instructions: 1. Wash left foot with warm water and mild soap daily. 2. [place] wound with betadine. 3. Cover with large bandaid. 4. Follow up with [facility] or [facility] in 1 week to evaluate wound healing. Referrals: [facility],PCP [Primary Care Provider] - 12/21/18 10:45 am Prescriptions: Ipratropium/Albuterol Neb [Duoneb] 3 ml IH [id number] PRN #160 inhsol PRN Reason: Shortness Of Breath/Wheezing Benzonatate [Tessalon] 200 mg PO TID PRN #30 capsule PRN Reason: Cough cephALEXin [Keflex] 500 mg PO DAILY 10 Days capsule Docusate [Colace] 100 mg PO BID PRN #30 capsule PRN Reason: Constipation Fluticasone Propionate Nasal [Flonase] 50 mcg NS DAILY #1 bottle Menthol [Cough Drops] 9.1 mg PO Q2H PRN #50 lozenge PRN Reason: Cough
--- NOTE | 2018-12-12 16:22 | Nephrology Progress Note ---
Date of Encounter: 12/12/18 Time of Encounter: 12:00 - Assessment and Plan (1) ESRD (end stage renal disease) on dialysis Status: Chronic Lytes stable with sodium at 132. will monitor Continue renal diet Next HD planned for friday if still hospitalized (2) Diabetic foot ulcer Status: Acute Podiatry following. Wound care as needed Seen by vascular surgery, no intervention needed Qualifiers: Diabetic foot ulcer location: other Diabetes mellitus type: type 2 Laterality: left Non-pressure ulcer stage: unspecified non-pressure ulcer stage Qualified Code(s): E11.621 - Type 2 diabetes mellitus with foot ulcer; L97.529 - Non-pressure chronic ulcer of other part of left foot with unspecified severity (3) HHNC (hyperglycemic hyperosmolar nonketotic coma) Status: Resolved (4) Anemia Status: Acute HGb low but stable, will monitor Qualifiers: Anemia type: due to chronic kidney disease Chronic kidney disease stage: on chronic dialysis Qualified Code(s): N18.6 - End stage renal disease; D63.1 - Anemia in chronic kidney disease; Z99.2 - Dependence on renal dialysis Subjective Interval history: Pt seen and examined s/p Hd yesterday with no complaints Objective - Vital Signs Vital signs: Vital Signs Temp Pulse Resp BP Pulse Ox 12/12/18 12:07 70 12/12/18 11:48 97.9 F 71 16 113/63 94 12/12/18 08:34 96 12/12/18 07:45 98.7 F 76 16 109/56 96 12/12/18 04:29 98.1 F 99 18 141/73 91 12/11/18 22:59 99.2 F 70 16 136/72 94 12/11/18 20:47 72 12/11/18 19:54 99.0 F 70 20 116/58 97 Intake and Output 12/12/18 12/12/18 12/12/18 07:59 15:59 23:59 Intake Total 0 / 0 360 / 360 Output Total 375 / 375 200 / 200 Balance -375 / -375 160 / 160 Intake: Oral 0 / 0 360 / 360 Output: Urine 375 / 375 200 / 200 Other: Meal Lunch Percent of Meal Consumed 100% Weight 100.1 kg Blood Glucose* 194 237 Patient Weight 12/12/18 23:59 Weight 100.1 kg - General Appearance General appearance: Present: well-developed, well-nourished EENT: Present: ATNC, mucous membranes moist Neck: Present: no JVD, supple Respiratory: Present: clear Cardiology: Present: no edema, normal S1, normal S2 Dialysis Vascular Access: Arteriovenous Fistula thrill: Yes bruit: Yes Gastrointestinal: Present: no tenderness, no guarding Integumentary: Present: warm and dry Additional Comments: LLE with dressing Neurologic: Present: no focal deficit Musculoskeletal: Present: no deformities Psychiatric: Present: mood/affect appropriate, cooperative - Lab 12/14/18 07:04 12/14/18 07:04 Most recent lab results Calcium 8.9 mg/dL (8.6-10.3) 12/12/18 05:40 Magnesium 1.9 mg/dL (1.6-2.6) 12/10/18 08:27 Consult Discharge Plan - Plan Instructions: Cephalexin (By mouth), Benzonatate (By mouth), Laxative, Stool Softeners (By mouth), Ipratropium/Albuterol (By breathing), Fluticasone (Into the nose), Cellulitis (DC), Diabetic Foot Care (DC), Diabetes Mellitus Type 2 in Adults (DC) Additional Instructions: 1. Wash left foot with warm water and mild soap daily. 2. [place] wound with betadine. 3. Cover with large bandaid. 4. Follow up with [facility] or [facility] in 1 week to evaluate wound healing. Referrals: [facility],PCP [Primary Care Provider] - 12/21/18 10:45 am Prescriptions: Ipratropium/Albuterol Neb [Duoneb] 3 ml IH [id number] PRN #160 inhsol PRN Reason: Shortness Of Breath/Wheezing Benzonatate [Tessalon] 200 mg PO TID PRN #30 capsule PRN Reason: Cough cephALEXin [Keflex] 500 mg PO DAILY 10 Days capsule Docusate [Colace] 100 mg PO BID PRN #30 capsule PRN Reason: Constipation Fluticasone Propionate Nasal [Flonase] 50 mcg NS DAILY #1 bottle Menthol [Cough Drops] 9.1 mg PO Q2H PRN #50 lozenge PRN Reason: Cough
[2018-12-12] MEDS: Cefepime HCl 1,000 MG in Water for inj. (sterile) 20 ML 10 ML IVP SCH (17:10)
[2018-12-12] MEDS: Ipratropium/Albuterol Neb 3 ML IH PRN (21:30)
[2018-12-13] MEDS: *HR* OxyCODONE Immed Rel 5 MG TABLET PO PRN ×3 (01:47→20:45)
[2018-12-13 04:36] LABS: Basophils % 0.3 %; Eosinophils # 0.1 K/mcL (0.0-0.6); Eosinophils % 1.9 %; Hematocrit 23.6 % (37.5-50.1); Hemoglobin 8.5 g/dL (12.9-16.9); Immature Granulocytes % 2.3 % (0-4); Lymphocytes # 0.4 K/mcL (0.6-4.6); Lymphocytes % 14.1 %; Mean Corpuscular Hemoglobin 31.3 pg (28.0-33.3); Mean Corpuscular Volume 86.8 fL (83.0-100.0); Mean Platelet Volume 12.2 fL (9.4-12.4); Monocytes # 0.4 K/mcL (0.0-1.3); Monocytes % 13.8 %; Neutrophils # 2.1 K/mcL (1.6-8.9); Nucleated Red Blood Cells 2.3 /100 WBC (0); Red Blood Count 2.72 M/mcL (4.19-5.50); Red Cell Distribution Width 13.4 % (11.5-14.5); Segmented Neutrophils % 67.6 %
[2018-12-13 04:38] LABS: Platelet Count 69 K/mcL (140-400)
[2018-12-13] MEDS: Levothyroxine 25 MCG TABLET PO SCH (06:02)
[2018-12-13] MEDS: Loratadine 10 MG TABLET PO SCH (08:18)
[2018-12-13] MEDS: Insulin DETEMIR 100 UNIT/ML X5UNITS SQ SCH ×2 (08:18→20:46)
[2018-12-13] MEDS: Insulin LISPRO 300 UNITS/3 ML VIAL SQ SCH ×3 (08:18→17:08)
[2018-12-13] MEDS: Furosemide 20 MG TABLET PO SCH ×2 (08:19→16:12)
[2018-12-13] MEDS: Aspirin Enteric Coated 81 MG Tablet PO SCH (08:19)
[2018-12-13] MEDS: Isosorbide MONOnitrate (24 HR) 30 MG TAB.ER.24H PO SCH (08:19)
[2018-12-13] MEDS: Famotidine 20 MG TABLET PO SCH (08:21)
[2018-12-13] MEDS: Calcium Acetate 667 MG CAPSULE PO SCH ×3 (08:21→17:12)
[2018-12-13] MEDS: Gabapentin 300 MG CAPSULE PO SCH ×2 (08:21→20:46)
[2018-12-13] MEDS: Fluticasone Propionate Nasal 50 MCG/SPRAY BOTTLE NS SCH (08:21)
[2018-12-13] MEDS: Renal Vitamin 1 CAP CAPSULE PO SCH (08:21)
[2018-12-13] MEDS ORDERED: Insulin DETEMIR 100 UNIT/ML X5UNITS SQ ONE (11:38)
[2018-12-13] MEDS ORDERED: Insulin LISPRO 300 UNITS/3 ML VIAL SQ SCH ×2 (11:38)
--- NOTE | 2018-12-13 11:38 | Internal Med Progress Note ---
Hospitalist Progress Note - Encounter Date of Encounter: 12/13/18 Time of Encounter: 09:50 - Subjective Interval History: Patient reports slow improvement in his nasal congestion and upper respiratory symptoms. He denies any chest pain or palpitations. No nausea or vomiting. No fever or chills reported overnight. - Exam Vitals: Temp Pulse Resp BP Pulse Ox 98.4 F 63 16 111/52 96 12/13/18 07:45 12/13/18 07:45 12/13/18 07:45 12/13/18 07:45 12/13/18 08:00 Exam: General: Patient is alert, no acute distress, oriented x 3 ENT: Mucous membranes moist Respiratory: Good respiratory effort. Normal breath sounds. No wheezing or crackles. Cardiovascular: Regular rate and rhythm. s1 and s2 normal No clicks, rubs, gallops, or murmurs. No pedal edema Abdomen: Abdomen is soft, nontender. Bowel sounds are present Musculoskeletal: Spontaneously moving all extremities Skin: warm, dry, intact. Left foot currently bandaged. No discharge reported. Neuro: Alert oriented x 3 normal cranial nerves, no focal deficits - Assessment and Plan (1) Diabetic foot ulcer Current Visit: Yes Status: Acute Assessment and Plan: Continue current antibiotics. Wound cultures have not grown any pathogens. Possible transition to oral antibiotics and discharge tomorrow. Moderate risk for complications (2) Type 2 diabetes mellitus with diabetic chronic kidney disease Current Visit: Yes Status: Chronic Assessment and Plan: Blood sugars elevated this morning. We will increase insulin regimen (3) Anemia Current Visit: Yes Status: Chronic Assessment and Plan: Due to chronic kidney disease. Stable hemoglobin levels. (4) Diastolic CHF, chronic Current Visit: Yes Status: Chronic Assessment and Plan: Chronic. Continue volume management with dialysis and Lasix. (5) CAD (coronary artery disease), [place] coronary artery Current Visit: No Status: Chronic Assessment and Plan: Continue aspirin, Lipitor, Plavix, Lopressor (6) Thrombocytopenia Current Visit: Yes Status: Acute Assessment and Plan: Platelets 69. Stable. Avoiding subcutaneous heparin for DVT prophylaxis. (7) HLD (hyperlipidemia) Current Visit: Yes Status: Chronic Assessment and Plan: Continue Lipitor (8) Diabetic ketoacidosis Current Visit: Yes Status: Resolved (9) ESRD (end stage renal disease) on dialysis Current Visit: Yes Status: Chronic Assessment and Plan: Continue dialysis per nephrology recommendations. (10) DVT prophylaxis Current Visit: Yes Status: Acute (11) Sepsis Current Visit: Yes Status: Acute Assessment and Plan: Due to acute left foot diabetic ulcer infection. Sepsis appears to be resolved at this time. - Time Spent with Patient Total time spent is greater than 50% in coordination of care (as documented) at patient's floor/unit and/or counseling patient: Internal Medicine: Result - Labs CBC & Chem 7: 12/13/18 04:23 12/12/18 05:40 Labs: Short CBC 12/13/18 Range/Units 04:23 WBC 3.1 L (4.3-11.1) K/mcL Hgb 8.5 L (12.9-16.9) g/dL Hct 23.6 L (37.5-50.1) % Plt Count 69 L (140-400) K/mcL Neutrophils # 2.1 (1.6-8.9) K/mcL - ABG Interpretation ABG results: PT/INR, D-dimer PT 12.2 Seconds (9.4-12.1) H 12/11/18 06:39 Consult Discharge Plan - Plan [facility]errals: [facility] [Primary Care Provider] - (1) Diabetic foot ulcer Qualifiers: Diabetic foot ulcer location: other Diabetes mellitus type: type 2 Laterality: left Non-pressure ulcer stage: unspecified non-pressure ulcer stage Qualified Code(s): E11.621 - Type 2 diabetes mellitus with foot ulcer; L97.529 - Non-pressure chronic ulcer of other part of left foot with unspecified severity (2) Type 2 diabetes mellitus with diabetic chronic kidney disease 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: 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 transplanted heart: [place] heart Associated angina: with unstable angina Qualified Code(s): I25.110 - Atherosclerotic heart disease of [place] coronary artery with unstable angina pectoris (7) HLD (hyperlipidemia) Qualifiers: Hyperlipidemia type: pure hypercholesterolemia Qualified Code(s): E78.00 - Pure hypercholesterolemia, unspecified; E78.0 - Pure hypercholesterolemia (8) Diabetic ketoacidosis Qualifiers: Diabetes mellitus type: type 2 Diabetes mellitus complication detail: without coma Qualified Code(s): E11.10 - Type 2 diabetes mellitus with ketoacidosis without coma (11) Sepsis Qualifiers: Sepsis type: sepsis due to unspecified organism Qualified Code(s): A41.9 - Sepsis, unspecified organism
[2018-12-13] MEDS ORDERED: MOM Conc 10 ML UD.LIQ PO PRN (15:25)
[2018-12-13] MEDS: Cefepime HCl 1,000 MG in Water for inj. (sterile) 20 ML 10 ML IVP SCH (16:12)
--- NOTE | 2018-12-14 | Nephrology Progress Note ---
Date of Encounter: 12/13/18 Time of Encounter: 12:00 - Assessment and Plan (1) ESRD (end stage renal disease) on dialysis Status: Chronic HD planned for tomorrow Lytes stable Continue renal diet (2) Diabetic foot ulcer Status: Acute Podiatry following. Wound care as needed Seen by vascular surgery yesterday, no intervention needed Qualifiers: Diabetic foot ulcer location: other Diabetes mellitus type: type 2 Laterality: left Non-pressure ulcer stage: unspecified non-pressure ulcer stage Qualified Code(s): E11.621 - Type 2 diabetes mellitus with foot ulcer; L97.529 - Non-pressure chronic ulcer of other part of left foot with unspecified severity (3) HHNC (hyperglycemic hyperosmolar nonketotic coma) Status: Resolved (4) Anemia Status: Acute HGb low but stable, will monitor Qualifiers: Anemia type: due to chronic kidney disease Chronic kidney disease stage: on chronic dialysis Qualified Code(s): N18.6 - End stage renal disease; D63.1 - Anemia in chronic kidney disease; Z99.2 - Dependence on renal dialysis Subjective Interval history: Pt seen and examined with no complaints Objective - Vital Signs Vital signs: Vital Signs Temp Pulse Resp BP Pulse Ox 12/13/18 20:54 67 12/13/18 19:48 98.3 F 67 18 124/69 94 12/13/18 16:36 98.3 F 62 16 118/69 96 12/13/18 11:51 98.6 F 67 16 120/58 94 12/13/18 11:33 69 12/13/18 08:00 96 12/13/18 07:45 98.4 F 63 16 111/52 96 12/13/18 02:32 99 F 68 18 127/64 95 Intake and Output 12/13/18 12/13/18 12/13/18 07:59 15:59 23:59 Intake Total 360 / 360 Output Total 150 / 150 100 / 100 Balance -150 / -150 260 / 260 Intake: Oral 360 / 360 Output: Urine 150 / 150 100 / 100 Other: Meal Lunch Percent of Meal Consumed 90% Weight 101.3 kg Blood Glucose* 429 291 184 Patient Weight 12/13/18 23:59 Weight 101.3 kg - General Appearance General appearance: Present: well-developed, well-nourished EENT: Present: ATNC, mucous membranes moist Neck: Present: no JVD, supple Respiratory: Present: clear Cardiology: Present: no edema, normal S1, normal S2 Dialysis Vascular Access: Arteriovenous Fistula thrill: Yes bruit: Yes Gastrointestinal: Present: no tenderness, no guarding Integumentary: Present: warm and dry Additional Comments: LLE with dressing Neurologic: Present: no focal deficit Musculoskeletal: Present: no deformities Psychiatric: Present: mood/affect appropriate, cooperative - Lab 12/14/18 07:04 12/14/18 07:04 Most recent lab results Calcium 8.9 mg/dL (8.6-10.3) 12/12/18 05:40 Magnesium 1.9 mg/dL (1.6-2.6) 12/10/18 08:27 Consult Discharge Plan - Plan Instructions: Cephalexin (By mouth), Benzonatate (By mouth), Laxative, Stool Softeners (By mouth), Ipratropium/Albuterol (By breathing), Fluticasone (Into th e nose), Cellulitis (DC), Diabetic Foot Care (DC), Diabetes Mellitus Type 2 in Adults (DC) Additional Instructions: 1. Wash left foot with warm water and mild soap daily. 2. [place] wound with betadine. 3. Cover with large bandaid. 4. Follow up with [facility] or [facility] in 1 week to evaluate wound healing. Referrals: [facility],PCP [Primary Care Provider] - 12/21/18 10:45 am Prescriptions: Ipratropium/Albuterol Neb [Duoneb] 3 ml IH [id number] PRN #160 inhsol PRN Reason: Shortness Of Breath/Wheezing Benzonatate [Tessalon] 200 mg PO TID PRN #30 capsule PRN Reason: Cough cephALEXin [Keflex] 500 mg PO DAILY 10 Days capsule Docusate [Colace] 100 mg PO BID PRN #30 capsule PRN Reason: Constipation Fluticasone Propionate Nasal [Flonase] 50 mcg NS DAILY #1 bottle Menthol [Cough Drops] 9.1 mg PO Q2H PRN #50 lozenge PRN Reason: Cough
[2018-12-14] MEDS: Ipratropium/Albuterol Neb 3 ML IH PRN (04:51)
[2018-12-14] MEDS: Levothyroxine 25 MCG TABLET PO SCH (05:54)
[2018-12-14 07:48] LABS: Basophils % 0.3 %; Eosinophils # 0.1 K/mcL (0.0-0.6); Eosinophils % 1.5 %; Hematocrit 23.8 % (37.5-50.1); Immature Granulocytes % 0.9 % (0-4); Lymphocytes # 0.6 K/mcL (0.6-4.6); Lymphocytes % 16.8 %; Mean Corpuscular HGB Conc 33.6 g/dL (31.6-35.5); Mean Corpuscular Hemoglobin 30.7 pg (28.0-33.3); Mean Corpuscular Volume 91.2 fL (83.0-100.0); Mean Platelet Volume 12.1 fL (9.4-12.4); Monocytes # 0.4 K/mcL (0.0-1.3); Monocytes % 10.9 %; Neutrophils # 2.4 K/mcL (1.6-8.9); Red Blood Count 2.61 M/mcL (4.19-5.50); Red Cell Distribution Width 13.4 % (11.5-14.5); Segmented Neutrophils % 69.6 %
[2018-12-14 07:50] LABS: Platelet Count 56 K/mcL (140-400)
[2018-12-14 08:08] LABS: Potassium 4.1 mEq/L (3.5-5.1)
[2018-12-14] MEDS: Renal Vitamin 1 CAP CAPSULE PO SCH (08:26)
[2018-12-14] MEDS: Aspirin Enteric Coated 81 MG Tablet PO SCH (08:26)
[2018-12-14] MEDS: Loratadine 10 MG TABLET PO SCH (08:26)
[2018-12-14] MEDS: Fluticasone Propionate Nasal 50 MCG/SPRAY BOTTLE NS SCH (08:26)
[2018-12-14] MEDS: Isosorbide MONOnitrate (24 HR) 30 MG TAB.ER.24H PO SCH (08:26)
[2018-12-14] MEDS: Calcium Acetate 667 MG CAPSULE PO SCH ×2 (08:26→13:11)
[2018-12-14] MEDS: Gabapentin 300 MG CAPSULE PO SCH (08:26)
[2018-12-14] MEDS: Furosemide 20 MG TABLET PO SCH (08:27)
[2018-12-14] MEDS: Famotidine 20 MG TABLET PO SCH (08:27)
[2018-12-14] MEDS: Insulin LISPRO 300 UNITS/3 ML VIAL SQ SCH ×2 (08:32→13:12)
[2018-12-14] MEDS: Insulin DETEMIR 100 UNIT/ML X5UNITS SQ SCH (08:37)
[2018-12-14] MEDS ORDERED: 0.9 % Sodium Chloride 250 ML IVC PRN (08:46)
[2018-12-14] MEDS ORDERED: *HR* Heparin 10,000 UNIT/10 ML VIAL IV PRN ×2 (08:46)
--- NOTE | 2018-12-14 08:49 | Electrocardiograph Report ---
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
[2018-12-14] MEDS ORDERED: 0.9 % Sodium Chloride 1,000 ML PRIME SCH (09:00)
--- NOTE | 2018-12-14 09:50 | Electrocardiograph Report ---
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
--- NOTE | 2018-12-14 11:57 | Discharge Summary ---
<Abigail Perdomo - Last Filed: 12/14/18 12:56> Orders not resulted at time of discharge: Pending orders 12/10/18 03:52 Culture,Blood [BC] Stat 12/11/18 16:00 Culture,Anaerobic [RM] Routine Date of Encounter: 12/14/18 Time of Encounter: 09:45 - Discharge Diagnosis (1) Diabetic foot ulcer Status: Acute Qualifiers: Diabetic foot ulcer location: other Diabetes mellitus type: type 2 Laterality: left Non-pressure ulcer stage: unspecified non-pressure ulcer stage Qualified Code(s): E11.621 - Type 2 diabetes mellitus with foot ulcer; L97.529 - Non-pressure chronic ulcer of other part of left foot with unspecified severity (2) Type 2 diabetes mellitus with diabetic chronic kidney disease Status: Chronic Qualifiers: Diabetes mellitus manager terminal insulin use: with correction use Chronic kidney disease stage: on chronic dialysis Qualified Code(s): E11.22 - Type 2 diabetes mellitus with diabetic chronic kidney disease; N18.6 - End stage renal disease; Z79.4 - longterm (current) use of insulin; Z99.2 - Dependence on renal dialysis (3) Anemia Status: Chronic Qualifiers: Anemia type: due to chronic kidney disease Chronic kidney disease stage: on chronic dialysis Qualified Code(s): N18.6 - End stage renal disease; D63.1 - Anemia in chronic kidney disease; Z99.2 - Dependence on renal dialysis (4) Diastolic CHF, chronic Status: Chronic (5) CAD (coronary artery disease), [place] coronary artery Status: Chronic Qualifiers: [place] vs. transplanted heart: [place] heart Associated angina: with unstable angina Qualified Code(s): I25.110 - Atherosclerotic heart disease of [place] coronary artery with unstable angina pectoris (6) Thrombocytopenia Status: Acute (7) HLD (hyperlipidemia) Status: Chronic Qualifiers: Hyperlipidemia type: pure hypercholesterolemia Qualified Code(s): E78.00 - Pure hypercholesterolemia, unspecified; E78.0 - Pure hypercholesterolemia (8) Diabetic ketoacidosis Status: Resolved Qualifiers: Diabetes mellitus type: type 2 Diabetes mellitus complication detail: without coma Qualified Code(s): E11.10 - Type 2 diabetes mellitus with ketoacidosis without coma (9) ESRD (end stage renal disease) on dialysis Status: Chronic (10) DVT prophylaxis Status: Acute (11) Sepsis Status: Acute Qualifiers: Sepsis type: sepsis due to unspecified organism Qualified Code(s): A41.9 - Sepsis, unspecified organism Hospital course: Mr. Velarde is a 63 year old male Discharge discussed with: patient - Time Spent with Patient Total time spent providing and/or coordinating discharge services: Less than 30 minutes (10 min) - Discharge Medications Prescriptions: Ipratropium/Albuterol Neb [Duoneb] 3 ml IH [id number] PRN #160 inhsol PRN Reason: Shortness Of Breath/Wheezing Benzonatate [Tessalon] 200 mg PO TID PRN #30 capsule PRN Reason: Cough cephALEXin [Keflex] 500 mg PO DAILY 10 Days capsule Docusate [Colace] 100 mg PO BID PRN #30 capsule PRN Reason: Constipation Fluticasone Propionate Nasal [Flonase] 50 mcg NS DAILY #1 bottle Menthol [Cough Drops] 9.1 mg PO Q2H PRN #50 lozenge PRN Reason: Cough Home Medications: Calcium Acetate [Phos-LO] 1,334 mg PO TIDWM 10/04/16 [History] Pantoprazole Sodium [Protonix] 40 mg PO DAILY 10/04/16 [History] Ranitidine HCl [Heartburn Relief] 150 mg PO DAILY 10/04/16 [History] Insulin ASPART [NovoLOG] 45 unit SQ BIDWM 04/25/17 [History] Clopidogrel [Plavix] 75 mg PO DAILY #30 tablet 04/28/17 [Rx] Insulin Glargine,Hum.rec.anlog [Lantus Solostar] 90 unit SQ BID 01/29/18 [History] Renal Vitamin [Renal Caps Softgel] 1 mg PO DAILY 01/29/18 [History] OxyCODONE Immed Rel [Roxicodone 5 MG] 10 mg PO Q6HR PRN 04/27/18 [History] Isosorbide MONOnitrate (24 HR) [Imdur] 30 mg PO DAILY tab.er.24h 04/29/18 [Rx] Metoprolol [Lopressor] 12.5 mg PO BID tablet 04/29/18 [Rx] Atorvastatin Calcium [Lipitor] 40 mg PO HS 12/10/18 [History] Buspirone HCl [Buspar] 5 mg PO TID 12/10/18 [History] Cetirizine HCl [24Hour Allergy] 5 mg PO DAILY 12/10/18 [History] Furosemide [Lasix] 60 mg PO BID 12/10/18 [History] Gabapentin [Neurontin] 300 mg PO BID 12/10/18 [History] Levothyroxine [Synthroid] 25 mcg PO QAM 12/10/18 [History] Melatonin/Pyridoxine HCl (B6) [Melatonin 3 mg Tablet] 3 mg PO HS PRN 12/10/18 [History] Paroxetine [Paxil] 30 mg PO QAM 12/10/18 [History] Acetaminophen [Tylenol] 650 mg PO Q6HR PRN tablet 12/14/18 [Rx] Aspirin Enteric Coated [Aspirin EC] 81 mg PO DAILY tablet. 12/14/18 [Rx] Benzonatate [Tessalon] 200 mg PO TID PRN #30 capsule 12/14/18 [Rx] Docusate [Colace] 100 mg PO BID PRN #30 capsule 12/14/18 [Rx] Fluticasone Propionate Nasal [Flonase] 50 mcg NS DAILY #1 bottle 12/14/18 [Rx] Ipratropium/Albuterol Neb [Duoneb] 3 ml IH [id number] PRN #160 inhsol 12/14/18 [Rx] Menthol [Cough Drops] 9.1 mg PO Q2H PRN #50 lozenge 12/14/18 [Rx] cephALEXin [Keflex] 500 mg PO DAILY 10 Days capsule 12/14/18 [Rx] Allergies/Adverse Reactions: Allergy/AdvReac Type Severity Reaction Status Date / Time codeine Allergy Unknown Hives Verified 05/29/18 22:26 methadone [Methadone] Allergy Unknown Rash Verified 05/29/18 22:26 Penicillins [PCN] Allergy Unknown Rash Verified 05/29/18 22:26 promethazine [From Phenergan] Allergy Unknown Hives Verified 05/29/18 22:26 trazodone Allergy Unknown Itching Verified 05/29/18 22:26 Date of admission: 12/10/18 17:49 [facility] physician: [facility] Consults: 12/10/18 03:32 Consult to Podiatry [CONS] Stat Consulting Provider: Pod[facility] Reason for Consult: Diabetic ulcer Call Completed: No 12/10/18 06:23 Consult to Nephrology [CONS] Routine Consulting Provider: [facility]/TANK/RICKY Reason for Consult: ESRD, dialysis Call Completed: No 12/11/18 07:00 Consult to Dialysis [CONS] ONCE 12/11/18 08:30 Consult to Nurse Navigator [CONS] Routine Comment: ESRD 12/11/18 12:06 Consult to Infectious Diseases [CONS] Routine Consulting Provider: [facility] Reason for Consult: DM foot ulcer, ESRD, antibiotic reccs Time Notified: 12:06 Call Completed: Yes 12/12/18 11:44 Consult to Vascular Surgery [CONS] Routine Consulting Provider: [facility] Reason for Consult: Elevated JENNIFER concern for non compressible/ partially compressible vessels Time Notified: 11:45 Call Completed: Yes 12/14/18 09:00 Consult to Dialysis [CONS] ONCE - Constitutional Vitals: Temp Pulse Resp BP Pulse Ox 98.0 F 64 18 122/69 94 12/14/18 08:25 12/14/18 08:25 12/14/18 08:25 12/14/18 08:25 12/14/18 08:25 General appearance: Present: cooperative, A&O X 3, no acute distress, answers questions appropriately - Neck Neck exam general surgery: Present: supple, trachea midline. Absent: lymphadenopathy - Respiratory Respiratory exam: Present: CTAB. Absent: accessory muscle use, rales, rhonchi, wheezes - Cardiovascular Cardiovascular exam: Present: RRR, +S1, +S2. Absent: diastolic murmur, gallop, rubs, systolic murmur - Extremities Exam Additional comments: Left foot currently bandaged - Patient Status Disposition: Home, Self-Care Condition: Fair - Discharge Instructions Instructions: Cellulitis (DC), Diabetic Foot Care (DC), Diabetes Mellitus Type 2 in Adults (DC) Follow Up With: [facility] [Primary Care Provider] - 12/21/18 10:45 am - Attending Attestation I saw evaluated and examined this patient and my medical decision-making was reviewed with the Resident Physician, Reese Guardado. I agree with the documented findings, disposition and treatment plan as described except to any changes set forth below. We independently had [id number] contact with the patient. Patient with history of end-stage renal disease on hemodialysis, diabetes, thrombocytopenia and anemia was hospitalized here initially with diabetic ketoacidosis and acute cellulitis along with an ulcer in his left foot. Patient's blood sugar was initially reported to be greater than 2400 but a recheck showed it to be around 600. Patient was placed on IV insulin and IV fluids. He was also given IV antibiotics. His diabetic ketoacidosis resolved soon and patient was transitioned to subcutaneous insulin. He then developed episodes of nasal congestion and sinus pressure. Respiratory infection panel was positive for entero/rhinovirus. Patient was treated symptomatically for this. His wound was evaluated by podiatry and there is bedside debridement was done. Wound cultures have been positive for staph aureus that is pansensitive. Infectious disease is also been helping manage the patient's care. Today patient is doing much better and is clinically stable to be discharged home on oral antibiotics. <Reese Guardado - Last Filed: 12/14/18 13:53> - NOTES TO OUTPATIENT PROVIDER Notes to Outpatient Provider: Patient admitted with an episode of DKA in the setting of left diabetic foot ulcer, cellulitis, and Enterovirus/rhinovirus. Cultures were positive for MSSA. Patient to continue Keflex 500 mg PO daily, given after dialysis until 12/24/18. Orders not resulted at time of discharge: Pending orders 12/10/18 03:52 Culture,Blood [BC] Stat 12/11/18 16:00 Culture,Anaerobic [RM] Routine Date of Encounter: 12/14/18 Time of Encounter: 10:30 - Discharge Diagnosis (1) Sepsis Priority: Primary Status: Acute Qualifiers: Sepsis type: sepsis due to unspecified organism Qualified Code(s): A41.9 - Sepsis, unspecified organism (2) Diabetic foot ulcer Priority: Secondary Status: Acute Qualifiers: Diabetic foot ulcer location: other Diabetes mellitus type: type 2 Lat erality: left Non-pressure ulcer stage: unspecified non-pressure ulcer stage Qualified Code(s): E11.621 - Type 2 diabetes mellitus with foot ulcer; L97.529 - Non-pressure chronic ulcer of other part of left foot with unspecified severity (3) Diabetic ketoacidosis Priority: Secondary Status: Resolved Qualifiers: Diabetes mellitus type: type 2 Diabetes mellitus complication detail: without coma Qualified Code(s): E11.10 - Type 2 diabetes mellitus with ketoacidosis without coma (4) Enterovirus infection Priority: Secondary Status: Acute (5) ESRD (end stage renal disease) on dialysis Priority: Secondary Status: Chronic (6) Type 2 diabetes mellitus with diabetic chronic kidney disease Priority: Secondary Status: Chronic Qualifiers: Diabetes mellitus manager terminal insulin use: with correction use Chronic kidney disease stage: on chronic dialysis Qualified Code(s): E11.22 - Type 2 diabetes mellitus with diabetic chronic kidney disease; N18.6 - End stage renal disease; 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 transplanted heart: [place] heart Associated angina: with unstable angina Qualified Code(s): I25.110 - Atherosclerotic heart disease of [place] coronary artery with unstable angina pectoris (10) HLD (hyperlipidemia) Priority: Secondary Status: Chronic Qualifiers: Hyperlipidemia type: pure hypercholesterolemia Qualified Code(s): E78.00 - Pure hypercholesterolemia, unspecified; E78.0 - Pure hypercholesterolemia (11) Thrombocytopenia Priority: Secondary Status: Acute (12) DVT prophylaxis Priority: Secondary Status: Acute Hospital course: Mr. Velarde is a 63 [facility] with a past medical history of left great toe amputation, DM, CAD, HTN, HLD, and ESRD with HD MWF who presented complaining of left foot ulcer, redness, and swelling getting worse for the past 4 days. Patient reported associated cold-like symptoms with runny nose and cough. In the ED, patient's BMP revealed a glucose level > 2400 and he was found to be in DKA. Patient was started on insulin drip and transferred to ICU stepdown unit. Patient met sepsis criteria with leukocytosis and tachycardia. Nephrology, infectious disease, and podiatry were consulted. Wound cultures were positive for MSSA. Patient received vancomycin and cefepime for 4 days was transitioned to oral Keflex to be given daily after hemodialysis to complete 14 days of therapy. Respiratory infectious panel was positive for enterovirus, continue symptomatic therapy. Discharge discussed with: patient - Time Spent with Patient Total time spent providing and/or coordinating discharge services: Date of admission: 12/10/18 17:49 Primary care physician: [facility] Consults: 12/10/18 03:32 Consult to Podiatry [CONS] Stat Consulting Provider: [facility] Reason for Consult: Diabetic ulcer Call Completed: No 12/10/18 06:23 Consult to Nephrology [CONS] Routine Consulting Provider: [facility]/MILKA/TANK/RICKY Reason for Consult: ESRD, dialysis Call Completed: No 12/11/18 07:00 Consult to Dialysis [CONS] ONCE 12/11/18 08:30 Consult to Nurse Navigator [CONS] Routine Comment: ESRD 12/11/18 12:06 Consult to Infectious Diseases [CONS] Routine Consulting Provider: [facility] Reason for Consult: DM foot ulcer, ESRD, antibiotic reccs Time Notified: 12:06 Call Completed: Yes 12/12/18 11:44 Consult to Vascular Surgery [CONS] Routine Consulting Provider: [facility] Reason for Consult: Elevated JENNIFER concern for non compressible/ partially compressible vessels Time Notified: 11:45 Call Completed: Yes 12/14/18 09:00 Consult to Dialysis [CONS] ONCE Discharging clinician: Reese Guardado Anticipated date of discharge: 12/14/18 - Constitutional Vitals: Temp Pulse Resp BP Pulse Ox 98.0 F 64 18 122/69 94 12/14/18 08:25 12/14/18 08:25 12/14/18 08:25 12/14/18 08:25 12/14/18 08:25 General appearance: Present: cooperative, A&O X 3, no acute distress Exam: awake - Head Head exam: Present: atraumatic, normocephalic - Eye Eye exam: Present: PERRL, conjuntiva pink, sclera anicteric Pupils: Present: PERRL - ENT ENT exam: Present: mucous membranes moist, normal oropharynx - Neck Neck exam general surgery: Present: supple, trachea midline. Absent: lymphadenopathy - Respiratory Respiratory exam: Present: CTAB. Absent: accessory muscle use, rales, rhonchi, wheezes - Cardiovascular Cardiovascular exam: Present: RRR, +S1, +S2. Absent: diastolic murmur, gallop, rubs, systolic murmur - GI/Abdominal GI/Abdominal exam: Present: normal bowel sounds, soft, no peritoneal signs. Absent: distended, tenderness - Extremities Exam Extremities exam: Present: warm, radial pulses palpable and symmetrical. Absent: calf tenderness, cyanotic, normal inspection (Left foot dressing C/D/I), pedal edema - Neurological Exam Neurological exam: Present: CN II-XII intact, oriented X3, no focal deficits. Absent: facial droop, speech deficit - Psychiatric Psychiatric exam: Present: normal affect, normal mood - Skin Skin exam: Present: dry Additional comments: Left foot dressing C/D/I - Patient Status Functional capacity at discharge: independent ambulation Overall status at discharge: patient is progressing back to baseline - Diet and Activity Activity: increase activity as tolerated Diet: diabetic diet
[2018-12-14 13:06] VITALS: BP 112/55
--- NOTE | 2018-12-14 15:00 | Infectious Disease Progress No ---
Date of Encounter: 12/14/18 Time of Encounter: 12:50 - Assessment and Plan (1) Sepsis Current Visit: Yes Status: Acute The patient had two SIRS criteria on admission. Likely secondary to viral syndrome and left foot cellulitis. Improved. Blood cultures drawn 12/10/18 are NGTD x 2 sets. Recommendations: Supportive care per the primary team. Continue Cefepime 1 gram IV Q24H. Discontinue Vancomycin. Duration of treatment depends on the clinical picture, but likely a total of 14 days. Can switch to PO keflex 500mg daily (dose-adjusted for HD status) when ready for discharge. Treat through 12/23/18. Wound care per podiatry. Monitor labs and dose-adjust antibiotics. Qualifiers: Sepsis type: sepsis due to unspecified organism Qualified Code(s): A41.9 - Sepsis, unspecified organism (2) Cellulitis Current Visit: Yes Status: Acute Location: Left foot. Causative organism: MSSA. Likely secondary to diabetic foot ulcer. MRI of the left foot shows findings consistent with reactive osteitis, but no OM, and cellulitis. ESR 73, CRP 28. Podiatry consulted. Currently on Vanc and Cefepime. Qualifiers: Site of cellulitis: extremity Site of cellulitis of extremity: lower ex tremity Laterality: left Qualified Code(s): L03.116 - Cellulitis of left lower limb (3) Diabetic foot ulcer Current Visit: Yes Status: Acute Location: Left lateral foot. Etiology unclear. Podiatry consulted. Qualifiers: Diabetic foot ulcer location: other Diabetes mellitus type: type 2 Laterality: left Non-pressure ulcer stage: unspecified non-pressure ulcer sta ge Qualified Code(s): E11.621 - Type 2 diabetes mellitus with foot ulcer; L97.529 - Non-pressure chronic ulcer of other part of left foot with unspecified severity (4) Viral syndrome Current Visit: Yes Status: Acute RIP positive for entero/rhinovirus. Supportive care per the primary team. (5) CAD (coronary artery disease), [place] coronary artery Current Visit: No Status: Chronic Qualifiers: [place] vs. transplanted heart: [place] heart Associated angina: with unstable angina Qualified Code(s): I25.110 - Atherosclerotic heart disease of [place] coronary artery with unstable angina pectoris (6) Diabetes mellitus Current Visit: No Status: Chronic Strict glucose control. 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 - Subjective Interval history: Patient seen and examined. No acute events noted overnight. Patient states he has chronic pain that is at baseline. Denies fevers, chills, or rigors. Denies chest pain or shortness of breath, but reports a somewhat productive cough. Denies nausea, vomiting, or diarrhea. Denies abdominal pain, urinary complaints, or appetite changes. Denies oral thrush or new skin lesions. Infect Dis PN-Objective Data - Labs CBC & Chem 7: 12/14/18 07:04 12/14/18 07:04 Labs: Laboratory Results - last 24 hr 12/13/18 12/13/18 12/13/18 07:49 07:50 09:43 WBC RBC Hgb Hct MCV MCH MCHC RDW Plt Count MPV Immature Gran % Seg Neutrophils % Lymphocytes % Monocytes % Eosinophils % Basophils % Neutrophils # Lymphocytes # Monocytes # Eosinophils # Basophils # Sodium Potassium Chloride Carbon Dioxide BUN Creatinine Est GFR ( Amer) Est GFR (Non-Af Amer) BUN/Creatinine Ratio Glucose POC Glucose 429 H* 425 H* 397 H Calculated Osmolality Calcium Random Vancomycin 12/13/18 12/13/18 12/13/18 11:53 16:39 21:22 WBC RBC Hgb Hct MCV MCH MCHC RDW Plt Count MPV Immature Gran % Seg Neutrophils % Lymphocytes % Monocytes % Eosinophils % Basophils % Neutrophils # Lymphocytes # Monocytes # Eosinophils # Basophils # Sodium Potassium Chloride Carbon Dioxide BUN Creatinine Est GFR ( Amer) Est GFR (Non-Af Amer) BUN/Creatinine Ratio Glucose POC Glucose 291 H 134 H 184 H Calculated Osmolality Calcium Random Vancomycin 12/14/18 12/14/18 12/14/18 07:04 07:04 07:04 WBC 3.4 L RBC 2.61 L Hgb 8.0 L Hct 23.8 L MCV 91.2 MCH 30.7 MCHC 33.6 RDW 13.4 Plt Count 56 L MPV 12.1 Immature Gran % 0.9 Seg Neutrophils % 69.6 Lymphocytes % 16.8 Monocytes % 10.9 Eosinophils % 1.5 Basophils % 0.3 Neutrophils # 2.4 Lymphocytes # 0.6 Monocytes # 0.4 Eosinophils # 0.1 Basophils # 0.0 Sodium 130 L Potassium 4.1 Chloride 95 L Carbon Dioxide 25 BUN 53 H Creatinine 5.83 H Est GFR ( Amer) 12 L Est GFR (Non-Af Amer) 10 L BUN/Creatinine Ratio 9 Glucose 270 H POC Glucose Calculated Osmolality 294 Calcium 9.0 Random Vancomycin 12 12/14/18 13:04 WBC RBC Hgb Hct MCV MCH MCHC RDW Plt Count MPV Immature Gran % Seg Neutrophils % Lymphocytes % Monocytes % Eosinophils % Basophils % Neutrophils # Lymphocytes # Monocytes # Eosinophils # Basophils # Sodium Potassium Chloride Carbon Dioxide BUN Creatinine Est GFR ( Amer) Est GFR (Non-Af Amer) BUN/Creatinine Ratio Glucose POC Glucose 152 H Calculated Osmolality Calcium Random Vancomycin Cultures: Cultures 12/11/18 16:00 Anaerobic Culture - Preliminary Left Foot At this time, no anaerobic growth is present. The culture will be finalized after 5 days of incubation. 12/11/18 16:00 Wound Culture - Final Left Foot Staphylococcus aureus 12/10/18 03:52 Blood Culture - Preliminary Peripheral Venipuncture Culture is incubating and being continuously monitored for growth. Final report to follow. 12/10/18 03:34 Blood Culture - Preliminary Peripheral Venipuncture Culture is incubating and being continuously monitored for growth. Final report to follow. Serology 12/11/18 Range/Units 14:00 Chlamy pneumoniae PCR Not Detected (Not Detect) Adenovirus (PCR) Not Detected (Not Detect) B. pertussis DNA (PCR) Not Detected (Not Detect) B.parapertussis DNA PCR Not Detected (Not Detect) Coronavirus OC43 (PCR) Not Detected (Not Detect) Coronavirus HKU1 (PCR) Not Detected (Not Detect) Coronavirus 229E (PCR) Not Detected (Not Detect) Coronavirus NL63 (PCR) Not Detected (Not Detect) Human Metapneumovir PCR Not Detected (Not Detect) Influenza A (H1) PCR Not Detected (Not Detect) Influ A (H1N1/09) PCR Not Detected (Not Detect) Influenza A (H3) PCR Not Detected (Not Detect) Influenza A Untype (PCR) Not Detected (Not Detect) Influenza Type B (PCR) Not Detected (Not Detect) M.pneumoniae DNA (PCR) Not Detected (Not Detect) Parainfluenza 1 (PCR) Not Detected (Not Detect) Parainfluenza 2 (PCR) Not Detected (Not Detect) Parainfluenza 3 (PCR) Not Detected (Not Detect) Parainfluenza 4 (PCR) Not Detected (Not Detect) RSV (PCR) Not Detected (Not Detect) Entero/Rhino (PCR) DETECTED A (Not Detect) Exam - Constitutional Vitals: Temp Pulse Resp BP Pulse Ox 98.3 F 67 18 112/55 94 12/14/18 13:04 12/14/18 13:04 12/14/18 13:04 12/14/18 13:04 12/14/18 08:25 General appearance: average body habitus, cooperative, no acute distress - Head Head exam: Present: atraumatic, normal inspection, normocephalic - Eye Eye exam: Present: EOMI, normal appearance, PERRL Pupils: Present: normal accommodation - ENT ENT exam: Present: mucous membranes moist - Neck Neck exam: Present: normal inspection - Respiratory Respiratory exam: Present: CTAB. Absent: rales, respiratory distress, rhonchi, wheezes - Cardiovascular Cardiovascular exam: Present: RRR, +S1, +S2 - GI/Abdominal GI/Abdominal exam: Present: normal bowel sounds, soft. Absent: distended, tenderness - Extremities Exam Extremities exam: Absent: joint swelling, normal inspection (Left foot dressing C/D/I.), pedal edema, tenderness - Neurological Exam Neurological exam: Present: alert, oriented X3, no focal deficits - Psychiatric Psychiatric exam: Present: normal affect, normal mood - Skin Skin exam: Present: dry, intact, normal color, warm Consult Discharge Plan - Plan Instructions: Cephalexin (By mouth), Benzonatate (By mouth), Laxative, Stool Softeners (By mouth), Ipratropium/Albuterol (By breathing), Fluticasone (Into the nose), Cellulitis (DC), Diabetic Foot Care (DC), Diabetes Mellitus Type 2 in Adults (DC) [facility] - 12/21/18 10:45 am Prescriptions: Ipratropium/Albuterol Neb [Duoneb] 3 ml IH [id number] PRN #160 inhsol PRN Reason: Shortness Of Breath/Wheezing Benzonatate [Tessalon] 200 mg PO TID PRN #30 capsule PRN Reason: Cough cephALEXin [Keflex] 500 mg PO DAILY 10 Days capsule Docusate [Colace] 100 mg PO BID PRN #30 capsule PRN Reason: Constipation Fluticasone Propionate Nasal [Flonase] 50 mcg NS DAILY #1 bottle Menthol [Cough Drops] 9.1 mg PO Q2H PRN #50 lozenge PRN Reason: Cough
--- NOTE | 2018-12-14 15:25 | Podiatry Progress Note ---
Date of Encounter: 12/14/18 Time of Encounter: 13:45 - Assessment and Plan (1) Diabetic foot ulcer Current Visit: Yes Status: Acute Assessment: Partial thickness diabetic ulcer noted to left MTPJ #5. Does not probe to bone. Wound bed pink in nature. Erythema and edema markedly improved from demarcation line. Palpable pulses DP/PT left foot CFT <3 seconds left foot Left foot warm to touch Blood cultures pending Wound culture returned staph aureus WBC 3.4 ID consulted for management of ATB- appreciate recommendations Foot xray negative for OM ABIs returned non-compressible PT bilateral feet. Otherwise normal. TCPO2 normal MRI negative for OM Plan: Painted ulcer with betadine. Covered with adaptic, 4x4 dry gauze, and kerlex. Tight glycemic control to promote wound healing. Follow up with [facility] or [facility] in 1 week to evaluate wound healing. Agree with PO atb 10-14 days post d/c/ Continue at home dressing changes. Wash foot with warm water and mild soap daily. [place] wound with betadine daily. Cover with large bandaid. Qualifiers: Diabetic foot ulcer location: other Diabetes mellitus type: type 2 Laterality: left Non-pressure ulcer stage: unspecified non-pressure ulcer stage Qualified Code(s): E11.621 - Type 2 diabetes mellitus with foot ulcer; L97.529 - Non-pressure chronic ulcer of other part of left foot with unspecified severity Subjective Interval history: Patient awake sitting on side of bed. Reports he is being discharged today. Denies any fevers, chills, nausea, vomiting, or diarrhea. Denies any chest pain, calf pain, or shortness of breath. Objective - Vital Signs Vital Signs: Vital Signs Temp Pulse Resp BP Pulse Ox 12/14/18 13:04 98.3 F 67 18 112/55 12/14/18 12:48 97.2 F L 18 127/57 12/14/18 12:30 119/66 12/14/18 12:15 125/65 12/14/18 12:00 132/53 12/14/18 11:45 125/56 12/14/18 11:30 123/57 12/14/18 11:15 107/51 12/14/18 11:00 111/42 12/14/18 10:45 107/51 12/14/18 10:30 89/45 12/14/18 10:15 92/48 12/14/18 10:00 92/45 12/14/18 09:45 95/43 12/14/18 09:30 92/44 12/14/18 09:15 97.1 F L 18 106/49 12/14/18 08:25 98.0 F 64 18 122/69 94 12/14/18 07:34 98.0 F 64 18 122/69 94 12/14/18 04:53 14 100 12/14/18 04:16 98.1 F 61 20 128/97 95 12/14/18 00:27 98 F 61 18 132/70 97 12/13/18 20:54 67 12/13/18 19:48 98.3 F 67 18 124/69 94 12/13/18 16:36 98.3 F 62 16 118/69 96 Intake and Output 12/13/18 12/14/18 12/14/18 23:59 07:59 15:59 Intake Total 960 / 960 Output Total 2850 / 2850 Balance -1890 / -1890 Intake: Oral 360 / 360 Intake, Rinseback and Flushes 600 / 600 Output: Urine 250 / 250 Total Dialysis (HD) Output 2600 / 2600 Other: Meal Breakfast Percent of Meal Consumed 100% Weight 102.6 kg Blood Glucose* 184 260 152 Hemodialysis Net Fluid Removed 2000 (mL) Patient Weight 12/14/18 23:59 Weight 102.6 kg - Exam Exam: Constitiutional: Alert and oriented x 3. Well nourished. No acute distress noted Vascular: 2/4 DP/PT LLE, CFT <3 sec to all digits, warm to warm from tibia to to es bilaterally, left hallux amputation Neurologic: Sensation to touch, normal plantar response, abnormal position sense dorsiflexion/plantar flexion Dermatologic: Ulceration noted to left submetatarsal #5, wound bed pink in color. Minimal erythema and edema noted left foot. Musculoskeletal: 4/5 muscle strength and normal tone LLE - Lab Result Diagrams: 12/14/18 07:04 12/14/18 07:04 Labs: Abnormal lab results WBC 3.4 K/mcL (4.3-11.1) L 12/14/18 07:04 RBC 2.61 M/mcL (4.19-5.50) L 12/14/18 07:04 Hgb 8.0 g/dL (12.9-16.9) L 12/14/18 07:04 Hct 23.8 % (37.5-50.1) L 12/14/18 07:04 Plt Count 56 K/mcL (140-400) L 12/14/18 07:04 Nucleated RBCs/100 WBC 2.3 /100 WBC (0) H 12/13/18 04:23 ESR 73 mm/hr (0-10) H 12/10/18 08:00 PT 12.2 Seconds (9.4-12.1) H 12/11/18 06:39 Sodium 130 mEq/L (136-145) L 12/14/18 07:04 Chloride 95 mEq/L (98-107) L 12/14/18 07:04 BUN 53 mg/dL (8-23) H 12/14/18 07:04 Creatinine 5.83 mg/dL (0.70-1.30) H 12/14/18 07:04 Est GFR ( Amer) 12 (> 60) L 12/14/18 07:04 Est GFR (Non-Af Amer) 10 (> 60) L 12/14/18 07:04 Glucose 270 mg/dL (70-105) H 12/14/18 07:04 POC Glucose 152 mg/dL (70-99) H 12/14/18 13:04 Hemoglobin A1c 11.8 % (-5.6) H 12/10/18 08:00 Troponin I 0.07 ng/mL (< 0.04) H* 12/12/18 05:40 C-Reactive Protein 28 mg/L (Less than 10) H 12/10/18 08:27 Entero/Rhino (PCR) DETECTED (Not Detect) A 12/11/18 14:00 Microbiology, Last 48 Hours 12/11/18 16:00 Anaerobic Culture - Preliminary Left Foot At this time, no anaerobic growth is present. The culture will be finalized after 5 days of incubation. 12/11/18 16:00 Wound Culture - Final Left Foot Staphylococcus aureus Consult Discharge Plan - Plan Instructions: Cephalexin (By mouth), Benzonatate (By mouth), Laxative, Stool Softeners (By mouth), Ipratropium/Albuterol (By breathing), Fluticasone (Into the nose), Cellulitis (DC), Diabetic Foot Care (DC), Diabetes Mellitus Type 2 in Adults (DC) Additional Instructions: 1. Wash left foot with warm water and mild soap daily. 2. [place] wound with bet adine. 3. Cover with large bandaid. 4. Follow up with [place] [facility] or [place] [facility] in 1 week to evaluate wound healing. [facility]Primary Care Provider[facility] - 12/21/18 10:45 am Prescriptions: Ipratropium/Albuterol Neb [Duoneb] 3 ml IH [id number] PRN #160 inhsol PRN Reason: Shortness Of Breath/Wheezing Benzonatate [Tessalon] 200 mg PO TID PRN #30 capsule PRN Reason: Cough cephALEXin [Keflex] 500 mg PO DAILY 10 Days capsule Docusate [Colace] 100 mg PO BID PRN #30 capsule PRN Reason: Constipation Fluticasone Propionate Nasal [Flonase] 50 mcg NS DAILY #1 bottle Menthol [Cough Drops] 9.1 mg PO Q2H PRN #50 lozenge PRN Reason: Cough
[2018-12-14] MEDS ORDERED: Aminoglycoside Consult 1 EACH MC ONE (15:39)
--- NOTE | 2018-12-14 17:52 | Nephrology Progress Note ---
Date of Encounter: 12/14/18 Time of Encounter: 12:00 - Assessment and Plan (1) ESRD (end stage renal disease) on dialysis Status: Chronic Continue HD with UF as tolerated Continue renal diet Lytes stable (2) Diabetic foot ulcer Status: Acute Podiatry following. Wound care as needed Qualifiers: Diabetic foot ulcer location: other Diabetes mellitus type: type 2 Later ality: left Non-pressure ulcer stage: unspecified non-pressure ulcer stage Qualified Code(s): E11.621 - Type 2 diabetes mellitus with foot ulcer; L97.529 - Non-pressure chronic ulcer of other part of left foot with unspecified severity (3) HHNC (hyperglycemic hyperosmolar nonketotic coma) Status: Resolved Resolved Subjective Interval history: Pt seen and examined on HD doing well with no complaints. Eager to go home today Objective - Vital Signs Vital signs: Vital Signs Temp Pulse Resp BP Pulse Ox 12/14/18 13:04 98.3 F 67 18 112/55 12/14/18 12:48 97.2 F L 18 127/57 12/14/18 12:30 119/66 12/14/18 12:15 125/65 12/14/18 12:00 132/53 12/14/18 11:45 125/56 12/14/18 11:30 123/57 12/14/18 11:15 107/51 12/14/18 11:00 111/42 12/14/18 10:45 107/51 12/14/18 10:30 89/45 12/14/18 10:15 92/48 12/14/18 10:00 92/45 12/14/18 09:45 95/43 12/14/18 09:30 92/44 12/14/18 09:15 97.1 F L 18 106/49 12/14/18 08:25 98.0 F 64 18 122/69 94 12/14/18 07:34 98.0 F 64 18 122/69 94 12/14/18 04:53 14 100 12/14/18 04:16 98.1 F 61 20 128/97 95 12/14/18 00:27 98 F 61 18 132/70 97 12/13/18 20:54 67 12/13/18 19:48 98.3 F 67 18 124/69 94 Intake and Output 0112/14/18 12/14/18 07:59 15:59 23:59 Intake Total 960 / 960 Output Total 2850 / 2850 Balance -1890 / -1890 Intake: Oral 360 / 360 Intake, Rinseback and Flushes 600 / 600 Output: Urine 250 / 250 Total Dialysis (HD) Output 2600 / 2600 Other: Meal Breakfast Percent of Meal Consumed 100% Weight 102.6 kg Blood Glucose* 260 152 Hemodialysis Net Fluid Removed 2000 (mL) Patient Weight 12/14/18 23:59 Weight 102.6 kg - General Appearance General appearance: Present: well-developed, well-nourished EENT: Present: ATNC, mucous membranes moist Neck: Present: no JVD, supple Respiratory: Present: clear Cardiology: Present: no edema, normal S1, normal S2 Dialysis Vascular Access: Arteriovenous Fistula thrill: Yes bruit: Yes Gastrointestinal: Present: no tenderness, no guarding Integumentary: Present: warm and dry Neurologic: Present: no focal deficit Musculoskeletal: Present: no deformities Additional Comments: LLE with dressing Psychiatric: Present: mood/affect appropriate, cooperative - Lab 12/14/18 07:04 12/14/18 07:04 Most recent lab results Calcium 9.0 mg/dL (8.6-10.3) 12/14/18 07:04 Magnesium 1.9 mg/dL (1.6-2.6) 12/10/18 08:27 Consult Discharge Plan - Plan Instructions: Cephalexin (By mouth), Benzonatate (By mouth), Laxative, Stool Softeners (By mouth), Ipratropium/Albuterol (By breathing), Fluticasone (Into the nose), Cellulitis (DC), Diabetic Foot Care (DC), Diabetes Mellitus Type 2 in Adults (DC) Additional Instructions: 1. Wash left foot with warm water and mild soap daily. 2. [place] wound with betadine. 3. Cover with large bandaid. 4. Follow up with [facility] pod[facility]ry or [facility] in 1 week to evaluate wound healing. [facility]: [facility] [Primary Care Provider[facility] - 12/21/18 10:45 am Prescriptions: Ipratropium/Albuterol Neb [Duoneb] 3 ml IH [id number] PRN #160 inhsol PRN Reason: Shortness Of Breath/Wheezing Benzonatate [Tessalon] 200 mg PO TID PRN #30 capsule PRN Reason: Cough cephALEXin [Keflex] 500 mg PO DAILY 10 Days capsule Docusate [Colace] 100 mg PO BID PRN #30 capsule PRN Reason: Constipation Fluticasone Propionate Nasal [Flonase] 50 mcg NS DAILY #1 bottle Menthol [Cough Drops] 9.1 mg PO Q2H PRN #50 lozenge PRN Reason: Cough
== END 2018-12-14 15:40 | disposition home or self-care (01) | DRG 871 ==
LOC: EMEROOARM 01:32 → 2ANU 01:32 → SUATTDRO 05:15 → 2NNU 11:17
PROVIDERS: ADMIT Family Medicine; ATTEND Internal Medicine

== ENCOUNTER 2019-05-21 06:17 | Inpatient (IN) ==
--- NOTE | 2019-05-21 06:30 | Emergency Department Note ---
Disposition Clinical Impression: Chest pain Qualifiers: Chest pain type: unspecified Qualified Code(s): R07.9 - Chest pain, unspecified Disposition: Still a Patient Time of Disposition: 06:56 Chest Pain HPI - General Chief Complaint: ED Chest Pain Stated Complaint: CP Time Seen by Provider: 05/21/19 06:25 Source: patient, EMS Mode of arrival: EMS Limitations: no limitations Vital Signs Reviewed: Yes Nursing Notes Reviewed: Yes - History of Present Illness HPI Narrative: Patient is a 64-year-old male with past medical history including hypertension, end-stage renal disease on dialysis on Friday, Friday, Friday for over a year, still makes urine, coronary artery disease status post double bypass in 1998, triple bypass in 2002, diabetes mellitus, presenting with a chief complaint of chest pain. The patient states on April 26, he had chest pain and was diagnosed with a myocardial infarction. He had a triple balloon coronary catheterization done. He is on aspirin and Plavix at home. He states he was feeling well until he woke up at 2:30 AM suddenly from sleep with substernal chest pain radiating into his back and up the left side of his neck and down the left arm. He denies any new numbness or tingling, weakness of his extremities. He complains of some shortness of breath and nausea but no vomiting. He states symptoms have been constant. He received 10 minutes of dialysis this morning and they stopped secondary to the chest pain. He received 3 nitroglycerin without improvement in the pain. EMS was called and gave him an aspirin and transported him here for further evaluation. The patient states this chest pain is similar to the chest pain he had in April. He is concerned he is having another heart attack. Denies history of aneurysms or dissections. - Related Data Home Medications Medication Instructions Recorded Confirmed Calcium Acetate [Phos-LO] 1,334 mg PO TIDWM 10/04/16 05/12/19 Pantoprazole Sodium [Protonix] 40 mg PO DAILY 10/04/16 05/12/19 Ranitidine HCl [Heartburn Relief] 150 mg PO DAILY 10/04/16 05/12/19 Insulin ASPART [NovoLOG] 45 unit SQ BIDWM 04/25/17 05/12/19 Insulin Glargine,Hum.rec.anlog 90 unit SQ BID 01/29/18 05/12/19 [Lantus Solostar] Renal Vitamin [Renal Caps Softgel] 1 mg PO DAILY 01/29/18 05/12/19 OxyCODONE Immed Rel [Roxicodone 5 10 mg PO Q6HR PRN 04/27/18 05/12/19 MG] Atorvastatin Calcium [Lipitor] 40 mg PO HS 12/10/18 05/12/19 Buspirone HCl [Buspar] 5 mg PO TID 12/10/18 05/12/19 Cetirizine HCl [24Hour Allergy] 5 mg PO DAILY 12/10/18 05/12/19 Furosemide [Lasix] 60 mg PO BID 12/10/18 05/12/19 Gabapentin [Neurontin] 300 mg PO DAILY 12/10/18 05/12/19 Levothyroxine [Synthroid] 25 mcg PO QAM 12/10/18 05/12/19 Melatonin/Pyridoxine HCl (B6) 3 mg PO HS PRN 12/10/18 05/12/19 [Melatonin 3 mg Tablet] Paroxetine [Paxil] 30 mg PO QAM 12/10/18 05/12/19 Fluticasone Propionate Nasal 50 mcg NS DAILY PRN 04/26/19 05/12/19 [Flonase] Niacin (24 HR) [Niaspan] 500 mg PO DAILY 04/28/19 05/12/19 Previous Rx's Medication Instructions Recorded Clopidogrel [Plavix] 75 mg PO DAILY #30 tablet 04/28/17 Metoprolol [Lopressor] 12.5 mg PO BID tablet 04/29/18 Acetaminophen [Tylenol] 650 mg PO Q6HR PRN tablet 12/14/18 Aspirin Enteric Coated [Aspirin EC] 81 mg PO DAILY tablet. 12/14/18 Ipratropium/Albuterol Neb [Duoneb] 3 ml IH [id number] PRN #160 inhsol 12/14/18 Isosorbide MONOnitrate (24 HR) 60 mg PO DAILY 30 Days #30 04/30/19 [Imdur] tab.er.24h Allergies Allergy/AdvReac Type Severity Reaction Status Date / Time codeine Allergy Unknown Hives Verified 05/21/19 06:33 methadone [Methadone] Allergy Unknown Rash Verified 05/21/19 06:33 Penicillins [PCN] Allergy Unknown Rash Verified 05/21/19 06:33 promethazine [From Phenergan] Allergy Unknown Hives Verified 05/21/19 06:33 trazodone Allergy Unknown Itching Verified 05/21/19 06:33 All systems ED: reviewed and negative except as stated. Review of Systems: As Per HPI Constitutional: Denies: fever, chills Eyes: Denies: vision change Cardiovascular: Reports: chest pain. Denies: palpitations, edema, syncope Respiratory: Reports: dyspnea. Denies: cough Gastrointestinal: Reports: nausea. Denies: abdominal pain, vomiting, diarrhea Musculoskeletal: Reports: back pain Neurological: Denies: headache, weakness, numbness, paresthesias Chest Pain PMH - Past Medical History Medical history: Reports: coronary artery disease, diabetes, dialysis, GERD, hyperlipidemia, hypertension, myocardial infarction, renal disease, other Surgical history: Reports: angioplasty/stent, coronary bypass (CABG) (2v CABG in 1998, redo 3v CABG in 2002), orthopedic, other (Surgery on right knee x4, scope on left knee x1), other (Amputation of left great toe, re-attachment of right hand after accident at work) Psychiatric history: Reports: anxiety, depression - Social History Smoking Status: Never smoker Alcohol use: Reports: none Drug use: Reports: none Physical Exam - General Limitations: no limitations General appearance: alert, in no apparent distress - Head Head exam: atraumatic, normocephalic - Eye Eye exam: Present: normal appearance, EOMI - ENT ENT exam: normal exam, mucous membranes moist - Neck Neck exam: Present: normal inspection, trachea midline - Chest Chest inspection: Present: normal inspection, symmetric chest wall rise - Respiratory Respiratory exam: Present: normal lung sounds bilaterally. Absent: respiratory distress, wheezes, stridor - Cardiovascular Cardiovascular exam: Present: regular rate, normal rhythm, other (bilateral radial pulses equal) - Abdominal Exam Abdominal exam: Present: soft, Non-Tender. Absent: distention, guarding, rebound - Extremities Exam Extremities exam: Present: normal capillary refill. Absent: pedal edema, calf tenderness - Neurological Exam Neurological exam: Present: alert, oriented X3 - Psychiatric Psychiatric exam: Present: normal affect, normal mood - Skin Skin exam: Present: warm, dry. Absent: diaphoresis, pallor Chest Pain - [facility] Narrative Medical decision making narrative: Patient has significant coronary artery disease history. Recently he was diagnosed with a myocardial infarction and had a triple balloon coronary catheterization. He received trial of nitroglycerin that did not help the pain. He also received aspirin per EMS. Patient still has chest pain which he states is the same pain he experienced a month ago. We will give him fentanyl and reassessed. The fentanyl does not help, we will start nitro drip. We will obtain cardiac workup including CBC, BMP, troponin, coag panel, chest x-ray. We will repeat his EKG 30 minutes as well. Patient will be signed out to day shift team, Dr. Mason and Dr. Calhoun, pending lab work, CXR, repeat EKGs and response to treatment. Anticipate admission. - Medical Records Medical records reviewed: Yes I reviewed the patient's medical records. - EKG Data EKG attestation: Yes I reviewed and interpreted this EKG. EKG results narrative: EKG obtained at 6:30 shows sinus rhythm with rate 85, RI interval 187, QRS duration 118, QTC 481, left ventricular hypertrophy, [address] elevation in V2 with minimal ST elevation in V3, T-wave inversion in lead 1, T-wave inversion in aVL. No reciprocal changes. No STEMI criteria. Compared to old EKG in 04/30/2019. At that time patient also had ST elevation in V2 and mild in V1. He had T-wave inversions in V5 and V6 which has since resolved. He had ST depression in lead 1, T-wave inversion in lead 2, aVL and aVF at that time.
[2019-05-21] MEDS ORDERED: *HR* FentaNYL (PF) 100 MCG/2 ML VIAL IVP ONE (06:32)
[2019-05-21] MEDS ORDERED: Ondansetron 4 MG/2 ML VIAL IVP ONE (06:59)
--- NOTE | 2019-05-21 07:05 | Emergency Department Note ---
Disposition Clinical Impression: Chest pain Qualifiers: Chest pain type: unspecified Qualified Code(s): R07.9 - Chest pain, unspecified Disposition: Still a Patient Condition: Fair [facility]errals: [facility]Primary Care Provider[facility] - Forms: ED Satisfaction Letter Time of Disposition: 07:01 General Adult HPI - General Chief complaint: ED Chest Pain Stated complaint: CP Time Seen by Provider: 05/21/19 06:25 Source: patient, EMS Mode of arrival: EMS Limitations: no limitations Nursing Notes Reviewed: Yes Vital Signs Reviewed: Yes - History of Present Illness Pain Scale: 8 - Related Data Home Medications Medication Instructions Recorded Confirmed Calcium Acetate [Phos-LO] 1,334 mg PO TIDWM 10/04/16 05/21/19 Pantoprazole Sodium [Protonix] 40 mg PO DAILY 10/04/16 05/21/19 Ranitidine HCl [Heartburn Relief] 150 mg PO DAILY 10/04/16 05/21/19 Insulin ASPART [NovoLOG] 45 unit SQ BIDWM 04/25/17 05/21/19 Insulin Glargine,Hum.rec.anlog 90 unit SQ BID 01/29/18 05/21/19 [Lantus Solostar] Renal Vitamin [Renal Caps Softgel] 1 mg PO DAILY 01/29/18 05/21/19 OxyCODONE Immed Rel [Roxicodone 5 10 mg PO Q6HR PRN 04/27/18 05/21/19 MG] Atorvastatin Calcium [Lipitor] 40 mg PO HS 12/10/18 05/21/19 Buspirone HCl [Buspar] 5 mg PO TID 12/10/18 05/21/19 Cetirizine HCl [24Hour Allergy] 5 mg PO DAILY 12/10/18 05/21/19 Furosemide [Lasix] 60 mg PO BID 12/10/18 05/21/19 Gabapentin [Neurontin] 300 mg PO DAILY 12/10/18 05/21/19 Levothyroxine [Synthroid] 25 mcg PO QAM 12/10/18 05/21/19 Melatonin/Pyridoxine HCl (B6) 3 mg PO HS PRN 12/10/18 05/21/19 [Melatonin 3 mg Tablet] Paroxetine [Paxil] 30 mg PO QAM 12/10/18 05/21/19 Fluticasone Propionate Nasal 50 mcg NS DAILY PRN 04/26/19 05/21/19 [Flonase] Niacin (24 HR) [Niaspan] 500 mg PO DAILY 04/28/19 05/21/19 Previous Rx's Medication Instructions Recorded Clopidogrel [Plavix] 75 mg PO DAILY #30 tablet 04/28/17 Metoprolol [Lopressor] 12.5 mg PO BID tablet 04/29/18 Acetaminophen [Tylenol] 650 mg PO Q6HR PRN tablet 12/14/18 Aspirin Enteric Coated [Aspirin EC] 81 mg PO DAILY tablet. 12/14/18 Ipratropium/Albuterol Neb [Duoneb] 3 ml IH [id number] PRN #160 inhsol 12/14/18 Isosorbide MONOnitrate (24 HR) 60 mg PO DAILY 30 Days #30 04/30/19 [Imdur] tab.er.24h Allergies Allergy/AdvReac Type Severity Reaction Status Date / Time codeine Allergy Unknown Hives Verified 05/21/19 06:33 methadone [Methadone] Allergy Unknown Rash Verified 05/21/19 06:33 Penicillins [PCN] Allergy Unknown Rash Verified 05/21/19 06:33 promethazine [From Phenergan] Allergy Unknown Hives Verified 05/21/19 06:33 trazodone Allergy Unknown Itching Verified 05/21/19 06:33 Constitutional: Denies: fever, chills Eyes: Denies: vision change Cardiovascular: Reports: chest pain. Denies: palpitations, edema, syncope Respiratory: Reports: dyspnea. Denies: cough Gastrointestinal: Reports: nausea. Denies: abdominal pain, vomiting, diarrhea Musculoskeletal: Reports: back pain Neurological: Denies: headache, weakness, numbness, paresthesias Past Medical History - Past Medical History Medical history: Reports: coronary artery disease, diabetes, dialysis, GERD, hyperlipidemia, hypertension, myocardial infarction, renal disease, other Surgical history: Reports: angioplasty/stent, coronary bypass (CABG) (2v CABG in 1998, redo 3v CABG in 2002), orthopedic, other (Surgery on right knee x4, scope on left knee x1), other (Amputation of left great toe, re-attachment of right hand after accident at work) Psychiatric history: Reports: anxiety, depression - Social History Smoking Status: Never smoker Smokeless Tobacco Status: No Alcohol use: Reports: none Drug use: Reports: none Physical Exam - General Limitations: no limitations General appearance: alert, in no apparent distress Course Vital Signs Temperature 98 F 05/21/19 06:20 Pulse Rate 85 05/21/19 06:20 Respiratory Rate 18 05/21/19 06:20 Blood Pressure 150/75 05/21/19 06:20 O2 Sat by Pulse Oximetry 96 05/21/19 06:20 Temperature 98 F 05/21/19 06:20 Pulse Rate 85 05/21/19 06:20 Respiratory Rate 18 05/21/19 06:20 Blood Pressure 150/75 05/21/19 06:20 O2 Sat by Pulse Oximetry 96 05/21/19 06:20 Oxygen Delivery Oxygen Delivery Room Air Medical Decision Making - EKG Data EKG #1 EKG attestation: Yes I reviewed and interpreted this EKG. EKG results narrative: EKG shows a normal sinus rhythm with ventricular rate of 85. LVH. Anterior ST segment elevation however does not meet STEMI criteria and was also present on previous EKG dated 04/17/2019. Attestation Statement - Attestation Attestation: I, Maik Samuels MD, personally evaluated this patient and discussed their management with the resident physician. I reviewed the resident's note and agree with the documented findings, medical decision making, and plan of care. I reviewed the residents documentation and agree with the residents assessment and plan of care. I have personally had face to face time with the patient. I personally supervised and was present for the dawn/critical portions of the following procedures completed by the resident: EKG interpretation. 64-year-old male with extensive previous cardiac history presents to the emergency department with a complaint of substernal chest pain which awoke him from sleep at 2:30 this morning. He has end-stage renal disease and is on hemodialysis. The pain is been constant since onset. He went for his hemodialysis this morning and they gave him 3 nitroglycerin. He had no relief in the chest discomfort so they stopped his dialysis and referred him here for evaluation. Patient states the pain is in the substernal area and slightly in the left chest. The pain radiates through to the back as well as up into the left side of the neck and down the left arm. He has had some increased shortness of breath with the pain. Also some nausea. No diaphoresis. Patient states this feels similar to his prior chest pains. He has a history of CABG 2 in the past. He also just had a cardiac catheter last month with triple balloon angioplasty but no stents placed. His pain feels the same as last month. On examination patient is a well-developed well-nourished male in no acute distress. He is alert and oriented 3. There is no cyanosis or diaphoresis. Chest is nontender to palpation. Breath sounds are decreased bilaterally with some coarse scattered expiratory wheezes. Also some mild bibasilar rales. Heart regular rate and rhythm. Abdomen soft and nontender with normal bowel sounds. No pedal edema. EKG shows a normal sinus rhythm with ventricular rate of 85. LVH. Anterior ST segment elevation however does not meet STEMI criteria and was also present on previous EKG dated 04/17/2019. Patient had 3 nitroglycerin at dialysis just before arrival and was also given aspirin by EMS prior to arrival here. No improvement in his chest discomfort. He was given Zofran and fentanyl here for the pain. At morning shift change patient is signed out to the oncoming dayshift team, Dr. Calhoun and Dr. Mason.
[2019-05-21 07:08] LABS: Basophils % 0.2 %
[2019-05-21 07:10] LABS: Hematocrit 27.3 % (37.5-50.1); Hemoglobin 9.5 g/dL (12.9-16.9); Immature Granulocytes % 0.5 % (0-4); Immature Platelets 7.1 % (1.1-6.1); Lymphocytes % 23.2 %; Mean Corpuscular HGB Conc 34.8 g/dL (31.6-35.5); Mean Corpuscular Hemoglobin 31.9 pg (28.0-33.3); Mean Corpuscular Volume 91.6 fL (83.0-100.0); Mean Platelet Volume 11.5 fL (9.4-12.4); Monocytes # 0.3 K/mcL (0.0-1.3); Monocytes % 7.9 %; Neutrophils # 2.8 K/mcL (1.6-8.9); Platelet Count 86 K/mcL (140-400); Red Blood Count 2.98 M/mcL (4.19-5.50); Red Cell Distribution Width 13.9 % (11.5-14.5); Segmented Neutrophils % 67.2 %; White Blood Count 4.1 K/mcL (4.3-11.1)
[2019-05-21 07:15] LABS: Prothrombin Time 11.8 Seconds (9.4-12.1)
[2019-05-21 07:18] LABS: Activated Partial Thrombo Time 56.1 Seconds (26.0-36.0)
[2019-05-21 07:31] LABS: Calcium 8.9 mg/dL (8.6-10.3); Potassium 4.5 mEq/L (3.5-5.1); Troponin I 0.07 ng/mL (< 0.04)
--- NOTE | 2019-05-21 07:37 | Emergency Department Note ---
Disposition Clinical Impression: Chest pain Qualifiers: Chest pain type: unspecified Qualified Code(s): R07.9 - Chest pain, unspecified Disposition: Admitted As Inpatient Condition: Fair Time of Disposition: 08:22 General Adult HPI - General Chief complaint: ED Chest Pain Stated complaint: CP Time Seen by Provider: 05/21/19 06:25 Source: patient, EMS Mode of arrival: EMS Limitations: no limitations Nursing Notes Reviewed: Yes Vital Signs Reviewed: Yes - History of Present Illness HPI Narrative: Patient signed out to me by the night staff. Please see their note for further. Pain Scale: 8 - Related Data Home Medications Medication Instructions Recorded Confirmed Calcium Acetate [Phos-LO] 1,334 mg PO TIDWM 10/04/16 05/21/19 Pantoprazole Sodium [Protonix] 40 mg PO DAILY 10/04/16 05/21/19 Ranitidine HCl [Heartburn Relief] 150 mg PO DAILY 10/04/16 05/21/19 Insulin ASPART [NovoLOG] 45 unit SQ BIDWM 04/25/17 05/21/19 Insulin Glargine,Hum.rec.anlog 90 unit SQ BID 01/29/18 05/21/19 [Lantus Solostar] Renal Vitamin [Renal Caps Softgel] 1 mg PO DAILY 01/29/18 05/21/19 OxyCODONE Immed Rel [Roxicodone 5 10 mg PO Q6HR PRN 04/27/18 05/21/19 MG] Atorvastatin Calcium [Lipitor] 40 mg PO HS 12/10/18 05/21/19 Buspirone HCl [Buspar] 5 mg PO TID 12/10/18 05/21/19 Cetirizine HCl [24Hour Allergy] 5 mg PO DAILY 12/10/18 05/21/19 Furosemide [Lasix] 60 mg PO BID 12/10/18 05/21/19 Gabapentin [Neurontin] 300 mg PO DAILY 12/10/18 05/21/19 Levothyroxine [Synthroid] 25 mcg PO QAM 12/10/18 05/21/19 Melatonin/Pyridoxine HCl (B6) 3 mg PO HS PRN 12/10/18 05/21/19 [Melatonin 3 mg Tablet] Paroxetine [Paxil] 30 mg PO QAM 12/10/18 05/21/19 Fluticasone Propionate Nasal 50 mcg NS DAILY PRN 04/26/19 05/21/19 [Flonase] Niacin (24 HR) [Niaspan] 500 mg PO DAILY 04/28/19 05/21/19 Previous Rx's Medication Instructions Recorded Clopidogrel [Plavix] 75 mg PO DAILY #30 tablet 04/28/17 Metoprolol [Lopressor] 12.5 mg PO BID tablet 04/29/18 Acetaminophen [Tylenol] 650 mg PO Q6HR PRN tablet 12/14/18 Aspirin Enteric Coated [Aspirin EC] 81 mg PO DAILY tablet. 12/14/18 Ipratropium/Albuterol Neb [Duoneb] 3 ml IH [id number] PRN #160 inhsol 12/14/18 Isosorbide MONOnitrate (24 HR) 60 mg PO DAILY 30 Days #30 04/30/19 [Imdur] tab.er.24h Allergies Allergy/AdvReac Type Severity Reaction Status Date / Time codeine Allergy Unknown Hives Verified 05/21/19 06:33 methadone [Methadone] Allergy Unknown Rash Verified 05/21/19 06:33 Penicillins [PCN] Allergy Unknown Rash Verified 05/21/19 06:33 promethazine [From Phenergan] Allergy Unknown Hives Verified 05/21/19 06:33 trazodone Allergy Unknown Itching Verified 05/21/19 06:33 All systems ED: reviewed and negative except as stated. Constitutional: Denies: fever, chills Eyes: Denies: vision change Cardiovascular: Reports: chest pain. Denies: palpitations, edema, syncope Respiratory: Reports: dyspnea. Denies: cough Gastrointestinal: Reports: nausea. Denies: abdominal pain, vomiting, diarrhea Musculoskeletal: Reports: back pain Neurological: Denies: headache, weakness, numbness, paresthesias Past Medical History - Past Medical History Attestation: Yes The following information was validated with the patient. Source: patient Medical history: Reports: coronary artery disease, diabetes, dialysis, GERD, hyperlipidemia, hypertension, myocardial infarction, renal disease, other Surgical history: Reports: angioplasty/stent, coronary bypass (CABG) (2v CABG in 1998, redo 3v CABG in 2002), orthopedic, other (Surgery on right knee x4, scope on left knee x1), other (Amputation of left great toe, re-attachment of right hand after accident at work) Psychiatric history: Reports: anxiety, depression - Social History Smoking Status: Never smoker Smokeless Tobacco Status: No Alcohol use: Reports: none Drug use: Reports: none Physical Exam - General Limitations: no limitations General appearance: alert, in no apparent distress - Head Head exam: atraumatic, normocephalic, normal inspection - Eye Eye exam: Present: normal appearance, PERRL, EOMI - ENT ENT exam: normal exam, normal oropharynx, mucous membranes moist - Neck Neck exam: Present: normal inspection, full ROM, trachea midline - Respiratory Respiratory exam: Absent: respiratory distress, accessory muscle use - Neurological Exam Neurological exam: Present: alert, oriented X3 - Psychiatric Psychiatric exam: Present: normal affect, normal mood - Skin Skin exam: Present: warm, dry, intact, normal color Course - Reevaluation(s) Reevaluation #1: Patient with an elevated troponin. Has had a history of CABG twice with the most recent balloon angioplasty a month ago. Patient has end-stage renal disease. Does do dialysis. Started with the pain this morning is been constant. He was not responsive to nitroglycerin at ounces. Patient with continued pain. We will nitroglycerin trial him again at this time and admitted to the hospital for further coronary artery workup. Time: 07:45 Reevaluation #2: Patient with continued chest pain despite nitroglycerin and pain medication. Also with an elevated troponin. He has had normal troponins recently. Has some mild ST elevation in leads V2 and appears to be maybe mildly more pronounced than previous but was on the previous EKGs. We will discuss this case with interventional cardiology and will admit to the hospital. Time: 08:06 - Consultations Consultation #1: I spoke with Dr. Ruiz. He states that he is agreeable with our plan so far and place the patient on heparin drip. He requests we admit to the hospitalist and in one hour which will be around 9:30 in the morning if the patient is still symptomatic with his chest pain that he will likely need a cardiac catheterization. We should contact them back around 9:30 to discuss the plan if the patient is still symptomatic. Time: 08:16 Consultation #2: Dr STOKES accepted Pt in stable condition with continued chest pain. He was made aware of the plan to discuss this with Dr. Ruiz at the patient's chest pain was ongoing for over an hour. Time: 08:25 Vital Signs Temperature 98 F 05/21/19 06:20 Pulse Rate 85 05/21/19 06:20 Respiratory Rate 18 05/21/19 06:20 Blood Pressure 150/75 05/21/19 06:20 O2 Sat by Pulse Oximetry 96 05/21/19 06:20 Temperature 98 F 05/21/19 06:20 Pulse Rate 101 05/21/19 08:23 Respiratory Rate 17 05/21/19 08:23 Blood Pressure 153/87 05/21/19 08:23 O2 Sat by Pulse Oximetry 98 05/21/19 08:23 Oxygen Delivery Oxygen Delivery Room Air Medical Decision Making - Medical Records Medical records reviewed: Yes I reviewed the patient's medical records. - Lab Data Lab results reviewed: Yes I reviewed the patient's lab results. Result diagrams: 05/22/19 01:50 05/23/19 01:23 Lab Results 05/21/19 05/21/19 05/21/19 Range/Units 06:55 06:55 06:55 WBC 4.1 L (4.3-11.1) K/mcL RBC 2.98 L (4.19-5.50) M/mcL Hgb 9.5 L (12.9-16.9) g/dL Hct 27.3 L (37.5-50.1) % MCV 91.6 (83.0-100.0) fL MCH 31.9 (28.0-33.3) pg MCHC 34.8 (31.6-35.5) g/dL RDW 13.9 (11.5-14.5) % Plt Count 86 L (140-400) K/mcL MPV 11.5 (9.4-12.4) fL Immature Gran % 0.5 (0-4) % Seg Neutrophils % 67.2 % Lymphocytes % 23.2 % Monocytes % 7.9 % Eosinophils % 1.0 % Basophils % 0.2 % Neutrophils # 2.8 (1.6-8.9) K/mcL Lymphocytes # 1.0 (0.6-4.6) K/mcL Monocytes # 0.3 (0.0-1.3) K/mcL Eosinophils # 0.0 (0.0-0.6) K/mcL Basophils # 0.0 (0.0-0.2) K/mcL Immature Plt Fraction 7.1 H (1.1-6.1) % PT 11.8 (9.4-12.1) Seconds INR 1.0 APTT 56.1 H (26.0-36.0) Seconds Sodium 131 L (136-145) mEq/L Potassium 4.5 (3.5-5.1) mEq/L Chloride 96 L (98-107) mEq/L Carbon Dioxide 25 (23-29) mEq/L BUN 34 H (8-23) mg/dL Creatinine 4.54 H (0.70-1.30) mg/dL Est GFR ( Amer) 16 L (> 60) Est GFR (Non-Af Amer) 13 L (> 60) BUN/Creatinine Ratio 7 (6-26) Glucose 352 H (70-105) mg/dL Calculated Osmolality 294 (280-300) Calcium 8.9 (8.6-10.3) mg/dL Troponin I 0.07 H* (< 0.04) ng/mL - Radiology Data Radiology results reviewed: Yes I reviewed the patient's radiology results. Chest X-Ray 05/21/19 06:25 IMPRESSION: 1. Cardiomegaly with increased pulmonary edema. D/ / Matthew Aguayo MD / Matthew Aguayo MD Interpreting Provider: Matthew Aguayo MD - EKG Data EKG #1 EKG attestation: Yes I reviewed and interpreted this EKG. EKG results narrative: Repeat EKG timed 732 is again a normal sinus rhythm. There is some mild elevation in lead V2 and V3 of ST segment. These were seen on previous EKG done later this morning as well as previous EKG from May 21. No reciprocal changes noted. Attestation Statement - Attestation Attestation: I have seen this patient with the resident physician, I have personally evaluated this patient. I had reviewed the chart and document dictation by the resident physician and aM in agreement with the information documented by the resident physician. Please see documentation by the resident physician for complete chart including past medical history, family medical history, review of systems, current history and physical and laboratory and imaging studies. I was present for all procedures, provided direct supervision for all procedures, was present for the entirety of all procedures and provided direct guidance during the procedures. Please see documentation by the resident physician for any procedures performed. I have reviewed all interpretations of EKGs, and reviewed all EKGs performed on patient's as well. I have also reviewed reports of imaging as provided by radiology.
[2019-05-21] MEDS ORDERED: *HR* Heparin 5,000 UNIT/ML VIAL IVP ONE (08:14)
[2019-05-21] MEDS ORDERED: *HR* Heparin 5,000 UNIT/ML VIAL IVP PRN ×2 (08:14)
[2019-05-21] MEDS ORDERED: Nitroglycerin 25 MG/250 ML INFUS..BTL IVC SCH (08:15)
[2019-05-21] MEDS ORDERED: Heparin 25,000 UNIT/250 ML D5W 25,000 UNIT/250 ML IV.SOLN IVC SCH (08:15)
[2019-05-21] MEDS ORDERED: Naloxone 0.4 MG/ML INJ IVP PRN (08:24)
[2019-05-21] MEDS ORDERED: Ondansetron 4 MG/2 ML VIAL IVP PRN (08:24)
[2019-05-21] MEDS ORDERED: Acetaminophen 325 MG TABLET PO PRN (08:30)
[2019-05-21] MEDS ORDERED: Ipratropium/Albuterol Neb 3 ML IH PRN (08:30)
[2019-05-21] MEDS ORDERED: *HR* OxyCODONE Immed Rel 5 MG TABLET PO PRN ×2 (08:30→09:58)
[2019-05-21] MEDS ORDERED: Fluticasone Propionate Nasal 50 MCG/SPRAY BOTTLE NS PRN (08:30)
[2019-05-21] MEDS ORDERED: *HR* Dextrose 50 % in Water (Syg) 50 ML SYRINGE IVP PRN (08:32)
[2019-05-21] MEDS ORDERED: D5% in Water 1,000 ML IVC PRN (08:32)
[2019-05-21] MEDS ORDERED: Dextrose Gel 15 GM/37.5 ML TUBE PO PRN ×2 (08:32)
[2019-05-21 08:34] LABS: Hemoglobin 9.3 g/dL (12.9-16.9); Mean Corpuscular Volume 91.8 fL (83.0-100.0); Mean Platelet Volume 11.4 fL (9.4-12.4)
[2019-05-21 08:36] LABS: Immature Platelets 6.6 % (1.1-6.1); Mean Corpuscular HGB Conc 34.4 g/dL (31.6-35.5); Mean Corpuscular Hemoglobin 31.6 pg (28.0-33.3); Red Blood Count 2.94 M/mcL (4.19-5.50); Red Cell Distribution Width 13.7 % (11.5-14.5)
[2019-05-21 08:43] LABS: Prothrombin Time 11.6 Seconds (9.4-12.1)
[2019-05-21 08:44] LABS: Heparin anti-factor XA UFH 0.03 IU/mL (0.30-0.70)
[2019-05-21] MEDS ORDERED: NON-FORMULARY MEDICATION 1 EACH EACH (Ranitidine Hcl [Heartburn Relief] 150 MG) PO SCH (09:00)
[2019-05-21] MEDS ORDERED: Aspirin Enteric Coated 81 MG Tablet PO SCH (09:00)
[2019-05-21] MEDS ORDERED: Isosorbide MONOnitrate (24 HR) 60 MG TAB.ER.24H PO SCH (09:00)
--- NOTE | 2019-05-21 09:00 | Internal Med History&Physical ---
Date of Encounter: 05/21/19 Time of Encounter: 08:25 Internal Medicine - H&P: HPI Chief complaint: chest pain Admitted From: Home History of present illness: Mr. Velarde is a 64 year old male with history of CAD status post CABG and PCI (most recent PTCA x 2 in 04/2019), ESRD on hemodialysis Friday, DM, CHF, presented to the ED with sudden onset of chest pain. States that it was similar to the episode in April 2019 which eventually led to abnormal stress test followed by [facility] with PTCA in distal left main and radial artery graft to 2nd diagonal. Started at 2:30 AM suddenly, woke him up from sleep, substernal, stabbing and pressure-like, radiates to neck, and no significant relief with nitro so far. No obvious aggravating factor. It is however associated with nausea and shortness of breath. Denies any GI/ symptoms. No joint pain or rash. In the ED, he was afebrile and hemodynamically stable. Saturating well on room air. Labwork showed hemoglobin and platelet at his baseline, normal PT/INR, but he did have elevated troponin of 0.07. EKG showed normal sinus rhythm with resolution of ST depression/T-wave inversion in V5-6, I, II, and aVF. Chest x-ray showed findings compatible with mild pulmonary edema. Patient was given aspirin en route to the ED and was subsequently started on nitroglycerin and heparin drip after discussing with cardiology. Patient will be admitted for further management. Past Med Surg Social Fam HX - Past Medical History Medical history: coronary artery disease, diabetes, dialysis, GERD, hyperlipidemia, hypertension, myocardial infarction, renal disease, other Additional medical history: C1,2 L 5,6 arthritis , "nerve damage " Psychiatric history: anxiety, depression - Past Surgical History Surgical History: angioplasty/stent, coronary bypass (CABG) (2v CABG in 1998, redo 3v CABG in 2002), orthopedic, other (Surgery on right knee x4, scope on left knee x1), other (Amputation of left great toe, re-attachment of right hand after accident at work) Additional surgical history: cardiac stents 04/2018 , cabg 99 and 03 , Right hand re attached previous work accident, toe left great toe, left 3rd finger unable to extend finger for a couple years . multiple knee scopes ,arthritis , left antecubital AV fistula creation at [facility]. - Social History Smoking Status: Never smoker Smokeless Tobacco Status: No Alcohol use: none Drug use: none - Family History Father Adopted: No Family Member Ethnicity: Non- Living Status: Still Living Hx Family Cardiac Disorders: Yes (Coronary artery disease?) Hx Family Respiratory Disorders: No Hx Family Cancer: Yes Hx Family GI Disorders: No Hx Family Endocrine Disorder: Yes (brothers, sister) Hx Family Neuromuscular Disorders: No Hx Family Neurologic Disorders: No Hx Family HEENT Disorders: No Hx Family Autoimmune Disorders: No Brother Family Member Ethnicity: Non- Living Status: Still Living Hx Family Cardiac Disorders: Yes (ME) Sister Family Member Ethnicity: Non- Living Status: Still Living Hx Family Endocrine Disorder: Yes (DM) Mother Adopted: No Family Member Ethnicity: Non- Living Status: Still Living Hx Family Cardiac Disorders: Yes (ME, Pacemaker) Hx Family Respiratory Disorders: Yes (COPD) Hx Family Cancer: Yes Hx Family GI Disorders: No Hx Family Endocrine Disorder: Yes (DM) Hx Family Neuromuscular Disorders: No Hx Family Neurologic Disorders: No Hx Family HEENT Disorders: No Hx Family Autoimmune Disorders: No Internal Medicine - H&P: Meds Calcium Acetate [Phos-LO] 1,334 mg PO TIDWM 10/04/16 [History] Pantoprazole Sodium [Protonix] 40 mg PO DAILY 10/04/16 [History] Ranitidine HCl [Heartburn Relief] 150 mg PO DAILY 10/04/16 [History] Insulin ASPART [NovoLOG] 45 unit SQ BIDWM 04/25/17 [History] Clopidogrel [Plavix] 75 mg PO DAILY #30 tablet 04/28/17 [Rx] Insulin Glargine,Hum.rec.anlog [Lantus Solostar] 90 unit SQ BID 01/29/18 [History] Renal Vitamin [Renal Caps Softgel] 1 mg PO DAILY 01/29/18 [History] OxyCODONE Immed Rel [Roxicodone 5 MG] 10 mg PO Q6HR PRN 04/27/18 [History] Metoprolol [Lopressor] 12.5 mg PO BID tablet 04/29/18 [Rx] Atorvastatin Calcium [Lipitor] 40 mg PO HS 12/10/18 [History] Buspirone HCl [Buspar] 5 mg PO TID 12/10/18 [History] Cetirizine HCl [24Hour Allergy] 5 mg PO DAILY 12/10/18 [History] Furosemide [Lasix] 60 mg PO BID 12/10/18 [History] Gabapentin [Neurontin] 300 mg PO DAILY 12/10/18 [History] Levothyroxine [Synthroid] 25 mcg PO QAM 12/10/18 [History] Melatonin/Pyridoxine HCl (B6) [Melatonin 3 mg Tablet] 3 mg PO HS PRN 12/10/18 [History] Paroxetine [Paxil] 30 mg PO QAM 12/10/18 [History] Acetaminophen [Tylenol] 650 mg PO Q6HR PRN tablet 12/14/18 [Rx] Aspirin Enteric Coated [Aspirin EC] 81 mg PO DAILY tablet. 12/14/18 [Rx] Ipratropium/Albuterol Neb [Duoneb] 3 ml IH [id number] PRN #160 inhsol 12/14/18 [Rx] Fluticasone Propionate Nasal [Flonase] 50 mcg NS DAILY PRN 04/26/19 [History] Niacin (24 HR) [Niaspan] 500 mg PO DAILY 04/28/19 [History] Isosorbide MONOnitrate (24 HR) [Imdur] 60 mg PO DAILY 30 Days #30 tab.er.24h 04/30/19 [Rx] Allergy/AdvReac Type Severity Reaction Status Date / Time codeine Allergy Unknown Hives Verified 05/21/19 06:33 methadone [Methadone] Allergy Unknown Rash Verified 05/21/19 06:33 Penicillins [PCN] Allergy Unknown Rash Verified 05/21/19 06:33 promethazine [From Phenergan] Allergy Unknown Hives Verified 05/21/19 06:33 trazodone Allergy Unknown Itching Verified 05/21/19 06:33 All Systems PM: A 10-system review of systems was performed and is negative for pertinent findin gs except as documented above in the HPI. - Constitutional Vitals: Temp Pulse Resp BP Pulse Ox 98 F 101 17 153/87 98 05/21/19 06:20 05/21/19 08:23 05/21/19 08:23 05/21/19 08:23 05/21/19 08:23 Exam: General: Alert and oriented, mild distress due to discomfort HEENT:EOMI, pupils equal, round and reactive. Cardiovascular:Normal S1 & S2, No JVD. Pulse regular. No chest wall tenderness Lungs: Minimal bilateral crackles, no wheezes Abdomen:Soft, non-tender, no rigidity. Extremities:No deformity or swelling Neurological:Normal cognition and motor skills. Non-focal Skin:Normal color, no rash, no lesions. Pulses:Femoral and radial pulses normal +2. Rest of the physical exam is non contributory Internal Med - H&P Results - Labs CBC & Chem 7: 05/21/19 08:26 05/21/19 06:55 Labs: Short CBC 05/21/19 05/21/19 Range/Units 06:55 08:26 WBC 4.1 L 4.0 L (4.3-11.1) K/mcL Hgb 9.5 L 9.3 L (12.9-16.9) g/dL Hct 27.3 L 27.0 L (37.5-50.1) % Plt Count 86 L 80 L (140-400) K/mcL Neutrophils # 2.8 (1.6-8.9) K/mcL BMP 05/21/19 06:55 Sodium 131 L Potassium 4.5 Chloride 96 L Carbon Dioxide 25 BUN 34 H Creatinine 4.54 H Glucose 352 H Calcium 8.9 Cardiac Enzymes 05/21/19 Range/Units 06:55 Troponin I 0.07 H* (< 0.04) ng/mL - Impressions ITS Impressions Chest X-Ray 05/21/19 06:25 IMPRESSION: 1. Cardiomegaly with increased pulmonary edema. D/ / Matthew Aguayo MD / Matthew Aguayo MD Interpreting Provider: Matthew Aguayo MD - Assessment and Plan (1) NSTEMI (non-ST elevated myocardial infarction) Current Visit: Yes Status: Acute Assessment and plan: Sudden onset of chest pain with significant cardiac history and elevated troponin. No new EKG changes other than improvement in previously noted ST dep/T wave inversion in V5-6, I, II, AVF states compliance to dual antiplatelets loaded with ASA by the EMS, continue 81mg daily Nitroglycerin and heparin drip started in the ED, continue Cardiology consulted in the ED; if chest pain persists, will contact cardiology for LHC today trend troponin, telemetry echocardiogram resume home meds for CAD (2) Acute exacerbation of congestive heart failure Current Visit: Yes Status: Acute Assessment and plan: Chest x-ray demonstrated increased pulmonary edema (pt is due to for HD today anyways) but is saturating well on room air ?secondary to NSTEMI, mx as per above resume janis, nephrology consult for inpatient HD echocardiogram Qualifiers: Qualified Code(s): I50.33 - Acute on chronic diastolic (congestive) heart failure (3) ESRD (end stage renal disease) on dialysis Current Visit: No Status: Chronic Assessment and plan: HD per nephro (4) Diabetes mellitus Current Visit: No Status: Chronic Assessment and plan: will keep sliding scale coverage every 6H while nothing by mouth Qualifiers: Diabetes mellitus type: type 2 Diabetes mellitus terminal supervisor insulin use: with terminal supervisor use Diabetes mellitus complication status: with kidney complications Diabetes mellitus complication detail: with chronic kidney disease Chronic kidney disease stage: on chronic dialysis Qualified Code(s): E11.22 - Type 2 diabetes mellitus with diabetic chronic kidney disease; N18.6 - End stage renal disease; Z79.4 - penitentiary (current) use of insulin; Z99.2 - Dependence on renal dialysis (5) Anemia Current Visit: No Status: Chronic Assessment and plan: chronic, at baseline Qualifiers: Anemia type: due to chronic kidney disease Chronic kidney disease stage: on chronic dialysis Qualified Code(s): N18.6 - End stage renal disease; D63.1 - Anemia in chronic kidney disease; Z99.2 - Dependence on renal dialysis (6) DVT prophylaxis Current Visit: Yes Status: Acute Assessment and plan: Heparin drip - Time Spent With Patient Total time spent is greater than 50% in coordination of care (as documented) at patient's floor/unit and/or counseling patient: Greater than 35 minutes
[2019-05-21] MEDS: Levothyroxine 25 MCG TABLET PO SCH (09:46)
[2019-05-21] MEDS: Loratadine 10 MG TABLET PO SCH (09:46)
[2019-05-21] MEDS: Gabapentin 300 MG CAPSULE PO SCH (09:46)
[2019-05-21] MEDS: Furosemide 20 MG TABLET PO SCH ×2 (09:46→18:11)
[2019-05-21] MEDS ORDERED: Morphine Sulfate 2 MG/ML SYRINGE IVP ONE (10:44)
[2019-05-21] MEDS ORDERED: ISOVUE-370 200 ML INFUS..BTL ONE ×2 (11:35→13:40)
[2019-05-21] MEDS ORDERED: *HR* Heparin 10,000 UNIT/10 ML VIAL ONE ×2 (11:35→14:59)
[2019-05-21] MEDS ORDERED: Heparin 1,000 UNITS/500 mL 500 ML ONE ×2 (11:35→13:40)
[2019-05-21] MEDS ORDERED: 0.9 % Sodium Chloride 1,000 ML ONE (11:35)
[2019-05-21] MEDS ORDERED: Nitroglycerin 1,000 MCG/10 ML VIAL IV ONE ×2 (11:36→13:40)
[2019-05-21] MEDS ORDERED: *HR* FentaNYL (PF) 100 MCG/2 ML VIAL ONE ×2 (11:53→13:44)
[2019-05-21] MEDS ORDERED: *HR* Midazolam HCl 2 MG/2 ML VIAL ONE ×2 (11:53→13:44)
[2019-05-21] MEDS ORDERED: Insulin LISPRO 300 UNITS/3 ML VIAL SQ SCH ×3 (12:00→21:00)
--- NOTE | 2019-05-21 12:09 | Cardiology Consult Note ---
Date of Encounter: 05/21/19 Time of Encounter: 11:30 Assessment and Plan (1) NSTEMI (non-ST elevated myocardial infarction) Current Visit: Yes Status: Acute Per cardiology: -Troponin 0.07. -ECG with non specific T wave abnormalities noted, improved appearance from 04/2019 ECG. -Admits to current chest pain 06/26. -Currently on asa, plavix, statin, bb, heparin and nitro drips. -LHC 05/2018 The LMCA has a patent stent. LAD has 100% ostial proximal disease, 40% stenosis in the Mid Circumflex. Distal LCx 60% stenosis. RCA has 100% proximal stenosis. An Intervetnion was performed with final stenosis. 60% distal to the stent, unable to pass balloon past the recently implanted stent. The radial arterial graft to the 2nd Diagonal has a 99% stenosis in the proximal anastomosis at 350 degree angulation sp successful 2.25 x 8 Synergy ABBI. Marcial to Lad is known to be patent from recent angiography. -LHC 04/2019 with balloon angiplasty to ISR of LM stent, and balloon angiolpasty to radial artery graft. -TTE 03/2019 with LVEF 50%, no wall motion abnormalities noted. -Can further titrate nitro for chest pain. -Discussed and reviewed with , plan for LHC today. Risks versus benefits of LHC explained to patient who states understanding and agreeable to proceed. -Will repeat limited TTE. -Further recs pending LHC and TTE. (2) Diastolic CHF, acute on chronic Current Visit: No Status: Acute Per cardiology: -Chest x-ray with cardiomegaly and increased pulmonary edema. -Reports chronic orthopnea. -ESRD on HD, however states does make some urine. On po lasix. -Did not complete dialysis today due to chest pain. -Strict i/os, fluid restriction, daily weights. -Appreciate nephrology recs regarding volume management. Discussion w patient/family: The assessment and plan as outlined above was discussed with the patient who expressed understanding and agreement. All questions were answered. Thank you for involving us in the care of your patient. Please call with any questions. Discussed and reviewed with . History of Present Illness Consult date: 05/21/19 Requesting physician: Júnior Guzman Consult reason: chest pain, elevated troponin Chief complaint: chest pain History of present illness: Mr. Velarde is a 64 year old male with a relevant past medical history of HI, CAD s/p CABG 1998 and re-do CABG 2002, PCI, HTN, DM, ESRD on HD, who presented to [facility] with complaints of chest pain. Of note, recent L[facility] 04/29/19 with balloon angioplasty to previous left main stent and balloon angioplasty to previous stent in radial artery graft. Patient states he woke up about 0200 this am with chest pain and shortness of breath. Patient states chest pain similar to previous angina. Patient states he went to dialysis, however underwent 10 minute dialysis session and then was recommended for ER evaluation for chest pain. Patient admits to current chest pain 06/26. Reports current shortness of breath. Past Med Surg Social Fam HX - Past Medical History Attestation: Yes The following information was validated with the patient. Source: patient, old records reviewed Medical history: coronary artery disease, diabetes, dialysis, GERD, hyperl ipidemia, hypertension, myocardial infarction, renal disease, other Additional medical history: C1,2 L 5,6 arthritis , "nerve damage " Psychiatric history: anxiety, depression - Past Surgical History Surgical History: angioplasty/stent, coronary bypass (CABG) (2v CABG in 1998, redo 3v CABG in 2002), orthopedic, other (Surgery on right knee x4, scope on left knee x1), other (Amputation of left great toe, re-attachment of right hand after accident at work) Additional surgical history: cardiac stents 04/2018 , cabg 99 and 03 , Right hand re attached previous work accident, toe left great toe, left 3rd finger unable to extend finger for a couple years . multiple knee scopes ,arthritis , left antecubital AV fistula creation at [facility]. - Social History Smoking Status: Never smoker Smokeless Tobacco Status: No Alcohol use: none Drug use: none - Family History Father Adopted: No Family Member Ethnicity: Non- Living Status: Still Living Hx Family Cardiac Disorders: Yes (Coronary artery disease?) Hx Family Respiratory Disorders: No Hx Family Cancer: Yes Hx Family GI Disorders: No Hx Family Endocrine Disorder: Yes (brothers, sister) Hx Family Neuromuscular Disorders: No Hx Family Neurologic Disorders: No Hx Family HEENT Disorders: No Hx Family Autoimmune Disorders: No Brother Family Member Ethnicity: Non- Living Status: Still Living Hx Family Cardiac Disorders: Yes (HI) Sister Family Member Ethnicity: Non- Living Status: Still Living Hx Family Endocrine Disorder: Yes (DM) Mother Adopted: No Family Member Ethnicity: Non- Living Status: Still Living Hx Family Cardiac Disorders: Yes (HI, Pacemaker) Hx Family Respiratory Disorders: Yes (COPD) Hx Family Cancer: Yes Hx Family GI Disorders: No Hx Family Endocrine Disorder: Yes (DM) Hx Family Neuromuscular Disorders: No Hx Family Neurologic Disorders: No Hx Family HEENT Disorders: No Hx Family Autoimmune Disorders: No Medications and Allergies Calcium Acetate [Phos-LO] 1,334 mg PO TIDWM 10/04/16 [History] Pantoprazole Sodium [Protonix] 40 mg PO DAILY 10/04/16 [History] Ranitidine HCl [Heartburn Relief] 150 mg PO DAILY 10/04/16 [History] Insulin ASPART [NovoLOG] 45 unit SQ BIDWM 04/25/17 [History] Clopidogrel [Plavix] 75 mg PO DAILY #30 tablet 04/28/17 [Rx] Insulin Glargine,Hum.rec.anlog [Lantus Solostar] 90 unit SQ BID 01/29/18 [History] Renal Vitamin [Renal Caps Softgel] 1 mg PO DAILY 01/29/18 [History] OxyCODONE Immed Rel [Roxicodone 5 MG] 10 mg PO Q6HR PRN 04/27/18 [History] Metoprolol [Lopressor] 12.5 mg PO BID tablet 04/29/18 [Rx] Atorvastatin Calcium [Lipitor] 40 mg PO HS 12/10/18 [History] Buspirone HCl [Buspar] 5 mg PO TID 12/10/18 [History] Cetirizine HCl [24Hour Allergy] 5 mg PO DAILY 12/10/18 [History] Furosemide [Lasix] 60 mg PO BID 12/10/18 [History] Gabapentin [Neurontin] 300 mg PO DAILY 12/10/18 [History] Levothyroxine [Synthroid] 25 mcg PO QAM 12/10/18 [History] Melatonin/Pyridoxine HCl (B6) [Melatonin 3 mg Tablet] 3 mg PO HS PRN 12/10/18 [History] Paroxetine [Paxil] 30 mg PO QAM 12/10/18 [History] Acetaminophen [Tylenol] 650 mg PO Q6HR PRN tablet 12/14/18 [Rx] Aspirin Enteric Coated [Aspirin EC] 81 mg PO DAILY tablet. 12/14/18 [Rx] Ipratropium/Albuterol Neb [Duoneb] 3 ml IH [id number] PRN #160 inhsol 12/14/18 [Rx] Fluticasone Propionate Nasal [Flonase] 50 mcg NS DAILY PRN 04/26/19 [History] Niacin (24 HR) [Niaspan] 500 mg PO DAILY 04/28/19 [History] Isosorbide MONOnitrate (24 HR) [Imdur] 60 mg PO DAILY 30 Days #30 tab.er.24h 04/30/19 [Rx] Allergy/AdvReac Type Severity Reaction Status Date / Time codeine Allergy Unknown Hives Verified 05/21/19 06:33 methadone [Methadone] Allergy Unknown Rash Verified 05/21/19 06:33 Penicillins [PCN] Allergy Unknown Rash Verified 05/21/19 06:33 promethazine [From Phenergan] Allergy Unknown Hives Verified 05/21/19 06:33 trazodone Allergy Unknown Itching Verified 05/21/19 06:33 All Systems Review: The remainder of the systems were reviewed and are negative - Cardiovascular Cardiovascular: as per HPI, chest pain at rest, dyspnea on exertion Physical Examination Vital Signs, Last 4 Hours Temp Pulse Resp BP Pulse Ox 05/21/19 11:06 98.2 F 97 18 152/80 91 05/21/19 10:36 99 143/83 05/21/19 09:45 98.7 F 99 18 152/81 94 05/21/19 09:13 12 140/80 05/21/19 08:23 101 17 153/87 98 General: Conversant, No Apparent Distress HEENT: Atraumatic, Normocephaly, Mucus Membranes Moist Neck: No JVD, Normal carotid pulses Cardiac: Reg Rate and Rhythm, Normal S1 and S2, No Murmur Lungs: Normal Breath Sounds, No Wheeze, Rales, Rhonchi Neuro: Alert and responsive, No focal deficits noted Abdomen: Soft, Non-Tender Skin: No rashes noted on visualized skin Musculoskeletal: No Chest Wall Tenderness Extremities: No Clubbing, No Cyanosis, No Edema, Normal Pulses Results 05/21/19 08:26 05/21/19 06:55 Lab Results Impressions Chest X-Ray 05/21/19 06:25 IMPRESSION: 1. Cardiomegaly with increased pulmonary edema. D/ / Matthew Aguayo MD / Matthew Aguayo MD Interpreting Provider: Matthew Aguayo MD Active Medications Acetaminophen (Tylenol) 650 mg PO Q6HR PRN PRN Reason: Mild Pain/Fever Stop: 11/20/19 08:31 Albuterol/Ipratropium (Duoneb) 3 ml IH Q4WVESP PRN PRN Reason: Shortness Of Breath/Wheezing Stop: 11/20/19 08:31 Aspirin (Aspirin Ec) 81 mg PO DAILY ЕЛЕНА Stop: 11/20/19 09:01 Last Admin: 05/21/19 09:45 Dose: 81 mg Documented by: Atorvastatin Calcium (Lipitor) 40 mg PO HS ЕЛЕНА Stop: 11/20/19 21:01 Buspirone HCl (Buspar) 5 mg PO TID ЕЛЕНА Stop: 11/20/19 09:01 Last Admin: 05/21/19 09:46 Dose: 5 mg Documented by: Calcium Acetate (Phos-Lo) 1,334 mg PO TIDWM ЕЛЕНА Stop: 11/20/19 12:01 Clopidogrel Bisulfate (Plavix) 75 mg PO DAILY ЕЛЕНА Stop: 11/20/19 09:01 Last Admin: 05/21/19 09:46 Dose: 75 mg Documented by: Dextrose/Water (Dextrose 50% (Syg)) 25 ml IVP AD PRN PRN Reason: Hypoglycemia Stop: 11/20/19 08:33 Fluticasone Propionate (Flonase) 50 mcg NS DAILY PRN; Protocol PRN Reason: Congestion Stop: 11/20/19 08:31 Furosemide (Lasix) 60 mg PO BIDDIURETIC ЕЛЕНА Stop: 11/20/19 09:01 Last Admin: 05/21/19 09:46 Dose: 60 mg Documented by: Gabapentin (Neurontin) 300 mg PO DAILY ЕЛЕНА Stop: 11/20/19 09:01 Last Admin: 05/21/19 09:46 Dose: 300 mg Documented by: Glucagon (Glucagen) 1 mg IM ONCE PRN PRN Reason: Hypoglycemia Stop: 11/20/19 08:33 Glucose (Gluctose) 15 gm PO ONCE PRN PRN Reason: Hypoglycemia Stop: 11/20/19 08:33 Glucose (Gluctose) 30 gm PO ONCE PRN PRN Reason: Hypoglycemia Stop: 11/20/19 08:33 Heparin Sodium (Porcine) (Heparin) 4,000 unit IVP Q6HR PRN PRN Reason: SEE COMMENTS Stop: 11/20/19 08:15 Heparin Sodium (Porcine) (Heparin) 2,000 unit IVP Q6H PRN PRN Reason: SEE COMMENTS Stop: 11/20/19 08:15 Nitroglycerin (Nitroglycerin Premix 25 Mg/250 Ml) 25 mg in 250 mls @ 3 mls/hr IVC .Q24H ЕЛЕНА; Protocol Stop: 11/20/19 08:16 Last Titration: 05/21/19 10:51 Dose: 5 mcg/min, 3 mls/hr Documented by: Heparin Sodium/Dextrose (Heparin 25,000 Unit/250 Ml D5w) 25,000 unit in 250 mls @ 9.905 mls/hr IVC .Q24H ЕЛЕНА; Protocol Stop: 11/20/19 08:16 Last Admin: 05/21/19 09:55 Dose: 10.3 unit/kg/hr, 9.9 mls/hr Documented by: Dextrose (Dextrose 5%) 1,000 mls @ 100 mls/hr IVC .Q10H PRN PRN Reason: HYPOGLYCEMIA Stop: 11/20/19 08:33 Insulin Human Lispro (Humalog) 0 units SQ Q6HR ЕЛЕНА; Protocol Stop: 11/20/19 12:01 Isosorbide Mononitrate (Imdur) 60 mg PO DAILY [facility] Stop: 11/20/19 09:01 Last Admin: 05/21/19 09:46 Dose: 60 mg Documented by: Levothyroxine Sodium (Synthroid) 25 mcg PO 0630 [facility] Stop: 11/20/19 09:01 Last Admin: 05/21/19 09:46 Dose: 25 mcg Documented by: Loratadine (Claritin) 10 mg PO DAILY [facility] Stop: 11/20/19 09:01 Last Admin: 05/21/19 09:46 Dose: 10 mg Documented by: Metoprolol Tartrate (Lopressor) 12.5 mg PO BID [facility] Stop: 11/20/19 09:01 Last Admin: 05/21/19 09:45 Dose: 12.5 mg Documented by: Naloxone HCl (Narcan) 0.4 mg IVP Q2MPRN PRN PRN Reason: SEE COMMENTS Stop: 11/20/19 08:25 Omeprazole (Prilosec) 20 mg PO 0730 ЕЛЕНА Stop: 11/20/19 09:01 Last Admin: 05/21/19 09:46 Dose: 20 mg Documented by: Ondansetron HCl (Zofran) 4 mg IVP Q8HR PRN PRN Reason: Nausea And Vomiting Stop: 11/20/19 08:25 Oxycodone HCl (Roxicodone) 10 mg PO Q6HR PRN; Protocol PRN Reason: Severe Pain Stop: 11/20/19 08:31 Paroxetine HCl (Paxil) 30 mg PO QAM [facility]; Protocol Stop: 11/20/19 09:01 Last Admin: 05/21/19 09:45 Dose: 30 mg Documented by: Laboratory Tests 05/21/19 05/21/19 06:55 06:55 Hgb 9.5 L Plt Count 86 L Creatinine 4.54 H Troponin I 0.07 H* - Imaging and Cardiology Chest Xray: report reviewed Echo: pending, report reviewed Cardiac cath: report reviewed - EKG Interpretation EKG results cardiology: personally reviewed (ECG with SR, HR 87. Non-specific T wave abnormalities noted, improved appearance from 04/2019 ECG.), other Consult Discharge Plan - Plan [facility]errals: [facility]Primary Care Provider[facility] -
[2019-05-21] MEDS: Calcium Acetate 667 MG CAPSULE PO SCH ×2 (12:12→16:57)
[2019-05-21] MEDS ORDERED: *HR* Heparin 10,000 UNIT/10 ML VIAL IV PRN (12:15)
[2019-05-21] MEDS ORDERED: 0.9 % Sodium Chloride 250 ML IVC PRN (12:15)
--- NOTE | 2019-05-21 12:17 | Pre-Sedation Evaluation ---
Pre-sedation evaluation - Pre-sedation checklist Date of procedure: 05/21/19 Procedure: [facility] Recent Vitals: Last Vital Signs Temp 98.2 F 05/21/19 11:06 Pulse 97 05/21/19 11:06 Resp 18 05/21/19 11:06 BP 152/80 05/21/19 11:06 Pulse Ox 91 05/21/19 11:06 H&P (including ROS) documented in medical record: Yes Previous reaction to sedatives/anesthetics: No Dietary Status: NPO after Midnight Dentition: poor dentition ASA Classification *see protocol: CLASS II-Mild systemic disease Plan of Care: Pt appropriate candidate for procedure/moderate/conscious sedation, Risks/benefits of procedure/sedation discussed w/ patient/family Cardiac Registry (Cardio Only) - Functional Capacity Functional Capacity: >=4 METS with symptoms - Clincal Frailty Scale Clinical Frailty Scale: Managing Well
--- NOTE | 2019-05-21 15:02 | Pre-Sedation Evaluation ---
Pre-sedation evaluation - Pre-sedation checklist Date of procedure: 05/21/[address] [facility] Recent Vitals: Last Vital Signs Temp 98.2 F 05/21/19 11:06 Pulse 97 05/21/19 11:06 Resp 18 05/21/19 11:06 BP 152/80 05/21/19 11:06 Pulse Ox 91 05/21/19 11:06 H&P (including ROS) documented in medical record: Yes Previous reaction to sedatives/anesthetics: No Dietary Status: NPO after Midnight Airway Assessment: Patient can open mouth completely, TMJ function normal Dentition: poor dentition Possible difficult airway: No ASA Classification *see protocol: CLASS III-Severe systemic disease Cardiac Registry (Cardio Only) - Functional Capacity Functional Capacity: < 4 METS - Clincal Frailty Scale Clinical Frailty Scale: Managing Well
--- NOTE | 2019-05-21 15:04 | Event Note ---
Date of Encounter: 05/21/19 Time of Encounter: 15:02 - Cardiology Event Note Relook cath performed. Radial artery graft to diag 2 patent with proximal stenosis of 25% . ANGELO 3 flow [place] laft: LAD occluded left main /ostial circ: eccentric 70-75%. PTCA with 4.0 balloon. Good result ANGELO 3 flow pre and post. Recommend Increase medical therapy and statin dose. terminal clerk DAPT.
--- NOTE | 2019-05-21 15:20 | Invasive Diagnostic Lab Proc ---
Name: Orlando Velarde Date of Study: 05/21/2019 Date: 1955 Ht: 70.0in Medical Record#: [id number] Age: 64 Wt: 211.64lb Gender: Male BSA: 2.14 Order #: [id number] BMI: 30.37 Physicians Procedure Physician: vIan Ruiz MD, [facility] Referring MD: Referring MD: Staff Name Position Time In Praveen Bowling RN Tubing Supervisor 12:22 PM Obey Cobos RN Monitor 12:22 PM Mana Bender RT (R) Scrub 12:22 PM Marcia Ocampo RN Monitor 02:19 PM Antonette Borja RT (R) Scrub 02:19 PM Afia Castillo RT (R) Scrub 02:20 PM Praveen Bowling RN Tubing Supervisor 02:20 PM Indications Indication Unstable Angina Procedures Performed Procedure PRQ CARDIAC ANGIOPLAST 1 ART CORONARY ART/GRFT ANGIO S&I Pre-Procedure Checklist Informed consent is complete signed and on chart. H&P is on chart. ID band is on and ID verified with patient. Patient NPO for procedure The procedure was described for the patient and questions were answered. ECG is on chart. Plan of Care Patient will tolerate the procedure without complications. Adequate level of comfort will be maintained. Hemodynamics will remain stable Patient will recover from procedure without complications. Respiratory function will be maintained. Cardiac rhythm will remain stable. Patient temperature will be maintained. Patient and/or family have verbalized understanding of the procedure. Patient Education Intravenous Access Time IV Size Location DC'd Fluid/Drip Rate Units RN 11:54 AM 20g 1 11/20" Patent On Arrival Rt Arm 0.9NaCl 20 ml/hr Allergies Penicillins codeine promethazine trazodone methadone Vital Signs Time BP (mmHg) HR (bpm) O2 Sat. RR (bpm) LOC 12:23 PM / % 5 = Fully awake and oriented or at pre-proc level 12:50 PM 110 / 71 90 94 % 15 01:05 PM 123 / 73 89 97 % 17 01:20 PM 122 / 77 89 99 % 18 01:42 PM 120 / 77 87 99 % 18 01:50 PM 118 / 74 88 100 % 16 02:09 PM / % 5 = Fully awake and oriented or at pre-proc level 02:09 PM / % 4 = Oriented but drowsy 02:24 PM / % 4 = Oriented but drowsy 12:21 PM 125 / 73 94 94 % 22 12:26 PM 127 / 78 94 90 % 22 12:31 PM 121 / 69 94 89 % 18 12:36 PM 115 / 74 93 96 % 14 12:41 PM 118 / 70 % 02:06 PM 120 / 74 88 95 % 9 02:11 PM 119 / 79 89 95 % 12 02:16 PM 116 / 76 88 93 % 17 02:21 PM 114 / 71 87 94 % 16 02:26 PM 108 / 69 83 91 % 17 02:31 PM 111 / 66 85 93 % 26 02:36 PM 104 / 61 85 85 % 17 02:41 PM 106 / 70 84 87 % 17 02:46 PM 113 / 68 84 92 % 22 02:51 PM 110 / 66 85 87 % 15 Procedural Medications Time Medication Dose Units Method Given By 12:22 PM Oxygen 2 L/min nasal cannula Praveen Bowling RN 12:23 PM Nitroglycerin 5 mcg/min Intravenous 12:23 PM Versed 2 mg Intravenous Praveen Bowlnig RN 12:23 PM Fentanyl 50 mcg Intravenous Praveen Bowling RN 12:37 PM Lidocaine 2% 19 ml Subcutaneous Ivan Ruiz MD, FACC 02:06 PM Nitroglycerin 5 mcg Intravenous 02:09 PM Oxygen 2 L/min nasal cannula Praveen Bowling RN 02:13 PM Versed 2 mg Intravenous Praveen Bowling RN 02:18 PM Lidocaine 2% 18 ml Subcutaneous Ivan Ruiz MD, FACC 02:34 PM Heparin 5000 units Intravenous Praveen Bowling RN 02:52 PM Fentanyl 25 mcg Intravenous Praveen Bowling RN 02:59 PM Heparin 3000 units Intravenous Praveen Bowling RN ASA Classification: CLASS II- Mild systemic disease (i.e. well-controlled diabetes, hypertension, asthma, cigarette smoking) Hetal Score Preprocedure Postprocedure Activity 2- Moves 4 extremities sustained head lift Activity 2- Moves 4 extremities sustained head lift Circulation 2- SBP +/= 20 points of pre-anesthetic level Circulation 2- SBP +/= 20 points of pre-anesthetic level Consciousness 2- Awake and alert oriented x 3 Consciousness 2- Awake and alert oriented x 3 O2 Saturation 2- Able to maintain O2 satruation of 92% on room air O2 Saturation 2- Able to maintain O2 satruation of 92% on room air Respiratory 2- Able to deep breathe and cough well Respiratory 2- Able to deep breathe and cough well Total Score 10 Total Score 10 Contrast Agent: Isovue Diagnostic Contrast: 100 ml Total Contrast: 100 ml Fluoro Dose: 90 mGy Activated Clotting Time Time Seconds to Clot 02:48 PM 163 Procedure Log Time Note Enter By 12:20 PM Vitals capture started with the following parameters, Patient=Adult, Interval=5 min, Initial Odzqirzo=026 mmHg, Deflation Rate=3 mmHg, Cuff placed on Right Arm 12:21 PM HR=94 bpm, WBEF=750/73 mmhg, SpO2=94 %, Resp=22 B/min 12:21 PM Recorded ECG: HR=95 Condition=Condition 1 12:21 PM Pt arrived to [facility] at 12:21 oparker 12:22 PM Patient charges- Angio tray pack, Navilyst 3mm J, Pulse Oximetry and ACIST tubing and transducer cedwards 12:22 PM IV Supplies used: J loop Angio Cath. cedwards 12:22 PM Physician arrived 12:22 cedwards 12:22 PM ASA Class CLASS II- Mild systemic disease (i.e. well-controlled diabetes, hypertension, asthma, cigarette smoking) cedwards 12:22 PM Meet and ieshaet completed cedwards 12:22 PM Sign in performed according to hospital policy. Informed consent was obtained. cedwards 12:22 PM Procedure start 12: cedwards 12:22 PM Praveen Bowling RN Position: Tubing Supervisor Time in: : cedwards 12:22 PM Obey Cobos RN Position: Monitor Time in: : cedwards 12:22 PM Mana Bender RT (R) Position: Scrub Time in: : cedwards 12:22 PM Time: 12: Oxygen on at 2 L/min per nasal cannula by Praveen Bowling RN cedwards 12:23 PM Time: 12: Nitroglycerin 5 mcg/min Intravenous cedwards 12:23 PM Time: 12:23 Patient comfortable and pain free: No cedwards 12:23 PM Time: 12:23LOC: 5 = Fully awake and oriented or at pre-proc level cedwards 12:23 PM Chest pain at an 8 out of 10 cedwards 12:23 PM Time: 12:23 Versed 2 mg Intravenous Given by Praveen Bowling RN cedwards 12:24 PM Time: 12:23 Fentanyl 50 mcg Intravenous Given by Praveen Bowling RN cedwards 12:24 PM CathStat 12:26 PM HR=94 bpm, MXZN=979/78 mmhg, SpO2=90.0 %, Resp=22 B/min, EtCO2=28 mmHg, Comment=NSR 12:29 PM Clinical Presentation: Unstable angina cedwards 12:31 PM HR=94 bpm, HCPT=545/69 mmhg, SpO2=89.0 %, Resp=18 B/min, EtCO2=32 mmHg, Comment=NSR 12:33 PM Pressure channel 1 zero failed. 12:34 PM Pressure channel 1 zeroed. 12:34 PM Recorded ECG: HR=92 Condition=Condition 1 12:36 PM HR=93 bpm, JVVN=657/74 mmhg, SpO2=96.0 %, Resp=14 B/min, EtCO2=28 mmHg, Comment=NSR 12:36 PM Time out was performed according to hospital policy. Conscious sedation and anesthesia was achieved (see medication log with in this report above) cedwards 12:38 PM Time: 12:37 19 ml Lidocaine 2% to right groin Subcutaneous Given by Ivan Ruiz MD, [facility] cedwards 12:39 PM Case stopped due to STEMI in ER, Patient put in cath holding area, will resume case after emergency case from ER. cedwards 12:41 PM XCWN=197/70 mmhg 12:41 PM Vitals capture stopped. 12:51 PM Patient in cath holding bay 3 with no complaints sleeping at present time. cedwards 01:41 PM Patient with chest pain rated at an 8 out of 10. Resting quietly. States the chest pain just started. cedwards 01:50 PM cardiac rehab nurse in room at this time. [facility] 02:05 PM Vitals capture started with the following parameters, Patient=Adult, Interval=5 min, Initial Icpljfru=639 mmHg, Deflation Rate=3 mmHg, Cuff placed on Right Arm 02:06 PM Pt arrived to [facility] at 14:06 kmavis 02:06 PM Patient arrived at 14:06 with Nitroglycerin Intravenous drip @ 5 mcg kmavis 02:06 PM Physician arrived 14:06 [facility] 02:06 PM Meet and greet completed kmavis 02:06 PM Sign in performed according to hospital policy. Informed consent was obtained. kmavis 02:06 PM HR=88 bpm, AFVF=424/74 mmhg, SpO2=95 %, Resp=9 B/min 02:09 PM Procedure start 14:09 kmavis 02: PM Time: 14:09 Oxygen on at 2 L/min per nasal cannula by Praveen Bowling RN kmavis : PM Time: 14:09 Patient comfortable and pain free: Yes kmavis : PM Time: 14:09LOC: 5 = Fully awake and oriented or at pre-proc level kmavis 02:11 PM HR=89 bpm, LPGJ=118/79 mmhg, SpO2=95.0 %, Resp=12 B/min 02:13 PM Hair removed from procedure site in procedure lab using clippers. Bilateral groin prepped with Chloraprep by Afia Granda RT (R), then patient was draped. Skin intact. kmavis 02:13 PM Time: 14:13 Versed 2 mg Intravenous Given by Praveen Bowling RN kmavis 02:16 PM Time out was performed according to hospital policy. Conscious sedation and anesthesia was achieved (see medication log with in this report above) kmavis 02:16 PM HR=88 bpm, HNET=293/76 mmhg, SpO2=93.0 %, Resp=17 B/min 02:18 PM Access obtained by percutaneous puncture. 6Fr 10cm Terumo Ainsworth sheath placed in right Femoral artery. [id number] kmavis 02:18 PM Time: 14:18 18 ml Lidocaine 2% to right groin Subcutaneous Given by Ivan Ruiz MD, [facility] kmavis 02:18 PM Pressure channel 2 zeroed. 02:19 PM ASA Class CLASS II- Mild systemic disease (i.e. well-controlled diabetes, hypertension, asthma, cigarette smoking) kmavis 02:19 PM Marcia Ocampo RN Position: Monitor Time in: 14:19 kmavis 02:20 PM Antonette Borja RT (R) Position: Scrub Time in: 14:19 kmavis 02:20 PM Afia Castillo RT (R) Position: Scrub Time in: 14:20 kmavis 02:20 PM Andexler, Praveen S RN Position: Tubing Supervisor Time in: 14:20 kmavis 02:20 PM 5Fr FR 4 catheter inserted over the wire [facility] kmavis 02:20 PM 0.035 145cm Navilyst 3mmJ wire [id number] kmavis 02:21 PM Recorded Pressure: Ao, HR=87, Condition=Condition 1 (Aorta) Ao 113/68/88 02:21 PM Radial artery to 2nd diag. performed in multiple views. kmavis 02:21 PM HR=87 bpm, FBEW=012/71 mmhg, SpO2=94.0 %, Resp=16 B/min 02:24 PM Catheter removed kmavis 02:24 PM 5Fr FL 3.5 catheter inserted over the wire [facility] kmavis 02:24 PM Time: 14:09 Patient comfortable and pain free: Yes kmavis 02:24 PM Time: 14:09LOC: 4 = Oriented but drowsy kmavis 02:25 PM LCA angiography performed in multiple views. kmavis 02:25 PM Time: 14:52 Fentanyl 25 mcg Intravenous Given by Praveen Bowling RN kmavis 02:25 PM Recorded Pressure: Ao, HR=86, Condition=Condition 1 (Aorta) Ao 107/63/82 02:26 PM HR=83 bpm, BEHN=334/69 mmhg, SpO2=91.0 %, Resp=17 B/min 02:28 PM Catheter removed kmavis 02:29 PM 6Fr XB3.5 Cordis guide catheter was used to cannulate the PCI vessel successfully. reused? No kmavis 02:30 PM LCA angiography performed in multiple views. kmavis 02:31 PM HR=85 bpm, YMIC=580/66 mmhg, SpO2=93.0 %, Resp=26 B/min 02:33 PM .014 Balance 300cm guide wire across target lesion- successful. reused? No kmavis 02:33 PM Inflation device was opened. kmavis 02:33 PM 4.0 mm x 12mm NC Emerge balloon across target lesion- successful. reused? No kmavis 02:35 PM Time: 14:34 Heparin 5000 units Intravenous Given by Praveen Bowling RN avis 02:35 PM Recorded Pressure: Ao, HR=85, Condition=Condition 1 (Aorta) Ao 95/60/74 02:36 PM HR=85 bpm, UAMS=476/61 mmhg, SpO2=85.0 %, Resp=17 B/min 02:37 PM Balloon inflated @ 10 cassi for 22 seconds kmavis 02:37 PM Balloon inflated @ 9 cassi for 8 seconds kmavis 02:39 PM Balloon catheter removed intact. kmavis 02:39 PM Time: 14:24LOC: 4 = Oriented but drowsy kmavis 02:40 PM Time: 14:24 Patient comfortable and pain free: Yes kmavis 02:40 PM 4.0 mm x 20mm NC Emerge balloon across target lesion- successful. reused? No kmavis 02:41 PM HR=84 bpm, LZHF=450/70 mmhg, SpO2=87.0 %, Resp=17 B/min 02:42 PM Balloon inflated @ 11 cassi for 44 seconds kmavis 02:45 PM Balloon catheter removed intact. kmavis 02:46 PM HR=84 bpm, BYUL=988/68 mmhg, SpO2=92.0 %, Resp=22 B/min 02:47 PM hand injected contrast to right groin kmavis 02:49 PM At 14:48 the ACT was 163 seconds. kmavis 02:49 PM Coronary Dominance: Left kmavis 02:50 PM Procedure completed at 14:50 05/21/2019 kmavis 02:50 PM Did you address ANGELO flow and Dominance? YesCoronary Dominance: Left kmavis 02:50 PM Sign out completed: Radiation Dose 720 mGy, 89.5 Gy/cm2 Fluoro Time: 6.1 Isovue 370 - 200ml contrast 100 ml given by Ivan Ruiz MD, FACC. Complications: None. The patient was discharged out of the blood and plasma laboratory assistant in stable condition. Sedation minutes 40. Cardiac Rehab Consult needed: Yes. Confirmed administered medications: Yes kmavis 02:50 PM Isovue 370 - 200ml,1 Bottle(s) used. kmavis 02:51 PM Arterial sheath pulled, Perclose closure device used and was Successful [id number] S/N. kmavis 02:51 PM Estimated Blood Loss: minimal kmavis 02:51 PM Post Blood Pressure 113/68 kmavis 02:51 PM Information taught Cardiac Cath and Perclose kmavis 02:51 PM HR=85 bpm, MXOB=919/66 mmhg, SpO2=87.0 %, Resp=15 B/min 02:52 PM Education needs Procedure, Plan of Care, and Disease Process kmavis 02:52 PM Learning barriers :None kmavis 02:52 PM Education Methods Verbal kmavis 02:52 PM Education evaluation Able to repeat information kmavis 02:53 PM Site status No bleeding/ No Hematoma - Rt Groin as reported by Antonette Borja RT (R) at 14:52 kmavis 02:53 PM Opsite applied kmavis 02:53 PM Plavix, Effient or Brilinta given Yes kmavis 02:54 PM Delay to floor No kmavis 02:54 PM Family placed in consult room. kmavis 02:54 PM Complications: None kmavis 02:58 PM Report given to Shanell CONTEH Pt taken to 2A Room #51. 14:56 kmavis 03:00 PM Time: 14:59 Heparin 3000 units Intravenous Given by Praveen Bowling RN kmavis 03:01 PM Lesion found in Distal LMCA. Pre Stenosis: 75 Pre ANGELO Flow: 3: Complete and Brisk Flow/Perfusion kmavis 03:01 PM Left Main Coronary Artery with 75% stenosis kmavis 03:02 PM Lesion found in 2nd Diagonal. Pre Stenosis: 25 Pre ANGELO Flow: kmavis 03:03 PM Mid/Distal Left Anterior Descending Coronary Artery and diagonal branches with 0% stenosis. If graft is supplying this area, 25 % stenosis kmavis 03:05 PM Patient out of room: 15:05 kmavis Complications Complication None None Hemodynamics Pressures Site Systolic/A Wave Diastolic/V Wave Mean AO 113 68 88 AO 107 63 82 AO 95 60 74 Post Procedure Information Blood Pressure: 113/68 mmHg Post procedural instructions were given Closure Device Time Device Success/Fail 05/21/2019 3:05:00 PM Perclose ProGlide Successful Site Checks Time Location Status Staff Sheath In? Note 02:52 PM Rt Groin No bleeding/ No Hematoma Antonette Borja RT (R) Pulses Time Site Pre-Procedure Post-Procedure Note 05/21/2019 11:55:00 AM Bilateral DP 2+ 05/21/2019 11:55:00 AM Bilateral radial 2+ Updated by Marcia Ocampo RN on 05/21/2019 3:12:42 PM electronically signed on 05/21/2019 3:13:29 PM with status of Final
--- NOTE | 2019-05-21 15:25 | Invasive Diagnostic Lab Proc ---
Name: Orlando Velarde Date of Study: 05/21/2019 Date: 1955 Ht: 70.0in Medical Record#: [id number] Age: 64 Wt: 211.64lb Gender: Male BSA: 2.14 Order #: [id number] BMI: 30.37 Physicians Procedure Physician: James Castro MD Referring MD: Referring MD: Staff Name Position Time In Praveen Bowling RN Computer Forensics Technician 12:22 PM Obey Cobos RN Monitor 12:22 PM Mana Bender RT (R) Scrub 12:22 PM Marcia Ocampo RN Monitor 02:19 PM Antonette Borja RT (R) Scrub 02:19 PM Afia Castillo RT (R) Scrub 02:20 PM Praveen Bowling RN Computer Forensics Technician 02:20 PM Indications Indication Unstable Angina Procedures Performed Procedure PRQ CARDIAC ANGIOPLAST 1 ART CORONARY ART/GRFT ANGIO S&I Pre-Procedure Checklist Informed consent is complete signed and on chart. H&P is on chart. ID band is on and ID verified with patient. Patient NPO for procedure The procedure was described for the patient and questions were answered. ECG is on chart. Plan of Care Patient will tolerate the procedure without complications. Adequate level of comfort will be maintained. Hemodynamics will remain stable Patient will recover from procedure without complications. Respiratory function will be maintained. Cardiac rhythm will remain stable. Patient temperature will be maintained. Patient and/or family have verbalized understanding of the procedure. Patient Education Intravenous Access Time IV Size Location DC'd Fluid/Drip Rate Units RN 11:54 AM 20g 1 11/20" Patent On Arrival Rt Arm 0.9NaCl 20 ml/hr Allergies Penicillins codeine promethazine trazodone methadone Vital Signs Time BP (mmHg) HR (bpm) O2 Sat. RR (bpm) LOC 12:23 PM / % 5 = Fully awake and oriented or at pre-proc level 12:50 PM 110 / 71 90 94 % 15 01:05 PM 123 / 73 89 97 % 17 01:20 PM 122 / 77 89 99 % 18 01:42 PM 120 / 77 87 99 % 18 01:50 PM 118 / 74 88 100 % 16 02:09 PM / % 5 = Fully awake and oriented or at pre-proc level 02:09 PM / % 4 = Oriented but drowsy 02:24 PM / % 4 = Oriented but drowsy 12:21 PM 125 / 73 94 94 % 22 12:26 PM 127 / 78 94 90 % 22 12:31 PM 121 / 69 94 89 % 18 12:36 PM 115 / 74 93 96 % 14 12:41 PM 118 / 70 % 02:06 PM 120 / 74 88 95 % 9 02:11 PM 119 / 79 89 95 % 12 02:16 PM 116 / 76 88 93 % 17 02:21 PM 114 / 71 87 94 % 16 02:26 PM 108 / 69 83 91 % 17 02:31 PM 111 / 66 85 93 % 26 02:36 PM 104 / 61 85 85 % 17 02:41 PM 106 / 70 84 87 % 17 02:46 PM 113 / 68 84 92 % 22 02:51 PM 110 / 66 85 87 % 15 Procedural Medications Time Medication Dose Units Method Given By 12:22 PM Oxygen 2 L/min nasal cannula Praveen Bowling RN 12:23 PM Nitroglycerin 5 mcg/min Intravenous 12:23 PM Versed 2 mg Intravenous Praveen Bowling RN 12:23 PM Fentanyl 50 mcg Intravenous Praveen Bowling RN 12:37 PM Lidocaine 2% 19 ml Subcutaneous Ivan Ruiz MD 02:06 PM Nitroglycerin 5 mcg Intravenous 02:09 PM Oxygen 2 L/min nasal cannula Praveen Bowling RN 02:13 PM Versed 2 mg Intravenous Praveen Bowling RN 02:18 PM Lidocaine 2% 18 ml Subcutaneous James Castro MD 02:34 PM Heparin 5000 units Intravenous Praveen Bowling RN 02:52 PM Fentanyl 25 mcg Intravenous Praveen Bowling RN 02:59 PM Heparin 3000 units Intravenous Praveen Bowling RN ASA Classification: CLASS II- Mild systemic disease (i.e. well-controlled diabetes, hypertension, asthma, cigarette smoking) Hetal Score Preprocedure Postprocedure Activity 2- Moves 4 extremities sustained head lift Activity 2- Moves 4 extremities sustained head lift Circulation 2- SBP +/= 20 points of pre-anesthetic level Circulation 2- SBP +/= 20 points of pre-anesthetic level Consciousness 2- Awake and alert oriented x 3 Consciousness 2- Awake and alert oriented x 3 O2 Saturation 2- Able to maintain O2 satruation of 92% on room air O2 Saturation 2- Able to maintain O2 satruation of 92% on room air Respiratory 2- Able to deep breathe and cough well Respiratory 2- Able to deep breathe and cough well Total Score 10 Total Score 10 Contrast Agent: Isovue Diagnostic Contrast: 100 ml Total Contrast: 100 ml Fluoro Dose: 90 mGy Activated Clotting Time Time Seconds to Clot 02:48 PM 163 Procedure Log Time Note Enter By 12:20 PM Vitals capture started with the following parameters, Patient=Adult, Interval=5 min, Initial Miwiqklw=132 mmHg, Deflation Rate=3 mmHg, Cuff placed on Right Arm 12:21 PM HR=94 bpm, RPIW=588/73 mmhg, SpO2=94 %, Resp=22 B/min 12:21 PM Recorded ECG: HR=95 Condition=Condition 1 12:21 PM Pt arrived to laboratory engineer 2 at 12:21 oparker 12:22 PM Patient charges- Angio tray pack, Navilyst 3mm J, Pulse Oximetry and ACIST tubing and transducer cedwards 12:22 PM IV Supplies used: J loop Angio Cath. cedwards 12:22 PM Physician arrived 12:22 cedwards 12:22 PM ASA Class CLASS II- Mild systemic disease (i.e. well-controlled diabetes, hypertension, asthma, cigarette smoking) cedwards 12:22 PM Meet and olivier completed cedwards 12:22 PM Sign in performed according to hospital policy. Informed consent was obtained. cedwards 12:22 PM Procedure start 12: cedwards 12:22 PM Praveen Bowling RN Position: Computer Forensics Technician Time in: : cedwards 12:22 PM Obey Cobos RN Position: Monitor Time in: : cedwards 12:22 PM Mana Bender RT (R) Position: Scrub Time in: : cedwards 12:22 PM Time: 12: Oxygen on at 2 L/min per nasal cannula by Praveen Bowling RN cedwards 12:23 PM Time: 12: Nitroglycerin 5 mcg/min Intravenous cedwards 12:23 PM Time: 12: Patient comfortable and pain free: No cedwards 12:23 PM Time: 12:LOC: 5 = Fully awake and oriented or at pre-proc level cedwards 12:23 PM Chest pain at an 8 out of 10 cedwards 12:23 PM Time: : Versed 2 mg Intravenous Given by Praveen Bowling RN cedwards 12:24 PM Time: 12:23 Fentanyl 50 mcg Intravenous Given by Praveen Bowling RN cedwards 12:24 PM CathStat 12:26 PM HR=94 bpm, CFUM=639/78 mmhg, SpO2=90.0 %, Resp=22 B/min, EtCO2=28 mmHg, Comment=NSR 12:29 PM Clinical Presentation: Unstable angina cedwards 12:31 PM HR=94 bpm, QRCH=178/69 mmhg, SpO2=89.0 %, Resp=18 B/min, EtCO2=32 mmHg, Comment=NSR 12:33 PM Pressure channel 1 zero failed. 12:34 PM Pressure channel 1 zeroed. 12:34 PM Recorded ECG: HR=92 Condition=Condition 1 12:36 PM HR=93 bpm, SAGW=190/74 mmhg, SpO2=96.0 %, Resp=14 B/min, EtCO2=28 mmHg, Comment=NSR 12:36 PM Time out was performed according to hospital policy. Conscious sedation and anesthesia was achieved (see medication log with in this report above) cedwards 12:38 PM Time: 12:37 19 ml Lidocaine 2% to right groin Subcutaneous Given by Ivan Ruiz MD, [facility] cedwards 12:39 PM Case stopped due to STEMI in ER, Patient put in cath holding area, will resume case after emergency case from ER. cedwards 12:41 PM FAPH=293/70 mmhg 12:41 PM Vitals capture stopped. 12:51 PM Patient in cath holding bay 3 with no complaints sleeping at present time. cedwards 01:41 PM Patient with chest pain rated at an 8 out of 10. Resting quietly. States the chest pain just started. cedwards 01:50 PM cardiac rehab nurse in room at this time. avis 02:05 PM Vitals capture started with the following parameters, Patient=Adult, Interval=5 min, Initial Oguhqzfw=593 mmHg, Deflation Rate=3 mmHg, Cuff placed on Right Arm 02:06 PM Pt arrived to laboratory engineer 2 at 14:06 kmavis 02:06 PM Patient arrived at 14:06 with Nitroglycerin Intravenous drip @ 5 mcg kmavis 02:06 PM Physician arrived 14:06 kmavis 02:06 PM Meet and greet completed kmavis 02:06 PM Sign in performed according to hospital policy. Informed consent was obtained. kmavis 02:06 PM HR=88 bpm, XOOW=274/74 mmhg, SpO2=95 %, Resp=9 B/min 02:09 PM Procedure start 14:09 kmavis 02:09 PM Time: 14:09 Oxygen on at 2 L/min per nasal cannula by Praveen Bowling RN avis 02: PM Time: 14:09 Patient comfortable and pain free: Yes avis : PM Time: 14:09LOC: 5 = Fully awake and oriented or at pre-proc level kmavis 02:11 PM HR=89 bpm, WUWS=303/79 mmhg, SpO2=95.0 %, Resp=12 B/min 02:13 PM Hair removed from procedure site in procedure lab using clippers. Bilateral groin prepped with Chloraprep by Afia Granda (R), then patient was draped. Skin intact. avis 02:13 PM Time: 14:13 Versed 2 mg Intravenous Given by Praveen Bowling RN avis 02:16 PM Time out was performed according to hospital policy. Conscious sedation and anesthesia was achieved (see medication log with in this report above) kmavis 02:16 PM HR=88 bpm, MTFS=643/76 mmhg, SpO2=93.0 %, Resp=17 B/min 02:18 PM Access obtained by percutaneous puncture. 6Fr 10cm Terumo Clover sheath placed in right Femoral artery. [id number] kmavis 02:18 PM Time: 14:18 18 ml Lidocaine 2% to right groin Subcutaneous Given by James Castro MD [facility] avis 02:18 PM Pressure channel 2 zeroed. 02:19 PM ASA Class CLASS II- Mild systemic disease (i.e. well-controlled diabetes, hypertension, asthma, cigarette smoking) kmavis 02:19 PM Marcia Ocampo RN Position: Monitor Time in: 14:19 kmavis 02:20 PM Antonette Borja RT (R) Position: Scrub Time in: 14:19 kmavis 02:20 PM Afia Castillo RT (R) Position: Scrub Time in: 14:20 kmavis 02:20 PM Praveen Bowling RN Position: Computer Forensics Technician Time in: 14:20 kmavis 02:20 PM 5Fr FR 4 catheter inserted over the wire [facility] kmavis 02:20 PM 0.035 145cm Navilyst 3mmJ wire [id number] kmavis 02:21 PM Recorded Pressure: Ao, HR=87, Condition=Condition 1 (Aorta) Ao 113/68/88 02:21 PM Radial artery to 2nd diag. performed in multiple views. kmavis 02:21 PM HR=87 bpm, UDYY=778/71 mmhg, SpO2=94.0 %, Resp=16 B/min 02:24 PM Catheter removed kmavis 02:24 PM 5Fr FL 3.5 catheter inserted over the wire [facility] kmavis 02:24 PM Time: 14:09 Patient comfortable and pain free: Yes kmavis 02:24 PM Time: 14:09LOC: 4 = Oriented but drowsy kmavis 02:25 PM LCA angiography performed in multiple views. kmavis 02:25 PM Time: 14:52 Fentanyl 25 mcg Intravenous Given by Praveen Bowling RN kmavis 02:25 PM Recorded Pressure: Ao, HR=86, Condition=Condition 1 (Aorta) Ao 107/63/82 02:26 PM HR=83 bpm, COHO=503/69 mmhg, SpO2=91.0 %, Resp=17 B/min 02:28 PM Catheter removed kmavis 02:29 PM 6Fr XB3.5 Cordis guide catheter was used to cannulate the PCI vessel successfully. reused? No kmavis 02:30 PM LCA angiography performed in multiple views. kmavis 02:31 PM HR=85 bpm, XUDG=383/66 mmhg, SpO2=93.0 %, Resp=26 B/min 02:33 PM .014 Balance 300cm guide wire across target lesion- successful. reused? No kmavis 02:33 PM Inflation device was opened. kmavis 02:33 PM 4.0 mm x 12mm NC Emerge balloon across target lesion- successful. reused? No kmavis 02:35 PM Time: 14:34 Heparin 5000 units Intravenous Given by Praveen Bowling RN avis 02:35 PM Recorded Pressure: Ao, HR=85, Condition=Condition 1 (Aorta) Ao 95/60/74 02:36 PM HR=85 bpm, DQJN=158/61 mmhg, SpO2=85.0 %, Resp=17 B/min 02:37 PM Balloon inflated @ 10 cassi for 22 seconds kmavis 02:37 PM Balloon inflated @ 9 cassi for 8 seconds kmavis 02:39 PM Balloon catheter removed intact. kmavis 02:39 PM Time: 14:24LOC: 4 = Oriented but drowsy kmavis 02:40 PM Time: 14:24 Patient comfortable and pain free: Yes kmavis 02:40 PM 4.0 mm x 20mm NC Emerge balloon across target lesion- successful. reused? No kmavis 02:41 PM HR=84 bpm, MAWG=467/70 mmhg, SpO2=87.0 %, Resp=17 B/min 02:42 PM Balloon inflated @ 11 cassi for 44 seconds kmavis 02:45 PM Balloon catheter removed intact. kmavis 02:46 PM HR=84 bpm, XQYY=346/68 mmhg, SpO2=92.0 %, Resp=22 B/min 02:47 PM hand injected contrast to right groin kmavis 02:49 PM At 14:48 the ACT was 163 seconds. kmavis 02:49 PM Coronary Dominance: Left kmavis 02:50 PM Procedure completed at 14:50 05/21/2019 kmavis 02:50 PM Did you address ANGELO flow and Dominance? YesCoronary Dominance: Left kmavis 02:50 PM Sign out completed: Radiation Dose 720 mGy, 89.5 Gy/cm2 Fluoro Time: 6.1 Isovue 370 - 200ml contrast 100 ml given by Ivan Ruiz MD, FACC. Complications: None. The patient was discharged out of the brick and blocker aid labor in stable condition. Sedation minutes 40. Cardiac Rehab Consult needed: Yes. Confirmed administered medications: Yes kmavis 02:50 PM Isovue 370 - 200ml,1 Bottle(s) used. kmavis 02:51 PM Arterial sheath pulled, Perclose closure device used and was Successful [id number] S/N. kmavis 02:51 PM Estimated Blood Loss: minimal kmavis 02:51 PM Post Blood Pressure 113/68 kmavis 02:51 PM Information taught Cardiac Cath and Perclose kmavis 02:51 PM HR=85 bpm, FWUB=479/66 mmhg, SpO2=87.0 %, Resp=15 B/min 02:52 PM Education needs Procedure, Plan of Care, and Disease Process kmavis 02:52 PM Learning barriers :None kmavis 02:52 PM Education Methods Verbal kmavis 02:52 PM Education evaluation Able to repeat information kmavis 02:53 PM Site status No bleeding/ No Hematoma - Rt Groin as reported by Antonette Borja RT (R) at 14:52 kmavis 02:53 PM Opsite applied kmavis 02:53 PM Plavix, Effient or Brilinta given Yes kmavis 02:54 PM Delay to floor No kmavis 02:54 PM Family placed in consult room. kmavis 02:54 PM Complications: None kmavis 02:58 PM Report given to Shanell CONTEH Pt taken to 2A Room #51. 14:56 kmavis 03:00 PM Time: 14:59 Heparin 3000 units Intravenous Given by Praveen Bowling RN kmavis 03:01 PM Lesion found in Distal LMCA. Pre Stenosis: 75 Pre ANGELO Flow: 3: Complete and Brisk Flow/Perfusion kmavis 03:01 PM Left Main Coronary Artery with 75% stenosis kmavis 03:02 PM Lesion found in 2nd Diagonal. Pre Stenosis: 25 Pre ANGELO Flow: kmavis 03:03 PM Mid/Distal Left Anterior Descending Coronary Artery and diagonal branches with 0% stenosis. If graft is supplying this area, 25 % stenosis kmavis 03:05 PM Patient out of room: 15:05 kmavis Complications Complication None None Hemodynamics Pressures Site Systolic/A Wave Diastolic/V Wave Mean AO 113 68 88 AO 107 63 82 AO 95 60 74 Post Procedure Information Blood Pressure: 113/68 mmHg Post procedural instructions were given Closure Device Time Device Success/Fail 05/21/2019 3:05:00 PM Perclose ProGlide Successful Site Checks Time Location Status Staff Sheath In? Note 02:52 PM Rt Groin No bleeding/ No Hematoma Antonette Borja RT (R) Pulses Time Site Pre-Procedure Post-Procedure Note 05/21/2019 11:55:00 AM Bilateral DP 2+ 05/21/2019 11:55:00 AM Bilateral radial 2+ Updated by Marcia Ocampo RN on 05/21/2019 3:16:17 PM electronically signed on 05/21/2019 3:16:47 PM with status of Final
--- NOTE | 2019-05-21 15:39 | Nephrology Consult Note ---
Date of Encounter: 05/21/19 Time of Encounter: 12:00 Assessment and Plan (1) ESRD (end stage renal disease) on dialysis Current Visit: No Status: Chronic Orders given for HD today after [facility] Renal diet advised Fluid restriction advised Lytes stable History of Present Illness - Reason for Consult Consult date: 05/21/19 end stage renal disease Requesting physician: Erin Calhoun - History of Present Illness 64 y o male with PMH of ESRd on HD admitted with chest pain Past Med Surg Social Fam HX - Past Medical History Medical history: coronary artery disease, diabetes, dialysis, GERD, hyperlipidemia, hypertension, myocardial infarction, renal disease, other Additional medical history: C1,2 L 5,6 arthritis , "nerve damage " Psychiatric history: anxiety, depression - Past Surgical History Surgical History: angioplasty/stent, coronary bypass (CABG) (2v CABG in 1998, re do 3v CABG in 2002), orthopedic, other (Surgery on right knee x4, scope on left knee x1), other (Amputation of left great toe, re-attachment of right hand after accident at work) Additional surgical history: cardiac stents 04/2018 , cabg 99 and 03 , Right hand re attached previous work accident, toe left great toe, left 3rd finger unable to extend finger for a couple years . multiple knee scopes ,arthritis , left antecubital AV fistula creation at [facility]. - Social History Smoking Status: Never smoker Smokeless Tobacco Status: No Alcohol use: none Drug use: none - Family History Father Adopted: No Family Member Ethnicity: Non- Living Status: Still Living Hx Family Cardiac Disorders: Yes (Coronary artery disease?) Hx Family Respiratory Disorders: No Hx Family Cancer: Yes Hx Family GI Disorders: No Hx Family Endocrine Disorder: Yes (brothers, sister) Hx Family Neuromuscular Disorders: No Hx Family Neurologic Disorders: No Hx Family HEENT Disorders: No Hx Family Autoimmune Disorders: No Brother Family Member Ethnicity: Non- Living Status: Still Living Hx Family Cardiac Disorders: Yes ([place]) Sister Family Member Ethnicity: Non- Living Status: Still Living Hx Family Endocrine Disorder: Yes (DM) Mother Adopted: No Family Member Ethnicity: Non- Living Status: Still Living Hx Family Cardiac Disorders: Yes ([place], Pacemaker) Hx Family Respiratory Disorders: Yes (COPD) Hx Family Cancer: Yes Hx Family GI Disorders: No Hx Family Endocrine Disorder: Yes (DM) Hx Family Neuromuscular Disorders: No Hx Family Neurologic Disorders: No Hx Family HEENT Disorders: No Hx Family Autoimmune Disorders: No Medications and Allergies Calcium Acetate [Phos-LO] 1,334 mg PO TIDWM 10/04/16 [History] Pantoprazole Sodium [Protonix] 40 mg PO DAILY 10/04/16 [History] Ranitidine HCl [Heartburn Relief] 150 mg PO DAILY 10/04/16 [History] Insulin ASPART [NovoLOG] 45 unit SQ BIDWM 04/25/17 [History] Clopidogrel [Plavix] 75 mg PO DAILY #30 tablet 04/28/17 [Rx] Insulin Glargine,Hum.rec.anlog [Lantus Solostar] 90 unit SQ BID 01/29/18 [History] Renal Vitamin [Renal Caps Softgel] 1 mg PO DAILY 01/29/18 [History] OxyCODONE Immed Rel [Roxicodone 5 MG] 10 mg PO Q6HR PRN 04/27/18 [History] Metoprolol [Lopressor] 12.5 mg PO BID tablet 04/29/18 [Rx] Atorvastatin Calcium [Lipitor] 40 mg PO HS 12/10/18 [History] Buspirone HCl [Buspar] 5 mg PO TID 12/10/18 [History] Cetirizine HCl [24Hour Allergy] 5 mg PO DAILY 12/10/18 [History] Furosemide [Lasix] 60 mg PO BID 12/10/18 [History] Gabapentin [Neurontin] 300 mg PO DAILY 12/10/18 [History] Levothyroxine [Synthroid] 25 mcg PO QAM 12/10/18 [History] Melatonin/Pyridoxine HCl (B6) [Melatonin 3 mg Tablet] 3 mg PO HS PRN 12/10/18 [History] Paroxetine [Paxil] 30 mg PO QAM 12/10/18 [History] Acetaminophen [Tylenol] 650 mg PO Q6HR PRN tablet 12/14/18 [Rx] Aspirin Enteric Coated [Aspirin EC] 81 mg PO DAILY tablet. 12/14/18 [Rx] Ipratropium/Albuterol Neb [Duoneb] 3 ml IH [id number] PRN #160 inhsol 12/14/18 [Rx] Fluticasone Propionate Nasal [Flonase] 50 mcg NS DAILY PRN 06/10/19 [History] Niacin (24 HR) [Niaspan] 500 mg PO DAILY 04/28/19 [History] Isosorbide MONOnitrate (24 HR) [Imdur] 60 mg PO DAILY 30 Days #30 tab.er.24h 04/30/19 [Rx] Allergy/AdvReac Type Severity Reaction Status Date / Time codeine Allergy Unknown Hives Verified 05/21/19 06:33 methadone [Methadone] Allergy Unknown Rash Verified 05/21/19 06:33 Penicillins [PCN] Allergy Unknown Rash Verified 05/21/19 06:33 promethazine [From Phenergan] Allergy Unknown Hives Verified 05/21/19 06:33 trazodone Allergy Unknown Itching Verified 05/21/19 06:33 Exam - Vital Signs Vital signs: Initial Vital Signs Temp Pulse Resp BP Pulse Ox 98 F 85 18 150/75 96 05/21/19 06:20 05/21/19 06:20 05/21/19 06:20 05/21/19 06:20 05/21/19 06:20 Vital Signs - Last 8 Hours Temp Pulse Resp BP Pulse Ox 05/21/19 11:06 98.2 F 97 18 152/80 91 05/21/19 10:36 99 143/83 05/21/19 09:45 98.7 F 99 18 152/81 94 05/21/19 09:13 12 140/80 05/21/19 08:23 101 17 153/87 98 Intake and Output 05/20/19 05/21/19 05/21/19 23:59 07:59 15:59 Intake Total Output Total 200 / 200 Balance -191 / -191 Intake: IV Fluids Nitroglycerin Premix 25 MG/250 ML 25 mg In 250 ml @ 5 MCG/MIN 3 mls/hr IVC .Q24H ЕЛЕНА Rx#: [id number] Oral 0 / 0 Output: Urine 200 / 200 Other: Meal NPO Percent of Meal Consumed 0% Weight 96.162 kg Blood Glucose* 341 Patient Weight 05/21/19 23:59 Weight 96.162 kg Results - Lab Results 05/21/19 08:26 05/21/19 06:55 Most recent lab results 05/21/19 06:55 Calcium 8.9 Consult Discharge Plan - Plan [facility]errals: [facility] [Primary Care Provider] -
[2019-05-21] MEDS ORDERED: Perflutren Lipid Microsphere 1.3 ML in 0.9 % Sodium Chloride 8.7 ML IVP ONE (19:35)
[2019-05-21] MEDS: Insulin LISPRO 300 UNITS/3 ML VIAL SQ SCH (20:17)
[2019-05-21] MEDS: Insulin DETEMIR 100 UNIT/ML X5UNITS SQ SCH (20:55)
[2019-05-22 02:35] LABS: Basophils % 0.3 %; Immature Granulocytes % 0.7 % (0-4)
[2019-05-22 02:36] LABS: Hematocrit 26.2 % (37.5-50.1); Hemoglobin 8.9 g/dL (12.9-16.9); Immature Platelets 7.2 % (1.1-6.1); Lymphocytes % 22.2 %; Mean Corpuscular Hemoglobin 30.8 pg (28.0-33.3); Mean Corpuscular Volume 90.7 fL (83.0-100.0); Mean Platelet Volume 12.3 fL (9.4-12.4); Monocytes % 8.8 %; Red Blood Count 2.89 M/mcL (4.19-5.50); Red Cell Distribution Width 14.1 % (11.5-14.5)
[2019-05-22 02:37] LABS: Lymphocytes # 0.7 K/mcL (0.6-4.6); Monocytes # 0.3 K/mcL (0.0-1.3)
[2019-05-22 02:50] LABS: Calcium 8.3 mg/dL (8.6-10.3); Magnesium 1.7 mg/dL (1.6-2.6); Potassium 5.2 mEq/L (3.5-5.1)
[2019-05-22 03:00] LABS: Platelet Count 67 K/mcL (140-400)
[2019-05-22 03:20] LABS: Platelet Estimate Decreased (Normal)
[2019-05-22] MEDS: Levothyroxine 25 MCG TABLET PO SCH (06:23)
[2019-05-22] MEDS: Furosemide 20 MG TABLET PO SCH ×2 (08:23→16:38)
[2019-05-22] MEDS: Isosorbide MONOnitrate (24 HR) 60 MG TAB.ER.24H PO SCH (08:23)
[2019-05-22] MEDS: Insulin DETEMIR 100 UNIT/ML X5UNITS SQ SCH ×2 (08:23→20:24)
[2019-05-22] MEDS: Aspirin 81 MG TAB.CHEW PO SCH (08:24)
[2019-05-22] MEDS: Calcium Acetate 667 MG CAPSULE PO SCH ×3 (08:24→16:38)
[2019-05-22] MEDS: Loratadine 10 MG TABLET PO SCH (08:24)
[2019-05-22] MEDS: Gabapentin 300 MG CAPSULE PO SCH (08:24)
[2019-05-22] MEDS: Insulin LISPRO 300 UNITS/3 ML VIAL SQ SCH ×4 (08:27→20:25)
--- NOTE | 2019-05-22 11:06 | Nephrology Progress Note ---
Date of Encounter: 05/22/19 Time of Encounter: 11:00 - Assessment and Plan (1) ESRD (end stage renal disease) on dialysis Current Visit: No Status: Chronic Subjective Interval history: Pt seen and examined s/p LHC with medical management recommended and HD Objective - Vital Signs Vital signs: Vital Signs Temp Pulse Resp BP Pulse Ox 05/22/19 07:16 97.9 F 83 18 146/81 95 05/22/19 03:49 98 F 82 19 118/66 96 05/22/19 00:09 97.9 F 61 19 98/64 95 05/21/19 20:09 97.6 F 65 19 105/61 95 05/21/19 19:29 98.7 F 18 117/69 05/21/19 19:05 107/56 05/21/19 18:50 101/55 05/21/19 18:35 99/56 05/21/19 18:20 100/54 05/21/19 18:05 103/54 05/21/19 17:50 98/52 05/21/19 17:35 102/54 05/21/19 17:20 99/62 05/21/19 17:05 114/62 05/21/19 16:50 110/60 05/21/19 16:35 116/56 05/21/19 16:20 124/62 05/21/19 16:05 112/64 05/21/19 15:50 118/68 05/21/19 15:35 98.1 F 16 110/65 Intake and Output 05/21/19 05/22/19 05/22/19 23:59 07:59 15:59 Intake Total 240 / 240 Output Total 3600 / 3800 250 / 450 200 / 450 Balance -3600 / -3191 -250 / -210 40 / -210 Intake: Oral 240 / 240 Output: Urine 0 / 200 200 / 200 Total Dialysis (HD) Output 3600 / 3600 Catheter 250 / 250 Other: Meal Breakfast Percent of Meal Consumed 100% # Voids 1 Weight 96 kg Blood Glucose* 183 238 Hemodialysis Net Fluid Removed 3000 (mL) Patient Weight 05/22/19 23:59 Weight 96 kg - Lab 05/22/19 01:50 05/22/19 01:50 Most recent lab results 05/22/19 01:50 Calcium 8.3 L Magnesium 1.7 Consult Discharge Plan - Plan Referrals: [facility] [Primary Care Provider] -
--- NOTE | 2019-05-22 11:52 | Cardiology Progress Note ---
Date of Encounter: 05/22/19 Time of Encounter: 09:45 Assessment and Plan (1) NSTEMI (non-ST elevated myocardial infarction) Current Visit: Yes Status: Acute Per cardiology: -Admitted with chest pain, troponin elevated. -[facility] 05/2018 The LMCA has a patent stent. LAD has 100% ostial proximal disease, 40% stenosis in the Mid Circumflex. Distal LCx 60% stenosis. RCA has 100% proximal stenosis. An Intervetnion was performed with final stenosis. 60% distal to the stent, unable to pass balloon past the recently implanted stent. The radi al arterial graft to the 2nd Diagonal has a 99% stenosis in the proximal anastomosis at 350 degree angulation sp successful 2.25 x 8 Synergy ABBI. Marcial to Lad is known to be patent from recent angiography. -[facility] 04/2019 with balloon angiplasty to ISR of LM stent, and balloon angiolpasty to radial artery graft. -S/pLHC 05/21/19 with PTCA to previous left main stent. -TTE 03/2019 with LVEF 50%, no wall motion abnormalities noted. -Repeat TTE with LVEF 50%, no wall motion abnormalities noted. -On asa, statin, plavix, BB, imdur. Educated on dual anti-platelet therapy uninterrupted for at least 30 days, however due recommend retirement use with severe CAD, states understanding. -Right groin access site without ecchymosis, or hematoma. Right groin access site management education reviewed with patient. -pateint denies chest pain. -Continue current medical therapy, including dual anti-platelets. -Cardiology wull sign off, will arrange outpatient follow up. (2) Diastolic CHF, acute on chronic Current Visit: No Status: Acute Per cardiology: -Chest x-ray with cardiomegaly and increased pulmonary edema. -Reports chronic orthopnea. -ESRD on HD, however states does make some urine. On po lasix. -Did not complete dialysis today due to chest pain. -Strict i/os, fluid restriction, daily weights. -Appreciate nephrology recs regarding volume management. Discussion w patient/family: The assessment and plan as outlined above was discussed with the patient who expressed understanding and agreement. All questions were answered. Thank you for involving us in the care of your patient. Please call with any questions. Discussed and reviewed with Dr.Zysek Subjective Principal diagnosis: NSTEMI Interval history: Patient is s/p LHC yesterday with PTCA to previous LM stent. Patient denies current chest pain. Objective Vital Signs, Last 4 Hours Temp Pulse Resp BP Pulse Ox 05/22/19 11:22 97.7 F 77 18 105/47 98 General: Conversant, No Apparent Distress HEENT: Atraumatic, Normocephaly, Mucus Membranes Moist Neck: No JVD, Normal carotid pulses Cardiac: Reg Rate and Rhythm, Normal S1 and S2, No Murmur Lungs: Normal Breath Sounds, No Wheeze, Rales, Rhonchi Neuro: Alert and responsive, No focal deficits noted Abdomen: Soft, Non-Tender Skin: No rashes noted on visualized skin, Other (Right groin access site without ecchymosis, or hematoma. ) Musculoskeletal: No Chest Wall Tenderness Extremities: No Clubbing, No Cyanosis, No Edema, Normal Pulses Results 05/22/19 01:50 05/22/19 01:50 Lab Results Active Medications Acetaminophen (Tylenol) 650 mg PO Q6HR PRN PRN Reason: Mild Pain/Fever Stop: 11/20/19 08:31 Albuterol/Ipratropium (Duoneb) 3 ml IH [id number] PRN PRN Reason: Shortness Of Breath/Wheezing Stop: 11/20/19 08:31 Aspirin (Aspirin) 81 mg PO DAILY [facility] Stop: 11/21/19 09:01 Last Admin: 05/22/19 08:24 Dose: 81 mg Documented by: Atorvastatin Calcium (Lipitor) 80 mg PO HS [facility] Stop: 11/20/19 21:01 Last Admin: 05/21/19 20:18 Dose: 80 mg Documented by: Buspirone HCl (Buspar) 5 mg PO TID [facility] Stop: 11/20/19 09:01 Last Admin: 05/22/19 08:27 Dose: 5 mg Documented by: Calcium Acetate (Phos-Lo) 1,334 mg PO TIDWM [facility] Stop: 11/20/19 12:01 Last Admin: 05/22/19 08:24 Dose: 1,334 mg Documented by: Clopidogrel Bisulfate (Plavix) 75 mg PO DAILY [facility] Stop: 11/20/19 09:01 Last Admin: 05/22/19 08:24 Dose: 75 mg Documented by: Dextrose/Water (Dextrose 50% (Syg)) 25 ml IVP AD PRN PRN Reason: Hypoglycemia Stop: 11/20/19 08:33 Fluticasone Propionate (Flonase) 50 mcg NS DAILY PRN; Protocol PRN Reason: Congestion Stop: 11/20/19 08:31 Furosemide (Lasix) 60 mg PO BIDDIURETIC ЕЛЕНА Stop: 11/20/19 09:01 Last Admin: 05/22/19 08:23 Dose: 60 mg Documented by: Gabapentin (Neurontin) 300 mg PO DAILY ЕЛЕНА Stop: 11/20/19 09:01 Last Admin: 05/22/19 08:24 Dose: 300 mg Documented by: Glucagon (Glucagen) 1 mg IM ONCE PRN PRN Reason: Hypoglycemia Stop: 11/20/19 08:33 Glucose (Gluctose) 15 gm PO ONCE PRN PRN Reason: Hypoglycemia Stop: 11/20/19 08:33 Glucose (Gluctose) 30 gm PO ONCE PRN PRN Reason: Hypoglycemia Stop: 11/20/19 08:33 Heparin Sodium (Porcine) (Heparin) 3,000 unit IV ONCE PRN PRN Reason: heparin load Dextrose (Dextrose 5%) 1,000 mls @ 100 mls/hr IVC .Q10H PRN PRN Reason: HYPOGLYCEMIA Stop: 11/20/19 08:33 Sodium Chloride (0.9 % Sodium Chloride) 250 mls @ 937.5 mls/hr IVC .Q16M PRN PRN Reason: Hypotension Stop: 11/20/19 12:16 Insulin Detemir (Levemir) 60 unit SQ BID [facility] Stop: 11/20/19 21:01 Last Admin: 05/22/19 08:23 Dose: 60 unit Documented by: Insulin Human Lispro (Humalog) 0 units SQ HS [facility]; Protocol Stop: 11/20/19 21:01 Last Admin: 05/21/19 20:17 Dose: Not Given Documented by: Insulin Human Lispro (Humalog) 0 units SQ TIDAC [facility]; Protocol Stop: 11/20/19 16:31 Last Admin: 05/22/19 08:27 Dose: 10 units Documented by: Isosorbide Mononitrate (Imdur) 120 mg PO DAILY [facility] Stop: 11/21/19 09:01 Last Admin: 05/22/19 08:23 Dose: 120 mg Documented by: Levothyroxine Sodium (Synthroid) 25 mcg PO 0630 [facility] Stop: 11/20/19 09:01 Last Admin: 05/22/19 06:23 Dose: 25 mcg Documented by: Loratadine (Claritin) 10 mg PO DAILY [facility] Stop: 11/20/19 09:01 Last Admin: 05/22/19 08:24 Dose: 10 mg Documented by: Metoprolol Tartrate (Lopressor) 25 mg PO BID [facility] Stop: 11/20/19 21:01 Last Admin: 05/22/19 08:24 Dose: 25 mg Documented by: Naloxone HCl (Narcan) 0.4 mg IVP Q2MPRN PRN PRN Reason: SEE COMMENTS Stop: 11/20/19 08:25 Omeprazole (Prilosec) 20 mg PO 729 [facility] Stop: 11/20/19 09:01 Last Admin: 05/22/19 08:25 Dose: 20 mg Documented by: Ondansetron HCl (Zofran) 4 mg IVP Q8HR PRN PRN Reason: Nausea And Vomiting Stop: 11/20/19 08:25 Oxycodone HCl (Roxicodone) 10 mg PO Q6HR PRN; Protocol PRN Reason: Severe Pain Stop: 11/20/19 08:31 Paroxetine HCl (Paxil) 30 mg PO [facility]; Protocol Stop: 11/20/19 09:01 Last Admin: 05/22/19 08:24 Dose: 30 mg Documented by: Laboratory Tests 05/22/19 01:50 Hgb 8.9 L - Imaging and Cardiology Chest Xray: report reviewed Echo: report reviewed Cardiac cath: report reviewed - EKG Interpretation EKG results cardiology: other (Telemetry reviewed with average HR previous 12 hours noted to be 73, SR. PVCs, PACs noted.) Consult Discharge Plan - Plan [facility]errals: [facility] [Primary Care Provider] -
--- NOTE | 2019-05-22 13:11 | Internal Med Progress Note ---
Hospitalist Progress Note - Encounter Date of Encounter: 05/22/19 Time of Encounter: 13:06 - Subjective Interval History: Patient is status post left heart catheter yesterday with stent to the left main. Denies chest pain right now. Patient with labile blood sugars since admission. Had he describes as a hypoglycemic episode 89 which he was symptomatic from. - Exam Vitals: Temp Pulse Resp BP Pulse Ox 97.7 F 77 18 105/47 98 05/22/19 11:22 05/22/19 11:22 05/22/19 11:22 05/22/19 11:22 05/22/19 11:22 Exam: General: Ill-appearing and in no acute distress HEENT: No erythema of posterior pharynx. No exudates. Lymphatics: No mandibular or cervical lymphadenopathy Cardiovascular: RRR. No murmurs. No chest wall tenderness. Lungs: Clear to auscelltation bilaterally. Regular chest rise. Abdomen: Non-tender. No rebound or gaurding. Nl bowel sounds. Extremities: No edema. 2+ pulses radial and pedal pulses Skin: No rahses, abrasions, or contusions. Nl cap refill. Psych: Nl attention. A&Ox3 Neuro: collar cutter II-XII intact. 5/5 strength. Sensation to light touch and pinprick intact. - Assessment and Plan (1) NSTEMI (non-ST elevated myocardial infarction) Current Visit: Yes Status: Acute Assessment and Plan: Patient with history of multivessel CAD presents with chest pain in the setting of stable vitals, unremarkable physical exam, and troponin elevation to 0.07 without EKG changes. -Status post cardiac catheterization yesterday with PTCA to the left main -No chest pain this morning and otherwise stable -Cardiology recommending continuation of dual antiplatelet therapy likely indefinitely PLAN: - ASA plus Plavix - High-dose Statin therapy - Anti-anginal therapy: Metoprolol 25mg bid, Imdur 120mg qd, will titrate up as necessary if continued chest pain develops When necessary oxycodone and nitroglycerin (2) Acute exacerbation of congestive heart failure Current Visit: Yes Status: Acute Assessment and Plan: History of heart failure and preserved ejection fraction. Presented hypervolemic. Nephrology is following for volume removal with dialysis and by mouth Lasix (3) Diabetes mellitus Current Visit: No Status: Chronic Assessment and Plan: Hypoglycemic episode this morning. Suspect this is from hours of nothing by mouth yesterday. Continue home insulin dosing today (4) Anemia Current Visit: No Status: Chronic Assessment and Plan: chronic, at baseline (5) ESRD (end stage renal disease) on dialysis Current Visit: No Status: Chronic Assessment and Plan: HD per nephro (6) DVT prophylaxis Current Visit: Yes Status: Acute Assessment and Plan: Heparin - Time Spent with Patient Total time spent is greater than 50% in coordination of care (as documented) at patient's floor/unit and/or counseling patient: Greater than 35 minutes Plan of Care Discussed with: patient Internal Medicine: Result - Labs CBC & Chem 7: 05/22/19 01:50 05/22/19 01:50 Labs: Short CBC 05/22/19 Range/Units 01:50 WBC 3.0 L (4.3-11.1) K/mcL Hgb 8.9 L (12.9-16.9) g/dL Hct 26.2 L (37.5-50.1) % Plt Count 67 L (140-400) K/mcL Neutrophils # 2.0 (1.6-8.9) K/mcL BMP 05/22/19 01:50 Sodium 132 L Potassium 5.2 H Chloride 98 Carbon Dioxide 27 BUN 22 Creatinine 3.14 H Glucose 333 H Calcium 8.3 L - ABG Interpretation ABG results: PT/INR, D-dimer PT 11.6 Seconds (9.4-12.1) 05/21/19 08:26 Consult Discharge Plan - Plan Referrals: [facility] [Primary Care Provider] - (2) Acute exacerbation of congestive heart failure Qualifiers: Qualified Code(s): I50.33 - Acute on chronic diastolic (congestive) heart failure (3) Diabetes mellitus Qualifiers: Diabetes mellitus type: type 2 Diabetes mellitus prison insulin use: with superintendent container terminal use Diabetes mellitus complication status: with kidney complications Diabetes mellitus complication detail: with chronic kidney disease Chronic kidney disease stage: on chronic dialysis Qualified Code(s): E11.22 - Type 2 diabetes mellitus with diabetic chronic kidney disease; N18.6 - End stage renal disease; Z79.4 - terminal system operator (current) use of insulin; Z99.2 - Dependence on renal dialysis (4) Anemia Qualifiers: Anemia type: due to chronic kidney disease Chronic kidney disease stage: on chronic dialysis Qualified Code(s): N18.6 - End stage renal disease; D63.1 - Anemia in chronic kidney disease; Z99.2 - Dependence on renal dialysis
[2019-05-23 02:27] LABS: Potassium 4.3 mEq/L (3.5-5.1)
[2019-05-23] MEDS: Levothyroxine 25 MCG TABLET PO SCH (05:55)
[2019-05-23 07:56] VITALS: BP 147/73
[2019-05-23] MEDS: Loratadine 10 MG TABLET PO SCH (08:13)
[2019-05-23] MEDS: Furosemide 20 MG TABLET PO SCH (08:13)
[2019-05-23] MEDS: Isosorbide MONOnitrate (24 HR) 60 MG TAB.ER.24H PO SCH (08:13)
[2019-05-23] MEDS: Calcium Acetate 667 MG CAPSULE PO SCH (08:13)
[2019-05-23] MEDS: Insulin DETEMIR 100 UNIT/ML X5UNITS SQ SCH (08:13)
[2019-05-23] MEDS: Gabapentin 300 MG CAPSULE PO SCH (08:13)
[2019-05-23] MEDS: Aspirin 81 MG TAB.CHEW PO SCH (08:14)
[2019-05-23] MEDS: Insulin LISPRO 300 UNITS/3 ML VIAL SQ SCH (08:14)
--- NOTE | 2019-05-23 09:17 | Discharge Summary ---
Orders not resulted at time of discharge: Pending orders 05/21/19 06:25 ECG 12 lead ECG [ECG] Stat 05/21/19 07:17 ECG 12 lead ECG [ECG] Stat 05/21/19 14:58 ECG 12 lead ECG [ECG] Stat 05/22/19 06:00 ECG 12 lead ECG [ECG] AM 0600 Date of Encounter: 05/23/19 Time of Encounter: 09:14 - Discharge Diagnosis (1) NSTEMI (non-ST elevated myocardial infarction) Priority: Primary Status: Acute (2) Acute exacerbation of congestive heart failure Priority: Secondary Status: Acute Qualifiers: Qualified Code(s): I50.33 - Acute on chronic diastolic (congestive) heart failure (3) Diabetes mellitus Priority: Secondary Status: Chronic Qualifiers: Diabetes mellitus type: type 2 Diabetes mellitus long term care administrator insulin use: with halfway use Diabetes mellitus complication status: with kidney complications Diabetes mellitus complication detail: with chronic kidney disease Chronic kidney disease stage: on chronic dialysis Qualified Code(s): E11.22 - Type 2 diabetes mellitus with diabetic chronic kidney disease; N18.6 - End stage renal disease; Z79.4 - detention (current) use of insulin; Z99.2 - Dependence on renal dialysis (4) Anemia Priority: Secondary Status: Chronic Qualifiers: Anemia type: due to chronic kidney disease Chronic kidney disease stage: on chronic dialysis Qualified Code(s): N18.6 - End stage renal disease; D63.1 - Anemia in chronic kidney disease; Z99.2 - Dependence on renal dialysis (5) ESRD (end stage renal disease) on dialysis Priority: Secondary Status: Chronic Hospital course: Mr. Velarde is a 64 year old male with history of multivessel CAD presented with chest pain in the setting of troponin and elevation to 0.07 and taken to the catheter lab by cardiology and found to have severe disease of the left main status post PTCA with resolution of chest pain thereafter. Patient's was already on dual antiplatelet therapy due to recent past stents and this was continued for discharge as well as his antianginal therapy. Patient will follow-up closely with cardiology and his primary care provider. Discharge discussed with: patient - Time Spent with Patient Total time spent providing and/or coordinating discharge services: 35 mintues - Discharge Medications Prescriptions: Continued Calcium Acetate [Phos-LO] 1,334 mg PO TIDWM Ranitidine HCl [Heartburn Relief] 150 mg PO DAILY Pantoprazole Sodium [Protonix] 40 mg PO DAILY Insulin ASPART [NovoLOG] 45 unit SQ BIDWM Clopidogrel [Plavix] 75 mg PO DAILY #30 tablet Insulin Glargine,Hum.rec.anlog [Lantus Solostar] 90 unit SQ BID OxyCODONE Immed Rel [Roxicodone 5 MG] 10 mg PO Q6HR PRN PRN Reason: Pain Metoprolol [Lopressor] 12.5 mg PO BID tablet Atorvastatin Calcium [Lipitor] 40 mg PO HS Buspirone HCl [Buspar] 5 mg PO TID Cetirizine HCl [24Hour Allergy] 5 mg PO DAILY Furosemide [Lasix] 60 mg PO BID Gabapentin [Neurontin] 300 mg PO DAILY Levothyroxine [Synthroid] 25 mcg PO QAM Melatonin/Pyridoxine HCl (B6) [Melatonin 3 mg Tablet] 3 mg PO HS PRN PRN Reason: Sleep Paroxetine [Paxil] 30 mg PO QAM Ipratropium/Albuterol Neb [Duoneb] 3 ml IH [id number] PRN #160 inhsol PRN Reason: Shortness Of Breath/Wheezing Acetaminophen [Tylenol] 650 mg PO Q6HR PRN tablet PRN Reason: Mild Pain/Fever Aspirin Enteric Coated [Aspirin EC] 81 mg PO DAILY tablet. Fluticasone Propionate Nasal [Flonase] 50 mcg NS DAILY PRN PRN Reason: Congestion Niacin (24 HR) [Niaspan] 500 mg PO DAILY Isosorbide MONOnitrate (24 HR) [Imdur] 60 mg PO DAILY 30 Days #30 tab.er.24h No Action Renal Vitamin [Renal Caps Softgel] 1 mg PO DAILY Home Medications: Calcium Acetate [Phos-LO] 1,334 mg PO TIDWM 10/04/16 [History] Pantoprazole Sodium [Protonix] 40 mg PO DAILY 10/04/16 [History] Ranitidine HCl [Heartburn Relief] 150 mg PO DAILY 10/04/16 [History] Insulin ASPART [NovoLOG] 45 unit SQ BIDWM 04/25/17 [History] Clopidogrel [Plavix] 75 mg PO DAILY #30 tablet 04/28/17 [Rx] Insulin Glargine,Hum.rec.anlog [Lantus Solostar] 90 unit SQ BID 01/29/18 [History] Renal Vitamin [Renal Caps Softgel] 1 mg PO DAILY 01/29/18 [History] OxyCODONE Immed Rel [Roxicodone 5 MG] 10 mg PO Q6HR PRN 04/27/18 [History] Metoprolol [Lopressor] 12.5 mg PO BID tablet 04/29/18 [Rx] Atorvastatin Calcium [Lipitor] 40 mg PO HS 12/10/18 [History] Buspirone HCl [Buspar] 5 mg PO TID 12/10/18 [History] Cetirizine HCl [24Hour Allergy] 5 mg PO DAILY 12/10/18 [History] Furosemide [Lasix] 60 mg PO BID 12/10/18 [History] Gabapentin [Neurontin] 300 mg PO DAILY 12/10/18 [History] Levothyroxine [Synthroid] 25 mcg PO QAM 12/10/18 [History] Melatonin/Pyridoxine HCl (B6) [Melatonin 3 mg Tablet] 3 mg PO HS PRN 12/10/18 [History] Paroxetine [Paxil] 30 mg PO QAM 12/10/18 [History] Acetaminophen [Tylenol] 650 mg PO Q6HR PRN tablet 12/14/18 [Rx] Aspirin Enteric Coated [Aspirin EC] 81 mg PO DAILY tablet. 12/14/18 [Rx] Ipratropium/Albuterol Neb [Duoneb] 3 ml IH [id number] PRN #160 inhsol 12/14/18 [Rx] Fluticasone Propionate Nasal [Flonase] 50 mcg NS DAILY PRN 04/26/19 [History] Niacin (24 HR) [Niaspan] 500 mg PO DAILY 04/28/19 [History] Isosorbide MONOnitrate (24 HR) [Imdur] 60 mg PO DAILY 30 Days #30 tab.er.24h 04/30/19 [Rx] Allergies/Adverse Reactions: Allergy/AdvReac Type Severity Reaction Status Date / Time codeine Allergy Unknown Hives Verified 05/21/19 06:33 methadone [Methadone] Allergy Unknown Rash Verified 05/21/19 06:33 Penicillins [PCN] Allergy Unknown Rash Verified 05/21/19 06:33 promethazine [From Phenergan] Allergy Unknown Hives Verified 05/21/19 06:33 trazodone Allergy Unknown Itching Verified 05/21/19 06:33 Date of admission: 05/21/19 08:43 [facility] care physician: [facility] Consults: 05/21/19 07:20 Consult to Nephrology [CONS] Stat Consulting Provider: Kidney Poonam/MILKA/TANK/RICKY Reason for Consult: esrd Call Completed: No 05/21/19 08:06 Consult to Cardiology [CONS] Stat Comment: Consulting Provider: Cardiology Poonam Reason for Consult: chest pain, elevated troponin Call Completed: Yes 05/21/19 12:15 Consult to Dialysis [CONS] ONCE 05/21/19 12:22 Consult to Cardiac Rehabilitation-Phase1 [CONS] Routine Comment: Reason for Consult: NSTEMI Call Completed: No 05/21/19 14:58 Consult to Cardiac Rehabilitation-Phase1 [CONS] Routine Comment: Reason for Consult: post op PCI Call Completed: Yes - Constitutional Vitals: Temp Pulse Resp BP Pulse Ox 98.2 F 84 18 147/73 96 05/23/19 07:54 05/23/19 07:54 05/23/19 07:54 05/23/19 07:54 05/23/19 07:54 Exam: General: Ill-appearing and in no acute distress HEENT: No erythema of posterior pharynx. No exudates. Lymphatics: No mandibular or cervical lymphadenopathy Cardiovascular: RRR. No murmurs. No chest wall tenderness. Lungs: Clear to auscelltation bilaterally. Regular chest rise. Abdomen: Non-tender. No rebound or gaurding. Nl bowel sounds. Extremities: No edema. 2+ pulses radial and pedal pulses Skin: No rahses, abrasions, or contusions. Nl cap refill. Psych: Nl attention. A&Ox3 Neuro: coil winder strap II-XII intact. 5/5 strength. Sensation to light touch and pinprick intact. - Patient Status Disposition: Home, Self-Care Functional capacity at discharge: independent ambulation Overall status at discharge: patient is back to baseline - Discharge Instructions Follow Up With: [facility] [Primary Care Provider] - - Diet and Activity Activity: increase activity as tolerated Diet: diabetic diet, low salt diet
--- NOTE | 2019-05-23 09:19 | Electrocardiograph Report ---
[facility] Test Date: 2019-05-21 Pat Name: Orlando Velarde Department: EXAM17 Room: 2A51 Gender: M Department [employer]: : 1955 Requested By: Erin Calhoun Order Number: [id number] Reading MD: Akash Mason Measurements Intervals [place] Rate: 87 P: -8 MS: 204 QRS: 90 QRSD: 106 T: 120 QT: 394 QTc: 474 Interpretive Statements Sinus rhythm Borderline prolonged MS interval Borderline right axis deviation Left ventricular hypertrophy Nonspecific T abnormalities, lateral leads Anterior ST elevation, probably due to LVH Electronically Signed On 05-23-2019 9:18:13 EDT by Akash Mason
--- NOTE | 2019-05-23 09:19 | Electrocardiograph Report ---
[facility] Test Date: 2019-05-21 Pat Name: Orlando Velarde Department: EXAM17 Room: 2A51 Gender: M Social Media Intern: : 1955 Requested By: Birgit Lawler Order Number: [id number] Reading MD: Akash Mason Measurements Intervals [place] Rate: 85 P: 69 FL: 187 QRS: 81 QRSD: 118 T: 112 QT: 404 QTc: 481 Interpretive Statements Sinus rhythm Left ventricular hypertrophy Nonspecific T abnormalities, lateral leads ST elev, probable normal early repol pattern Borderline prolonged QT interval Electronically Signed On 05-23-2019 9:17:52 EDT by Akash Mason
--- NOTE | 2019-05-24 22:16 | Electrocardiograph Report ---
[place] [id number] Test Date: 2019-05-22 Pat Name: Orlando Velarde Department: 112 Room: 2A Gender: M Town Administrator: : 1955 Requested By: James Castro Order Number: [id number] Reading MD: Kb Pop Measurements Intervals [place] Rate: 86 P: -75 IN: 175 QRS: 62 QRSD: 111 T: 109 QT: 419 QTc: 462 Interpretive Statements SINUS RHYTHM MODERATE INTRAVENTRICULAR CONDUCTION DELAY ST T-WAVE ABNORMALITY, CONSIDER LATERAL ISCHEMIA Electronically Signed On 05-24-2019 22:14:47 EDT by Kb Pop
== END 2019-05-23 13:19 | disposition home or self-care (01) | DRG 250 ==
LOC: EMEROOARM 06:17 → 2ANU 06:17 → SUATTDRO 08:43 → OBSVTOIN 08:43 → 2ANU 09:15
PROVIDERS: ADMIT Internal Medicine; ATTEND Internal Medicine

== ENCOUNTER 2019-06-24 22:26 | Observation (INO) ==
[2019-06-25 00:51] LABS: Basophils % 0.2 %; Red Cell Distribution Width 13.4 % (11.5-14.5)
[2019-06-25 00:53] LABS: Hematocrit 26.8 % (37.5-50.1); Immature Granulocytes % 0.5 % (0-4); Immature Platelets 4.2 % (1.1-6.1); Lymphocytes # 0.8 K/mcL (0.6-4.6); Lymphocytes % 19.5 %; Mean Corpuscular HGB Conc 33.6 g/dL (31.6-35.5); Mean Corpuscular Hemoglobin 31.4 pg (28.0-33.3); Mean Corpuscular Volume 93.4 fL (83.0-100.0); Mean Platelet Volume 11.3 fL (9.4-12.4); Monocytes # 0.4 K/mcL (0.0-1.3); Monocytes % 9.1 %; Red Blood Count 2.87 M/mcL (4.19-5.50); Segmented Neutrophils % 69.7 %; White Blood Count 4.1 K/mcL (4.3-11.1)
[2019-06-25 00:56] LABS: Neutrophils # 2.9 K/mcL (1.6-8.9); Platelet Count 75 K/mcL (140-400)
[2019-06-25 01:15] LABS: Albumin 4.5 g/dL (3.5-5.7); Albumin/Globulin Ratio 1.4 (1.1-2.2); Bilirubin,Direct 0.2 mg/dL (0.0-0.2); Bilirubin,Indirect 0.4 mg/dL (0.0-1.2); Bilirubin,Total 0.6 mg/dL (0.3-1.0); Calcium 9.5 mg/dL (8.6-10.3); Globulin 3.3 g/dL (2.4-3.5); Potassium 4.4 mEq/L (3.5-5.1); Total Protein 7.8 g/dL (6.4-8.9)
[2019-06-25] MEDS ORDERED: GI Cocktail 40 ML EACH PO ONE (02:39)
[2019-06-25] MEDS ORDERED: Naloxone 0.4 MG/ML INJ IVP PRN (04:41)
[2019-06-25] MEDS: *HR* Heparin 5,000 UNIT/ML VIAL SQ SCH ×2 (06:24→15:33)
[2019-06-25] MEDS ORDERED: 0.9 % Sodium Chloride 1,000 ML IVC SCH ×2 (06:30→09:25)
[2019-06-25] MEDS ORDERED: 0.9 % Sodium Chloride 250 ML IVC PRN (07:31)
[2019-06-25] MEDS ORDERED: 0.9 % Sodium Chloride 1,000 ML PRIME SCH (07:45)
[2019-06-25 09:08] LABS: Hepatitis B Surface Antibody < 3.10 mIU/mL
[2019-06-25 09:18] LABS: Hepatitis B Surface Antigen Nonreactive (Nonreactive)
[2019-06-25] MEDS: Aspirin Enteric Coated 81 MG Tablet PO SCH (15:33)
[2019-06-25] MEDS: *HR* OxyCODONE Immed Rel 5 MG TABLET PO PRN (18:56)
[2019-06-25] MEDS ORDERED: Dextrose Gel 15 GM/37.5 ML TUBE PO PRN ×2 (19:45)
[2019-06-25] MEDS ORDERED: *HR* Dextrose 50 % in Water (Syg) 50 ML SYRINGE IVP PRN (19:45)
[2019-06-25] MEDS ORDERED: D5% in Water 1,000 ML IVC PRN (19:45)
[2019-06-25] MEDS: Insulin LISPRO 300 UNITS/3 ML VIAL SQ SCH ×2 (20:50→20:54)
[2019-06-25] MEDS ORDERED: NON-FORMULARY MEDICATION 1 EACH EACH (Atorvastatin Calcium [Lipitor] 40 MG) PO SCH (21:00)
[2019-06-25 21:16] LABS: Estimated Average Glucose 240 mg/dl
[2019-06-26 04:00] LABS: Hemoglobin 9.8 g/dL (12.9-16.9); Lymphocytes % 17.9 %
[2019-06-26 04:02] LABS: Basophils % 0.6 %; Eosinophils % 0.9 %; Hematocrit 28.9 % (37.5-50.1); Immature Granulocytes % 0.3 % (0-4); Immature Platelets 5.4 % (1.1-6.1); Lymphocytes # 0.6 K/mcL (0.6-4.6); Mean Corpuscular HGB Conc 33.9 g/dL (31.6-35.5); Mean Corpuscular Hemoglobin 31.7 pg (28.0-33.3); Mean Corpuscular Volume 93.5 fL (83.0-100.0); Mean Platelet Volume 11.7 fL (9.4-12.4); Monocytes # 0.3 K/mcL (0.0-1.3); Monocytes % 10.3 %; Neutrophils # 2.3 K/mcL (1.6-8.9); Red Blood Count 3.09 M/mcL (4.19-5.50); Red Cell Distribution Width 13.4 % (11.5-14.5); White Blood Count 3.3 K/mcL (4.3-11.1)
[2019-06-26 04:03] LABS: Platelet Count 79 K/mcL (140-400)
[2019-06-26 04:29] LABS: Calcium 9.1 mg/dL (8.6-10.3); Potassium 4.5 mEq/L (3.5-5.1); Troponin I 0.36 ng/mL (< 0.04)
[2019-06-26] MEDS: *HR* Heparin 5,000 UNIT/ML VIAL SQ SCH ×2 (05:35→17:35)
[2019-06-26] MEDS: Levothyroxine 25 MCG TABLET PO SCH (05:47)
[2019-06-26] MEDS ORDERED: Acetaminophen IV 500 MG/50 ML INFUS..BTL IVPB ONE (06:21)
[2019-06-26] MEDS ORDERED: Ondansetron 4 MG/2 ML VIAL IVP ONE (06:21)
[2019-06-26 07:18] LABS: Campylobacter by PCR Not detected (Not detect)
[2019-06-26 07:19] LABS: Adenovirus F 40/41 PCR Not detected (Not detect); Astrovirus PCR Not detected (Not detect); C.difficile Toxin A/B Gene PCR Not detected (Not detect); Cryptosporidium by PCR Not detected (Not detect); Cyclospora cayetanensis PCR Not detected (Not detect); E. coli O157 by PCR Not detected (Not detect); Entamoeba histolytica PCR Not detected (Not detect); Enteroaggregative E.coli(EAEC) Not detected (Not detect); Enteropathogenic E.coli(EPEC) Not detected (Not detect); Enterotoxigenic E.coli (ETEC) Not detected (Not detect); Giardia lamblia PCR Not detected (Not detect); Norovirus GI/GII PCR Not detected (Not detect); Plesiomonas shigelloides PCR Not detected (Not detect); Rotavirus A PCR Not detected (Not detect); Salmonella PCR Not detected (Not detect); Sapovirus PCR Not detected (Not detect); Shig/EnteroinvasiveE coli EIEC Not detected (Not detect); Shigalike tox-prod E coli STEC Not detected (Not detect); Vibrio PCR Not detected (Not detect); Vibrio cholerae PCR Not detected (Not detect); Yersinia enterocolitica PCR Not detected (Not detect)
[2019-06-26] MEDS: Insulin LISPRO 300 UNITS/3 ML VIAL SQ SCH ×4 (08:54→21:16)
[2019-06-26] MEDS: PARoxetine 30 MG TABLET PO SCH (08:57)
[2019-06-26] MEDS: Aspirin Enteric Coated 81 MG Tablet PO SCH (08:57)
[2019-06-26] MEDS: Renal Vitamin 1 CAP CAPSULE PO SCH (08:57)
[2019-06-26] MEDS: Ondansetron 4 MG/2 ML VIAL IVP PRN (11:49)
[2019-06-26] MEDS: *HR* OxyCODONE Immed Rel 5 MG TABLET PO PRN (15:35)
[2019-06-26] MEDS: Gabapentin 300 MG CAPSULE PO SCH (21:13)
[2019-06-27] MEDS: Ondansetron 4 MG/2 ML VIAL IVP PRN ×3 (00:51→23:47)
[2019-06-27 01:11] LABS: Bilirubin,Urine Negative (Negative); Blood,Urine Trace (Negative); Clarity,Urine Clear (Clear); Color,Urine Yellow (Yellow); Glucose,Urine (UA) 250 mg/dL (Normal); Ketones,Urine Negative (Negative); Leukocyte Esterase,Urine Negative (Negative); Nitrite,Urine Negative (Negative); PH,Urine 7.5 pH Units (5.0-8.0); Protein,Urine >=300 mg/dL (Neg-Trace); Specific Gravity,Urine 1.015 (1.010-1.025); Urobilinogen,Urine Normal (Normal)
[2019-06-27 01:13] LABS: Bacteria,Urine None Seen per hpf (None-Few); Hyaline Casts,Urine None Seen per lpf (None-Few); Squamous Epithelial Cell,Urine Many per lpf (None-Few); WBC,Urine 0-3 per hpf (0-3)
[2019-06-27 01:44] LABS: Hematocrit 28.2 % (37.5-50.1); Hemoglobin 9.7 g/dL (12.9-16.9)
[2019-06-27 02:02] LABS: Calcium 9.6 mg/dL (8.6-10.3); Potassium 4.6 mEq/L (3.5-5.1)
[2019-06-27] MEDS: Levothyroxine 25 MCG TABLET PO SCH (06:07)
[2019-06-27] MEDS: *HR* Heparin 5,000 UNIT/ML VIAL SQ SCH ×2 (06:07→17:21)
[2019-06-27] MEDS: Insulin LISPRO 300 UNITS/3 ML VIAL SQ SCH ×4 (07:56→21:19)
[2019-06-27] MEDS: PARoxetine 30 MG TABLET PO SCH (07:57)
[2019-06-27] MEDS: Aspirin Enteric Coated 81 MG Tablet PO SCH (07:57)
[2019-06-27] MEDS: Renal Vitamin 1 CAP CAPSULE PO SCH (07:57)
[2019-06-27] MEDS: *HR* OxyCODONE Immed Rel 5 MG TABLET PO PRN ×2 (08:00→21:30)
[2019-06-27] MEDS: Gabapentin 300 MG CAPSULE PO SCH (21:18)
[2019-06-28 04:43] LABS: Calcium 9.2 mg/dL (8.6-10.3); Potassium 4.9 mEq/L (3.5-5.1)
[2019-06-28] MEDS: Levothyroxine 25 MCG TABLET PO SCH (05:57)
[2019-06-28] MEDS: *HR* Heparin 5,000 UNIT/ML VIAL SQ SCH ×2 (05:57→17:06)
[2019-06-28] MEDS ORDERED: 0.9 % Sodium Chloride 250 ML IVC PRN (06:54)
[2019-06-28] MEDS: Renal Vitamin 1 CAP CAPSULE PO SCH (08:25)
[2019-06-28] MEDS: PARoxetine 30 MG TABLET PO SCH (08:25)
[2019-06-28] MEDS: Aspirin Enteric Coated 81 MG Tablet PO SCH (08:26)
[2019-06-28] MEDS: Insulin LISPRO 300 UNITS/3 ML VIAL SQ SCH ×4 (08:44→21:09)
[2019-06-28] MEDS: Calcium Acetate 667 MG CAPSULE PO SCH ×2 (11:44→17:07)
[2019-06-28] MEDS: Ondansetron 4 MG/2 ML VIAL IVP PRN (13:30)
[2019-06-28] MEDS ORDERED: 0.9 % Sodium Chloride 2,000 ML ONE (14:44)
[2019-06-28] MEDS ORDERED: Nitroglycerin 1,000 MCG/10 ML VIAL IV ONE (14:45)
[2019-06-28] MEDS ORDERED: Heparin 1,000 UNITS/500 mL 500 ML ONE (14:45)
[2019-06-28] MEDS ORDERED: ISOVUE-370 200 ML INFUS..BTL ONE (14:45)
[2019-06-28] MEDS ORDERED: *HR* Heparin 10,000 UNIT/10 ML VIAL ONE (14:45)
[2019-06-28] MEDS ORDERED: *HR* FentaNYL (PF) 100 MCG/2 ML VIAL ONE (15:36)
[2019-06-28] MEDS ORDERED: *HR* Midazolam HCl 2 MG/2 ML VIAL ONE ×2 (15:36→15:56)
[2019-06-28] MEDS: Ranolazine 500 MG TAB.ER.12H PO SCH (20:10)
[2019-06-28] MEDS: Gabapentin 300 MG CAPSULE PO SCH (20:11)
[2019-06-28] MEDS: *HR* OxyCODONE Immed Rel 5 MG TABLET PO PRN (20:30)
[2019-06-28] MEDS ORDERED: Insulin DETEMIR 100 UNIT/ML X5UNITS SQ SCH (21:00)
[2019-06-29] MEDS: Ondansetron 4 MG/2 ML VIAL IVP PRN ×2 (00:05→08:21)
[2019-06-29 02:55] LABS: Hematocrit 26.5 % (37.5-50.1); Mean Corpuscular Hemoglobin 31.7 pg (28.0-33.3); Red Cell Distribution Width 13.3 % (11.5-14.5)
[2019-06-29 02:57] LABS: Basophils % 0.5 %; Eosinophils % 0.5 %; Hemoglobin 9.1 g/dL (12.9-16.9); Immature Granulocytes % 0.5 % (0-4); Immature Platelets 6.1 % (1.1-6.1); Lymphocytes # 0.7 K/mcL (0.6-4.6); Lymphocytes % 17.7 %; Mean Corpuscular HGB Conc 34.3 g/dL (31.6-35.5); Mean Corpuscular Volume 92.3 fL (83.0-100.0); Mean Platelet Volume 12.1 fL (9.4-12.4); Monocytes # 0.4 K/mcL (0.0-1.3); Monocytes % 9.8 %; Neutrophils # 2.7 K/mcL (1.6-8.9); Red Blood Count 2.87 M/mcL (4.19-5.50); White Blood Count 3.8 K/mcL (4.3-11.1)
[2019-06-29 02:58] LABS: Calcium 9.7 mg/dL (8.6-10.3)
[2019-06-29 03:03] LABS: Platelet Count 79 K/mcL (140-400)
[2019-06-29 03:25] LABS: Platelet Estimate Decreased (Normal)
[2019-06-29] MEDS: *HR* OxyCODONE Immed Rel 5 MG TABLET PO PRN (03:25)
[2019-06-29] MEDS: *HR* Heparin 5,000 UNIT/ML VIAL SQ SCH ×2 (05:43→16:53)
[2019-06-29] MEDS: Levothyroxine 25 MCG TABLET PO SCH (05:43)
[2019-06-29] MEDS: Insulin LISPRO 300 UNITS/3 ML VIAL SQ SCH ×3 (08:09→15:58)
[2019-06-29] MEDS: PARoxetine 30 MG TABLET PO SCH (08:10)
[2019-06-29] MEDS: Renal Vitamin 1 CAP CAPSULE PO SCH (08:10)
[2019-06-29] MEDS: Calcium Acetate 667 MG CAPSULE PO SCH ×3 (08:10→16:55)
[2019-06-29] MEDS: Aspirin Enteric Coated 81 MG Tablet PO SCH (08:10)
[2019-06-29] MEDS: Ranolazine 500 MG TAB.ER.12H PO SCH (08:28)
[2019-06-29 17:14] VITALS: BP 102/65
[2019-06-30] MEDS ORDERED: Metoprolol XL (24 HR) Succ 25 MG TAB.ER.24H PO SCH (09:00)
== END 2019-06-29 17:36 | disposition home or self-care (01) ==
LOC: 2ANU 22:26 → EMEROOARM 22:26 → SUATTDRO 06-25 03:58 → 2ANU 06-25 04:57
PROVIDERS: ADMIT Internal Medicine; ATTEND Internal Medicine

== ENCOUNTER 2019-07-09 06:23 | Observation (INO) ==
[2019-07-09] MEDS ORDERED: Ondansetron 4 MG/2 ML VIAL IVP STA (07:40)
[2019-07-09 08:24] LABS: Red Cell Distribution Width 14.6 % (11.5-14.5)
[2019-07-09 08:26] LABS: Basophils % 0.2 %; Eosinophils % 0.9 %; Hematocrit 29.2 % (37.5-50.1); Hemoglobin 10.1 g/dL (12.9-16.9); Immature Granulocytes % 0.2 % (0-4); Immature Platelets 4.2 % (1.1-6.1); Lymphocytes # 0.5 K/mcL (0.6-4.6); Lymphocytes % 10.5 %; Mean Corpuscular HGB Conc 34.6 g/dL (31.6-35.5); Mean Corpuscular Hemoglobin 32.5 pg (28.0-33.3); Mean Corpuscular Volume 93.9 fL (83.0-100.0); Mean Platelet Volume 10.6 fL (9.4-12.4); Monocytes # 0.8 K/mcL (0.0-1.3); Monocytes % 17.7 %; Neutrophils # 3.2 K/mcL (1.6-8.9); Red Blood Count 3.11 M/mcL (4.19-5.50); Segmented Neutrophils % 70.5 %; White Blood Count 4.5 K/mcL (4.3-11.1)
[2019-07-09 08:29] LABS: Platelet Count 93 K/mcL (140-400)
[2019-07-09 08:38] LABS: INR 1.2; Prothrombin Time 13.3 Seconds (9.4-12.1)
[2019-07-09 08:40] LABS: Activated Partial Thrombo Time 33.8 Seconds (26.0-36.0)
[2019-07-09 08:45] LABS: Potassium 4.3 mEq/L (3.5-5.1)
[2019-07-09 08:55] LABS: Troponin I 1.38 ng/mL (< 0.04)
[2019-07-09] MEDS ORDERED: Aspirin 81 MG TAB.CHEW PO STA (09:05)
[2019-07-09] MEDS ORDERED: Ondansetron 4 MG/2 ML VIAL IVP ONE (09:45)
[2019-07-09] MEDS ORDERED: Naloxone 0.4 MG/ML INJ IVP PRN (10:46)
[2019-07-09] MEDS ORDERED: levoFLOXacin 750 MG TABLET PO ONE (11:43)
[2019-07-09] MEDS ORDERED: 0.9 % Sodium Chloride 250 ML IVC PRN (11:51)
[2019-07-09] MEDS ORDERED: 0.9 % Sodium Chloride 1,000 ML PRIME SCH (12:00)
[2019-07-09] MEDS ORDERED: *HR* Heparin 10,000 UNIT/10 ML VIAL IV PRN (12:06)
[2019-07-09] MEDS: Ondansetron 4 MG/2 ML VIAL IVP PRN (12:21)
[2019-07-09] MEDS: metroNIDAZOLE 500 MG TABLET PO SCH ×3 (14:32→20:37)
[2019-07-09] MEDS: Gabapentin 300 MG CAPSULE PO SCH (18:21)
[2019-07-09] MEDS: Calcium Acetate 667 MG CAPSULE PO SCH (18:22)
[2019-07-09] MEDS: *HR* OxyCODONE Immed Rel 5 MG TABLET PO PRN (18:22)
[2019-07-09] MEDS: Ranolazine 500 MG TAB.ER.12H PO SCH (20:38)
[2019-07-09] MEDS ORDERED: metroNIDAZOLE 500 MG TABLET PO SCH (21:00)
[2019-07-09] MEDS ORDERED: D5% in Water 1,000 ML IVC PRN (22:18)
[2019-07-09] MEDS ORDERED: Dextrose Gel 15 GM/37.5 ML TUBE PO PRN ×2 (22:18)
[2019-07-09] MEDS ORDERED: *HR* Dextrose 50 % in Water (Syg) 50 ML SYRINGE IVP PRN (22:18)
[2019-07-10] MEDS: *HR* OxyCODONE Immed Rel 5 MG TABLET PO PRN ×2 (00:41→06:49)
[2019-07-10] MEDS: Melatonin 3 MG TABLET PO PRN (00:41)
[2019-07-10] MEDS: Insulin LISPRO 300 UNITS/3 ML VIAL SQ SCH ×4 (00:42→17:17)
[2019-07-10] MEDS: Levothyroxine 25 MCG TABLET PO SCH (05:48)
[2019-07-10 06:21] LABS: Basophils % 0.2 %; Hemoglobin 9.1 g/dL (12.9-16.9)
[2019-07-10 06:22] LABS: Eosinophils # 0.1 K/mcL (0.0-0.6); Eosinophils % 2.6 %; Hematocrit 26.2 % (37.5-50.1); Immature Granulocytes % 1.4 % (0-4); Immature Platelets 5.5 % (1.1-6.1); Lymphocytes # 0.8 K/mcL (0.6-4.6); Lymphocytes % 18.2 %; Mean Corpuscular HGB Conc 34.7 g/dL (31.6-35.5); Mean Corpuscular Hemoglobin 32.2 pg (28.0-33.3); Mean Corpuscular Volume 92.6 fL (83.0-100.0); Mean Platelet Volume 11.4 fL (9.4-12.4); Monocytes # 1.1 K/mcL (0.0-1.3); Monocytes % 26.4 %; Red Blood Count 2.83 M/mcL (4.19-5.50); Red Cell Distribution Width 14.9 % (11.5-14.5); Segmented Neutrophils % 51.2 %; White Blood Count 4.2 K/mcL (4.3-11.1)
[2019-07-10 06:23] LABS: Neutrophils # 2.2 K/mcL (1.6-8.9); Platelet Count 74 K/mcL (140-400)
[2019-07-10 06:37] LABS: Calcium 9.3 mg/dL (8.6-10.3)
[2019-07-10 06:42] LABS: Anisocytosis 1+ (Not Present); Microcytosis Present (Not Present); Platelet Estimate Decreased (Normal)
[2019-07-10] MEDS: Gabapentin 300 MG CAPSULE PO SCH (07:49)
[2019-07-10] MEDS: Ondansetron 4 MG/2 ML VIAL IVP PRN ×2 (07:49→17:16)
[2019-07-10] MEDS: Ranolazine 500 MG TAB.ER.12H PO SCH ×2 (07:55→23:14)
[2019-07-10] MEDS: Aspirin Enteric Coated 81 MG Tablet PO SCH (07:55)
[2019-07-10] MEDS: Loratadine 10 MG TABLET PO SCH (07:55)
[2019-07-10] MEDS: Metoprolol XL (24 HR) Succ 25 MG TAB.ER.24H PO SCH ×2 (07:56→09:33)
[2019-07-10] MEDS: Calcium Acetate 667 MG CAPSULE PO SCH ×4 (07:56→17:17)
[2019-07-10] MEDS: Niacin (24 HR) 500 MG TAB.ER.24H PO SCH (07:56)
[2019-07-10] MEDS: Renal Vitamin 1 CAP CAPSULE PO SCH (07:56)
[2019-07-10] MEDS: metroNIDAZOLE 500 MG TABLET PO SCH ×3 (07:57→23:14)
[2019-07-10] MEDS: PARoxetine 30 MG TABLET PO SCH (07:57)
[2019-07-10] MEDS ORDERED: Famotidine 20 MG TABLET PO SCH (09:00)
[2019-07-10] MEDS ORDERED: Ergocalciferol (VIT D2) 50,000 UNIT (1.25MG) CAP PO SCH (09:00)
[2019-07-10] MEDS ORDERED: levoFLOXacin 500 MG TABLET PO SCH ×2 (09:00)
[2019-07-10] MEDS ORDERED: Ringers Solution, Lactated 1,000 ML IVC SCH (17:00)
[2019-07-10] MEDS ORDERED: Ringers Solution, Lactated 500 ML IVC SCH (17:30)
[2019-07-10] MEDS ORDERED: Ondansetron 4 MG/2 ML VIAL IVP ONE (20:31)
[2019-07-11] MEDS: Insulin LISPRO 300 UNITS/3 ML VIAL SQ SCH ×3 (00:25→12:13)
[2019-07-11] MEDS: Melatonin 3 MG TABLET PO PRN (01:27)
[2019-07-11 05:59] LABS: Bilirubin,Urine Moderate (Negative); Blood,Urine Moderate (Negative); Clarity,Urine Cloudy (Clear); Color,Urine Red (Yellow); Glucose,Urine (UA) Normal (Normal); Ketones,Urine 15 mg/dL (Negative); Leukocyte Esterase,Urine Small (Negative); Nitrite,Urine Positive (Negative); Protein,Urine >=300 mg/dL (Neg-Trace); Specific Gravity,Urine 1.028 (1.010-1.025); Urobilinogen,Urine Normal (Normal)
[2019-07-11 06:01] LABS: Bacteria,Urine None Seen per hpf (None-Few); Hyaline Casts,Urine None Seen per lpf (None-Few); Squamous Epithelial Cell,Urine Many per lpf (None-Few)
[2019-07-11 06:12] LABS: RBC,Urine 0-3 per hpf (0-3)
[2019-07-11 06:35] LABS: Immature Granulocytes % 0.6 % (0-4)
[2019-07-11 06:37] LABS: Basophils % 0.2 %; Eosinophils # 0.1 K/mcL (0.0-0.6); Eosinophils % 2.7 %; Hematocrit 29.1 % (37.5-50.1); Hemoglobin 10.4 g/dL (12.9-16.9); Immature Platelets 5.5 % (1.1-6.1); Lymphocytes % 19.5 %; Mean Corpuscular HGB Conc 35.7 g/dL (31.6-35.5); Mean Corpuscular Hemoglobin 32.8 pg (28.0-33.3); Mean Corpuscular Volume 91.8 fL (83.0-100.0); Mean Platelet Volume 11.4 fL (9.4-12.4); Monocytes # 0.7 K/mcL (0.0-1.3); Platelet Count 84 K/mcL (140-400); Red Blood Count 3.17 M/mcL (4.19-5.50); Red Cell Distribution Width 14.7 % (11.5-14.5); White Blood Count 4.9 K/mcL (4.3-11.1)
[2019-07-11] MEDS: Levothyroxine 25 MCG TABLET PO SCH (06:43)
[2019-07-11] MEDS: Ranolazine 500 MG TAB.ER.12H PO SCH (06:44)
[2019-07-11] MEDS: Ondansetron 4 MG/2 ML VIAL IVP PRN (06:47)
[2019-07-11 07:01] LABS: Calcium 9.7 mg/dL (8.6-10.3); Potassium 3.8 mEq/L (3.5-5.1)
[2019-07-11 07:15] LABS: Troponin I 0.73 ng/mL (< 0.04)
[2019-07-11] MEDS: metroNIDAZOLE 500 MG TABLET PO SCH ×2 (08:15→12:14)
[2019-07-11] MEDS: Renal Vitamin 1 CAP CAPSULE PO SCH (08:16)
[2019-07-11] MEDS: Gabapentin 300 MG CAPSULE PO SCH (08:16)
[2019-07-11] MEDS: Loratadine 10 MG TABLET PO SCH (08:16)
[2019-07-11] MEDS: PARoxetine 30 MG TABLET PO SCH (08:16)
[2019-07-11] MEDS: Aspirin Enteric Coated 81 MG Tablet PO SCH (08:16)
[2019-07-11] MEDS: Niacin (24 HR) 500 MG TAB.ER.24H PO SCH (08:16)
[2019-07-11] MEDS: Calcium Acetate 667 MG CAPSULE PO SCH ×2 (08:17→12:13)
[2019-07-11] MEDS ORDERED: levoFLOXacin 500 MG TABLET PO SCH (09:00)
[2019-07-11] MEDS: Metoprolol XL (24 HR) Succ 25 MG TAB.ER.24H PO SCH ×2 (09:55→12:13)
[2019-07-11 12:05] VITALS: BP 110/63
== END 2019-07-11 14:27 | disposition home or self-care (01) ==
LOC: EMEROOARM 06:23 → 2ANU 06:23 → SUATTDRO 10:14 → 2ANU 10:47
PROVIDERS: ADMIT Internal Medicine Nephrology; ATTEND Internal Medicine

== ENCOUNTER 2019-08-05 11:14 | Inpatient (IN) ==
[2019-08-05] MEDS ORDERED: *HR* Heparin 5,000 UNIT/ML VIAL IVP ONE (12:09)
[2019-08-05] MEDS ORDERED: *HR* Heparin 5,000 UNIT/ML VIAL IVP PRN (12:09)
--- NOTE | 2019-08-05 12:20 | Emergency Department Note ---
Disposition Clinical Impression: ESRD (end stage renal disease), Altered level of consciousness Myocardial infarction acute Qualifiers: Myocardial infarction type: unspecified Involved coronary artery: unspecified coronary artery Qualified Code(s): I21.9 - Acute myocardial infarction, unspecified Anemia Qualifiers: Anemia type: unspecified type Qualified Code(s): D64.9 - Anemia, unspecified Disposition: Admitted As Inpatient Condition: Fair Time of Disposition: 13:21 General Adult HPI - General Chief complaint: ED Recheck/Abnormal Lab/Rx Stated complaint: Elevated Trop/ Headache Time Seen by Provider: 08/05/19 11:27 Source: patient, EMS Limitations: no limitations Nursing Notes Reviewed: Yes Vital Signs Reviewed: Yes - History of Present Illness HPI Narrative: I did see the patient immediately upon arrival and also spoke with the paramedics and the patient is transferred from the [facility] with an elevated troponin and it was difficult to get a history from the patient as he does have confusion and I did review his record from the [facility] showing elevated troponin 1.3. The patient said he has had chest discomfort through the night with associated diaphoresis and dyspnea however I did ask him twice and he confirms is no curre nt chest discomfort. No chest pain or tightness or discomfort or pressure or heaviness. Does have bilateral shoulder pain but said this is worse with range of motion. He denies any current diaphoresis or dyspnea. No pleuritic aspect. No unilateral pain or swelling of the lower extremities. No fevers or blood in stool. The patient does have end-stage renal disease and last dialysis was yesterday. He was at the [facility] for [facility] after a neck surgery he had at [facility] a few weeks ago. Says he will need to wear a neck brace for the next 4 or 6 weeks. Social history: No smoking or alcohol The patient does have a history of CABG operations in 1998 and 2002 Pain Scale: 0 - Related Data Home Medications Medication Instructions Recorded Confirmed Calcium Acetate [Phos-LO] 1,334 mg PO TIDWM 10/04/16 08/05/19 Pantoprazole Sodium [Protonix] 40 mg PO DAILY 10/04/16 08/05/19 Ranitidine HCl [Heartburn Relief] 150 mg PO DAILY 10/04/16 08/05/19 Insulin ASPART [NovoLOG] 45 unit SQ BIDWM 04/25/17 08/05/19 Renal Vitamin [Renal Caps Softgel] 1 mg PO DAILY 01/29/18 08/05/19 Atorvastatin Calcium [Lipitor] 40 mg PO HS 12/10/18 08/05/19 Buspirone HCl [Buspar] 5 mg PO TID 12/10/18 08/05/19 Cetirizine HCl [24Hour Allergy] 5 mg PO DAILY 12/10/18 08/05/19 Gabapentin [Neurontin] 300 mg PO DAILY 12/10/18 08/05/19 Levothyroxine [Synthroid] 25 mcg PO QAM 12/10/18 08/05/19 Paroxetine [Paxil] 30 mg PO QAM 12/10/18 08/05/19 Niacin (24 HR) [Niaspan] 500 mg PO DAILY 04/28/19 08/05/19 Ergocalciferol (VITAMIN D2) 50,000 unit PO SA 06/25/19 08/05/19 [Vitamin D2] Insulin Glargine [Lantus] 100 unit SQ BID 08/05/19 08/05/19 Isosorbide MONOnitrate [Isosorbide 30 mg PO DAILY 08/05/19 08/05/19 Mononitrate ER] Melatonin/Pyridoxine HCl (B6) 1 each PO HS 08/05/19 08/05/19 [Melatonin 3 mg Tablet] Oxycodone HCl 7.5 mg PO Q6H PRN 08/05/19 08/05/19 Oxycodone HCl 15 mg PO Q6H PRN 08/05/19 08/05/19 Previous Rx's Medication Instructions Recorded Aspirin Enteric Coated [Aspirin EC] 81 mg PO DAILY tablet. 12/14/18 Lisinopril [Zestril] 2.5 mg PO DAILY 30 Days #30 tablet 06/29/19 Metoprolol XL (24 HR) Succ [Toprol 12.5 mg PO DAILY 30 Days #30 07/11/19 Xl] tab.er.24h Allergies Allergy/AdvReac Type Severity Reaction Status Date / Time codeine Allergy Unknown Hives Verified 07/19/19 05:01 methadone [Methadone] Allergy Unknown Rash Verified 07/19/19 05:01 Penicillins [PCN] Allergy Unknown Rash Verified 07/19/19 05:01 promethazine [From Phenergan] Allergy Unknown Hives Verified 07/19/19 05:01 trazodone Allergy Unknown Itching Verified 07/19/19 05:01 Limitations: ROS unobtainable due to patients medical condition Past Medical History - Past Medical History Medical history: Reports: arthritis, coronary artery disease, diabetes, dialysis, GERD, hyperlipidemia, hypertension, myocardial infarction, renal disease, other Surgical history: Reports: angioplasty/stent, coronary bypass (CABG) (2v CABG in 1998, redo 3v CABG in 2002), orthopedic, other (Surgery on right knee x4, scope on left knee x1), other (Amputation of left great toe, re-attachment of right hand after accident at work) Psychiatric history: Reports: anxiety, depression - Social History Smoking Status: Never smoker Smokeless Tobacco Status: No Alcohol use: Reports: none Drug use: Reports: none Physical Exam CONSTITUTIONAL: Alert, he thought the year was 2008, thought he was at the [facility], does not know the month, does give some history was questionable reliability, well-nourished, in no apparent distress, strength 5/5 flexion and extension 4 extremities, finger to nose testing is normal 2, cranial nerves III12 are normal HEAD: Normocephalic; atraumatic. EYES: PERRL, no scleral icterus. NOSE: The nose is normal in appearance without rhinorrhea RESP: Normal chest excursion with respiration; breath sounds clear and equal b ilaterally; no wheezes, rhonchi, or rales CARD: Regular rhythm, without murmurs, rub or gallop ABD: Non-distended; non-tender, soft,without rigidity, rebound or guarding SKIN: Normal for age and race; warm and dry; no apparent lesions extremities: Pulses 2+ and equal 4 extremities, no pain or swelling bilateral lower extremities no calf muscle pain with palpation. - General Limitations: no limitations General appearance: alert, in no apparent distress Course Vital Signs Temperature 99.4 F 08/05/19 11:21 Pulse Rate 83 08/05/19 11:21 Respiratory Rate 18 08/05/19 11:21 Blood Pressure 111/64 08/05/19 11:21 O2 Sat by Pulse Oximetry 95 08/05/19 11:21 Temperature 99.4 F 08/05/19 11:21 Pulse Rate 83 08/05/19 11:21 Respiratory Rate 18 08/05/19 11:21 Blood Pressure 111/64 08/05/19 11:21 O2 Sat by Pulse Oximetry 95 08/05/19 11:21 Oxygen Delivery Oxygen Delivery Room Air Medical Decision Making - MDM Narrative Medical decision making narrative: I did review an EKG done at 2:00 morning as well as EKG done at the [facility] at 902 and 903 and our EKG which is down here at this 1125 which does show normal sinus rhythm with a rate of 83 with evidence of lateral T-wave inversion and ST elevation in lead V1 and minimally in lead V3 which is new compared to last night but not new compared to 9:00 this morning. I did call and speak with the wire photo operator Dr. murphy we discussed the EKG results and lab results from the [facility] of the patient's condition including the fact that he has no chest discomfort at this time and the concern at this point is because of his confusion which are not able to find the previous record that a CT scan of the brain will be done, the patient was started on heparin, they will see the patient, the patient will be admitted to the hospitalist and care will be assumed by the cardiology team and results of our labs are ordered here are pending. 1221 I did review the patient's lab results and he does have worsened anemia 7.4 which is normocytic and this can be followed further the hospital. Chest x-rays negative. His repeat troponin has improved compared to last night. I did speak with Dr. murphy from cardiology we discussed the ST elevation and they will see the patient but this will not be heart alert at this time. The patient does have a head CT which is pending and the heparin will be started after that. I spoke with the hospitalist accepts the patient for admission. 1319 - Medical Records Medical records reviewed: Yes I reviewed the patient's medical records. - Lab Data Lab results reviewed: Yes I reviewed the patient's lab results. Result diagrams: 08/05/19 12:22 08/05/19 12:22 Lab Results 08/05/19 08/05/19 08/05/19 Range/Units 12:22 12:22 12:22 WBC 8.0 (4.3-11.1) K/mcL RBC 2.31 L (4.19-5.50) M/mcL Hgb 7.4 L (12.9-16.9) g/dL Hct 22.2 L (37.5-50.1) % MCV 96.1 (83.0-100.0) fL MCH 32.0 (28.0-33.3) pg MCHC 33.3 (31.6-35.5) g/dL RDW 16.6 H (11.5-14.5) % Plt Count 180 (140-400) K/mcL MPV 10.4 (9.4-12.4) fL Immature Gran % 0.4 (0-4) % Seg Neutrophils % 80.4 % Lymphocytes % 6.3 % Monocytes % 11.8 % Eosinophils % 0.8 % Basophils % 0.3 % Neutrophils # 6.4 (1.6-8.9) K/mcL Lymphocytes # 0.5 L (0.6-4.6) K/mcL Monocytes # 0.9 (0.0-1.3) K/mcL Eosinophils # 0.1 (0.0-0.6) K/mcL Basophils # 0.0 (0.0-0.2) K/mcL PT 23.7 H (9.4-12.1) Seconds INR 2.1 APTT 31.8 (26.0-36.0) Seconds Sodium 131 L (136-145) mEq/L Potassium 4.7 (3.5-5.1) mEq/L Chloride 94 L (98-107) mEq/L Carbon Dioxide 28 (23-29) mEq/L BUN 21 (8-23) mg/dL Creatinine 5.91 H (0.70-1.30) mg/dL Est GFR ( Amer) 12 L (> 60) Est GFR (Non-Af Amer) 10 L (> 60) BUN/Creatinine Ratio 4 L (6-26) Glucose 108 H (70-105) mg/dL Calculated Osmolality 276 L (280-300) Calcium 8.6 (8.6-10.3) mg/dL Troponin I 0.61 H* (< 0.04) ng/mL - Radiology Data Radiology results reviewed: Yes I reviewed the patient's radiology results. Critical Care Time Critical Care Time: Yes Total Critical Care Time: 30 Attestation: 30 minutes of critical care time were spent with this patient and coordinated multiple issues including acute WA, discussion with cardiology, evaluation of ST elevation on EKG and timing for catheter, administration of IV heparin, end- stage renal disease and worsened anemia
[2019-08-05 12:37] LABS: Basophils % 0.3 %; Eosinophils # 0.1 K/mcL (0.0-0.6); Eosinophils % 0.8 %; Hematocrit 22.2 % (37.5-50.1); Hemoglobin 7.4 g/dL (12.9-16.9); Immature Granulocytes % 0.4 % (0-4); Lymphocytes # 0.5 K/mcL (0.6-4.6); Lymphocytes % 6.3 %; Mean Corpuscular HGB Conc 33.3 g/dL (31.6-35.5); Mean Corpuscular Volume 96.1 fL (83.0-100.0); Mean Platelet Volume 10.4 fL (9.4-12.4); Monocytes # 0.9 K/mcL (0.0-1.3); Monocytes % 11.8 %; Neutrophils # 6.4 K/mcL (1.6-8.9); Platelet Count 180 K/mcL (140-400); Red Blood Count 2.31 M/mcL (4.19-5.50); Red Cell Distribution Width 16.6 % (11.5-14.5); Segmented Neutrophils % 80.4 %
[2019-08-05 12:46] LABS: INR 2.1; Prothrombin Time 23.7 Seconds (9.4-12.1)
[2019-08-05 12:49] LABS: Activated Partial Thrombo Time 31.8 Seconds (26.0-36.0)
[2019-08-05 12:58] LABS: Calcium 8.6 mg/dL (8.6-10.3); Potassium 4.7 mEq/L (3.5-5.1)
[2019-08-05 13:03] LABS: Troponin I 0.61 ng/mL (< 0.04)
[2019-08-05] MEDS ORDERED: Naloxone 0.4 MG/ML INJ IVP PRN (14:22)
[2019-08-05] MEDS ORDERED: *HR* Dextrose 50 % in Water (Syg) 50 ML SYRINGE IVP PRN (14:32)
[2019-08-05] MEDS ORDERED: Dextrose Gel 15 GM/37.5 ML TUBE PO PRN ×2 (14:32)
[2019-08-05] MEDS ORDERED: D5% in Water 1,000 ML IVC PRN (14:32)
[2019-08-05 15:12] LABS: Magnesium 2.1 mg/dL (1.6-2.6)
[2019-08-05] MEDS ORDERED: 0.9 % Sodium Chloride 250 ML IVC SCH (15:15)
--- NOTE | 2019-08-05 15:18 | Internal Med History&Physical ---
<Allyson Ramon - Last Filed: 08/05/19 16:35> Date of Encounter: 08/05/19 Internal Medicine - H&P: HPI History of present illness: Mr. Velarde is a 64 year old male Internal Medicine - H&P: Meds Calcium Acetate [Phos-LO] 1,334 mg PO TIDWM 10/04/16 [History] Pantoprazole Sodium [Protonix] 40 mg PO DAILY 10/04/16 [History] Ranitidine HCl [Heartburn Relief] 150 mg PO DAILY 10/04/16 [History] Insulin ASPART [NovoLOG] 45 unit SQ BIDWM 04/25/17 [History] Renal Vitamin [Renal Caps Softgel] 1 mg PO DAILY 01/29/18 [History] Atorvastatin Calcium [Lipitor] 40 mg PO HS 12/10/18 [History] Buspirone HCl [Buspar] 5 mg PO TID 12/10/18 [History] Cetirizine HCl [24Hour Allergy] 5 mg PO DAILY 12/10/18 [History] Gabapentin [Neurontin] 300 mg PO DAILY 12/10/18 [History] Levothyroxine [Synthroid] 25 mcg PO QAM 12/10/18 [History] Paroxetine [Paxil] 30 mg PO QAM 12/10/18 [History] Aspirin Enteric Coated [Aspirin EC] 81 mg PO DAILY tablet. 12/14/18 [Rx] Niacin (24 HR) [Niaspan] 500 mg PO DAILY 04/28/19 [History] Ergocalciferol (VITAMIN D2) [Vitamin D2] 50,000 unit PO SA 06/25/19 [History] Lisinopril [Zestril] 2.5 mg PO DAILY 30 Days #30 tablet 06/29/19 [Rx] Metoprolol XL (24 HR) Succ [Toprol Xl] 12.5 mg PO DAILY 30 Days #30 tab.er.24h 07/11/19 [Rx] Insulin Glargine [Lantus] 100 unit SQ BID 08/05/19 [History] Isosorbide MONOnitrate [Isosorbide Mononitrate ER] 30 mg PO DAILY 08/05/19 [History] Melatonin/Pyridoxine HCl (B6) [Melatonin 3 mg Tablet] 1 each PO HS 08/05/19 [History] Oxycodone HCl 7.5 mg PO Q6H PRN 08/05/19 [History] Oxycodone HCl 15 mg PO Q6H PRN 08/05/19 [History] Allergy/AdvReac Type Severity Reaction Status Date / Time codeine Allergy Unknown Hives Verified 07/19/19 05:01 methadone [Methadone] Allergy Unknown Rash Verified 07/19/19 05:01 Penicillins [PCN] Allergy Unknown Rash Verified 07/19/19 05:01 promethazine [From Phenergan] Allergy Unknown Hives Verified 07/19/19 05:01 trazodone Allergy Unknown Itching Verified 07/19/19 05:01 All Systems PM: A 10-system review of systems was performed and is negative for pertinent findings except as documented above in the HPI. - Constitutional Vitals: Temp Pulse Resp BP Pulse Ox 99.3 F 97 16 109/70 96 08/05/19 15:14 08/05/19 15:14 08/05/19 15:14 08/05/19 15:14 08/05/19 15:14 Internal Med - H&P Results - Labs CBC & Chem 7: 08/05/19 12:22 08/05/19 12:22 Labs: Short CBC 08/05/19 Range/Units 12:22 WBC 8.0 (4.3-11.1) K/mcL Hgb 7.4 L (12.9-16.9) g/dL Hct 22.2 L (37.5-50.1) % Plt Count 180 (140-400) K/mcL Neutrophils # 6.4 (1.6-8.9) K/mcL BMP 08/05/19 12:22 Sodium 131 L Potassium 4.7 Chloride 94 L Carbon Dioxide 28 BUN 21 Creatinine 5.91 H Glucose 108 H Calcium 8.6 Cardiac Enzymes 08/05/19 Range/Units 12:22 Troponin I 0.61 H* (< 0.04) ng/mL - Impressions ITS Impressions Chest X-Ray 08/05/19 12:40 IMPRESSION: No acute cardiopulmonary disease. D/ 08/05/2019 13:18:18 Ayden Magana MD / [email or web address] Interpreting Provider: Ayden Magana MD Head CT 08/05/19 13:46 IMPRESSION: No acute intracranial abnormality. Age related changes including chronic small vessel ischemic disease and cerebral atrophy. D/ / 08/05/2019 14:23:42 Nancy Carbone MD / [email or web address] Interpreting Provider: Nancy Carbone MD - Time Spent With Patient Total time spent is greater than 50% in coordination of care (as documented) at patient's floor/unit and/or counseling patient: - Attending Attestation I examined this patient and my medical decision-making was reviewed with the Resident Physician Dr Velarde. I agree with the documented findings, disposition and treatment plan as described except to the extent set forth below. Mr Velarde is being admitted for NSTEMI awake, rn and guidance secretary at bedside. he is mildly confused with incorrect answers to some questions but then recalls correct answer. he is easily distracted but when focuses is able to give better information. He denies having cp at this time or sob. He is now stating that yes he did have cp previously but can't recall exactly when. He does have neck pain and notes it to be unchanged since surgery, however, when asked, he did have a mechanical fall yesterday in which he hit his head and neck. Denies headache, vision changes or back pain, denies injury elsewhere. No numbness or tingling in the arm or pain in arm, has chronic toes and finger numbness unchanged. Denies strength change in arm. agreeable to blood transfusion. full code status gen- alert, awake,appears stated age, mildly confused eyes- pupils equal round , no scleral icterus, no conjunctival pallor cv- reg rate and rhythm, normal s1,s2, no murmurs appreciated, no le edema lungs- ctabl, no wheezing, rhonchi or crackles abd- soft, non tender, non distended,leon drain intact without skin changes surrounding it neuro- AAOxperson, place, year not date, CN grossly intact, UE sensation to lt touch intact and equal, UE strength 5/5 with encouragement to participate, no muscle jerks NSTEMI/ Severe CAD- cards consulted, med management at this time, hep gtt, cont home med regimen Chronic HFrEF, stable- strict i/os, wts, home meds, no diuretic as ESRD and gets HD for fluid removal ESRD- HD as per nephro Neck Pain chronic s/p ?fusion at [facility] this month w mechanical fall yesterday- currently w neck but and neurovascularly intact this [facility] and no imaging was obtained - stat XR c spine, further imaging pending result, staff obtaining [facility] records, CT head reviewed and no bleed Chronic anemia, suspected acute drop though unclear baseline at recent dc from [facility]- no active bleeding, monitor on hep gtt, given ACS and hgb less than 8 will give one unit prbcs now further dx and plan as noted by resident <Freddy Velarde - Last Filed: 08/05/19 16:48> Date of Encounter: 08/05/19 Time of Encounter: 15:16 Internal Medicine - H&P: HPI Chief complaint: Chest pain Admitted From: Hospital to Hospital Transfer Plans for Post Hospital Care: Transfer Inp Rehab Fac History of present illness: Mr. Velarde is a 64 year old male w/PMHx of CAD, DM, ESRD on dialysis, HTN, HLD presents to [facility] from [place] complaining of chest pain last night. Pain resolved this morning. EKG at [address] elevations in V1 and V3 which was unchanged on repeat EKG at 1125. Troponin elevated to 0.61 on admission. Patient is a poor historian and also presented in AMS. He did report a fall yesterday in which he hit his head. He is s/p cervical fusion from [facility] approximately 3 weeks ago. He has rigid c-spine collar in place and is reporting some neck pain. Patient is also s/p cholecystostomy placed by IR with plans for cholecystectomy in the coming weeks. Initial laboratory studies did not demonstrate signs of infection, CT of head was negative for acute process, XR c-spine pending. Patient is neurovascularly intact w/o evidence of UMN injury. AMS likely secondary to opioid use in ESRD, last dialysis was yesterday. Patient was started on Heparin drip and cardiology was consulted for possible NSTEMI. Nephrology was also consulted for ESRD and possible HD tomorrow. Patient admitted to the hospitalist service for acute NSTEMI. Past Med Surg Social Fam HX - Past Medical History Medical history: arthritis, coronary artery disease, diabetes, dialysis, GERD, hyperlipidemia, hypertension, myocardial infarction, renal disease, other Additional medical history: C1,2 L 5,6 arthritis , "nerve damage " Psychiatric history: anxiety, depression - Past Surgical History Surgical History: angioplasty/stent, coronary bypass (CABG) (2v CABG in 1998, redo 3v CABG in 2002), orthopedic, other (Surgery on right knee x4, scope on left knee x1), other (Amputation of left great toe, re-attachment of right hand after accident at work) Additional surgical history: cardiac stents 04/2018 , cabg 99 and 03 , Right hand re attached previous work accident, toe left great toe, left 3rd finger unable to extend finger for a couple years . multiple knee scopes ,arthritis , left antecubital AV fistula creation at [facility]. - Social History Smoking Status: Never smoker Smokeless Tobacco Status: No Alcohol use: none Drug use: none - Family History Father Adopted: No Family Member Ethnicity: Non- Living Status: Still Living Hx Family Cardiac Disorders: Yes (Coronary artery disease?) Hx Family Respiratory Disorders: No Hx Family Cancer: Yes Hx Family GI Disorders: No Hx Family Endocrine Disorder: Yes (brothers, sister) Hx Family Neuromuscular Disorders: No Hx Family Neurologic Disorders: No Hx Family HEENT Disorders: No Hx Family Autoimmune Disorders: No Brother Family Member Ethnicity: Non- Living Status: Still Living Hx Family Cardiac Disorders: Yes ([place]) Sister Family Member Ethnicity: Non- Living Status: Still Living Hx Family Endocrine Disorder: Yes (DM) Mother Adopted: No Family Member Ethnicity: Non- Living Status: Still Living Hx Family Cardiac Disorders: Yes ([place], Pacemaker) Hx Family Respiratory Disorders: Yes (COPD) Hx Family Cancer: Yes Hx Family GI Disorders: No Hx Family Endocrine Disorder: Yes (DM) Hx Family Neuromuscular Disorders: No Hx Family Neurologic Disorders: No Hx Family HEENT Disorders: No Hx Family Autoimmune Disorders: No All Systems PM: A 10-system review of systems was performed and is negative for pertinent findings except as documented above in the HPI. - Constitutional Constitutional: fatigue, weakness, no chills, no fever(s), no falls - EENT Eyes: no change in vision, no discharge, no loss of vision, no photophobia Ears: no decreased hearing, no tinnitus Nose, mouth and throat: neck pain, no facial pain, no mouth pain, no throat swelling, no tongue swelling - Cardiovascular Cardiovascular ROS IM: no chest pain (pt did not endorse chest pain, was reported to have chest pain at [place]), no diaphoresis, no dyspnea, no palpitations, no syncope - Respiratory Respiratory: no cough, no dyspnea, no wheezing - Gastrointestinal Gastrointestinal: no abdominal pain, no bloating, no constipation, no diarrhea, no nausea, no vomiting - Genitourinary Genitourinary ROS male: difficulty urinating, no hematuria - Musculoskeletal Musculoskeletal ROS IM: muscle weakness (Bilat upper ext), neck pain, stiffness - Integumentary Integumentary IM: no new lesions, no rash, no jaundice - Neurological Neurological ROS: confusion, radicular pain (upper ext), weakness, no abnormal speech, no dizziness, no focal weakness, no headache(s) - Psychiatric Psychiatric: confusion, no auditory hallucinations, no visual hallucinations - Endocrine Endocrine IM: fatigue, no excessive sweating - Hematologic/Lymphatic Hematologic/Lymphatic: no easy bleeding, no lymphadenopathy - Allergic/Immunologic Allergic/Immunologic: no tongue swelling, no throat swelling, no wheezing - Constitutional Vitals: Temp Pulse Resp BP Pulse Ox 99.3 F 97 16 109/70 96 08/05/19 15:14 08/05/19 15:14 08/05/19 15:14 08/05/19 15:14 08/05/19 15:14 General appearance: Present: A&O X 2 (alert, does not know month, stated that he was at [facility] but that we were in [place], knew name), no acute distress Exam: see below - Head Head exam: Present: atraumatic, normocephalic - Eye Eye exam: Present: PERRL (sluggish), conjuntiva pink, sclera anicteric Pupils: Present: miosis, normal accommodation - ENT ENT exam: Present: mucous membranes moist - Neck Additional comments: patient with rigid collar, s/p cervical fusion, complaining of neck pain, no pain when laying on side - Respiratory Respiratory exam: Present: CTAB. Absent: rales, rhonchi, wheezes - Cardiovascular Cardiovascular exam: Present: RRR, +S1, +S2. Absent: diastolic murmur, distant heart sounds, JVD, systolic murmur - GI/Abdominal GI/Abdominal exam: Present: normal bowel sounds, soft. Absent: firm, guarding, tenderness Additional comments: cholecystostomy present, no apparent infection of surgical site - Extremities Exam Extremities exam: Absent: cyanotic, joint swelling, pedal edema, tenderness - Neurological Exam Neurological exam: Present: CN II-XII intact, strengths equal and symetr throughout. Absent: motor sensory deficit, no focal deficits, facial droop, speech deficit Additional comments: patient with excessive movement of upper limbs, states that its chronic. Likely 2/2 opioid use. Reflexes 2+ and symmetric throughout, babinski downgoing. - Psychiatric Psychiatric exam: Present: flat affect, normal mood - Skin Skin exam: Present: dry, normal color, warm. Absent: rash Internal Med - H&P Results - Labs CBC & Chem 7: 08/05/19 12:22 08/05/19 12:22 Labs: Short CBC 08/05/19 Range/Units 12:22 WBC 8.0 (4.3-11.1) K/mcL Hgb 7.4 L (12.9-16.9) g/dL Hct 22.2 L (37.5-50.1) % Plt Count 180 (140-400) K/mcL Neutrophils # 6.4 (1.6-8.9) K/mcL BMP 08/05/19 12:22 Sodium 131 L Potassium 4.7 Chloride 94 L Carbon Dioxide 28 BUN 21 Creatinine 5.91 H Glucose 108 H Calcium 8.6 Cardiac Enzymes 08/05/19 Range/Units 12:22 Troponin I 0.61 H* (< 0.04) ng/mL - Impressions ITS Impressions Chest X-Ray 08/05/19 12:40 IMPRESSION: No acute cardiopulmonary disease. D/ 08/05/2019 13:18:18 Ayden Magana MD / kimberly Interpreting Provider: Ayden Magana MD Head CT 08/05/19 13:46 IMPRESSION: No acute intracranial abnormality. Age related changes including chronic small vessel ischemic disease and cerebral atrophy. D/ / 08/05/2019 14:23:42 Nancy Carbone MD / [email or web address] Interpreting Provider: Nancy Carbone MD - Assessment and Plan (1) NSTEMI (non-ST elevated myocardial infarction) Current Visit: No Status: Acute Assessment and plan: Patient is a 64 M w/hx of elevated troponin, recent LHC 1 month ago who presented with reported chest pain last night with associated diaphoresis. On my evaluation however, patient denied having chest pain or associated ACS symptoms. He does report moderate-severe neck pain likely 2/2 s/p cervical fusion. He is slightly confused A&Ox2 which is common for him after dialysis sessions per nursing. EKG performed at 900 demonstrated lateral T-wave inversion and ST e levation in lead V1 and V3. This is new for the patient. Repeat EKG done at 1125 was unchanged from 900. Troponin elevated to 0.67 at admission. This is not significantly above his fluctuating baseline. - Patient admitted, started on heparin gtt for NSTEMI. - Cardiology consulted, recs continuation of heparin, agreed to see patient. Appreciate there assistance. - Telemetry, repeat EKG at 0600. - Continue ASA, BB. (2) Altered level of consciousness Current Visit: Yes Status: Acute Assessment and plan: Patient with AMS, he is A&Ox2. History of fall on head/neck yesterday, difficult historian. Patient develops periods of confusion following dialysis per nursing. Last dialysis yesterday. Patient also on high doses of oxycodone with ESRD with pinpoint pupils which is likely contributing to his AMS. - Head CT negative for acute process. - Stat XR C-spine. - No obvious signs of infection. - Nephro consulted for dialysis. - D/C home oxycodone 15 mg, 7 mg Q6H PRN. - Start patient on oxycodone 7.5 mg PO Q8H. - Glucose Q6H. - NPO at this time. (3) Anemia Current Visit: Yes Status: Acute Assessment and plan: Patient with Hbg of 7.4 on admission with evidence of ACS and AMS. ESRD with cr eatinine of 5.91 on admission. - 1 unit PRBC given. - Keep Hbg > 8 while on heparin gtt. - H&H following transfusion. - Nephro consulted. - Continue to monitor. Qualifiers: Anemia type: unspecified type Qualified Code(s): D64.9 - Anemia, u nspecified (4) ESRD (end stage renal disease) Current Visit: Yes Status: Chronic Assessment and plan: Patient with ESRD and creatinine of 5.91 on admission. He is M, W, F, hemodialysis. Creatinine is at or slightly below baseline. No evidence of uremia. - Nephrology consulted, agreed to see patient, appreciate there assistance. - Hold lisinopril at this time. - Avoid nephrotoxic drugs. Renal dosing. - Strict I and Os. - Daily weights. (5) Status post cervical spinal fusion Current Visit: Yes Status: Acute Assessment and plan: Patient s/p cervical spine fusion for cervical spinal stenosis. Was seen on 07/12/19 at [facility] ED for fall. Imaging at that time revealed cervical and lumbar stenotic changes. He was transfered to [facility] for possible trauma eval. C-spine fusion reported to be at [facility]. Reported fall yesterday with head and neck trauma. Rigid c-spine collar in place. No evidence of acute focal neurologic changes, UMN lesions. Patient is reporting chronic neck pain since procedure. - Stat XR C-spine. - Head CT w/o evidence of acute process. - Keep cervical collar in place at this time. - Will obtain additional procedure information at [facility]. - Tylenol, oxycodone 7.5 mg Q8H for pain. (6) Status post cholecystectomy Current Visit: Yes Status: Acute Assessment and plan: Patient s/p cholecystotomy drain placement on 07/05. Drain placed by IR for acute cholecystitis. Plan was for cholecystectomy in 6-8 weeks following procedure. Drain is in place without evidence of infection. The patient denies abdominal pain. - NPO at this time 2/2 AMS. - Continue to monitor. (7) Diastolic heart failure Current Visit: Yes Status: Chronic Assessment and plan: Echocardiogram done on 06/25/19 demonstrated LVEF 30-35% with severe LV diastolic dysfunction. No acute exacerbation at this time. There is concern for fluid overload so we will hold IVF at this time. - Cardiology consulted. - Repeat echo ordered. - Strict I and O's. - Daily weights. Qualifiers: Heart failure chronicity: chronic Qualified Code(s): I50.32 - Chronic diastolic (congestive) heart failure - Time Spent With Patient Total time spent is greater than 50% in coordination of care (as documented) at patient's floor/unit and/or counseling patient:
--- NOTE | 2019-08-05 16:34 | Event Note ---
Date of Encounter: 08/05/19 Time of Encounter: 15:45 to serve as attending attestation pending completion of resident H&P I examined this patient and my medical decision-making was reviewed with the Resident Physician Dr Velarde. I agree with the documented findings, disposition and treatment plan as described except to the extent set forth below. Mr Velarde is being admitted for NSTEMI awake, rn and inspector balance wheel motion at bedside. he is mildly confused with incorrect answers to some questions but then recalls correct answer. he is easily distracted but when focuses is able to give better information. He denies having cp at this time or sob. He is now stating that yes he did have cp previously but can't recall exact ly when. He does have neck pain and notes it to be unchanged since surgery, however, when asked, he did have a mechanical fall yesterday in which he hit his head and neck. Denies headache, vision changes or back pain, denies injury elsewhere. No numbness or tingling in the arm or pain in arm, has chronic toes and finger numbness unchanged. Denies strength change in arm. agreeable to blood transfusion. full code status gen- alert, awake,appears stated age, mildly confused eyes- pupils equal round , no scleral icterus, no conjunctival pallor cv- reg rate and rhythm, normal s1,s2, no murmurs appreciated, no le edema lungs- ctabl, no wheezing, rhonchi or crackles abd- soft, non tender, non distended,leon drain intact without skin changes surrounding it neuro- AAOxperson, place, year not date, CN grossly intact, UE sensation to lt touch intact and equal, UE strength 5/5 with encouragement to participate, no muscle jerks NSTEMI/ Severe CAD- cards consulted, med management at this time, hep gtt, cont home med regimen Chronic HFrEF, stable- strict i/os, wts, home meds, no diuretic as ESRD and gets HD for fluid removal ESRD- HD as per nephro Neck Pain chronic s/p ?fusion at [facility] this month w mechanical fall yesterday- currently w neck but and neurovascularly intact this [facility] or [facility] and no imaging was obtained - stat XR c spine, further imaging pending result, staff obtaining [facility] records, CT head reviewed and no bleed Chronic anemia, suspected acute drop though unclear baseline at recent dc from [facility]- no active bleeding, monitor on hep gtt, given ACS and hgb less than 8 will give one unit prbcs now further dx and plan as noted by resident
[2019-08-05] MEDS: Heparin 25,000 UNIT/250 ML D5W 25,000 UNIT/250 ML IV.SOLN IVC SCH (16:51)
[2019-08-05] MEDS: Insulin LISPRO 300 UNITS/3 ML VIAL SQ SCH (17:42)
[2019-08-05] MEDS: Calcium Acetate 667 MG CAPSULE PO SCH (18:01)
[2019-08-05] MEDS: *HR* OxyCODONE Immed Rel 5 MG TABLET PO PRN (18:23)
[2019-08-05 20:17] LABS: Hepatitis B Surface Antibody 4.03 mIU/mL
[2019-08-05 20:28] LABS: Hepatitis B Surface Antigen Nonreactive (Nonreactive)
[2019-08-05] MEDS ORDERED: Perflutren Lipid Microsphere 1.3 ML in 0.9 % Sodium Chloride 8.7 ML IVP ONE (21:14)
[2019-08-05 22:12] LABS: Hematocrit 23.9 % (37.5-50.1)
[2019-08-05] MEDS: *HR* Heparin 5,000 UNIT/ML VIAL IVP PRN (22:48)
[2019-08-05] MEDS: Acetaminophen 325 MG TABLET PO PRN (22:48)
[2019-08-06] MEDS: Insulin LISPRO 300 UNITS/3 ML VIAL SQ SCH ×5 (00:14→21:00)
[2019-08-06 01:05] LABS: Hematocrit 23.2 % (37.5-50.1); Hemoglobin 7.5 g/dL (12.9-16.9); Mean Corpuscular HGB Conc 32.3 g/dL (31.6-35.5); Mean Corpuscular Hemoglobin 31.9 pg (28.0-33.3); Mean Corpuscular Volume 98.7 fL (83.0-100.0); Platelet Count 150 K/mcL (140-400); Red Blood Count 2.35 M/mcL (4.19-5.50); Red Cell Distribution Width 16.3 % (11.5-14.5); White Blood Count 6.8 K/mcL (4.3-11.1)
[2019-08-06 01:25] LABS: Albumin 3.3 g/dL (3.5-5.7); Bilirubin,Total 0.9 mg/dL (0.3-1.0); Calcium 8.4 mg/dL (8.6-10.3); Globulin 3.2 g/dL (2.4-3.5); Potassium 4.3 mEq/L (3.5-5.1); Total Protein 6.5 g/dL (6.4-8.9)
[2019-08-06] MEDS: *HR* OxyCODONE Immed Rel 5 MG TABLET PO PRN ×3 (04:32→23:54)
[2019-08-06] MEDS: Levothyroxine 25 MCG TABLET PO SCH (04:33)
--- NOTE | 2019-08-06 06:05 | Electrocardiograph Report ---
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
[2019-08-06] MEDS ORDERED: *HR* Heparin 10,000 UNIT/10 ML VIAL IV PRN (07:55)
[2019-08-06] MEDS ORDERED: 0.9 % Sodium Chloride 250 ML IVC PRN (07:55)
[2019-08-06] MEDS ORDERED: 0.9 % Sodium Chloride 1,000 ML PRIME SCH (08:00)
--- NOTE | 2019-08-06 08:43 | Internal Med Progress Note ---
<Allyson Ramon - Last Filed: 08/06/19 16:02> Hospitalist Progress Note - Encounter Date of Encounter: 08/06/19 - Exam Vitals: Temp Pulse Resp BP Pulse Ox 99.0 F 82 16 112/70 99 08/06/19 07:13 08/06/19 07:13 08/06/19 07:13 08/06/19 07:13 08/06/19 07:13 - Time Spent with Patient Total time spent is greater than 50% in coordination of care (as documented) at patient's floor/unit and/or counseling patient: Internal Medicine: Result - Labs CBC & Chem 7: 08/06/19 08:45 08/06/19 00:52 Labs: Short CBC 08/05/19 08/05/19 08/06/19 Range/Units 12:22 22:00 00:52 WBC 8.0 6.8 (4.3-11.1) K/mcL Hgb 7.4 L 8.0 L 7.5 L (12.9-16.9) g/dL Hct 22.2 L 23.9 L 23.2 L (37.5-50.1) % Plt Count 180 150 (140-400) K/mcL Neutrophils # 6.4 (1.6-8.9) K/mcL 08/06/19 Range/Units 08:45 WBC (4.3-11.1) K/mcL Hgb 8.1 L (12.9-16.9) g/dL Hct 24.8 L (37.5-50.1) % Plt Count (140-400) K/mcL Neutrophils # (1.6-8.9) K/mcL BMP 08/05/19 08/06/19 12:22 00:52 Sodium 131 L 129 L Potassium 4.7 4.3 Chloride 94 L 92 L Carbon Dioxide 28 26 BUN 21 26 H Creatinine 5.91 H 6.82 H Glucose 108 H 99 Calcium 8.6 8.4 L Cardiac Enzymes 08/05/19 08/05/19 08/06/19 Range/Units 12:22 18:33 00:52 Troponin I 0.61 H* 0.60 H* 0.57 H* (< 0.04) ng/mL Liver Function 08/06/19 Range/Units 00:52 Total Bilirubin 0.9 (0.3-1.0) mg/dL AST 23 (13-39) Units/L ALT 16 (7-52) Units/L Alkaline Phosphatase 141 H (34-104) Units/L Albumin 3.3 L (3.5-5.7) g/dL - ABG Interpretation ABG results: PT/INR, D-dimer PT 23.7 Seconds (9.4-12.1) H 08/05/19 12:22 - Impressions Impressions Chest X-Ray 08/05/19 12:40 IMPRESSION: No acute cardiopulmonary disease. D/ : / 08/05/2019 13:18:18 Ayden Magana MD / [email or web address] Interpreting Provider: Ayden Magana MD Head CT 08/05/19 13:46 IMPRESSION: No acute intracranial abnormality. Age related changes including chronic small vessel ischemic disease and cerebral atrophy. D/ / 08/05/2019 14:23:42 Nancy Carbone MD / [email or web address] Interpreting Provider: Nancy Carbone MD Echocardiogram Limited Views 08/05/19 21:59 Impressions: LVEF 35%. Mildly dilated left ventricle. Global left ventricular systolic dysfunction with regional variations. Atypical septal motion consistent with bundle branch block. There is no LV thrombus. Left Ventricular Wall Motion: Rest Echo Findings The apex, apical inferior, mid inferior, basal inferior, apical anterior, mid anterior, basal anterior, apical septal, mid inferior septal, basal inferior septal, apical lateral, mid anterior lateral, basal anterior lateral, mid anterior septal, mid inferior lateral, basal anterior septal and basal inferior lateral baldwin were hypokinetic. Findings: Study Quality * Technically adequate exam. ECG Findings * Unable to determine rhythm, tachycardia noted. Left Ventricle * LVEF 35%. * Mildly dilated left ventricle. * Global left ventricular systolic dysfunction with regional variations. * Atypical septal motion consistent with bundle branch block. * There is no LV thrombus. Consult Discharge Plan - Plan [facility]errals: [facility] Provider[facility] - - Attending Attestation I examined this patient and my medical decision-making was reviewed with the Resident Physician Dr Velarde. I agree with the documented findings, disposition and treatment plan as described except to the extent set forth below. Mr Velarde is being admitted for NSTEMI Overnight pt was sleeping and waking up, appearing to be hallucinating and then falling back asleep. He had sitter ordered. He is now in HD with sitter and very restless. He follows commands to open his eyes and answered that he is okay, but then closes them and doesn't answer further questions. Sitter notes he is restless, moving all ext, having some muscle jerks intermittently since starting HD. His XR neck has been done but remains not read this morning. A call was placed to Radiology and there was an error in there system and they are in process of having it read now. gen- somnolent in HD, appears stated age eyes- pupils equal round , no scleral icterus cv- reg rate and rhythm, normal s1,s2, no le edema lungs- ctabl, no wheezing, rhonchi or crackles neuro- AAOx person, CN grossly intact, moving all ext without focal deficit NSTEMI/ Severe CAD- appreciate cards input, med management and stop hep gtt Chronic HFrEF, stable- strict i/os, wts, HD Neck Pain chronic s/p ?fusion at [facility] this month w mechanical fall yesterday- XR cspine remains pending read, if abnormal will obtain CT scan and reach out to [facility] if needed Chronic anemia, suspected acute drop though unclear baseline at recent dc from [facility]- no active bleeding, hgb stable, at goal and hemodynamically s/p prbc 08/05 Acute Encephalopathy, unknown etiology at this time- possible related to high dose opiates in ESRD pt, no infectious cause identified, no metabolic cause identified (hyponatremia is chonic in nature and unlikely cause), he has no focal deficits suggesting CVA and has metal in neck prohibiting MRI -repeat CT head, attempt to contact family to obtain baseline mentation, if no improvement after HD and pending imaging and family report may need to consult Neuro further dx and plan as noted by resident dispo- when med clear will be back to [place] rehab Needs outpatient follow-up in 1-2 weeks s/p discharge w cards and Repeat TTE in 3 months to evaluate LVEF, if EF remains less than 30% need to consider ICD for primary prevention. update- family notes he has bipolar disorder and is "like this when off his me ds". He is receiving home meds we have confirmed and nursing to attempting to get [facility] to ensure accurate. On re eval he was AAOx3 when meeting with Dr Velarde. Then near evening he began hallucinating again and family feels this is new. XR cspine remains without read in [facility] but radiology staff confirmed read and gave verbal report that cspine hardware is in alignment. Will obtain CT head now <Freddy Velarde - Last Filed: 08/06/19 16:25> Hospitalist Progress Note - Encounter Date of Encounter: 08/06/19 Time of Encounter: 08:43 - Subjective Interval History: Patient is awake, alert, in bed, with continued neck, shoulder pain 2/2 c-spine fusion. He is fully A&Ox3 which appears to be his baseline. He is reporting neck and shoulder pain, but other ramirez asymptomatic. He asked me why he is not recieving his 3 oxycodone pills. I discussed with him that we needed to ensure that he was not overmedicated, however we are continuing lower dose of oxycodone to prevent withdrawal and manage pain. He agreed to this plan. Had no quesions. Patient seen s/p HD today. He continues to deny chest pain, sob, diaphoresis, fever, chills, n/v. Followed up with patient again with family at bedside. Family present is mother and brother. Mother reports that the [facility] called [facility] 1AM [facility]19 reporting that the patient was on the floor, likely unwitnessed fall. No additional information was provided. The mother and brother also state that the patients baseline mental status is rapidly alternating between normal A&Ox3 and agitated, o utbursting A&Ox2. This is comparative to his current status reported by nursing. However, the mother and brother report that the patient does not hallucinate, which has been present during these alternating episodes. The patient believes he has bipolar disorder, cannot confirm this. He is on buspar and paxil, mother states that those keep him calm during his outbursts. They do believe he has some mild dementia. - Exam Vitals: Temp Pulse Resp BP Pulse Ox 99.0 F 82 16 112/70 99 08/06/19 07:13 08/06/19 07:13 08/06/19 07:13 08/06/19 07:13 08/06/19 07:13 Exam: GA - A&Ox3, NAD. Head Head - atraumatic, normocephalic Eye- PERRL, conjuntiva pink, sclera anicteric ENT - mucous membranes moist Neck - patient with rigid collar, s/p cervical fusion, complaining of neck pain Respiratory - CTAB. Absent: rales, rhonchi, wheezes Cardiovascular - RRR, +S1, +S2. No murmur, JVDr GI - normal bowel sounds, soft. No tenderness cholecystostomy present, no apparent infection of surgical site Extremities - no cyanosis, joint swelling, pedal edema, tenderness Neurological - CN II-XII intact, strengths equal and symmetric throughout. No focal deficits, facial droop, speech deficit. patient with continued excessive movement of upper limbs, states that its chronic. Likely 2/2 opioid use. Reflexes 2+ and symmetric throughout, babinski downgoing. Psych - initial visit was A&Ox3, lucid. 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 He also stated that he was seeing things on the door, could not understand what he was speaking of. Skin - dry, normal color, warm. No rash. - Assessment and Plan (1) Elevated troponin Current Visit: Yes Status: Acute Assessment and Plan: Mr. Velarde is a 64 M w/hx of elevated troponins, ESRD, recent LHC 1 month ago who presented with reported chest pain. On my evaluation however, patient denied having chest pain or associated ACS symptoms. EKG performed 08/05/19 at 900 demonstrated lateral T-wave inversion and ST elevation in lead V1 and V3. Which was new for patient. Troponin trending down from 0.67 to 0.57 today. Patient continues to deny associated cp, sob, diaphoresis. Cardiology consulted. Repeat EKG revealed SR w/LVH--unchanged ST/T wave abnormalaties from previous exams. - Presentation not consistent with ACS per cards, recs D/C heparin gtt. - Cards recs continuation of Plavix, ASA, Statin, Ranexa, BB. Will continue at this time. (2) Altered level of consciousness Current Visit: Yes Status: Acute Assessment and Plan: Patient with AMS on admission, he is A&Ox3 today which appears to be at baseline. Had episodes of hallucinations last night reported by nursing staff which is not baseline per family. Likely but will r/o bleed 2/2 fall on 08/04/19. Patient develops periods of confusion following dialysis per nursing. Last dialysis today, scheduled M,W,F. Patient also on high doses of oxycodone at home. Speech therapy consulted, recs okay to start regular diet with thin liquids. - We will order stat repeat head CT w/o contrast 2/2 new onset hallucinations which have not been seen before by family and history of fall two days ago. - Initial head CT negative for acute process, evidence of atrophy present. - Stat XR C-spine returned with verbal results, hardware in alignment. - No obvious signs of infection. - Nephro consulted for dialysis. - Continue patient on oxycodone 7.5 mg PO Q8H for neck pain. - Glucose Q6H. (3) Anemia Current Visit: Yes Status: Acute Assessment and Plan: Patient with Hbg of 7.4 on admission, this was re-checked and found to be 8.0, up to 8.1 today. - 1 unit PRBC was given yesterday, Hbg at 8.1 now. - Heparin gtt d/c. - AM labs. - Nephro consulted for HD. - Continue to monitor. (4) ESRD (end stage renal disease) Current Visit: Yes Status: Chronic Assessment and Plan: Patient with ESRD and creatinine of 5.91 on admission. Repeat Cr 6.82 prior to HD today. He is M, W, F, hemodialysis. Creatinine is at or slightly below baseline. - Nephrology consulted, HD performed today. - Lisinopril continued. - Avoid nephrotoxic drugs. Renal dosing. - Strict I and Os. - Daily weights. - Diabetic, renal diet. (5) Status post cervical spinal fusion Current Visit: Yes Status: Acute Assessment and Plan: Patient s/p cervical spine fusion for cervical spinal stenosis w/associated neuropathy/intrinsic hand weakness/atrophy. C[facility]spine fusion at [facility]. Rigid c-spine collar in place. No evidence of acute focal neurologic changes, UMN lesions. Patient is reporting chronic neck pain since procedure. - Stat XR C-spine, awaiting results. - Head CT w/o evidence of acute process. - Keep cervical collar in place at this time. - Tylenol, oxycodone 7.5 mg Q8H for pain. (6) Status post cholecystectomy Current Visit: Yes Status: Acute Assessment and Plan: Patient s/p cholecystotomy drain placement on 07/05. Drain placed by IR for acute cholecystitis. Plan was for cholecystectomy in 6-8 weeks following procedure. Drain is in place without evidence of infection. The patient denies abdominal pain. - Advance diet. - Continue to monitor. (7) Diastolic heart failure Current Visit: Yes Status: Chronic Assessment and Plan: Echocardiogram done on 06/25/19 demonstrated LVEF 30-35% with severe LV diastolic dysfunction. No acute exacerbation at this time. - Cardiology consulted, recs continuation ACEi, BB, statin, ASA. - Repeat echo revealed no significant change. - OP follow up in 1-2 weeks at discharge. - Repeat TTE in 3 months with consideration of ICD placement per cards. - Strict I and O's. - Daily weights. DVT Prophylaxis: heparin sq - Time Spent with Patient Total time spent is greater than 50% in coordination of care (as documented) at patient's floor/unit and/or counseling patient: Plan of Care Discussed with: patient Internal Medicine: Result - Labs CBC & Chem 7: 08/06/19 08:45 08/06/19 00:52 Labs: Short CBC 08/05/19 08/05/19 08/06/19 Range/Units 12:22 22:00 00:52 WBC 8.0 6.8 (4.3-11.1) K/mcL Hgb 7.4 L 8.0 L 7.5 L (12.9-16.9) g/dL Hct 22.2 L 23.9 L 23.2 L (37.5-50.1) % Plt Count 180 150 (140-400) K/mcL Neutrophils # 6.4 (1.6-8.9) K/mcL BMP 08/05/19 08/06/19 12:22 00:52 Sodium 131 L 129 L Potassium 4.7 4.3 Chloride 94 L 92 L Carbon Dioxide 28 26 BUN 21 26 H Creatinine 5.91 H 6.82 H Glucose 108 H 99 Calcium 8.6 8.4 L Cardiac Enzymes 08/05/19 08/05/19 08/06/19 Range/Units 12:22 18:33 00:52 Troponin I 0.61 H* 0.60 H* 0.57 H* (< 0.04) ng/mL Liver Function 08/06/19 Range/Units 00:52 Total Bilirubin 0.9 (0.3-1.0) mg/dL AST 23 (13-39) Units/L ALT 16 (7-52) Units/L Alkaline Phosphatase 141 H (34-104) Units/L Albumin 3.3 L (3.5-5.7) g/dL - ABG Interpretation ABG results: PT/INR, D-dimer PT 23.7 Seconds (9.4-12.1) H 08/05/19 12:22 - Impressions Impressions Chest X-Ray 08/05/19 12:40 IMPRESSION: No acute cardiopulmonary disease. D/ /05/2019 13:18:18 Ayden Magana MD / [email or web address] Interpreting Provider: Ayden Magana MD Head CT 08/05/19 13:46 IMPRESSION: No acute intracranial abnormality. Age related changes including chronic small vessel ischemic disease and cerebral atrophy. D/ /05/2019 14:23:42 Nancy Carbone MD / [email or web address] Interpreting Provider: Nancy Carbone MD <Freddy Velarde - Last Filed: 08/06/19 16:25> (3) Anemia Qualifiers: Anemia type: unspecified type Qualified Code(s): D64.9 - Anemia, unspecified (7) Diastolic heart failure Qualifiers: Heart failure chronicity: chronic Qualified Code(s): I50.32 - Chronic diastol ic (congestive) heart failure
[2019-08-06 08:56] LABS: Hematocrit 24.8 % (37.5-50.1); Hemoglobin 8.1 g/dL (12.9-16.9)
[2019-08-06] MEDS: Calcium Acetate 667 MG CAPSULE PO SCH ×3 (08:59→17:03)
[2019-08-06] MEDS: Niacin (24 HR) 500 MG TAB.ER.24H PO SCH (09:11)
[2019-08-06] MEDS: Renal Vitamin 1 CAP CAPSULE PO SCH (09:12)
[2019-08-06] MEDS: Gabapentin 300 MG CAPSULE PO SCH (09:12)
[2019-08-06] MEDS: Aspirin Enteric Coated 81 MG Tablet PO SCH (09:12)
[2019-08-06] MEDS: Famotidine 20 MG TABLET PO SCH (09:12)
[2019-08-06] MEDS: Acetaminophen 325 MG TABLET PO PRN ×2 (09:35→21:07)
--- NOTE | 2019-08-06 11:35 | Cardiology Consult Note ---
<Gemma Suggs Miguel - Last Filed: 08/06/19 12:10> Date of Encounter: 08/06/19 Time of Encounter: 10:45 Assessment and Plan (1) Elevated troponin Current Visit: Yes Status: Acute Adynamic troponin elevation in the setting of ESRD, anemia. Presentation is not consistent with ACS. Of note, patient has chronically elevated troponin, troponin are actually lower this admission. Can d/c heparin gtt. TTE shows unchanged LVEF, 30-35%, severe global LV systolic dysfunction. (unchanged from TTE 06/25/19). Underwent LHC last month d/t decreased LVEF and medical therapy was recommended--there is severe 2V CAD. EF 20%. S/P CABG 1 of 3 patent bypass grafts. Severe stenosis in severely angulated portion of radial graft to diagonal that is ISR. Medical management recommended. On ASA, Plavix, Statin, Ranexa, BB, ACEi. Given hx of LM stent and restenosis s/p PTCA in the distal Left Main 05/2019, would recommend continuing DAPT (ASA and Plavix) indefinitely--will place order to resume Plavix now. No further inpt recommendations. (2) Ischemic cardiomyopathy Current Visit: Yes Status: Chronic Known hx of ICMP with HFrEF, 30-35% since June 2019. Continue GDMT including asa, statin, BB, ACEi. Volume mgmt per Nephrology, on HD. Needs outpatient follow-up in 1-2 weeks s/p discharge, will coordinate. Repeat TTE in 3 months to evaluate LVEF, if EF remains less than 30% need to consider ICD for primary prevention. (3) Coronary artery disease Current Visit: Yes Status: Chronic As above. Asa, statin, BB Qualifiers: Coronary Disease-Associated Artery/Lesion type: [place] artery [place] vs. transplanted heart: [place] heart Associated angina: with unspecified angina Qualified Code(s): I25.119 - Atherosclerotic heart disease of [place] coronary artery with unspecified angina pectoris Discussion w patient/family: The assessment and plan as outlined above was discussed with the patient and/or family members who expressed understanding and agreement. All questions were answered. Thank you for involving us in the care of your patient. Please call with any questions. History of Present Illness Consult date: 08/06/19 Requesting physician: Alexi Siddiqui Consult reason: Elevated troponin Chief complaint: AMS, chest pain History of present illness: Mr. Velarde is a 64 year old male with PMHx of CAD s/p CABG, s/p PCI, ESRD on HD< HTN, HLD who presented to [facility] as transfer from [place] due to elevated troponin. Per reports, patient had mechanical fall at home s/p recent neck fusion surgery at [place] which prompted ED evaluation. Unfortunately, he is noted to be confused upon exam today; however he is able to tell me time, location. He denies chest pain. He reports chest pain resolved after C last month. Multiple admissions over the past several months, he is noted to have chronically elevated troponin, troponin actually lower this admission compared to prior. Recent acute cholecystitis s/p drain placement d/t high operative risk. On arrival, ECG demonstrated SR with LVH--ST/T wave abnormalities unchanged from previous. Past Med Surg Social Fam HX - Past Medical History Attestation: Yes The following information was validated with the patient. Source: patient Medical history: arthritis, coronary artery disease, diabetes, dialysis, GERD, hyperlipidemia, hypertension, myocardial infarction, renal disease, other Additional medical history: C1,2 L 5,6 arthritis , "nerve damage " Psychiatric history: anxiety, depression - Past Surgical History Surgical History: angioplasty/stent, coronary bypass (CABG) (2v CABG in 1998, redo 3v CABG in 2002), orthopedic, other (Surgery on right knee x4, scope on left knee x1), other (Amputation of left great toe, re-attachment of right hand after accident at work) Additional surgical history: cardiac stents 04/2018 , cabg 99 and 03 , Right hand re attached previous work accident, toe left great toe, left 3rd finger unable to extend finger for a couple years . multiple knee scopes ,arthritis , left antecubital AV fistula creation at [facility]. - Social History Smoking Status: Never smoker Smokeless Tobacco Status: No Alcohol use: none Drug use: none - Family History Father Adopted: No Family Member Ethnicity: Non- Living Status: Still Living Hx Family Cardiac Disorders: Yes (Coronary artery disease?) Hx Family Respiratory Disorders: No Hx Family Cancer: Yes Hx Family GI Disorders: No Hx Family Endocrine Disorder: Yes (brothers, sister) Hx Family Neuromuscular Disorders: No Hx Family Neurologic Disorders: No Hx Family HEENT Disorders: No Hx Family Autoimmune Disorders: No Brother Family Member Ethnicity: Non- Living Status: Still Living Hx Family Cardiac Disorders: Yes ([place]) Sister Family Member Ethnicity: Non- Living Status: Still Living Hx Family Endocrine Disorder: Yes (DM) Mother Adopted: No Family Member Ethnicity: Non- Living Status: Still Living Hx Family Cardiac Disorders: Yes ([place], Pacemaker) Hx Family Respiratory Disorders: Yes (COPD) Hx Family Cancer: Yes Hx Family GI Disorders: No Hx Family Endocrine Disorder: Yes (DM) Hx Family Neuromuscular Disorders: No Hx Family Neurologic Disorders: No Hx Family HEENT Disorders: No Hx Family Autoimmune Disorders: No Medications and Allergies Calcium Acetate [Phos-LO] 1,334 mg PO TIDWM 10/04/16 [History] Pantoprazole Sodium [Protonix] 40 mg PO DAILY 10/04/16 [History] Ranitidine HCl [Heartburn Relief] 150 mg PO DAILY 10/04/16 [History] Insulin ASPART [NovoLOG] 45 unit SQ BIDWM 04/25/17 [History] Renal Vitamin [Renal Caps Softgel] 1 mg PO DAILY 01/29/18 [History] Atorvastatin Calcium [Lipitor] 40 mg PO HS 12/10/18 [History] Buspirone HCl [Buspar] 5 mg PO TID 12/10/18 [History] Cetirizine HCl [24Hour Allergy] 5 mg PO DAILY 12/10/18 [History] Gabapentin [Neurontin] 300 mg PO DAILY 12/10/18 [History] Levothyroxine [Synthroid] 25 mcg PO QAM 12/10/18 [History] Paroxetine [Paxil] 30 mg PO QAM 12/10/18 [History] Aspirin Enteric Coated [Aspirin EC] 81 mg PO DAILY tablet. 12/14/18 [Rx] Niacin (24 HR) [Niaspan] 500 mg PO DAILY 04/28/19 [History] Ergocalciferol (VITAMIN D2) [Vitamin D2] 50,000 unit PO SA 06/25/19 [History] Lisinopril [Zestril] 2.5 mg PO DAILY 30 Days #30 tablet 06/29/19 [Rx] Metoprolol XL (24 HR) Succ [Toprol Xl] 12.5 mg PO DAILY 30 Days #30 tab.er.24h 07/11/19 [Rx] Insulin Glargine [Lantus] 100 unit SQ BID 08/05/19 [History] Isosorbide MONOnitrate [Isosorbide Mononitrate ER] 30 mg PO DAILY 08/05/19 [History] Melatonin/Pyridoxine HCl (B6) [Melatonin 3 mg Tablet] 1 each PO HS 08/05/19 [History] Oxycodone HCl 10 mg PO Q6H PRN 08/05/19 [History] Clopidogrel [Plavix] 75 mg PO DAILY 08/06/19 [History] Allergy/AdvReac Type Severity Reaction Status Date / Time codeine Allergy Unknown Hives Verified 07/19/19 05:01 methadone [Methadone] Allergy Unknown Rash Verified 07/19/19 05:01 Penicillins [PCN] Allergy Unknown Rash Verified 07/19/19 05:01 promethazine [From Phenergan] Allergy Unknown Hives Verified 07/19/19 05:01 trazodone Allergy Unknown Itching Verified 07/19/19 05:01 All Systems Review: The remainder of the systems were reviewed and are negative - Cardiovascular Cardiovascular: as per HPI Physical Examination General: Conversant, Other (confused. ) HEENT: Atraumatic, Normocephaly Cardiac: Reg Rate and Rhythm, Normal S1 and S2 Lungs: Normal Breath Sounds (anterior only) Neuro: Alert and responsive (to self, confused. ) Abdomen: Soft Skin: No rashes noted on visualized skin Musculoskeletal: No Chest Wall Tenderness Extremities: No Edema, Normal Pulses Other: RUQ drain. Results 08/06/19 08:45 08/06/19 00:52 Lab Results 08/05/19 08/05/19 08/05/19 12:22 12:22 12:22 WBC 8.0 Hgb 7.4 L Hct 22.2 L Plt Count 180 INR 2.1 APTT 31.8 Sodium 131 L Potassium 4.7 Chloride 94 L Carbon Dioxide 28 BUN 21 Creatinine 5.91 H Glucose 108 H Calcium 8.6 Magnesium 2.1 Total Bilirubin AST ALT Alkaline Phosphatase Troponin I 0.61 H* 08/05/19 08/05/19 08/06/19 18:33 22:00 00:52 WBC Hgb 8.0 L Hct 23.9 L Plt Count INR APTT Sodium Potassium Chloride Carbon Dioxide BUN Creatinine Glucose Calcium Magnesium Total Bilirubin AST ALT Alkaline Phosphatase Troponin I 0.60 H* 0.57 H* 08/06/19 08/06/19 08/06/19 00:52 00:52 08:45 WBC 6.8 Hgb 7.5 L 8.1 L Hct 23.2 L 24.8 L Plt Count 150 INR APTT Sodium 129 L Potassium 4.3 Chloride 92 L Carbon Dioxide 26 BUN 26 H Creatinine 6.82 H Glucose 99 Calcium 8.4 L Magnesium Total Bilirubin 0.9 AST 23 ALT 16 Alkaline Phosphatase 141 H Troponin I Active Medications Acetaminophen (Tylenol) 650 mg PO Q6HR PRN PRN Reason: Mild Pain/Fever Stop: 02/04/20 14:23 Last Admin: 08/06/19 09:35 Dose: 650 mg Documented by: Aspirin (Aspirin Ec) 81 mg PO DAILY [facility] Stop: 02/05/20 09:01 Last Admin: 08/06/19 09:12 Dose: 81 mg Documented by: Atorvastatin Calcium (Lipitor) 40 mg PO HS [facility] Stop: 02/04/20 21:01 Last Admin: 08/05/19 22:48 Dose: 40 mg Documented by: Buspirone HCl (Buspar) 5 mg PO TID ЕЛЕНА Stop: 02/04/20 21:01 Last Admin: 08/06/19 09:12 Dose: 5 mg Documented by: Calcium Acetate (Phos-Lo) 1,334 mg PO TIDWM [facility] Stop: 02/04/20 17:01 Last Admin: 08/06/19 11:22 Dose: Not Given Documented by: Dextrose/Water (Dextrose 50% (Syg)) 25 ml IVP AD PRN PRN Reason: Hypoglycemia Stop: 02/04/20 14:33 Famotidine (Pepcid) 20 mg PO 0730 ЕЛЕНА Stop: 02/05/20 07:31 Last Admin: 08/06/19 09:12 Dose: 20 mg Documented by: Gabapentin (Neurontin) 300 mg PO DAILY [facility] Stop: 02/05/20 09:01 Last Admin: 08/06/19 09:12 Dose: 300 mg Documented by: Glucagon (Glucagen) 1 mg IM ONCE PRN PRN Reason: Hypoglycemia Stop: 02/04/20 14:33 Glucose (Gluctose) 15 gm PO ONCE PRN PRN Reason: Hypoglycemia Stop: 02/04/20 14:33 Last Admin: 08/05/19 23:37 Dose: 15 gm Documented by: Glucose (Gluctose) 30 gm PO ONCE PRN PRN Reason: Hypoglycemia Stop: 02/04/20 14:33 Heparin Sodium (Porcine) (Heparin) 4,000 unit IVP Q6HR PRN PRN Reason: SEE COMMENTS Stop: 02/04/20 12:10 Heparin Sodium (Porcine) (Heparin) 2,000 unit IVP Q6H PRN PRN Reason: SEE COMMENTS Stop: 02/04/20 12:10 Last Admin: 08/05/19 22:48 Dose: 2,000 unit Documented by: Heparin Sodium (Porcine) (Heparin) 4,000 unit IV ONCE PRN PRN Reason: heparin load Heparin Sodium/Dextrose (Heparin 25,000 Unit/250 Ml D5w) 25,000 unit in 250 mls @ 9.998 mls/hr IVC .Q24H ЕЛЕНА; Protocol Stop: 02/04/20 12:16 Last Titration: 08/06/19 05:54 Dose: 12.74 unit/kg/hr, 11.9 mls/hr Documented by: Dextrose (Dextrose 5%) 1,000 mls @ 100 mls/hr IVC .Q10H PRN PRN Reason: HYPOGLYCEMIA Stop: 02/04/20 14:33 Sodium Chloride (0.9 % Sodium Chloride) 250 mls @ 0 mls/hr IVC .Q0M ЕЛЕНА Stop: 02/04/20 15:16 Sodium Chloride (0.9 % Sodium Chloride) 250 mls @ 937.5 mls/hr IVC .Q16M PRN PRN Reason: Hypotension Stop: 02/05/20 07:56 Sodium Chloride (0.9 % Sodium Chloride) 1,000 mls @ 0 mls/hr PRIME .Q0M ЕЛЕНА Stop: 02/05/20 08:01 Insulin Human Lispro (Humalog) 0 units SQ Q6HR ЕЛЕНА; Protocol Stop: 02/04/20 18:01 Last Admin: 08/06/19 11:22 Dose: Not Given Documented by: Levothyroxine Sodium (Synthroid) 25 mcg PO 0630 ЕЛЕНА Stop: 02/05/20 06:31 Last Admin: 08/06/19 04:33 Dose: 25 mcg Documented by: Lisinopril (Zestril) 2.5 mg PO DAILY [facility]; Protocol Stop: 02/05/20 09:01 Metoprolol Succinate (Toprol Xl) 12.5 mg PO DAILY [facility] Stop: 02/05/20 09:01 Naloxone HCl (Narcan) 0.4 mg IVP Q2MPRN PRN PRN Reason: SEE COMMENTS Stop: 02/04/20 14:23 Niacin (Niaspan) 500 mg PO DAILY [facility] Stop: 02/05/20 09:01 Last Admin: 08/06/19 09:11 Dose: 500 mg Documented by: Omeprazole (Prilosec) 20 mg PO 0730 [facility] Stop: 02/05/20 07:31 Last Admin: 08/06/19 09:12 Dose: 20 mg Documented by: Oxycodone HCl (Roxicodone) 7.5 mg PO Q8HR PRN; Protocol PRN Reason: Severe Pain Stop: 02/04/20 15:03 Last Admin: 08/06/19 04:32 Dose: 7.5 mg Documented by: Paroxetine HCl (Paxil) 30 mg PO QAM [facility]; Protocol Stop: 02/05/20 09:01 Last Admin: 08/06/19 09:12 Dose: 30 mg Documented by: Vitamin B Complex/Vit C/Folic Acid (Renal Caps Softgel) 1 cap PO DAILY [facility] Stop: 02/05/20 09:01 Last Admin: 08/06/19 09:12 Dose: 1 cap Documented by: - Imaging and Cardiology Echo: report reviewed Cardiac cath: report reviewed - EKG Interpretation EKG results cardiology: personally reviewed Consult Discharge Plan - Plan [facility]errals: [facility] [Primary Care Provider] - <Virgil Ruiz - Last Filed: 08/06/19 16:48> Date of Encounter: 08/06/19 - Attending Attestation I have personally performed a face to face evaluation on this patient. I have reviewed and agree with the care plan. History and Exam by me shows: Known severe CAD for which medical mgmt. has been recommended. We are consulted for elevated troponin which is chronic and adynamic. Presentation is not consistent with ACS. Assessment and Plan Discussion w patient/family: The assessment and plan as outlined above was discussed with the patient and/or family members who expressed understanding and agreement. All questions were answered. Thank you for involving us in the care of your patient. Please call with any questions. History of Present Illness History of present illness: Mr. Velarde is a 64 year old male All Systems Review: The remainder of the systems were reviewed and are negative Physical Examination Vital Signs, Last 4 Hours Temp Pulse Resp BP Pulse Ox 08/06/19 16:00 98.5 F 81 18 137/76 96 08/06/19 13:50 97.7 F 17 131/61 08/06/19 13:25 137/76 08/06/19 13:10 118/61 08/06/19 12:55 125/61 Results 08/06/19 08:45 08/06/19 00:52 Lab Results 08/05/19 08/05/19 08/06/19 18:33 22:00 00:52 WBC Hgb 8.0 L Hct 23.9 L Plt Count Sodium Potassium Chloride Carbon Dioxide BUN Creatinine Glucose Calcium Total Bilirubin AST ALT Alkaline Phosphatase Troponin I 0.60 H* 0.57 H* 08/06/19 08/06/19 08/06/19 00:52 00:52 08:45 WBC 6.8 Hgb 7.5 L 8.1 L Hct 23.2 L 24.8 L Plt Count 150 Sodium 129 L Potassium 4.3 Chloride 92 L Carbon Dioxide 26 BUN 26 H Creatinine 6.82 H Glucose 99 Calcium 8.4 L Total Bilirubin 0.9 AST 23 ALT 16 Alkaline Phosphatase 141 H Troponin I
[2019-08-06] MEDS: *HR* Heparin 5,000 UNIT/ML VIAL IVP PRN (11:57)
[2019-08-06] MEDS: Metoprolol XL (24 HR) Succ 25 MG TAB.ER.24H PO SCH (14:01)
[2019-08-06] MEDS: Heparin 25,000 UNIT/250 ML D5W 25,000 UNIT/250 ML IV.SOLN IVC SCH (14:54)
--- NOTE | 2019-08-06 16:48 | Nephrology Consult Note ---
<Eimly Bello - Last Filed: 08/06/19 23:50> Date of Encounter: 08/06/19 Time of Encounter: 09:30 Assessment and Plan (1) ESRD (end stage renal disease) on dialysis Status: Acute Current regimen MWF at [facility]. HD completed today. Avoid nephrotoxins and renal dose. Strict I/O Will offer additional UF/HD if indicated. (2) Altered level of consciousness Status: Acute Per primary, patient is not at baseline. (3) Elevated troponin Status: Acute Per cardio. (4) Status post cervical spinal fusion Status: Acute C spine collar in place. (5) Status post cholecystectomy Status: Acute Cholecystecomy tube in place. History of Present Illness - Reason for Consult Consult date: 08/06/19 end stage renal disease Requesting physician: Allyson Ramon - Chief Complaint elevated trop, ESRD - History of Present Illness Mr. Velarde is a 64 year old male [place]. Pt reported dyspnea and diaphoresis through the night, before presenting to ED, but denied chest pain in ED. PMH: [place], HTN, HLD, ESRD. Current regimen is MWF with Dr. Sales. Has not missed HD recently per patient. However patient is confused at bedside. He does have a sitter. [place] residing [place] for [place]. He had neck surgery at [place] recently. [facility] were consulted to manage HD. HD ordered for today. Pt is unsure of FH. Denies tobacco, etoh, or illicit drug use. Past Med Surg Social Fam HX - Past Medical History Medical history: arthritis, coronary artery disease, diabetes, dialysis, GERD, hyperlipidemia, hypertension, myocardial infarction, renal disease, other Additional medical history: C1,2 L 5,6 arthritis , "nerve damage " Psychiatric history: anxiety, depression - Past Surgical History Surgical History: angioplasty/stent, coronary bypass (CABG) (2v CABG in 1998, redo 3v CABG in 2002), orthopedic, other (Surgery on right knee x4, scope on left knee x1), other (Amputation of left great toe, re-attachment of right hand after accident at work) Additional surgical history: cardiac stents 04/2018 , cabg 99 and 03 , Right hand re attached previous work accident, toe left great toe, left 3rd finger unable to extend finger for a couple years . multiple knee scopes ,arthritis , left antecubital AV fistula creation at [facility]. - Social History Smoking Status: Never smoker Smokeless Tobacco Status: No Alcohol use: none Drug use: none - Family History Father Adopted: No Family Member Ethnicity: Non- Living Status: Still Living Hx Family Cardiac Disorders: Yes (Coronary artery disease?) Hx Family Respiratory Disorders: No Hx Family Cancer: Yes Hx Family GI Disorders: No Hx Family Endocrine Disorder: Yes (brothers, sister) Hx Family Neuromuscular Disorders: No Hx Family Neurologic Disorders: No Hx Family HEENT Disorders: No Hx Family Autoimmune Disorders: No Brother Family Member Ethnicity: Non- Living Status: Still Living Hx Family Cardiac Disorders: Yes ([place]) Sister Family Member Ethnicity: Non- Living Status: Still Living Hx Family Endocrine Disorder: Yes (DM) Mother Adopted: No Family Member Ethnicity: Non- Living Status: Still Living Hx Family Cardiac Disorders: Yes ([place], Pacemaker) Hx Family Respiratory Disorders: Yes (COPD) Hx Family Cancer: Yes Hx Family GI Disorders: No Hx Family Endocrine Disorder: Yes (DM) Hx Family Neuromuscular Disorders: No Hx Family Neurologic Disorders: No Hx Family HEENT Disorders: No Hx Family Autoimmune Disorders: No Medications and Allergies Calcium Acetate [Phos-LO] 1,334 mg PO TIDWM 10/04/16 [History] Pantoprazole Sodium [Protonix] 40 mg PO DAILY 10/04/16 [History] Ranitidine HCl [Heartburn Relief] 150 mg PO DAILY 10/04/16 [History] Renal Vitamin [Renal Caps Softgel] 1 mg PO DAILY 01/29/18 [History] Atorvastatin Calcium [Lipitor] 40 mg PO HS 12/10/18 [History] Buspirone HCl [Buspar] 5 mg PO TID 12/10/18 [History] Cetirizine HCl [24Hour Allergy] 5 mg PO DAILY 12/10/18 [History] Gabapentin [Neurontin] 300 mg PO DAILY 12/10/18 [History] Levothyroxine [Synthroid] 25 mcg PO QAM 12/10/18 [History] Paroxetine [Paxil] 30 mg PO QAM 12/10/18 [History] Aspirin Enteric Coated [Aspirin EC] 81 mg PO DAILY tablet. 12/14/18 [Rx] Niacin (24 HR) [Niaspan] 500 mg PO DAILY 04/28/19 [History] Ergocalciferol (VITAMIN D2) [Vitamin D2] 50,000 unit PO SA 06/25/19 [History] Lisinopril [Zestril] 2.5 mg PO DAILY 30 Days #30 tablet 06/29/19 [Rx] Metoprolol XL (24 HR) Succ [Toprol Xl] 12.5 mg PO DAILY 30 Days #30 tab.er.24h 07/11/19 [Rx] Melatonin/Pyridoxine HCl (B6) [Melatonin 3 mg Tablet] 1 each PO HS 08/05/19 [History] Clopidogrel [Plavix] 75 mg PO DAILY 08/06/19 [History] Acetaminophen [Tylenol] 650 mg PO Q6HR PRN tablet 08/09/19 [Rx] Ciprofloxacin [Cipro] 500 mg PO DAILY 2 Days #2 tablet 08/09/19 [Rx] Insulin Glargine [Lantus] 20 unit SQ HS #0 08/09/19 [Rx] Insulin LISPRO [HumaLOG] 0 units SQ HS vial 08/09/19 [Rx] Insulin LISPRO [HumaLOG] 0 units SQ TIDAC vial 08/09/19 [Rx] Naloxone [Narcan] 0.4 mg IVP Q2MPRN PRN inj 08/09/19 [Rx] Oxycodone HCl 2.5 mg PO Q6H PRN 2 Days #4 tab 08/09/19 [Rx] Ranolazine [Ranexa] 1,000 mg PO BID tab.er.12h 08/09/19 [Rx] Allergy/AdvReac Type Severity Reaction Status Date / Time codeine Allergy Unknown Hives Verified 07/19/19 05:01 methadone [Methadone] Allergy Unknown Rash Verified 07/19/19 05:01 Penicillins [PCN] Allergy Unknown Rash Verified 07/19/19 05:01 promethazine [From Phenergan] Allergy Unknown Hives Verified 07/19/19 05:01 trazodone Allergy Unknown Itching Verified 07/19/19 05:01 Review of Systems All Systems review (narrative): The remainder of the systems are negative. Constitutional: fatigue, no chills, no fever(s) Cardiovascular: no chest pain at rest, no dyspnea, no edema Respiratory: no cough, no dyspnea, no hemoptysis Gastrointestinal: no diarrhea, no nausea, no vomiting Exam - Vital Signs Vital signs: Initial Vital Signs Temp Pulse Resp BP Pulse Ox 99.4 F 83 18 111/64 95 08/05/19 11:21 08/05/19 11:21 08/05/19 11:21 08/05/19 11:21 08/05/19 11:21 Vital Signs - Last 8 Hours Temp Pulse Resp BP Pulse Ox 08/06/19 16:00 98.5 F 81 18 137/76 96 08/06/19 13:50 97.7 F 17 131/61 08/06/19 13:25 137/76 08/06/19 13:10 118/61 08/06/19 12:55 125/61 08/06/19 12:40 106/55 08/06/19 12:25 122/99 08/06/19 12:10 125/64 08/06/19 11:55 117/61 08/06/19 11:40 109/60 08/06/19 11:25 113/52 08/06/19 11:10 108/67 08/06/19 10:55 118/60 08/06/19 10:40 113/77 08/06/19 10:25 98.9 F 17 113/82 Intake and Output 08/06/19 08/06/19 08/06/19 07:59 15:59 23:59 Intake Total 39 / 682.6 643.6 / 682.6 Output Total 0 / 4355 4355 / 4355 Balance 39 / -3672.4 -3711.4 / -3672.4 Intake: IV Fluids 39 / 182.6 143.6 / 182.6 Heparin 25,000 UNIT/250 ML D5W 39 / 182.6 143.6 / 182.6 25,000 unit In 250 ml @ 10.7 UNIT/KG/HR 9.998 mls/hr IVC . Q24H [facility] Rx#:[id number] Oral 0 / 0 Intake, Rinseback and Flushes 500 / 500 Output: Urine 0 / 0 0 / 0 Total Dialysis (HD) Output 3855 / 3855 Wound Drainage 500 / 500 Right Upper Abdomen 500 / 500 Other: Stool Size Small Stool Consistency formed Stool Color Green Pale # Bowel Movements 1 Weight 93.6 kg Blood Glucose* 84 73 Hemodialysis Net Fluid Removed 3255 (mL) Patient Weight 08/06/19 23:59 Weight 93.6 kg - General Appearance General appearance: well-developed, well-nourished EENT: ATNC, hearing intact, vision intact Additional Comments: C spine collar in place. Neck: supple Respiratory: clear Cardiology: no edema, normal S1, normal S2 Gastrointestinal: normoactive bowel sounds, no tenderness, no guarding Integumentary: no rash, warm and dry Neurologic: alert and oriented x3 Musculoskeletal: no deformities, no erythema Psychiatric: agitated Results - Lab Results 08/06/19 08:45 08/06/19 00:52 Consult Discharge Plan - Plan Referrals: Thomas Cantu DO [Partnered Physician] - Gemma Suggs CNP [Partnered Physician] - [facility]Primary Care Provider[facility] - ([place] is going [place]) Prescriptions: Ciprofloxacin [Cipro] 500 mg PO DAILY 2 Days #2 tablet Prescription Printed Oxycodone HCl 2.5 mg PO Q6H PRN 2 Days #4 tab PRN Reason: Pain Prescription Printed <Libia Ray - Last Filed: 08/15/19 18:57> Date of Encounter: 08/06/19 Assessment and Plan (1) ESRD (end stage renal disease) on dialysis Status: Chronic (2) Altered level of consciousness Status: Acute (3) Elevated troponin Status: Chronic (4) Status post cervical spinal fusion Status: Acute (5) Status post cholecystectomy Status: Acute Exam - Vital Signs Vital signs: Initial Vital Signs Temp Pulse Resp BP Pulse Ox 99.4 F 83 18 111/64 95 08/05/19 11:21 08/05/19 11:21 08/05/19 11:21 08/05/19 11:21 08/05/19 11:21 Results - Lab Results 08/10/19 06:31 08/10/19 06:31 - Attending Attestation I examined this patient and my medical decision-making was reviewed with the Resident Physician/STOCK SHIPPER. I agree with the documented findings, disposition and treatment plan as described except to the extent set forth below. In brief; 64 y o male with PMH of ESRD on HD M-W- with Dr Sales [place] elevated troponin. Renal consulted for ESRD management. Pt seen and eexamined on HD appears very confused. On exam; Gen: NAD, lungs: clear bilat, heart: S1S2, Ext: no LE edema bilat and Neuro: confused, disoriented. Continue HD with UF as tolerated. Would recommend holding gabapentin given altered mental status. Renal diet advised. Fluid restriction advised.
--- NOTE | 2019-08-06 17:47 | Electrocardiograph Report ---
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
[2019-08-06] MEDS: Ranolazine 500 MG TAB.ER.12H PO SCH (21:07)
[2019-08-07] MEDS ORDERED: Melatonin 3 MG TABLET PO ONE (01:15)
[2019-08-07 04:17] LABS: Basophils % 0.3 %; Eosinophils # 0.1 K/mcL (0.0-0.6); Hematocrit 25.3 % (37.5-50.1); Hemoglobin 8.1 g/dL (12.9-16.9); Immature Granulocytes % 0.3 % (0-4); Lymphocytes # 0.5 K/mcL (0.6-4.6); Lymphocytes % 8.3 %; Mean Corpuscular Hemoglobin 31.3 pg (28.0-33.3); Mean Corpuscular Volume 97.7 fL (83.0-100.0); Mean Platelet Volume 9.6 fL (9.4-12.4); Monocytes # 0.8 K/mcL (0.0-1.3); Monocytes % 13.1 %; Neutrophils # 4.7 K/mcL (1.6-8.9); Platelet Count 182 K/mcL (140-400); Red Blood Count 2.59 M/mcL (4.19-5.50); Red Cell Distribution Width 15.7 % (11.5-14.5); White Blood Count 6.1 K/mcL (4.3-11.1)
[2019-08-07 04:36] LABS: Calcium 8.4 mg/dL (8.6-10.3); Potassium 4.6 mEq/L (3.5-5.1)
[2019-08-07] MEDS: Levothyroxine 25 MCG TABLET PO SCH (05:49)
--- NOTE | 2019-08-07 07:57 | Internal Med Progress Note ---
<Juan Carlos Murray S - Last Filed: 08/07/19 14:14> Hospitalist Progress Note - Encounter Date of Encounter: 08/07/19 Time of Encounter: 07:57 - Subjective Interval History: Mr. Velarde is a 64-year-old male with medical history significant for CAD, CABG, DM, ESRD, cervical spine fusion who was admitted to our service for NSTEMI and altered mental status Last HD was yesterday, MWF outpatient schedule. On interview today, he was slee py and mumbling, was difficult to understand. She reports nasal congestion, but denies any chest pain, trouble breathing, headache, dizziness, trouble swallowing or speaking, nausea, vomiting, black stool, bloody stool. Per the overnight team, he had one complaint of chest pain which was fleeting, non- typical in nature, and had no associated EKG changes. Also overnight, he asked for more pain medicine and was frustrated that his opiate had been change from Q4h to Q8h, demanding that we switch it back. - Exam Vitals: Temp Pulse Resp BP Pulse Ox 98.5 F 78 18 124/59 93 08/07/19 06:58 08/07/19 06:58 08/07/19 06:58 08/07/19 06:58 08/07/19 06:58 Exam: Gen: somnolent, C-collar in place, appears uncomfortable. Head: Normocephalic, atraumatic ENT: Mucous membranes dry, CV: S1-S2 present, regular at a rate of approx 70, no murmurs rubs or gallops Pulm: CTAB, not tachypneic, no respiratory distress, no increased work of breathing Abd: Soft, nontender to palpation, nondistended, no rebound or guarding. Bowel sounds present. Cholecystostomy tube in place. No surrounding erythema or drainage EXT: Grossly intact motor strength in all 4 extremities, no lower extremity edema, no distal cyanosis Skin: Warm, dry, intact, no rashes or lesions noted, generalized pallor noted Neuro: Myoclonic jerks intermittently throughout exam Psych: constricted affect and irritable mood, Answers to questions are ruben and mumbled. He was oriented to self, place and date. - Assessment and Plan (1) Hypocalcemia Current Visit: Yes Status: Acute Assessment and Plan: Calcium 8.42 days * Oral repletion (2) Anemia Current Visit: Yes Status: Acute Assessment and Plan: Hemoglobin of 8.1 this morning No signs or symptoms of active bleeding Status post transfusion 1 unit PRBCs on 08/05/19 * Iron panel added to this morning's labs * Continue to monitor a.m. CBCs (3) NSTEMI (non-ST elevated myocardial infarction) Current Visit: No Status: Acute Assessment and Plan: Appreciate cardiology recommendations Heparin GTT discontinued yesterday, Plavix resumed Patient remains chest pain and shortness of breath free at this time * Continue medical management of CAD * Per cardio recs, outpatient TTE in 3 months (4) Occasional tremors Current Visit: No Status: Acute (5) Cholecystitis Current Visit: No Status: Acute Assessment and Plan: Cholecystostomy tube in place. Dressings appear clean and dry, no drainage erythema or edema noted No right upper quadrant tenderness Drain placed in June, with plan for cholecystectomy 6-8 weeks after placement (6) Status post cervical spinal fusion Current Visit: Yes Status: Acute Assessment and Plan: Patient reported mechanical fall (7) ESRD (end stage renal disease) on dialysis Current Visit: Yes Status: Acute Assessment and Plan: Patient usually receives dialysis on Friday Scheduled dialysis yesterday, Hemoglobin stable Calcium and other electrolytes stable Creatinine improved to 5.45 from 6.82 yesterday No significant change to mental status after receiving dialysis * Continue scheduled hemodialysis * Consult neurology for persistent altered mental status (8) Altered mental status Current Visit: Yes Status: Acute Assessment and Plan: Patient with waxing and waning hallucinations Past medical history significant for bipolar disease, per family patient has this mental status change when he is off his bipolar meds, however he has been taking them recently and has been getting them while in the hospital No focal neurologic deficits suggesting CVA Status post cervical spine fusion, hardware in neck preventing MRI Myoclonic jerking suggestive of opiate toxicity * Continue to taper off opiates * Dr. Cramer of Neurology consulted (9) Diabetes mellitus Current Visit: No Status: Chronic Assessment and Plan: * Diabetic diet * Sugars before meals and at bedtime * Sliding scale insulin DVT Prophylaxis: heparin sq - Summary of Assessment and Plan Summary of Assessment and Plan: * Taper opiates * Neurology consult * Hold gabapentin * Continue current management of chronic conditions * Assess possibility for discharge tomorrow - Time Spent with Patient Total time spent is greater than 50% in coordination of care (as documented) at patient's floor/unit and/or counseling patient: Internal Medicine: Result - Labs CBC & Chem 7: 08/07/19 03:58 08/07/19 03:58 Labs: Short CBC 08/06/19 08/07/19 Range/Units 08:45 03:58 WBC 6.1 (4.3-11.1) K/mcL Hgb 8.1 L 8.1 L (12.9-16.9) g/dL Hct 24.8 L 25.3 L (37.5-50.1) % Plt Count 182 (140-400) K/mcL Neutrophils # 4.7 (1.6-8.9) K/mcL BMP 08/07/19 03:58 Sodium 131 L Potassium 4.6 Chloride 92 L Carbon Dioxide 27 BUN 21 Creatinine 5.45 H Glucose 185 H Calcium 8.4 L - ABG Interpretation ABG results: PT/INR, D-dimer PT 23.7 Seconds (9.4-12.1) H 08/05/19 12:22 - Impressions Impressions Echocardiogram Limited Views 08/05/19 21:59 Impressions: LVEF 35%. Mildly dilated left ventricle. Global left ventricular systolic dysfunction with regional variations. Atypical septal motion consistent with bundle branch block. There is no LV thrombus. Left Ventricular Wall Motion: Rest Echo Findings The apex, apical inferior, mid inferior, basal inferior, apical anterior, mid anterior, basal anterior, apical septal, mid inferior septal, basal inferior septal, apical lateral, mid anterior lateral, basal anterior lateral, mid anterior septal, mid inferior lateral, basal anterior septal and basal inferior lateral baldwin were hypokinetic. Findings: Study Quality * Technically adequate exam. ECG Findings * Unable to determine rhythm, tachycardia noted. Left Ventricle * LVEF 35%. * Mildly dilated left ventricle. * Global left ventricular systolic dysfunction with regional variations. * Atypical septal motion consistent with bundle branch block. * There is no LV thrombus. Head CT 08/06/19 17:05 IMPRESSION: No acute intracranial abnormality. D/ / 08/06/2019 17:11:47 Nimo Smith MD / [email or web address] Interpreting Provider: Nimo Smith MD Consult Discharge Plan - Plan [facility]errals: [facility] [Primary Care Provider] - <Allyson Ramon - Last Filed: 08/07/19 15:00> Hospitalist Progress Note - Encounter Date of Encounter: 08/07/19 - Exam Vitals: Temp Pulse Resp BP Pulse Ox 98.3 F 79 18 131/73 96 08/07/19 11:46 08/07/19 11:46 08/07/19 11:46 08/07/19 11:46 08/07/19 11:46 - Time Spent with Patient Total time spent is greater than 50% in coordination of care (as documented) at patient's floor/unit and/or counseling patient: Internal Medicine: Result - Labs CBC & Chem 7: 08/07/19 03:58 08/07/19 03:58 Labs: Short CBC 08/07/19 Range/Units 03:58 WBC 6.1 (4.3-11.1) K/mcL Hgb 8.1 L (12.9-16.9) g/dL Hct 25.3 L (37.5-50.1) % Plt Count 182 (140-400) K/mcL Neutrophils # 4.7 (1.6-8.9) K/mcL BMP 08/07/19 03:58 Sodium 131 L Potassium 4.6 Chloride 92 L Carbon Dioxide 27 BUN 21 Creatinine 5.45 H Glucose 185 H Calcium 8.4 L - ABG Interpretation ABG results: PT/INR, D-dimer PT 23.7 Seconds (9.4-12.1) H 08/05/19 12:22 - Impressions Impressions Head CT 08/06/19 17:05 IMPRESSION: No acute intracranial abnormality. D/ /06/2019 17:11:47 Nimo Smith MD / earnold Interpreting Provider: Nimo Smith MD - Attending Attestation I examined this patient and my medical decision-making was reviewed with the Resident Physician Dr Murray. I agree with the documented findings, disposition and treatment plan as described except to the extent set forth below. Mr Velarde is being admitted for NSTEMI and encepahlopathy etiology unknown asleep, awakes to name, appears confused, but when I mentioned decreasing his pa in med dose immediately responded that he is getting less than previously. he can't meaningfully converse at this time due to confusion. denies chest pain or neck pain. 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 [employer], being faxed to floor, need to limit opiates given mentation anemia, chronicity uk- stable, at goal and hemodynamically s/p prbc 08/05, monitor Acute Encephalopathy, unknown etiology at this time he does have alteration in behavior and mentation at home as per family - possible related to high dose opiates in ESRD pt, no infectious cause identified, no metabolic cause identified (hyponatremia is chronic in nature and unlikely cause), he has no focal deficits suggesting CVA and has metal in neck prohibiting MRI -repeat CT head unremarkable, limit opaties, hold gabapentin, neuro consulted for further input further dx and plan as noted by resident dispo- when med clear [facility] Needs outpatient follow-up in 1-2 weeks s/p discharge w cards and Repeat TTE in 3 months to evaluate LVEF, if EF remains less than 30% need to consider ICD for primary prevention. <Juan Carlos Murray S - Last Filed: 08/07/19 14:14> (2) Anemia Qualifiers: Anemia type: unspecified type Qualified Code(s): D64.9 - Anemia, unspecified (9) Diabetes mellitus Qualifiers: Diabetes mellitus type: type 2 Diabetes mellitus prison insulin use: with adjunct faculty for medical terminology use Diabetes mellitus complication status: with kidney complications Diabetes mellitus complication detail: with chronic kidney disease Chronic kidney disease stage: on chronic dialysis Qualified Code(s): E11.22 - Type 2 diabetes mellitus with diabetic chronic kidney disease; N18.6 - End stage renal disease; 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
[2019-08-07] MEDS: Insulin LISPRO 300 UNITS/3 ML VIAL SQ SCH ×4 (08:57→20:29)
[2019-08-07] MEDS: Calcium Acetate 667 MG CAPSULE PO SCH ×3 (08:58→16:25)
[2019-08-07] MEDS: Gabapentin 300 MG CAPSULE PO SCH (08:59)
[2019-08-07] MEDS: Metoprolol XL (24 HR) Succ 25 MG TAB.ER.24H PO SCH (08:59)
[2019-08-07] MEDS: Famotidine 20 MG TABLET PO SCH (08:59)
[2019-08-07] MEDS: Aspirin Enteric Coated 81 MG Tablet PO SCH (08:59)
[2019-08-07] MEDS: Renal Vitamin 1 CAP CAPSULE PO SCH (08:59)
[2019-08-07] MEDS: Ranolazine 500 MG TAB.ER.12H PO SCH ×2 (08:59→20:13)
[2019-08-07] MEDS: Niacin (24 HR) 500 MG TAB.ER.24H PO SCH (08:59)
[2019-08-07] MEDS: *HR* OxyCODONE Immed Rel 5 MG TABLET PO PRN (09:00)
[2019-08-07] MEDS ORDERED: *HR* OxyCODONE Immed Rel 5 MG TABLET PO PRN (11:28)
--- NOTE | 2019-08-07 14:11 | Neurology - Consult Note ---
Date of Encounter: 08/07/19 Time of Encounter: 14:09 Assessment and Plan (1) Fluctuating mental status Current Visit: Yes Status: Acute This patient will seem to be having fluctuating mental status continued to have multiple medical conditions also on opioids for pain management with this recent neck surgery/fusion. Right now on examination he is alert awake and oriented able to give reasonable history, in fact he knows the dosage of his medication and also concerned about decreasing the dosage. Perhaps it is this metabolic dysfunction causing this fluctuating mental status No lateralizing sign on current neurological examination to be suggestive of stroke neither any other sign of myelopathy noted on examination Suggest continue to treat underlying metabolic infection and etiologies if he started getting more confused in the evening perhaps it could be tried on a low- dose of Seroquel (2) Myoclonic jerking Current Visit: Yes Status: Acute Patient noted to have myoclonic jerking on examination he is alert and awake during those jerkings no evidence of any seizures these are most commonly associated with opioids use especially in the patient with renal dysfunction Recommend decreasing the dosage off opioids though at the moment not sure patient would be able to tolerated as he still complaining of pain despite being on these medication If the jerking get worse could be tried on Depakote but again it may cause worsening of the mental status other option will be of clonazepam but again that could be associated with mental drowsiness Suggest keeping the fluid intake up little bit perhaps may benefit from repeat dialysis if indicated History of Present Illness HPI: Mr. Velarde is a 64 year old male with medical history of CAD, CABG, DM, ESRD, cervical spine fusion who was admitted for NSTEMI and altered mental status pt noted to have fluctuating mental status, CT of head is negative. currently PT denies any chest pain, trouble breathing, headache, dizziness, trouble swallowing or speaking, nausea, vomiting. pt is asking about his pain meds knows what and what time he was taking and now has been changed. Past Med Surg Social Fam HX - Past Medical History Medical history: arthritis, coronary artery disease, diabetes, dialysis, GERD, hyperlipidemia, hypertension, myocardial infarction, renal disease, other Additional medical history: C1,2 L 5,6 arthritis , "nerve damage " Psychiatric history: anxiety, depression - Past Surgical History Surgical History: angioplasty/stent, coronary bypass (CABG) (2v CABG in 1998, redo 3v CABG in 2002), orthopedic, other (Surgery on right knee x4, scope on left knee x1), other (Amputation of left great toe, re-attachment of right hand after accident at work) Additional surgical history: cardiac stents 04/2018 , cabg 99 and 03 , Right hand re attached previous work accident, toe left great toe, left 3rd finger unable to extend finger for a couple years . multiple knee scopes ,arthritis , left antecubital AV fistula creation at [facility]. - Social History Smoking Status: Never smoker Smokeless Tobacco Status: No Alcohol use: none Drug use: none - Family History Father Adopted: No Family Member Ethnicity: Non- Living Status: Still Living Hx Family Cardiac Disorders: Yes (Coronary artery disease?) Hx Family Respiratory Disorders: No Hx Family Cancer: Yes Hx Family GI Disorders: No Hx Family Endocrine Disorder: Yes (brothers, sister) Hx Family Neuromuscular Disorders: No Hx Family Neurologic Disorders: No Hx Family HEENT Disorders: No Hx Family Autoimmune Disorders: No Brother Family Member Ethnicity: Non- Living Status: Still Living Hx Family Cardiac Disorders: Yes (SC) Sister Family Member Ethnicity: Non- Living Status: Still Living Hx Family Endocrine Disorder: Yes (DM) Mother Adopted: No Family Member Ethnicity: Non- Living Status: Still Living Hx Family Cardiac Disorders: Yes (SC, Pacemaker) Hx Family Respiratory Disorders: Yes (COPD) Hx Family Cancer: Yes Hx Family GI Disorders: No Hx Family Endocrine Disorder: Yes (DM) Hx Family Neuromuscular Disorders: No Hx Family Neurologic Disorders: No Hx Family HEENT Disorders: No Hx Family Autoimmune Disorders: No Medications and Allergies Calcium Acetate [Phos-LO] 1,334 mg PO TIDWM 10/04/16 [History] Pantoprazole Sodium [Protonix] 40 mg PO DAILY 10/04/16 [History] Ranitidine HCl [Heartburn Relief] 150 mg PO DAILY 10/04/16 [History] Insulin ASPART [NovoLOG] 45 unit SQ BIDWM 04/25/17 [History] Renal Vitamin [Renal Caps Softgel] 1 mg PO DAILY 01/29/18 [History] Atorvastatin Calcium [Lipitor] 40 mg PO HS 12/10/18 [History] Buspirone HCl [Buspar] 5 mg PO TID 12/10/18 [History] Cetirizine HCl [24Hour Allergy] 5 mg PO DAILY 12/10/18 [History] Gabapentin [Neurontin] 300 mg PO DAILY 12/10/18 [History] Levothyroxine [Synthroid] 25 mcg PO QAM 12/10/18 [History] Paroxetine [Paxil] 30 mg PO QAM 12/10/18 [History] Aspirin Enteric Coated [Aspirin EC] 81 mg PO DAILY tablet. 12/14/18 [Rx] Niacin (24 HR) [Niaspan] 500 mg PO DAILY 04/28/19 [History] Ergocalciferol (VITAMIN D2) [Vitamin D2] 50,000 unit PO SA 06/25/19 [History] Lisinopril [Zestril] 2.5 mg PO DAILY 30 Days #30 tablet 06/29/19 [Rx] Metoprolol XL (24 HR) Succ [Toprol Xl] 12.5 mg PO DAILY 30 Days #30 tab.er.24h 07/11/19 [Rx] Insulin Glargine [Lantus] 100 unit SQ BID 08/05/19 [History] Isosorbide MONOnitrate [Isosorbide Mononitrate ER] 30 mg PO DAILY 08/05/19 [History] Melatonin/Pyridoxine HCl (B6) [Melatonin 3 mg Tablet] 1 each PO HS 08/05/19 [History] Oxycodone HCl 10 mg PO Q6H PRN 08/05/19 [History] Clopidogrel [Plavix] 75 mg PO DAILY 08/06/19 [History] Allergy/AdvReac Type Severity Reaction Status Date / Time codeine Allergy Unknown Hives Verified 07/19/19 05:01 methadone [Methadone] Allergy Unknown Rash Verified 07/19/19 05:01 Penicillins [PCN] Allergy Unknown Rash Verified 07/19/19 05:01 promethazine [From Phenergan] Allergy Unknown Hives Verified 07/19/19 05:01 trazodone Allergy Unknown Itching Verified 07/19/19 05:01 All Systems: The remainder of the systems were reviewed and are negative Physical Examination - Vital Signs Vital Signs: Initial Vital Signs Temp Pulse Resp BP Pulse Ox 99.4 F 83 18 111/64 95 08/05/19 11:21 08/05/19 11:21 08/05/19 11:21 08/05/19 11:21 08/05/19 11:21 - Exam Exam: GENERAL: Comfortable in no acute distress, mild myoclonic jerking HEENT: Neck hard collaar in place LUNGS: CTA HEART: RRR, S1 S2 Audible, no murmur EXTREMITIES: No Pedal edema. DETAILED NEUROLOGICAL EXAMINATION: MENTAL STATUS: Oriented to person, place, date and situation. Memory: knows the President, Aware of recent events Recent Memory Intact, Attention span is decreased as well as concentration Cranial Nerve Examination: CN - II: Visual Acuity, Field of Vision Normal, Fundus examination: No disk edema, Pupils- size shape reaction to light and accommodation: All normal. CN III, IV, : External ocular movements were intact, Pupils were reactive, Nodrooping of the eyelids CN V: Sensation over the face to light touch and pinprick all normal. Corneal reflexes not tested, jaw jerk normal. CN VII: No facial asymmetry, no flattening of nasolabial folds, no difficulty in closing the eyes, no loss of forehead wrinkles, no difficulty in eye-closure, frowning raising eyebrows. CNVIII: No significant hearing loss CN IX, X: Uvula centralized not deviated, Gag reflex: Not tested CN X1: Sternocleidomastoid, trapezius, normal or evidence of any weakness. CN X11: No Dysarthria, no wasting or fibrilation f tongue muscles, no deviation, tongue muscle strength normal. Motor examination: No hypertrophy, tone was normal, power grade 0-5 Upper limbs Proximal- No difficulty in lifting the arms above the head. Distal- No weakness in distal muscles On formal testing4/4 all over Lower limbs On formal testing 4/4 all over Coordination: [id number] normal. Target pursuit normal finger tapping normal, Rapid alternating moment of wrist normal Sensory system: Superficial sensations- Touch normal. Pain- Pinprick, Temperature inconsistent Deep tendon reflexes. Symmetrical bilateral, No evidence of Babinski. No sign of meningeal irritation Gait Examination: Deferred - Constitutional General appearance: comfortable Results - Laboratory Findings CBC and BMP: 08/07/19 03:58 08/07/19 03:58 Abnormal lab findings: Abnormal lab results RBC 2.59 M/mcL (4.19-5.50) L 08/07/19 03:58 Hgb 8.1 g/dL (12.9-16.9) L 08/07/19 03:58 Hct 25.3 % (37.5-50.1) L 08/07/19 03:58 RDW 15.7 % (11.5-14.5) H 08/07/19 03:58 Lymphocytes # 0.5 K/mcL (0.6-4.6) L 08/07/19 03:58 PT 23.7 Seconds (9.4-12.1) H 08/05/19 12:22 Heparin Anti-Xa, Unfract 0.00 IU/mL (0.30-0.70) L 08/06/19 17:48 Sodium 131 mEq/L (136-145) L 08/07/19 03:58 Chloride 92 mEq/L (98-107) L 08/07/19 03:58 BUN 26 mg/dL (8-23) H 08/06/19 00:52 Creatinine 5.45 mg/dL (0.70-1.30) H 08/07/19 03:58 Est GFR ( Amer) 13 (> 60) L 08/07/19 03:58 Est GFR (Non-Af Amer) 11 (> 60) L 08/07/19 03:58 BUN/Creatinine Ratio 4 (6-26) L 08/07/19 03:58 Glucose 185 mg/dL (70-105) H 08/07/19 03:58 POC Glucose 110 mg/dL (70-99) H 08/06/19 19:33 Calculated Osmolality 273 (280-300) L 08/06/19 00:52 Calcium 8.4 mg/dL (8.6-10.3) L 08/07/19 03:58 Alkaline Phosphatase 141 Units/L (34-104) H 08/06/19 00:52 Troponin I 0.57 ng/mL (< 0.04) H* 08/06/19 00:52 Albumin 3.3 g/dL (3.5-5.7) L 08/06/19 00:52 Albumin/Globulin Ratio 1.0 (1.1-2.2) L 08/06/19 00:52 Hep Bs Antibody 4.03 mIU/mL (10.00-) L 08/05/19 18:33 MTS Gel Crossmatch See Detail 08/05/19 14:35 - Diagnostic Findings Additional findings: CT scan of the head was reported as negative Consult Discharge Plan - Plan [facility]errals: [facility] [Primary Care Provider] -
--- NOTE | 2019-08-07 14:43 | Nephrology Progress Note ---
Date of Encounter: 08/07/19 Time of Encounter: 13:00 - Assessment and Plan (1) ESRD (end stage renal disease) on dialysis Current Visit: Yes Status: Acute (2) Altered level of consciousness Current Visit: Yes Status: Acute (3) Elevated troponin Current Visit: Yes Status: Acute (4) Status post cervical spinal fusion Current Visit: Yes Status: Acute (5) Status post cholecystectomy Current Visit: Yes Status: Acute Objective - Vital Signs Vital signs: Vital Signs Temp Pulse Resp BP Pulse Ox 08/07/19 11:46 98.3 F 79 18 131/73 96 08/07/19 06:58 98.5 F 78 18 124/59 93 08/07/19 03:46 97.7 F 77 18 117/67 96 08/07/19 00:10 99.6 F 84 18 130/68 95 08/06/19 19:29 99.4 F 86 18 138/75 95 08/06/19 16:00 98.5 F 81 18 137/76 96 Intake and Output 08/06/19 08/07/19 08/07/19 23:59 07:59 15:59 Intake Total 60 / 60 Output Total 150 / 150 0 / 150 Balance -150 / -90 60 / -90 Intake: Oral 60 / 60 Output: Urine 0 / 0 Wound Drainage 150 / 150 Right Upper Abdomen 150 / 150 Other: Meal Breakfast Percent of Meal Consumed 5% Stool Size Large Moderate Stool Consistency soft soft Stool Color Gilbert Colored Green Pale # Voids 1 # Bowel Movements 1 Weight 95.9 kg Blood Glucose* 110 170 196 Patient Weight 08/07/19 23:59 Weight 95.9 kg - Lab 08/07/19 03:58 08/07/19 03:58 Most recent lab results 08/07/19 03:58 Calcium 8.4 L Consult Discharge Plan - Plan Referrals: [facility] [Primary Care Provider] -
--- NOTE | 2019-08-07 15:16 | Electrocardiograph Report ---
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
[2019-08-07 16:47] LABS: Folate > 22.3 ng/mL (3.0-16.0); Vitamin B12 822 pg/mL (250-1100)
[2019-08-07 17:10] LABS: ABG Base Excess 9 mEq/L (-2 to 3); ABG HCO3 33 mEq/L (21-27); ABG Oxygen Saturation 94 % (95-98); ABG PCO2 42 mmHg (35-45); ABG PO2 64 mmHg (85-104); ABG TCO2 34 mEq/L (20-26)
--- NOTE | 2019-08-07 17:35 | Event Note ---
Date of Encounter: 08/07/19 Time of Encounter: 17:26 Nursing the page from the nursing staff that the patient was significantly lethargic, barely waking to sternal rub. Dr. Dangelo and myself went to the bedside, found the patient not opening eyes, making occasional grunting sounds, and with no motor response to pain giving him a GCS of 4 (E1, V2, M1). 0.4 g of Narcan were given IV while vital signs were assessed. Heart rate, blood pressure, temperature, and oxygen saturation were found to be within normal limits. Fingerstick glucose was also normal. A stat ABG was ordered which showed pH 7.50, pCO2 42, ,O2 64, HCO3 33 and O2 saturation of 94%. Bladder scan showed moderate urinary retention, and verbal order was given to straight cath the patient. Around this time, the patient's mental status improved significantly. He was opening his eyes spontaneously, was still confused, but obeyed commands, giving him in a GCS of 14 (E4, V4, M6). Patient was belligerent and cursing at nursing staff. Straight catheterization still pending, patient is being closely monitored, we will hold all opiates, and obtain a stat chest x-ray to investigate for causes of the low partial pressure of oxygen. The remainder of the plan as set forth in my note today remains unchanged.
[2019-08-07 18:10] LABS: Bilirubin,Urine Moderate (Negative); Blood,Urine Large (Negative); Clarity,Urine Cloudy (Clear); Color,Urine Red (Yellow); Glucose,Urine (UA) Normal (Normal); Ketones,Urine Trace mg/dL (Negative); Leukocyte Esterase,Urine Small (Negative); Nitrite,Urine Positive (Negative); Protein,Urine 100 mg/dL (Neg-Trace); Specific Gravity,Urine 1.024 (1.010-1.025); Urobilinogen,Urine Normal (Normal)
[2019-08-08] MEDS: Levothyroxine 25 MCG TABLET PO SCH (06:35)
[2019-08-08] MEDS: Insulin LISPRO 300 UNITS/3 ML VIAL SQ SCH ×4 (07:31→21:43)
[2019-08-08 07:33] LABS: Hematocrit 26.1 % (37.5-50.1); Hemoglobin 8.1 g/dL (12.9-16.9); Mean Corpuscular Hemoglobin 31.2 pg (28.0-33.3); Mean Corpuscular Volume 100.4 fL (83.0-100.0); Mean Platelet Volume 9.8 fL (9.4-12.4); Platelet Count 180 K/mcL (140-400); Red Cell Distribution Width 15.4 % (11.5-14.5); White Blood Count 5.2 K/mcL (4.3-11.1)
[2019-08-08 07:57] LABS: Calcium 8.5 mg/dL (8.6-10.3); Potassium 4.6 mEq/L (3.5-5.1)
[2019-08-08] MEDS: Calcium Acetate 667 MG CAPSULE PO SCH ×3 (08:13→17:08)
[2019-08-08] MEDS: Renal Vitamin 1 CAP CAPSULE PO SCH (08:13)
[2019-08-08] MEDS: Niacin (24 HR) 500 MG TAB.ER.24H PO SCH (08:13)
[2019-08-08] MEDS: Ranolazine 500 MG TAB.ER.12H PO SCH ×2 (08:13→20:16)
[2019-08-08] MEDS: Metoprolol XL (24 HR) Succ 25 MG TAB.ER.24H PO SCH (08:14)
[2019-08-08] MEDS: Famotidine 20 MG TABLET PO SCH (08:14)
[2019-08-08] MEDS: Aspirin Enteric Coated 81 MG Tablet PO SCH (08:14)
[2019-08-08] MEDS: Acetaminophen 325 MG TABLET PO PRN (08:14)
--- NOTE | 2019-08-08 08:16 | Internal Med Progress Note ---
<Juan Carlos Murray S - Last Filed: 08/08/19 13:19> Hospitalist Progress Note - Encounter Date of Encounter: 08/08/19 Time of Encounter: 08:16 - Subjective Interval History: Mr. Velarde is a 64-year-old male admitted to our service with NSTEMI/AMS. He is remarkably more alert than he was yesterday, and reports feeling okay. He was very inquisitive about what had happened in his stay so far, believing he had been in a different room yesterday than he was, and asking questions about the incident noted in my event yesterday. He was slightly frustrated and irritable, but was cooperative. We discussed the difference between his co ndition yesterday and today, as well as the fact that his pain medication was the apparent source of the problem He denies any chest pain, shortness of breath, dizziness, lightheadedness, trouble swallowing or speaking, blurry vision or double vision, diarrhea constipation, black stool or bloody stool, or dysuria - Exam Vitals: Temp Pulse Resp BP Pulse Ox 97.9 F 76 16 119/63 94 08/08/19 07:08 08/08/19 07:08 08/08/19 07:08 08/08/19 07:08 08/08/19 07:08 Exam: Gen: Awake, C-collar in place, appears much more oriented than yesterday. Head: Normocephalic, atraumatic ENT: Mucous membranes moist, EOMI CV: S1-S2 present, regular at a rate of approx 70, no murmurs rubs or gallops Pulm: CTAB, not tachypneic, no respiratory distress, no increased work of breathing Abd: Soft, nontender to palpation, nondistended, no rebound or guarding. Bowel sounds present. Cholecystostomy tube in place. No surrounding erythema or drainage EXT: Grossly intact motor strength in all 4 extremities, no lower extremity edema, no distal cyanosis Skin: Warm, dry, intact, no rashes or lesions noted, generalized pallor noted Neuro: Myoclonic jerks intermittently throughout exam, significantly reduced in frequency and severity from yesterday Psych: Affect is much more normal today, continues to have irritable mood, speaking in complete sentences, answering questions with intact judgment, appropriate insight, and linear thought - Assessment and Plan (1) Hypocalcemia Current Visit: Yes Status: Acute Assessment and Plan: Calcium was low today at 8.5 * By mouth calcium replacement 3 times a day before meals ordered (2) Anemia Current Visit: Yes Status: Acute Assessment and Plan: Hemoglobin is morning was 8.1 Received transfusion of PRBCs 08/05 Hemoglobin has remained stable 4 days * Serial CBCs every morning while inpatient (3) NSTEMI (non-ST elevated myocardial infarction) Current Visit: No Status: Acute Assessment and Plan: Patient without chest pain or shortness of breath Continues to be hemodynamically stable Cardiology plans to follow up as an outpatient * Continue current medical management (4) Occasional tremors Current Visit: No Status: Acute Assessment and Plan: Tremors have subsided significantly Yesterday, involved significant movement of whole limbs, occurring nearly continuously Today, isolated muscle group twitching observed occasionally Neurology consult yesterday, agrees this is likely opiate toxicity secondary to his ESRD * Limited opiate exposure * HD tomorrow per schedule * Reassess if Limited opiate pain management is insufficient (5) Cholecystitis Current Visit: No Status: Acute Assessment and Plan: Cholecystostomy tube in place. Dressings appear clean and dry, no drainage erythema or edema noted No right upper quadrant tenderness Drain placed in June, with plan for cholecystectomy 6-8 weeks after placement (6) Status post cervical spinal fusion Current Visit: Yes Status: Acute Assessment and Plan: Patient status post fall, C3-C7 surgical fusion Rigid c-collar in place Radiology report of cervical spine imaging faxed to nurse station of the [facility] floor yesterday * Maintain cervical immobilization * Pain management per plan above (7) ESRD (end stage renal disease) on dialysis Current Visit: Yes Status: Acute Assessment and Plan: Hemodialysis schedule Friday Opiates seem to be causing a significant amount of the patient's alterations in mental status, secondary to his ESRD and dialysis dependence Chest x-ray ordered during the incident yesterday afternoon showed signs of interstitial edema and pulmonary vascular congestion * HD as recommended by nephrology * Monitor for signs and symptoms of fluid overload * Careful administration of IV fluids * Reassessment just fluid status with HD per nephro (8) Altered mental status Current Visit: Yes Status: Acute Assessment and Plan: Much clearer sensorium today UTI identified on urinalysis * Neurology consulted * Limiting opiates as described above * Treatment with renal dosed Cipro with the assistance of pharmacy to include 400 mg IV daily (9) Diabetes mellitus Current Visit: No Status: Chronic Assessment and Plan: * Continue glucose checks and SSI (10) Urinary retention Current Visit: Yes Status: Acute Assessment and Plan: Skin yesterday afternoon of the patient's bladder showed 300 mL's retained urine * Bladder scans and straight catheter sister prevent urinary retention and exace rbation of UTI (11) UTI (urinary tract infection) Current Visit: Yes Status: Acute Assessment and Plan: Urinary tract infection identified following straight catheter yesterday Urine cultures ordered on that same sample today Patient continues to have episodes of urinary incontinence * Cipro 400 mg IV daily * Continue to monitor kidney function * Serial bladder scans and straight catheter as needed for further urinary retention DVT Prophylaxis: heparin sq - Summary of Assessment and Plan Summary of Assessment and Plan: * HD tomorrow per nephrology * Limit exposure to opiates * Cipro for UTI, bladder scans and straight catheters for urinary retention - Time Spent with Patient Total time spent is greater than 50% in coordination of care (as documented) at patient's floor/unit and/or counseling patient: Internal Medicine: Result - Labs CBC & Chem 7: 08/08/19 07:03 08/08/19 07:03 Labs: Short CBC 08/08/19 Range/Units 07:03 WBC 5.2 (4.3-11.1) K/mcL Hgb 8.1 L (12.9-16.9) g/dL Hct 26.1 L (37.5-50.1) % Plt Count 180 (140-400) K/mcL BMP 08/07/19 08/08/19 03:58 07:03 Sodium 131 L 132 L Potassium 4.6 4.6 Chloride 92 L 93 L Carbon Dioxide 27 24 BUN 21 33 H Creatinine 5.45 H 7.63 H Glucose 185 H 123 H Calcium 8.4 L 8.5 L Urine 08/07/19 Range/Units 17:50 Urine Color Red A (Yellow) Urine Clarity Cloudy A (Clear) Urine pH 5.0 (5.0-8.0) pH Units Ur Specific [place] 1.024 (1.010-1.025) Urine Protein 100 H (Neg-Trace) mg/dL Urine Glucose (UA) Normal (Normal) mg/dL - ABG Interpretation ABG results: ABG ABG pH 7.50 pH Units (7.32-7.45) H 08/07/19 17:06 ABG pCO2 42 mmHg (35-45) 08/07/19 17:06 ABG pO2 64 mmHg (85-104) L 08/07/19 17:06 ABG O2 Saturation 94 % (95-98) L 08/07/19 17:06 PT/INR, D-dimer PT 23.7 Seconds (9.4-12.1) H 08/05/19 12:22 - Impressions Impressions Chest X-Ray 08/07/19 18:42 IMPRESSION: Perihilar opacities worrisome for interstitial edema and pulmonary vascular congestion. D/ / Domingo Flowers / Domingo Flowers Interpreting Provider: Domingo Flowers Consult Discharge Plan - Plan [facility]errals: [facility] [Primary Care Provider] - <Allyson Ramon - Last Filed: 08/08/19 13:53> Hospitalist Progress Note - Encounter Date of Encounter: 08/08/19 - Exam Vitals: Temp Pulse Resp BP Pulse Ox 98.3 F 78 18 125/61 94 08/08/19 11:13 08/08/19 11:13 08/08/19 11:13 08/08/19 11:13 08/08/19 11:13 - Time Spent with Patient Total time spent is greater than 50% in coordination of care (as documented) at patient's floor/unit and/or counseling patient: Internal Medicine: Result - Labs CBC & Chem 7: 08/08/19 07:03 08/08/19 07:03 Labs: Short CBC 08/08/19 Range/Units 07:03 WBC 5.2 (4.3-11.1) K/mcL Hgb 8.1 L (12.9-16.9) g/dL Hct 26.1 L (37.5-50.1) % Plt Count 180 (140-400) K/mcL BMP 08/07/19 08/08/19 03:58 07:03 Sodium 131 L 132 L Potassium 4.6 4.6 Chloride 92 L 93 L Carbon Dioxide 27 24 BUN 21 33 H Creatinine 5.45 H 7.63 H Glucose 185 H 123 H Calcium 8.4 L 8.5 L Urine 08/07/19 Range/Units 17:50 Urine Color Red A (Yellow) Urine Clarity Cloudy A (Clear) Urine pH 5.0 (5.0-8.0) pH Units Ur Specific [place] 1.024 (1.010-1.025) Urine Protein 100 H (Neg-Trace) mg/dL Urine Glucose (UA) Normal (Normal) mg/dL - ABG Interpretation ABG results: ABG ABG pH 7.50 pH Units (7.32-7.45) H 08/07/19 17:06 ABG pCO2 42 mmHg (35-45) 08/07/19 17:06 ABG pO2 64 mmHg (85-104) L 08/07/19 17:06 ABG O2 Saturation 94 % (95-98) L 08/07/19 17:06 PT/INR, D-dimer PT 23.7 Seconds (9.4-12.1) H 08/05/19 12:22 - Impressions Impressions Chest X-Ray 08/07/19 18:42 IMPRESSION: Perihilar opacities worrisome for interstitial edema and pulmonary vascular congestion. D/ / Domingo Flowers / Domingo Flowers Interpreting Provider: Domingo Flowers - Attending Attestation I examined this patient and my medical decision-making was reviewed with the Resident Physician Dr Murray. I agree with the documented findings, disposition and treatment plan as described except to the extent set forth below. Mr Velarde is being admitted for NSTEMI and encepahlopathy etiology unknown awake and interactive today, more than ever this admission. re capped his admission for him as he stated he can't recall much prior to narcan yesterday. denies bhanu pain. states he never fell prior to admission and that was wrong. He fell and it resulted in his neck surgery. He is aware of opinion that his body is not tolerating opiates in setting of esrd and they must be significantly reduced to avoid recurrence. He is frustrated but understands there is a balance to tolerable pain during rehab vs over sedation and opiate toxicity . He does make urine at times at home. denies abd pain or dysuria currently. gen- awake, alert appears stated age eyes- pupils equal round cv- reg rate and rhythm, normal s1,s2, no le edema lungs- ctabl neuro- AAOx person, not place, appears oriented to situation when discussing meds, follows commands, CN grossly intact, moving all ext without focal deficit NSTEMI/ Severe CAD- appreciate cards input, med management, outpt fu Neck Pain chronic s/p ?fusion at [place]- XR cspine w hardware in place, issue uploading report in [employer], being faxed to floor anemia, chronicity uk- stable, at goal and hemodynamically s/p prbc 08/05, monito r Acute Encephalopathy, 2/2 Opiate toxicity in ESRD pt he does have alteration in behavior and mentation at home as per family no infectious cause identified, no metabolic cause identified (hyponatremia is chronic in nature and unlikely cause), he has no focal deficits suggesting CVA and has metal in neck prohibiting MRI -will resume gabapentin as dose is reasonable, he has been off opiates since yesterday morning, to avoid withdrawal will begin VERY low dose and monitor mentation ESRD- next HD in am Suspected UTI on UA- ucx pending, Dr Torres aware, renal dose cipro given pcn allergy further dx and plan as noted by resident dispo- when med clear [facility] tomorrow pending mentation on trial of low dose opiate Needs outpatient follow-up in 1-2 weeks s/p discharge w cards and Repeat TTE in 3 months to evaluate LVEF, if EF remains less than 30% need to consider ICD for primary prevention. <Juan Carlos Murray S - Last Filed: 08/08/19 13:19> (2) Anemia Qualifiers: Anemia type: unspecified type Qualified Code(s): D64.9 - Anemia, unspecified (9) Diabetes mellitus Qualifiers: Diabetes mellitus type: type 2 Diabetes mellitus usp insulin use: with usp use Diabetes mellitus complication status: with kidney complications Diabetes mellitus complication detail: with chronic kidney disease Chronic kidney disease stage: on chronic dialysis Qualified Code(s): E11.22 - Type 2 diabetes mellitus with diabetic chronic kidney disease; N18.6 - End stage renal disease; Z79.4 - half-way (current) use of insulin; Z99.2 - Dependence on renal dialysis (11) UTI (urinary tract infection) Qualifiers: Urinary tract infection type: site unspecified Hematuria presence: with hematuria Qualified Code(s): N39.0 - Urinary tract infection, site not specified; R31.9 - Hematuria, unspecified
[2019-08-08] MEDS ORDERED: *HR* OxyCODONE Immed Rel 5 MG TABLET PO PRN (10:24)
--- NOTE | 2019-08-08 13:02 | Event Note ---
Date of Encounter: 08/08/19 Time of Encounter: 09:00 to serve as attending attestation pending completion of resident daily prog note I examined this patient and my medical decision-making was reviewed with the Resident Physician Dr Murray. I agree with the documented findings, disposition and treatment plan as described except to the extent set forth below. Mr Velarde is being admitted for NSTEMI and encepahlopathy etiology unknown awake and interactive today, more than ever this admission. re capped his admission for him as he stated he can't recall much prior to narcan yesterday. denies bhanu pain. states he never fell prior to admission and that was wrong. He fell and it resulted in his neck surgery. He is aware of opinion that his body is not tolerating opiates in setting of esrd and they must be significantly reduced to avoid recurrence. He is frustrated but understands there is a balance to tolerable pain during rehab vs over sedation and opiate toxicity . He does make urine at times at home. denies abd pain or dysuria currently. gen- awake, alert appears stated age eyes- pupils equal round cv- reg rate and rhythm, normal s1,s2, no le edema lungs- ctabl neuro- AAOx person, not place, appears oriented to situation when discussing meds, follows commands, CN grossly intact, moving all ext without focal deficit NSTEMI/ Severe CAD- appreciate cards input, med management, outpt fu Neck Pain chronic s/p ?fusion at [place]- XR cspine w hardware in place, issue uploading report in [employer]: turn off the lights, being faxed to floor anemia, chronicity - stable, at goal and hemodynamically s/p prbc 08/05, monitor Acute Encephalopathy, 2/2 Opiate toxicity in ESRD pt he does have alteration in behavior and mentation at home as per family no infectious cause identified, no metabolic cause identified (hyponatremia is chronic in nature and unlikely cause), he has no focal deficits suggesting CVA and has metal in neck prohibiting MRI -will resume gabapentin as dose is reasonable, he has been off opiates since yesterday morning, to avoid withdrawal will begin VERY low dose and monitor mentation ESRD- next HD in am Suspected UTI on UA- ucx pending, Dr Torres aware, renal dose cipro given pcn allergy further dx and plan as noted by resident dispo- when med clear [facility], [facility] after HD tomorrow pending mentation on trial of low dose opiate Needs outpatient follow-up in 1-2 weeks s/p discharge w cards and Repeat TTE in 3 months to evaluate LVEF, if EF remains less than 30% need to consider ICD for primary prevention.
--- NOTE | 2019-08-08 17:50 | Event Note ---
Date of Encounter: 08/08/19 Time of Encounter: 17:47 Received a message from the patient's nurse that he wanted detox me about his vision. Bedside patient stated he been having episodes of double vision throughout the day intermittently. He states "I will just be staring of the TV and suddenly I started seeing double" he denies any associated headache, dizziness, new onset numbness/weakness/tingling anywhere. He is a and O 3. Physical exam showed no focal sensory deficits, 5 over 5 muscle strength bilaterally in lower extremities, upper extremity exam had an abnormal pronator drift, he is twitching mentioned in my note from today and yesterday was exacerbated significantly by closing his eyes and resolved again when he opened them, however there did not appear to be any pronator drift associated. Funduscopic exam did not reveal any papilledema or abnormalities visual field testing by confrontation did not reveal any abnormalities extraocular muscles were intact pupils were equal, round and reactive to light with good accommodation. Stat EKG and CMP ordered. Will follow up these results
[2019-08-08 18:31] LABS: Albumin 3.3 g/dL (3.5-5.7); Bilirubin,Total 0.7 mg/dL (0.3-1.0); Calcium 8.4 mg/dL (8.6-10.3); Globulin 3.4 g/dL (2.4-3.5); Potassium 4.9 mEq/L (3.5-5.1); Total Protein 6.7 g/dL (6.4-8.9)
--- NOTE | 2019-08-08 23:13 | Nephrology Progress Note ---
Date of Encounter: 08/08/19 Time of Encounter: 12:00 - Assessment and Plan (1) ESRD (end stage renal disease) on dialysis Current Visit: Yes Status: Acute Current regimen MWF at [facility]. s/p HD on friday, next session on friday planned. Continue to avoid nephrotoxins and renal dose meds. Continue strict I/O Lytes stable with sodium noted at 130, will monitor Continue renal diet (2) Altered level of consciousness Current Visit: Yes Status: Acute Per primary, patient is back at baseline. Likely multifactorial with meds, UTI etc (3) Elevated troponin Current Visit: Yes Status: Acute Per cardio. (4) Status post cervical spinal fusion Current Visit: Yes Status: Acute C spine collar in place. (5) Status post cholecystectomy Current Visit: Yes Status: Acute Subjective Interval history: Pt seen and examined sitting up in chair with neck brace in place. Was noted earlier with urinary retention s/p decompression and started on abx for UTI Objective - Vital Signs Vital signs: Vital Signs Temp Pulse Resp BP Pulse Ox 08/08/19 20:48 98.9 F 78 17 118/71 94 08/08/19 16:26 98.5 F 70 16 122/66 94 08/08/19 11:13 98.3 F 78 18 125/61 94 08/08/19 07:08 97.9 F 76 16 119/63 94 08/08/19 04:02 98 F 74 17 120/66 98 08/07/19 23:44 97.8 F 71 17 113/62 99 Intake and Output 08/08/19 08/08/19 08/08/19 07:59 15:59 23:59 Intake Total 120 / 360 240 / 360 Output Total 750 / 950 0 / 950 200 / 950 Balance -750 / -590 120 / -590 40 / -590 Intake: Oral 120 / 360 240 / 360 Output: Urine 0 / 0 Wound Drainage 750 / 950 200 / 950 Right Upper Abdomen 750 / 950 200 / 950 Other: Meal Lunch Dinner Percent of Meal Consumed 35% 50% # Bowel Movement Diapers 0 Weight 96 kg Blood Glucose* 126 226 219 Patient Weight 08/08/19 23:59 Weight 96 kg - General Appearance General appearance: Present: chronically ill (NAD) EENT: Present: ATNC, mucous membranes moist Neck: Present: no JVD, supple Respiratory: Present: clear Cardiology: Present: no edema, normal S1, normal S2 Dialysis Vascular Access: Arteriovenous Fistula thrill: Yes bruit: Yes Gastrointestinal: Present: no tenderness, no guarding Integumentary: Present: warm and dry Neurologic: Present: no focal deficit Musculoskeletal: Present: no deformities Psychiatric: Present: mood/affect appropriate, cooperative - Lab 08/08/19 07:03 08/08/19 18:00 Most recent lab results 08/08/19 18:00 Calcium 8.4 L Consult Discharge Plan - Plan [facility]errals: [facility] [Primary Care Provider] -
[2019-08-09 04:02] LABS: Basophils % 0.2 %; Eosinophils # 0.1 K/mcL (0.0-0.6); Eosinophils % 1.1 %; Hematocrit 25.7 % (37.5-50.1); Hemoglobin 8.4 g/dL (12.9-16.9); Immature Granulocytes % 0.5 % (0-4); Lymphocytes # 0.6 K/mcL (0.6-4.6); Lymphocytes % 9.4 %; Mean Corpuscular HGB Conc 32.7 g/dL (31.6-35.5); Mean Corpuscular Hemoglobin 31.2 pg (28.0-33.3); Mean Corpuscular Volume 95.5 fL (83.0-100.0); Monocytes # 0.7 K/mcL (0.0-1.3); Monocytes % 10.4 %; Neutrophils # 5.1 K/mcL (1.6-8.9); Platelet Count 185 K/mcL (140-400); Red Blood Count 2.69 M/mcL (4.19-5.50); Red Cell Distribution Width 15.1 % (11.5-14.5); Segmented Neutrophils % 78.4 %; White Blood Count 6.5 K/mcL (4.3-11.1)
[2019-08-09 04:17] LABS: Albumin 3.4 g/dL (3.5-5.7); Bilirubin,Total 0.7 mg/dL (0.3-1.0); Calcium 8.5 mg/dL (8.6-10.3); Globulin 3.5 g/dL (2.4-3.5); Potassium 5.1 mEq/L (3.5-5.1); Total Protein 6.9 g/dL (6.4-8.9)
[2019-08-09] MEDS: Levothyroxine 25 MCG TABLET PO SCH (06:14)
[2019-08-09] MEDS: Aspirin Enteric Coated 81 MG Tablet PO SCH (07:56)
[2019-08-09] MEDS: Niacin (24 HR) 500 MG TAB.ER.24H PO SCH (07:56)
[2019-08-09] MEDS: Calcium Acetate 667 MG CAPSULE PO SCH ×3 (07:56→17:02)
[2019-08-09] MEDS: Famotidine 20 MG TABLET PO SCH (07:56)
[2019-08-09] MEDS: Gabapentin 300 MG CAPSULE PO SCH (07:56)
[2019-08-09] MEDS: Renal Vitamin 1 CAP CAPSULE PO SCH (07:56)
[2019-08-09] MEDS: Ranolazine 500 MG TAB.ER.12H PO SCH ×2 (07:57→21:22)
[2019-08-09] MEDS: Insulin LISPRO 300 UNITS/3 ML VIAL SQ SCH ×4 (07:57→21:11)
[2019-08-09] MEDS: Metoprolol XL (24 HR) Succ 25 MG TAB.ER.24H PO SCH (08:15)
[2019-08-09] MEDS ORDERED: *HR* Heparin 10,000 UNIT/10 ML VIAL IV PRN ×2 (08:44)
[2019-08-09] MEDS ORDERED: 0.9 % Sodium Chloride 250 ML IVC PRN (08:44)
[2019-08-09] MEDS ORDERED: 0.9 % Sodium Chloride 1,000 ML PRIME SCH (08:45)
--- NOTE | 2019-08-09 08:47 | Neurology Progress Note ---
Date of Encounter: 08/09/19 Time of Encounter: 07:35 Assessment and Plan (1) Fluctuating mental status Current Visit: Yes Status: Acute Patient continued to have disliking mental status likely related to underlying multiple metabolic conditions and now with this recent UTI perhaps playing a significant role in the symptoms No focal motor neurological deficit noted on exam At the moment suggest to continue on current medication suggest decreasing narc otics if it is possible likely the main reason for his myoclonic jerking quite common in the patient with a renal failure He may continue to have these fluctuating mental status and myoclonic jerking . at the moment not much evidence of any seizures or any stroke on focal neurological examination (2) Myoclonic jerking Current Visit: Yes Status: Acute Subjective Interval history: Patient seen as an follow-up a stable have fluctuating mental status, sitting eating breakfast now Still having some off-and-on mild myoclonic jerking On antibiotics for UTI Objective - Constitutional Vitals: Temp Pulse Resp BP Pulse Ox 98.4 F 75 17 114/70 99 08/09/19 06:58 08/09/19 06:58 08/09/19 06:58 08/09/19 06:58 08/09/19 06:58 - Neurological Exam Motor Examination: Present: grossly full strength in all extremities Sensation intact: Present: intact Reflex and gait examination: intact Reflexes: Biceps: 1+, Triceps: 1+, Brachioradialis: 1+, Patella: 1+ Mental Status Examination: Present: awake, alert, oriented to person, oriented to place, oriented to time, follows commands appropriately, answers questions appropriately, localizes noxious stimulation Cranial nerve examination: Present: PERRL, EOMI, visual luke intact, sensory to face intact, no facial asymmetry is present, no dysarthria Cerebellar examination: Present: no dysmetria Results - Laboratory Findings CBC and BMP: 08/09/19 03:32 08/09/19 03:32 Abnormal lab findings: Abnormal lab results RBC 2.69 M/mcL (4.19-5.50) L 08/09/19 03:32 Hgb 8.4 g/dL (12.9-16.9) L 08/09/19 03:32 Hct 25.7 % (37.5-50.1) L 08/09/19 03:32 MCV 100.4 fL (83.0-100.0) H 08/08/19 07:03 MCHC 31.0 g/dL (31.6-35.5) L 08/08/19 07:03 RDW 15.1 % (11.5-14.5) H 08/09/19 03:32 Lymphocytes # 0.5 K/mcL (0.6-4.6) L 08/07/19 03:58 PT 23.7 Seconds (9.4-12.1) H 08/05/19 12:22 Heparin Anti-Xa, Unfract 0.00 IU/mL (0.30-0.70) L 08/06/19 17:48 ABG pH 7.50 pH Units (7.32-7.45) H 08/07/19 17:06 ABG pO2 64 mmHg (85-104) L 08/07/19 17:06 ABG HCO3 33 mEq/L (21-27) H 08/07/19 17:06 ABG Total CO2 34 mEq/L (20-26) H 08/07/19 17:06 ABG O2 Saturation 94 % (95-98) L 08/07/19 17:06 ABG Base Excess 9 mEq/L (-2 to 3) H 08/07/19 17:06 Sodium 130 mEq/L (136-145) L 08/09/19 03:32 Chloride 89 mEq/L (98-107) L 08/09/19 03:32 BUN 44 mg/dL (8-23) H 08/09/19 03:32 Creatinine 9.10 mg/dL (0.70-1.30) H 08/09/19 03:32 Est GFR ( Amer) 7 (> 60) L 08/09/19 03:32 Est GFR (Non-Af Amer) 6 (> 60) L 08/09/19 03:32 BUN/Creatinine Ratio 5 (6-26) L 08/09/19 03:32 Glucose 171 mg/dL (70-105) H 08/09/19 03:32 POC Glucose 217 mg/dL (70-99) H 08/08/19 16:32 Calculated Osmolality 273 (280-300) L 08/06/19 00:52 Calcium 8.5 mg/dL (8.6-10.3) L 08/09/19 03:32 Iron 24 mcg/dL (65-175) L 08/07/19 03:58 % Saturation 15 % (20-55) L 08/07/19 03:58 Transferrin 118 mg/dL (203-362) L 08/07/19 03:58 Alkaline Phosphatase 169 Units/L (34-104) H 08/09/19 03:32 Troponin I 0.57 ng/mL (< 0.04) H* 08/06/19 00:52 Albumin 3.4 g/dL (3.5-5.7) L 08/09/19 03:32 Albumin/Globulin Ratio 1.0 (1.1-2.2) L 08/09/19 03:32 Folate > 22.3 ng/mL (3.0-16.0) H 08/07/19 15:41 Ur Specimen Adequacy See below A 08/07/19 17:50 Urine Color Red (Yellow) A 08/07/19 17:50 Urine Clarity Cloudy (Clear) A 08/07/19 17:50 Urine Protein 100 mg/dL (Neg-Trace) H 08/07/19 17:50 Urine Ketones Trace mg/dL (Negative) H 08/07/19 17:50 Urine Blood Large (Negative) H 08/07/19 17:50 Urine Nitrite Positive (Negative) A 08/07/19 17:50 Urine Bilirubin Moderate (Negative) H 08/07/19 17:50 Ur Leukocyte Esterase Small (Negative) H 08/07/19 17:50 Hep Bs Antibody 4.03 mIU/mL (10.00-) L 08/05/19 18:33 MTS Gel Crossmatch See Detail 08/05/19 14:35 Consult Discharge Plan - Plan [facility]errals: [facility] [Primary Care Provider] -
[2019-08-09] MEDS ORDERED: Ondansetron 4 MG/2 ML VIAL IVP PRN (09:00)
--- NOTE | 2019-08-09 12:15 | Nephrology Progress Note ---
Date of Encounter: 08/09/19 Time of Encounter: 12:13 - Assessment and Plan (1) ESRD (end stage renal disease) on dialysis Current Visit: Yes Status: Acute Current regimen MWF at [facility]. HD planned for today. Continue to avoid nephrotoxins and renal dose meds. Continue strict I/O Lytes stable with sodium noted at 130, will monitor Continue renal diet (2) Altered level of consciousness Current Visit: Yes Status: Acute Per primary, patient is back at baseline. Likely multifactorial with meds, UTI etc. (3) Elevated troponin Current Visit: Yes Status: Acute Per cardio. (4) Status post cervical spinal fusion Current Visit: Yes Status: Acute C spine collar in place. (5) Status post cholecystectomy Current Visit: Yes Status: Acute Cholecystecomy tube in place. Subjective Principal diagnosis: ESRD Interval history: Pt seen and examined, doing well. Denies chest pain or shortness of breath. Denies nausea, vomiting, diarrhea. Appears more alert. Objective - Vital Signs Vital signs: Vital Signs Temp Pulse Resp BP Pulse Ox 08/09/19 11:09 98.0 F 76 17 130/59 95 08/09/19 06:58 98.4 F 75 17 114/70 99 08/09/19 03:32 97.9 F 73 16 124/64 94 08/09/19 00:43 98.6 F 75 16 121/68 95 08/08/19 20:48 98.9 F 78 17 118/71 94 08/08/19 16:26 98.5 F 70 16 122/66 94 Intake and Output 08/08/19 08/09/19 08/09/19 23:59 07:59 15:59 Intake Total 240 / 560 Output Total 200 / 950 175 / 175 Balance 40 / -390 -175 / -175 Intake: Oral 240 / 360 Output: Wound Drainage 200 / 950 175 / 175 Right Upper Abdomen 200 / 950 175 / 175 Other: Meal Dinner Breakfast Percent of Meal Consumed 50% 20% Blood Glucose* 219 203 197 - General Appearance General appearance: Present: well-developed, well-nourished EENT: Present: ATNC, hearing intact, vision intact Neck: Present: supple Respiratory: Present: clear Cardiology: Present: no edema, normal S1, normal S2 Dialysis Vascular Access: Arteriovenous Fistula thrill: Yes bruit: Yes Gastrointestinal: Present: normoactive bowel sounds, no tenderness, no guarding Integumentary: Present: no rash, warm and dry Additional Comments: Alert to self and location, unsure of the date. Musculoskeletal: Present: no deformities, no erythema Psychiatric: Present: mood/affect appropriate, cooperative - Lab 08/09/19 03:32 08/09/19 03:32 Most recent lab results 08/09/19 03:32 Calcium 8.5 L Consult Discharge Plan - Plan [facility]errals: [facility] [Primary Care Provider[facility] -
--- NOTE | 2019-08-09 14:27 | Discharge Summary ---
<Alexi Moy - Last Filed: 08/09/19 15:08> - NOTES TO OUTPATIENT PROVIDER Notes to Outpatient Provider: patient initially presented with chest pain, developed altered mentation while in hemodialysis likely related toopiate dose and transient hypotension. He had neurology evaluation which was normal. Has UTI treated with Cipro. Stable for transport back to [place]. Date of Encounter: 08/09/19 Time of Encounter: 09:50 - Discharge Diagnosis (1) Chest pain Priority: Primary Status: Acute Qualifiers: Chest pain type: unspecified Qualified Code(s): R07.9 - Chest pain, unspecified (2) Acute encephalopathy Priority: Secondary Status: Acute (3) UTI (urinary tract infection) Priority: Secondary Status: Acute Qualifiers: Urinary tract infection type: site unspecified Hematuria presence: with hematuria Qualified Code(s): N39.0 - Urinary tract infection, site not specified; R31.9 - Hematuria, unspecified (4) Neck pain with history of cervical spinal surgery Priority: Secondary Status: Acute (5) ESRD (end stage renal disease) on dialysis Priority: Secondary Status: Chronic (6) Urinary retention Priority: Secondary Status: Acute Hospital course: Dear Doctors, I recently had the opportunity to care for this patient during their recent hospital stay at [facility] [place]. Mr. Velarde is a 64-year-old gentleman with a past medical history of CAD, diabetes mellitus type 2, end-stage renal disease on hemodialysis, hypertension, hyperlipidemia. The patient presented at the time of admission with chest pain and concern for an STEMI. He did recently present to [facility] for cervical fusion and does still currently have neck pain. At the time of admission, the patient did present for chest pain with mild troponin elevation and some encephalopathy. He does have history of heart failure with reduced ejection fraction (EF 35%) as well which is stable, as well as end-stage renal disease on hemodialysis. The patient was seen and evaluated by cardiology who did not feel that this was an acute and STEMI, but rather felt that this was chest pain in the setting of chronic troponin elevation. He did continue to have some encephalopathy, most of which was notable significantly during the times of hemodialysis at which time he became acutely encephalopathic. neurology did see and evaluate the patient,and they suspected that this was likely the result of medication effects. The patient is on a high-dose of opioid pain medications. He did have 1 event over the course of his hospital stay where he was severely altered, requiring the use of Narcan administration which did resolve the issue. Because of the timing of these issues in the resolution with Narcan, his medications were adjusted accordingly and the patient no longer had trouble with encephalopathy. finally, throughout this workup the patient was noted to have a urinary tract infection which is amenable to treatment with ciprofloxacin that is renally dosed.The patient is now stable for discharge back to the [place] for further management. of note, the patient did require substantially less insulin than was recorded as his home dose. He will be discharged on a lower dose of insulin which may need to be titrated back up in the outpatient setting. Dx: chronic chest pain with troponin elevation, acute encephalopathy secondary to medication toxicity, status post cervical spinal fusion, ESRD on hemodialysis. Pertinent tests/consults: Cardiology did see this patient and had no recommendations for acute intervention, recommended continued medical management. repeat TTE in 3 months Follow up: -F/U with cardiology, Repeat TTE in 3 mo -F/U with Dr. Cantu (Surgery) for gallbladder drain management Med changes: Continue Cipro 500mg PO daily for renal dosing, stop date 08/12/19 Decreased Lantus to 20u HS Decreased Humalog to Sliding scale only, per directions Decreased Oxycodone to 2.5mg q6h Hold Imdur and monitor BP, may increase at [place] if BP increases Mental status: awake, fully oriented Code status: Full Code Time spent on discharge: 35 minutes It has been my pleasure participating in this patient's care. Please contact me with any questions or concerns regarding their hospital stay. Sincerely, Alexi Moy, DO Discharge discussed with: patient, nurse, social work, case management, strategy planning consultant - Time Spent with Patient Total time spent providing and/or coordinating discharge services: Time spent: Greater than 30 minutes - Discharge Medications Prescriptions: New Insulin LISPRO [HumaLOG] 0 units SQ TIDAC vial Insulin LISPRO [HumaLOG] 0 units SQ HS vial Naloxone [Narcan] 0.4 mg IVP Q2MPRN PRN inj PRN Reason: See Comments Ranolazine [Ranexa] 1,000 mg PO BID tab.er.12h Acetaminophen [Tylenol] 650 mg PO Q6HR PRN tablet PRN Reason: Mild Pain/Fever Ciprofloxacin [Cipro] 500 mg PO DAILY 2 Days #2 tablet Continued Calcium Acetate [Phos-LO] 1,334 mg PO TIDWM Ranitidine HCl [Heartburn Relief] 150 mg PO DAILY Pantoprazole Sodium [Protonix] 40 mg PO DAILY Renal Vitamin [Renal Caps Softgel] 1 mg PO DAILY Atorvastatin Calcium [Lipitor] 40 mg PO HS Buspirone HCl [Buspar] 5 mg PO TID Cetirizine HCl [24Hour Allergy] 5 mg PO DAILY Gabapentin [Neurontin] 300 mg PO DAILY Levothyroxine [Synthroid] 25 mcg PO QAM Paroxetine [Paxil] 30 mg PO QAM Aspirin Enteric Coated [Aspirin EC] 81 mg PO DAILY tablet. Niacin (24 HR) [Niaspan] 500 mg PO DAILY Ergocalciferol (VITAMIN D2) [Vitamin D2] 50,000 unit PO SA Lisinopril [Zestril] 2.5 mg PO DAILY 30 Days #30 tablet Metoprolol XL (24 HR) Succ [Toprol Xl] 12.5 mg PO DAILY 30 Days #30 tab.er.24h Melatonin/Pyridoxine HCl (B6) [Melatonin 3 mg Tablet] 1 each PO HS Clopidogrel [Plavix] 75 mg PO DAILY Oxycodone HCl 2.5 mg PO Q6H PRN 2 Days #4 tab PRN Reason: Pain Changed Insulin Glargine [Lantus] 20 unit SQ HS #0 Discontinued Insulin ASPART [NovoLOG] 45 unit SQ BIDWM Oxycodone HCl 10 mg PO Q6H PRN PRN Reason: Pain Isosorbide MONOnitrate [Isosorbide Mononitrate ER] 30 mg PO DAILY Home Medications: Calcium Acetate [Phos-LO] 1,334 mg PO TIDWM 10/04/16 [History] Pantoprazole Sodium [Protonix] 40 mg PO DAILY 10/04/16 [History] Ranitidine HCl [Heartburn Relief] 150 mg PO DAILY 10/04/16 [History] Renal Vitamin [Renal Caps Softgel] 1 mg PO DAILY 01/29/18 [History] Atorvastatin Calcium [Lipitor] 40 mg PO HS 12/10/18 [History] Buspirone HCl [Buspar] 5 mg PO TID 12/10/18 [History] Cetirizine HCl [24Hour Allergy] 5 mg PO DAILY 12/10/18 [History] Gabapentin [Neurontin] 300 mg PO DAILY 12/10/18 [History] Levothyroxine [Synthroid] 25 mcg PO QAM 12/10/18 [History] Paroxetine [Paxil] 30 mg PO QAM 12/10/18 [History] Aspirin Enteric Coated [Aspirin EC] 81 mg PO DAILY tablet. 12/14/18 [Rx] Niacin (24 HR) [Niaspan] 500 mg PO DAILY 04/28/19 [History] Ergocalciferol (VITAMIN D2) [Vitamin D2] 50,000 unit PO SA 06/25/19 [History] Lisinopril [Zestril] 2.5 mg PO DAILY 30 Days #30 tablet 06/29/19 [Rx] Metoprolol XL (24 HR) Succ [Toprol Xl] 12.5 mg PO DAILY 30 Days #30 tab.er.24h 07/11/19 [Rx] Melatonin/Pyridoxine HCl (B6) [Melatonin 3 mg Tablet] 1 each PO HS 08/05/19 [History] Clopidogrel [Plavix] 75 mg PO DAILY 08/06/19 [History] Acetaminophen [Tylenol] 650 mg PO Q6HR PRN tablet 08/09/19 [Rx] Ciprofloxacin [Cipro] 500 mg PO DAILY 2 Days #2 tablet 08/09/19 [Rx] Insulin Glargine [Lantus] 20 unit SQ HS #0 08/09/19 [Rx] Insulin LISPRO [HumaLOG] 0 units SQ HS vial 08/09/19 [Rx] Insulin LISPRO [HumaLOG] 0 units SQ TIDAC vial 08/09/19 [Rx] Naloxone [Narcan] 0.4 mg IVP Q2MPRN PRN inj 08/09/19 [Rx] Oxycodone HCl 2.5 mg PO Q6H PRN 2 Days #4 tab 08/09/19 [Rx] Ranolazine [Ranexa] 1,000 mg PO BID tab.er.12h 08/09/19 [Rx] Allergies/Adverse Reactions: Allergy/AdvReac Type Severity Reaction Status Date / Time codeine Allergy Unknown Hives Verified 07/19/19 05:01 methadone [Methadone] Allergy Unknown Rash Verified 07/19/19 05:01 Penicillins [PCN] Allergy Unknown Rash Verified 07/19/19 05:01 promethazine [From Phenergan] Allergy Unknown Hives Verified 07/19/19 05:01 trazodone Allergy Unknown Itching Verified 07/19/19 05:01 Date of admission: 08/05/19 14:52 [facility] physician: [facility] Consults: 08/05/19 14:34 Consult to Cardiology [CONS] Routine Comment: Consulting Provider: Cardiology [facility] Reason for Consult: Concern for ACS, DR. Castro discussed with Dr. Siddiqui Time Notified: 14:35 Call Completed: Yes 08/05/19 14:35 Consult to Nephrology [CONS] Routine Consulting Provider: [facility]/TANK/RICKY Reason for Consult: Dialysis patient here for ACS concerns, he is M,W,F Time Notified: 14:36 Call Completed: Yes 08/06/19 08:00 Consult to Dialysis [CONS] ONCE 08/07/19 13:48 Consult to Neurology [CONS] Routine Consulting Provider: [facility] Reason for Consult: persistent AMS, myoclonus Time Notified: 13:49 Call Completed: Yes 08/08/19 13:52 Consult to Physical Therapy [CONS] Routine Comment: Evaluate, develop and implement POC Reason for Consult: therapy/activity recs for eventual SNF placement Does patient have active BEDREST order?: No Is patient medically & hemodynamically stable?: Yes 08/09/19 08:45 Consult to Dialysis [CONS] ONCE Discharging clinician: Alexi Moy Anticipated date of discharge: 08/09/19 - Constitutional Vitals: Temp Pulse Resp BP Pulse Ox 98.0 F 76 17 130/59 95 08/09/19 11:09 08/09/19 11:09 08/09/19 11:09 08/09/19 11:09 08/09/19 11:09 General appearance: Present: A&O X 3, no acute distress Exam: Gen: Awake, C-collar in place, alert. NAD Head: Normocephalic, atraumatic ENT: Mucous membranes moist, EOMI CV: S1-S2 present, RRR, no murmurs rubs or gallops Pulm: CTAB, not tachypneic, no respiratory distress, no increased work of breathing Abd: Soft, nontender to palpation, nondistended, no rebound or guarding. Bowel sounds present. Cholecystostomy tube in place. No surrounding erythema or drainage EXT: Grossly intact motor strength in all 4 extremities, no lower extremity edema, no distal cyanosis Skin: Warm, dry, intact, no rashes or lesions noted, generalized pallor noted Neuro: Myoclonic jerks intermittently throughout exam Psych: Pleasant mood, somewhat flattened affect but generally appropriate - Patient Status Disposition: Transfer Inpatient Rehab Fac Condition: Fair Functional capacity at discharge: independent ambulation - Discharge Instructions Follow Up With: Thomas Cantu DO [Partnered Physician] - [facility] [Primary Care Provider[facility] - Gemma Suggs CNP [Partnered Physician] - - Diet and Activity Activity: increase activity as tolerated Diet: diabetic diet <Allyson Ramon - Last Filed: 08/09/19 15:27> Date of Encounter: 08/09/19 Hospital course: Mr. Velarde is a 64 year old male - Time Spent with Patient Total time spent providing and/or coordinating discharge services: Date of admission: 08/05/19 14:52 Primary care physician: PCP [place] Consults: 08/05/19 14:34 Consult to Cardiology [CONS] Routine Comment: Consulting Provider: [facility] Reason for Consult: Concern for ACS, DR. Castro discussed with Dr. Siddiqui Time Notified: 14:35 Call Completed: Yes 08/05/19 14:35 Consult to Nephrology [CONS] Routine Consulting Provider: [facility]ILKA/TANK/RICKY Reason for Consult: Dialysis patient here for ACS concerns, he is M,W,F Time Notified: 14:36 Call Completed: Yes 08/06/19 08:00 Consult to Dialysis [CONS] ONCE 08/07/19 13:48 Consult to Neurology [CONS] Routine Consulting Provider: [facility] Reason for Consult: persistent AMS, myoclonus Time Notified: 13:49 Call Completed: Yes 08/08/19 13:52 Consult to Physical Therapy [CONS] Routine Comment: Evaluate, develop and implement POC Reason for Consult: therapy/activity recs for eventual SNF placement Does patient have active BEDREST order?: No Is patient medically & hemodynamically stable?: Yes 08/09/19 08:45 Consult to Dialysis [CONS] ONCE - Constitutional Vitals: Temp Pulse Resp BP Pulse Ox 98.0 F 76 17 130/59 95 08/09/19 11:09 08/09/19 11:09 08/09/19 11:09 08/09/19 11:09 08/09/19 11:09 - Patient Status Overall status at discharge: patient is back to baseline - Diet and Activity Activity: as per physical therapy, increase activity as tolerated Diet: advance to your usual diet, diabetic diet, low fat, low cholesterol, low salt diet - Attending Attestation I examined this patient and my medical decision-making was reviewed with the Resident Physician Dr Moy. I agree with the documented findings, disposition and treatment plan as described except to the extent set forth tonja ramirez. Mr Velarde is being admitted for trop elevation and encepahlopathy. He is medically stable [facility] awake and oriented completely. He has no neck pain, chest pain or other complaints. nauseated this morning with phoslo, now resolved. No vision changes or headache. discussed dc plan in detail and [facility]. All questions answered. gen- awake, alert appears stated age eyes- pupils equal round , eom intact cv- reg rate and rhythm, normal s1,s2, no le edema lungs- ctabl, norm resp effort on room air neuro- AAOx person, place, situation, CN grossly intact, moving all ext without focal deficit Trop Elevation / Severe CAD, not NSTEMI as per cards- appreciate cards input, med management, outpt fu 1-2 weeks s/p discharge w cards and Repeat TTE in 3 months to evaluate LVEF, if EF remains less than 30% need to consider ICD for primary prevention. Hold imdur on dc and add back as BP permits outpt Neck Pain chronic s/p ?fusion at [facility]- XR cspine w hardware in place,he initially noted fall prior to admit but when no longer confused noted this not to be true- fu at [facility] anemia, chronicity uk, cannot clinically determine type- stable, at goal and hemodynamically s/p prbc 08/05, fu outpt Acute Encephalopathy, 2/2 Opiate toxicity in ESRD pt, resolved s/p narcan and then opiate significant reduction -dc on current dose opiates ESRD- cont MWF schedule Suspected UTI on UA- ucx no sig growth, but given sxs complete cipro course Cholecystostomy - fu with Dr Cantu as scheduled for outpt follow up from previous admit DM- had greatly reduced insulin need from home dosing, rec is low dose basal and glucose level monitoring with outpt adjustments as needed further dx and plan as noted by resident dispo- when med clear [facility] time spent on dc 45 min
--- NOTE | 2019-08-09 15:20 | Physician Discharge Referral ---
<MargyAlexi hamm - Last Filed: 08/09/19 15:19> ExtendedCare Referral Info Transfer To: [facility] Provider in Charge: Allyson Dangelo DO Provider in Charge after Transfer: PCP Institutional Level of Care: Skilled - Diagnosis (1) Chest pain Priority: Primary Status: Acute (2) Acute encephalopathy Priority: Secondary Status: Acute (3) UTI (urinary tract infection) Priority: Secondary Status: Acute (4) Neck pain with history of cervical spinal surgery Priority: Secondary Status: Acute (5) ESRD (end stage renal disease) on dialysis Priority: Secondary Status: Chronic (6) Urinary retention Priority: Secondary Status: Acute - Transfer Medications Prescriptions: Ciprofloxacin [Cipro] 500 mg PO DAILY 2 Days #2 tablet Prescription Printed Oxycodone HCl 2.5 mg PO Q6H PRN 2 Days #4 tab PRN Reason: Pain Prescription Printed Home Medications: Calcium Acetate [Phos-LO] 1,334 mg PO TIDWM 10/04/16 [History] Pantoprazole Sodium [Protonix] 40 mg PO DAILY 10/04/16 [History] Ranitidine HCl [Heartburn Relief] 150 mg PO DAILY 10/04/16 [History] Renal Vitamin [Renal Caps Softgel] 1 mg PO DAILY 01/29/18 [History] Atorvastatin Calcium [Lipitor] 40 mg PO HS 12/10/18 [History] Buspirone HCl [Buspar] 5 mg PO TID 12/10/18 [History] Cetirizine HCl [24Hour Allergy] 5 mg PO DAILY 12/10/18 [History] Gabapentin [Neurontin] 300 mg PO DAILY 12/10/18 [History] Levothyroxine [Synthroid] 25 mcg PO QAM 12/10/18 [History] Paroxetine [Paxil] 30 mg PO QAM 12/10/18 [History] Aspirin Enteric Coated [Aspirin EC] 81 mg PO DAILY tablet. 12/14/18 [Rx] Niacin (24 HR) [Niaspan] 500 mg PO DAILY 04/28/19 [History] Ergocalciferol (VITAMIN D2) [Vitamin D2] 50,000 unit PO SA 06/25/19 [History] Lisinopril [Zestril] 2.5 mg PO DAILY 30 Days #30 tablet 06/29/19 [Rx] Metoprolol XL (24 HR) Succ [Toprol Xl] 12.5 mg PO DAILY 30 Days #30 tab.er.24h 07/11/19 [Rx] Melatonin/Pyridoxine HCl (B6) [Melatonin 3 mg Tablet] 1 each PO HS 08/05/19 [History] Clopidogrel [Plavix] 75 mg PO DAILY 08/06/19 [History] Acetaminophen [Tylenol] 650 mg PO Q6HR PRN tablet 08/09/19 [Rx] Ciprofloxacin [Cipro] 500 mg PO DAILY 2 Days #2 tablet 08/09/19 [Rx] Insulin Glargine [Lantus] 20 unit SQ HS #0 08/09/19 [Rx] Insulin LISPRO [HumaLOG] 0 units SQ HS vial 08/09/19 [Rx] Insulin LISPRO [HumaLOG] 0 units SQ TIDAC vial 08/09/19 [Rx] Naloxone [Narcan] 0.4 mg IVP Q2MPRN PRN inj 08/09/19 [Rx] Oxycodone HCl 2.5 mg PO Q6H PRN 2 Days #4 tab 08/09/19 [Rx] Ranolazine [Ranexa] 1,000 mg PO BID tab.er.12h 08/09/19 [Rx] Allergies/Adverse Reactions: Allergy/AdvReac Type Severity Reaction Status Date / Time codeine Allergy Unknown Hives Verified 07/19/19 05:01 methadone [Methadone] Allergy Unknown Rash Verified 07/19/19 05:01 Penicillins [PCN] Allergy Unknown Rash Verified 07/19/19 05:01 promethazine [From Phenergan] Allergy Unknown Hives Verified 07/19/19 05:01 trazodone Allergy Unknown Itching Verified 07/19/19 05:01 - Respiratory Orders Smoking Cessation: Smoking cessation has been advised. For more information, call the [place] Tobacco Quit Line at 0-520-MFGJ-NOW. - Ancillary Orders May use pressure relief devices daily prn - Advance Directives Code Status: Full Code - Mobility Orders Chair - Rehabiliation Orders Rehab Potential: Good Rehab Orders: ROM Exercises, Evaluation for Physical Therapy, Evaluation for Occupational Therapy - Treatments Skin tear care topically daily PRN per policy - Diet Orders No Concentrated Sweets, Cardiac CERTIFICATION: I certify that the transfer of the above named patient to an Extended Care Facility is necessary for the continuing treatment of the diagnosis listed. The above information is true and accurate reflection of patient's current condition. Confidential - Redisclosure prohibited without a patient's written consent. <Allyson Ramon - Last Filed: 08/09/19 15:30> - Diagnosis (1) Acute encephalopathy Priority: Secondary Status: Acute (2) ESRD (end stage renal disease) on dialysis Priority: Secondary Status: Chronic (3) Elevated troponin Priority: Primary Status: Chronic (4) Neck pain with history of cervical spinal surgery Priority: Secondary Status: Chronic (5) UTI (urinary tract infection) Priority: Secondary Status: Acute (6) Congestive heart failure Priority: Secondary Status: Chronic (7) Coronary artery disease Priority: Secondary Status: Chronic - Respiratory Orders None Smoking Cessation: Smoking cessation has been advised. For more information, call the [place] Tobacco Quit Line at 3-102-WQSINOW. CERTIFICATION: I certify that the transfer of the above named patient to an Extended Care Facility is necessary for the continuing treatment of the diagnosis listed. The above information is true and accurate reflection of patient's current condition. Confidential - Redisclosure prohibited without a patient's written consent.
--- NOTE | 2019-08-09 15:22 | Event Note ---
Date of Encounter: 08/09/19 Time of Encounter: 09:20 to serve as attending attestation to DC summary pending completion of document by resident physician I examined this patient and my medical decision-making was reviewed with the Resident Physician Dr Moy. I agree with the documented findings, disposition and treatment plan as described except to the extent set forth below. Mr Velarde is being admitted for trop elevation and encepahlopathy. He is medically stable [facility]. awake and oriented completely. He has no neck pain, chest pain or other complaints. nauseated this morning with phoslo, now resolved. No vision changes or headache. discussed dc plan in detail and he will [facility]. All questions answered. gen- awake, alert appears stated age eyes- pupils equal round , eom intact cv- reg rate and rhythm, normal s1,s2, no le edema lungs- ctabl, norm resp effort on room air neuro- AAOx person, place, situation, CN grossly intact, moving all ext without focal deficit Trop Elevation / Severe CAD, not NSTEMI as per cards- appreciate cards input, med management, outpt fu 1-2 weeks s/p discharge w cards and Repeat TTE in 3 months to evaluate LVEF, if EF remains less than 30% need to consider ICD for primary prevention. Hold imdur on dc and add back as BP permits outpt Neck Pain chronic s/p ?fusion at [place]- XR cspine w hardware in place,he initially noted fall prior to admit but when no longer confused noted this not to be true- fu at [place] anemia, chronicity uk, cannot clinically determine type- stable, at goal and hemodynamically s/p prbc 08/05, fu outpt Acute Encephalopathy, 2/2 Opiate toxicity in ESRD pt, resolved s/p narcan and then opiate significant reduction -dc on current dose opiates ESRD- cont MWF schedule Suspected UTI on UA- ucx no sig growth, but given sxs complete cipro course Cholecystostomy - fu with Dr Cantu as scheduled for outpt follow up from previous admit DM- had greatly reduced insulin need from home dosing, rec is low dose basal and glucose level monitoring with outpt adjustments as needed further dx and plan as noted by resident dispo- when med clear [facility] time spent on dc 45 min
--- NOTE | 2019-08-09 18:32 | Electrocardiograph Report ---
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
[2019-08-10] MEDS: Levothyroxine 25 MCG TABLET PO SCH (05:41)
[2019-08-10 06:55] LABS: Basophils % 0.3 %; Eosinophils # 0.1 K/mcL (0.0-0.6); Eosinophils % 1.1 %; Hematocrit 27.1 % (37.5-50.1); Hemoglobin 8.6 g/dL (12.9-16.9); Immature Granulocytes % 0.6 % (0-4); Lymphocytes # 0.4 K/mcL (0.6-4.6); Lymphocytes % 5.6 %; Mean Corpuscular HGB Conc 31.7 g/dL (31.6-35.5); Mean Corpuscular Hemoglobin 30.2 pg (28.0-33.3); Mean Corpuscular Volume 95.1 fL (83.0-100.0); Mean Platelet Volume 9.6 fL (9.4-12.4); Monocytes # 0.7 K/mcL (0.0-1.3); Monocytes % 10.4 %; Neutrophils # 5.3 K/mcL (1.6-8.9); Platelet Count 188 K/mcL (140-400); Red Blood Count 2.85 M/mcL (4.19-5.50); Red Cell Distribution Width 15.2 % (11.5-14.5); White Blood Count 6.4 K/mcL (4.3-11.1)
[2019-08-10 07:00] VITALS: BP 132/65
[2019-08-10 07:12] LABS: Calcium 8.7 mg/dL (8.6-10.3); Potassium 4.7 mEq/L (3.5-5.1)
--- NOTE | 2019-08-10 07:50 | Internal Med Progress Note ---
Hospitalist Progress Note - Encounter Date of Encounter: 08/10/19 Time of Encounter: 07:47 - Exam Vitals: Temp Pulse Resp BP Pulse Ox 98.3 F 81 17 132/65 96 08/10/19 06:49 08/10/19 06:49 08/10/19 06:49 08/10/19 06:49 08/10/19 06:49 Exam: Gen: Awake, C-collar in place, alert. NAD Head: Normocephalic, atraumatic ENT: Mucous membranes moist, EOMI CV: S1-S2 present, RRR, no murmurs rubs or gallops Pulm: CTAB, not tachypneic, no respiratory distress, no increased work of breathing Abd: Soft, nontender to palpation, nondistended, no rebound or guarding. Bowel sounds present. Cholecystostomy tube in place. No surrounding erythema or drainage EXT: Grossly intact motor strength in all 4 extremities, no lower extremity edema, no distal cyanosis Skin: Warm, dry, intact, no rashes or lesions noted, generalized pallor noted Neuro: Myoclonic jerks intermittently throughout exam Psych: Pleasant mood, somewhat flattened affect but generally appropriate - Assessment and Plan (1) Chest pain Current Visit: No Status: Acute Assessment and Plan: An STEMI was ruled out, Patient has chronic chest pain Patient doing well, cardio recommends optimal medical management Will have outpatient follow-up Rpt TTE in 3 mo (2) Acute encephalopathy Current Visit: Yes Status: Resolved Assessment and Plan: Medication-induced plus transient effects of hemodialysis We will be discharged on lower dose of opiates (3) UTI (urinary tract infection) Current Visit: Yes Status: Acute Assessment and Plan: Patient has 3 more days of ciprofloxacin at renal adjusted dose (4) Neck pain with history of cervical spinal surgery Current Visit: Yes Status: Chronic Assessment and Plan: Patient on low-dose opiates for management (5) ESRD (end stage renal disease) on dialysis Current Visit: No Status: Chronic Assessment and Plan: Hemodialysis dependent, nephrology to manage (6) Urinary retention Current Visit: Yes Status: Acute DVT Prophylaxis: heparin sq - Time Spent with Patient Total time spent is greater than 50% in coordination of care (as documented) at patient's floor/unit and/or counseling patient: Internal Medicine: Result - Labs CBC & Chem 7: 08/10/19 06:31 08/10/19 06:31 Labs: Short CBC 08/10/19 Range/Units 06:31 WBC 6.4 (4.3-11.1) K/mcL Hgb 8.6 L (12.9-16.9) g/dL Hct 27.1 L (37.5-50.1) % Plt Count 188 (140-400) K/mcL Neutrophils # 5.3 (1.6-8.9) K/mcL BMP 08/10/19 06:31 Sodium 132 L Potassium 4.7 Chloride 94 L Carbon Dioxide 25 BUN 23 Creatinine 5.69 H Glucose 198 H Calcium 8.7 - ABG Interpretation ABG results: ABG ABG pH 7.50 pH Units (7.32-7.45) H 08/07/19 17:06 ABG pCO2 42 mmHg (35-45) 08/07/19 17:06 ABG pO2 64 mmHg (85-104) L 08/07/19 17:06 ABG O2 Saturation 94 % (95-98) L 08/07/19 17:06 PT/INR, D-dimer PT 23.7 Seconds (9.4-12.1) H 08/05/19 12:22 - Impressions Impressions Cervical Spine X-Ray 08/09/19 07:59 IMPRESSION: Posterior fusion of the cervical spine is noted, with placement of hardware in the interval. The alignment appears stable. D/ / 08/09/2019 08:00:53 Matthew Andujar MD / Karin Mckeon Interpreting Provider: Matthew Andujar MD Consult Discharge Plan - Plan Referrals: Thomas Cantu DO [Partnered Physician] - Gemma Suggs CNP [Partnered Physician] - [facility] - [facility] Prescriptions: Ciprofloxacin [Cipro] 500 mg PO DAILY 2 Days #2 tablet Prescription Printed Oxycodone HCl 2.5 mg PO Q6H PRN 2 Days #4 tab PRN Reason: Pain Prescription Printed (1) Chest pain Qualifiers: Chest pain type: unspecified Qualified Code(s): R07.9 - Chest pain, unspecified (3) UTI (urinary tract infection) Qualifiers: Urinary tract infection type: site unspecified Hematuria presence: with hem aturia Qualified Code(s): N39.0 - Urinary tract infection, site not specified; R31.9 - Hematuria, unspecified
[2019-08-10] MEDS: Ranolazine 500 MG TAB.ER.12H PO SCH (07:59)
[2019-08-10] MEDS: Aspirin Enteric Coated 81 MG Tablet PO SCH (08:00)
[2019-08-10] MEDS: Renal Vitamin 1 CAP CAPSULE PO SCH (08:00)
[2019-08-10] MEDS: Metoprolol XL (24 HR) Succ 25 MG TAB.ER.24H PO SCH (08:00)
[2019-08-10] MEDS: Niacin (24 HR) 500 MG TAB.ER.24H PO SCH (08:00)
[2019-08-10] MEDS: Famotidine 20 MG TABLET PO SCH (08:00)
[2019-08-10] MEDS: Insulin LISPRO 300 UNITS/3 ML VIAL SQ SCH (08:01)
[2019-08-10] MEDS: Calcium Acetate 667 MG CAPSULE PO SCH (08:01)
[2019-08-10] MEDS: Gabapentin 300 MG CAPSULE PO SCH (08:07)
== END 2019-08-10 09:39 | DRG 91 ==
LOC: 2ANU 11:14 → EMEROOARM 11:14 → 2ANU 13:59 → SUATTDRO 14:52
PROVIDERS: ADMIT Internal Medicine; ATTEND Internal Medicine

== ENCOUNTER 2019-08-18 10:18 | Observation (INO) ==
--- NOTE | 2019-08-18 10:37 | Emergency Department Note ---
Disposition Clinical Impression: Generalized weakness, End stage renal disease Fall Qualifiers: Encounter type: initial encounter Qualified Code(s): W19.XXXA - Unspecified fall, initial encounter Back pain Qualifiers: Back pain location: back pain in unspecified location Chronicity: unspecified Back pain laterality: unspecified Qualified Code(s): M54.9 - Dorsalgia, unspecified Disposition: Admitted As Inpatient Condition: Fair Referrals: [facility] [Primary Care Provider] - Forms: ED Satisfaction Letter Time of Disposition: 15:57 General Adult HPI - General Chief complaint: ED Neck Pain/Injury Stated complaint: neck/back Source: patient, EMS Mode of arrival: EMS Limitations: no limitations Nursing Notes Reviewed: Yes Vital Signs Reviewed: Yes - History of Present Illness HPI Narrative: Patient is a 64-year-old gentleman with past medical history of hypertension, CAD with angioplasty/stent, hyperlipidemia, diabetes, recent cervical fusion about 2 weeks ago who presented with a mechanical fall earlier today. Patient states that he was going to his daughter's room in his house when he was grabbing his walker, his legs felt bilaterally extremely weak. He tried holding onto his walker to stay up, however he cannot maintain his stance and fell. Unsure if he hit his head, no loss of consciousness. He denied having any chest pain, palpitations, syncope. He does have some back pain along his upper thoracic/cervical spine and lumbar spine. No recent nausea, vomiting, fevers, chills. Patient is on aspirin/Plavix. Pain Scale: 8 - Related Data Home Medications Medication Instructions Recorded Confirmed Calcium Acetate [Phos-LO] 1,334 mg PO TIDWM 10/04/16 08/05/19 Pantoprazole Sodium [Protonix] 40 mg PO DAILY 10/04/16 08/05/19 Ranitidine HCl [Heartburn Relief] 150 mg PO DAILY 10/04/16 08/05/19 Renal Vitamin [Renal Caps Softgel] 1 mg PO DAILY 01/29/18 08/05/19 Atorvastatin Calcium [Lipitor] 40 mg PO HS 12/10/18 08/05/19 Buspirone HCl [Buspar] 5 mg PO TID 12/10/18 08/05/19 Cetirizine HCl [24Hour Allergy] 5 mg PO DAILY 12/10/18 08/05/19 Gabapentin [Neurontin] 300 mg PO DAILY 12/10/18 08/05/19 Levothyroxine [Synthroid] 25 mcg PO QAM 12/10/18 08/05/19 Paroxetine [Paxil] 30 mg PO QAM 12/10/18 08/05/19 Niacin (24 HR) [Niaspan] 500 mg PO DAILY 04/28/19 08/05/19 Ergocalciferol (VITAMIN D2) 50,000 unit PO SA 06/25/19 08/05/19 [Vitamin D2] Melatonin/Pyridoxine HCl (B6) 1 each PO HS 08/05/19 08/05/19 [Melatonin 3 mg Tablet] Clopidogrel [Plavix] 75 mg PO DAILY 08/06/19 08/06/19 Previous Rx's Medication Instructions Recorded Aspirin Enteric Coated [Aspirin EC] 81 mg PO DAILY tablet. 12/14/18 Lisinopril [Zestril] 2.5 mg PO DAILY 30 Days #30 tablet 06/29/19 Metoprolol XL (24 HR) Succ [Toprol 12.5 mg PO DAILY 30 Days #30 07/11/19 Xl] tab.er.24h Acetaminophen [Tylenol] 650 mg PO Q6HR PRN tablet 08/09/19 Ciprofloxacin [Cipro] 500 mg PO DAILY 2 Days #2 tablet 08/09/19 Insulin Glargine [Lantus] 20 unit SQ HS #0 08/09/19 Insulin LISPRO [HumaLOG] 0 units SQ HS vial 08/09/19 Insulin LISPRO [HumaLOG] 0 units SQ TIDAC vial 08/09/19 Naloxone [Narcan] 0.4 mg IVP Q2MPRN PRN inj 08/09/19 Oxycodone HCl 2.5 mg PO Q6H PRN 2 Days #4 tab 08/09/19 Ranolazine [Ranexa] 1,000 mg PO BID tab.er.12h 08/09/19 Allergies Allergy/AdvReac Type Severity Reaction Status Date / Time codeine Allergy Unknown Hives Verified 07/19/19 05:01 methadone [Methadone] Allergy Unknown Rash Verified 07/19/19 05:01 Penicillins [PCN] Allergy Unknown Rash Verified 07/19/19 05:01 promethazine [From Phenergan] Allergy Unknown Hives Verified 07/19/19 05:01 trazodone Allergy Unknown Itching Verified 07/19/19 05:01 All systems ED: reviewed and negative except as stated. Review of Systems: As Per HPI Constitutional: Denies: fever, chills, weakness Eyes: Denies: eye pain, eye discharge, vision change ENT ED: Denies: ear pain, throat pain, dental pain Cardiovascular: Denies: chest pain, palpitations, dyspnea on exertion Respiratory: Denies: cough, dyspnea, wheezes Gastrointestinal: Denies: abdominal pain, nausea, vomiting Genitourinary: Denies: urgency, dysuria, frequency Musculoskeletal: Denies: back pain, neck pain, joint swelling Integumentary: Denies: rash, abrasion, lesions Neurological: Denies: headache, weakness, numbness Psychiatric: Denies: anxiety, depression, suicidal thoughts Endocrine: Denies: fatigue, heat or cold intolerance Past Medical History - Past Medical History Attestation: Yes The following information was validated with the patient. Source: patient Medical history: Reports: arthritis, coronary artery disease, diabetes, dialysis, GERD, hyperlipidemia, hypertension, myocardial infarction, renal disease, other Surgical history: Reports: angioplasty/stent, coronary bypass (CABG) (2v CABG in 1998, redo 3v CABG in 2002), orthopedic, other (Surgery on right knee x4, scope on left knee x1), other (Amputation of left great toe, re-attachment of right hand after accident at work) Psychiatric history: Reports: anxiety, depression - Social History Smoking Status: Never smoker Smokeless Tobacco Status: No Alcohol use: Reports: none Drug use: Reports: none Physical Exam GEN: Well-appearing, NAD, conversant. In a c-collar. HEAD: Normocephalic, atraumatic. EYES: PERRL, EOMI, anicteric. ENT: MMM. oropharynx without erythema or drainage. NECK: Supple. No LAD. No stiffness or restricted ROM. No tracheal deviation. HEART: Regular rate and regular rhythm, normal S1/S2, no m/r/g. LUNGS: CTAB, good air exchange bilaterally. No wheezing, rubs, or rhonchi. ABDO: Soft, nontender, nondistended with active bowel sounds. : No suprapubic tenderness or CVA tenderness. BACK: No obvious stepoffs or deformities. Tender along midline cervical spine, upper thoracic spine, lumbar spine. EXT: Without cyanosis, clubbing or edema. SKIN: Warm and dry without any rash. NEURO: Grossly nonfocal. Alert and oriented, moving all 4 extremities. CN not f ormally tested but appear grossly intact. Observed to ambulate with normal gait. PSYCH: Normal affect, no depressed or anxious mood. - General Limitations: no limitations General appearance: alert, in no apparent distress Course Course Narrative: Patient was seen and examined. Patient's vitals were stable. Blood pressures 95/62. Given 1 L normal saline bolus. CbC, CMP, trops, mags, UA, EKG, CXR. Will also CT head, C/T/L spine. Social work was consulted regarding possiblity of being discharged home. Jayant would prefer to return to [facility] rehab where he was getting treatment prior to fall. SW states that patient will need to be admitted for workup and [facility] in [facility] for [facility] to [facility]. - Reevaluation(s) Reevaluation #1: Patient was communicated to the hospitalist and was accepted for admission by Dr. Perdomo. He will have inpatient workup and referral to the [facility] rehabilitation. Vital Signs Temperature 97.6 F 08/18/19 10:23 Pulse Rate 95 08/18/19 10:23 Respiratory Rate 18 08/18/19 10:23 Blood Pressure 95/62 08/18/19 10:23 O2 Sat by Pulse Oximetry 100 08/18/19 10:23 Temperature 97.6 F 08/18/19 10:23 Pulse Rate 92 08/18/19 11:21 Respiratory Rate 15 08/18/19 11:21 Blood Pressure 113/65 08/18/19 11:21 O2 Sat by Pulse Oximetry 100 08/18/19 11:21 Oxygen Delivery Oxygen Delivery Room Air Medical Decision Making - [facility] Narrative Medical decision making narrative: Patient is a 64-year-old gentleman who sustained a mechanical fall earlier today. EKG was performed showing no ischemic changes, had a troponin of 0.05, which is lower than baseline in the context of renal disease. Low suspicion for ACS/ND. Today does have an elevated creatinine of 8, however patient is an end- stage renal disease patient with Friday dialysis. A CT of the head was performed which showed no acute intracranial abnormalities. CT of the C-spine shows some compression, but stable hardware after cervical fusion. CT of the thoracic spine did show a subacute fracture of a rib. He was discussed extensively with the patient regarding the possibility of being discharged home. Patient also had a normal chest x-ray and pelvis x-ray. However the patient expressed a desire to return to rehabilitation at the [facility]. Social work was consulted and spoke to the [facility], however the [facility] quested that the patient be admitted for workup and for a new referral to the [facility]. Patient was medicated to the hospitalist and accepted for an [place]. - Medical Records Medical records reviewed: Yes I reviewed the patient's medical records. - Lab Data Lab results reviewed: Yes I reviewed the patient's lab results. Result diagrams: 08/18/19 10:52 08/18/19 10:52 Lab Results 08/18/19 08/18/19 Range/Units 10:52 10:52 WBC 6.5 (4.3-11.1) K/mcL RBC 3.49 L (4.19-5.50) M/mcL Hgb 10.8 L (12.9-16.9) g/dL Hct 32.4 L (37.5-50.1) % MCV 92.8 (83.0-100.0) fL MCH 30.9 (28.0-33.3) pg MCHC 33.3 (31.6-35.5) g/dL RDW 15.5 H (11.5-14.5) % Plt Count 179 (140-400) K/mcL MPV 9.3 L (9.4-12.4) fL Immature Gran % 0.5 (0-4) % Seg Neutrophils % 66.5 % Lymphocytes % 20.3 % Monocytes % 10.7 % Eosinophils % 1.7 % Basophils % 0.3 % Neutrophils # 4.4 (1.6-8.9) K/mcL Lymphocytes # 1.3 (0.6-4.6) K/mcL Monocytes # 0.7 (0.0-1.3) K/mcL Eosinophils # 0.1 (0.0-0.6) K/mcL Basophils # 0.0 (0.0-0.2) K/mcL Sodium 136 (136-145) mEq/L Potassium 3.9 (3.5-5.1) mEq/L Chloride 99 (98-107) mEq/L Carbon Dioxide 23 (23-29) mEq/L BUN 39 H (8-23) mg/dL Creatinine 8.58 H (0.70-1.30) mg/dL Est GFR ( Amer) 8 L (> 60) Est GFR (Non-Af Amer) 6 L (> 60) BUN/Creatinine Ratio 5 L (6-26) Glucose 248 H (70-105) mg/dL Calculated Osmolality 300 (280-300) Calcium 9.3 (8.6-10.3) mg/dL Magnesium 2.2 (1.6-2.6) mg/dL Total Bilirubin 0.7 (0.3-1.0) mg/dL AST 80 H (13-39) Units/L ALT 86 H (7-52) Units/L Alkaline Phosphatase 237 H (34-104) Units/L Troponin I 0.05 H* (< 0.04) ng/mL Serum Total Protein 8.0 (6.4-8.9) g/dL Albumin 4.0 (3.5-5.7) g/dL Globulin 4.0 H (2.4-3.5) g/dL Albumin/Globulin Ratio 1.0 L (1.1-2.2) - Radiology Data Radiology results reviewed: Yes I reviewed the patient's radiology results. - EKG Data EKG #1 EKG attestation: Yes I reviewed and interpreted this EKG. EKG results narrative: EKG obtained at 1027. My interpretation of the EKG shows normal sinus rhythm, n ormal axis, normal intervals, no hypertrophy, no ST elevations or depressions, T-wave inversion in aVL that is consistent with prior EKG obtained from 08/08/2019. Attestation Statement - Attestation Attestation: I, oRbert Gonzalez DO, examined this patient [id number] and my medical decision-making was reviewed with Joel Flores MD, Resident Physician. I agree with the documented findings, disposition and treatment plan as described except to the extent set forth below. I personally supervised and was present for the dawn/critical portions of the procedures completed by the resident documented below. Please see my progress notes for details.
[2019-08-18] MEDS ORDERED: 0.9 % Sodium Chloride 1,000 ML IVC STA (10:52)
--- NOTE | 2019-08-18 10:58 | Emergency Department Note ---
Disposition Clinical Impression: Fall, Back pain, Generalized weakness, End stage renal disease Disposition: Admitted As Inpatient Condition: Fair [facility] Care Provider[facility] - Forms: ED Satisfaction Letter Time of Disposition: 15:56 General Adult HPI - General Chief complaint: ED Neck Pain/Injury Stated complaint: neck/back Time Seen by Provider: 08/18/19 10:30 Source: patient, EMS Mode of arrival: EMS Limitations: no limitations - History of Present Illness Pain Scale: 8 - Related Data Home Medications Medication Instructions Recorded Confirmed Calcium Acetate [Phos-LO] 1,334 mg PO TIDWM 10/04/16 08/05/19 Pantoprazole Sodium [Protonix] 40 mg PO DAILY 10/04/16 08/05/19 Ranitidine HCl [Heartburn Relief] 150 mg PO DAILY 10/04/16 08/05/19 Renal Vitamin [Renal Caps Softgel] 1 mg PO DAILY 01/29/18 08/05/19 Atorvastatin Calcium [Lipitor] 40 mg PO HS 12/10/18 08/05/19 Buspirone HCl [Buspar] 5 mg PO TID 12/10/18 08/05/19 Cetirizine HCl [24Hour Allergy] 5 mg PO DAILY 12/10/18 08/05/19 Gabapentin [Neurontin] 300 mg PO DAILY 12/10/18 08/05/19 Levothyroxine [Synthroid] 25 mcg PO QAM 12/10/18 08/05/19 Paroxetine [Paxil] 30 mg PO QAM 12/10/18 08/05/19 Niacin (24 HR) [Niaspan] 500 mg PO DAILY 04/28/19 08/05/19 Ergocalciferol (VITAMIN D2) 50,000 unit PO SA 06/25/19 08/05/19 [Vitamin D2] Melatonin/Pyridoxine HCl (B6) 1 each PO HS 08/05/19 08/05/19 [Melatonin 3 mg Tablet] Clopidogrel [Plavix] 75 mg PO DAILY 08/06/19 08/06/19 Previous Rx's Medication Instructions Recorded Aspirin Enteric Coated [Aspirin EC] 81 mg PO DAILY tablet. 12/14/18 Lisinopril [Zestril] 2.5 mg PO DAILY 30 Days #30 tablet 06/29/19 Metoprolol XL (24 HR) Succ [Toprol 12.5 mg PO DAILY 30 Days #30 07/11/19 Xl] tab.er.24h Acetaminophen [Tylenol] 650 mg PO Q6HR PRN tablet 08/09/19 Ciprofloxacin [Cipro] 500 mg PO DAILY 2 Days #2 tablet 08/09/19 Insulin Glargine [Lantus] 20 unit SQ HS #0 08/09/19 Insulin LISPRO [HumaLOG] 0 units SQ HS vial 08/09/19 Insulin LISPRO [HumaLOG] 0 units SQ TIDAC vial 08/09/19 Naloxone [Narcan] 0.4 mg IVP Q2MPRN PRN inj 08/09/19 Oxycodone HCl 2.5 mg PO Q6H PRN 2 Days #4 tab 08/09/19 Ranolazine [Ranexa] 1,000 mg PO BID tab.er.12h 08/09/19 Allergies Allergy/AdvReac Type Severity Reaction Status Date / Time codeine Allergy Unknown Hives Verified 07/19/19 05:01 methadone [Methadone] Allergy Unknown Rash Verified 07/19/19 05:01 Penicillins [PCN] Allergy Unknown Rash Verified 07/19/19 05:01 promethazine [From Phenergan] Allergy Unknown Hives Verified 07/19/19 05:01 trazodone Allergy Unknown Itching Verified 07/19/19 05:01 Past Medical History - Past Medical History Medical history: Reports: arthritis, coronary artery disease, diabetes, dialysis, GERD, hyperlipidemia, hypertension, myocardial infarction, renal disease, other Surgical history: Reports: angioplasty/stent, coronary bypass (CABG) (2v CABG in 1998, redo 3v CABG in 2002), orthopedic, other (Surgery on right knee x4, scope on left knee x1), other (Amputation of left great toe, re-attachment of right hand after accident at work) Psychiatric history: Reports: anxiety, depression - Social History Smoking Status: Never smoker Smokeless Tobacco Status: No Alcohol use: Reports: none Drug use: Reports: none Physical Exam - General Limitations: no limitations General appearance: alert, in no apparent distress Course Vital Signs Temperature 97.6 F 08/18/19 10:23 Pulse Rate 95 08/18/19 10:23 Respiratory Rate 18 08/18/19 10:23 Blood Pressure 95/62 08/18/19 10:23 O2 Sat by Pulse Oximetry 100 08/18/19 10:23 Temperature 97.6 F 08/18/19 10:23 Pulse Rate 92 08/18/19 11:21 Respiratory Rate 15 08/18/19 11:21 Blood Pressure 113/65 08/18/19 11:21 O2 Sat by Pulse Oximetry 100 08/18/19 11:21 Oxygen Delivery Oxygen Delivery Room Air Medical Decision Making - Lab Data Result diagrams: 08/18/19 10:52 08/18/19 10:52 Lab Results 08/18/19 08/18/19 Range/Units 10:52 10:52 WBC 6.5 (4.3-11.1) K/mcL RBC 3.49 L (4.19-5.50) M/mcL Hgb 10.8 L (12.9-16.9) g/dL Hct 32.4 L (37.5-50.1) % MCV 92.8 (83.0-100.0) fL MCH 30.9 (28.0-33.3) pg MCHC 33.3 (31.6-35.5) g/dL RDW 15.5 H (11.5-14.5) % Plt Count 179 (140-400) K/mcL MPV 9.3 L (9.4-12.4) fL Immature Gran % 0.5 (0-4) % Seg Neutrophils % 66.5 % Lymphocytes % 20.3 % Monocytes % 10.7 % Eosinophils % 1.7 % Basophils % 0.3 % Neutrophils # 4.4 (1.6-8.9) K/mcL Lymphocytes # 1.3 (0.6-4.6) K/mcL Monocytes # 0.7 (0.0-1.3) K/mcL Eosinophils # 0.1 (0.0-0.6) K/mcL Basophils # 0.0 (0.0-0.2) K/mcL Sodium 136 (136-145) mEq/L Potassium 3.9 (3.5-5.1) mEq/L Chloride 99 (98-107) mEq/L Carbon Dioxide 23 (23-29) mEq/L BUN 39 H (8-23) mg/dL Creatinine 8.58 H (0.70-1.30) mg/dL Est GFR ( Amer) 8 L (> 60) Est GFR (Non-Af Amer) 6 L (> 60) BUN/Creatinine Ratio 5 L (6-26) Glucose 248 H (70-105) mg/dL Calculated Osmolality 300 (280-300) Calcium 9.3 (8.6-10.3) mg/dL Magnesium 2.2 (1.6-2.6) mg/dL Total Bilirubin 0.7 (0.3-1.0) mg/dL AST 80 H (13-39) Units/L ALT 86 H (7-52) Units/L Alkaline Phosphatase 237 H (34-104) Units/L Troponin I 0.05 H* (< 0.04) ng/mL Serum Total Protein 8.0 (6.4-8.9) g/dL Albumin 4.0 (3.5-5.7) g/dL Globulin 4.0 H (2.4-3.5) g/dL Albumin/Globulin Ratio 1.0 L (1.1-2.2) Attestation Statement - Attestation Attestation: I, Robert Gonzalez DO, examined this patient [id number] and my medical decision-making was reviewed with Joel Flores MD, Resident Physician. I agree with the documented findings, disposition and treatment plan as described except to the extent set forth below. I personally supervised and was present for the dawn/critical portions of the procedures completed by the resident documented below. Please see my progress notes for details. 64-year-old male presents emergency room for evaluation of a described mechanical fall at home. Patient was at his house today and felt like his legs were weak and he fell straight onto his buttock. He did not rolled backwards or hit his head. He did not lose consciousness. He denied any chest pain shortness of breath or palpitations prior to the events. Denies any fevers or chills. He has not had any nausea vomiting or diarrhea. Currently denying vision changes or headache. Patient is alert and oriented during transport. C- collar was placed and the patient was put on a backboard secondary to discomfort in his cervical thoracic and lumbar spinal related onto his buttock. Patient did have a cervical spine fusion completed 2 weeks ago and is having pain and discomfort after today's fall. He describes no numbness tingling or paresthesias in the upper or lower extremities. He is acting appropriately at this time. Neurologic evaluation is benign head is atraumatic pupils are equal round reactive. Patient was log rolled off the backboard and did have midline tenderness to palpation with no appreciable step-offs or deformity to the cervical thoracic or lumbar spine. Main areas of pain when the midthoracic region and the lower lumbar region. Extremities appear to be stable with no gross deformity or injury. Pulses are intact in the radial and femoral distributions bilaterally. Patient has normal strength with grasp in the bilateral upper extremities and is full range of motion of the shoulders elbows and wrist. No visible signs of trauma or injury to the head. Pelvis appears to be stable in the lower extremities appear to be symmetrical. Patient will have CT imaging of the head cervical thoracic and lumbar spine. He also plain films of the chest and pelvis. Screening labs will be ordered secondary to his described weakness along with an EKG. EKG was reviewed by myself and Dr. Pastor resident physician's note. No other acute issues noted at this time. Patient is otherwise stable. Disposition pending full workup and treatment course. C-collar will be left in place. See detailed documentation the physical exam, medical intervention, medical decision-making and disposition the resident physician's documentation. No critical care applied the patient's treatment course at this time. 1415 CT imaging is unremarkable this time for bony abnormality or fracture outside of a chronic rib fracture of this time. No other acute traumatic injuries noted. Patient's vital signs and mental status of been stable throughout the entire treatment course here. Discussion was had with the patient about possible discharge home versus further workup or intervention. Patient is requesting to be discharged be does live at home by himself. His daughter is there at night. As at work during the day. Social work will be contacted further aid and resources for this patient. Disposition will be determined once this interaction has been completed. 1535 Patient is a Friday dialysis patient of the [facility]. Social work did attempt to get him transported over their facility for rehabilitation but was unable to complete this. Patient will be admitted for fall as well as generalized weakness and inability care for himself at home. [facility] after the hospital stay has been completed. Patient is otherwise stable. Dr. brady reviewed the case and no other questions or concerns at this time. Patient will be admitted for symptomatic control management and [facility] Patient will be monitored in emergency room until the admission process is completed.
[2019-08-18 11:04] LABS: Basophils % 0.3 %; Eosinophils # 0.1 K/mcL (0.0-0.6); Eosinophils % 1.7 %; Hematocrit 32.4 % (37.5-50.1); Hemoglobin 10.8 g/dL (12.9-16.9); Immature Granulocytes % 0.5 % (0-4); Lymphocytes # 1.3 K/mcL (0.6-4.6); Lymphocytes % 20.3 %; Mean Corpuscular HGB Conc 33.3 g/dL (31.6-35.5); Mean Corpuscular Hemoglobin 30.9 pg (28.0-33.3); Mean Corpuscular Volume 92.8 fL (83.0-100.0); Mean Platelet Volume 9.3 fL (9.4-12.4); Monocytes # 0.7 K/mcL (0.0-1.3); Monocytes % 10.7 %; Neutrophils # 4.4 K/mcL (1.6-8.9); Platelet Count 179 K/mcL (140-400); Red Blood Count 3.49 M/mcL (4.19-5.50); Red Cell Distribution Width 15.5 % (11.5-14.5); Segmented Neutrophils % 66.5 %; White Blood Count 6.5 K/mcL (4.3-11.1)
[2019-08-18 11:36] LABS: Bilirubin,Total 0.7 mg/dL (0.3-1.0); Calcium 9.3 mg/dL (8.6-10.3); Magnesium 2.2 mg/dL (1.6-2.6); Potassium 3.9 mEq/L (3.5-5.1); Troponin I 0.05 ng/mL (< 0.04)
--- NOTE | 2019-08-18 13:33 | Electrocardiograph Report ---
[facility] Test Date: 2019-08-18 Pat Name: Orlando Velarde Department: [id number] Room: Gender: M Lag Screwer: : [id number] Requested By: [id number] Order Number: [id number] Reading MD: Benigno Houser Measurements Intervals [place] Rate: 94 P: -66 MO: 134 QRS: 71 QRSD: 112 T: 132 QT: 383 QTc: 479 Interpretive Statements Sinus or ectopic atrial rhythm Left ventricular hypertrophy Nonspecific T abnormalities, lateral leads Anterior ST elevation, probably due to LVH Borderline prolonged QT interval Electronically Signed On 08-18-2019 13:31:48 EDT by Benigno Houser
[2019-08-18] MEDS ORDERED: Naloxone 0.4 MG/ML INJ IVP PRN (16:09)
[2019-08-18] MEDS ORDERED: Ondansetron 4 MG/2 ML VIAL IVP PRN (16:09)
--- NOTE | 2019-08-18 16:34 | Internal Med History&Physical ---
Date of Encounter: 08/18/19 Time of Encounter: 16:05 Internal Medicine - H&P: HPI Chief complaint: fall, pain over tailbone Admitted From: Home History of present illness: Mr. Velarde is a 64 year old male with history of ESRD on HD MWF, CAD, HFrEF, DM, recent C-spine fusion at [facility] who was [facility] to [facility] (but signed out AMA), presents to the ED after an episode of fall. He states that he was dissatisfied with the care he received at [facility] and signed himself out 4- 5 days ago back home. Since he got home, he fell 3 times due to LE weakness. TOday in the morning, while getting ready to goto his HD session, he was walking with his walker, felt that his legs were giving in, and fell backward landing on his tailbone. Denies any head injury or loss of consciousness. Apart from pain over tailbone and soreness over his neck that he has had since the surgery, denies any other joint pain. No seizure-like activities or loss of bowel/bladder control noted. No prodromal symptoms including chest pain, blurring of vision, palpitation, lightheadedness, or focal weakness/numbness. Denies any recent illness, fever/chills, nausea/vomiting, abdominal pain, change in bowel habits, or dysuria. In the ED, he was afebrile, BP 95/62 which normalized with IVF, and saturating well on room air. Labwork was relatively unremarkable except for mild transaminitis and minimal trop elevation of 0.05. EKG showed normal sinus rhythm without ST-T changes concerning for ischemia. CXR was unremarkable and head CT did not show any acute intracranial process. C-T-L spine CT were also unremarkable except for possible subacute left ninth posterior rib fracture. DC was contacted to see if he can return to the facility for further rehab but they requested another PT/OT eval prior to the transfer. Past Med Surg Social Fam HX - Past Medical History Medical history: arthritis, coronary artery disease, diabetes, dialysis, GERD, hyperlipidemia, hypertension, myocardial infarction, renal disease, other Additional medical history: C1,2 L 5,6 arthritis , "nerve damage " Psychiatric history: anxiety, depression - Past Surgical History Surgical History: angioplasty/stent, coronary bypass (CABG) (2v CABG in 1998, redo 3v CABG in 2002), orthopedic, other (Surgery on right knee x4, scope on left knee x1), other (Amputation of left great toe, re-attachment of right hand after accident at work) Additional surgical history: cardiac stents 04/2018 , cabg 99 and 03 , Right hand re attached previous work accident, toe left great toe, left 3rd finger unable to extend finger for a couple years . multiple knee scopes ,arthritis , left antecubital AV fistula creation at [facility]. Cervical Fusion. Bile drain. - Social History Smoking Status: Never smoker Smokeless Tobacco Status: No Alcohol use: none Drug use: none - Family History Father Adopted: No Family Member Ethnicity: Non- Living Status: Still Living Hx Family Cardiac Disorders: Yes (Coronary artery disease?) Hx Family Respiratory Disorders: No Hx Family Cancer: Yes Hx Family GI Disorders: No Hx Family Endocrine Disorder: Yes (brothers, sister) Hx Family Neuromuscular Disorders: No Hx Family Neurologic Disorders: No Hx Family HEENT Disorders: No Hx Family Autoimmune Disorders: No Brother Family Member Ethnicity: Non- Living Status: Still Living Hx Family Cardiac Disorders: Yes (MA) Sister Family Member Ethnicity: Non- Living Status: Still Living Hx Family Endocrine Disorder: Yes (DM) Mother Adopted: No Family Member Ethnicity: Non- Living Status: Still Living Hx Family Cardiac Disorders: Yes (MA, Pacemaker) Hx Family Respiratory Disorders: Yes (COPD) Hx Family Cancer: Yes Hx Family GI Disorders: No Hx Family Endocrine Disorder: Yes (DM) Hx Family Neuromuscular Disorders: No Hx Family Neurologic Disorders: No Hx Family HEENT Disorders: No Hx Family Autoimmune Disorders: No Internal Medicine - H&P: Meds Calcium Acetate [Phos-LO] 1,334 mg PO TIDWM 10/04/16 [History] Pantoprazole Sodium [Protonix] 40 mg PO DAILY 10/04/16 [History] Ranitidine HCl [Heartburn Relief] 150 mg PO DAILY 10/04/16 [History] Renal Vitamin [Renal Caps Softgel] 1 mg PO DAILY 01/29/18 [History] Atorvastatin Calcium [Lipitor] 40 mg PO HS 12/10/18 [History] Buspirone HCl [Buspar] 5 mg PO TID 12/10/18 [History] Cetirizine HCl [24Hour Allergy] 5 mg PO DAILY 12/10/18 [History] Gabapentin [Neurontin] 300 mg PO DAILY 12/10/18 [History] Levothyroxine [Synthroid] 25 mcg PO QAM 12/10/18 [History] Paroxetine [Paxil] 30 mg PO QAM 12/10/18 [History] Aspirin Enteric Coated [Aspirin EC] 81 mg PO DAILY tablet. 12/14/18 [Rx] Niacin (24 HR) [Niaspan] 500 mg PO DAILY 04/28/19 [History] Ergocalciferol (VITAMIN D2) [Vitamin D2] 50,000 unit PO SA 06/25/19 [History] Lisinopril [Zestril] 2.5 mg PO DAILY 30 Days #30 tablet 06/29/19 [Rx] Metoprolol XL (24 HR) Succ [Toprol Xl] 12.5 mg PO DAILY 30 Days #30 tab.er.24h 07/11/19 [Rx] Melatonin/Pyridoxine HCl (B6) [Melatonin 3 mg Tablet] 1 each PO HS 08/05/19 [H istory] Clopidogrel [Plavix] 75 mg PO DAILY 08/06/19 [History] Acetaminophen [Tylenol] 650 mg PO Q6HR PRN tablet 08/09/19 [Rx] Ciprofloxacin [Cipro] 500 mg PO DAILY 2 Days #2 tablet 08/09/19 [Rx] Insulin Glargine [Lantus] 20 unit SQ HS #0 08/09/19 [Rx] Insulin LISPRO [HumaLOG] 0 units SQ HS vial 08/09/19 [Rx] Insulin LISPRO [HumaLOG] 0 units SQ TIDAC vial 08/09/19 [Rx] Naloxone [Narcan] 0.4 mg IVP Q2MPRN PRN inj 08/09/19 [Rx] Oxycodone HCl 2.5 mg PO Q6H PRN 2 Days #4 tab 08/09/19 [Rx] Ranolazine [Ranexa] 1,000 mg PO BID tab.er.12h 08/09/19 [Rx] Allergy/AdvReac Type Severity Reaction Status Date / Time codeine Allergy Unknown Hives Verified 07/19/19 05:01 methadone [Methadone] Allergy Unknown Rash Verified 07/19/19 05:01 Penicillins [PCN] Allergy Unknown Rash Verified 07/19/19 05:01 promethazine [From Phenergan] Allergy Unknown Hives Verified 07/19/19 05:01 trazodone Allergy Unknown Itching Verified 07/19/19 05:01 All Systems PM: A 10-system review of systems was performed and is negative for pertinent findings except as documented above in the HPI. - Constitutional Vitals: Temp Pulse Resp BP Pulse Ox 97.6 F 100 18 124/86 100 08/18/19 10:23 08/18/19 16:09 08/18/19 16:09 08/18/19 16:09 08/18/19 16:09 Exam: General: Alert and oriented, not in acute distress. HEENT:EOM, pupils equal, round and reactive. On cervical collar Cardiovascular:Normal S1 & S2, No JVD. Pulse regular. Lungs: clear to auscultation, no wheezes/rales Abdomen:Soft, non-tender, no rigidity. Extremities: s/p L toe amputation Neurological:UE/LE power 4+/5, no focal deficits noted. CN II-XII intact, no cerebellar signs. No nystagmus Skin:Normal color, no rash, no lesions. Pulses:Carotid and radial pulses normal +2. Rest of the physical exam is non contributory Internal Med - H&P Results - Labs CBC & Chem 7: 08/18/19 10:52 08/18/19 10:52 Labs: Short CBC 08/18/19 Range/Units 10:52 WBC 6.5 (4.3-11.1) K/mcL Hgb 10.8 L (12.9-16.9) g/dL Hct 32.4 L (37.5-50.1) % Plt Count 179 (140-400) K/mcL Neutrophils # 4.4 (1.6-8.9) K/mcL BMP 08/18/19 10:52 Sodium 136 Potassium 3.9 Chloride 99 Carbon Dioxide 23 BUN 39 H Creatinine 8.58 H Glucose 248 H Calcium 9.3 Cardiac Enzymes 08/18/19 Range/Units 10:52 Troponin I 0.05 H* (< 0.04) ng/mL Liver Function 08/18/19 Range/Units 10:52 Total Bilirubin 0.7 (0.3-1.0) mg/dL AST 80 H (13-39) Units/L ALT 86 H (7-52) Units/L Alkaline Phosphatase 237 H (34-104) Units/L Albumin 4.0 (3.5-5.7) g/dL - Impressions ITS Impressions Chest X-Ray 08/18/19 10:45 IMPRESSION: 1. Interval improvement in the prominence of the pulmonary vasculature seen on the prior exam. 2. Minimal left basilar opacification, which could represent atelectasis versus airspace disease. D/ / Dallas Diaz MD / Dallas Diaz MD Interpreting Provider: Dallas Diaz MD Pelvis X-Ray 08/18/19 11:08 IMPRESSION: No acute osseous abnormality. D/ / Juani Stephenson MD / Juani Stephenson MD Interpreting Provider: Juani Stephenson MD Head CT 08/18/19 12:36 IMPRESSION: 1.No acute intracranial abnormality. D/ / Jasen Smith MD / Jasen Smith MD Interpreting Provider: Jasen Smith MD Lumbar Spine CT 08/18/19 12:37 IMPRESSION: No acute fracture involving the thoracic or lumbar spine is identified. There is a fracture involving the 9th posterior rib on the left at the costovertebral junction, though with minimal sclerotic change and osseous callus suggestive of a subacute injury. D/ / Reese Trujillo MD / Reese Trujillo MD Interpreting Provider: Reese Trujillo MD Thoracic Spine CT 08/18/19 12:37 IMPRESSION: No acute fracture involving the thoracic or lumbar spine is identified. There is a fracture involving the 9th posterior rib on the left at the costovertebral junction, though with minimal sclerotic change and osseous callus suggestive of a subacute injury. D/ / Reese Trujillo MD / Reese Trujillo MD Interpreting Provider: Reese Trujillo MD Cervical Spine CT 08/18/19 12:38 IMPRESSION: No acute abnormality of the cervical spine. Posterior fusion and decompression at C3 through C7 with orthopedic hardware in place, new from prior CT exam 07/12/2019 but stable from more recent x-rays 08/05/2019. No evidence for hardware complication noted. Stable multilevel degenerative changes. D/ / 08/18/2019 12:43:25 Arie Day MD / [email or web address] Interpreting Provider: Arie Day MD - Assessment and Plan (1) Fall Current Visit: Yes Status: Acute Assessment and plan: appears to be mechanical nature, was recommended for further rehab post C-spine fusion but signed out AMA from the facility could be slightly hypovolemic as he was borderline hypotensive which responded to IVF bolus. Currently normotensive will not give further IVF as the pt requires HD which he missed today imaging studies were unremarkable except for likely subacute left ninth posterior rib fracture. Not complaining of much pain over L ribs however complains of tailbone pain, will obtain XR of coccyx No focal neurological deficits noted, EKG without arrhythmia keep on telemetry tonight PT/OT Qualifiers: Encounter type: initial encounter Qualified Code(s): W19.XXXA - Unspecified fall, initial encounter (2) Status post cervical spinal fusion Current Visit: Yes Status: Chronic Assessment and plan: CT C-spine did not show any misalignment or loosening PT/OT as above, maintain C-collar (3) Elevated troponin Current Visit: Yes Status: Acute Assessment and plan: 0.05 without EKG changes or anginal symptoms Of note, patient was admitted from 08/05 to 08/10 for ?NSTEMI and had trop of 0.61. Pt also has ESRD likely demand ischemia with mild troponin elevation not related to CAD but will trend to ensure (4) Chronic systolic heart failure Current Visit: Yes Status: Acute Assessment and plan: not in decompensation, recently had limited echocardiogram done on 08/05 which did not show any change in EF resume home meds (5) ESRD (end stage renal disease) Current Visit: Yes Status: Chronic Assessment and plan: nephrology consulted for inpatient HD (6) CAD (coronary artery disease) Current Visit: Yes Status: Chronic Assessment and plan: Resume home meds once reconciled Qualifiers: Coronary Disease-Associated Artery/Lesion type: bypass graft [place] vs. 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
[2019-08-18] MEDS ORDERED: *HR* Dextrose 50 % in Water (Syg) 50 ML SYRINGE IVP PRN (16:45)
[2019-08-18] MEDS ORDERED: Dextrose Gel 15 GM/37.5 ML TUBE PO PRN ×2 (16:45)
[2019-08-18] MEDS ORDERED: D5% in Water 1,000 ML IVC PRN (16:45)
[2019-08-18] MEDS ORDERED: Acetaminophen 325 MG TABLET PO PRN (16:46)
[2019-08-18 17:50] LABS: Troponin I 0.04 ng/mL (< 0.04)
[2019-08-18] MEDS: *HR* Heparin 5,000 UNIT/ML VIAL SQ SCH (18:46)
[2019-08-18] MEDS ORDERED: Insulin DETEMIR 100 UNIT/ML X5UNITS SQ SCH (21:00)
[2019-08-18] MEDS: Insulin LISPRO 300 UNITS/3 ML VIAL SQ SCH (21:02)
[2019-08-18] MEDS: *HR* OxyCODONE Immed Rel 5 MG TABLET PO PRN (22:16)
[2019-08-19 01:16] LABS: Basophils % 0.3 %; Eosinophils # 0.1 K/mcL (0.0-0.6); Hematocrit 30.7 % (37.5-50.1); Hemoglobin 10.3 g/dL (12.9-16.9); Immature Granulocytes % 0.4 % (0-4); Lymphocytes % 14.6 %; Mean Corpuscular HGB Conc 33.6 g/dL (31.6-35.5); Mean Corpuscular Hemoglobin 30.7 pg (28.0-33.3); Mean Corpuscular Volume 91.6 fL (83.0-100.0); Mean Platelet Volume 9.5 fL (9.4-12.4); Monocytes # 0.7 K/mcL (0.0-1.3); Monocytes % 9.8 %; Neutrophils # 5.1 K/mcL (1.6-8.9); Platelet Count 152 K/mcL (140-400); Red Blood Count 3.35 M/mcL (4.19-5.50); Red Cell Distribution Width 15.7 % (11.5-14.5); Segmented Neutrophils % 73.9 %; White Blood Count 6.9 K/mcL (4.3-11.1)
[2019-08-19 01:25] LABS: Calcium 8.8 mg/dL (8.6-10.3); Phosphorous 6.3 mg/dL (2.7-4.5); Potassium 4.2 mEq/L (3.5-5.1)
[2019-08-19] MEDS: *HR* Heparin 5,000 UNIT/ML VIAL SQ SCH ×2 (06:26→17:27)
[2019-08-19] MEDS: Levothyroxine 25 MCG TABLET PO SCH (06:27)
[2019-08-19] MEDS: *HR* OxyCODONE Immed Rel 5 MG TABLET PO PRN (06:27)
[2019-08-19] MEDS: Famotidine 20 MG TABLET PO SCH (06:27)
[2019-08-19] MEDS ORDERED: 0.9 % Sodium Chloride 250 ML IVC PRN (07:14)
[2019-08-19] MEDS ORDERED: 0.9 % Sodium Chloride 1,000 ML PRIME SCH (07:15)
[2019-08-19] MEDS ORDERED: Insulin LISPRO 300 UNITS/3 ML VIAL SQ ONE (07:59)
[2019-08-19] MEDS: Metoprolol XL (24 HR) Succ 25 MG TAB.ER.24H PO SCH (08:13)
[2019-08-19] MEDS: Aspirin Enteric Coated 81 MG Tablet PO SCH (08:13)
[2019-08-19] MEDS: Ranolazine 500 MG TAB.ER.12H PO SCH ×2 (08:13→20:44)
[2019-08-19] MEDS: Loratadine 10 MG TABLET PO SCH (08:13)
[2019-08-19] MEDS: Gabapentin 300 MG CAPSULE PO SCH (08:13)
[2019-08-19] MEDS: Insulin LISPRO 300 UNITS/3 ML VIAL SQ SCH ×4 (08:14→20:43)
[2019-08-19] MEDS: Calcium Acetate 667 MG CAPSULE PO SCH ×3 (08:15→17:28)
--- NOTE | 2019-08-19 09:57 | Nephrology Consult Note ---
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 (2) Fall Current Visit: Yes Status: Acute per primary team Qualifiers: Encounter type: initial encounter Qualified Code(s): W19.XXXA - Unspecified fall, initial encounter History of Present Illness - Reason for Consult Consult date: 08/19/19 - Chief Complaint Falls, ESRD on HD - History of Present Illness Mr. Velarde is a 64 year old male with history of ESRD on HD MWF, CAD, HFrEF, DM, recent C-spine fusion at [facility] who was discharged to [place] rehab (but signed out AMA), presents to the ED after an episode of fall. Nephrology has been consulted to manage his dialysis care while hospitalized. Patient was seen and examined while on HD Past Med Surg Social Fam HX - Past Medical History Medical history: arthritis, coronary artery disease, diabetes, dialysis, GERD, hyperlipidemia, hypertension, myocardial infarction, renal disease, other Additional medical history: C1,2 L 5,6 arthritis , "nerve damage " Psychiatric history: anxiety, depression - Past Surgical History Surgical History: angioplasty/stent, coronary bypass (CABG) (2v CABG in 1998, redo 3v CABG in 2002), orthopedic, other (Surgery on right knee x4, scope on le ft knee x1), other (Amputation of left great toe, re-attachment of right hand after accident at work) Additional surgical history: cardiac stents 04/2018 , cabg 99 and 03 , Right hand re-attached previous work accident, left great toe amputation, left 3rd finger unable to extend finger. multiple knee scopes, left antecubital AV fistula creation at [facility]. Cervical Fusion. Bile drain. - Social History Smoking Status: Never smoker Smokeless Tobacco Status: No Alcohol use: none Drug use: none - Family History Father Adopted: No Family Member Ethnicity: Non- Living Status: Still Living Hx Family Cardiac Disorders: Yes (Coronary artery disease?) Hx Family Respiratory Disorders: No Hx Family Cancer: Yes Hx Family GI Disorders: No Hx Family Endocrine Disorder: Yes (brothers, sister) Hx Family Neuromuscular Disorders: No Hx Family Neurologic Disorders: No Hx Family HEENT Disorders: No Hx Family Autoimmune Disorders: No Brother Family Member Ethnicity: Non- Living Status: Still Living Hx Family Cardiac Disorders: Yes ([place]) Sister Family Member Ethnicity: Non- Living Status: Still Living Hx Family Endocrine Disorder: Yes (DM) Mother Adopted: No Family Member Ethnicity: Non- Living Status: Still Living Hx Family Cardiac Disorders: Yes ([place], Pacemaker) Hx Family Respiratory Disorders: Yes (COPD) Hx Family Cancer: Yes Hx Family GI Disorders: No Hx Family Endocrine Disorder: Yes (DM) Hx Family Neuromuscular Disorders: No Hx Family Neurologic Disorders: No Hx Family HEENT Disorders: No Hx Family Autoimmune Disorders: No Medications and Allergies Calcium Acetate [Phos-LO] 1,334 mg PO TIDWM 10/04/16 [History] Pantoprazole Sodium [Protonix] 40 mg PO DAILY 10/04/16 [History] Ranitidine HCl [Heartburn Relief] 150 mg PO DAILY 10/04/16 [History] Renal Vitamin [Renal Caps Softgel] 1 mg PO DAILY 01/29/18 [History] Atorvastatin Calcium [Lipitor] 40 mg PO HS 12/10/18 [History] Buspirone HCl [Buspar] 5 mg PO TID 12/10/18 [History] Cetirizine HCl [24Hour Allergy] 5 mg PO DAILY 12/10/18 [History] Gabapentin [Neurontin] 300 mg PO DAILY 12/10/18 [History] Levothyroxine [Synthroid] 25 mcg PO QAM 12/10/18 [History] Paroxetine [Paxil] 30 mg PO QAM 12/10/18 [History] Aspirin Enteric Coated [Aspirin EC] 81 mg PO DAILY tablet. 12/14/18 [Rx] Niacin (24 HR) [Niaspan] 500 mg PO DAILY 04/28/19 [History] Ergocalciferol (VITAMIN D2) [Vitamin D2] 50,000 unit PO SA 06/25/19 [History] Lisinopril [Zestril] 2.5 mg PO DAILY 30 Days #30 tablet 06/29/19 [Rx] Metoprolol XL (24 HR) Succ [Toprol Xl] 12.5 mg PO DAILY 30 Days #30 tab.er.24h 07/11/19 [Rx] Melatonin/Pyridoxine HCl (B6) [Melatonin 3 mg Tablet] 1 each PO HS 08/05/19 [History] Clopidogrel [Plavix] 75 mg PO DAILY 08/06/19 [History] Acetaminophen [Tylenol] 650 mg PO Q6HR PRN tablet 08/09/19 [Rx] Insulin Glargine [Lantus] 20 unit SQ HS #0 08/09/19 [Rx] Insulin LISPRO [HumaLOG] 0 units SQ HS vial 08/09/19 [Rx] Insulin LISPRO [HumaLOG] 0 units SQ TIDAC vial 08/09/19 [Rx] Naloxone [Narcan] 0.4 mg IVP Q2MPRN PRN inj 08/09/19 [Rx] Oxycodone HCl 2.5 mg PO Q6H PRN 2 Days #4 tab 08/09/19 [Rx] Ranolazine [Ranexa] 1,000 mg PO BID tab.er.12h 08/09/19 [Rx] Allergy/AdvReac Type Severity Reaction Status Date / Time codeine Allergy Unknown Hives Verified 08/18/19 20:53 methadone [Methadone] Allergy Unknown Rash Verified 08/18/19 20:53 Penicillins [PCN] Allergy Unknown Rash Verified 08/18/19 20:53 promethazine [From Phenergan] Allergy Unknown Hives Verified 08/18/19 20:53 trazodone Allergy Unknown Itching Verified 08/18/19 20:53 Review of Systems All Systems: reviewed and no additional remarkable complaints except as stated Constitutional: frequent falls Cardiovascular: no chest pain, no edema Respiratory: no cough Gastrointestinal: no nausea Musculoskeletal: neck pain (since recent neck surgery), other (pain over tailbone area) Neurological: no behavioral changes Exam - Vital Signs Vital signs: Initial Vital Signs Temp Pulse Resp BP Pulse Ox 97.6 F 95 18 95/62 100 08/18/19 10:23 08/18/19 10:23 08/18/19 10:23 08/18/19 10:23 08/18/19 10:23 Vital Signs - Last 8 Hours Temp Pulse Resp BP Pulse Ox 08/19/19 09:40 113/78 08/19/19 09:25 116/68 08/19/19 09:10 115/78 08/19/19 08:55 130/82 08/19/19 08:40 97.5 F L 18 124/81 08/19/19 07:00 97.5 F L 103 19 124/71 97 08/19/19 03:13 97.4 F L 89 16 119/73 100 Intake and Output 08/18/19 08/19/19 08/19/19 23:59 07:59 15:59 Intake Total 600 / 600 Output Total 350 / 350 150 / 150 Balance -350 / 650 -150 / 450 600 / 450 Intake: Intake, Rinseback and Flushes 600 / 600 Output: Other 150 / 150 Wound Drainage 350 / 350 Right Upper Abdomen 350 / 350 Other: Weight 78.9 kg Blood Glucose* 301 414 Hemodialysis Net Fluid Removed 737 (mL) Patient Weight 08/19/19 23:59 Weight 78.9 kg - General Appearance General appearance: well-developed, well-nourished EENT: ATNC, mucous membranes moist, hearing intact, vision intact Neck: supple Respiratory: clear Cardiology: no edema, normal S1, normal S2 - Dialysis Access Dialysis Vascular Access: Arteriovenous Fistula thrill: Yes bruit: Yes Gastrointestinal: no tenderness, no guarding Integumentary: warm and dry Neurologic: alert and oriented x3 Psychiatric: mood/affect appropriate, cooperative Results - Lab Results 08/19/19 00:41 08/19/19 00:41 Most recent lab results 08/19/19 00:41 Calcium 8.8 Phosphorus 6.3 H Consult Discharge Plan - Plan [facility]errals: [facility] [Primary Care Provider] -
--- NOTE | 2019-08-19 11:45 | Discharge Summary ---
- NOTES TO OUTPATIENT PROVIDER Notes to Outpatient Provider: Follow-up with orthopedics at [place] Orders not resulted at time of discharge: Pending orders 08/18/19 10:44 UA w. reflex culture [Urinalysis Reflex Cult & Micro] [URIN] Stat Date of Encounter: 08/19/19 Time of Encounter: 10:45 - Discharge Diagnosis (1) Fall Priority: Primary Status: Acute Qualifiers: Encounter type: initial encounter Qualified Code(s): W19.XXXA - Unspecified fall, initial encounter (2) Status post cervical spinal fusion Priority: Secondary Status: Chronic (3) Elevated troponin Priority: Secondary Status: Acute (4) Chronic systolic heart failure Priority: Secondary Status: Acute (5) ESRD (end stage renal disease) Priority: Secondary Status: Chronic (6) CAD (coronary artery disease) Priority: Secondary Status: Chronic Qualifiers: Coronary Disease-Associated Artery/Lesion type: bypass graft [place] vs. transplanted heart: [place] heart Associated angina: without angina Qualified Code(s): I25.810 - Atherosclerosis of coronary artery bypass graft(s) without angina pectoris (7) Type 2 diabetes mellitus with diabetic chronic kidney disease Priority: Secondary Status: Chronic Qualifiers: 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 insulin use: with intermediate use Chronic kidney disease stage: on chronic dialysis Qualified Code(s): E11.22 - Type 2 diabetes mellitus with diabetic chronic kidney disease; N18.6 - End stage renal disease; Z79.4 - care home (current) use of insulin; Z99.2 - Dependence on renal dialysis (8) DVT prophylaxis Priority: Secondary Status: Acute Hospital course: Mr. Velarde is a 64 year old male with history of ESRD on HD MWF, CAD, HFrEF, DM, recent C-spine fusion at [facility] who was discharged to [place] rehab (but signed out AMA), presents to the ED after an episode of mechanical fall. No signs and symptoms of infection. Imaging studies were negative for sequelae of traumatic injury. He did have minimally elevated trop of 0.05-0.04 without EKG changes which likely represents demand ischemia not related to ACS in the setting of ESRD. He underwent dialysis as he missed his session on the day of presentation and will be discharged to [place] rehabilitation once accepted. Discharge discussed with: patient, nurse, social work, case management - Time Spent with Patient Total time spent providing and/or coordinating discharge services: 24 mins - Discharge Medications Prescriptions: Continued Calcium Acetate [Phos-LO] 1,334 mg PO TIDWM Ranitidine HCl [Heartburn Relief] 150 mg PO DAILY Pantoprazole Sodium [Protonix] 40 mg PO DAILY Renal Vitamin [Renal Caps Softgel] 1 mg PO DAILY Atorvastatin Calcium [Lipitor] 40 mg PO HS Buspirone HCl [Buspar] 5 mg PO TID Cetirizine HCl [24Hour Allergy] 5 mg PO DAILY Gabapentin [Neurontin] 300 mg PO DAILY Levothyroxine [Synthroid] 25 mcg PO QAM Paroxetine [Paxil] 30 mg PO QAM Aspirin Enteric Coated [Aspirin EC] 81 mg PO DAILY tablet. Niacin (24 HR) [Niaspan] 500 mg PO DAILY Ergocalciferol (VITAMIN D2) [Vitamin D2] 50,000 unit PO SA Metoprolol XL (24 HR) Succ [Toprol Xl] 12.5 mg PO DAILY 30 Days #30 tab.er .24h Melatonin/Pyridoxine HCl (B6) [Melatonin 3 mg Tablet] 1 each PO HS Clopidogrel [Plavix] 75 mg PO DAILY Insulin LISPRO [HumaLOG] 0 units SQ TIDAC vial Insulin LISPRO [HumaLOG] 0 units SQ HS vial Naloxone [Narcan] 0.4 mg IVP Q2MPRN PRN inj PRN Reason: See Comments Ranolazine [Ranexa] 1,000 mg PO BID tab.er.12h Acetaminophen [Tylenol] 650 mg PO Q6HR PRN tablet PRN Reason: Mild Pain/Fever Insulin Glargine [Lantus] 20 unit SQ HS #0 Oxycodone HCl 2.5 mg PO Q6H PRN 2 Days #4 tab PRN Reason: Pain Discontinued Lisinopril [Zestril] 2.5 mg PO DAILY 30 Days #30 tablet Home Medications: Calcium Acetate [Phos-LO] 1,334 mg PO TIDWM 10/04/16 [History] Pantoprazole Sodium [Protonix] 40 mg PO DAILY 10/04/16 [History] Ranitidine HCl [Heartburn Relief] 150 mg PO DAILY 10/04/16 [History] Renal Vitamin [Renal Caps Softgel] 1 mg PO DAILY 01/29/18 [History] Atorvastatin Calcium [Lipitor] 40 mg PO HS 12/10/18 [History] Buspirone HCl [Buspar] 5 mg PO TID 12/10/18 [History] Cetirizine HCl [24Hour Allergy] 5 mg PO DAILY 12/10/18 [History] Gabapentin [Neurontin] 300 mg PO DAILY 12/10/18 [History] Levothyroxine [Synthroid] 25 mcg PO QAM 12/10/18 [History] Paroxetine [Paxil] 30 mg PO QAM 12/10/18 [History] Aspirin Enteric Coated [Aspirin EC] 81 mg PO DAILY tablet. 12/14/18 [Rx] Niacin (24 HR) [Niaspan] 500 mg PO DAILY 04/28/19 [History] Ergocalciferol (VITAMIN D2) [Vitamin D2] 50,000 unit PO SA 06/25/19 [History] Metoprolol XL (24 HR) Succ [Toprol Xl] 12.5 mg PO DAILY 30 Days #30 tab.er.24h 07/11/19 [Rx] Melatonin/Pyridoxine HCl (B6) [Melatonin 3 mg Tablet] 1 each PO HS 08/05/19 [History] Clopidogrel [Plavix] 75 mg PO DAILY 08/06/19 [History] Acetaminophen [Tylenol] 650 mg PO Q6HR PRN tablet 08/09/19 [Rx] Insulin Glargine [Lantus] 20 unit SQ HS #0 08/09/19 [Rx] Insulin LISPRO [HumaLOG] 0 units SQ HS vial 08/09/19 [Rx] Insulin LISPRO [HumaLOG] 0 units SQ TIDAC vial 08/09/19 [Rx] Naloxone [Narcan] 0.4 mg IVP Q2MPRN PRN inj 08/09/19 [Rx] Ranolazine [Ranexa] 1,000 mg PO BID tab.er.12h 08/09/19 [Rx] Oxycodone HCl 2.5 mg PO Q6H PRN 2 Days #4 tab 08/19/19 [Rx] Allergies/Adverse Reactions: Allergy/AdvReac Type Severity Reaction Status Date / Time codeine Allergy Unknown Hives Verified 08/18/19 20:53 methadone [Methadone] Allergy Unknown Rash Verified 08/18/19 20:53 Penicillins [PCN] Allergy Unknown Rash Verified 08/18/19 20:53 promethazine [From Phenergan] Allergy Unknown Hives Verified 08/18/19 20:53 trazodone Allergy Unknown Itching Verified 08/18/19 20:53 Date of admission: 08/18/19 16:31 [facility] physician: [facility] Consults: 08/18/19 16:11 Consult to Occupational Therapy [CONS] Routine Comment: Evaluate, develop and implement POC Reason for Consult: fall, recent C-spine fusion Does patient have active BEDREST order?: No Is patient medically & hemodynamically stable?: Yes Consult to Physical Therapy [CONS] Routine Comment: Evaluate, develop and implement POC Reason for Consult: fall, recent C-spine fusion Does patient have active BEDREST order?: No Is patient medically & hemodynamically stable?: Yes 08/18/19 16:27 Consult to Nephrology [CONS] Routine Consulting Provider: Kidney Poonam/MILKA/TANK/RICKY Reason for Consult: ESRD on HD Call Completed: Yes 08/18/19 18:58 Consult to Commission Associate [CONS] Routine Reason for SW Consult: possible needs for PT, OT, HH at discharge 08/19/19 07:15 Consult to Dialysis [CONS] ONCE - Constitutional Vitals: Temp Pulse Resp BP Pulse Ox 97.5 F L 103 18 92/59 97 08/19/19 08:40 08/19/19 07:00 08/19/19 08:40 08/19/19 10:55 08/19/19 07:00 Exam: General: Alert and oriented, not in acute distress. HEENT:On cervical collar Cardiovascular:Normal S1 & S2, No JVD. Pulse regular. Lungs: clear to auscultation, no wheezes/rales Abdomen:Soft, non-tender, no rigidity. Extremities: s/p L toe amputation Neurological:UE/LE power 4+/5, no focal deficits noted. CN II-XII intact, no cer ebellar signs. No nystagmus - Patient Status Disposition: Transfer Inpatient Rehab Fac Condition: Fair Functional capacity at discharge: uses cane/walker - Discharge Instructions Instructions: Fall Prevention (DC) [facility]: [facility] [Primary Care Provider] - - Diet and Activity Activity: as per physical therapy Diet: diabetic diet
--- NOTE | 2019-08-19 11:50 | Physician Discharge Referral ---
ExtendedCare Referral Info Institutional Level of Care: Intermediate - Diagnosis (1) Fall Priority: Primary Status: Acute (2) Status post cervical spinal fusion Priority: Secondary Status: Chronic (3) Elevated troponin Priority: Secondary Status: Acute (4) Chronic systolic heart failure Priority: Secondary Status: Acute (5) ESRD (end stage renal disease) Priority: Secondary Status: Chronic (6) CAD (coronary artery disease) Priority: Secondary Status: Chronic (7) Type 2 diabetes mellitus with diabetic chronic kidney disease Priority: Secondary Status: Chronic (8) DVT prophylaxis Priority: Secondary Status: Acute Prognosis: Fair - Transfer Medications Prescriptions: Oxycodone HCl 2.5 mg PO Q6H PRN 2 Days #4 tab PRN Reason: Pain Prescription Printed Home Medications: Calcium Acetate [Phos-LO] 1,334 mg PO TIDWM 10/04/16 [History] Pantoprazole Sodium [Protonix] 40 mg PO DAILY 10/04/16 [History] Ranitidine HCl [Heartburn Relief] 150 mg PO DAILY 10/04/16 [History] Renal Vitamin [Renal Caps Softgel] 1 mg PO DAILY 01/29/18 [History] Atorvastatin Calcium [Lipitor] 40 mg PO HS 12/10/18 [History] Buspirone HCl [Buspar] 5 mg PO TID 12/10/18 [History] Cetirizine HCl [24Hour Allergy] 5 mg PO DAILY 12/10/18 [History] Gabapentin [Neurontin] 300 mg PO DAILY 12/10/18 [History] Levothyroxine [Synthroid] 25 mcg PO QAM 12/10/18 [History] Paroxetine [Paxil] 30 mg PO QAM 12/10/18 [History] Aspirin Enteric Coated [Aspirin EC] 81 mg PO DAILY tablet. 12/14/18 [Rx] Niacin (24 HR) [Niaspan] 500 mg PO DAILY 04/28/19 [History] Ergocalciferol (VITAMIN D2) [Vitamin D2] 50,000 unit PO SA 06/25/19 [History] Metoprolol XL (24 HR) Succ [Toprol Xl] 12.5 mg PO DAILY 30 Days #30 tab.er.24h 07/11/19 [Rx] Melatonin/Pyridoxine HCl (B6) [Melatonin 3 mg Tablet] 1 each PO HS 08/05/19 [History] Clopidogrel [Plavix] 75 mg PO DAILY 08/06/19 [History] Acetaminophen [Tylenol] 650 mg PO Q6HR PRN tablet 08/09/19 [Rx] Insulin Glargine [Lantus] 20 unit SQ HS #0 08/09/19 [Rx] Insulin LISPRO [HumaLOG] 0 units SQ HS vial 08/09/19 [Rx] Insulin LISPRO [HumaLOG] 0 units SQ TIDAC vial 08/09/19 [Rx] Naloxone [Narcan] 0.4 mg IVP Q2MPRN PRN inj 08/09/19 [Rx] Ranolazine [Ranexa] 1,000 mg PO BID tab.er.12h 08/09/19 [Rx] Oxycodone HCl 2.5 mg PO Q6H PRN 2 Days #4 tab 08/19/19 [Rx] Allergies/Adverse Reactions: Allergy/AdvReac Type Severity Reaction Status Date / Time codeine Allergy Unknown Hives Verified 08/18/19 20:53 methadone [Methadone] Allergy Unknown Rash Verified 08/18/19 20:53 Penicillins [PCN] Allergy Unknown Rash Verified 08/18/19 20:53 promethazine [From Phenergan] Allergy Unknown Hives Verified 08/18/19 20:53 trazodone Allergy Unknown Itching Verified 08/18/19 20:53 - Respiratory Orders Smoking Cessation: Smoking cessation has been advised. For more information, call the [place] Tobacco Quit Line at 8-242-LSHY-NOW. - Advance Directives Code Status: Full Code - Rehabiliation Orders Rehab Orders: Evaluation for Physical Therapy, Evaluation for Occupational Therapy - Diet Orders No Concentrated Sweets CERTIFICATION: I certify that the transfer of the above named patient to an Extended Care Facility is necessary for the continuing treatment of the diagnosis listed. The above information is true and accurate reflection of patient's current condition. Confidential - Redisclosure prohibited without a patient's written consent.
[2019-08-19] MEDS ORDERED: Insulin DETEMIR 100 UNIT/ML X5UNITS SQ SCH (21:00)
[2019-08-20] MEDS: *HR* OxyCODONE Immed Rel 5 MG TABLET PO PRN (01:31)
[2019-08-20 04:44] LABS: Basophils % 0.2 %; Eosinophils # 0.1 K/mcL (0.0-0.6); Eosinophils % 1.8 %; Hematocrit 31.7 % (37.5-50.1); Hemoglobin 10.5 g/dL (12.9-16.9); Immature Granulocytes % 0.4 % (0-4); Lymphocytes # 0.9 K/mcL (0.6-4.6); Lymphocytes % 16.1 %; Mean Corpuscular HGB Conc 33.1 g/dL (31.6-35.5); Mean Corpuscular Hemoglobin 30.9 pg (28.0-33.3); Mean Corpuscular Volume 93.2 fL (83.0-100.0); Monocytes # 0.6 K/mcL (0.0-1.3); Monocytes % 11.6 %; Neutrophils # 3.9 K/mcL (1.6-8.9); Platelet Count 127 K/mcL (140-400); Red Cell Distribution Width 15.7 % (11.5-14.5); Segmented Neutrophils % 69.9 %; White Blood Count 5.5 K/mcL (4.3-11.1)
[2019-08-20 05:03] LABS: Calcium 8.9 mg/dL (8.6-10.3); Potassium 4.2 mEq/L (3.5-5.1)
[2019-08-20] MEDS: Famotidine 20 MG TABLET PO SCH (06:51)
[2019-08-20] MEDS: Levothyroxine 25 MCG TABLET PO SCH (06:51)
[2019-08-20] MEDS: *HR* Heparin 5,000 UNIT/ML VIAL SQ SCH (06:51)
[2019-08-20] MEDS ORDERED: 0.9 % Sodium Chloride 250 ML IVC PRN (06:59)
[2019-08-20] MEDS: Aspirin Enteric Coated 81 MG Tablet PO SCH (08:25)
[2019-08-20] MEDS: Ranolazine 500 MG TAB.ER.12H PO SCH (08:25)
[2019-08-20] MEDS: Loratadine 10 MG TABLET PO SCH (08:25)
[2019-08-20] MEDS: Gabapentin 300 MG CAPSULE PO SCH (08:25)
[2019-08-20] MEDS: Calcium Acetate 667 MG CAPSULE PO SCH ×2 (08:25→12:20)
[2019-08-20] MEDS: Metoprolol XL (24 HR) Succ 25 MG TAB.ER.24H PO SCH (08:26)
[2019-08-20] MEDS: Insulin LISPRO 300 UNITS/3 ML VIAL SQ SCH ×2 (08:26→12:20)
[2019-08-20 14:08] VITALS: BP 111/65
--- NOTE | 2019-08-20 15:09 | Nephrology Progress Note ---
Date of Encounter: 08/20/19 Time of Encounter: 12:00 - Assessment and Plan (1) ESRD (end stage renal disease) Status: Chronic HD MWF Continue HD with UF as tolerated Continue renal diet Continue strict I/Os Continue to avoid nephroxoins if possible (2) Fall Status: Acute per primary team Qualifiers: Encounter type: initial encounter Qualified Code(s): W19.XXXA - Unspecified fall, initial encounter Subjective Interval history: Interim noted, pt seen and examined on HD s/p HD yesterday as well back to back. No new complaints Objective - Vital Signs Vital signs: Vital Signs Temp Pulse Resp BP Pulse Ox 08/20/19 13:05 97.6 F 18 111/65 08/20/19 12:45 105/51 08/20/19 12:30 109/59 08/20/19 12:15 98/57 08/20/19 12:00 108/53 08/20/19 11:45 109/58 08/20/19 11:30 100/50 08/20/19 11:15 93/50 08/20/19 11:00 96/48 08/20/19 10:45 104/49 08/20/19 10:30 107/51 08/20/19 10:15 95/49 08/20/19 10:00 95/49 08/20/19 09:45 97.9 F 18 94/48 08/20/19 08:12 98.0 F 90 17 96/60 99 08/20/19 03:29 98.3 F 92 16 92/55 100 08/19/19 23:21 98.2 F 89 16 113/69 100 08/19/19 18:59 98.1 F 87 16 104/64 100 08/19/19 16:46 98.1 F 86 16 94/57 100 Intake and Output 08/19/19 08/20/19 08/20/19 23:59 07:59 15:59 Intake Total 240 / 960 600 / 600 Output Total 3000 / 3000 Balance 240 / -2090 -2400 / -2400 Intake: Oral 240 / 360 0 / 0 Intake, Rinseback and Flushes 600 / 600 Output: Urine 0 / 0 Total Dialysis (HD) Output 2600 / 2600 Wound Drainage 400 / 400 Right Upper Abdomen 400 / 400 Other: Meal Dinner Percent of Meal Consumed 10% Weight 79.5 kg Blood Glucose* 209 309 Hemodialysis Net Fluid Removed 2000 (mL) Patient Weight 08/20/19 23:59 Weight 79.5 kg - General Appearance General appearance: Present: chronically ill (NAD) EENT: Present: ATNC, mucous membranes moist Neck: Present: no JVD, supple Respiratory: Present: clear Cardiology: Present: no edema, normal S1, normal S2 Dialysis Vascular Access: Arteriovenous Fistula thrill: Yes bruit: Yes Gastrointestinal: Present: no tenderness, no guarding Integumentary: Present: warm and dry Neurologic: Present: no focal deficit Musculoskeletal: Present: no deformities Psychiatric: Present: mood/affect appropriate, cooperative - Lab 08/20/19 03:39 08/20/19 03:39 Most recent lab results 08/20/19 03:39 Calcium 8.9 Consult Discharge Plan - Plan Instructions: Fall Prevention (DC) [facility]errals: [facility] [Primary Care Provider] - Prescriptions: Oxycodone HCl 2.5 mg PO Q6H PRN 2 Days #4 tab PRN Reason: Pain Prescription Printed
[2019-08-21] MEDS ORDERED: Famotidine 20 MG TABLET PO SCH (06:30)
== END 2019-08-20 14:08 ==
LOC: 3BNU 10:18 → EMEROOARM 10:18 → SUATTDRO 16:31 → 3BNU 17:51
PROVIDERS: ADMIT Internal Medicine; ATTEND Internal Medicine